=== PATIENT | female | born 1940 | race Caucasian/White ===

== ENCOUNTER 2022-03-10 15:13 | Observation (INO) | payer MEDICARE, OTHER, SELFPAY ==
[2022-03-10] VITALS (11 sets, daily range): BP systolic 149–201; BP diastolic 59–106; PULSE 78–91; RESP 15–18; TEMP 36.1–36.8; O2SAT 95–99; BMI 27.9; BMI 27.1
--- NOTE | 2022-03-10 15:17 | ED.RN ---
THIS RN CALLED FROM [facility] TO HAVE PT EVALUATED BY PHYSICIAN IN [facility] DUE TO NEURO SX. PT ROOMED, AT REQUEST OF PHYSICIAN. NO STROKE ALERT INITIATED IN [facility] DUE TO PHYSICIAN REQUEST TO SEE PT IN ROOM.
--- NOTE | 2022-03-10 15:23 | EKG12_ITS ---
Test Reason : R/O STROKE Blood Pressure : / mmHG Vent. Rate : 084 BPM Atrial Rate : 084 BPM P-R Int : 238 ms QRS Dur : 092 ms QT Int : 386 ms P-R-T Axes : 040 014 026 degrees QTc Int : 456 ms Sinus rhythm with 1st degree A-V block Nonspecific ST and T wave abnormality Abnormal ECG Confirmed by HERMELINDO BURDICK, JENNIFER ([id number]), society editor RAFIQ COMBS ([id number]) on 03/15/2022 10:18:23 AM Referred By: LÓPEZ Confirmed By:JENNIFER CASAREZ MD
--- NOTE | 2022-03-10 15:27 | CT_ITS ---
STUDY: CT HEAD STROKE PROTOCOL W/O CONTRAST INJECTION REASON FOR EXAM: Female, 81 years old. Neuro deficit, acute, stroke suspected RADIATION DOSAGE (If Supplied By Facility): CTDIvol = ( 47.06 ) mGy, DLP = ( 907.97 ) mGycm TECHNIQUE: Transaxial CT imaging of the brain was performed without administration of intravenous contrast material. Individualized dose optimization techniques were used for this CT. COMPARISON: No relevant priors. FINDINGS: There is a 1.5 cm soft tissue density overlying the left frontal bone. This may represent epidermoid. Normal calvarium. There is mild cerebral atrophy with widening of the extra-axial spaces and ventricular dilatation. There are areas of decreased attenuation within the white matter tracts of the supratentorial brain, consistent with microvascular disease changes. Normal basal ganglia and thalami. Normal brainstem. Normal cerebellum. There is no intracranial hemorrhage. There are no findings of an acute ischemic infarction. Atherosclerotic calcification of the cavernous portions of the internal carotid arteries bilaterally. Normal visualized paranasal sinuses. ASPECT score: 10 CT/STROKE Brain/Head without Cont IMPRESSION: Chronic involutional changes of the brain. N.B. : The above Results were Read Back by Klyer Rosenbaum MD to [facility] and understanding confirmed on 03/10/2022 15:38:46 (ET). Electronically Signed: Kyler Rosenbaum MD at 15:40 EDT ,
--- NOTE | 2022-03-10 15:27 | CT_ITS ---
STUDY: CTA HEAD AND NECK WITH CONTRAST REASON FOR EXAM: Female, 81 years old. Neuro deficit, acute, stroke suspected RADIATION DOSAGE (If Supplied By Facility): CTDIvol = ( 17.74 ) mGy, DLP = ( 887.62 ) mGycm TECHNIQUE: CT angiography was performed with a multi-detector CT scanner. Data acquisition was obtained from the skull base through the vertex following intravenous administration of IV 100mL Isovue-370. MIP images were reconstructed from the axial data set. Post-processing of the angiographic images was performed, with multiplanar reformation and 3D reconstruction. Individualized dose optimization techniques were used for this CT. COMPARISON: No relevant priors. FINDINGS: Normal bilateral petrous carotid arteries. There is calcified plaque formation of the right cavernous carotid artery, without a cross-sectional luminal stenosis. There is calcified plaque formation of the left cavernous carotid artery, without a cross-sectional luminal stenosis. Normal right A1 segments of the anterior cerebral artery. Normal left A1 segments of the anterior cerebral artery. Normal intact anterior communicating artery (ACOM). Normal bilateral A2 segments of the anterior cerebral arteries. Normal right M1 and M2 segments of the middle cerebral arteries, with a normal M1 bifurcation. Normal left M1 and M2 segments of the middle cerebral arteries, with a normal M1 bifurcation. Normal right posterior communicating artery (PCOM). Normal left posterior communicating artery (PCOM). Normal bilateral vertebral arteries. Normal basilar artery with a normal basilar bifurcation. The visualized bilateral superior cerebellar (SCA) arteries are normal. Normal bilateral P1, P2 and visualized P3 segments of the posterior cerebral arteries. There is no demonstrated aneurysm of the [place]. There is no demonstrated abnormality of the visualized brain. AORTIC ARCH: There is atherosclerotic calcific plaque formation of the aortic arch and great vessels arising from the aortic arch, without a hemodynamically significant stenosis. There is a normal origin of the brachiocephalic, left common carotid, and left subclavian arteries. RIGHT CAROTID ARTERIES: Normal right common carotid artery (CCA). Normal right common carotid bulb. There is mild atherosclerotic plaque formation of the origin of the right internal carotid artery with less than 50% cross sectional diameter stenosis. Normal visualized cervical portion of the right internal carotid artery. Normal origin of the right external carotid artery (ECA). LEFT CAROTID ARTERIES: Normal left common carotid artery (CCA). Normal left common carotid bulb. There is extensive atherosclerotic plaque formation of the origin of the left internal carotid artery with an estimated stenosis of greater than 70%. Normal visualized cervical portion of the left internal carotid artery. Normal origin of the left external carotid artery (ECA). VERTEBRAL ARTERIES: Normal bilateral vertebral arteries. CT/STROKE CTA Head AND Neck W/Con IMPRESSION: Calcific plaque at the origin of the left internal carotid artery causing approximately 70% narrowing. Calcific plaques at the origin of the right internal carotid artery causing less than 50% narrowing. N.B. : The above Results were Read Back by Kyler Rosenbaum MD to [facility] and understanding confirmed on 03/10/2022 15:47:53 (ET). Electronically Signed: Kyler Rosenbaum MD at 15:49 EDT ,
[2022-03-10 15:41] LABS: Absolute Lymphocyte Count 2.05 X10^3/uL (0.83-4.51); Basophil# 0.04 X10^3/uL; Basophil% 0.5 % (0-1); Eosinophil# 0.16 X10^3/uL; Eosinophils% 2.1 % (0-5); Hematocrit 40.5 % (37-47); Hemoglobin 13.4 g/dL (12.0-15.0); Lymphocyte # 2.05 X10^3/ul (0.83-4.51); Lymphocyte % 26.3 % (19-41); Mean Corp Hgb Conc 33.1 g/dL (32-36); Mean Corpuscular Hgb 30.2 pg (27.0-32.0); Mean Corpuscular Volume 91.4 fL (81-99); Mean Platelet Vol. 9.9 fl (6.2-12.0); Monocyte# 0.49 X10^3/uL; Monocyte% 6.3 % (0-10); NRBC Flagged by Analyzer 0 % (0-5); Neutrophil # 5.03 X10^3/uL (2.7-7.7); Neutrophil % 64.5 % (47-70); Platelet Count 212 K/mm3 (150-450); RBC Distribution Width CV 13.3 % (11.6-14.6); RBC Distribution Width SD 44.5 fl (35.1-43.9); Red Blood Count 4.43 M/mm3 (4.2-5.4); White Blood Count 7.8 K/mm3 (4.4-11.0)
[2022-03-10 15:43] LABS: Prothrombin Time (Protime)PT. 12.9 SECONDS (11.7-14.9)
--- NOTE | 2022-03-10 15:49 | EDS_ITS ---
HPI History of Present Illness Chief Complaint: Dizziness Detail of Chief Complaint: Vertigo with onset at 1330 Informant: patient Onset/Context/Timing Onset: Hours Context: Sudden Onset Timing: Continuous Onset: Vertigo Current Severity: Mild Maximum Severity: Moderate Worsened by: Nothing Relieved by: Nothing Associated Symptoms Associated Symptoms: Negative for Headache, Nausea, Vomiting or Chest Pain Narrative Narrative: Patient is a 81-year-old woman with history of type 2 diabetes, hypercholesterolemia who presents with vertigo that started at 1330.'s been continuous. Is not positional. She denies double vision or blurred vision. Denies ringing in ears decreased hearing. Denies trouble with speech or swallowing. She denies paresthesia or anesthesia. She denies weakness in her upper or lower extremities. She denies cardiac, respiratory or GI symptoms. She denies urologic symptoms. Her only complaint is spinning. Her spinning does not resolve when she closes her eyes. Prior similar symptoms: No Recent Illness/Hospitalization: No [facility] Medical History Diabetes Diabetes Hyperlipemia Home Medications fexofenadine 60 mg tablet 60 mg PO BID 03/10/22 [History Last Taken Unknown] fluticasone propionate 110 mcg/actuation HFA aerosol inhaler (Flovent HFA) 2 puff inhalation BID 03/10/22 [History Last Taken Unknown] glimepiride 1 mg tablet 1 tab PO BID 03/10/22 [History Last Taken Unknown] levothyroxine 125 mcg tablet 1 tab PO DAILY 03/10/22 [History Last Taken Unknown] metformin 1,000 mg tablet 1 tab PO BID 03/10/22 [History Last Taken Unknown] pantoprazole 20 mg tablet,delayed release 1 tab PO DAILY 03/10/22 [History Last Taken Unknown] simvastatin 10 mg tablet 1 tab PO DAILY 03/10/22 [History Last Taken Unknown] sitagliptin 100 mg tablet (Januvia) 1 tab PO DAILY 03/10/22 [History Last Taken Unknown] trazodone 50 mg tablet 1 tab PO QHS 03/10/22 [History Last Taken Unknown] Allergy/AdvReac Type Severity Reaction Status Date / Time Sulfa (Sulfonamide Allergy Hives Verified 03/10/22 15:14 Antibiotics) Surgical History History of hysterectomy Social History (Updated 03/10/22 @ 15:[address] Boris Dean MD) household members: none Smoking Status: Never smoker substance use type: does not use ROS ROS ED Constitutional Constitutional ED: Denies chills, fever(s), subjective, sweats or weakness Eyes Eyes: Denies blurry vision, change in vision or diplopia ENT ENT ED: Denies ear pain, rhinorrhea or sore throat Cardiovascular Cardiovascular: Denies chest pain, palpitations or racing heartbeat Respiratory/Chest Respiratory/Chest: Denies cough, dyspnea or dyspnea on exertion Gastrointestinal Gastrointestinal: Denies abdominal pain, diarrhea, melena, nausea or vomiting Genitourinary Genitourinary ED: Denies dysuria, hematuria or urinary frequency Musculoskeletal Musculoskeletal: Denies arthralgias, back pain, myalgias or neck pain Integumentary Denies abscess, Abrasions or rash Neurologic Neurologic: Reports other Details: Vertigo ; Denies headache(s), paresthesias or weakness Psychiatric Psychiatric: Reports anxiety; Denies depression Hematologic/Lymphatic Hematologic/Lymphatic: Denies easy bleeding, easy bruising or lymphadenopathy EXAM Physical Exam Const Vital Signs: 03/10/22 15:15 03/10/22 15:22 03/10/22 15:39 Temperature 97.0 F L 97.0 F L Temperature Source Temporal Temporal Pulse Rate 78 83 87 Respiratory Rate 16 16 15 Blood Pressure 186/106 H 186/106 H 201/61 H Blood Pressure Mean 132 132 107 Pulse Ox 97 95 96 Oxygen Delivery Method Room Air Room Air Room Air 03/10/22 15:41 03/10/22 15:53 03/10/22 16:26 Temperature 97.9 F Temperature Source Oral Pulse Rate 87 78 83 Respiratory Rate 18 18 18 Blood Pressure 199/81 H 197/72 H 167/68 H Blood Pressure Mean 120 113 101 Pulse Ox 98 99 97 Oxygen Delivery Method Room Air Room Air Room Air 03/10/22 16:23 Temperature Temperature Source Pulse Rate 84 Respiratory Rate 16 Blood Pressure 173/74 H Blood Pressure Mean 107 Pulse Ox 97 Oxygen Delivery Method Room Air Positive well nourished and well developed General Appearance ED: well developed and other Patient is flustered and anxious. ; Negative for NAD HEENT Reports TM's clear atraumatic Tympanic Membrane ED: Yes TM's clear Mouth ED: Yes oral and palatal mucosa normal, Yes lips normal and Yes tongue normal Mouth: oral and palatal mucosa normal, lips normal and tongue normal Eyes PERRL and EOMs intact bilaterally General Eye ED: Negative for pale conjunctiva or scleral icterus Neck no lymphadenopathy, supple and no JVD Resp normal respiratory effort and clear to auscultation bilaterally Cardio no murmurs Rate: regular rate Rhythm: regular rhythm GI normal to inspection, nondistended, normoactive bowel sounds, soft to palpation, non-tender and non-distended Back/Spine no CVA tenderness Cervical Spine: Negative for cervical spine tenderness Thoracic Spine / Upper Back: Negative for thoracic spinal tenderness Lumbar Spine / Lower Back: Negative for lumbar spinal tenderness Extremity normal to inspection General Extremety ED: Negative for edema or tenderness General Extremity: Negative for edema Neuro oriented x3, CN's II-XII intact bilaterally and no sensory deficits noted Leandra Coma Scale: document GCS findings Spontaneous Obeys Commands Oriented 15 Sensorium / Orientation: alert, oriented to person, oriented to place and oriented to time Speech: speech normal Motor Exam: strength 5/5 throughout Psych mental status grossly normal Mood & Affect: anxious; Negative for depressed Skin no wounds General Skin Exam: Negative for jaundice Lesions: no lesions Rashes: no rashes STROKE Vital Signs/Narrative: Vital Signs Temp Pulse Resp BP Pulse Ox O2 Del Method 03/10/22 16:23 84 16 173/74 H 97 Room Air 03/10/22 16:26 97.9 F 83 18 167/68 H 97 Room Air 03/10/22 15:53 78 18 197/72 H 99 Room Air 03/10/22 15:41 87 18 199/81 H 98 Room Air 03/10/22 15:39 87 15 201/61 H 96 Room Air 03/10/22 15:22 97.0 F L 83 16 186/106 H 95 Room Air 03/10/22 15:15 97.0 F L 78 16 186/106 H 97 Room Air Inital Vital Signs reviewed: Yes NIHSS Initial: 1a Level of Consciousness: 0 1b LOC Questions (Score 2 if aphasic/stupor): 0 1c LOC Commands (Only score 1st attempt): 0 2 Best Gaze (If aphasic, use reflexive mvmts.): 0 3 Visual: 0 4 Facial Palsy: 0 5 Motor Arm Right (UN = amputation/fusion): 0 5 Motor Arm Left: 0 6 Motor Leg Right: 0 6 Motor Leg Left: 0 7 Limb ataxia (Only + if out of proportion): 0 8 Sensory (Aphasia/stupor=0 or 1, coma=2): 0 9 Best Language: 0 10 Dysarthria (mute, coma=2, intubated=UN): 0 11 Extinction and Inattention (only scored if +): 0 Total Score: 0 MDM MDM MDM Narrative Medical decision making narrative: Patient presents with vertigo. This may represent atypical presentation of paroxysmal benign positional vertigo versus cerebellar stroke. Doubt hemorrhage. Blood pressure is elevated. This may be due to stroke or anxiousness. Patient's NIH is 0. Stroke order set was initiated. I received a call from Dr. Thony De Leon patient that the CT minus scan revealed atrophy only. Dr. Monge was the neurologist from [facility]. His assessment was same as mine. We discussed no tPA. Patient will need an MRI. Lab Data Attestation: I reviewed the patient's lab results. Labs: Laboratory Results - last 24 hr 03/10/22 03/10/22 03/10/22 15:22 15:22 15:22 WBC 7.8 RBC 4.43 Hgb 13.4 Hct 40.5 MCV 91.4 MCH 30.2 MCHC 33.1 RDW Std Deviation 44.5 H RDW Coeff of Armond 13.3 Plt Count 212 MPV 9.9 Immature Gran % (Auto) 0.300 Neut % (Auto) 64.5 Lymph % (Auto) 26.3 [place] % (Auto) 6.3 Eos % (Auto) 2.1 Baso % (Auto) 0.5 Absolute Neuts (auto) 5.0 Absolute Lymphs (auto) 2.05 Nucleated RBC % 0 PT 12.9 INR 1.0 APTT 27.0 Sodium 136 Potassium 3.6 Chloride 102 Carbon Dioxide 30.0 Anion Gap 4 L BUN 15 Creatinine 0.79 Estim Creat Clear Calc 41.05 Est GFR (MDRD) Af Amer 90 Est GFR (MDRD) Non-Af 75 BUN/Creatinine Ratio 19.0 Glucose 117 H Calcium 9.0 Troponin I High Sens 8 POC Glucose 03/10/22 15:22 WBC RBC Hgb Hct MCV MCH MCHC RDW Std Deviation RDW Coeff of Armond Plt Count MPV Immature Gran % (Auto) Neut % (Auto) Lymph % (Auto) [place] % (Auto) Eos % (Auto) Baso % (Auto) Absolute Neuts (auto) Absolute Lymphs (auto) Nucleated RBC % PT INR APTT Sodium Potassium Chloride Carbon Dioxide Anion Gap BUN Creatinine Estim Creat Clear Calc Est GFR (MDRD) Af Amer Est GFR (MDRD) Non-Af BUN/Creatinine Ratio Glucose Calcium Troponin I High Sens POC Glucose 114 H Radiography Diagnostic Testing: Clinical Impression(s) from Imaging Studies Brain CT 03/10/22 15:27 IMPRESSION: Chronic involutional changes of the brain. N.B. : The above Results were Read Back by [facility] and understanding confirmed on 03/10/2022 15:38:46 (ET). Electronically Signed: Kyler Rosenbaum MD at 15:40 EDT , ADDENDUM: 03/10/22 1546 IMPRESSION: Chronic involutional changes of the brain. N.B. : The above Results were Read Back by K[facility] and understanding confirmed on 03/10/2022 15:38:46 (ET). Electronically Signed: Kyler Rosenbaum MD at 15:40 EDT , Head/Neck CTA 03/10/22 15:27 IMPRESSION: Calcific plaque at the origin of the left internal carotid artery causing approximately 70% narrowing. Calcific plaques at the origin of the right internal carotid artery causing less than 50% narrowing. N.B. : The above Results were Read Back by Kyler Rosenbaum MD to Boriswolf[facility] and understanding confirmed on 03/10/2022 15:47:53 (ET). Electronically Signed: Kyler Rosenbaum MD at 15:49 EDT , ADDENDUM: 03/10/22 1555 IMPRESSION: Calcific plaque at the origin of the left internal carotid artery causing approximately 70% narrowing. Calcific plaques at the origin of the right internal carotid artery causing less than 50% narrowing. N.B. : The above Results were Read Back by K[facility] and understanding confirmed on 03/10/2022 15:47:53 (ET). Electronically Signed: Kyler Rosenbaum MD at 15:49 EDT , Rhythm Strip Rhythm Strip: Sinus Rhythm Rate: 88 Ectopy: None EKG Initial EKG: Attestation: I personally reviewed and interpreted this EKG as follows: Interpretation: Sinus Rhythm (Rate is 84 with a first-degree AV block. [place] interval is 238 ms. QS duration 92 ms. QT duration 386 ms. There is minimal no ossific T wave abnormality. [place] is normal.) Discharge Plan Dx/Rx/DC Orders Clinical Impression: Vertigo Disposition Disposition: Acute Care Hospital [facility]
[2022-03-10 15:51] LABS: Anion Gap 4 (5-15); BUN 15 mg/dL (7-18); Chloride 102 mmol/L (98-107); Creatinine, Serum 0.79 mg/dL (0.55-1.02); EST Glomerular Filtration Rate 75 mL/min (>60); Est Glom Filt Rate - Afr Amer 90 mL/min (>60); Estimated Creatinine Clearance 41.05 ml/min; Glucose 117 mg/dL (74-106); Potassium 3.6 mmol/L (3.5-5.1); Sodium Level 136 mmol/L (136-145); Troponin-I HS 8 pg/mL (3.0-54.0)
[2022-03-10] MEDS: Ondansetron 4 MG/2 ML Vial IV (16:00)
[2022-03-10 16:10] LABS: Bedside Glucose 114 mg/dL (74-106)
--- NOTE | 2022-03-10 16:14 | ECHOD_ITS ---
Reason For Study: TIA/STROKE Procedure This was a 2D Doppler, Color Flow transthoracic echocardiogram. The study was technically difficult. Exam performed portable in patient room. Left Ventricle Normal LV size. Sigmoid septum. Left ventricular systolic function is normal. The estimated ejection fraction is 70 %. Diastolic function is indeterminate. No regional wall motion abnormalities noted. Right Ventricle Normal RV size. Normal systolic function. Atria Normal left atrium. Normal right atrium. No doppler evidence for ASD. Bubble contrast study negative for right to left interatrial shunt. Mitral Valve There is mild mitral annular calcification. Normal mitral valve. Mild (1+) mitral valve insufficiency. Tricuspid Valve Normal tricuspid valve. Trivial tricuspid valve insufficiency. Right ventricular systolic pressure estimated to be 26 mmHg. Aortic Valve Trisinus/trileaflet aortic valve. Mild focal aortic valve calcification. Pulmonic Valve The pulmonic valve is not well visualized. Great Vessels Normal sized aortic root. Pericardium/Pleural No pericardial effusion. Medication Performed a rapid injection of agitated mix of 9 cc saline and 1cc air to assess for atrial septal defect. MMode/2D Measurements & Calculations LVIDd: 3.9 cm IVSd: 1.4 cm Ao root diam: 3.1 cm LVIDs: 2.7 cm LVPWd: 1.1 cm RVDd: 3.2 cm FS: 32.1 % LAV(MOD-bp): 45.0 ml LVAd ap4: 20.6 cm2 SV(MOD-sp4): 29.7 ml LAV(MOD-bp) Indexed: 24.8 ml/m2 LVLd ap4: 7.0 cm LAV(MOD-sp2): 41.2 ml EDV(MOD-sp4): 49.5 ml LAV(MOD-sp4): 43.8 ml EDV(sp4-el): 51.6 ml LVAs ap4: 11.7 cm2 LVLs ap4: 5.8 cm ESV(MOD-sp4): 19.8 ml ESV(sp4-el): 19.8 ml EF(MOD-sp4): 60.0 % EF(sp4-el): 61.6 % SV(sp4-el): 31.8 ml LA A4 area: 15.9 cm2 LA dimension(2D): 3.1 cm RA A4 area: 13.8 cm2 Time Measurements MV dec time: 0.19 sec Doppler Measurements & Calculations MV E max iván: 95.0 cm/sec Lat Peak E' Iván: 6.8 cm/sec Med Peak E' Iván: 6.6 cm/sec MV A max iván: 133.3 cm/sec E/E' lat: 14.0 E/E' med: 14.5 MV E/A: 0.71 Ao V2 max: 185.3 cm/sec LV V1 max: 92.9 cm/sec PA V2 max: 107.0 cm/sec Ao max P.7 mmHg LV V1 max P.5 mmHg TR max iván: 239.9 cm/sec TR max P.0 mmHg ECHO/Echo Complete Interpretation Summary The study was technically difficult. Left ventricular systolic function is normal. The estimated ejection fraction is 70 %. Sigmoid septum. There is mild mitral annular calcification. Mild (1+) mitral valve insufficiency. Trivial tricuspid valve insufficiency. Mild focal aortic valve calcification. Right ventricular systolic pressure estimated to be 26 mmHg. Diastolic function is indeterminate. Bubble contrast study negative for right to left interatrial shunt. Ordering Physician: Hamida Anderson Referring Physician: DARIN ALONZO Performed By: Imelda Gong RDCS
--- NOTE | 2022-03-10 16:14 | MRI_ITS ---
STUDY: MRI BRAIN WITHOUT CONTRAST REASON FOR EXAM: Female, 81 years old. dizziness TECHNIQUE: Standardized multiplanar fat and water weighted pulse sequences were obtained. COMPARISON: CT of CTA Brain 03/10/2022 FINDINGS: There is moderate cerebral atrophy with widening of the extra-axial spaces and ventricular dilatation. There are multiple white matter hyperintensities, distributed throughout the deep white matter tracts of the cerebral hemispheres, consistent with moderate chronic white matter ischemic changes. There is no evidence for recent intracranial ischemia or other cause of cytotoxic edema on diffusion weighted imaging (DWI). Normal bilateral basal ganglia. Normal thalami. There is no extra-axial fluid accumulation. Normal flow voids within the major intracranial circulation suggesting patency by spin echo criteria. Normal sella turcica, pituitary gland, infundibular stalk, optic chiasm and hypothalamus. Normal tectal plate and pineal gland. Normal midbrain, alyssa and medulla. Normal cerebellum. Normal basal cisterns. Normal bilateral temporal bones. Normal bilateral internal auditory canals. No demonstrated orbital abnormality, within the constraints of a routine brain study. Normal visualized paranasal sinuses. Normal calvarium and skull base. 2 subcutaneous nodules left scalp measuring up to 15 mm. Normal visualized upper cervical spine. MRI/Brain without Contrast IMPRESSION: Involutional changes of the brain, as described above. Electronically Signed: Nakul Crooks MD at 21:07 EDT ,
--- NOTE | 2022-03-10 16:38 | NURSING ---
PER PT IT IS OK FOR FRIEND LISBETH AGUIRRE TO RECEIVE MEDICAL INFO IF SHE CALLS IN. [phone]
--- NOTE | 2022-03-10 16:39 | HP.PCM.HOS_ITS ---
HPI - General General Date of Admission: 03/10/22 Date of Service: 03/10/22 Chief Complaint: Dizziness HPI Narrative ERA PARKER, is a 81 F who presented to the emergency department at [facility] on 03/10/2022 with a chief complaint of dizziness. The patient reports that her dizziness occurred abruptly while she was driving her car and she was able to safely snout puller. It started about 1 PM and she came to the emergency department and stroke team was called. She is never had anything like this previously and has no associated symptoms other than nausea caused by the dizziness. She was well prior to this event. She states she has a known history of elevated blood pressure however is on no medications for this. She states that the dizziness feels like the world is spinning around her and has been fairly unsubsiding however is starting to experiencing some abatement of this dizziness. She had no vomiting. Vital signs upon presentation the emergency department showed a temperature of 97, heart rate of 78, blood pressure of 186/106, respiratory rate of 16, oxygen saturation of 97% on room air. Her CBC is unremarkable. Her coags are normal. Her chemistry panel is normal other than a mildly elevated glucose at 117 and she is a known diabetic. Her troponin was 8. Her TSH is 0.51. Her EKG was normal sinus rhythm without any ST-T wave changes consistent with ischemia. A CT of her brain showed chronic involutional changes with no acute pathology. The CTA of her head and neck showed calcific plaques at the origin of the left internal artery carotid with 70% narrowing and 50% narrowing of the right internal carotid artery with normal bilateral vertebral arteries. She was evaluated by [facility] stroke neurologist while in the emergency department and they recommended a follow-up MRI and further work-up for acute stroke with concern for posterior circulation stroke. [facility] Medical History (Updated 03/10/22 @ 16:[address] Hamida Anderson DO) Diabetes Diabetes Hyperlipemia Home Medications fexofenadine 60 mg tablet 60 mg PO BID 03/10/22 [History Last Taken Unknown] fluticasone propionate 110 mcg/actuation HFA aerosol inhaler (Flovent HFA) 2 puff inhalation BID 03/10/22 [History Last Taken Unknown] glimepiride 1 mg tablet 1 tab PO BID 03/10/22 [History Last Taken Unknown] levothyroxine 125 mcg tablet 1 tab PO DAILY 03/10/22 [History Last Taken Unknown] metformin 1,000 mg tablet 1 tab PO BID 03/10/22 [History Last Taken Unknown] pantoprazole 20 mg tablet,delayed release 1 tab PO DAILY 03/10/22 [History Last Taken Unknown] simvastatin 10 mg tablet 1 tab PO DAILY 03/10/22 [History Last Taken Unknown] sitagliptin 100 mg tablet (Januvia) 1 tab PO DAILY 03/10/22 [History Last Taken Unknown] trazodone 50 mg tablet 1 tab PO QHS 03/10/22 [History Last Taken Unknown] Allergy/AdvReac Type Severity Reaction Status Date / Time Sulfa (Sulfonamide Allergy Hives Verified 03/10/22 15:14 Antibiotics) Family History (Updated 03/10/22 @ 16:[address] Hamida Anderson DO) Other Diabetes Hypertension Surgical History (Updated 03/10/22 @ 16:[address] Hamida Anderson DO) History of hysterectomy History of thyroidectomy Social History (Updated 03/10/22 @ 16:[address] Hamida Anderson DO) household members: none Smoking Status: Never smoker alcohol intake: current alcohol intake frequency: holidays/special occasions only substance use type: does not use ROS Constitutional Constitutional: Denies anorexia, change in weight, chills, fatigue, fever(s), malaise, night sweats, weakness or other Eyes Eyes: Denies blurry vision, change in eye color, change in vision, discharge from eye(s), double vision, erythema, eye pain, loss of vision or other ENT HEENT: Denies abnormal hearing, dysphagia, ear pain, epistaxis, headache(s), hearing loss, nasal congestion, nasal discharge, post nasal drip, sinus pr essure, sore throat or other Cardiovascular Cardiovascular: Denies chest pain, claudication, dyspnea on exertion, edema, lightheadedness, orthopnea, palpitations, paroxysmal nocturnal dyspnea, rapid heart rate, syncope or other Respiratory/Chest Respiratory/Chest: Reports cough, dyspnea, excessive phlegm production and hemoptysis; Denies productive cough, shortness of breath at rest, shortness of breath with exertion, wheezing or other Gastrointestinal Gastrointestinal: Reports nausea; Denies abdominal pain, coffee ground emesis, constipation, diarrhea, dyspepsia, hematemesis, hematochezia, loose stools, melena, vomiting or other Genitourinary Genitourinary: Denies burning urination, difficulty urinating, dysuria, hematuria, nocturia, urinary frequency, urinary hesitancy, urinary incontinence, urinary urgency or other Musculoskeletal Musculoskeletal: Denies arthralgias, back pain, joint pain, joint stiffness, joint swelling, myalgias, neck pain or other Neurologic Neurologic: Reports disequilibrium and dizziness; Denies abnormal gait, abnormal speech, confusion, focal weakness, headache(s), numbness, paresthesias, seizure- like activity, seizures, syncope, tingling, tremor(s) or other Psychiatric Psychiatric: Reports anxiety; Denies depression, homicidal ideation, suicidal ideation or other Endocrine Endocrinology: Denies change in body appearance, cold intolerance, excessive sweating, heat intolerance, polydipsia, polyuria or other Hematologic/Lymphatic Hematologic/Lymphatic: Denies anemia, easy bleeding, easy bruising, lymphadenopathy or other Allergic/Immunologic Allergic/Immunologic: Denies rhinitis, hives, eczemia, asthma or other Vital Signs Vital Signs Vital Signs: 03/10/22 15:15 03/10/22 15:22 03/10/22 15:39 Temperature 97.0 F L 97.0 F L Temperature Source Temporal Temporal Pulse Rate 78 83 87 Respiratory Rate 16 16 15 Blood Pressure 186/106 H 186/106 H 201/61 H Blood Pressure Mean 132 132 107 Pulse Ox 97 95 96 Oxygen Delivery Method Room Air Room Air Room Air 03/10/22 15:41 03/10/22 15:53 03/10/22 16:26 Temperature 97.9 F Temperature Source Oral Pulse Rate 87 78 83 Respiratory Rate 18 18 18 Blood Pressure 199/81 H 197/72 H 167/68 H Blood Pressure Mean 120 113 101 Pulse Ox 98 99 97 Oxygen Delivery Method Room Air Room Air Room Air 03/10/22 16:23 Temperature Temperature Source Pulse Rate 84 Respiratory Rate 16 Blood Pressure 173/74 H Blood Pressure Mean 107 Pulse Ox 97 Oxygen Delivery Method Room Air Weight Weight: 76.1 kg Body Mass Index (BMI) 27.9 Physical Exam Const alert, oriented x3 and no apparent distress Constitutional Narrative: Anxious, obese, older white female sitting up in bed, friend at bedside, patient appears comfortable and nontoxic however she does appear somewhat anxious General Appearance: cooperative HEENT normocephalic, head/scalp atraumatic, hearing grossly normal bilaterally and moist oral mucous membranes HEENT Narrative: Dentition is good for age, Mallampati is 1, no thrush Eyes PERRL, EOMs intact bilaterally and conjunctivae normal Eyes Narrative: No scleral icterus, no nystagmus Neck no lymphadenopathy, supple, no JVD and no carotid bruits Neck Narrative: Trachea midline, no thyroid enlargement Resp normal respiratory effort, no retractions, no use of accessory muscles and clear to auscultation bilaterally Auscultation: Negative for crackles, rales, rhonchi or wheezes Cardio regular rate, regular rhythm, S1 normal heart sound, S2 normal heart sound, no murmurs, no rub, no gallops, no clicks and no JVD GI normal to inspection, nondistended, normoactive bowel sounds, soft to palpation, non-tender and non-distended Extremity no clubbing, cyanosis or edema Extremity Narrative: 2+ pedal pulses Skin no rashes or lesions noted, no wounds, skin turgor normal, no jaundice, no petechiae and no mottling Skin Narrative: Subcutaneous cyst on left frontal area of skull subcutaneously Neuro oriented x3, CN's II-XII intact bilaterally, moves all extremities and no focal motor deficits Neuro Narrative: Normal sensation Psych affect normal Mood & Affect: anxious Results Lab / Micro Data Attestation: I reviewed the patient's lab results. Result Diagrams: 03/10/22 15:22 03/10/22 15:22 Labs: Laboratory Results - last 24 hr 03/10/22 15:22: WBC 7.8, RBC 4.43, Hgb 13.4, Hct 40.5, MCV 91.4, MCH 30.2, MCHC 33.1, RDW Std Deviation 44.5 H, RDW Coeff of Armond 13.3, Plt Count 212, MPV 9.9, Immature Gran % (Auto) 0.300, Neut % (Auto) 64.5, Lymph % (Auto) 26.3, [place] % (Auto) 6.3, Eos % (Auto) 2.1, Baso % (Auto) 0.5, Absolute Neuts (auto) 5.0, Absolute Lymphs (auto) 2.05, Nucleated RBC % 0 03/10/22 15:22: PT 12.9, INR 1.0, APTT 27.0 03/10/22 15:22: Sodium 136, Potassium 3.6, Chloride 102, Carbon Dioxide 30.0, Anion Gap 4 L, BUN 15, Creatinine 0.79, Estim Creat Clear Calc 41.05, Est GFR (MDRD) Af Amer 90, Est GFR (MDRD) Non-Af 75, BUN/Creatinine Ratio 19.0, Glucose 117 H, Calcium 9.0, Troponin I High Sens 8 03/10/22 15:22: POC Glucose 114 H Rhythm Strip Rhythm Strip: Sinus Rhythm Rate: 88 Ectopy: None Radiology Impression Brain CT 03/10/22 15:27 IMPRESSION: Chronic involutional changes of the brain. N.B. : The above Results were Read Back by Kyler Rosenbaum MD to [facility] and understanding confirmed on 03/10/2022 15:38:46 (ET). Electronically Signed: Kyler Rosenbaum MD at 15:40 EDT , ADDENDUM: 03/10/22 1546 IMPRESSION: Chronic involutional changes of the brain. N.B. : The above Results were Read Back by Kyler Rosenbaum MD to [facility] and understanding confirmed on 03/10/2022 15:38:46 (ET). Electronically Signed: Kyler Rosenbaum MD at 15:40 EDT , Head/Neck CTA 03/10/22 15:27 IMPRESSION: Calcific plaque at the origin of the left internal carotid artery causing approximately 70% narrowing. Calcific plaques at the origin of the right internal carotid artery causing less than 50% narrowing. N.B. : The above Results were Read Back by Kyler Rosenbaum MD to [facility] and understanding confirmed on 03/10/2022 15:47:53 (ET). Electronically Signed: Kyler Rosenbaum MD at 15:49 EDT , ADDENDUM: 03/10/22 1555 IMPRESSION: Calcific plaque at the origin of the left internal carotid artery causing approximately 70% narrowing. Calcific plaques at the origin of the right internal carotid artery causing less than 50% narrowing. N.B. : The above Results were Read Back by Kyler Rosenbaum MD to [facility] and understanding confirmed on 03/10/2022 15:47:53 (ET). Electronically Signed: Kyler Rosenbaum MD at 15:49 EDT , Assessment & Plan Assessment/Plan (1) Vertigo: (2) Nausea: (3) Carotid artery stenosis: PLAN: Plan Vertigo -Slowly improving however still having persistent symptoms -Mild associated nausea -[facility] stroke neurologist recommends stroke work-up to rule out posterior circu lation issues -No nystagmus noted on exam and symptoms are constant and nonreproducible -MRI -Echocardiogram -High-dose statin -Check lipids -Check hemoglobin A1c -As needed meclizine -PT/OT consultation -IV fluids at a low rate 50 cc/h with persistent nausea Nausea secondary to above -As needed Zofran -IV fluids Carotid artery stenosis -CTA done on admission showed left ICA 70% stenosis and right ICA less than 50% stenosis -We will check carotid Dopplers as CTA sometimes over calls stenosis -We will refer to vascular surgery for follow-up after discharge -I do not believe this is the etiology for her acute vertigo Elevated blood pressure -She states he has a known history of elevation however she is not on any home medications -We will currently use as needed's and allow for permissive hypertension with stroke concerns -May need to initiate medication prior to discharge--> would start with lisinopril given diabetes history DM-2 -Hold home glimepiride/metformin/Januvia -Sliding scale insulin -Accu-Cheks before meals and at bedtime -Check hemoglobin A1c Hyperlipidemia -Continue statin although substitute simvastatin for high-dose Lipitor GERD -Continue Protonix Allergies -Continue fexofenadine -Continue Flovent DVT prophylaxis -Lovenox subcu daily -SCDs Next CODE STATUS -Full code as discussed with patient emergency department at admission Charges/Coding Visit Charges Inpatient E&M: 54842 Init Hosp L3
[2022-03-10 16:52] LABS: Thyroid Stim Hormone (TSH) 0.51 uIU/mL (0.358-3.74)
[2022-03-10 16:53] LABS: Hemoglobin A1c 6.7 % (3.8-5.6)
--- NOTE | 2022-03-10 16:59 | CDU_ITS ---
Reason For Study: Stenosis Rt. Velocities/BP Lt. Velocities/BP Prox CCA 49/9 cm/sec. Prox CCA 66/9 cm/sec. Mid CCA 51/9 cm/sec. Mid CCA 68/12 cm/sec. Dist CCA 53/11 cm/sec. Dist CCA 86/13 cm/sec. Prox ICA 55/8 cm/sec. Prox ICA 120/14 cm/sec. Mid ICA 60/13 cm/sec. Mid ICA 94/14 cm/sec. Dist ICA 81/20 cm/sec. Dist ICA 79/18 cm/sec. Rt. ICA/CCA = 1.6. Lt. ICA/CCA = 1.8. Prox ECA 93/0 cm/sec. Prox ECA 124/2 cm/sec. Rt. Vert. 55/11 cm/sec. Lt. Vert. 39/8 cm/sec. Right Extracranial There is heterogeneous, irregular atherosclerotic plaque noted in the right common carotid artery. There is heterogeneous, irregular atherosclerotic plaque noted in the right internal carotid artery. There is intimal thickening but no significant atherosclerotic plaque noted in the right external carotid artery. Antegrade flow is noted in the right vertebral artery. Left Extracranial There is heterogeneous, irregular atherosclerotic plaque noted in the left common carotid artery. There is heterogeneous, irregular atherosclerotic plaque noted in the left internal carotid artery. There is intimal thickening but no significant atherosclerotic plaque noted in the left external carotid artery. Antegrade flow is noted in the left vertebral artery. Procedure Carotid Duplex [id number]. This is a Carotid Duplex examination using B-mode, color flow and specral Doppler. Exam performed portable in patient room. VL/Carotid Duplex Ultrasound Interpretation Summary Calcific plaque with shadowing at the proximal right internal carotid artery wi th less than 50% stenosis Less than 50% stenosis right external carotid artery Irregular calcific plaque at the proximal left internal carotid artery with les s than 50% stenosis although close to this range. Less than 50% stenosis left external carotid artery Patent and antegrade vertebral arteries bilaterally Ordering Physician: Hamida Anderson Referring Physician: Rupinder Lei Performed By: Nohemy Haro RDCS, RVT
[2022-03-10] MEDS: Lactated Ringers 1,000 ML 50 ML IV (18:18)
[2022-03-10] MEDS: 0.9% Saline Lock 10 ML Syringe IV (18:19)
[2022-03-10] MEDS: Atorvastatin Calcium 80 MG Tablet PO (21:46)
[2022-03-10 22:15] LABS: Bedside Glucose 267 mg/dL (74-106)
[2022-03-11] VITALS (7 sets, daily range): BP systolic 138–182; BP diastolic 61–72; PULSE 80–88; RESP 16–18; TEMP 36.4–37; O2SAT 95–97; BMI 27.1
[2022-03-11 04:23] LABS: Absolute Lymphocyte Count 2.35 X10^3/uL (0.83-4.51); Absolute Neutrophil Count 4.7 X10^3/uL (2.0-7.7); Basophil# 0.04 X10^3/uL; Basophil% 0.5 % (0-1); Eosinophils% 1.3 % (0-5); Hematocrit 37.9 % (37-47); Hemoglobin 12.7 g/dL (12.0-15.0); Lymphocyte # 2.35 X10^3/ul (0.83-4.51); Lymphocyte % 30.4 % (19-41); Mean Corp Hgb Conc 33.5 g/dL (32-36); Mean Corpuscular Hgb 30.3 pg (27.0-32.0); Mean Corpuscular Volume 90.5 fL (81-99); Mean Platelet Vol. 9.9 fl (6.2-12.0); Monocyte# 0.51 X10^3/uL; Monocyte% 6.6 % (0-10); NRBC Flagged by Analyzer 0 % (0-5); Neutrophil % 60.9 % (47-70); Platelet Count 219 K/mm3 (150-450); RBC Distribution Width CV 13.2 % (11.6-14.6); RBC Distribution Width SD 43.7 fl (35.1-43.9); Red Blood Count 4.19 M/mm3 (4.2-5.4); White Blood Count 7.7 K/mm3 (4.4-11.0)
[2022-03-11 04:46] LABS: Anion Gap 7 (5-15); BUN 13 mg/dL (7-18); Calcium,Total 8.8 mg/dL (8.5-10.1); Chloride 103 mmol/L (98-107); Cholesterol 143 mg/dL (200); Creatinine, Serum 0.62 mg/dL (0.55-1.02); EST Glomerular Filtration Rate 99 mL/min (>60); Est Glom Filt Rate - Afr Amer 119 mL/min (>60); Estimated Creatinine Clearance 41.05 ml/min; Glucose 173 mg/dL (74-106); High Density Lipoprotein 57 mg/dL; Magnesium 1.7 mg/dL (1.6-2.6); Potassium 3.9 mmol/L (3.5-5.1); Sodium Level 137 mmol/L (136-145); Triglycerides 97 mg/dL; Very Low Density Lipoprotein 19 mg/dL (5-40)
[2022-03-11 04:47] LABS: Phosphorus 2.2 mg/dL (2.5-4.9)
[2022-03-11] MEDS: Levothyroxine 125 MCG Tablet PO (06:21)
[2022-03-11 06:50] LABS: Bedside Glucose 135 mg/dL (74-106)
[2022-03-11] MEDS: Budesonide Respules 0.5 MG/2 ML AMPUL.NEB. INHALATION (07:06)
[2022-03-11] MEDS: Aspirin 81 MG TAB.CHEW PO (08:43)
[2022-03-11] MEDS: Loratadine 10 MG Tablet PO (08:43)
[2022-03-11] MEDS: Pantoprazole Sodium 20 MG Tablet PO (08:43)
[2022-03-11] MEDS: Enoxaparin 40 MG/0.4 ML Syringe SC (08:43)
[2022-03-11] MEDS: Lisinopril 20 MG Tablet PO (10:09)
[2022-03-11] MEDS: Insulin Lispro 100 UNIT/ML INSULN.PEN SC (10:58)
[2022-03-11 11:10] LABS: Bedside Glucose 280 mg/dL (74-106)
--- NOTE | 2022-03-11 11:37 | PCM.DC.SUM ---
Providers Date of Admission: 03/10/22 Primary Care Physician: Dr. Rupinder Lei MD Reason For Visit: DIZZINESS Diagnosis Discharge Diagnosis (1) Vertigo: Status: Acute Code(s): R42 - Dizziness and giddiness (2) Nausea: Status: Acute Code(s): R11.0 - Nausea (3) Carotid artery stenosis: Status: Acute Code(s): I65.29 - Occlusion and stenosis of unspecified carotid artery Plan Vertigo -Slowly improving however still having persistent symptoms -Mild associated nausea -[facility] stroke neurologist recommends stroke work-up to rule out posterior circulation issues -No nystagmus noted on exam and symptoms are constant and nonreproducible -MRI -Echocardiogram -High-dose statin -Check lipids -Check hemoglobin A1c -As needed meclizine -PT/OT consultation -IV fluids at a low rate 50 cc/h with persistent nausea Nausea secondary to above -As needed Zofran -IV fluids Carotid artery stenosis -CTA done on admission showed left ICA 70% stenosis and right ICA less than 50% stenosis -We will check carotid Dopplers as CTA sometimes over calls stenosis -We will refer to vascular surgery for follow-up after discharge -I do not believe this is the etiology for her acute vertigo Elevated blood pressure -She states he has a known history of elevation however she is not on any home medications -We will currently use as needed's and allow for permissive hypertension with stroke concerns -May need to initiate medication prior to discharge--> would start with lisinopril given diabetes history DM-2 -Hold home glimepiride/metformin/Januvia -Sliding scale insulin -Accu-Cheks before meals and at bedtime -Check hemoglobin A1c Hyperlipidemia -Continue statin although substitute simvastatin for high-dose Lipitor GERD -Continue Protonix Allergies -Continue fexofenadine -Continue Flovent DVT prophylaxis -Lovenox subcu daily -SCDs Next CODE STATUS -Full code as discussed with patient emergency department at admission Medications at Discharge Home Medications aspirin 81 mg chewable tablet 1 tab heart health 03/10/22 fexofenadine 60 mg tablet 60 mg PO BID allergies 03/10/22 fluticasone propionate 110 mcg/actuation HFA aerosol inhaler (Flovent HFA) 2 puff inhalation BID allergies 03/10/22 glimepiride 1 mg tablet 1 tab PO BID diabetes 03/10/22 levothyroxine 125 mcg tablet 1 tab PO DAILY thyroid 03/10/22 metformin 1,000 mg tablet 1 tab PO BID diabetes 03/10/22 pantoprazole 20 mg tablet,delayed release 1 tab PO DAILY reflux 03/10/22 simvastatin 10 mg tablet 1 tab PO DAILY cholesterol 03/10/22 sitagliptin 100 mg tablet (Januvia) 1 tab PO DAILY diabetes 03/10/22 trazodone 50 mg tablet 1 tab PO QHS sleep 03/10/22 lisinopril 20 mg tablet 20 mg PO DAILY #30 tabs 03/11/22 Hospital Course Operations None Procedures 2-D Echocardiogram and - (CTA of the head and neck/carotid ultrasound/MRI of the brain) Summary of Care Provided Minutes Spent on Discharge: 36 Hospital Course: Mrs. Leija is a 81-year-old white female who presented to the emergency department [facility] on 03/10/2022 with a chief complaint of dizziness. The patient reported that her dizziness occurred abruptly while she was driving her car at about 1 PM. She came to the emergency department and a stroke team was called. She indicated she had never had anything like this previously and had no associated symptoms other than the nausea caused by the dizziness. She was well prior to this event. She reported she had a history of elevated blood pressure however was on no medication. She reported that the dizziness felt like the world was spinning around her and was fairly on subsiding until presenting to the emergency department however upon my exam on admission it was abating at that time. She had no vomiting. Her vital signs upon presentation the emergency department showed a temperature of 97, heart rate of 78, blood pressure of 186/106, respiratory rate of 16, oxygen saturation of 97% on room air.? Her CBC is unremarkable.? Her coags are normal.? Her chemistry panel is normal other than a mildly elevated glucose at 117 and she is a known diabetic.? Her troponin was 8.? Her TSH is 0.51.? Her EKG was normal sinus rhythm without any ST-T wave changes consistent with ischemia.? A CT of her brain showed chronic involutional changes with no acute pathology.? The CTA of her head and neck showed calcific plaques at the origin of the left internal artery carotid with 70% narrowing and 50% narrowing of the right internal carotid artery with normal bilateral vertebral arteries.? She was evaluated by [facility] stroke neurologist while in the emergency department and they recommended a follow-up MRI and further work-up for acute stroke with concern for posterior circulation stroke. She was admitted to the PCU and an MRI of her brain was performed which showed only involutional changes of the brain that were chronic. Given the abnormalities in her carotid arteries on the CTA bilateral carotid duplex was performed and showed less than 50% stenosis in the right internal carotid artery and irregular calcific plaque in the proximal left internal carotid artery of approximately 50%. Both vertebral arteries were antegrade and patent. Her hemoglobin A1c was 6.8 indicating good control. Her lipids showed a total cholesterol of 143/LDL 67/HDL 57 indicating good control. Her echocardiogram showed an EF of 70% with a sigmoid septum, no significant valvular abnormalities and a right ventricular systolic pressure of 22 mmHg with a negative bubble study. By the morning after admission her vertigo had completely subsided. We never did find any organic cause for her vertigo however BPPV and labyrinthitis would certainly be in the differential. Her blood pressure remained elevated throughout her hospitalization and she was therefore started on lisinopril 20 mg daily. We discussed the side effects of cough and angioedema and discussed what she needed to do if these develop. She is able to be discharged home in stable condition on 03/11/2022. We have instructed her to follow-up with her primary care physician in the next 1 to 2 weeks. We have also made a referral to vascular surgery to follow her carotid artery stenosis however there is no need for surgical intervention at this time based on the carotid duplex results. Discharge diagnoses: Vertigo-resolved (etiology identified) Nausea-resolved Carotid artery stenosis Hypertension DM-2 Hyperlipidemia GERD Allergies Physical Exam Narrative Dizziness has resolved. No more nausea or vomiting. Patient states she feels back to her baseline. Const alert, oriented x3 and no apparent distress Constitutional Narrative: Overweight, older white female sitting up in a chair at the bedside, she states she feels back to her baseline and woke up without any dizziness. General Appearance: cooperative, comfortable, well kempt and well developed Orientation / Consciousness: awake Exam Limitations: no limitations Nutritional Appearance: overweight HEENT normocephalic, head/scalp atraumatic, hearing grossly normal bilaterally and moist oral mucous membranes HEENT Narrative: Mallampati 2, dentition is good for age, no thrush Eyes PERRL, EOMs intact bilaterally and conjunctivae normal Eyes Narrative: No scleral icterus, no nystagmus Neck no lymphadenopathy, supple, no JVD and no carotid bruits Neck Narrative: Trachea midline, no thyroid enlargement Resp normal respiratory effort, no retractions, no use of accessory muscles and clear to auscultation bilaterally Auscultation: Negative for crackles, rales, rhonchi or wheezes Cardio regular rate, regular rhythm, S1 normal heart sound, S2 normal heart sound, no murmurs, no rub, no gallops, no clicks and no JVD GI normal to inspection, nondistended, normoactive bowel sounds, soft to palpation, non-tender and non-distended Extremity no clubbing, cyanosis or edema Extremity Narrative: 2+ pedal pulses Skin no rashes or lesions noted, no wounds, skin turgor normal, no jaundice, no petechiae and no mottling Skin Narrative: Subcutaneous cyst on left frontal area of skull subcutaneously Neuro oriented x3, CN's II-XII intact bilaterally, moves all extremities and no focal motor deficits Neuro Narrative: Normal sensation Sensorium / Orientation: awake, alert and oriented to person Speech: speech normal Motor Exam: strength 5/5 throughout Psych affect normal Mood & Affect: anxious Weight / BMI Weight Weight: 74.1 kg Body Mass Index (BMI) 27.1 ABG / Lab / Microbiology Data Result Diagrams: 03/11/22 03:52 03/11/22 03:52 Laboratory: Laboratory Results - last 24 hr 03/10/22 15:22: WBC 7.8, RBC 4.43, Hgb 13.4, Hct 40.5, MCV 91.4, MCH 30.2, MCHC 33.1, RDW Std Deviation 44.5 H, RDW Coeff of Armond 13.3, Plt Count 212, MPV 9.9, Immature Gran % (Auto) 0.300, Neut % (Auto) 64.5, Lymph % (Auto) 26.3, Daggett % (Auto) 6.3, Eos % (Auto) 2.1, Baso % (Auto) 0.5, Absolute Neuts (auto) 5.0, Absolute Lymphs (auto) 2.05, Nucleated RBC % 0 03/10/22 15:22: PT 12.9, INR 1.0, APTT 27.0 03/10/22 15:22: Sodium 136, Potassium 3.6, Chloride 102, Carbon Dioxide 30.0, Anion Gap 4 L, BUN 15, Creatinine 0.79, Estim Creat Clear Calc 41.05, Est GFR (MDRD) Af Amer 90, Est GFR (MDRD) Non-Af 75, BUN/Creatinine Ratio 19.0, Glucose 117 H, Calcium 9.0, Troponin I High Sens 8 03/10/22 15:22: POC Glucose 114 H 03/10/22 15:22: TSH 0.51 03/10/22 15:22: Hemoglobin A1c 6.7 H 03/10/22 20:39: POC Glucose 267 H 03/11/22 03:52: WBC 7.7, RBC 4.19 L, Hgb 12.7, Hct 37.9, MCV 90.5, MCH 30.3, MCHC 33.5, RDW Std Deviation 43.7, RDW Coeff of Armond 13.2, Plt Count 219, MPV 9.9, Immature Gran % (Auto) 0.300, Neut % (Auto) 60.9, Lymph % (Auto) 30.4, Daggett % (Auto) 6.6, Eos % (Auto) 1.3, Baso % (Auto) 0.5, Absolute Neuts (auto) 4.7, Absolute Lymphs (auto) 2.35, Nucleated RBC % 0 03/11/22 03:52: Sodium 137, Potassium 3.9, Chloride 103, Carbon Dioxide 27.0, Anion Gap 7, BUN 13, Creatinine 0.62, Estim Creat Clear Calc 41.05, Est GFR (MDRD) Af Amer 119, Est GFR (MDRD) Non-Af 99, BUN/Creatinine Ratio 21.0 H, Glucose 173 H, Calcium 8.8, Magnesium 1.7, Triglycerides 97, Cholesterol 143, LDL Cholesterol 67, VLDL Cholesterol 19, HDL Cholesterol 57 03/11/22 03:52: Phosphorus 2.2 L 03/11/22 06:22: POC Glucose 135 H 03/11/22 10:55: POC Glucose 280 H Radiography Diagnostic Testing: Radiology Impression Brain CT 03/10/22 15:27 IMPRESSION: Chronic involutional changes of the brain. N.B. : The above Results were Read Back by Kyler Rosenbaum MD to Boris Dean and understanding confirmed on 03/10/2022 15:38:46 (ET). Electronically Signed: Kyler Rosenbaum MD at 15:40 EDT , ADDENDUM: 03/10/22 1546 IMPRESSION: Chronic involutional changes of the brain. N.B. : The above Results were Read Back by Kyler Rosenbaum MD to Boris Dean and understanding confirmed on 03/10/2022 15:38:46 (ET). Electronically Signed: Kyler Rosenbaum MD at 15:40 EDT , Head/Neck CTA 03/10/22 15:27 IMPRESSION: Calcific plaque at the origin of the left internal carotid artery causing approximately 70% narrowing. Calcific plaques at the origin of the right internal carotid artery causing less than 50% narrowing. N.B. : The above Results were Read [facility] by [facility] and understanding confirmed on 03/10/2022 15:47:53 (ET). Electronically Signed: Kyler Rosenbaum MD at 15:49 EDT , ADDENDUM: 03/10/22 1555 IMPRESSION: Calcific plaque at the origin of the left internal carotid artery causing approximately 70% narrowing. Calcific plaques at the origin of the right internal carotid artery causing less than 50% narrowing. N.B. : The above Results were Read Back by Kyler Rosenbaum MD to Boris Dean and understanding confirmed on 03/10/2022 15:47:53 (ET). Electronically Signed: Kyler Rosenbaum MD at 15:49 EDT , Brain MRI 03/10/22 16:14 IMPRESSION: Involutional changes of the brain, as described above. Electronically Signed: Nakul Crooks MD at 21:07 EDT , Carotid Duplex 03/10/22 16:59 Interpretation Summary Calcific plaque with shadowing at the proximal right internal carotid artery with less than 50% stenosis Less than 50% stenosis right external carotid artery Irregular calcific plaque at the proximal left internal carotid artery with less than 50% stenosis although close to this range. Less than 50% stenosis left external carotid artery Patent and antegrade vertebral arteries bilaterally Ordering Physician: Hamida Anderson Referring Physician: Rupinder Lei Performed By: Nohemy Haro, KAYLA, RVT D/C Instructions Discharge Diet: Low fat / Low cholesterol and 1800 Calorie Control Diet Discharge Activity: Return to Normal Activity and May Drive Meaningful Use Info Meaningful Use Diagnoses (Choose all that apply): None applicable Discharge Plan Admission Admit Date/Time: 03/10/22 16:10 Primary Reason for Your Visit: Vertigo Attending Provider: Hamida Anderson Primary Care Provider: Rupinder Lei Discharge Orders/Prescriptions Prescriptions: New lisinopril 20 mg Tablet 20 mg PO DAILY Qty: 30 1RF Continued trazodone 50 mg tablet 1 tab PO QHS fexofenadine 60 mg Tablet 60 mg PO BID simvastatin 10 mg tablet 1 tab PO DAILY glimepiride 1 mg tablet 1 tab PO BID pantoprazole 20 mg tablet,delayed release (DR/EC) 1 tab PO DAILY metformin 1,000 mg tablet 1 tab PO BID levothyroxine 125 mcg tablet 1 tab PO DAILY fluticasone propionate [Flovent HFA] 110 mcg/actuation HFA aerosol inhaler 2 puff INHALATION BID Januvia 100 mg tablet 1 tab PO DAILY Label Comments: 1 tablet by mouth once a day aspirin 81 mg Tablet,Chewable 1 tab Referrals / Follow Up: Rupinder Lei MD [Primary Care Provider] - Within 2 Weeks Richi Degroot MD [STAFF PHYSICIAN] - 03/17/22 10:00 am (Carotid artery stenosis) Disposition Disposition (needs filled in before D/C Order can be placed): Home, Self Care Charges/Coding Visit Charges Inpatient E&M: 55710 Disch Hosp
--- NOTE | 2022-03-11 13:26 | CASEMGMT ---
Pt states no concerns with going home at time of discharge. Pt states ambulated with staff this morning and states no dizziness. Pt voices no further questions/concerns/needs. Javi SWANSON CM
== END 2022-03-11 11:39 | disposition home or self-care (01) ==
LOC: ED 16:19 → PCU 16:40
PROVIDERS: Admitting Provider Internal Medicine; Emergency Provider Emergency Medicine; PCP Internal Medicine; Visit Provider Internal Medicine
DX: R42 Dizziness and giddiness (principal); E11.65 Type 2 diabetes mellitus with hyperglycemia; I65.23 Occlusion and stenosis of bilateral carotid arteries; E78.5 Hyperlipidemia, unspecified; I10 Essential (primary) hypertension; Z79.84 Long term (current) use of oral hypoglycemic drugs; K21.9 Gastro-esophageal reflux disease without esophagitis; Z79.890 Hormone replacement therapy; Z79.899 Other long term (current) drug therapy; Z79.82 Long term (current) use of aspirin; R29.700 NIHSS score 0; R11.0 Nausea
CPT/HCPCS: 36415; 70450; 70496; 70498; 70551; 80048; 80061; 82962; 83036; 83735; 84100; 84443; 84484; 85025; 85610; 85730; 93005; 93306; 93880; 94640; 94762; 96361; 96372; 96374; 99218; 99284; J7040; J7050; J7120; Q9967; A4216; G0378; J2405

== ENCOUNTER → 2023-03-07 | Outpatient (CLI) | payer MEDICARE, OTHER, SELFPAY ==
--- NOTE | 2023-03-07 13:47 | CDU_ITS ---
Reason For Study: Carotid stenosis Rt. Velocities/BP Lt. Velocities/BP Prox CCA 46.6/9.7 cm/sec. Prox CCA 56/9.7 cm/sec. Mid CCA 44.7/8.8 cm/sec. Mid CCA 41.9/9.7 cm/sec. Dist CCA 41.9/7.8 cm/sec. Dist CCA 46.6/11.6 cm/sec. Prox ICA 47.5/8.8 cm/sec. Prox ICA 91.6/13.5 cm/sec. Mid ICA 59.4/13.8 cm/sec. Mid ICA 76.2/15.7 cm/sec. Dist ICA 85.3/19.2 cm/sec. Dist ICA 70.7/16.8 cm/sec. Rt. ICA/CCA = 1.91. Lt. ICA/CCA = 1.97. Prox ECA 74.9/5 cm/sec. Prox ECA 89.1/4.1 cm/sec. Rt. Vert. 51.3/11.6 cm/sec. Lt. Vert. 43.2/9.1 cm/sec. Right Extracranial There is heterogeneous, irregular atherosclerotic plaque noted in the right common carotid artery. There is heterogeneous, irregular atherosclerotic plaque noted in the right internal carotid artery. There is heterogeneous, irregular atherosclerotic plaque noted in the right external carotid artery. Antegrade flow is noted in the right vertebral artery. Left Extracranial There is heterogeneous, irregular atherosclerotic plaque noted in the left common carotid artery. There is heterogeneous, irregular atherosclerotic plaque noted in the left internal carotid artery. There is intimal thickening but no significant atherosclerotic plaque noted in the left external carotid artery. Antegrade flow is noted in the left vertebral artery. Procedure Carotid Duplex 19814. This is a Carotid Duplex examination using B-mode, color flow and specral Doppler. Exam performed in department. VL/Carotid Duplex Ultrasound Interpretation Summary Calcific plaque with some shadowing proximal right internal carotid artery with less than 50% stenosis Less than 50% stenosis right external carotid artery Irregular calcific plaque with shadowing at the proximal left internal carotid artery with less than 50% stenosis Less than 50% stenosis left external carotid artery Patent and antegrade vertebral arteries bilaterally No change from her previous examination of March 11, 2022 Ordering Physician: Richi Degroot Referring Physician: Rupinder Lei Performed By: Eve Betts RVT
== END | disposition home or self-care (01) ==
LOC: CVS 13:46
PROVIDERS: PCP Internal Medicine; Referring Provider Surgery Trauma Surgery; Visit Provider Surgery Trauma Surgery
DX: R42 Dizziness and giddiness (principal); I65.29 Occlusion and stenosis of unspecified carotid artery
CPT/HCPCS: 93880

== ENCOUNTER 2023-04-11 10:21 | Outpatient (RCR) | payer MEDICARE, OTHER, SELFPAY | END 2023-05-11 23:59 | LOC: NS 10:21 | PROVIDERS: PCP Internal Medicine; Referring Provider Nurse Practitioner; Visit Provider Nurse Practitioner | DX: Z71.3 Dietary counseling and surveillance (principal); E11.9 Type 2 diabetes mellitus without complications | CPT/HCPCS: 97802 ==

== ENCOUNTER 2023-05-17 10:17 | Outpatient (RCR) | payer MEDICARE, OTHER, SELFPAY | END 2023-06-10 23:59 | LOC: DC 10:17 | PROVIDERS: PCP Internal Medicine; Referring Provider Nurse Practitioner; Visit Provider Nurse Practitioner | DX: E11.9 Type 2 diabetes mellitus without complications (principal) | CPT/HCPCS: 97803 ==

== ENCOUNTER 2023-07-04 10:23 | Outpatient (RCR) | payer MEDICARE, OTHER, SELFPAY | END 2023-07-11 23:59 | LOC: DC 10:23 | PROVIDERS: PCP Internal Medicine; Referring Provider Nurse Practitioner; Visit Provider Nurse Practitioner | DX: E11.9 Type 2 diabetes mellitus without complications (principal) | CPT/HCPCS: 97803 ==

== ENCOUNTER 2023-09-26 10:58 | Outpatient (RCR) | payer MEDICARE, OTHER, SELFPAY | END 2023-10-11 23:59 | LOC: DC 10:58 | PROVIDERS: PCP Internal Medicine; Referring Provider Nurse Practitioner; Visit Provider Nurse Practitioner | DX: E11.9 Type 2 diabetes mellitus without complications (principal) | CPT/HCPCS: 97803 ==

== ENCOUNTER 2024-10-22 10:30 | Outpatient (RCR) | payer MEDICARE, OTHER, SELFPAY ==
--- NOTE | 2024-09-25 12:02 | HP.PTEVAL ---
Patient's Visit Information Visit Information Visit Information: ERA PARKER is a 84 year old F referred to Physical Therapy by Dr. Arsh Chaney DPM with a diagnosis of R ankle instability. Date of Evaluation: 09/25/24 Physical Therapist: Tin Perdomo, PT, ATC Visit Plan Frequency: 2x /Week Duration: 4-6 Weeks Plan: R ankle strengthening, stretching, balance and proprio, stair negotiation, and HEP Subjective Subjective: Pt reports her R ankle has been giving out on her once a week for the last year. Pt notes she decided to tell her foot doctor about that since she lives along now and wants to be more careful. Pt reports her ankle is not really in pain now, but jest feels really weak. Pt notes she is limited with leaving her house at this time secondary to not feeling safe while walking in bad conditions. Pt reports she has had 3 x-rays which revealed an old fracture in her R ankle. Pt notes she has been given no limitations as she is able to continue exercising as before at this time. Pt notes no prior Hx of falls secondary to her R ankle becoming weak. No tingling or numbness in R LE. Pt has stairs in her house that she has to negotiate in order to do her laundry that she has to negotiate one stair at a time. Objective Objective: Neuro: B LE's are WNL to light touch throughout Palpation: Pt is very sore on the anterior talofibular lig. ROM: L ankle DF= 0, PF= 55; R ankle DF= -2, PF= 50 MMT: L ankle DF= 34, PF= 47; R ankle DF= 25, PF= 45 #F Balance/Special Test Scores Lower Extremity Functional Score: 75 Goals Goal 1:: Increase R ankle DF strength x 10#F to aid with stair negotiation Goal Time Frame: 4-6 Weeks Goal 2:: Increase R ankle DF ROM x 10 degrees to aid with restoring a more normalized gait pattern Goal Time Frame: 4-6 Weeks Goal 3:: I with HEP Goal Time Frame: 4-6 Weeks Rehabilitation Potential Physical Therapy Diagnosis: Pt has R ankle weakness and a Hx of instability Rehabilitation Potential: Good Anticipated Interventions Patient/Client Instruction: Educate patient on: Condition and Plan of Care For the Purpose of:: To improve self management Therapeutic Exercise to Include: Strength training, Balance training, Flexibilty training, Gait and locomotor training, Active ROM and Dynamic Lumbar Stabilization For the Purpose of:: To decrease pain, To increase ROM and To improve muscle performance and motor function Cryotherapy (ice pack, ice massage): Yes For the Purpose of:: To decrease pain Text: Thank you for the opportunity to evaluate your patient. For Medicare and Medicare HMO plans, please review the plan of care and approve it. It will need to be FAXED BACK to us at [phone] for Medicare purposes. For Medicare only, by signing this I certify the plan of care. Please let me know if there are questions or concerns regarding this plan of care. Physician Signature: Date:
--- NOTE | 2024-10-22 11:11 | HP.PTDCSUM ---
Discharge Summary D/C summary: It has been my pleasure to treat ERA PARKER referred by Dr. Arsh Chaney, ADITYA, with the diagnosis of R ankle instability for a total of 9 visit(s). Discharge Date: Please see the following information for a summary of their discharge status. Subjective Subjective: I am ready to be done Overall Improvement % Improvement: 100 Objective Objective/Function: R ankle pain 0/10 Pt is I with HEP R ankle DF ROM= 3 degrees R ankle DF MMT= 33 #F Rx goals achieved Goals Goal 1:: Increase R ankle DF strength x 10#F to aid with stair negotiation Goal Progress: Goal Met Goal 2:: Increase R ankle DF ROM x 10 degrees to aid with restoring a more normalized gait pattern Goal Progress: Goal Met Goal 3:: I with HEP Goal Progress: Goal Met Plan Plan: Discharge to HEP D/C Information d/c sentence: If there are questions or concerns regarding this patient's physical therapy, please feel free to call me at [phone]. Thank you for the referral of this patient. Sincerely, Tin Perdomo, PT, ATC Balance/Gait/Functional tests Balance/Special Test Scores Lower Extremity Functional Score: 75 Improvement % Improvement: 100
== END 2024-10-22 19:00 | disposition home or self-care (01) ==
LOC: PT 10:30
PROVIDERS: PCP Internal Medicine; Visit Provider Podiatrist
DX: M25.371 Other instability, right ankle (principal)
CPT/HCPCS: 97110; 97161; 97530

== ENCOUNTER 2025-04-12 21:23 | Inpatient (IN) | payer MEDICARE, OTHER, SELFPAY ==
[2025-04-12 21:24] VITALS: BP 177/81; PULSE 86; RESP 14; TEMP 37.3; O2SAT 98; BMI 26.4
--- NOTE | 2025-04-12 22:02 | CT_ITS ---
PROCEDURE: CTA HEAD AND NECK W/ CONTRAST 04/12/2025 REASON FOR EXAM: DIZZINESS TECHNIQUE: CTA HEAD AND NECK W/ CONTRAST Multiplanar Sagittal and Coronal images were obtained. CONTRAST: Isovue 370 VOLUME: 131 mL One or more dose reduction techniques were used (e.g., Automated exposure control, adjustment of the mA and/or kV according to patient size, use of iterative reconstruction technique). RADIATION DOSE SUMMARY: CTDlvol: 80 mGy DLP: 1459 mGycm COMPARISON: 03/10/2022 FINDINGS: Severe white matter change. Dilated ventricles, likely central atrophy. Arterial calcifications. No definite acute abnormal brain densities. No intracranial hemorrhage. No midline shift. No acute scalp or skull pathology. Multiple skin nodules in the scalp. Bilateral lens extraction. Clear sinuses. Lung apices are clear. Unremarkable superior mediastinum. Cervical spine degeneration. No acute neck soft tissue pathology. No abnormal brain enhancement. The thoracic arch is unremarkable. The common carotid arteries, extracranial internal carotid arteries, and vertebral arteries are patent. No high-grade stenosis, dissection, or aneurysm. There is approximately 50% narrowing in the proximal right ICA, and approximately 70% narrowing in the proximal left ICA.. There is bilateral intracranial ICA calcified plaque, mainly in cavernous portions. No thrombosis, high-grade stenosis, dissection or aneurysm. Dural venous sinuses are patent. CT/CTA Head AND Neck W/ Contrast IMPRESSION: Cdfx-[id number]-atyy-right stenosis, proximal extracranial ICA, as seen previously . No thrombosis, high-grade stenosis, dissection or aneurysm in the cervical or i ntracranial arteries. Patent dural venous sinuses. Reading Location: [place] [id number]
--- NOTE | 2025-04-12 22:02 | EKG12_ITS ---
Test Reason : DIZZY Blood Pressure : */* mmHG Vent. Rate : 81 BPM Atrial Rate : 81 BPM P-R Int : 288 ms QRS Dur : 98 ms QT Int : 394 ms P-R-T Axes : 99 37 30 degrees QTcB Int : 457 ms Sinus rhythm with 1st degree A-V block Nonspecific ST and T wave abnormality Abnormal ECG Confirmed by CASSANDRA BURDICK, MARGO ([id number]), certified registered dental assistant RAFIQ COMBS ([id number]) on 04/15/2025 7:45:35 AM Referred By: Confirmed By: MARGO TRUJILLO MD
--- NOTE | 2025-04-12 22:03 | EX.ED.DYSGE1 ---
HPI History of Present Illness Chief Complaint: Dizziness Informant: patient and friend Narrative Narrative: Presents by EMS from home worsening vertigo symptoms. Woke up 6 or 7 AM this morning she states she felt dizzy with room spinning she went back to bed woke up feeling better she tried eating breakfast symptoms returned vomiting. Symptomatic throughout the day walking unstable gait. She had a fall. She bumped her elbow. No head injuries. Reports generalized headache. Baby aspirin no other anticoagulants. No cough no recent sinus congestion no ear ringing. History of similar a few years ago and had been hospitalized overnight states she had an MRI she felt better the following day did not go home on any medications. Hypertension diabetes, hypothyroidism, hyperlipidemia Prior similar symptoms: Yes [facility] Medical History (Updated 04/13/25 @ 01:[address] Raj Schroeder, DO) Essential hypertension Carotid artery stenosis Nausea Diabetes Hyperlipemia Home Medications ?Medication ?Instructions ?Recorded ?Last Taken ?Type aspirin 81 mg chewable tablet 1 tab PO DAILY heart health 03/10/22 Unknown History fexofenadine 60 mg tablet 60 mg PO BID allergies 03/10/22 Unknown History glimepiride 1 mg tablet 1 tab PO BID diabetes 03/10/22 Unknown History levothyroxine 125 mcg tablet 1 tab PO SUTUWETHFRSA thyroid 03/10/22 Unknown History metformin 1,000 mg tablet 1 tab PO BID diabetes 03/10/22 Unknown History pantoprazole 20 mg tablet,delayed 1 tab PO DAILY reflux 03/10/22 Unknown History release simvastatin 10 mg tablet 1 tab PO DAILY cholesterol 03/10/22 Unknown History sitagliptin phosphate 100 mg 1 tab PO DAILY diabetes 03/10/22 Unknown History tablet (Januvia) trazodone 50 mg tablet 1 tab PO QHS sleep 03/10/22 Unknown History amlodipine 2.5 mg tablet 2.5 mg PO DAILY 03/21/23 Unknown History telmisartan 20 mg tablet 20 mg PO DAILY 03/21/23 Unknown History fluticasone 250 mcg-salmeterol 50 1 ea inhalation BID 04/13/25 Unknown History mcg/dose blistr powdr for inhalation ipratropium bromide 42 mcg (0.06 2 spray intranasal 4X/DAY 04/13/25 Unknown History %) nasal spray levothyroxine 125 mcg tablet 62.5 mcg PO MO 04/13/25 Unknown History (Euthyrox) magnesium chloride 64 mg 128 mg PO DAILY 04/13/25 Unknown History (magnesium chloride) tablet,delayed release (Mag 64) [id number]-wubuvhri-kfssit 1 tab PO DAILY 04/13/25 Unknown History tablet (A Thru Z High Potency tablet) Allergy/AdvReac Type Severity Reaction Status Date / Time Sulfa (Sulfonamide Allergy Hives Verified 04/12/25 21:23 Antibiotics) Family History Other Diabetes Hypertension Surgical History History of thyroidectomy History of hysterectomy Social History household members: none Smoking Status: Never smoker alcohol intake: current alcohol intake frequency: holidays/special occasions only substance use type: does not use ROS ROS ED Constitutional Constitutional ED: Denies chills, fever(s) or sweats ENT ENT ED: Denies sore throat Cardiovascular Cardiovascular: Denies chest pain, leg edema, palpitations or racing heartbeat Respiratory/Chest Respiratory/Chest: Denies cough, dyspnea or dyspnea on exertion Gastrointestinal Gastrointestinal: Reports nausea and vomiting; Denies abdominal pain or diarrhea Genitourinary Genitourinary ED: Denies dysuria, hematuria or urinary frequency Musculoskeletal Musculoskeletal: Denies back pain, extremity pain or neck pain Integumentary Denies rash or wounds Neurologic Neurologic: Reports headache(s) and other Details: Dizziness ; Denies paresthesias or weakness EXAM Physical Exam Const Vital Signs: 04/12/25 21:24 04/12/25 22:35 04/12/25 23:00 Temperature 99.1 F Temperature Source Oral Pulse Rate 86 79 81 Respiratory Rate 14 15 13 Blood Pressure 177/81 H 135/60 H 132/66 H Blood Pressure Mean 113 85 88 Pulse Ox 98 98 99 Oxygen Delivery Method Room Air Room Air Room Air 04/13/25 00:06 04/13/25 00:43 Temperature 99.0 F Temperature Source Pulse Rate 81 82 Respiratory Rate 15 14 Blood Pressure 148/66 H 137/67 H Blood Pressure Mean 93 90 Pulse Ox 97 98 Oxygen Delivery Method Room Air Positive well nourished and well developed General Appearance ED: well developed and NAD HEENT Reports moist mucous membranes normocephalic and atraumatic Eyes Eyes Narrative: No nystagmus I became aware mother General Eye ED: Yes normal appearance of both eyes Neck full ROM Chest Wall Chest: Negative for tenderness Resp normal respiratory effort and normal air movement Effort and Inspection: symmetric chest movement; Negative for respiratory distress Cardio regular rate, regular rhythm and no murmurs Peripheral Pulses: pulses 2+ throughout GI normal to inspection, nondistended, normoactive bowel sounds and non-tender Palpation: Negative for guarding or rebound tenderness present Extremity normal to inspection Extremity Narrative: Left lower extremity: Small contusion olecranon elbow no bony tenderness no deformities. Full range of motion. Pulses intact distally. General Extremety ED: Yes tenderness; Negative for edema General Extremity: Negative for edema Neuro oriented x3, CN's II-XII intact bilaterally and no sensory deficits noted Neuro Narrative: NIH of 0 Sensorium / Orientation: awake and alert Skin no rashes or lesions noted and no wounds MDM MDM MDM Narrative Medical decision making narrative: interventions / MDM: Differential diagnosis: Vertigo, nausea and vomiting, left elbow contusion Diagnosis considered but do not suspect: No clinical fracture, intracranial hemorrhage however CT negative My EKG interpretation: Sinus rate of 81, no ST changes. First-degree AV block. Imaging independently reviewed and interpreted by myself: N/A External documents reviewed: N/A Test considered but not ordered:N/A ED course: Presenting with worsening vertigo symptoms similar a few years ago. She is a diabetic. Reports headache. Symptoms started 16 hours ago. IV established we will give Reglan. CT angiogram head and neck. EKG labs ordered. 2311: Patient reports nausea improved still slight vertigo. I will add a scopolamine patch. Awaiting CT results. On my review did not appreciate any bleeds. Reviewing records known carotid stenosis initial and CTA 2021 had 70% blockage in the left 50% right however follow-up ultrasounds maintaining around 50% last time in 2022. She is followed by vascular surgery team here. 0025: CT head results similar from her initial CT angiogram 2021 reporting 70% blockage on the left 50% on the right. She states that she still had symptoms however better than her symptoms from today. Attempted ambulation she is able to get up slowly weak walked to the sink she still felt symptomatic however not as bad as previously. She lives alone. She did have a fall. At this time I will discuss with hospitalist for admission. Re-evaluation: stable Disposition discussed with patient/family/significant other: Patient and friends Case discussed with consulting clinician: Hospitalist This note was generated with [employer] dictation software. It may contain incorrect words, spelling, and punctuation that were not noted in checking the note before signing. Lab Data Attestation: I reviewed the patient's lab results. Labs: Laboratory Results - last 24 hr 04/12/25 04/12/25 04/12/25 22:00 23:00 23:35 WBC 9.9 RBC 4.14 L Hgb 11.7 L Hct 35.3 L MCV 85.3 MCH 28.3 MCHC 33.1 RDW Std Deviation 47.4 H RDW Coeff of Armond 15.3 H Plt Count 235 MPV 10.3 Immature Gran % (Auto) 0.300 Neut % (Auto) 82.2 H Lymph % (Auto) 12.1 L [place] % (Auto) 4.8 Eos % (Auto) 0.2 Baso % (Auto) 0.4 Absolute Neuts (auto) 8.1 H Absolute Lymphs (auto) 1.19 Nucleated RBC % 0 PT Cancelled 14.3 INR Cancelled 1.1 APTT Cancelled 24.8 Sodium 131 L Potassium 4.2 Chloride 96 L Carbon Dioxide 21.5 Anion Gap 14 BUN 16 Creatinine 0.65 L Estim Creat Clear Calc 53.90 Est GFR (MDRD) Non-Af 88 BUN/Creatinine Ratio 24.1 H Glucose 198 H Calcium 8.8 Magnesium 1.6 TSH 1.500 Radiography Diagnostic Testing: Clinical Impression(s) from Imaging Studies Head/Neck CTA 04/12/25 22:02 IMPRESSION: Thfj-dldhegy-oynx-right stenosis, proximal extracranial ICA, as seen previously. No thrombosis, high-grade stenosis, dissection or aneurysm in the cervical or intracranial arteries. Patent dural venous sinuses. Reading Location: [place] [id number] Discharge Plan Dx/Rx/DC Orders Clinical Impression: Vertigo, Bilateral carotid artery disease, Fall, Contusion of elbow, left Disposition Disposition: Acute Care [facility] Discharge Date/Time: 04/13/25 02:07
--- OUTSIDE RECORDS SUMMARY | 2025-04-12 22:19 | XMS RPT_ITS | CCD ---
Author Organization [facility] Care Team Providers Care Batch Freezer Name Role Phone YASHIRA GIORDANO Unavailable Unavailable YASHIRA GIORDANO Unavailable Unavailable Darin Alonzo MD Primary Care Provider Dr. Darin Alonzo Primary Care Provider Dr. Boris Dean Emergency Provider Dr. Hamida Anderson Admit Provider Dr. Hamida Anderson Attending Provider Dr. Hamida Anderson Other Provider Dr. Rogerio Brower Attending Provider Dr. Channing Iqbal Attending Provider Darin Alonzo MD Primary Care Provider Darin Alonzo MD Primary Care Provider Dr. Darin Alonzo Primary Care Provider Dr. Rogerio Brower Attending Provider Dr. 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 PARAFFINER.OLESYA, Griselda Unavailable Lorene Mendez PA-C Unavailable Arsh Chaney Attending Unavailable Darin Alonzo Primary Care Unavailable PHIL, GRISELDA Referring Unavailable GANTA, DARIN Primary Care Unavailable GANTA, DARIN Primary Care Unavailable OLDER, GRISELDA Attending Unavailable GANTA, DARIN Primary Care Unavailable OLDER, GRISELDA Attending Unavailable GANTA, DARIN Primary Care Unavailable GANTA, DARIN Referring Unavailable GANTA, DARIN Primary Care Unavailable OLDER, GRISELDA Referring Unavailable GANTA, DARIN Primary Care Unavailable GANTA, DARIN Primary Care Unavailable DORIE GILL Attending Unavailable OLDER, GRISELDA Attending Unavailable GANTA, DARIN Primary Care Unavailable GANTA, DARIN Primary Care Unavailable OLDER, GRISELDA Referring Unavailable GANTA, DARIN Primary Care Unavailable OLDER, GRISELDA Referring Unavailable OLDER, GRISELDA Referring Unavailable GANTA, DARIN Primary Care Unavailable OLDER, GRISELDA Attending Unavailable GANTA, DARIN Primary Care Unavailable OLDER, GRISELDA Referring Unavailable GANTA, DARIN Primary Care Unavailable OLDER, GRISELDA Attending Unavailable GANTA, DARIN Primary Care Unavailable OLDER, GRISELDA Attending Unavailable GANTA, DARIN Primary Care Unavailable DORIE GILL Attending Unavailable GANTA, DARIN Primary Care Unavailable OLDER, GRISELDA Referring Unavailable GANTA, DARIN Primary Care Unavailable Allergies Allergy Classification Reported Allergen(s) Allergy Type Date of Onset Reaction(s) Facility (20 sources) Sulfonamides (Antibiotic); Translations: [SULFA (SULFONAMIDE ANTIBIOTICS)] Propensity to adverse reactions to drug (disorder) 5 Rash [facility] Other [facility] (20 sources) Lisinopril; Translations: [LISINOPRIL] Drug Allergy 2 Cough [facility] Medications Current Medications Medication Drug Class(es) Dates Sig (Normalized) Sig (Original) amLODIPine 2.5 mg oral tablet (20 sources) Dihydropyridine Calcium Channel Yamileth Start: 03-18-2022 End: 01-10-2025 take 1 tablet by mouth once daily amLODIPine (NORVASC) 2.5 mg tablet Take 1 tablet by mouth once daily. 90 tablet 3 01/10/2025 Active Comment on above: Take 1 tablet by alhaji th once daily. TAKE 1 TABLET BY ALHAJI TH EVERY DAY aspirin 81 mg chewable tablet (20 sources) Platelet Aggregation Inhibitor, Nonsteroidal Anti-inflammatory Drug Start: 03-10-2022 Aspirin Active 1 TABLET March 10, 2022 12:00am Aspirin 81 mg Ta b Take 81 mg by mouth. Active Comment on above: Take 81 mg by mouth. azithromycin 250 mg oral tablet (2 sources) Macrolide Antimicrobial Start: 03-21-20 End: 03-26-20 azithromycin (ZITHROMAX Z-CHEYANNE) 250 mg tablet Take 2 tablets day one, then, 1 tablet daily until gone. 6 tablet 0 03/21/2022 03/26/2022 Active Comment on above: Take 2 tablets day o ne, then, 1 tablet daily until gone. codeine phosphate 2 mg/ml / guaiFENesin 20 mg/ml oral solution (5 sources) Opioid Agonist Start: 04-21-20 End: 04-28-20 take 10 mL by mouth three times daily as needed for cough codeine-guaiFENesin (GUAIFENESIN AC) 10-100 mg/5 mL syrup Indications: Chronic cough Take 10 mL by mouth three times daily as needed for cough for up to 7 days. 118 mL 1 04/21/2022 04/28/2022 Active Start: 04-19-2022 End: 04-26-2022 take 10 mL by mouth every six hours as needed Codeine-guaiFENesin 6.3-100 mg/5 mL liqd Indications: Chronic cough Take 10 mL by mouth every 6 hours as needed for up to 7 days. 473 mL 2 04/19/2022 04/21/2022 Discontinued Comment on above: Take 10 mL by mouth every 6 hours as needed for up to 7 days. Take 15 mL by mouth every 6 hours as needed for up to 7 days. Take 10 mL by mouth three times daily as needed for cough for up to 7 days. doxycycline monohydrate 100 mg oral tablet (3 sources) Tetracycline-cla ss Drug Start: 02-22-2024 End: 02-29-2024 take 1 tablet by mouth twice daily doxycycline monohydrate 100 mg tablet Take 1 tablet by mouth two times a day for 7 days. 14 tablet 0 02/22/2024 02/29/2024 Active Start: 06-02-2022 End: 06-07-2022 take 1 tablet by mouth twice daily doxycycline (VIBRA-TABS) 100 mg tablet Take 1 tablet by mouth twice daily for 5 days. 10 tablet 0 06/02/2022 06/07/2022 Active Comment on above: Take 1 tablet by alhaji twice daily for 5 days. famotidine 40 mg oral tablet (7 sources) Histamine-2 Receptor Antagonist Start: End: 025 take 1 tablet by mouth once daily at bedtime famotidine (PEPCID) 40 mg tablet Take 1 tablet by mouth daily at bedtime. 30 tablet 1 02/07/2025 03/07/2025 Discontinued fexofenadine hydrochloride 60 mg oral tablet (20 sources) Histamine-1 Receptor Antagonist Start: take 1 tablet by mouth twice daily fexofenadine (CECY ALLERGY) 60 mg tablet Indications: Cough , Post-nasal drip , Seasonal allergic rhinitis, unspecified trigger Take 1 tablet by mouth twice daily. 60 tablet 3 01/22/2018 Active Comment on above: Take 1 tablet by alhaji th twice daily. 14 actuat fluticasone furoate 0.1 mg/actuat dry powder inhaler (20 sources) Corticosteroid Start: 024 End: take 1 puff(s) by inhalation once daily fluticasone furoate (ARNUITY ELLIPTA) 100 mcg/actuation inhaler Inhale 1 Puff as instructed once daily. 3 Each 3 09/21/2023 10/18/2024 Discontinued (Course of therapy completed) Start: 09-21-2023 take 1 puff(s) by in halation once daily fluticasone furoate (ARNUITY ELLIPTA) 100 mcg/actuation inhaler Inhale 1 Puff as instructed once daily. 3 Each 3 09/21/2023 Active Start: 06-07-2022 End: 01-10-2025 take 2 spray(s) by mouth once daily for congestion fluticasone (FLONASE) 50 mcg/actuation nasal spray Indications: Acute cough , Nasal congestion Use 2 Sprays in each nostril once daily. Rinse mouth after use. for nasal drainage and congestion 1 Each 06/07/2022 01/10/2025 Discontinued Start: 03-26-2021 End: 11-28-2023 fluticasone (FLOVENT HFA) 11 0 mcg/actuation inhaler Inhale 1 Puff as instructed twice daily. VIA SPACER THEN RINSE AND GARGLE MOUTH WITH WATER. 3 Inhaler 3 03/26/2021 07/19/2022 Discontinued Comment on above: Inhale 1 Puff as ins tructed twice daily. VIA SPACER THEN RINSE AND GARGLE MOUTH WITH WATER. Use 2 Sprays in each nostril once daily. Rinse mouth after use. for nasal drainage and congestion Inhale 1 Puff as ins tructed twice daily. VIA SPACER THEN RINSE AND GARGLE MOUTH WITH WATER. Using once in the morning and increases to BID as needed INHALE 1 PUFF INS TRUCTED TWO TIMES A DAY. VIA SPACER THEN RINSE AND GARGLE MOUTH WITH WATER. USING ONCE IN THE MORNING AND INCREASES TO BID NEEDED Inhale 1 Puff as ins tructed once daily. fluticasone / salmeterol (20 sources) Corticosteroid, beta2-Adrenergic Agonist Start: take 1 puff(s) by inhalation twice daily fluticasone-salmet sona (WIXELA INHUB) 250-50 mcg/dose inhaler Inhale 1 puff as instructed two times a day. 180 each 3 04/01/2025 Active Start: 03-28-2025 take 1 puff(s) by in halation twice daily fluticasone-salmeterol (WIXELA INHUB) 100-50 mcg/dose inhaler Inhale 1 puff as instructed two times a day. 60 each 5 03/28/2025 Active Start: 10-18-2024 End: 03-28-2025 take 1 puff(s) by inhalation twice daily fluticasone-salmeterol (WIXELA INHUB) 250-50 mcg/dose inhaler Inhale 1 Puff as instructed two times a day. 60 Each 10/18/2024 03/28/2025 Discontinued (Course of therapy completed) Start: 10-18-2024 take 1 puff(s) by in halation twice daily fluticasone-salmeterol (WIXELA INHUB) 250-50 mcg/dose inhaler Inhale 1 Puff as instructed two times a day. 60 Each 11 10/18/2024 Active Fluticasone Propionate (Flovent Hfa) 110 mcg/actuation HFA aerosol inhaler (6 sources) Start: 03-10-2022 take 1 puff(s) by inhalation twice daily Fluticasone Propionate (Flovent Hfa) 110 mcg/actuation HFA aerosol inhaler Active 2 PUFF INHALATION TWICE A DAY March 09, 2022 11:00pm Start: 03-10-2022 take 1 puff(s) by in halation twice daily Fluticasone Propionate (Flovent Hfa) 110 mcg/actuation HFA aerosol inhaler Active 2 PUFF INHALATION TWICE A DAY March 10, 2022 12:00am glimepiride 2 mg oral tablet (20 sources) Sulfonylurea Start: 12-29-2023 End: 01-10-2025 take 1 tablet by mouth twice daily at mealtime glimepiride (AMARYL) 2 mg tablet Take 1 tablet by mouth two times a day with meals. 180 tablet 3 01/10/2025 Active Start: 09-18-2023 End: 12-29-2023 take 2 tablets by mouth twice daily at mealtime, then take 2 tablets by mouth in the morning, then take 1 tablet by mouth in the evening glimepiride (AMARYL) 1 mg tablet Take 2 tablets by mouth two times a day with meals. Take 2 tablets in AM and 1 in PM 0 09/18/2023 12/29/2023 Discontinued Start: 08-17-2023 glimepiride (A MARYL) 1 mg tablet Take 2 tablets in AM and 1 in PM 0 08/17/2023 Active Start: 02-11-2022 End: 08-17-2023 take 1 tablet by mouth twice daily at mealtime glimepiride (AMARYL) 1 mg tablet TAKE 1 TABLET BY MOUTH TWICE DAILY WITH MEALS 180 tablet 3 02/11/2022 02/21/2023 Discontinued Start: 04-08-2021 take 1 tablet by alhaji th twice daily at mealtime glimepiride (AMARYL) 1 mg tablet Take 1 tablet by mouth twice daily with meals. 180 tablet 3 04/08/2021 Active Comment on above: Take 1 tablet by alhaji th twice daily with meals. TAKE 1 TABLET BY ALHAJI TH TWICE DAILY WITH MEALS Take 2 tablets in AM and 1 in PM Take 2 tablets by mo ut two times a day with meals. Take 2 tablets in AM and 1 in PM Take 1 tablet by alhaji th two times a day with meals. ipratropium bromide 0.042 mg/actuat metered dose nasal spray (19 sources) Anticholinergic Start: take 2 spray(s) nasal route four times daily ipratropium bromide (ATROVENT) 42 mcg (0.06 %) nasal spray USE 2 SPRAYS NASALLY 4 TIMES DAILY 135 mL 3 03/04/2025 Active Start: 12-13-2024 End: 03-04-2025 ipratropium bromide (ATROVEN T) 42 mcg (0.06 %) nasal spray Use 2 sprays in the nose four times daily. 45 mL 3 12/24/2024 03/04/2025 Discontinued levothyroxine sodium 0.125 mg oral tablet (20 sources) l-Thyroxine Start: 10-22-2021 End: 08-05-2024 levothyroxine (SYNTHROID) 125 mcg tablet Indications: Acquired hypothyroidism Take 1 tablet by mouth once daily. Except take 1/2 tablet on Sundays 90 tablet 3 08/05/2024 Active Comment on above: Take 1 tablet by alhaji once daily. Take 1 tablet by alhaji once daily. Except for one day of the week, take 2 pills TAKE 1 TABLET BY ALHAJI ONCE DAILY Take 1 tablet by alhaji once daily. Except take 2 tablets once day a week Take 1 tablet by alhaji once daily. Except take 2 tablets one day a week TAKE 1 TABLET BY ALHAJI ONCE DAILY EXCEPT TAKE 2 TABLETS 1 DAY PER WEEK Take 1 tablet daily except take 1.5 tablets one day a week lisinopril 20 mg oral tablet (5 sources) Angiotensin Converting Enzyme Inhibitor Start: 03-11-2022 take 20 mg by mouth once daily Lisinopril Active 20 MG PO DAILY March 11, 2022 12:00am magnesium chloride 535 mg delayed release oral tablet (17 sources) Start: 02-07-2025 End: 03-07-2025 take 2 tablets by mouth once daily magnesium chloride [address] tablet Take 2 tablets by mouth once daily. 28 tablet 03/07/2025 Active Start: 01-13-2025 End: 02-07-2025 take 1 tablet by mouth once daily magnesium chloride [address] tablet Take 1 tablet by mouth once daily. 30 tablet 1 01/13/2025 02/07/2025 Discontinued metFORMIN hydrochloride 1000 mg oral tablet (20 sources) Biguanide Start: 01-05-2021 End: 01-10-2025 take 1 tablet by mouth twice daily metFORMIN (GLUCOPHAGE) 1,000 mg tablet Take 1 tablet by mouth two times a day. 180 tablet 3 01/10/2025 Active Comment on above: Take 1 tablet by alhaji twice daily. TAKE 1 TABLET BY ALHAJI TWICE DAILY Multivitamins-[place] ls-Lutein (CENTRUM SILVER) tab (20 sources) Start: 10-25-2011 take 1 tablet by mouth once daily Multivitamins-Mine rals-Lutein (CENTRUM SILVER) tab Take 1 tablet by mouth once daily. 0 10/25/2011 Active Comment on above: Take 1 tablet by alhaji once daily. mupirocin 0.02 mg/mg topical ointment (3 sources) RNA Synthetase Inhibitor Antibacterial Start: 02-22-2024 End: 03-03-2024 mupirocin (BACTROBAN) 2 % ointment Apply to affected area three times a day for 10 days. Apply 1 application to affected area three times a day for 10 days. Location: left elbow wound. 30 g 0 02/22/2024 03/03/2024 Active Start: 02-22-2024 End: 02-22-2024 mupirocin (BACTROBAN) 2 % cr eam Apply 1 application to affected area three times a day for 10 days. Location: left elbow wound 30 g 0 02/22/2024 02/22/2024 Discontinued (Other) pantoprazole 20 mg delayed release oral tablet (20 sources) Proton Pump Inhibitor Start: 09-17-2021 End: 02-18-2025 take 1 tablet by mouth once daily pantoprazole DR (PROTONIX) 20 mg tablet Take 1 tablet by mouth once daily. 90 tablet 3 11/20/2024 Active Comment on above: Take 1 tablet by alhaji daily before breakfast. Take on empty stomach, 1/2 hr before meal. TAKE 1 TABLET BY ALHAJI DAILY BEFORE BREAKFAST ON AN EMPTY STOMACH 1/2 HOUR BEFORE A MEAL predniSONE 10 mg oral tablet (5 sources) Start: 07-06-2023 End: 07-20-2023 take 1 tablet by mouth once daily predniSONE (DELTASONE) 10 mg tablet Take 1 tablet by mouth once daily for 14 days. 14 tablet 0 07/06/2023 07/20/2023 Active Start: 06-17-2022 End: 06-22-2022 take 1 tablet by mouth twice daily predniSONE (DELTASONE) 20 mg tablet Indications: Acute cough Take 1 tablet by mouth twice daily for 5 days. 10 tablet 0 06/17/2022 06/22/2022 Active Comment on above: Take 1 tablet by alhaji th twice daily for 5 days. Take 1 tablet by alhaji th once daily for 14 days. simvastatin 10 mg oral tablet (20 sources) HMG-CoA Reductase Inhibitor Start: 2 End: 5 take 1 tablet by mouth once daily simvastatin (ZOCOR) 10 mg tablet Indications: Hyperlipidemia, unspecified hyperlipidemia type Take 1 tablet by mouth once daily. 90 tablet 3 01/10/2025 Active Start: 02-12-2021 take 1 tablet by alhaji th once daily simvastatin (ZOCOR) 10 mg tablet Indications: Hyperlipidemia, unspecified hyperlipidemia type Take 1 tablet by mouth once daily. 90 tablet 3 02/12/2021 Active Comment on above: Take 1 tablet by alhaji th once daily. TAKE 1 TABLET BY ALHAJI TH ONCE DAILY SITagliptin 100 mg oral tablet (20 sources) Dipeptidyl Peptidase 4 Inhibitor Start: 1 End: 4 take 1 tablet by mouth once daily SITagliptin phosphate (JANUVIA) 100 mg tablet Take 1 tablet by mouth once daily. 90 tablet 3 2024 Active Comment on above: Take 1 tablet by alhaji th once daily. telmisartan 20 mg oral tablet (20 sources) Angiotensin 2 Receptor Yamileth Start: 3 End: 5 take 1 tablet by mouth once daily Telmisartan 20 mg tablet Take 1 tablet by mouth once daily. 90 tablet 3 02/07/2025 Active Comment on above: Take 1 tablet by alhaji th once daily. traZODone hydrochloride 50 mg oral tablet (20 sources) Serotonin Reuptake Inhibitor Start: 2 End: 5 take 1 tablet by mouth once daily at bedtime traZODone (DESYREL) 50 mg tablet Take 1 tablet by mouth daily at bedtime. 90 tablet 1 02/07/2025 Active Start: 02-12-2021 take 1 tablet by alhaji th once daily at bedtime traZODone (DESYREL) 50 mg tablet Take 1 tablet by mouth daily at bedtime. 90 tablet 3 02/12/2021 Active Comment on above: Take 1 tablet by alhaji th daily at bedtime. TAKE 1 TABLET BY ALHAJI DAILY AT BEDTIME Completed/Discontinued Medications Medication Drug Class(es) Dates Sig (Normalized) Sig (Original) [id number] 200 actuat albuterol 0.09 mg/actuat metered dose inhaler (20 sources) beta2-Adrenergic Agonist Start: 06-07-2022 End: 02-21-2023 take 2 puff(s) by inhalation every four hours as needed for cough albuterol HFA (VENTOLIN HFA) 90 mcg/actuation inhaler Indications: Acute cough Inhale 2 Puffs as instructed every 4 hours as needed for wheezing/shortness of breath. or cough 1 Each 1 06/07/2022 02/21/2023 Discontinued (Discontinued by Patient) Comment on above: Inhale 2 Puffs as in structed every 4 hours as needed for wheezing/shortness of breath. or cough benzonatate 100 mg oral capsule (20 sources) Non-narcotic Antitussive Start: 06-07-2022 End: 11-28-2023 take 1 capsule by mouth three times daily as needed for cough benzonatate (TESSALON PERLES) 100 mg capsule Indications: Acute cough Take 1 capsule by mouth three times daily as needed for cough. 30 capsule 06/15/2022 02/21/2023 Discontinued (Course of therapy completed) Comment on above: Take 1 capsule by mo [facility] three times daily as needed for cough. 12 hr guaiFENesin 600 mg extended release oral tablet (20 sources) Start: 06-17-2022 End: 11-28-2023 take 1 tablet by mouth twice daily guaiFENesin (MUCINEX) 600 mg 12 hr tablet Indications: Acute cough Take 1 tablet by mouth twice daily. 60 tablet 5 06/17/2022 11/28/2023 Discontinued Comment on above: Take 1 tablet by alhaji twice daily. montelukast 10 mg oral tablet (8 sources) Leukotriene Receptor Antagonist Start: 04-19-2022 End: 06-17-2022 take 1 tablet by mouth once daily at bedtime montelukast (SINGULAIR) 10 mg tablet Indications: Chronic cough Take 1 tablet by mouth daily at bedtime. 30 tablet 5 04/19/2022 06/17/2022 Discontinued (Discontinued by Patient) Comment on above: Take 1 tablet by alhaji th daily at bedtime. Multivitamins-Mine rals-Lutein (CENTRUM SILVER) ORAL Tab (11 sources) Start: 10-25-2011 take 1 tablet by mouth once daily Multivitamins-Mine rals-Lutein (CENTRUM SILVER) ORAL Tab Take 1 tablet by mouth once daily. 0 10/25/2011 Active Comment on above: Take 1 tablet by alhaji th once daily. naproxen 500 mg oral tablet (15 sources) Nonsteroidal Anti-inflammatory Drug Start: 04-10-2023 End: 11-28-2023 take 1 tablet by mouth every twelve hours as needed naproxen (NAPROSYN) 500 mg tablet Take 1 tablet by mouth twice daily as needed (for pain/inflammation) . Take with food. 15 tablet 04/10/2023 11/28/2023 Discontinued Comment on above: Take 1 tablet by alhaji th twice daily as needed (for pain/inflammation). Take with food. Problems Active Problems Problem Classification Problem Date Documented Date Episodic/Chronic Adjustment disorders (4 sources) Grief finding; Translations: [Adjustment disorder with depressed mood] Onset: 01-10-2025 03-21-2024 Chronic Anxiety disorders (2 sources) Mixed anxiety and depressive disorder; Translations: [Anxiety disorder, unspecified] Onset: 01-10-2025 01-10-2025 Chronic Chronic obstructive pulmonary disease and bronchiectasis (20 sources) Follicular bronchiolitis; Translations: [Unspecified chronic bronchitis] Onset: 10-28-2010 04-22-2020 Chronic Conditions associated with dizziness or vertigo (11 sources) Vertigo; Translations: [Dizziness and giddiness] Episodic Diabetes mellitus without complication (20 sources) Type 2 diabetes mellitus without complication; Translations: [Type 2 diabetes mellitus without complications] Onset: 07-04-2005 Resolved: 01-04-2016 08-10-2015 Chronic Diseases of mouth; excluding dental (2 sources) Finding of color of lips; Translations: [Diseases of lips] Onset: 01-10-2025 01-10-2025 Episodic Disorders of lipid metabolism (20 sources) Hyperlipidemia; Translations: [Hyperlipidemia, unspecified] Onset: 07-04-2005 Resolved: 01-04-2016 01-04-2016 Chronic Diverticulosis and diverticulitis (20 sources) Diverticulosis of colon; Translations: [Diverticulosis of large intestine without perforation or abscess without bleeding] Onset: 07-04-2005 01-03-2006 Chronic Esophageal disorders (20 sources) Gastroesophageal reflux disease without esophagitis; Translations: [Gastro-esophageal reflux disease without esophagitis] Onset: 10-22-2020 10-22-2020 Chronic Essential hypertension (20 sources) Essential hypertension; Translations: [Essential (primary) hypertension] Onset: 01-03-2006 09-06-2021 Chronic Headache; including migraine (1 source) Headache; Translations: [Headache, unspecified headache type] Episodic Heart valve disorders (1 source) Heart murmur; Translations: [Cardiac murmur, unspecified] 06-14-2024 Episodic Immunizations and screening for infectious disease (1 source) Suspected disease caused by 2019-nCoV; Translations: [Suspected COVID-19 virus infection] Episodic Joint disorders and dislocations; trauma-related (20 sources) Joint derangement; Translations: [Other internal derangements of unspecified knee] Onset: 04-28-2009 04-28-2009 Chronic Mood disorders (1 source) Mood disorders; Translations: [Anxiety and depression] Onset: 01-10-2025 Nausea and vomiting (7 sources) Nausea; Translations: [Nausea] Episodic Occlusion or stenosis of precerebral arteries (2 sources) Carotid artery stenosis; Translations: [Occlusion and stenosis of unspecified carotid artery] Chronic Open wounds of extremities (1 source) Open wound of left elbow region; Translations: [Unspecified open wound of left elbow, initial encounter] 02-22-2024 Episodic Other aftercare (1 source) Post-discharge follow-up; Translations: [Encounter for follow-up examination after completed treatment for conditions other than malignant neoplasm] Episodic Other circulatory disease (2 sources) Air trapping; Translations: [Other specified symptoms and signs involving the circulatory and respiratory systems] 06-14-2024 Episodic Other connective tissue disease (2 sources) Pain of right thigh; Translations: [Pain in right thigh] 04-10-2023 Episodic Other connective tissue disease (3 sources) Cramp; Translations: [Cramp and spasm] 01-10-2025 Episodic Other connective tissue disease (1 source) Cramp and spasm; Translations: [Muscle cramps] Onset: 01-10-2025 Episodic Other lower respiratory disease (4 sources) Angiotensin-converting -enzyme inhibitor adverse reaction; Translations: [Cough due to angiotensin-converting enzyme inhibitor] 03-17-2022 Episodic Other lower respiratory disease (3 sources) Cough; Translations: [Acute cough] 06-15-2022 Episodic Other non-traumatic joint disorders (2 sources) Tenderness of hip joint; Translations: [Pain in right hip] 04-13-2023 Episodic Other non-traumatic joint disorders (2 sources) Instability of joint of right ankle; Translations: [Other instability, right ankle] 04-10-2023 Episodic Other nutritional; endocrine; and metabolic disorders (3 sources) Hypomagnesemia; Translations: [Hypomagnesemia] 01-13-2025 Chronic Other nutritional; endocrine; and metabolic disorders (1 source) Hypomagnesemia; Translations: [Hypomagnesemia] Onset: 03-07-2025 Chronic Other upper respiratory infections (1 source) Chronic sinusitis; Translations: [Chronic sinusitis, unspecified] Chronic Residual codes; unclassified (3 sources) Insomnia; Translations: [Insomnia, unspecified] 01-10-2025 Episodic Residual codes; unclassified (1 source) Insomnia, unspecified; Translations: [Insomnia, unspecified type] Onset: 03-07-2025 Episodic Thyroid disorders (20 sources) Hypothyroidism; Translations: [Hypothyroidism, unspecified] Onset: 01-03-2006 08-10-2015 Chronic Unclassified (1 source) Acute cough; Translations: [Acute cough] Onset: 01-22-2018 Past or Other Problems Problem Classification Problem Date Documented Date Episodic/Chronic Allergic reactions (20 sources) Solar degeneration; 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] Onset: 04-17-2013 Resolved: 02-16-2015 02-16-2015 Episodic Hemorrhoids (20 sources) Internal hemorrhoids; Translations: [Other hemorrhoids] Onset: 07-04-2005 01-03-2006 Episodic Other aftercare (1 source) Other fdc (current) drug therapy; Translations: [Medication management] Onset: 08-03-2024 Episodic Other and unspecified benign neoplasm (20 sources) Senile angioma; Translations: [Hemangioma of skin and subcutaneous tissue] Onset: 04-17-2013 Resolved: 02-16-2015 02-16-2015 Episodic Other circulatory disease (20 sources) Spider nevus; Translations: [Nevus, non-neoplastic] Onset: 04-17-2013 Resolved: 02-16-2015 02-16-2015 Episodic Other circulatory disease (20 sources) Telangiectasia disorder; Translations: [Nevus, non-neoplastic] Onset: 04-17-2013 Resolved: 02-16-2015 02-16-2015 Episodic Other lower respiratory disease (1 source) Cough; Translations: [Cough] Onset: 10-27-2017 Episodic Other lower respiratory disease (20 sources) Cough; Translations: [Cough] Onset: 07-04-2005 Resolved: 02-16-2015 01-22-2018 Episodic Other lower respiratory disease (7 sources) Chronic cough; Translations: [Chronic cough] Onset: 01-22-2018 Episodic Other nutritional; endocrine; and metabolic disorders (20 sources) Obesity; Translations: [Obesity, unspecified] Onset: 07-04-2005 Resolved: 02-16-2015 02-16-2015 Chronic Other screening for suspected conditions (not mental disorders or infectious disease) (9 sources) Patient encounter status; Translations: [Encounter for screening mammogram for malignant neoplasm of breast] Onset: 09-19-2024 Episodic Other skin disorders (20 sources) Solar lentigo; Translations: [Other melanin hyperpigmentation] Onset: 04-17-2013 Resolved: 02-16-2015 02-16-2015 Episodic Other skin disorders (20 sources) Skin tag; Translations: [Other hypertrophic disorders of the skin] Onset: 04-17-2013 Resolved: 02-16-2015 02-16-2015 Episodic Other upper respiratory infections (20 sources) Posterior rhinorrhea; Translations: [Postnasal drip] Onset: 10-31-2017 10-31-2017 Episodic Skin and subcutaneous tissue infections (20 sources) Abscess of shoulder; Translations: [Cutaneous abscess of limb, unspecified] Onset: 02-01-2016 02-01-2016 Episodic Results Test Name Value Interpretation Reference Range Facility [facility] 03-07-2025 CNOV Office Visit (INTMWS ) SHANNON LEIJA ([id number]) 1940 F NFR Date Time Provider Department 03/07/25 7:00 AM OLDERGRISELDA During your visit today, we recorded the following information about you: Pulse Respiration Blood pressure Weight 84/minute 16/minute 122/60 71.2 kg OlderGriselda APRN.PANEL INSTRUMENT REPAIRER 03/07/2025 8:35 AM Signed CC: Patient presents with: Recheck: 4 week follow up HPI Shannon Leija is a 84 year old female who presents today for follow up on leg cramps and insomnia. Recording using [employer] software for draft documentation of the visit was discussed with the patient/authorized customer care representative; all questions welcomed and answered. Patient/authorized customer care representative agreed to proceed Muscle Cramps: - was found to be low on magnesium so PPI was stopped, switched to famotidine before bed and started on magnesium supplment. - Taking magnesium supplements twice daily with supper with level improving. Cramps improving Cough: - cough returned shortly after stopping the pantoprazole but improved after restarting pantoprazole last week. - Previously taking famotidine at bedtime. Sleep Disturbance: - Sleep quality improved with reduction in muscle cramps. - Taking trazodone, which is helping with sleep. Lifestyle: - Shannon exercises at [employer] six days a week. - Enjoys attending shows at [employer]. REVIEW OF SYSTEMS General: no fevers, no chills, no night sweats, no recurrent infections, no change in appetite, no change in energy, and no significant changes in weight Respiratory: no cough, no wheezing, no shortness of breath, no hemoptysis Cardiovascular: no chest pain, no chest pressure, no palpitations, and no swelling PAST MEDICAL HISTORY Diagnosis Date BENIGN HYPERTENSION 07/04/2005 Calcaneal spur of foot, left Cough 07/04/2005 chronic DIABETES MELLITUS TYPE II-UNCOMPL 07/04/2005 DIVERTICULOSIS OF COLON W/O BLEED 07/04/2005 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 PAST SURGICAL HISTORY Procedure Laterality Date APPENDECTOMY 05/1980 BONE DENSITY MULTIPLE SITES 11/2000 BRONCHOSCOPY COLONOSCOPY FLX DX W/COLLJ SPEC WHEN PFRMD 11/28/2003 Colonoscopy COLONOSCOPY FLX DX W/COLLJ SPEC WHEN PFRMD 03/13/14 Colonoscopy PAST SURGICAL HISTORY OF 02/1975 right thyroid lobectomy PAST SURGICAL HISTORY OF Left thigh cellulitis, had surgery to repair, states happened aprox 36 years ago. TOTAL ABDOMINAL HYSTERECT W/WO RMVL TUBE OVARY 05/1980 Hysterectomy, BETTY, partial salpingectomy ALLERGIES Lisinopril and Sulfa (Sulfonamide Antibiotics) MEDICATIONS magnesium chloride [address] tablet Take 2 tablets by mouth once daily. magnesium chloride [address] tablet Take 2 tablets by mouth once daily. ipratropium bromide (ATROVENT) 42 mcg (0.06 %) nasal spray USE 2 SPRAYS NASALLY 4 TIMES DAILY Telmisartan 20 mg tablet Take 1 tablet by mouth once daily. traZODone (DESYREL) 50 mg tablet Take 1 tablet by mouth daily at bedtime. amLODIPine (NORVASC) 2.5 mg tablet Take 1 tablet by mouth once daily. glimepiride (AMARYL) 2 mg tablet Take 1 tablet by mouth two times a day with meals. metFORMIN (GLUCOPHAGE) 1,000 mg tablet Take 1 tablet by mouth two times a day. simvastatin (ZOCOR) 10 mg tablet Take 1 tablet by mouth once daily. pantoprazole DR (PROTONIX) 20 mg tablet Take 1 tablet by mouth once daily. fluticasone-salmeterol (WIXELA INHUB) 250-50 mcg/dose inhaler Inhale 1 Puff as instructed two times a day. levothyroxine (SYNTHROID) 125 mcg tablet Take 1 tablet by mouth once daily. Except take 1/2 tablet on Sundays SITagliptin phosphate (JANUVIA) 100 mg tablet Take 1 tablet by mouth once daily. blood sugar diagnostic (ONETOUCH ULTRA TEST) test strip TEST 1 TIME DAILY blood sugar diagnostic (BLOOD GLUCOSE TEST) test strip Test blood sugar(s) 1 times daily. Dx: Type 2 DM - Controlled E11.9 Insulin: No fexofenadine (CECY ALLERGY) 60 mg tablet Take 1 tablet by mouth twice daily. COMPOUNDED PRESCRIPTION One touch ultra 2, test strips Test 3 times daily. Dx: E11.9 Insulin: No COMPOUNDED PRESCRIPTION Easy Touch Health Pro test strips. To be tested 2 times a day Aspirin 81 mg Tab Take 81 mg by mouth. Ykdfnwcqejcfq-Tjbzyncd-Cytf in (CENTRUM SILVER) tab Take 1 tablet by mouth once daily. FAMILY HISTORY Adopted: Yes Social History Tobacco Use Smoking status: Never Smokeless tobacco: Never Tobacco comments: Parents did not smoke in childhood home. Spouse smoked in home for about 10 years. Vaping Use Vaping status: Never Used Sub (more content not included)... Normal [facility] Magnesium SerPl-mCncon 02-21 Magnesium [Mass/Vol] 1.7 mg/dL Normal 1.7-2.3 [facility] Comment on above: Order Comment: Speci men Type: BLOOD SPECIMEN Ordering Facility: [facility] Address: [address] [place] [address] Performed By: #### 1 9123-9 #### [facility] CLIA [id number] [address] [place] [address] [facility] CNOVon 02-07-2025 CNOV Office Visit (INTMWS ) SHANNON LEIJA ([id number]) 1940 F NFR Date Time Provider Department 02/07/25 7:00 AM GRISELDA LEMA INTMWS During your visit today, we recorded the following information about you: Pulse Respiration Blood pressure Weight 74/minute 16/minute 136/64 72.1 kg Griselda Lema APRN.PANEL INSTRUMENT REPAIRER 02/07/2025 7:44 AM Signed CC: Patient presents with: Recheck: 4 week follow up HPI Shannonneel Leija is a 84 year old female who presents today for follow up on insomnia which she was started on trazadone for and muscle cramps. Was found to have low magnesium so started on a magnesium supplement. Recording using FiveR[employer] software for draft documentation of the visit was discussed with the patient/authorized customer care representative; all questions welcomed and answered. Patient/authorized customer care representative agreed to proceed Hypomagnesemia: - Magnesium levels have decreased from 1.5 to 1.4 even with the supplement. - Taking magnesium supplement daily after lunch. - Denies diarrhea or recent illnesses. Muscle Cramps: - Persistent muscle cramps disrupting sleep. - Currently taking Trazodone for sleep. GERD: - Currently managed with pantoprazole, taken 30 minutes before breakfast. - Denies heartburn, abdominal pain, nausea, or chest pain. - Cough partially caused by GERD well-controlled at this time with PPI and with inhaler from pulmonary department. - No history of taking famotidine. REVIEW OF SYSTEMS General: no fevers, no chills, no night sweats, no recurrent infections, no change in appetite, no change in energy, and no significant changes in weight Respiratory: no cough, no wheezing, no shortness of breath, no hemoptysis Cardiovascular: no chest pain, no chest pressure, no palpitations, and no swelling PAST MEDICAL HISTORY Diagnosis Date BENIGN HYPERTENSION 07/04/2005 Calcaneal spur of foot, left Cough 07/04/2005 chronic DIABETES MELLITUS TYPE II-UNCOMPL 07/04/2005 DIVERTICULOSIS OF COLON W/O BLEED 07/04/2005 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 PAST SURGICAL HISTORY Procedure Laterality Date APPENDECTOMY 05/1980 BONE DENSITY MULTIPLE SITES 11/2000 BRONCHOSCOPY COLONOSCOPY FLX DX W/COLLJ SPEC WHEN PFRMD 11/28/2003 Colonoscopy COLONOSCOPY FLX DX W/COLLJ SPEC WHEN PFRMD 03/13/14 Colonoscopy PAST SURGICAL HISTORY OF 02/1975 right thyroid lobectomy PAST SURGICAL HISTORY OF Left thigh cellulitis, had surgery to repair, states happened aprox 36 years ago. TOTAL ABDOMINAL HYSTERECT W/WO RMVL TUBE OVARY 05/1980 Hysterectomy, BETTY, partial salpingectomy ALLERGIES Lisinopril and Sulfa (Sulfonamide Antibiotics) MEDICATIONS Telmisartan 20 mg tablet Take 1 tablet by mouth once daily. traZODone (DESYREL) 50 mg tablet Take 1 tablet by mouth daily at bedtime. traZODone (DESYREL) 50 mg tablet Take 1 tablet by mouth daily at bedtime. famotidine (PEPCID) 40 mg tablet Take 1 tablet by mouth daily at bedtime. magnesium chloride [address] tablet Take 2 tablets by mouth once daily. amLODIPine (NORVASC) 2.5 mg tablet Take 1 tablet by mouth once daily. glimepiride (AMARYL) 2 mg tablet Take 1 tablet by mouth two times a day with meals. metFORMIN (GLUCOPHAGE) 1,000 mg tablet Take 1 tablet by mouth two times a day. simvastatin (ZOCOR) 10 mg tablet Take 1 tablet by mouth once daily. ipratropium bromide (ATROVENT) 42 mcg (0.06 %) nasal spray Use 2 sprays in the nose four times daily. pantoprazole DR (PROTONIX) 20 mg tablet Take 1 tablet by mouth once daily. fluticasone-salmeterol (WIXELA INHUB) 250-50 mcg/dose inhaler Inhale 1 Puff as instructed two times a day. levothyroxine (SYNTHROID) 125 mcg tablet Take 1 tablet by mouth once daily. Except take 1/2 tablet on Sundays SITagliptin phosphate (JANUVIA) 100 mg tablet Take 1 tablet by mouth once daily. blood sugar diagnostic (ONETOUCH ULTRA TEST) test strip TEST 1 TIME DAILY blood sugar diagnostic (BLOOD GLUCOSE TEST) test strip Test blood sugar(s) 1 times daily. Dx: Type 2 DM - Controlled E11.9 Insulin: No fexofenadine (CECY ALLERGY) 60 mg tablet Take 1 tablet by mouth twice daily. COMPOUNDED PRESCRIPTION One touch ultra 2, test strips Test 3 times daily. Dx: E11.9 Insulin: No COMPOUNDED PRESCRIPTION Easy Touch Health Pro test strips. To be tested 2 times a day Aspirin 81 mg Tab Take 81 mg by mouth. Gfvounvkyhbpd-Fxzcsxnd-Ovrq in (CENTRUM SILVER) tab Take 1 tablet by mouth once daily. FAMILY HISTORY Adopted: Yes Social History Tobacco Use Smoking status: Never Smokeless tobacco: Never Tobacco comments: (more content not included)... [facility] (INTMWS) SHANNON LEIJA ([id number]) 1940 F NFR Date Time Provider Department 02/04/25 DARIN ALONZO INTMWS During your visit today, we recorded the following information about you: Luisana Cleveland 02/04/2025 12:35 PM Signed Patient called said she continues to have leg cramps even with taking the magnesium chloride 64mg Patient asking if a higher dose should be called in? She has 7 pills left Can be reached at [phone] Please advise Griselda Lema APRN.PANEL INSTRUMENT REPAIRER 02/07/2025 7:04 AM Signed Will discuss further at upcoming appointment Griselda Lema APRN.PANEL INSTRUMENT REPAIRER Allergies As of Date: 02/04/2025 Noted Allergy Reaction LISINOPRIL 05/09/2022 3 - Cough SULFA (SULFONAMIDE ANTIBIOTICS) 07/04/2005 2 - Rash Comments: Childhood reaction. Date Reviewed: 01/10/2025 Reviewed by: Griselda Lema APRN.PANEL INSTRUMENT REPAIRER - Fully Assessed Reason for Visit: Patient Question [2135] Cmt: Leg cramps / asking if a higher dose should me called in? Prescriptions as of 02/07/2025 - magnesium chloride [address] tablet Take 1 tablet by mouth once daily. - amLODIPine (NORVASC) 2.5 mg tablet Take 1 tablet by mouth once daily. - glimepiride (AMARYL) 2 mg tablet Take 1 tablet by mouth two times a day with meals. - metFORMIN (GLUCOPHAGE) 1,000 mg tablet Take 1 tablet by mouth two times a day. - simvastatin (ZOCOR) 10 mg tablet Take 1 tablet by mouth once daily. - traZODone (DESYREL) 50 mg tablet Take 1 tablet by mouth daily at bedtime. - ipratropium bromide (ATROVENT) 42 mcg (0.06 %) nasal spray Use 2 sprays in the nose four times daily. - pantoprazole DR (PROTONIX) 20 mg tablet Take 1 tablet by mouth once daily. - fluticasone-salmeterol (WIXELA INHUB) 250-50 mcg/dose inhaler Inhale 1 Puff as instructed two times a day. - levothyroxine (SYNTHROID) 125 mcg tablet Take 1 tablet by mouth once daily. Except take 1/2 tablet on Sundays - SITagliptin phosphate (JANUVIA) 100 mg tablet Take 1 tablet by mouth once daily. - blood sugar diagnostic (ONETOUCH ULTRA TEST) test strip TEST 1 TIME DAILY - Telmisartan 20 mg tablet TAKE 1 TABLET BY MOUTH ONCE DAILY - blood sugar diagnostic (BLOOD GLUCOSE TEST) test strip Test blood sugar(s) 1 times daily. Dx: Type 2 DM - Controlled E11.9 Insulin: No - fexofenadine (CECY ALLERGY) 60 mg tablet Take 1 tablet by mouth twice daily. - COMPOUNDED PRESCRIPTION One touch ultra 2, test strips Test 3 times daily. Dx: E11.9 Insulin: No - COMPOUNDED PRESCRIPTION Easy Touch Health Pro test strips. To be tested 2 times a day - Aspirin 81 mg Tab Take 81 mg by mouth. - Rjjhrunrplzif-Mggpvquo-Jvmd in (CENTRUM SILVER) tab Take 1 tablet by mouth once daily. Problem List As Of Date 02/04/2025 Noted Resolved OVERWEIGHT [E66.9] 07/04/2005 02/16/2015 DIABETES MELLITUS TYPE II-UNCOMPL [E11.9] 07/04/2005 02/16/2015 Other and unspecified hyperlipidemia [E78.5] 07/04/2005 01/04/2016 Cough [R05.9] 07/04/2005 02/16/2015 DIVERTICULOSIS OF COLON W/O BLEED [K57.30] 07/04/2005 INT HEMORRHOID W/O COMPL [K64.8] 07/04/2005 Essential hypertension [I10] 01/03/2006 Hypothyroidism [E03.9] 01/03/2006 Other Joint Derangement, not Elsewhere Classifi*04/28/2009 Follicular bronchiolitis [J44.89] 10/28/2010 Steele angioma [D18.01] 04/17/2013 02/16/2015 Capillary angioma [I78.1] 04/17/2013 02/16/2015 Solar lentigo [L81.4] 04/17/2013 02/16/2015 Actinic skin damage [L57.8] 04/17/2013 02/16/2015 Telangiectasia [I78.1] 04/17/2013 02/16/2015 Cutaneous skin tags [L91.8] 04/17/2013 02/16/2015 DM (diabetes mellitus) (HCC) [E11.9] 08/11/2014 01/04/2016 Diabetes mellitus type 2, controlled, without c*08/10/2015 Hyperlipidemia [E78.5] 01/04/2016 Shoulder abscess [L02.419] 02/01/2016 Abscess [L02.91] 02/10/2016 Post-nasal drip [R09.82] 10/31/2017 Cough [R05.9] 07/04/2005 Gastroesophageal reflux disease without esophag*10/22/2020 Encounter Status:Closed by GRISELDA LEMA on 02/07/25 Normal [facility] Magnesium SerPl-mCncon 01-29 Magnesium [Mass/Vol] 1.4 mg/dL Low 1.7-2.3 [facility] Comment on above: Order Comment: Speci men Type: BLOOD SPECIMEN Ordering Facility: [facility] Address: [address] [place] [address] Performed By: #### 5 8410-2 #### [facility] CLIA [id number] [address] [place] [address] OF [facility] CNOVon 01-10-2025 CNOV Office Visit (INTMWS ) SHANNON LEIJA ([id number]) 1940 F NFR Date Time Provider Department 01/10/25 7:20 AM GRISELDA LEMA INTMWS During your visit today, we recorded the following information about you: Pulse Respiration Blood pressure Weight 78/minute 16/minute 130/68 71.7 kg Older, NAREN Villalobos.OLESYA 01/10/2025 7:59 AM Signed CC: Patient presents with: Recheck: 3 month follow up HPI Shannon Leija is a 84 year old female who presents today for routine follow up. Recording using ambient GoHome software for draft documentation of the visit was discussed with the patient/authorized customer care representative; all questions welcomed and answered. Patient/authorized customer care representative agreed to proceed Diabetes Mellitus: - Fasting blood glucose readings: 150-160 mg/dL. - No increased thirst, hunger, or urination. - No episodes of hypoglycemia. - Current medications: Januvia, metformin, glimepiride BID with food. Insomnia: - Difficulty staying asleep, waking every couple of hours. - Takes levothyroxine and pantoprazole during nighttime awakenings. - Previously took trazodone for sleep, discontinued a few years ago. - Denies suicidal ideation. - No alcohol or drug use. - Bedtime routine: turns off TV at 20:00, reads until 20:30-21:00 before sleeping. - family has commented on her anxiety and depression related to grief of losing her a year ago and she agrees it may be time to start something for this Leg and Hand Cramps: - Occasional cramps in legs and hands, sometimes waking Shannon at night. - No regular stretching post-workout. - works out every day and started a new additional exercise program for balance - reports drinking plenty of water. GERD: - Currently taking pantoprazole; previously discontinued but resumed due to worsening cough. - No heartburn, dysphagia, or upper abdominal pain. - Recently started on Atrovent nasal spray by Pulmonology, which improved symptoms of her chronic cough but instructed to continue her pantoprazole as well. Hypertension and HLD: - Home BP readings: 110-120 mmHg systolic. - No dizziness, fatigue, palpitations, chest pain, dyspnea, edema, or headaches. - Exercises at [employer] 6 days a week: strength training and cardio on //, cardio on //Mon. - Participating in a 7-week balance class, Stepping [employer], to prevent falls. - Enjoys dining out and cooking; maintains a healthy diet. Hypothyroidism: - Current medication: levothyroxine, 1 tablet daily except half on Mondays. - No weight changes or energy level fluctuations. 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 PAST SURGICAL HISTORY Procedure Laterality Date APPENDECTOMY 05/1980 BONE DENSITY MULTIPLE SITES 11/2000 BRONCHOSCOPY COLONOSCOPY FLX DX W/COLLJ SPEC WHEN PFRMD 11/28/2003 Colonoscopy COLONOSCOPY FLX DX W/COLLJ SPEC WHEN PFRMD 03/13/14 Colonoscopy PAST SURGICAL HISTORY OF 02/1975 right thyroid lobectomy PAST SURGICAL HISTORY OF Left thigh cellulitis, had surgery to repair, states happened aprox 36 years ago. TOTAL ABDOMINAL HYSTERECT W/WO RMVL TUBE OVARY 05/1980 Hysterectomy, BETTY, partial salpingectomy ALLERGIES Lisinopril and Sulfa (Sulfonamide Antibiotics) MEDICATIONS amLODIPine (NORVASC) 2.5 mg tablet Take 1 tablet by mouth once daily. glimepiride (AMARYL) 2 mg tablet Take 1 tablet by mouth two times a day with meals. metFORMIN (GLUCOPHAGE) 1,000 mg tablet Take 1 tablet by mouth two times a day. simvastatin (ZOCOR) 10 mg tablet Take 1 tablet by mouth once daily. traZODone (DESYREL) 50 mg tablet Take 1 tablet by mouth daily at bedtime. ipratropium bromide (ATROVENT) 42 mcg (0.06 %) nasal spray Use 2 sprays in the nose four times daily. pantoprazole DR (PROTONIX) 20 mg tablet Take 1 tablet by mouth once daily. fluticasone-salmeterol (WIXELA INHUB) 250-50 mcg/dose inhaler Inhale 1 Puff as instructed two times a day. levothyroxine (SYNTHROID) 125 mcg tablet Take 1 tablet by mouth once daily. Except take 1/2 tablet on Sundays SITagliptin phosphate (JANUVIA) 100 mg tablet Take 1 tablet by mouth once daily. blood sugar diagnostic (ONETOUCH ULTRA TEST) test strip TEST 1 TIME DAILY Telmisartan 20 mg tablet TAKE 1 TABLET BY MOUTH ONCE DAILY blood sugar diagnostic (BLOOD GLUCOSE TEST) test strip Test blood (more content not included)... Normal [facility] Magnesium SerPl-mCncon 01-10 Magnesium [Mass/Vol] 1.5 mg/dL Low 1.7-2.3 [facility] Comment on above: Order Comment: Speci men Type: BLOOD SPECIMENOrdering Facility: [facility] Address: [address] [place] [address] Performed By: #### 1 9123-9 ####[facility] [id number] [place] [address] [place] Basic metabolic 2000 panelon 01-03-2025 Anion gap [Moles/Vol] 11 mmol/L Normal 8-15 [facility] Comment on above: Order Comment: Speci men Type: BLOOD SPECIMENOrdering Facility: [facility] Address: [address] [place] [address] Performed By: #### 3 016-3, 97790-1 ####[facility] [id number] [place] [address] [place] Calcium [Mass/Vol] 9.2 mg/dL Normal 8.5-10.2 [facility] Comment on above: Order Comment: Speci men Type: BLOOD SPECIMENOrdering Facility: [facility] Address: [address] [place] [address] Performed By: #### 3 016-3, 08340-6 ####[facility] [id number] [place] [id number] [place] Chloride [Moles/Vol] 98 mmol/L Normal 98-107 [facility] Comment on above: Order Comment: Speci men Type: BLOOD SPECIMENOrdering Facility: [facility] Address: [address] [place] [address] Performed By: #### 3 016-3, ####[facility] [id number] [place] [address] [place] CO2 [Moles/Vol] 26 mmol/L Normal 22-30 [facility] Comment on above: Order Comment: Speci men Type: BLOOD SPECIMENOrdering Facility: [facility] Address: [address] [place] [address] Performed By: #### 3 0163, ####[facility] [id number] [address] [place] Creatinine [Mass/Vol] 0.77 mg/dL Normal 0.58-0.96 [facility] Comment on above: Order Comment: Speci men Type: BLOOD SPECIMENOrdering Facility: [facility] Address: [address] [place] [address] Performed By: #### 3 016-3, ####[facility] [id number] [address] OF [facility] Creatinine and Glomerular filtration rate.predicted panel (S/P/Bld) 77 mL/min/1.73m??? Normal >=60 [facility] Comment on above: Order Comment: Speci men Type: BLOOD SPECIMENOrdering Facility: [facility] Address: [address] [place] [address] Result Comment: Shari mated Glomerular Filtration Rate (eGFR) is calculated using the 2020 CKD-EPI creatinine equation. This equation utilizes serum creatinine, sex, and age as parameters. The creatinine assay has traceable calibration to isotope dilution-mass spectrometry. Refer to KDIGO guidelines for clinical interpretation. In patients with unstable renal function, e.g. those with acute kidney injury, the eGFR may not accurately reflect actual GFR. Performed By: #### 3 016-3, 91873-7 ####[facility] [id number] [place] [address] [place] Glucose [Mass/Vol] 129 mg/dL High 74-99 [facility] Comment on above: Order Comment: Speci men Type: BLOOD SPECIMENOrdering Facility: [facility] Address: [address] [place] [address] Result Comment: The [place] Diabetes [employer] (ADA) provides guidance for cutoff values for fasting glucose and random glucose. The ADA defines fasting as no caloric intake for at least 8 hours. Fasting plasma glucose results between 100 to 125 mg/dL indicate increased risk for diabetes (prediabetes). Fasting plasma glucose results greater than or equal to 126 mg/dL meet the criteria for diagnosis of diabetes. In the absence of unequivocal hyperglycemia, results should be confirmed by repeat testing. In a patient with classic symptoms of hyperglycemia or hyperglycemic crisis, random plasma glucose results greater than or equal to 200 mg/dL meet the criteria for diagnosis of diabetes. Reference: Standards of Medical Care in Diabetes 2016, [place] Diabetes Association. Diabetes Care. 2016.39(Suppl 1). Performed By: #### 3 016-3, 98207-6 ####[facility] [id number] [place] [address] [place] Potassium [Moles/Vol] 4.3 mmol/L Normal 3.7-5.1 [facility] Comment on above: Order Comment: Speci men Type: BLOOD SPECIMENOrdering Facility: [facility] Address: [address] [place] [address] Performed By: #### 3 016-3, 26128-0 ####[facility] [id number] [facility] [place] [address] [place] Sodium [Moles/Vol] 135 mmol/L Low 136-144 [facility] Comment on above: Order Comment: Speci men Type: BLOOD SPECIMENOrdering Facility: [facility] Address: [address] [place] [address] Performed By: #### 3 016-3, 83163-3 ####[facility] [id number] [place] [address] [place] Urea nitrogen [Mass/Vol] 18 mg/dL Normal 7-21 [facility] Comment on above: Order Comment: Speci men Type: BLOOD SPECIMENOrdering Facility: [facility] Address: [address] [place] [address] Performed By: #### 3 016-3, 45670-0 ####[facility] [id number] [place] [address] [place] CBC panel Auto (Bld)on 01-03 Erythrocyte distribution width (RBC) [Ratio] 15.0 % Normal 11.5-15.0 [facility] Comment on above: Order Comment: Speci men Type: BLOOD SPECIMEN [facility] Address: [address] [place] [address] Performed By: #### 5 8410-2 #### [facility] CLIA [id number] [address] [place] [address] [place] Hematocrit (Bld) [Volume fraction] 36.8 % Normal 36.0-46.0 [facility] Comment on above: Order Comment: Speci men Type: BLOOD SPECIMEN [facility] Address: [address] [place] [address] Performed By: #### 5 8410-2 #### [facility] CLIA [id number] [address] [place] [address] [place] Hemoglobin (Bld) [Mass/Vol] 11.8 g/dL Normal 11.5-15.5 [facility] Comment on above: Order Comment: Speci men Type: BLOOD SPECIMEN [facility] Address: [address] [place] [address] Performed By: #### 5 8410-2 #### [facility] CLIA [id number] [address] [place] [address] [place] MCH (RBC) [Entitic mass] 28.0 pg Normal 26.0-34.0 [facility] Comment on above: Order Comment: Speci men Type: BLOOD SPECIMEN [facility] Address: [address] [place] [address] Performed By: #### 5 8410-2 #### [facility] CLIA [id number] [address] [place] [address] [place] MCHC (RBC) [Mass/Vol] 32.1 g/dL Normal 30.5-36.0 [facility] Comment on above: Order Comment: Speci men Type: BLOOD SPECIMEN [facility] Address: [address] [place] [address] Performed By: #### 5 8410-2 #### [facility] CLIA [id number] [address] [place] [address] [place] MCV (RBC) [Entitic vol] 87.2 fL Normal 80.0-100.0 [facility] Comment on above: Order Comment: Speci men Type: BLOOD SPECIMEN [facility] Address: [address] [place] [address] Performed By: #### 5 8410-2 #### [facility] CLIA [id number] [address] [place] [address] [place] Nucleated RBC (Bld) [#/Vol] 10*3/uL Normal <0.01 [facility] Comment on above: Order Comment: Speci men Type: BLOOD SPECIMEN [facility] Address: [address] [place] [address] Performed By: #### 5 8410-2 #### [facility] CLIA [id number] [address] [place] [address] [place] Platelet mean volume (Bld) [Entitic vol] 10.7 fL Normal 9.0-12.7 [facility] Comment on above: Order Comment: Speci men Type: BLOOD SPECIMEN [facility] Address: [address] [place] [address] Performed By: #### 5 8410-2 #### [facility] CLIA [id number] [address] [place] [address] [place] Platelets (Bld) [#/Vol] 250 10*3/uL Normal 150-400 [facility] Comment on above: Order Comment: Speci men Type: BLOOD SPECIMEN [facility] Address: [address] [place] [address] Performed By: #### 5 8410-2 #### [facility] CLIA [id number] [address] [place] [address] [place] RBC (Bld) [#/Vol] 4.22 10*6/uL Normal 3.90-5.20 [facility] Comment on above: Order Comment: Speci men Type: BLOOD SPECIMEN [facility] Address: [address] [place] [address] Performed By: #### 5 8410-2 #### [facility] CLIA [id number] [address] [place] [address] [place] WBC (Bld) [#/Vol] 6.52 10*3/uL Normal 3.70-11.00 [facility] Comment on above: Order Comment: Speci men Type: BLOOD SPECIMEN [facility] Address: [address] [place] [address] Performed By: #### 5 8410-2 #### [facility] CLIA [id number] [address] [place] [address] [place] HbA1c (Bld)on 01-03-2025 Average glucose Estimated from glycated hemoglobin (Bld) [Mass/Vol] 177 mg/dL Normal [facility] Comment on above: Order Comment: Speci men Type: BLOOD SPECIMENOrdering Facility: [facility] Address: [address] [place] [address] Result Comment: eAG: (Estimated average glucose) is a calculated value from HgbA1c and is customer care representative of the average blood glucose level in the last 2-3 month period. Performed By: #### 5 5454-3 ####[facility] [id number] [place] [address] [place] HbA1c (Bld) [Mass fraction] 7.8 % High 4.3-5.6 [facility] Comment on above: Order Comment: Saba dickerson Type: BLOOD SPECIMENOrdering Facility: [facility] Address: [address] [place] [address] Result Comment: [place] Diabetes Association guidelines indicate that patients with HgbA1c in the range 5.7-6.4% are at increased risk for development of diabetes, and intervention by lifestyle modification may be beneficial. HgbA1c greater or equal to 6.5% is considered diagnostic of diabetes. Performed By: #### 5 5454-3 ####[facility] [id number] [address] [place] TSH SerPl-aCncon 01-03-2025 TSH Qn 0.544 m[IU]/L Normal 0.270-4.200 [facility] Comment on above: Order Comment: Saba dickerson Type: BLOOD SPECIMENOrdering Facility: [facility] Address: [address] [place] [address] Performed By: #### 3 016-3, 15414-1 ####[facility] [id number] [address] [place] CNOVon 12-13-2024 CNOV Office Visit (PULMWS ) SHANNON LEIJA ([id number]) 1940 F NFR Date Time Provider Department 4/4/25 8:00 AM DORIE GILL PULJeanWS During your visit today, we recorded the following information about you: Pulse Respiration Blood pressure Weight 82/minute 17/minute 130/64 70.3 kg Dorie Gill APRN.PANEL INSTRUMENT REPAIRER 12/13/2024 12:40 PM Signed Pulmonary Medicine Patients name: Shannon Leija PCP: Darin Alonzo MD CC: follow-up HPI: Shannon Leija is a 84 year old female never smoker with PMH significant for HTN, DM2, rhinitis with postnasal drip, hypothyroidsim, GERD, HLD, follicular bronchiolitis/BALT. Current inhaled therapy with Wixela. She presents today for follow-up. PILAR 06/2024 with continued chronic cough secondary to GERD, PND and follicular bronchiolitis despite treatment. Previous CT had also showed airtrapping and LABA was offered but declined. Since that visit, her inhaler was increased to Wixela d/t persistent symptoms. She reports some improvement in her symptoms but continues to have random coughing fits. Has PND which she feels like contributes. She uses Flonase but doesn't find it very helpful. Had recently tried to wean Pantoprazole and noted worsening symptoms. Now back on daily dose. Today, patient reports continued cough with occasional phlegm. Denies any other significant respiratory symptoms such as wheezing, chest tightness, or dyspnea. No steroids/antibiotics since her last visit. 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 Allergies: Lisinopril Cough Sulfa (Sulfonamide * Rash Comment:Childhood reaction. Medication List Accurate as of December 10, 2024 5:16 PM. If you have any questions, ask your nurse or doctor. CHANGE how you take these medications traZODone 50 mg tablet Commonly known as: DESYREL TAKE 1 TABLET BY MOUTH DAILY AT BEDTIME What changed: additional instructions CONTINUE taking these medications amLODIPine 2.5 mg tablet Commonly known as: NORVASC TAKE 1 TABLET BY MOUTH ONCE DAILY Aspirin 81 mg Tab * BLOOD GLUCOSE TEST test strip Generic drug: blood sugar diagnostic Test blood sugar(s) 1 times daily. Dx: Type 2 DM - Controlled E11.9 Insulin: No * blood sugar diagnostic test strip Commonly known as: ONETOUCH ULTRA TEST TEST 1 TIME DAILY COMPOUNDED PRESCRIPTION Easy Touch Health Pro test strips. To be tested 2 times a day COMPOUNDED PRESCRIPTION One touch ultra 2, test strips Test 3 times daily. Dx: E11.9 Insulin: No fexofenadine 60 mg tablet Commonly known as: CECY ALLERGY Take 1 tablet by mouth twice daily. fluticasone 50 mcg/actuation nasal spray Commonly known as: FLONASE Use 2 Sprays in each nostril once daily. Rinse mouth after use. for nasal drainage and congestion fluticasone-salmeterol 250-50 mcg/dose inhaler Commonly known as: WIXELA INHUB Inhale 1 Puff as instructed two times a day. glimepiride 2 mg tablet Commonly known as: AMARYL Take 1 tablet by mouth two times a day with meals. levothyroxine 125 mcg tablet Commonly known as: SYNTHROID Take 1 tablet by mouth once daily. Except take 1/2 tablet on Sundays metFORMIN 1,000 mg tablet Commonly known as: GLUCOPHAGE TAKE 1 TABLET BY MOUTH TWICE DAILY Hglcvgjrfuebw-Ilcijrjv-Jwen in Tab Commonly known as: CENTRUM SILVER pantoprazole DR 20 mg tablet Commonly known as: PROTONIX Take 1 tablet by mouth once daily. simvastatin 10 mg tablet Commonly known as: ZOCOR Take 1 tablet by mouth once daily. SITagliptin phosphate 100 mg tablet Commonly known as: JANUVIA Take 1 tablet by mouth once daily. Telmisartan 20 mg tablet TAKE 1 TABLET BY MOUTH ONCE DAILY * This list has 2 medication(s) that are the same as other medications prescribed for you. Read the directions carefully, and ask your doctor or other care provider to review them with you. DATA: I personally reviewed and analyzed all labs, radiographs and available pulmonary function testing PFT: 11/[address] Chest: 11/2023 DATE OF EXAM: Dec 05 2023 8:38AM [facility] 0541 - CT CHEST WO IVCON / PROCEDURE REASON: multiple diagnoses * * * * Physician Interpretation * * * * EXAMINATION: CHEST CT WITHOUT CONTRAST CLINICAL HISTORY: Chronic cough Technique: Spiral CT acquisition of the chest from the thoracic inlet t (more content not included)... Normal [facility] CNPNon 11-18-2024 CNPN Telephone (PULWS) SHANNON LEIJA ([id number]) 1940 F NFR Date Time Provider Department 11/18/24 PAMELA ARANDA PULGISELLA During your visit today, we recorded the following information about you: Charisse Lagos LPN 11/18/2024 8:23 AM Signed Patient calling with one week history of cough and PND. Cough is forceful and occasionally productive of clear mucus, worst overnight. No fever, chills, or myalgias. Some chest discomfort from continued cough and has had episodes of post tussive emesis. She denies wheezing. Asking if she should be treated for exacerbation? LLUVIA Holt Kathleen, LPN 11/18/2024 11:56 AM Signed Patient calling again to let us know that she had been instructed by PCP recently to begin discontinuing her pantoprazole. She is currently using this every 3 days. Advised patient she should return to daily use- could certainly be contributing to her increased coughing. Will make EB aware. Charisse Lagos LPN Allergies As of Date: 11/18/2024 Noted Allergy Reaction LISINOPRIL 05/09/2022 3 - Cough SULFA (SULFONAMIDE ANTIBIOTICS) 07/04/2005 2 - Rash Comments: Childhood reaction. Date Reviewed: 10/11/2024 Reviewed by: Griselda Lema APRN.PANEL INSTRUMENT REPAIRER - Fully Assessed Reason for Visit: Cough [28] Prescriptions as of 11/19/2024 - fluticasone-salmeterol (WIXELA INHUB) 250-50 mcg/dose inhaler Inhale 1 Puff as instructed two times a day. - levothyroxine (SYNTHROID) 125 mcg tablet Take 1 tablet by mouth once daily. Except take 1/2 tablet on Sundays - SITagliptin phosphate (JANUVIA) 100 mg tablet Take 1 tablet by mouth once daily. - blood sugar diagnostic (ONETOUCH ULTRA TEST) test strip TEST 1 TIME DAILY - Telmisartan 20 mg tablet TAKE 1 TABLET BY MOUTH ONCE DAILY - amLODIPine (NORVASC) 2.5 mg tablet TAKE 1 TABLET BY MOUTH ONCE DAILY - glimepiride (AMARYL) 2 mg tablet Take 1 tablet by mouth two times a day with meals. - simvastatin (ZOCOR) 10 mg tablet Take 1 tablet by mouth once daily. - metFORMIN (GLUCOPHAGE) 1,000 mg tablet TAKE 1 TABLET BY MOUTH TWICE DAILY - pantoprazole DR (PROTONIX) 20 mg tablet TAKE 1 TABLET BY MOUTH DAILY BEFORE BREAKFAST ON AN EMPTY STOMACH 1/2 HOUR BEFORE A MEAL - traZODone (DESYREL) 50 mg tablet TAKE 1 TABLET BY MOUTH DAILY AT BEDTIME - fluticasone (FLONASE) 50 mcg/actuation nasal spray Use 2 Sprays in each nostril once daily. Rinse mouth after use. for nasal drainage and congestion - blood sugar diagnostic (BLOOD GLUCOSE TEST) test strip Test blood sugar(s) 1 times daily. Dx: Type 2 DM - Controlled E11.9 Insulin: No - fexofenadine (CECY ALLERGY) 60 mg tablet Take 1 tablet by mouth twice daily. - COMPOUNDED PRESCRIPTION One touch ultra 2, test strips Test 3 times daily. Dx: E11.9 Insulin: No - COMPOUNDED PRESCRIPTION Easy Touch Health Pro test strips. To be tested 2 times a day - Aspirin 81 mg Tab Take 81 mg by mouth. - Wfpvarkflkizb-Mhtbqxlv-Udui in (CENTRUM SILVER) tab Take 1 tablet by mouth once daily. Problem List As Of Date 11/18/2024 Noted Resolved OVERWEIGHT [E66.9] 07/04/2005 02/16/2015 DIABETES MELLITUS TYPE II-UNCOMPL [E11.9] 07/04/2005 02/16/2015 Other and unspecified hyperlipidemia [E78.5] 07/04/2005 01/04/2016 Cough [R05.9] 07/04/2005 02/16/2015 DIVERTICULOSIS OF COLON W/O BLEED [K57.30] 07/04/2005 INT HEMORRHOID W/O COMPL [K64.8] 07/04/2005 Essential hypertension [I10] 01/03/2006 Hypothyroidism [E03.9] 01/03/2006 Other Joint Derangement, not Elsewhere Classifi*04/28/2009 Follicular bronchiolitis [J44.89] 10/28/2010 Steele angioma [D18.01] 04/17/2013 02/16/2015 Capillary angioma [I78.1] 04/17/2013 02/16/2015 Solar lentigo [L81.4] 04/17/2013 02/16/2015 Actinic skin damage [L57.8] 04/17/2013 02/16/2015 Telangiectasia [I78.1] 04/17/2013 02/16/2015 Cutaneous skin tags [L91.8] 04/17/2013 02/16/2015 DM (diabetes mellitus) (HCC) [E11.9] 08/11/2014 01/04/2016 Diabetes mellitus type 2, controlled, without c*08/10/2015 Hyperlipidemia [E78.5] 01/04/2016 Shoulder abscess [L02.419] 02/01/2016 Abscess [L02.91] 02/10/2016 Post-nasal drip [R09.82] 10/31/2017 Cough [R05.9] 07/04/2005 Gastroesophageal reflux disease without esophag*10/22/2020 Encounter Status:Closed by CHARISSE LAGOS on 11/19/24 [facility] PT D/C Summary (1)on [facility] PT D/C Summary (1) [facility] Physical Therapy Health[address] [place] [address] / REHABILITATION SERVICES DISCHARGE SUMMARY MR#: [id number] Acct: [id number] Name: SHANNON LEIJA Rep #: [id number] : 1940 84 From: Tin Perdomo PT, ATC Referring Dr.: DPM Dr. Arsh Wunning Status: REG RCR Insurance: MEDICARE PART A B [facility] Discharge Summary D/C summary: It has been my pleasure to treat SHANNON LEIJA referred by Dr. Arsh Chaney, ADITYA, with the diagnosis of R ankle instability for a total of 9 visit(s). Discharge Date: Please see the following information for a summary of their discharge status. Subjective Subjective: I am ready to be done Overall Improvement % Improvement: 100 Objective Objective/Function: R ankle pain 0/10 Pt is I with HEP R ankle DF ROM= 3 degrees R ankle DF MMT= 33 #F Rx goals achieved Goals Goal 1:: Increase R ankle DF strength x 10#F to aid with stair negotiation Goal Progress: Goal Met Goal 2:: Increase R ankle DF ROM x 10 degrees to aid with restoring a more normalized gait pattern Goal Progress: Goal Met Goal 3:: I with HEP Goal Progress: Goal Met Plan Plan: Discharge to [facility] D/C Information d/c sentence: If there are questions or concerns regarding this patient's physical therapy, please feel free to call me at [phone]. Thank you for the referral of this patient. Sincerely, Tin Perdomo, PT, ATC Balance/Gait/Functional tests Balance/Special Test Scores Lower Extremity Functional Score: 75 Improvement % Improvement: 100 10/22/24 1111 CC: ADITYA Chaney; Dr. Darin Alonzo MD [facility] Signed [facility] 10-17-2024 [facility] Telephone (JOSEWS) SHANNON LEIJA ([id number]) 1940 F NFR Date Time Provider Department 10/17/24 DORIE GILL During your visit today, we recorded the following information about you: Christy Pratt MA 10/17/2024 9:36 AM Signed Patient phones to report she has been using arnuity ellipta inhaler but is still coughing. She is wondering if you wan to change her medication. [facility]. She reports having an appointment on 12/13/24 but is available to come in sooner if indicated by the provider. LORRAINE Burks Kathleen, LPN 10/17/2024 9:46 AM Signed Per [employer] message from 12/13/23- patient may benefit from ICC/LABA therapy, but she wanted to continue ICC alone as she had just switched to Arnuity. PILAR 06/14/24- LABA was offered and patient declined as she had just filled a 90 day supply of Arnuity. Please advise. Charisse Lagos LPN Allergies As of Date: 10/17/2024 Noted Allergy Reaction LISINOPRIL 05/09/2022 3 - Cough SULFA (SULFONAMIDE ANTIBIOTICS) 07/04/2005 2 - Rash Comments: Childhood reaction. Date Reviewed: 10/11/2024 Reviewed by: Griselda Lema APRN.PANEL INSTRUMENT REPAIRER - Fully Assessed Reason for Visit: Patient Update [1234] Cmt: Medication change Order(s):fluticasone-salmet sona (WIXELA INHUB) 250-50 mcg/dose inhalerInhale 1 Puff as instructed two times a day.Disp: 60 EachRfl: 11 Prescriptions as of 10/18/2024 - fluticasone-salmeterol (WIXELA INHUB) 250-50 mcg/dose inhaler Inhale 1 Puff as instructed two times a day. - levothyroxine (SYNTHROID) 125 mcg tablet Take 1 tablet by mouth once daily. Except take 1/2 tablet on Sundays - SITagliptin phosphate (JANUVIA) 100 mg tablet Take 1 tablet by mouth once daily. - blood sugar diagnostic (Software Spectrum CorporationTOUCH ULTRA TEST) test strip TEST 1 TIME DAILY - Telmisartan 20 mg tablet TAKE 1 TABLET BY MOUTH ONCE DAILY - amLODIPine (NORVASC) 2.5 mg tablet TAKE 1 TABLET BY MOUTH ONCE DAILY - glimepiride (AMARYL) 2 mg tablet Take 1 tablet by mouth two times a day with meals. - simvastatin (ZOCOR) 10 mg tablet Take 1 tablet by mouth once daily. - metFORMIN (GLUCOPHAGE) 1,000 mg tablet TAKE 1 TABLET BY MOUTH TWICE DAILY - pantoprazole DR (PROTONIX) 20 mg tablet TAKE 1 TABLET BY MOUTH DAILY BEFORE BREAKFAST ON AN EMPTY STOMACH 1/2 HOUR BEFORE A MEAL - traZODone (DESYREL) 50 mg tablet TAKE 1 TABLET BY MOUTH DAILY AT BEDTIME - fluticasone (FLONASE) 50 mcg/actuation nasal spray Use 2 Sprays in each nostril once daily. Rinse mouth after use. for nasal drainage and congestion - blood sugar diagnostic (BLOOD GLUCOSE TEST) test strip Test blood sugar(s) 1 times daily. Dx: Type 2 DM - Controlled E11.9 Insulin: No - fexofenadine (CECY ALLERGY) 60 mg tablet Take 1 tablet by mouth twice daily. - COMPOUNDED PRESCRIPTION One touch ultra 2, test strips Test 3 times daily. Dx: E11.9 Insulin: No - COMPOUNDED PRESCRIPTION Easy Touch Health Pro test strips. To be tested 2 times a day - Aspirin 81 mg Tab Take 81 mg by mouth. - Bjjetzjfmxuwm-Pxrlyhvr-Gjdm in (CENTRUM SILVER) tab Take 1 tablet by mouth once daily. Problem List As Of Date 10/17/2024 Noted Resolved OVERWEIGHT [E66.9] 07/04/2005 02/16/2015 DIABETES MELLITUS TYPE II-UNCOMPL [E11.9] 07/04/2005 02/16/2015 Other and unspecified hyperlipidemia [E78.5] 07/04/2005 01/04/2016 Cough [R05.9] 07/04/2005 02/16/2015 DIVERTICULOSIS OF COLON W/O BLEED [K57.30] 07/04/2005 INT HEMORRHOID W/O COMPL [K64.8] 07/04/2005 Essential hypertension [I10] 01/03/2006 Hypothyroidism [E03.9] 01/03/2006 Other Joint Derangement, not Elsewhere Classifi*04/28/2009 Follicular bronchiolitis [J44.89] 10/28/2010 Steele angioma [D18.01] 04/17/2013 02/16/2015 Capillary angioma [I78.1] 04/17/2013 02/16/2015 Solar lentigo [L81.4] 04/17/2013 02/16/2015 Actinic skin damage [L57.8] 04/17/2013 02/16/2015 Telangiectasia [I78.1] 04/17/2013 02/16/2015 Cutaneous skin tags [L91.8] 04/17/2013 02/16/2015 DM (diabetes mellitus) (HCC) [E11.9] 08/11/2014 01/04/2016 Diabetes mellitus type 2, controlled, without c*08/10/2015 Hyperlipidemia [E78.5] 01/04/2016 Shoulder abscess [L02.419] 02/01/2016 Abscess [L02.91] 02/10/2016 Post-nasal drip [R09.82] 10/31/2017 Cough [R05.9] 07/04/2005 Gastroesophageal reflux disease without esophag*10/22/2020 Prescriptions ordered this encounter Disp Refills Start End FLUTICASONE 250 MCG-SALMETEROL 50 MC* 60 E* 11 10/18/2024 Route: INHALATION Sig: Inhale 1 Puff as instructed two times a day. Medications Discontinued During This Encounter Prescriptions - fluticasone furoate (ARNUITY ELLIPTA) 100 mcg/actuation inhaler (Discontinued) Inhale 1 Puff as instructed once daily. Encounter Status:Closed by CLICK, DORIE Pena on 10/18/24 [facility] CNOVon 10-11-2024 CNOV Office Visit (INTMWS ) SHANNON LEIJA ([id number]) 1940 F NFR Date Time Provider Department 10/11/24 8:00 AM GRISELDA LEMA INTMWS During your visit today, we recorded the following information about you: Pulse Respiration Blood pressure Weight 84/minute 16/minute 132/68 71.2 kg Griselda Lema APRN.PANEL INSTRUMENT REPAIRER 10/11/2024 9:06 AM Signed CC: Patient presents with: Recheck: 3 month follow up HPI Shannon Leija is a 84 year old female who presents today for diabetic follow up. DIABETES MELLITUS: Ms. Leija denies excessive thirst or increased frequency of urination, chest pain or dyspnea , numbness, tingling or pain in extremities, new or unusual visual symptoms, low sugar/hypoglycemic reactions, weight loss/gain, lightheadedness/dizziness, and bowel changes/loose stools. Follows a diabetic diet most of the time. She is compliant with medication(s) and is tolerating med(s) without any side effects. She reports checking her glucose on a once a day schedule with sugars in the fasting 120s-130s range. Patient's last HgA1C was Hemoglobin A1C (%) Date Value 06/13/2024 7.8 10/18/2021 6.8 07/09/2021 8.0 Hemoglobin A1C (POCT) (%) Date Value 10/11/2024 7.8 03/21/2024 7.7 ) Last Ophthalmology exam was within the past 12 months HTN: Ms. Leija denies headache, chest pain, palpitations, dyspnea, and peripheral edema. Patient denies any side effects of her medication(s) and is compliant with their regimen. She does not check BP's generally. Shannon works out regularly 6-7 times per week with cardio and strength training at the gym. She watches her diet for sodium, low fat and low cholesterol most of the time. Last 3 Encounter BP Readings: Date: BP: 10/11/2024 132/68 2024 118/68 03/21/2024 134/68 Lost her last year and admits to struggling over the holiday season as it was difficult without him. Is starting grief sharing class at [facility] soon and hoping this will help. Has no family near but has neighbors that check on her and a friend group she meets at the gym. 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 PAST SURGICAL HISTORY Procedure Laterality Date APPENDECTOMY 05/1980 BONE DENSITY MULTIPLE SITES 11/2000 BRONCHOSCOPY COLONOSCOPY FLX DX W/COLLJ SPEC WHEN PFRMD 11/28/2003 Colonoscopy COLONOSCOPY FLX DX W/COLLJ SPEC WHEN PFRMD 03/13/14 Colonoscopy PAST SURGICAL HISTORY OF 02/1975 right thyroid lobectomy PAST SURGICAL HISTORY OF Left thigh cellulitis, had surgery to repair, states happened aprox 36 years ago. TOTAL ABDOMINAL HYSTERECT W/WO RMVL TUBE OVARY 05/1980 Hysterectomy, BETTY, partial salpingectomy ALLERGIES Lisinopril and Sulfa (Sulfonamide Antibiotics) MEDICATIONS SITagliptin phosphate (JANUVIA) 100 mg tablet Take 1 tablet by mouth once daily. glimepiride (AMARYL) 2 mg tablet Take 1 tablet by mouth two times a day with meals. metFORMIN (GLUCOPHAGE) 1,000 mg tablet TAKE 1 TABLET BY MOUTH TWICE DAILY levothyroxine (SYNTHROID) 125 mcg tablet Take 1 tablet by mouth once daily. Except take 1/2 tablet on Sundays blood sugar diagnostic (ONETOUCH ULTRA TEST) test strip TEST 1 TIME DAILY Telmisartan 20 mg tablet TAKE 1 TABLET BY MOUTH ONCE DAILY amLODIPine (NORVASC) 2.5 mg tablet TAKE 1 TABLET BY MOUTH ONCE DAILY simvastatin (ZOCOR) 10 mg tablet Take 1 tablet by mouth once daily. fluticasone furoate (ARNUITY ELLIPTA) 100 mcg/actuation inhaler Inhale 1 Puff as instructed once daily. pantoprazole DR (PROTONIX) 20 mg tablet TAKE 1 TABLET BY MOUTH DAILY BEFORE BREAKFAST ON AN EMPTY STOMACH 1/2 HOUR BEFORE A MEAL traZODone (DESYREL) 50 mg tablet TAKE 1 TABLET BY MOUTH DAILY AT BEDTIME (Patient taking differently: Take 50 mg by mouth daily at bedtime. As needed) fluticasone (FLONASE) 50 mcg/actuation nasal spray Use 2 Sprays in each nostril once daily. Rinse mouth after use. for nasal drainage and congestion blood sugar diagnostic (BLOOD GLUCOSE TEST) test strip Test blood sugar(s) 1 times daily. Dx: Type 2 DM - Controlled E11.9 Insulin: No fexofenadine (CECY ALLERGY) 60 mg tablet Take 1 tablet by mouth twice daily. COMPOUNDED PRESCRIPTION One touch ultra 2, test strips Test 3 times daily. Dx: E11.9 Insulin: No COMPOUNDED PRESCRIPTION Easy Touch Health Pro test strips. To be tested 2 times a day (more content not included)... Normal [facility] HEMOGLOBIN A1C (POC)on 10-11 HbA1c (Bld) [Mass fraction] 7.8 % Abnormal 4.3 - 5.6 % [facility] Comment on above: Location:[address], [place], [address] Point of care (POC) Hemoglobin A1c (HGBA1C) testing is intended to assess glucose control and provide a management tool for patients known to have diabetes and their healthcare providers. Target HGBA1C levels may depend on specific clinical circumstances. POC HGBA1C is not intended for use as a diagnostic or screening test; laboratory-based testing should be used for diagnostic purposes. The following information is supplemental and may not be applicable to specific diabetes management situations: The POC device can cleaner provides a normal range of 4.2% to 6.5% for the HGBA1C POC test. However, the [place] [employer] guidelines indicate that patients with HGBA1C in the range of 5.7% to 6.4% are at increased risk for development of diabetes and that intervention by lifestyle modification may be beneficial. A HGBA1C level greater than or equal to 6.5% is considered diagnostic of diabetes, pending confirmatory testing. Use of HGBA1C testing to evaluate glucose control may not be appropriate for patients with hemoglobin variants or other conditions (e.g. anemia) that alter red blood cell lifespan. Interpretation and review of laboratory results Abnormal [facility] Inital Evaluation (1) - PTon 09-25-2024 Inital Evaluation (1) - PT [facility] Physical Therapy [facility] [address] [place] [address] / REHABILITATION SERVICES INITIAL EVALUATION MR#: [id number] Acct: [id number] Name: SHANNON LEIJA Rep #: [id number] : 1940 84 From: Tin Perdomo PT, ATC Referring Dr.: Dr. Arsh Chaney, DPM Status: REG RCR Insurance: MEDICARE PART A B AARP Patient's Visit Information Visit Information Visit Information: SHANNON LEIJA is a 84 year old F referred to Physical Therapy by Dr. Arsh Chaney DPM with a diagnosis of R ankle instability. Date of Evaluation: 09/25/24 Physical Therapist: Tin Perdomo, PT, ATC Visit Plan Frequency: 2x /Week Duration: 4-6 Weeks Plan: R ankle strengthening, stretching, balance and proprio, stair negotiation, and HEP Subjective Subjective: Pt reports her R ankle has been giving out on her once a week for the last year. Pt notes she decided to tell her foot doctor about that since she lives along now and wants to be more careful. Pt reports her ankle is not really in pain now, but jest feels really weak. Pt notes she is limited with leaving her house at this time secondary to not feeling safe while walking in bad conditions. Pt reports she has had 3 x-rays which revealed an old fracture in her R ankle. Pt notes she has been given no limitations as she is able to continue exercising as before at this time. Pt notes no prior Hx of falls secondary to her R ankle becoming weak. No tingling or numbness in R LE. Pt has stairs in her house that she has to negotiate in order to do her laundry that she has to negotiate one stair at a time. Objective Objective: Neuro: B LE's are WNL to light touch throughout Palpation: Pt is very sore on the anterior talofibular lig. ROM: L ankle DF= 0, PF= 55; R ankle DF= -2, PF= 50 MMT: L ankle DF= 34, PF= 47; R ankle DF= 25, PF= 45 #F Balance/Special Test Scores Lower Extremity Functional Score: 75 Goals Goal 1:: Increase R ankle DF strength x 10#F to aid with stair negotiation Goal Time Frame: 4-6 Weeks Goal 2:: Increase R ankle DF ROM x 10 degrees to aid with restoring a more normalized gait pattern Goal Time Frame: 4-6 Weeks Goal 3:: I with HEP Goal Time Frame: 4-6 Weeks Rehabilitation Potential Physical Therapy Diagnosis: Pt has R ankle weakness and a Hx of instability Rehabilitation Potential: Good Anticipated Interventions Patient/Client Instruction: Educate patient on: Condition and Plan of Care For the Purpose of:: To improve self management Therapeutic Exercise to Include: Strength training, Balance training, Flexibilty training, Gait and locomotor training, Active ROM and Dynamic Lumbar Stabilization For the Purpose of:: To decrease pain, To increase ROM and To improve muscle performance and motor function Cryotherapy (ice pack, ice massage): Yes For the Purpose of:: To decrease pain Text: Thank you for the opportunity to evaluate your patient. For Medicare and Medicare HMO plans, please review the plan of care and approve it. It will need to be FAXED BACK to us at [phone] for Medicare purposes. For Medicare only, by signing this I certify the plan of care. Please let me know if there are questions or concerns regarding this plan of care. Physician Signature: Date: 09/25/24 1202 CC: ADITYA Chaney; Dr. Darin Alonzo MD [facility] Signed Normal [facility] CNPNon 09-19-2024 CNPN Telephone (INTMWS) SHANNON LEIJA ([id number]) 1940 F NFR Date Time Provider Department 09/19/24 DARIN ALONZO INTMWS During your visit today, we recorded the following information about you: Sarina Bobby RN 09/19/2024 9:30 AM Signed Patient calling and asking about thyroid lab testing results and instructions. Patient Notified: Thyroid levels in normal range. Continue current dosing of levothyroxine. Take care Griselda Lema, NAREN.[facility] Patient voices understanding. Sarina Bobby RN Allergies As of Date: 09/19/2024 Noted Allergy Reaction LISINOPRIL 05/09/2022 3 - Cough SULFA (SULFONAMIDE ANTIBIOTICS) 07/04/2005 2 - Rash Comments: Childhood reaction. Date Reviewed: 2024 Reviewed by: Danika Avilez MA - Fully Assessed Reason for Visit: Results [95] Prescriptions as of 09/19/2024 - levothyroxine (SYNTHROID) 125 mcg tablet Take 1 tablet by mouth once daily. Except take 1/2 tablet on Sundays - SITagliptin phosphate (JANUVIA) 100 mg tablet Take 1 tablet by mouth once daily. - blood sugar diagnostic (ONETOUCH ULTRA TEST) test strip TEST 1 TIME DAILY - Telmisartan 20 mg tablet TAKE 1 TABLET BY MOUTH ONCE DAILY - amLODIPine (NORVASC) 2.5 mg tablet TAKE 1 TABLET BY MOUTH ONCE DAILY - glimepiride (AMARYL) 2 mg tablet Take 1 tablet by mouth two times a day with meals. - simvastatin (ZOCOR) 10 mg tablet Take 1 tablet by mouth once daily. - metFORMIN (GLUCOPHAGE) 1,000 mg tablet TAKE 1 TABLET BY MOUTH TWICE DAILY - fluticasone furoate (ARNUITY ELLIPTA) 100 mcg/actuation inhaler Inhale 1 Puff as instructed once daily. - pantoprazole DR (PROTONIX) 20 mg tablet TAKE 1 TABLET BY MOUTH DAILY BEFORE BREAKFAST ON AN EMPTY STOMACH 1/2 HOUR BEFORE A MEAL - traZODone (DESYREL) 50 mg tablet TAKE 1 TABLET BY MOUTH DAILY AT BEDTIME - fluticasone (FLONASE) 50 mcg/actuation nasal spray Use 2 Sprays in each nostril once daily. Rinse mouth after use. for nasal drainage and congestion - blood sugar diagnostic (BLOOD GLUCOSE TEST) test strip Test blood sugar(s) 1 times daily. Dx: Type 2 DM - Controlled E11.9 Insulin: No - fexofenadine (CECY ALLERGY) 60 mg tablet Take 1 tablet by mouth twice daily. - COMPOUNDED PRESCRIPTION One touch ultra 2, test strips Test 3 times daily. Dx: E11.9 Insulin: No - COMPOUNDED PRESCRIPTION Easy Touch Health Pro test strips. To be tested 2 times a day - Aspirin 81 mg Tab Take 81 mg by mouth. - Bsijpsdngrqvz-Qmdkyegn-Ujbd in (CENTRUM SILVER) tab Take 1 tablet by mouth once daily. Problem List As Of Date 09/19/2024 Noted Resolved OVERWEIGHT [E66.9] 07/04/2005 02/16/2015 DIABETES MELLITUS TYPE II-UNCOMPL [E11.9] 07/04/2005 02/16/2015 Other and unspecified hyperlipidemia [E78.5] 07/04/2005 01/04/2016 Cough [R05.9] 07/04/2005 02/16/2015 DIVERTICULOSIS OF COLON W/O BLEED [K57.30] 07/04/2005 INT HEMORRHOID W/O COMPL [K64.8] 07/04/2005 Essential hypertension [I10] 01/03/2006 Hypothyroidism [E03.9] 01/03/2006 Other Joint Derangement, not Elsewhere Classifi*04/28/2009 Follicular bronchiolitis [J44.89] 10/28/2010 Steele angioma [D18.01] 04/17/2013 02/16/2015 Capillary angioma [I78.1] 04/17/2013 02/16/2015 Solar lentigo [L81.4] 04/17/2013 02/16/2015 Actinic skin damage [L57.8] 04/17/2013 02/16/2015 Telangiectasia [I78.1] 04/17/2013 02/16/2015 Cutaneous skin tags [L91.8] 04/17/2013 02/16/2015 DM (diabetes mellitus) (HCC) [E11.9] 08/11/2014 01/04/2016 Diabetes mellitus type 2, controlled, without c*08/10/2015 Hyperlipidemia [E78.5] 01/04/2016 Shoulder abscess [L02.419] 02/01/2016 Abscess [L02.91] 02/10/2016 Post-nasal drip [R09.82] 10/31/2017 Cough [R05.9] 07/04/2005 Gastroesophageal reflux disease without esophag*10/22/2020 Encounter Status:Closed by SARINA BOBBY on 09/19/24 Normal [facility] SCREENINGon 09-19-2024 [facility] SCREENING * * *Final Report* * * DATE OF EXAM: Sep 19 2024 10:22AM [facility] 0581 - [facility] SCREENING / PROCEDURE REASON: Encounter for screening mammogram for breast cancer * * * * Physician Interpretation * * * * RESULT: [address] [place] [address] #[id number] - [place] SCREENING HISTORY: Patient is 84 years old and is seen for screening and is asymptomatic in both breasts. Patient states no personal history of breast cancer. Patient states no personal history of other cancers. COMPARISON STUDIES: The present examination has been compared to prior imaging studies dated 08/18/2020 (mammogram), 08/19/2021 (mammogram), 08/22/2022 (mammogram) and 08/24/2023 (mammogram). MAMMOGRAM TECHNIQUE: The study was acquired using full field digital technology and interpreted from soft copy. Computer-aided detection was utilized by the radiologist in the interpretation of this examination. MAMMOGRAM FINDINGS: There are scattered areas of fibroglandular density. No suspicious masses, calcifications or other abnormalities are seen in either breast. There are no significant interval changes. IMPRESSION: There is no mammographic evidence of malignancy in either breast. Routine screening mammogram is recommended. Annual mammogram will be due in 1 year. BI-RADS Category 1: Negative RISK: Based on the Tyrer-Cuzick (TC) risk assessment model, this patient has a 0.5% lifetime risk of developing breast cancer, meaning they are at average risk for developing breast cancer. However, this is only an estimate based on available history provided on the patient's questionnaire. We encourage all patients to talk with their providers about these results, further recommendations for managing breast health, and appropriate supplemental screening options if the patient has dense breast tissue. Interpreting Radiologist: Charisse Webster M.D. Electronically signed on: 09/19/2024 Physics Teacher: EMEKA Transcribe Date/Time: Sep 19 2024 10:09A Dictated by: CHARISSE WEBSTER MD This examination was interpreted and the report reviewed and electronically signed by: CHARISSE WEBSTER MD on Sep 19 2024 4:28PM EST [id number] Normal [facility] Breast Screeningon 2024 IMPRESSION: There is no mammographic evidence of malignancy in either breast. Routine screening mammogram is recommended. Annual mammogram will be due in 1 year. BI-RADS Category 1: Negative RISK: Based on the Tyrer-Cuzick (TC) risk assessment model, this patient has a 0.5% lifetime risk of developing breast cancer, meaning they are at average risk for developing breast cancer. However, this is only an estimate based on available history provided on the patient's questionnaire. We encourage all patients to talk with their providers about these results, further recommendations for managing breast health, and appropriate supplemental screening options if the patient has dense breast tissue. Interpreting Radiologist: Charisse Webster M.D. Electronically signed on: 09/19/2024 Physics Teacher: EMEKA Malloryripatti Date/Time: Sep 19 2024 10:09A Dictated by: CHARISSE WEBSTER MD This examination was interpreted and the report reviewed and electronically signed by: CHARISSE WEBSTER MD on Sep 19 2024 4:28PM [facility] DIVISION OF RADIOLOGY * * *Final Report* * * DATE OF EXAM: Sep 19 2024 10:22AM [facility] 0581 - [facility] SCREENING / PROCEDURE REASON: Encounter for screening mammogram for breast cancer * * * * Physician Interpretation * * * * RESULT: [place] [address] #[id number] - [place] SCREENING HISTORY: Patient is 84 years old and is seen for screening and is asymptomatic in both breasts. Patient states no personal history of breast cancer. Patient states no personal history of other cancers. COMPARISON STUDIES: The present examination has been compared to prior imaging studies dated 08/18/2020 (mammogram), 08/19/2021 (mammogram), 08/22/2022 (mammogram) and 08/24/2023 (mammogram). MAMMOGRAM TECHNIQUE: The study was acquired using full field digital technology and interpreted from soft copy. Computer-aided detection was utilized by the radiologist in the interpretation of this examination. MAMMOGRAM FINDINGS: There are scattered areas of fibroglandular density. No suspicious masses, calcifications or other abnormalities are seen in either breast. There are no significant interval changes. DIVISION OF RADIOLOGY Provider, [facility] - 09/19/2024 * * *Final Report* * * DATE OF EXAM: Sep 19 2024 10:22AM [facility] 0581 - [facility] SCREENING / PROCEDURE REASON: Encounter for screening mammogram for breast cancer * * * * Physician Interpretation * * * * RESULT: [facility] [address] [place] [address] #[id number] - [place] SCREENING HISTORY: Patient is 84 years old and is seen for screening and is asymptomatic in both breasts. Patient states no personal history of breast cancer. Patient states no personal history of other cancers. COMPARISON STUDIES: The present examination has been compared to prior imaging studies dated 08/18/2020 (mammogram), 08/19/2021 (mammogram), 08/22/2022 (mammogram) and 08/24/2023 (mammogram). MAMMOGRAM TECHNIQUE: The study was acquired using full field digital technology and interpreted from soft copy. Computer-aided detection was utilized by the radiologist in the interpretation of this examination. MAMMOGRAM FINDINGS: There are scattered areas of fibroglandular density. No suspicious masses, calcifications or other abnormalities are seen in either breast. There are no significant interval changes. IMPRESSION IMPRESSION: There is no mammographic evidence of malignancy in either breast. Routine screening mammogram is recommended. Annual mammogram will be due in 1 year. BI-RADS Category 1: Negative RISK: Based on the Tyrer-Cuzick (TC) risk assessment model, this patient has a 0.5% lifetime risk of developing breast cancer, meaning they are at average risk for developing breast cancer. However, this is only an estimate based on available history provided on the patient's questionnaire. We encourage all patients to talk with their providers about these results, further recommendations for managing breast health, and appropriate supplemental screening options if the patient has dense breast tissue. Interpreting Radiologist: Charisse Webster M.D. Electronically signed on: 09/19/2024 Physics Teacher: EMEKA Transcribe Date/Time: Sep 19 2024 10:09A Dictated by: CHARISSE WEBSTER MD This examination was interpreted and the report reviewed and electronically signed by: CHARISSE WEBSTER MD on Sep 19 2024 4:28PM EST [facility] Radiology Study observation (narrative) [facility] MG Breast ScreeningOrdered B y: [facility] Provider on 09-19-2024 [facility] T4 Free SerPl-mCncon 025 Free T4 [Mass/Vol] 1.7 ng/dL Normal 0.9-1.7 [facility] Comment on above: Order Comment: Speci men Type: BLOOD SPECIMEN Ordering Facility: [facility] Address: [address] [place] [address] Performed By: #### 5 8410-2 #### [facility] CLIA [id number] [address] [place] [address] [place] TSH SerPl-aCncon 09-16-2024 TSH Qn 0.368 m[IU]/L Normal 0.270-4.200 [facility] Comment on above: Order Comment: Speci men Type: BLOOD SPECIMEN Ordering Facility: [facility] Address: [address] [place] [address] Performed By: #### 5 8410-2 #### [facility] CLIA [id number] [address] [place] [address] [place] CNPShruthi 08-06-2024 CNPN Telephone (INTMWS) SHANNON LEIJA ([id number]) 1940 F NFR Date Time Provider Department 08/06/24 DARIN ALONZO INTWS During your visit today, we recorded the following information about you: Sarina Bobby RN 08/06/2024 3:36 PM Signed Patient calls and states that it is time for her annual mammogram. Patient asking if orders can be placed so that she can get this scheduled? SKY Espinosa Chitra, MD 08/06/2024 5:06 PM Signed Please help her schedule Regards, Arturo Montemayor MD, MA 08/07/2024 8:57 AM Signed Mammogram order placed. Please contact patient to schedule. Arturo Main MA Allergies As of Date: 08/06/2024 Noted Allergy Reaction LISINOPRIL 05/09/2022 3 - Cough SULFA (SULFONAMIDE ANTIBIOTICS) 07/04/2005 2 - Rash Comments: Childhood reaction. Date Reviewed: 2024 Reviewed by: Danika Avilez MA - Fully Assessed Reason for Visit: Orders [681] Cmt: Mammogram Primary Visit Diagnosis:Encounter for screening mammogram for breast cancer [Z12.31] Order(s):[facility] SCREENING [[id number]] Order #: [id number] FUTURE Prescriptions as of 08/07/2024 - levothyroxine (SYNTHROID) 125 mcg tablet Take 1 tablet by mouth once daily. Except take 1/2 tablet on Sundays - SITagliptin phosphate (JANUVIA) 100 mg tablet Take 1 tablet by mouth once daily. - blood sugar diagnostic (ONETOUCH ULTRA TEST) test strip TEST 1 TIME DAILY - Telmisartan 20 mg tablet TAKE 1 TABLET BY MOUTH ONCE DAILY - amLODIPine (NORVASC) 2.5 mg tablet TAKE 1 TABLET BY MOUTH ONCE DAILY - glimepiride (AMARYL) 2 mg tablet Take 1 tablet by mouth two times a day with meals. - simvastatin (ZOCOR) 10 mg tablet Take 1 tablet by mouth once daily. - metFORMIN (GLUCOPHAGE) 1,000 mg tablet TAKE 1 TABLET BY MOUTH TWICE DAILY - fluticasone furoate (ARNUITY ELLIPTA) 100 mcg/actuation inhaler Inhale 1 Puff as instructed once daily. - pantoprazole DR (PROTONIX) 20 mg tablet TAKE 1 TABLET BY MOUTH DAILY BEFORE BREAKFAST ON AN EMPTY STOMACH 1/2 HOUR BEFORE A MEAL - traZODone (DESYREL) 50 mg tablet TAKE 1 TABLET BY MOUTH DAILY AT BEDTIME - fluticasone (FLONASE) 50 mcg/actuation nasal spray Use 2 Sprays in each nostril once daily. Rinse mouth after use. for nasal drainage and congestion - blood sugar diagnostic (BLOOD GLUCOSE TEST) test strip Test blood sugar(s) 1 times daily. Dx: Type 2 DM - Controlled E11.9 Insulin: No - fexofenadine (CECY ALLERGY) 60 mg tablet Take 1 tablet by mouth twice daily. - COMPOUNDED PRESCRIPTION One touch ultra 2, test strips Test 3 times daily. Dx: E11.9 Insulin: No - COMPOUNDED PRESCRIPTION Easy Touch Health Pro test strips. To be tested 2 times a day - Aspirin 81 mg Tab Take 81 mg by mouth. - Wnzxqazozgxok-Teulmwqe-Hyhn in (CENTRUM SILVER) tab Take 1 tablet by mouth once daily. Problem List As Of Date 08/06/2024 Noted Resolved OVERWEIGHT [E66.9] 07/04/2005 02/16/2015 DIABETES MELLITUS TYPE II-UNCOMPL [E11.9] 07/04/2005 02/16/2015 Other and unspecified hyperlipidemia [E78.5] 07/04/2005 01/04/2016 Cough [R05.9] 07/04/2005 02/16/2015 DIVERTICULOSIS OF COLON W/O BLEED [K57.30] 07/04/2005 INT HEMORRHOID W/O COMPL [K64.8] 07/04/2005 Essential hypertension [I10] 01/03/2006 Hypothyroidism [E03.9] 01/03/2006 Other Joint Derangement, not Elsewhere Classifi*04/28/2009 Follicular bronchiolitis [J44.89] 10/28/2010 Steele angioma [D18.01] 04/17/2013 02/16/2015 Capillary angioma [I78.1] 04/17/2013 02/16/2015 Solar lentigo [L81.4] 04/17/2013 02/16/2015 Actinic skin damage [L57.8] 04/17/2013 02/16/2015 Telangiectasia [I78.1] 04/17/2013 02/16/2015 Cutaneous skin tags [L91.8] 04/17/2013 02/16/2015 DM (diabetes mellitus) (HCC) [E11.9] 08/11/2014 01/04/2016 Diabetes mellitus type 2, controlled, without c*08/10/2015 Hyperlipidemia [E78.5] 01/04/2016 Shoulder abscess [L02.419] 02/01/2016 Abscess [L02.91] 02/10/2016 Post-nasal drip [R09.82] 10/31/2017 Cough [R05.9] 07/04/2005 Gastroesophageal reflux disease without esophag*10/22/2020 Encounter Status:Closed by ARTURO MAIN on 08/07/24 Normal [facility] CNPShruthi 08-05-2024 CNPN Telephone (INTMWS) SHANNON LEIJA ([id number]) 1940 F NFR Date Time Provider Department 08/05/24 GRISELDA LEMA During your visit today, we recorded the following information about you: Griselda Lema APRN.CNP 08/05/2024 7:23 AM Signed TSH still abnormal. Verify she is taking 1 tablet daily. If so, cut one tablet in half once daily and we will recheck in 4-6 weeks. Thank you Griselda Lema APRN.Danika Rodriguez MA 08/05/2024 9:53 AM Signed Patient notified. Allergies As of Date: 08/05/2024 Noted Allergy Reaction LISINOPRIL 05/09/2022 3 - Cough SULFA (SULFONAMIDE ANTIBIOTICS) 07/04/2005 2 - Rash Comments: Childhood reaction. Date Reviewed: 2024 Reviewed by: Danika Avilez MA - Fully Assessed Reason for Visit: Results [95] Primary Visit Diagnosis:Acquired hypothyroidism [E03.9] Other Visit Diagnosis:Medication management [Z79.899] Order(s):THYROID STIMULATING HORMONE [SQTSH] Order #: [id number] FUTURE T4 FREE/FREE THYROXINE [SQFT4] Order #: [id number] FUTURE levothyroxine (SYNTHROID) 125 mcg tabletTake 1 tablet by mouth once daily. Except take 1/2 tablet on SundaysDisp: 90 tabletRfl: 3 Prescriptions as of 08/05/2024 - levothyroxine (SYNTHROID) 125 mcg tablet Take 1 tablet by mouth once daily. Except take 1/2 tablet on Sundays - SITagliptin phosphate (JANUVIA) 100 mg tablet Take 1 tablet by mouth once daily. - blood sugar diagnostic (ONETOUCH ULTRA TEST) test strip TEST 1 TIME DAILY - Telmisartan 20 mg tablet TAKE 1 TABLET BY MOUTH ONCE DAILY - amLODIPine (NORVASC) 2.5 mg tablet TAKE 1 TABLET BY MOUTH ONCE DAILY - glimepiride (AMARYL) 2 mg tablet Take 1 tablet by mouth two times a day with meals. - simvastatin (ZOCOR) 10 mg tablet Take 1 tablet by mouth once daily. - metFORMIN (GLUCOPHAGE) 1,000 mg tablet TAKE 1 TABLET BY MOUTH TWICE DAILY - fluticasone furoate (ARNUITY ELLIPTA) 100 mcg/actuation inhaler Inhale 1 Puff as instructed once daily. - pantoprazole DR (PROTONIX) 20 mg tablet TAKE 1 TABLET BY MOUTH DAILY BEFORE BREAKFAST ON AN EMPTY STOMACH 1/2 HOUR BEFORE A MEAL - traZODone (DESYREL) 50 mg tablet TAKE 1 TABLET BY MOUTH DAILY AT BEDTIME - fluticasone (FLONASE) 50 mcg/actuation nasal spray Use 2 Sprays in each nostril once daily. Rinse mouth after use. for nasal drainage and congestion - blood sugar diagnostic (BLOOD GLUCOSE TEST) test strip Test blood sugar(s) 1 times daily. Dx: Type 2 DM - Controlled E11.9 Insulin: No - fexofenadine (CECY ALLERGY) 60 mg tablet Take 1 tablet by mouth twice daily. - COMPOUNDED PRESCRIPTION One touch ultra 2, test strips Test 3 times daily. Dx: E11.9 Insulin: No - COMPOUNDED PRESCRIPTION Easy Touch Health Pro test strips. To be tested 2 times a day - Aspirin 81 mg Tab Take 81 mg by mouth. - Tbuhebhsnobec-Lpcgvrkh-Tlno in (CENTRUM SILVER) tab Take 1 tablet by mouth once daily. Problem List As Of Date 08/05/2024 Noted Resolved OVERWEIGHT [E66.9] 07/04/2005 02/16/2015 DIABETES MELLITUS TYPE II-UNCOMPL [E11.9] 07/04/2005 02/16/2015 Other and unspecified hyperlipidemia [E78.5] 07/04/2005 01/04/2016 Cough [R05.9] 07/04/2005 02/16/2015 DIVERTICULOSIS OF COLON W/O BLEED [K57.30] 07/04/2005 INT HEMORRHOID W/O COMPL [K64.8] 07/04/2005 Essential hypertension [I10] 01/03/2006 Hypothyroidism [E03.9] 01/03/2006 Other Joint Derangement, not Elsewhere Classifi*04/28/2009 Follicular bronchiolitis [J44.89] 10/28/2010 Steele angioma [D18.01] 04/17/2013 02/16/2015 Capillary angioma [I78.1] 04/17/2013 02/16/2015 Solar lentigo [L81.4] 04/17/2013 02/16/2015 Actinic skin damage [L57.8] 04/17/2013 02/16/2015 Telangiectasia [I78.1] 04/17/2013 02/16/2015 Cutaneous skin tags [L91.8] 04/17/2013 02/16/2015 DM (diabetes mellitus) (HCC) [E11.9] 08/11/2014 01/04/2016 Diabetes mellitus type 2, controlled, without c*08/10/2015 Hyperlipidemia [E78.5] 01/04/2016 Shoulder abscess [L02.419] 02/01/2016 Abscess [L02.91] 02/10/2016 Post-nasal drip [R09.82] 10/31/2017 Cough [R05.9] 07/04/2005 Gastroesophageal reflux disease without esophag*10/22/2020 Prescriptions ordered this encounter Disp Refills Start End LEVOTHYROXINE 125 MCG TABLET 90 t* 3 08/05/2024 Class: Med Update Route: ORAL Sig: Take 1 tablet by mouth once daily. Except take 1/2 tablet on Sundays Medications Discontinued During This Encounter Prescriptions - levothyroxine (SYNTHROID) 125 mcg tablet (Discontinued) Take 1 tablet by mouth once daily. Encounter Status:Closed by DANIKA AVILEZ on 08/05/24 Normal [facility] TSH SerPl-aCncon 08-03-2024 TSH Qn 0.150 m[IU]/L Low 0.270-4.200 [facility] Comment on above: Order Comment: Speci men Type: BLOOD SPECIMENOrdering Facility: [facility] Address: [address] [place] [address] [place] [address] Performed By: #### 3 016-3 ####[facility] [id number] [facility] [id number] [address] [place] Russell 06-24-2024 CNPN Telephone (INTMWS) SHANNON LEIJA ([id number]) 1940 F NFR Date Time Provider Department 06/24/24 DARIN ALONZO During your visit today, we recorded the following information about you: Sarina Bobby RN 06/24/2024 11:16 AM Signed Patient calls and wanted office to know that she received her RSV Vaccine today at [facility] (06/24/2024) Patient also was checking with Griselda to see if she needed to get Dtap. Patient states that this was discussed in office that she had gotten a shot about a year ago when she went to [facility]. Patient making sure that she is not supposed to get another one. Please review and advise, SKY Espinosa Joy, APRN.PANEL INSTRUMENT REPAIRER 06/24/2024 11:20 AM Signed No need to get one at this time. Thank you Griselda Lema APRN.PANEL INSTRUMENT REPAIRER Danika Avilez MA 06/24/2024 1:41 PM Signed Patient notified and Health Maintenance updated. Allergies As of Date: 06/24/2024 Noted Allergy Reaction LISINOPRIL 05/09/2022 3 - Cough SULFA (SULFONAMIDE ANTIBIOTICS) 07/04/2005 2 - Rash Comments: Childhood reaction. Date Reviewed: 2024 Reviewed by: Danika Avilez MA - Fully Assessed Reason for Visit: Patient Update [1234] Prescriptions as of 06/24/2024 - levothyroxine (SYNTHROID) 125 mcg tablet Take 1 tablet by mouth once daily. - SITagliptin phosphate (JANUVIA) 100 mg tablet Take 1 tablet by mouth once daily. - blood sugar diagnostic (Software Spectrum CorporationTOUCH ULTRA TEST) test strip TEST 1 TIME DAILY - Telmisartan 20 mg tablet TAKE 1 TABLET BY MOUTH ONCE DAILY - amLODIPine (NORVASC) 2.5 mg tablet TAKE 1 TABLET BY MOUTH ONCE DAILY - glimepiride (AMARYL) 2 mg tablet Take 1 tablet by mouth two times a day with meals. - simvastatin (ZOCOR) 10 mg tablet Take 1 tablet by mouth once daily. - metFORMIN (GLUCOPHAGE) 1,000 mg tablet TAKE 1 TABLET BY MOUTH TWICE DAILY - fluticasone furoate (ARNUITY ELLIPTA) 100 mcg/actuation inhaler Inhale 1 Puff as instructed once daily. - pantoprazole DR (PROTONIX) 20 mg tablet TAKE 1 TABLET BY MOUTH DAILY BEFORE BREAKFAST ON AN EMPTY STOMACH 1/2 HOUR BEFORE A MEAL - traZODone (DESYREL) 50 mg tablet TAKE 1 TABLET BY MOUTH DAILY AT BEDTIME - fluticasone (FLONASE) 50 mcg/actuation nasal spray Use 2 Sprays in each nostril once daily. Rinse mouth after use. for nasal drainage and congestion - blood sugar diagnostic (BLOOD GLUCOSE TEST) test strip Test blood sugar(s) 1 times daily. Dx: Type 2 DM - Controlled E11.9 Insulin: No - fexofenadine (CECY ALLERGY) 60 mg tablet Take 1 tablet by mouth twice daily. - COMPOUNDED PRESCRIPTION One touch ultra 2, test strips Test 3 times daily. Dx: E11.9 Insulin: No - COMPOUNDED PRESCRIPTION Easy Touch Health Pro test strips. To be tested 2 times a day - Aspirin 81 mg Tab Take 81 mg by mouth. - Iegeowjrtjles-Czlpepva-Orgv in (CENTRUM SILVER) tab Take 1 tablet by mouth once daily. Problem List As Of Date 06/24/2024 Noted Resolved OVERWEIGHT [E66.9] 07/04/2005 02/16/2015 DIABETES MELLITUS TYPE II-UNCOMPL [E11.9] 07/04/2005 02/16/2015 Other and unspecified hyperlipidemia [E78.5] 07/04/2005 01/04/2016 Cough [R05.9] 07/04/2005 02/16/2015 DIVERTICULOSIS OF COLON W/O BLEED [K57.30] 07/04/2005 INT HEMORRHOID W/O COMPL [K64.8] 07/04/2005 Essential hypertension [I10] 01/03/2006 Hypothyroidism [E03.9] 01/03/2006 Other Joint Derangement, not Elsewhere Classifi*04/28/2009 Follicular bronchiolitis [J44.89] 10/28/2010 Steele angioma [D18.01] 04/17/2013 02/16/2015 Capillary angioma [I78.1] 04/17/2013 02/16/2015 Solar lentigo [L81.4] 04/17/2013 02/16/2015 Actinic skin damage [L57.8] 04/17/2013 02/16/2015 Telangiectasia [I78.1] 04/17/2013 02/16/2015 Cutaneous skin tags [L91.8] 04/17/2013 02/16/2015 DM (diabetes mellitus) (HCC) [E11.9] 08/11/2014 01/04/2016 Diabetes mellitus type 2, controlled, without c*08/10/2015 Hyperlipidemia [E78.5] 01/04/2016 Shoulder abscess [L02.419] 02/01/2016 Abscess [L02.91] 02/10/2016 Post-nasal drip [R09.82] 10/31/2017 Cough [R05.9] 07/04/2005 Gastroesophageal reflux disease without esophag*10/22/2020 Encounter Status:Closed by DANIKA AVILEZ on 06/24/24 [facility] CNOVon 2024 CNOV Office Visit (INTMWS ) SHANNON LEIJA ([id number]) 1940 F NFR Date Time Provider Department 06/21/24 7:20 AM GRISELDA LEMA INTMWS During your visit today, we recorded the following information about you: Pulse Respiration Blood pressure Weight 80/minute 16/minute 118/68 71.2 kg Griselda Lema APRN.CNP 2024 8:00 AM Signed CC: Patient presents with: Recheck: 3 month follow up HPI Shannon Leija is a 84 year old female who presents today for routine follow up. HTN and HLD: Ms. Lejia indicates that she is feeling well and denies any symptoms referable to elevated blood pressure. Specifically denies headache, chest pain, palpitations, dyspnea, and peripheral edema. Patient denies any side effects of her medication(s) and is compliant with their regimen. She does not check BP's generally. Shannon works out regularly 6-7 times per week with going to the gym. She watches her diet for sodium, low fat and low cholesterol most of the time. Last 3 Encounter BP Readings: Date: BP: 2024 118/68 03/21/2024 134/68 02/22/2024 169/79 DIABETES MELLITUS: Ms. Leija denies excessive thirst or increased frequency of urination, chest pain or dyspnea , numbness, tingling or pain in extremities, new or unusual visual symptoms, low sugar/hypoglycemic reactions, weight loss/gain, lightheadedness/dizziness, and bowel changes/loose stools. Follows a diabetic diet most of the time. She is compliant with medication(s) and is tolerating med(s) without any side effects. She reports checking her glucose on a once a day schedule with sugars in the fasting 150s range. Patient's last HgA1C was Hemoglobin A1C (%) Date Value 06/13/2024 7.8 12/11/2023 8.3 10/18/2021 6.8 07/09/2021 8.0 Hemoglobin A1C (POCT) (%) Date Value 03/21/2024 7.7 ) Last Ophthalmology exam was within the past 12 months. Needs to schedule annual exam. Hypothyroidism: taking medication as ordered. TSH low. Denies any abnormal changes in weight, energy, palpitations, anxiety, or other signs of abnormal thyroid. 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 PAST SURGICAL HISTORY Procedure Laterality Date APPENDECTOMY 05/1980 BONE DENSITY MULTIPLE SITES 11/2000 BRONCHOSCOPY COLONOSCOPY FLX DX W/COLLJ SPEC WHEN PFRMD 11/28/2003 Colonoscopy COLONOSCOPY FLX DX W/COLLJ SPEC WHEN PFRMD 03/13/14 Colonoscopy PAST SURGICAL HISTORY OF 02/1975 right thyroid lobectomy PAST SURGICAL HISTORY OF Left thigh cellulitis, had surgery to repair, states happened aprox 36 years ago. TOTAL ABDOMINAL HYSTERECT W/WO RMVL TUBE OVARY 05/1980 Hysterectomy, BETTY, partial salpingectomy ALLERGIES Lisinopril and Sulfa (Sulfonamide Antibiotics) MEDICATIONS blood sugar diagnostic (ONETOUCH ULTRA TEST) test strip TEST 1 TIME DAILY Telmisartan 20 mg tablet TAKE 1 TABLET BY MOUTH ONCE DAILY amLODIPine (NORVASC) 2.5 mg tablet TAKE 1 TABLET BY MOUTH ONCE DAILY glimepiride (AMARYL) 2 mg tablet Take 1 tablet by mouth two times a day with meals. levothyroxine (SYNTHROID) 125 mcg tablet Take 1 tablet daily except take 1.5 tablets one day a week simvastatin (ZOCOR) 10 mg tablet Take 1 tablet by mouth once daily. metFORMIN (GLUCOPHAGE) 1,000 mg tablet TAKE 1 TABLET BY MOUTH TWICE DAILY fluticasone furoate (ARNUITY ELLIPTA) 100 mcg/actuation inhaler Inhale 1 Puff as instructed once daily. pantoprazole DR (PROTONIX) 20 mg tablet TAKE 1 TABLET BY MOUTH DAILY BEFORE BREAKFAST ON AN EMPTY STOMACH 1/2 HOUR BEFORE A MEAL SITagliptin phosphate (JANUVIA) 100 mg tablet Take 1 tablet by mouth once daily. traZODone (DESYREL) 50 mg tablet TAKE 1 TABLET BY MOUTH DAILY AT BEDTIME (Patient taking differently: Take 50 mg by mouth daily at bedtime. As needed) fluticasone (FLONASE) 50 mcg/actuation nasal spray Use 2 Sprays in each nostril once daily. Rinse mouth after use. for nasal drainage and congestion blood sugar diagnostic (BLOOD GLUCOSE TEST) test strip Test blood sugar(s) 1 times daily. Dx: Type 2 DM - Controlled E11.9 Insulin: No fexofenadine (CECY ALLERGY) 60 mg tablet Take 1 tablet by mouth twice daily. COMPOUNDED PRESCRIPTION One touch ultra 2, test strips Test 3 times daily. Dx: E11.9 Insulin: No COMPOUNDED PRESCRIPTION Easy Touch Health Pro test strips. To be tested 2 times a day A (more content not included)... Normal [facility] CNOVon 06-14-2024 CNOV Office Visit (PULMWS ) SHANNON LEIJA ([id number]) 1940 F NFR Date Time Provider Department 06/14/24 9:00 AM DORIE GILL PULMWS During your visit today, we recorded the following information about you: Weight 71.7 kg Dorie Gill, OUTSOLE PARAFFINER.PANEL INSTRUMENT REPAIRER 06/14/2024 10:34 AM Signed Pulmonary Medicine Patients name: Shannon Leija PCP: Darin Alonzo MD CC: follow-up, chronic cough HPI: Shannon Leija is a 83 year old female never smoker with PMH significant for HTN, DM2, rhinitis with postnasal drip, hypothyroidsim, GERD, HLD, 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 Following her PILAR in November, she had chest CT which showed air trapping. LABA was recommended but she continues on Arnuity at this time. Today, patient reports overall doing well. She continues to have a cough but not overly bothersome. Notes that PND and GERD worsens symptoms. Uses Protonix and Flonase. Cough is nonproductive. No wheezing. Denies dyspnea at rest or with exertion. She exercises 6-7 days a week without limitation. No recent illnesses. No need for steroids or antibiotics. No recent hospitalizations or ED visits or upper respiratory infections. Received her COVID vaccine in April. Scheduled to get the Flu vaccine. 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 Allergies: Lisinopril Cough Sulfa (Sulfonamide * Rash Comment:Childhood reaction. Medication List Accurate as of June 11, 2024 9:21 AM. If you have any questions, ask your nurse or doctor. CHANGE how you take these medications traZODone 50 mg tablet Commonly known as: DESYREL TAKE 1 TABLET BY MOUTH DAILY AT BEDTIME What changed: additional instructions CONTINUE taking these medications amLODIPine 2.5 mg tablet Commonly known as: NORVASC TAKE 1 TABLET BY MOUTH ONCE DAILY ARNUITY ELLIPTA 100 mcg/actuation inhaler Generic drug: fluticasone furoate Inhale 1 Puff as instructed once daily. Aspirin 81 mg Tab * BLOOD GLUCOSE TEST test strip Generic drug: blood sugar diagnostic Test blood sugar(s) 1 times daily. Dx: Type 2 DM - Controlled E11.9 Insulin: No * blood sugar diagnostic test strip Commonly known as: ONETOUCH ULTRA TEST TEST 1 TIME DAILY COMPOUNDED PRESCRIPTION Easy Touch Health Pro test strips. To be tested 2 times a day COMPOUNDED PRESCRIPTION One touch ultra 2, test strips Test 3 times daily. Dx: E11.9 Insulin: No fexofenadine 60 mg tablet Commonly known as: CECY ALLERGY Take 1 tablet by mouth twice daily. fluticasone 50 mcg/actuation nasal spray Commonly known as: FLONASE Use 2 Sprays in each nostril once daily. Rinse mouth after use. for nasal drainage and congestion glimepiride 2 mg tablet Commonly known as: AMARYL Take 1 tablet by mouth two times a day with meals. levothyroxine 125 mcg tablet Commonly known as: SYNTHROID Take 1 tablet daily except take 1.5 tablets one day a week metFORMIN 1,000 mg tablet Commonly known as: GLUCOPHAGE TAKE 1 TABLET BY MOUTH TWICE DAILY Pfaclmurgymab-Dvujjxpx-Ucfa in Tab Commonly known as: CENTRUM SILVER pantoprazole DR 20 mg tablet Commonly known as: PROTONIX TAKE 1 TABLET BY MOUTH DAILY BEFORE BREAKFAST ON AN EMPTY STOMACH 1/2 HOUR BEFORE A MEAL simvastatin 10 mg tablet Commonly known as: ZOCOR Take 1 tablet by mouth once daily. SITagliptin phosphate 100 mg tablet Commonly known as: JANUVIA Take 1 tablet by mouth once daily. Telmisartan 20 mg tablet TAKE 1 TABLET BY MOUTH ONCE DAILY * This list has 2 medication(s) that are the same as other medications prescribed for you. Read the directions carefully, and ask your doctor or other care provider to review them with you. DATA: I personally reviewed and analyzed all labs, radiographs and available pulmonary function testing PFT: 11/2022 Spirometry is normal CXR: Last XR Chest - Impression Only XR CHEST 2V FRONTAL/LAT Exam End: 11/07/2022 10:11 AM (Final result) Impression: IMPRESSION: No acute radiographic abnormality. ... CT Chest: 11/2023 IMPRESSION: 1. Mosaic attenuation of the lung parenchyma in the lower lobes which can be seen with small vessels or small airways disease. There is scattered air trapping on images with free breathing. 2. Stable subcentimeter pulmonary nodules 3. No thoracic lymphadenopathy Trans (more content not included)... Normal [facility] ALBUMIN/CREATININE RATIO, UR INEon 06-13-2024 Albumin DL <= 20 mg/L (U) [Mass/Vol] mg/dL Normal [facility] Comment on above: Order Comment: Speci men Type: URINE SPECIMENOrdering Facility: [facility] Address: [address] [place] [address] Performed By: #### U ACR ####[facility] [id number] [place] [address] [place] Albumin/Creatinine (U) [Mass ratio] <19 Normal <30 [facility] Comment on above: Order Comment: Speci men Type: URINE SPECIMENOrdering Facility: [facility] Address: [address] [place] [address] Result Comment: Adul t Male and Female Nephrotic Criteria: <30 mg/g is considered normal to mildly increased 30-300 mg/g is considered moderately increased >300 mg/g is considered severely increased KDIGO. (2013). KDIGO 2012 Clinical Practice Guideline for the Evaluation and Management of Chronic Kidney Disease. Official Journal of the International Society of Nephrology, 3(1), 1-150. Performed By: #### U ACR ####[facility] [id number] [place] [address] [place] Creatinine (U) [Mass/Vol] 64.7 mg/dL Normal 20.0-300.0 [facility] Comment on above: Order Comment: Speci men Type: URINE SPECIMENOrdering Facility: [facility] Address: [address] [place] [address] Performed By: #### U ACR ####[facility] [id number] [place] [address] [place] CBC panel Auto (Bld)on 06-13 Erythrocyte distribution width (RBC) [Ratio] 14.2 % Normal 11.5-15.0 [facility] Comment on above: Order Comment: Speci men Type: BLOOD SPECIMEN [facility] Address: [address] [place] [address] Performed By: #### 5 8410-2 #### [facility] CLIA [id number] [address] [place] [address] [place] Hematocrit (Bld) [Volume fraction] 39.8 % Normal 36.0-46.0 [facility] Comment on above: Order Comment: Speci men Type: BLOOD SPECIMEN [facility] Address: [address] [place] [address] Performed By: #### 5 8410-2 #### [facility] CLIA [id number] [address] [place] [address] [place] Hemoglobin (Bld) [Mass/Vol] 12.5 g/dL Normal 11.5-15.5 [facility] Comment on above: Order Comment: Speci men Type: BLOOD SPECIMEN [facility] Address: [address] [place] [address] Performed By: #### 5 8410-2 #### [facility] CLIA [id number] [address] [place] [address] [place] MCH (RBC) [Entitic mass] 28.7 pg Normal 26.0-34.0 [facility] Comment on above: Order Comment: Speci men Type: BLOOD SPECIMEN [facility] Address: [address] [place] [address] Performed By: #### 5 8410-2 #### [facility] CLIA [id number] [address] [place] [address] [place] MCHC (RBC) [Mass/Vol] 31.4 g/dL Normal 30.5-36.0 [facility] Comment on above: Order Comment: Speci men Type: BLOOD SPECIMEN [facility] Address: [address] [place] [address] Performed By: #### 5 8410-2 #### [facility] CLIA [id number] [address] [place] [address] [place] MCV (RBC) [Entitic vol] 91.5 fL Normal 80.0-100.0 [facility] Comment on above: Order Comment: Speci men Type: BLOOD SPECIMEN [facility] Address: [address] [place] [address] Performed By: #### 5 8410-2 #### [facility] CLIA [id number] [address] [place] [address] [place] Nucleated RBC (Bld) [#/Vol] 10*3/uL Normal <0.01 [facility] Comment on above: Order Comment: Speci men Type: BLOOD SPECIMEN [facility] Address: [address] [place] [address] Performed By: #### 5 8410-2 #### [facility] CLIA [id number] [address] [place] [address] [place] Platelet mean volume (Bld) [Entitic vol] 10.6 fL Normal 9.0-12.7 [facility] Comment on above: Order Comment: Speci men Type: BLOOD SPECIMEN [facility] Address: [address] [place] [address] Performed By: #### 5 8410-2 #### [facility] CLIA [id number] [address] [place] [address] [place] Platelets (Bld) [#/Vol] 252 10*3/uL Normal 150-400 [facility] Comment on above: Order Comment: Speci men Type: BLOOD SPECIMEN [facility] Address: [address] [place] [address] Performed By: #### 5 8410-2 #### [facility] CLIA [id number] [address] [place] [address] [place] RBC (Bld) [#/Vol] 4.35 10*6/uL Normal 3.90-5.20 [facility] Comment on above: Order Comment: Speci men Type: BLOOD SPECIMEN [facility] Address: [address] [place] [address] Performed By: #### 5 8410-2 #### [facility] CLIA [id number] [address] [place] [address] [place] WBC (Bld) [#/Vol] 6.67 10*3/uL Normal 3.70-11.00 [facility] Comment on above: Order Comment: Speci men Type: BLOOD SPECIMEN [facility] Address: [address] [place] [address] Performed By: #### 5 8410-2 #### [facility] CLIA [id number] [address] [place], [place] [id number] [place] Comprehensive metabolic 2000 panelon 06-13-2024 Albumin [Mass/Vol] 3.9 g/dL Normal 3.9-4.9 [facility] Comment on above: Order Comment: Speci men Type: BLOOD SPECIMEN [facility] Address: [address] [place] [address] Performed By: #### 5 8410-2 #### [facility] CLIA [id number] [address] [place], [place] [id number] [place] ALP [Catalytic activity/Vol] 57 U/L Normal 34-123 [facility] Comment on above: Order Comment: Speci men Type: BLOOD SPECIMEN [facility] Address: [address] [place] [address] Performed By: #### 5 8410-2 #### [facility] CLIA [id number] [address] [place] [address] [place] ALT [Catalytic activity/Vol] 20 U/L Normal 7-38 [facility] Comment on above: Order Comment: Speci men Type: BLOOD SPECIMEN Ordering Facility: [facility] Address: [address] [place] [address] Performed By: #### 5 8410-2 #### [facility] CLIA [id number] [address] [place] [address] [place] Anion gap [Moles/Vol] 11 mmol/L Normal 8-15 [facility] Comment on above: Order Comment: Speci men Type: BLOOD SPECIMEN Ordering Facility: [facility] Address: [address] [place] [address] Performed By: #### 5 8410-2 #### [facility] CLIA [id number] [address] [place] [address] [place] AST [Catalytic activity/Vol] 24 U/L Normal 13-35 [facility] Comment on above: Order Comment: Speci men Type: BLOOD SPECIMEN Ordering Facility: [facility] Address: [address] [place] [address] Performed By: #### 5 8410-2 #### [facility] CLIA [id number] [address] [place] [address] [place] Bilirubin [Mass/Vol] 0.3 mg/dL Normal 0.2-1.3 [facility] Comment on above: Order Comment: Speci men Type: BLOOD SPECIMEN Ordering Facility: [facility] Address: [address] [id number] Performed By: #### 5 8410-2 #### [facility] CLIA [id number] [address] [place] [address] [place] Calcium [Mass/Vol] 9.6 mg/dL Normal 8.5-10.2 [facility] Comment on above: Order Comment: Speci men Type: BLOOD SPECIMEN Ordering Facility: [facility] Address: [address] [place] [address] Performed By: #### 5 8410-2 #### [facility] CLIA [id number] [address] [place] [address] [place] Chloride [Moles/Vol] 100 mmol/L Normal 98-107 [facility] Comment on above: Order Comment: Speci men Type: BLOOD SPECIMEN Ordering Facility: [facility] Address: [address] [place] [address] Performed By: #### 5 8410-2 #### [facility] CLIA [id number] [address] [place] [address] [place] CO2 [Moles/Vol] 26 mmol/L Normal 22-30 [facility] Comment on above: Order Comment: Speci men Type: BLOOD SPECIMEN Ordering Facility: [facility] Address: [address] [place] [address] Performed By: #### 5 8410-2 #### [facility] CLIA [id number] [address] [place], [place] [id number] [place] Creatinine [Mass/Vol] 0.63 mg/dL Normal 0.58-0.96 [facility] Comment on above: Order Comment: Speci men Type: BLOOD SPECIMEN Ordering Facility: [facility] Address: [address] [place], [place] [id number] Performed By: #### 5 8410-2 #### [facility] CLIA [id number] [address] [place], [place] [id number] [place] Creatinine and Glomerular filtration rate.predicted panel (S/P/Bld) 89 mL/min/1.73m??? Normal >=60 [facility] Comment on above: Order Comment: Saba dickerson Type: BLOOD SPECIMEN Ordering Facility: [facility] Address: [address] [place] [address] Result Comment: Shari mated Glomerular Filtration Rate (eGFR) is calculated using the 2020 CKD-EPI creatinine equation. This equation utilizes serum creatinine, sex, and age as parameters. The creatinine assay has traceable calibration to isotope dilution-mass spectrometry. Refer to KDIGO guidelines for clinical interpretation. In patients with unstable renal function, e.g. those with acute kidney injury, the eGFR may not accurately reflect actual GFR. Performed By: #### 5 8410-2 #### [facility] CLIA [id number] [address] [place] [address] [place] Glucose [Mass/Vol] 126 mg/dL High 74-99 [facility] Comment on above: Order Comment: Saba dickerson Type: BLOOD SPECIMEN Ordering Facility: [facility] Address: [address] [place] [address] Result Comment: The [place] Diabetes Association (ADA) provides guidance for cutoff values for fasting glucose and random glucose. The ADA defines fasting as no caloric intake for at least 8 hours. Fasting plasma glucose results between 100 to 125 mg/dL indicate increased risk for diabetes (prediabetes). Fasting plasma glucose results greater than or equal to 126 mg/dL meet the criteria for diagnosis of diabetes. In the absence of unequivocal hyperglycemia, results should be confirmed by repeat testing. In a patient with classic symptoms of hyperglycemia or hyperglycemic crisis, random plasma glucose results greater than or equal to 200 mg/dL meet the criteria for diagnosis of diabetes. Reference: Standards of Medical Care in Diabetes 2016, [place] Diabetes Association. Diabetes Care. 2016.39(Suppl 1). Performed By: #### 5 8410-2 #### [facility] CLIA [id number] [address] [place] [address] [place] Potassium [Moles/Vol] 4.6 mmol/L Normal 3.7-5.1 [facility] Comment on above: Order Comment: Speci men Type: BLOOD SPECIMEN Ordering Facility: [facility] Address: [address] [place] [address] Performed By: #### 5 8410-2 #### [facility] CLIA [id number] [address] [place] [address] [place] Protein [Mass/Vol] 7.2 g/dL Normal 6.3-8.0 [facility] Comment on above: Order Comment: Speci men Type: BLOOD SPECIMEN Ordering Facility: [facility] Address: [address] [place] [address] Performed By: #### 5 8410-2 #### [facility] CLIA [id number] [address] [place] [address] [place] Sodium [Moles/Vol] 137 mmol/L Normal 136-144 [facility] Comment on above: Order Comment: Speci men Type: BLOOD SPECIMEN Ordering Facility: [facility] Address: [address] [place] [address] Performed By: #### 5 8410-2 #### [facility] CLIA [id number] [address] [place] [address] [place] Urea nitrogen [Mass/Vol] 19 mg/dL Normal 7-21 [facility] Comment on above: Order Comment: Speci men Type: BLOOD SPECIMEN Ordering Facility: [facility] Address: [address] [place] [address] Performed By: #### 5 8410-2 #### [facility] CLIA [id number] [address] [place], [place] [id number] [place] HbA1c (Bld)on 06-13-2024 Average glucose Estimated from glycated hemoglobin (Bld) [Mass/Vol] 177 mg/dL Normal [facility] Comment on above: Order Comment: Speci men Type: BLOOD SPECIMEN Ordering Facility: [facility] Address: [address] [place] [address] Result Comment: eAG: (Estimated average glucose) is a calculated value from HgbA1c and is customer care representative of the average blood glucose level in the last 2-3 month period. Performed By: #### 5 8410-2 #### [facility] CLIA [id number] [address] [place] [address] [place] HbA1c (Bld) [Mass fraction] 7.8 % High 4.3-5.6 [facility] Comment on above: Order Comment: Saba dickerson Type: BLOOD SPECIMEN Ordering Facility: [facility] Address: [address] [place] [address] Result Comment: [place] Diabetes Association guidelines indicate that patients with HgbA1c in the range 5.7-6.4% are at increased risk for development of diabetes, and intervention by lifestyle modification may be beneficial. HgbA1c greater or equal to 6.5% is considered diagnostic of diabetes. Performed By: #### 5 8410-2 #### [facility] CLIA [id number] [address] [place] [address] [place] Lipid 1996 panelon 4 Cholesterol [Mass/Vol] 136 mg/dL Normal <200 [facility] Comment on above: Order Comment: Saba dickerson Type: BLOOD SPECIMEN Ordering Facility: [facility] Address: [address] [place] [address] Result Comment: <200 mg/dL, Desirable 200-239 mg/dL, Borderline high >239 mg/dL, High Performed By: #### 5 8410-2 #### [facility] CLIA [id number] [address] [place] [address] [place] Cholesterol in HDL [Mass/Vol] 54 mg/dL Normal >39 [facility] Comment on above: Order Comment: Saba dickerson Type: BLOOD SPECIMEN Ordering Facility: [facility] Address: [address] [place] [address] Result Comment: 40-5 9 mg/dL, Acceptable >59 mg/dL, High: Negative risk factor for coronary heart disease <40 mg/dL, Low: Positive risk factor for coronary heart disease Performed By: #### 5 8410-2 #### [facility] CLIA [id number] [address] [place] [address] [place] Cholesterol in LDL [Mass/Vol] 71 mg/dL Normal <100 [facility] Comment on above: Order Comment: Speci men Type: BLOOD SPECIMEN Ordering Facility: [facility] Address: [address] [place] [address] Result Comment: <100 mg/dL, Optimal 100-129 mg/dL, Near optimal/above optimal 130-159 mg/dL, Borderline high 160-189 mg/dL, High >189 mg/dL, Very high Secondary prevention optimal LDL Cholesterol levels are recommended to be < 70 mg/dL Performed By: #### 5 8410-2 #### [facility] CLIA [id number] [address] [place] [address] [place] Cholesterol in LDL/Cholesterol in HDL [Mass ratio] 1.31 {ratio} Normal <2.54 [facility] Comment on above: Order Comment: Otonieli men Type: BLOOD SPECIMEN Ordering Facility: [facility] Address: [address] [place] [address] Result Comment: Agnieszka marte: 1. National Cholesterol Education Program ATP III Guideline At-A-Glance Quick Desk Reference: National Heart, Lung, and Blood Independence. National Institutes of Health. 2001: NIH Publication No. 01-3305. 2. An International Atherosclerosis Society position paper: global recommendations for the management of dyslipidemia: executive summary, Atherosclerosis. 2014: 232(2):410-413. Performed By: #### 5 8410-2 #### [facility] CLIA [id number] [address] [place] [address] [place] Cholesterol in VLDL [Mass/Vol] 11 mg/dL Normal <30 [facility] Comment on above: Order Comment: Otonieli men Type: BLOOD SPECIMEN Ordering Facility: [facility] Address: [address] [place] [address] Performed By: #### 5 8410-2 #### [facility] CLIA [id number] [address] [place] [address] [place] Cholesterol non HDL [Mass/Vol] 82 mg/dL Normal <130 [facility] Comment on above: Order Comment: Speci men Type: BLOOD SPECIMEN Ordering Facility: [facility] Address: [address] [place] [address] Result Comment: <130 mg/dL, Optimal 130-159 mg/dL, Near optimal/above optimal 160-189 mg/dL, Borderline high 190-219 mg/dL, High >219 mg/dL, Very high Secondary prevention optimal non HDL Cholesterol levels are recommended to be <100 mg/dL Performed By: #### 5 8410-2 #### [facility] CLIA [id number] [address] [place] [address] [place] Cholesterol.total/Ch olesterol in HDL [Mass ratio] 2.52 {ratio} Normal <5.10 [facility] Comment on above: Order Comment: Speci men Type: BLOOD SPECIMEN Ordering Facility: [facility] Address: [address] [place] [address] Performed By: #### 5 8410-2 #### [facility] CLIA [id number] [address] [place] [address] [place] FASTING TIME 12 hrs Normal [facility] Comment on above: Order Comment: Speci men Type: BLOOD SPECIMEN Ordering Facility: [facility] Address: [address] [place] [address] Performed By: #### 5 8410-2 #### [facility] CLIA [id number] [address] [place] [address] [place] Triglyceride [Mass/Vol] 54 mg/dL Normal <150 [facility] Comment on above: Order Comment: Speci men Type: BLOOD SPECIMEN Ordering Facility: [facility] Address: [address] [place] [address] Result Comment: <150 mg/dL, Normal 150-199 mg/dL, Borderline high 200-499 mg/dL, High >499 mg/dL, Very high Performed By: #### 5 8410-2 #### [facility] CLIA [id number] [address] [place], [place] [address] [place] [address] [place] TSH SerPl-aCncon 06-13-2024 TSH Qn 0.173 m[IU]/L Low 0.270-4.200 [facility] Comment on above: Order Comment: Speci men Type: BLOOD SPECIMEN Ordering Facility: [facility] Address: [address] [place] [address] Performed By: #### 5 8410-2 #### [facility] CLIA [id number] [address] [place] [address] [place] CNPShruthi 04-25-2024 CNPN Telephone (SHAYWS) SHANNON LEIJA ([id number]) 1940 F NFR Date Time Provider Department 04/25/24 DARIN ALONZO During your visit today, we recorded the following information about you: Jac Dumont LPN 04/25/2024 1:22 PM Signed Patient calls just to notify office that she saw Dr Chaney this morning at [facility] and ordered diabetic shoes. She just wanted office to know that we would be seeing an order come to us. Danika Avilez MA 04/25/2024 2:10 PM Signed Will watch for forms. Allergies As of Date: 04/25/2024 Noted Allergy Reaction LISINOPRIL 05/09/2022 3 - Cough SULFA (SULFONAMIDE ANTIBIOTICS) 07/04/2005 2 - Rash Comments: Childhood reaction. Date Reviewed: 03/21/2024 Reviewed by: Danika Avilez MA - Fully Assessed Reason for Visit: Patient Update [1234] Cmt: Diabetic shoes Prescriptions as of 06/03/2024 - blood sugar diagnostic (ONETOUCH ULTRA TEST) test strip TEST 1 TIME DAILY - Telmisartan 20 mg tablet TAKE 1 TABLET BY MOUTH ONCE DAILY - amLODIPine (NORVASC) 2.5 mg tablet TAKE 1 TABLET BY MOUTH ONCE DAILY - glimepiride (AMARYL) 2 mg tablet Take 1 tablet by mouth two times a day with meals. - levothyroxine (SYNTHROID) 125 mcg tablet Take 1 tablet daily except take 1.5 tablets one day a week - simvastatin (ZOCOR) 10 mg tablet Take 1 tablet by mouth once daily. - metFORMIN (GLUCOPHAGE) 1,000 mg tablet TAKE 1 TABLET BY MOUTH TWICE DAILY - fluticasone furoate (ARNUITY ELLIPTA) 100 mcg/actuation inhaler Inhale 1 Puff as instructed once daily. - pantoprazole DR (PROTONIX) 20 mg tablet TAKE 1 TABLET BY MOUTH DAILY BEFORE BREAKFAST ON AN EMPTY STOMACH 1/2 HOUR BEFORE A MEAL - SITagliptin phosphate (JANUVIA) 100 mg tablet Take 1 tablet by mouth once daily. - traZODone (DESYREL) 50 mg tablet TAKE 1 TABLET BY MOUTH DAILY AT BEDTIME - fluticasone (FLONASE) 50 mcg/actuation nasal spray Use 2 Sprays in each nostril once daily. Rinse mouth after use. for nasal drainage and congestion - blood sugar diagnostic (BLOOD GLUCOSE TEST) test strip Test blood sugar(s) 1 times daily. Dx: Type 2 DM - Controlled E11.9 Insulin: No - fexofenadine (CECY ALLERGY) 60 mg tablet Take 1 tablet by mouth twice daily. - COMPOUNDED PRESCRIPTION One touch ultra 2, test strips Test 3 times daily. Dx: E11.9 Insulin: No - COMPOUNDED PRESCRIPTION Easy Touch Health Pro test strips. To be tested 2 times a day - Aspirin 81 mg Tab Take 81 mg by mouth. - Uunojewgfeuee-Dbklkuro-Zxmk in (CENTRUM SILVER) tab Take 1 tablet by mouth once daily. Problem List As Of Date 04/25/2024 Noted Resolved OVERWEIGHT [E66.9] 07/04/2005 02/16/2015 DIABETES MELLITUS TYPE II-UNCOMPL [E11.9] 07/04/2005 02/16/2015 Other and unspecified hyperlipidemia [E78.5] 07/04/2005 01/04/2016 Cough [R05.9] 07/04/2005 02/16/2015 DIVERTICULOSIS OF COLON W/O BLEED [K57.30] 07/04/2005 INT HEMORRHOID W/O COMPL [K64.8] 07/04/2005 Essential hypertension [I10] 01/03/2006 Hypothyroidism [E03.9] 01/03/2006 Other Joint Derangement, not Elsewhere Classifi*04/28/2009 Follicular bronchiolitis [J44.89] 10/28/2010 Steele angioma [D18.01] 04/17/2013 02/16/2015 Capillary angioma [I78.1] 04/17/2013 02/16/2015 Solar lentigo [L81.4] 04/17/2013 02/16/2015 Actinic skin damage [L57.8] 04/17/2013 02/16/2015 Telangiectasia [I78.1] 04/17/2013 02/16/2015 Cutaneous skin tags [L91.8] 04/17/2013 02/16/2015 DM (diabetes mellitus) (HCC) [E11.9] 08/11/2014 01/04/2016 Diabetes mellitus type 2, controlled, without c*08/10/2015 Hyperlipidemia [E78.5] 01/04/2016 Shoulder abscess [L02.419] 02/01/2016 Abscess [L02.91] 02/10/2016 Post-nasal drip [R09.82] 10/31/2017 Cough [R05.9] 07/04/2005 Gastroesophageal reflux disease without esophag*10/22/2020 Encounter Status:Closed by JAC DUMONT on 06/03/24 [facility] CNShane 03-21-2024 CNOV Office Visit (INTMWS ) SHANNON LEIJA ([id number]) 1940 F NFR Date Time Provider Department 03/21/24 7:20 AM OLDER, GRISELDA INTMWS During your visit today, we recorded the following information about you: Pulse Respiration Blood pressure Weight 99/minute 16/minute 134/68 68.9 kg Older, RADHA VillalobosN.OLESYA 03/21/2024 8:12 AM Signed CC: Patient presents with: Recheck: 3 month DM follow up HPI Shannon Leija is a 83 year old female who presents today for diabetic follow up. Recently lost her so dealing with grief. 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 DIABETES MELLITUS: Ms. Leija denies excessive thirst or increased frequency of urination, chest pain or dyspnea , numbness, tingling or pain in extremities, new or unusual visual symptoms, low sugar/hypoglycemic reactions, weight loss/gain, lightheadedness/dizziness, and bowel changes/loose stools. Follows a diabetic diet most of the time. She is compliant with medication(s) and is tolerating med(s) without any side effects. She reports checking her glucose on a once a day schedule with sugars in the fasting 140s-160s range. Patient's last HgA1C was Hemoglobin A1C (%) Date Value 12/11/2023 8.3 08/05/2023 7.7 10/18/2021 6.8 07/09/2021 8.0 ) HTN and HLD: Ms. Leija indicates that she is feeling well and denies any symptoms referable to elevated blood pressure. Specifically denies headache, chest pain, palpitations, dyspnea, and peripheral edema. Patient denies any side effects of her medication(s) and is compliant with their regimen. She does not check BP's generally. Shannon Goes to [employer] almost daily and has friends there she can work out with. She watches her diet for sodium, low fat and low cholesterol most of the time. Last 3 Encounter BP Readings: Date: BP: 03/21/2024 134/68 02/22/2024 169/79 12/15/2023 128/70 GERD: Has been on PPI since 2019 and been controlled well. Would like to consider stopping this. Denies any heartburn, difficulty swallowing, or abdominal pain. Follicular bronchiolitis: Controlled well at this time but has been using her 's handicap placard in the car. Needs one of her own as long distances can increase cough. 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 PAST SURGICAL HISTORY Procedure Laterality Date APPENDECTOMY 05/1980 BONE DENSITY MULTIPLE SITES 11/2000 BRONCHOSCOPY COLONOSCOPY FLX DX W/COLLJ SPEC WHEN PFRMD 11/28/2003 Colonoscopy COLONOSCOPY FLX DX W/COLLJ SPEC WHEN PFRMD 03/13/14 Colonoscopy PAST SURGICAL HISTORY OF 02/1975 right thyroid lobectomy PAST SURGICAL HISTORY OF Left thigh cellulitis, had surgery to repair, states happened aprox 36 years ago. TOTAL ABDOMINAL HYSTERECT W/WO RMVL TUBE OVARY 05/1980 Hysterectomy, BETTY, partial salpingectomy ALLERGIES Lisinopril and Sulfa (Sulfonamide Antibiotics) MEDICATIONS Telmisartan 20 mg tablet TAKE 1 TABLET BY MOUTH ONCE DAILY amLODIPine (NORVASC) 2.5 mg tablet TAKE 1 TABLET BY MOUTH ONCE DAILY glimepiride (AMARYL) 2 mg tablet Take 1 tablet by mouth two times a day with meals. levothyroxine (SYNTHROID) 125 mcg tablet Take 1 tablet daily except take 1.5 tablets one day a week simvastatin (ZOCOR) 10 mg tablet Take 1 tablet by mouth once daily. metFORMIN (GLUCOPHAGE) 1,000 mg tablet TAKE 1 TABLET BY MOUTH TWICE DAILY fluticasone furoate (ARNUITY ELLIPTA) 100 mcg/actuation inhaler Inhale 1 Puff as instructed once daily. pantoprazole DR (PROTONIX) 20 mg tablet TAKE 1 TABLET BY MOUTH DAILY BEFORE BREAKFAST ON AN EMPTY STOMACH 1/2 HOUR BEFORE A MEAL SITagliptin phosphate (JANUVIA) 100 mg tablet Take 1 tablet by mouth once daily. blood sugar diagnostic ([employer] ULTRA TEST) test strip Test 1 time daily. traZODone (DESYREL) 50 mg tablet TAKE 1 TABLET BY MOUTH DAILY AT BEDTIME (Patient taking differently: Take 50 mg by mouth daily at bedtime. As needed) fluticasone (FLONASE) 50 mcg/actuation nasal spray Use 2 Sprays in each nostril once daily. Rinse mouth after use. for nasal drainage and congestion blood sugar diagnostic (BLOOD GLUCOSE TEST) test strip Test blood sugar(s) 1 times daily. Dx: Type 2 DM - Controlled E11.9 Insulin: No fexofenadine (CECY ALLERGY) 60 mg (more content not included)... Normal [facility] HEMOGLOBIN A1C (POC)on 03-21 HbA1c (Bld) [Mass fraction] 7.7 % Abnormal 4.3 - 5.6 % [facility] Comment on above: Location:[address], [place], [address] Point of care (POC) Hemoglobin A1c (HGBA1C) testing is intended to assess glucose control and provide a management tool for patients known to have diabetes and their healthcare providers. Target HGBA1C levels may depend on specific clinical circumstances. POC HGBA1C is not intended for use as a diagnostic or screening test; laboratory-based testing should be used for diagnostic purposes. The following information is supplemental and may not be applicable to specific diabetes management situations: The POC device can cleaner provides a normal range of 4.2% to 6.5% for the HGBA1C POC test. However, the [place] Diabetes Association guidelines indicate that patients with HGBA1C in the range of 5.7% to 6.4% are at increased risk for development of diabetes and that intervention by lifestyle modification may be beneficial. A HGBA1C level greater than or equal to 6.5% is considered diagnostic of diabetes, pending confirmatory testing. Use of HGBA1C testing to evaluate glucose control may not be appropriate for patients with hemoglobin variants or other conditions (e.g. anemia) that alter red blood cell lifespan. Interpretation and review of laboratory results Abnormal [facility] No Panel Informationon 04-10 IMPRESSION: No acute osseous findings right hip. Right hip joint is maintained. No acute osseous findings right ankle. Joint spaces are maintained Physics Teacher: SAVITA Transcribe Date/Time: Apr 10 2023 3:17P Dictated by : TACOS JUSTIN MD This examination was interpreted and the report reviewed and electronically signed by: TACOS JUSTIN MD on Apr 10 2023 3:20PM [facility] DIVISION OF RADIOLOGY Radiology Study observation (narrative) [facility] No Panel InformationOrdered By: [facility]cf Provider on 04-10-2023 [facility] XR Ankle - right AP and Late ral and obliqueon 04-10-2023 * * *Final Report* * * DATE OF EXAM: Apr 10 2023 11:05AM WOX [id number] - XR ANKLE 3V AP/LAT/OBL RT / PROCEDURE REASON: Right ankle instability * * * * Physician Interpretation * * * * EXAMINATION: XR HIP 3V PELV+ AP/LAT RT, XR ANKLE 3V AP/LAT/OBL RT CLINICAL HISTORY: Right posterior hip pain that radiates down the thigh x 4-5 months. No injury. (accession [id number]), Right ankle weakness without pain x 4-5 months. No injury (accession [id number]) Tenderness of right hip (accession [id number]), Right ankle instability (accession [id number]) Right thigh pain Technique: XR HIP 3V PELV+ AP/LAT RT, XR ANKLE 3V AP/LAT/OBL RT -- RIGHT with 3 views on 3 images Comparison: None RESULT: Hip: No fracture or dislocation. Right hip joint is maintained. No significant osteophytosis. No erosions or chondrocalcinosis. SI joints and pubic symphysis are intact. Degenerative changes in the lower lumbar spine. Ankle: No fracture or dislocation. Normal ankle mortise. Normal talar dome. Joint spaces are maintained. Small plantar and posterior calcaneal enthesophytes. No focal soft tissue swelling seen on radiograph. DIVISION OF RADIOLOGY Provider, [facility] - 04/10/2023 * * *Final Report* * * DATE OF EXAM: Apr 10 2023 11:05AM WOX 5297 - XR ANKLE 3V AP/LAT/OBL RT / PROCEDURE REASON: Right ankle instability * * * * Physician Interpretation * * * * EXAMINATION: XR HIP 3V PELV+ AP/LAT RT, XR ANKLE 3V AP/LAT/OBL RT CLINICAL HISTORY: Right posterior hip pain that radiates down the thigh x 4-5 months. No injury. (accession [id number]), Right ankle weakness without pain x 4-5 months. No injury (accession [id number]) Tenderness of right hip (accession [id number]), Right ankle instability (accession [id number]) Right thigh pain Technique: XR HIP 3V PELV+ AP/LAT RT, XR ANKLE 3V AP/LAT/OBL RT -- RIGHT with 3 views on 3 images Comparison: None RESULT: Hip: No fracture or dislocation. Right hip joint is maintained. No significant osteophytosis. No erosions or chondrocalcinosis. SI joints and pubic symphysis are intact. Degenerative changes in the lower lumbar spine. Ankle: No fracture or dislocation. Normal ankle mortise. Normal talar dome. Joint spaces are maintained. Small plantar and posterior calcaneal enthesophytes. No focal soft tissue swelling seen on radiograph. IMPRESSION IMPRESSION: No acute osseous findings right hip. Right hip joint is maintained. No acute osseous findings right ankle. Joint spaces are maintained Physics Teacher: SAVITA Transcribe Date/Time: Apr 10 2023 3:17P Dictated by : TACOS JUSTIN MD This examination was interpreted and the report reviewed and electronically signed by: TACOS JUSTIN MD on Apr 10 2023 3:20PM [facility] XR Pelvis and Hip - right AP and Lateral frogon 04-10-2023 * * *Final Report* * * DATE OF EXAM: Apr 10 2023 11:05AM WOX 5352 - XR HIP 3V PELV+ AP/LAT RT / PROCEDURE REASON: multiple diagnoses * * * * Physician Interpretation * * * * EXAMINATION: XR HIP 3V PELV+ AP/LAT RT, XR ANKLE 3V AP/LAT/OBL RT CLINICAL HISTORY: Right posterior hip pain that radiates down the thigh x 4-5 months. No injury. (accession [id number]), Right ankle weakness without pain x 4-5 months. No injury (accession [id number]) Tenderness of right hip (accession [id number]), Right ankle instability (accession [id number]) Right thigh pain Technique: XR HIP 3V PELV+ AP/LAT RT, XR ANKLE 3V AP/LAT/OBL RT -- RIGHT with 3 views on 3 images Comparison: None RESULT: Hip: No fracture or dislocation. Right hip joint is maintained. No significant osteophytosis. No erosions or chondrocalcinosis. SI joints and pubic symphysis are intact. Degenerative changes in the lower lumbar spine. Ankle: No fracture or dislocation. Normal ankle mortise. Normal talar dome. Joint spaces are maintained. Small plantar and posterior calcaneal enthesophytes. No focal soft tissue swelling seen on radiograph. DIVISION OF RADIOLOGY Provider, [facility] - 04/10/2023 * * *Final Report* * * DATE OF EXAM: Apr 10 2023 11:05AM WOX 5352 - XR HIP 3V PELV+ AP/LAT RT / PROCEDURE REASON: multiple diagnoses * * * * Physician Interpretation * * * * EXAMINATION: XR HIP 3V PELV+ AP/LAT RT, XR ANKLE 3V AP/LAT/OBL RT CLINICAL HISTORY: Right posterior hip pain that radiates down the thigh x 4-5 months. No injury. (accession [id number]), Right ankle weakness without pain x 4-5 months. No injury (accession [id number]) Tenderness of right hip (accession [id number]), Right ankle instability (accession [id number]) Right thigh pain Technique: XR HIP 3V PELV+ AP/LAT RT, XR ANKLE 3V AP/LAT/OBL RT -- RIGHT with 3 views on 3 images Comparison: None RESULT: Hip: No fracture or dislocation. Right hip joint is maintained. No significant osteophytosis. No erosions or chondrocalcinosis. SI joints and pubic symphysis are intact. Degenerative changes in the lower lumbar spine. Ankle: No fracture or dislocation. Normal ankle mortise. Normal talar dome. Joint spaces are maintained. Small plantar and posterior calcaneal enthesophytes. No focal soft tissue swelling seen on radiograph. IMPRESSION IMPRESSION: No acute osseous findings right hip. Right hip joint is maintained. No acute osseous findings right ankle. Joint spaces are maintained Physics Teacher: SAVITA Transcribe Date/Time: Apr 10 2023 3:17P Dictated by : TACOS JUSTIN MD This examination was interpreted and the report reviewed and electronically signed by: TACOS JUSTIN MD on Apr 10 2023 3:20PM [facility] XR Chest PA and Lateralon IMPRESSION: No acute radiographic abnormality. Physics Teacher: PSCB Transcribe Date/Time: Nov 08 2022 4:00P Dictated by : MAEYLIN VORA MD This examination was interpreted and the report reviewed and electronically signed by: MAYELIN VORA MD on Nov 08 2022 4:02PM [facility] DIVISION OF RADIOLOGY * * *Final Report* * * DATE OF EXAM: Nov 07 2022 10:11AM WOX 5291 - XR CHEST 2V FRONTAL/LAT / PROCEDURE REASON: Follicular bronchiolitis (HCC) * * * * Physician Interpretation * * * * EXAMINATION: CHEST RADIOGRAPH (2 VIEW FRONTAL & LATERAL) CLINICAL HISTORY: Follicular bronchiolitis (HCC) MQ: XC2_6 EXAM DATE/TIME: 11/07/2022 10:11 AM COMPARISON: Chest x-ray dated June 15, 2022 RESULT: Lines, tubes, and devices: None. Lungs and pleura: No consolidation. No lung mass. No pleural effusion. No pneumothorax. Cardiomediastinal silhouette: Normal cardiomediastinal silhouette. Bones and soft tissues: Osseous demineralization and degenerative changes. DIVISION OF RADIOLOGY Provider, [facility] - 11/08/2022 * * *Final Report* * * DATE OF EXAM: Nov 07 2022 10:11AM WOX 5291 - XR CHEST 2V FRONTAL/LAT / PROCEDURE REASON: Follicular bronchiolitis (HCC) * * * * Physician Interpretation * * * * EXAMINATION: CHEST RADIOGRAPH (2 VIEW FRONTAL & LATERAL) CLINICAL HISTORY: Follicular bronchiolitis (HCC) MQ: XC2_6 EXAM DATE/TIME: 11/07/2022 10:11 AM COMPARISON: Chest x-ray dated June 15, 2022 RESULT: Lines, tubes, and devices: None. Lungs and pleura: No consolidation. No lung mass. No pleural effusion. No pneumothorax. Cardiomediastinal silhouette: Normal cardiomediastinal silhouette. Bones and soft tissues: Osseous demineralization and degenerative changes. IMPRESSION IMPRESSION: No acute radiographic abnormality. Physics Teacher: PSCKyle Transcribe Date/Time: Nov 08 2022 4:00P Dictated by : MAYELIN VORA MD This examination was interpreted and the report reviewed and electronically signed by: MAYELIN VORA MD on Nov 08 2022 4:02PM [facility] XR Chest PA and LateralOrder ed By: [facility] Provider on 11-08-2022 [facility] XR Chest PA and Lateralon Radiology Study observation (narrative) [facility] No Panel Informationon 08-22 [facility] Eosinophils Auto (Bld) [#/Vo l]on 07-15-2022 Eosinophils (Bld) [#/Vol] 0.17 10*3/uL <0.46 k/uL [facility] XR CHEST 2V FRONTAL/LATon [facility] XR Chest PA and Lateralon IMPRESSION: No acute radiographic abnormality. Physics Teacher: PSCB Transcribe Date/Time: Jun 15 2022 9:00A Dictated by : OSMANY COLE MD This examination was interpreted and the report reviewed and electronically signed by: OSMANY COLE MD on Jun 15 2022 9:01AM [facility] DIVISION OF RADIOLOGY * * *Final Report* * * DATE OF EXAM: Jun 15 2022 8:36AM WOX 5291 - XR CHEST 2V FRONTAL/LAT / PROCEDURE REASON: Acute cough * * * * Physician Interpretation * * * * EXAMINATION: CHEST RADIOGRAPH (2 VIEW FRONTAL & LATERAL) CLINICAL HISTORY: Acute cough MQ: XC2_6 EXAM DATE/TIME: 06/15/2022 8:36 AM COMPARISON: 03/21/2022 RESULT: Lines, tubes, and devices: None. Lungs and pleura: No consolidation. No lung mass. No pleural effusion. No pneumothorax. Cardiomediastinal silhouette: Normal cardiomediastinal silhouette. Bones and soft tissues: Unremarkable. Mild pectus excavatum deformity DIVISION OF RADIOLOGY Provider, [facility] * * *Final Report* * * DATE OF EXAM: Jun 15 2022 8:36AM WOX 5291 - XR CHEST 2V FRONTAL/LAT / PROCEDURE REASON: Acute cough * * * * Physician Interpretation * * * * EXAMINATION: CHEST RADIOGRAPH (2 VIEW FRONTAL & LATERAL) CLINICAL HISTORY: Acute cough MQ: XC2_6 EXAM DATE/TIME: 06/15/2022 8:36 AM COMPARISON: 03/21/2022 RESULT: Lines, tubes, and devices: None. Lungs and pleura: No consolidation. No lung mass. No pleural effusion. No pneumothorax. Cardiomediastinal silhouette: Normal cardiomediastinal silhouette. Bones and soft tissues: Unremarkable. Mild pectus excavatum deformity IMPRESSION IMPRESSION: No acute radiographic abnormality. Physics Teacher: SAVITA Transcribe Date/Time: Jun 15 2022 9:00A Dictated by : OSMANY COLE MD This examination was interpreted and the report reviewed and electronically signed by: OSMANY COLE MD on Jun 15 2022 9:01AM EST [facility] Radiology Study observation (narrative) [facility] XR Chest PA and LateralOrder ed By: [facility] Provider on 06-15-2022 [facility] XR Chest PA and Lateralon IMPRESSION: Stable chronic interstitial changes. No superimposed acute radiographic abnormality. Physics Teacher: SAVITA Transcribe Date/Time: Mar 22 2022 12:09P Dictated by : SARINA BAUGH MD This examination was interpreted and the report reviewed and electronically signed by: SARINA BAUGH MD on Mar 22 2022 12:11PM EST [facility]_DO_NOT_ USE_DIVISIO N OF RADIOLOGY * * *Final Report* * * DATE OF EXAM: Mar 21 2022 6:55PM WOX 5291 - XR CHEST 2V FRONTAL/LAT / PROCEDURE REASON: Acute cough * * * * Physician Interpretation * * * * EXAMINATION: CHEST RADIOGRAPH (2 VIEW FRONTAL & LATERAL) CLINICAL HISTORY: Acute cough MQ: XC2_6 EXAM DATE/TIME: 03/21/2022 6:55 PM COMPARISON: Comparison is made to prior 2 view chest dated 11/05/2018, 29 September 2017 and 11/28/2014 RESULT: Lines, tubes, and devices: None. Lungs and pleura: Calcified residual of prior granulomatous infection as well as chronic interstitial lung changes with lingular and bibasilar fibrotic scarring is stable. There is no focal consolidation or acute pleural process/fluid. There is no vascular redistribution to suggest pulmonary edema. Cardiomediastinal silhouette: Normal cardiomediastinal silhouette. Bones/soft tissues: The bony structures are intact with mild degenerative change. No bony destructive process noted. [id number]_NOT_ USE_DIVISIO N OF RADIOLOGY Provider, [facility] - 03/22/2022 * * *Final Report* * * DATE OF EXAM: Mar 21 2022 6:55PM WOX 5291 - XR CHEST 2V FRONTAL/LAT / PROCEDURE REASON: Acute cough * * * * Physician Interpretation * * * * EXAMINATION: CHEST RADIOGRAPH (2 VIEW FRONTAL & LATERAL) CLINICAL HISTORY: Acute cough MQ: XC2_6 EXAM DATE/TIME: 03/21/2022 6:55 PM COMPARISON: Comparison is made to prior 2 view chest dated 11/05/2018, 29 September 2017 and 11/28/2014 RESULT: Lines, tubes, and devices: None. Lungs and pleura: Calcified residual of prior granulomatous infection as well as chronic interstitial lung changes with lingular and bibasilar fibrotic scarring is stable. There is no focal consolidation or acute pleural process/fluid. There is no vascular redistribution to suggest pulmonary edema. Cardiomediastinal silhouette: Normal cardiomediastinal silhouette. Bones/soft tissues: The bony structures are intact with mild degenerative change. No bony destructive process noted. IMPRESSION IMPRESSION: Stable chronic interstitial changes. No superimposed acute radiographic abnormality. Physics Teacher: PSCB Transcribe Date/Time: Mar 22 2022 12:09P Dictated by : SARINA BAUGH MD This examination was interpreted and the report reviewed and electronically signed by: SARINA BAUGH MD on Mar 22 2022 12:11PM EST [facility] XR Chest PA and LateralOrder ed By: [facility] Provider on 03-22-2022 [facility] XR Chest PA and Lateralon Radiology Study observation (narrative) [facility] Absolute lymphocyte counton 03-11-2022 Lymphocytes Auto (Unsp spec) [#/Vol] 2.35 10*3/uL 0.83-4.51 [facility] Work Phone: Basophil percentageon 2021 Basophil percentage 2.2 mg/dL 2.5-4.9 [facility] Work Phone: Basophils/100 WBC (Bld) 0.5 % 0-1 [facility] Work Phone: Chloride [Moles/Vol] 103 mmol/L 98-107 [facility] Work Phone: Cholesterol [Mass/Vol] 143 mg/dL <200 [facility] Work Phone: Comment on above: <200 mg/dL Desirable 200-240 mg/dL Borderline >240 mg/dL High Risk Eosinophils/100 WBC (Bld) 1.3 % 0-5 [facility] Work Phone: Glucose [Mass/Vol] 173 mg/dL 74-106 [facility] Work Phone: Comment on above: Fasting Glucose resu lt greater than or equal to 126 mg/dL suggests DIABETES MELLITUS per A.D.A. criteria. Neutrophils (Bld) [#/Vol] 4.7 10*3/uL 2.0-7.7 [facility] Work Phone: Neutrophils/100 WBC (Bld) 60.9 % 47-70 [facility] Work Phone: Potassium [Moles/Vol] 3.9 mmol/L 3.5-5.1 [facility] Work Phone: Sodium [Moles/Vol] 137 mmol/L 136-145 [facility] Work Phone: Triglyceride [Mass/Vol] 97 mg/dL <199 [facility] Work Phone: Comment on above: The drugs N-Acetylcy steine and Metamizole may falsely depress this assay.Serum Triglycerides Reference Interval Normal <150 mg/dL Borderline high 150 - 199 mg/dL High 200 - 499 mg/dL Very High > or = 500 mg/dL WBC (Bld) [#/Vol] 7.7 10*3/uL 4.4-11.0 [facility] Work Phone: Blood erythrocytes count (nu mber/volume)on 03-11-2022 RBC (Bld) [#/Vol] 4.19 10*6/uL 4.2-5.4 [facility] Work Phone: Blood hemoglobin measurement (mass/volume)on 03-11-2022 Hemoglobin (Bld) [Mass/Vol] 12.7 g/dL 12.0-15.0 [facility] Work Phone: Blood lymphocytes/100 leukoc yteson 03-11-2022 Lymphocytes/100 WBC (Bld) 30.4 % 19-41 [facility] Work Phone: Blood monocytes/100 leukocyt eson 03-11-2022 Monocytes/100 WBC (Bld) 6.6 % 0-10 [facility] Work Phone: Blood platelet mean volumeon 03-11-2022 Platelet mean volume (Bld) [Entitic vol] 9.9 fL 6.2-12.0 [facility] Work Phone: Determination of erythrocyte mean corpuscular volume (MCV)on 03-11-2022 MCV (RBC) [Entitic vol] 90.5 fL 81-99 [facility] Work Phone: Glucose Glucometer (BldC) [M ass/Vol]on 03-11-2022 Glucose [Mass/Vol] 280 mg/dL 74-106 [facility] Work Phone: Comment on above: MANAGEMENT OF PATIEN T CARE PER NURSING PROTOCOL Hematocrit Auto (Bld) [Volum e fraction]on 03-11-2022 Hematocrit (Bld) [Volume fraction] 37.9 % 37-47 [facility] Work Phone: Laboratory - Chemistry and C hemistry - challengeon 03-11-2022 CO2 [Moles/Vol] 27.0 mmol/L 21.0-32.0 [facility] Work Phone: Magnesium [Mass/Vol] 1.7 mg/dL 1.6-2.6 [facility] Work Phone: Urea nitrogen/Creatinine [Mass ratio] 21.0 mg/mg 10-20 [facility] Work Phone: Laboratory - Hematology and Cell countson 03-11-2022 Erythrocyte distribution width (RBC) [Entitic vol] 43.7 fL 35.1-43.9 [facility] Work Phone: Erythrocyte distribution width (RBC) [Ratio] 13.2 % 11.6-14.6 [facility] Work Phone: Immature granulocytes/100 WBC (Bld) 0.300 % 0.0-0.9 [facility] Work Phone: Comment on above: IG% - Immature Granu locytes (promyelocytes, myelocytes and metamyelocytes) > 1% indicates that a LEFT SHIFT is Present. MCH (RBC) [Entitic mass] 30.3 pg 27.0-32.0 [facility] Work Phone: Nucleated RBC/100 WBC (Bld) [Ratio] 0 % 0-5 [facility] Work Phone: MCHC Auto (RBC) [Mass/Vol]on 03-11-2022 MCHC (RBC) [Mass/Vol] 33.5 g/dL 32-36 [facility] Work Phone: No Panel Informationon 03-11 Estimated Creatinine Clearance Calc 41.05 ml/min [facility] Work Phone: Estimated GFR (MDRD) Amer 119 mL/min >60 [facility] Work Phone: Comment on above: GFR Calc Estimated GFR (MDRD) Non-Af Amer 99 mL/min >60 [facility] Work Phone: Comment on above: Non- GFR Calc Platelets bldon 03-11-2022 Platelets (Bld) [#/Vol] 219 10*3/uL 150-450 [facility] Work Phone: Serum or plasma calcium sharmin urement (mass/volume)on 03-11-2022 Calcium [Mass/Vol] 8.8 mg/dL 8.5-10.1 [facility] Work Phone: Serum or plasma cholesterol in HDL measurement (mass/volume)on 03-11-2022 Cholesterol in HDL [Mass/Vol] 57 mg/dL >40 [facility] Work Phone: Comment on above: The drugs N-Acetylcy steine and Metamizole may falsely depress this assay. Reference Range HDL <40 mg/dL Low HDL Cholesterol HDL >or= 60 mg/dL High HDL Cholesterol Serum or plasma cholesterol in VLDL measurement (mass/volume)on 03-11-2022 Cholesterol in VLDL [Mass/Vol] 19 mg/dL 5-40 [facility] Work Phone: Serum or plasma creatinine m easurement (mass/volume)on 03-11-2022 Creatinine [Mass/Vol] 0.62 mg/dL 0.55-1.02 [facility] Work Phone: Comment on above: The validity of the calculated GFR & GFRAA in patients over 70 years has not been determined. Clinical correlation is essential. Serum or plasma low density lipoprotein (LDL) cholesterol measurement (mass/volume)on 03-11-2022 Cholesterol in LDL [Mass/Vol] 67 mg/dL 0-130 [facility] Work Phone: Serum or plasma urea nitroge n measurement (mass/volume)on 03-11-2022 Urea nitrogen [Mass/Vol] 13 mg/dL 7-18 [facility] Work Phone: Thin prep Papanicolaou smear with manual screeningon 03-11-2022 Thin prep Papanicolaou smear with manual screening 7 5-15 [facility] Work Phone: Absolute lymphocyte counton 03-10-2022 Lymphocytes Auto (Unsp spec) [#/Vol] 2.05 10*3/uL 0.83-4.51 [facility] Work Phone: Basophil percentageon 2021 Basophils/100 WBC (Bld) 0.5 % 0-1 [facility] Work Phone: Chloride [Moles/Vol] 102 mmol/L 98-107 [facility] Work Phone: Eosinophils/100 WBC (Bld) 2.1 % 0-5 [facility] Work Phone: Glucose [Mass/Vol] 117 mg/dL 74-106 [facility] Work Phone: Comment on above: Fasting Glucose resu lt from 100 to 125 mg/dL suggests IMPAIRED HOMEOSTASIS per A.D.A. criteria. Neutrophils (Bld) [#/Vol] 5.0 10*3/uL 2.0-7.7 [facility] Work Phone: [phone] Neutrophils/100 WBC (Bld) 64.5 % 47-70 [facility] Work Phone: Potassium [Moles/Vol] 3.6 mmol/L 3.5-5.1 [facility] Work Phone: Comment on above: Slight Hemolysis, Re sult may be falsely increased. Sodium [Moles/Vol] 136 mmol/L 136-145 [facility] Work Phone: WBC (Bld) [#/Vol] 7.8 10*3/uL 4.4-11.0 [facility] Work Phone: Blood erythrocytes count (nu mber/volume)on 03-10-2022 RBC (Bld) [#/Vol] 4.43 10*6/uL 4.2-5.4 [facility] Work Phone: Blood hemoglobin measurement (mass/volume)on 03-10-2022 Hemoglobin (Bld) [Mass/Vol] 13.4 g/dL 12.0-15.0 [facility] Work Phone: [phone] Blood lymphocytes/100 leukoc yteson 03-10-2022 Lymphocytes/100 WBC (Bld) 26.3 % 19-41 [facility] Work Phone: [phone] Blood monocytes/100 leukocyt eson 03-10-2022 Monocytes/100 WBC (Bld) 6.3 % 0-10 [facility] Work Phone: [phone] Blood platelet mean volumeon 03-10-2022 Platelet mean volume (Bld) [Entitic vol] 9.9 fL 6.2-12.0 [facility] Work Phone: Determination of erythrocyte mean corpuscular volume (MCV)on 03-10-2022 MCV (RBC) [Entitic vol] 91.4 fL 81-99 [facility] Work Phone: [phone] Glucose Glucometer (BldC) [M ass/Vol]on 03-10-2022 Glucose [Mass/Vol] 114 mg/dL 74-106 [facility] Work Phone: Comment on above: MANAGEMENT OF PATIEN T CARE PER NURSING PROTOCOL Hematocrit Auto (Bld) [Volum e fraction]on 03-10-2022 Hematocrit (Bld) [Volume fraction] 40.5 % 37-47 [facility] Work Phone: INR in Blood by Coagulation assayon 03-10-2022 INR Coag (Bld) [Relative time] 1.0 {INR} [facility] Work Phone: Laboratory - Chemistry and C hemistry - challengeon 03-10-2022 CO2 [Moles/Vol] 30.0 mmol/L 21.0-32.0 [facility] Work Phone: Urea nitrogen/Creatinine [Mass ratio] 19.0 mg/mg 10-20 [facility] Work Phone: Laboratory - Coagulationon 0 03-10-2022 aPTT Coag (Bld) [Time] 27.0 s 24.1-36.2 [facility] Work Phone: PT Coag (PPP) [Time] 12.9 s 11.7-14.9 [facility] Work Phone: Laboratory - Hematology and Cell countson 03-10-2022 Erythrocyte distribution width (RBC) [Entitic vol] 44.5 fL 35.1-43.9 [facility] Work Phone: Erythrocyte distribution width (RBC) [Ratio] 13.3 % 11.6-14.6 [facility] Work Phone: Immature granulocytes/100 WBC (Bld) 0.300 % 0.0-0.9 [facility] Work Phone: Comment on above: IG% - Immature Granu locytes (promyelocytes, myelocytes and metamyelocytes) > 1% indicates that a LEFT SHIFT is Present. MCH (RBC) [Entitic mass] 30.2 pg 27.0-32.0 [facility] Work Phone: Nucleated RBC/100 WBC (Bld) [Ratio] 0 % 0-5 [facility] Work Phone: MCHC Auto (RBC) [Mass/Vol]on 03-10-2022 MCHC (RBC) [Mass/Vol] 33.1 g/dL 32-36 [facility] Work Phone: No Panel Informationon 03-10 Estimated Creatinine Clearance Calc 41.05 ml/min [facility] Work Phone: Estimated GFR (MDRD) Amer 90 mL/min >60 [facility] Work Phone: Comment on above: GFR Calc Estimated GFR (MDRD) Non-Af Amer 75 mL/min >60 [facility] Work Phone: Comment on above: Non- GFR Calc Thyroid Stimulating Hormone (TSH) 0.51 uIU/mL 0.358-3.74 [facility] Work Phone: Troponin I High Sensitivity 8 pg/mL 3.0-54.0 [facility] Work Phone: Comment on above: Please Note: New Kami t Units and Gender Specific Reference Ranges. For more information see Policy Stat Procedure [place] High Sensitivity Troponin (TNIH) and attachments. Platelets bldon 03-10-2022 Platelets (Bld) [#/Vol] 212 10*3/uL 150-450 [facility] Work Phone: Serum or plasma calcium sharmin urement (mass/volume)on 03-10-2022 Calcium [Mass/Vol] 9.0 mg/dL 8.5-10.1 [facility] Work Phone: Serum or plasma creatinine m easurement (mass/volume)on 03-10-2022 Creatinine [Mass/Vol] 0.79 mg/dL 0.55-1.02 [facility] Work Phone: Comment on above: The validity of the calculated GFR & GFRAA in patients over 70 years has not been determined. Clinical correlation is essential. Serum or plasma urea nitroge n measurement (mass/volume)on 03-10-2022 Urea nitrogen [Mass/Vol] 15 mg/dL 7-18 [facility] Work Phone: Thin prep Papanicolaou smear with manual screeningon 03-10-2022 Thin prep Papanicolaou smear with manual screening 4 5-15 [facility] Work Phone: Whole blood hemoglobin A1c/t otal hemoglobin ratio (mass fraction)on 03-10-2022 HbA1c (Bld) [Mass fraction] 6.7 % 3.8-5.6 [facility] Work Phone: Comment on above: Normal < 5.7 % Predi abetic 5.7 - 6.4 % Diabetic >or= 6.5 % Please note range changes. AFB Cult and Stainon 018 AFB Cult and Stain Smear Result - No ac id fast bacilli seen by fluorochrome stain Culture Result - No Acid Fast Bacilli isolated after 46 days [facility] Comment on above: Performed By: #### A FC ####[facility] [place], [place] [phone] BRIEF OP NOTon 10-27-2017 BRIEF OP NOT HNO ID: [id number] thor: Yashira Coyne: Pulmonary DiseaseAuthor Type: PhysicianType: Brief Op NoteFiled: 10/27/2017 11:58 AMNote Text:10/27/2017Shannon Leija [id number] bronchoscopy with endobronchial biopsy of the right middle lobebronchus and bronchial washing of the entire tracheobronchial tree.Pre-procedure Dx: Chronic cough. Follicular bronchitis.Post-procedure Dx: Same.Medications: Oxygen, Xylocaine topical, Midazolam, Fentanyl.Findings: Streaky secretions on posterior wall of the nasopharynx. Milddiffuse erythema of the tracheobronchial tree.Accomplished with ease.Tolerated well.Complications: No blood loss, chest pain, hypoxemia.Specimens: RML endobronchial biopsy for histopathology. Bronchial washingfor microbiology analysis.Full note in Provation.Yashira Giordano MD, [facility] Medical Office Building [place] [address]P: [phone]: [phone] [facility] Fungal Cultureon 10-27-2017 Fungal Culture Sp. Request/Comment: - Specimen received in sterile container. Culture Result - No Fungus isolated after 32 days [facility] Comment on above: Performed By: #### F CUL ####[facility] [place], [place] [phone] Fungal Smearon 10-27-2017 Fungal Smear Sp. Request/Comment: - Specimen received in sterile container. Smear Result - No fungus seen. [facility] Comment on above: Performed By: #### F UNGSM ####[place] [address] [place], [place] [phone] HISTORY PHYSICALon 8 HISTORY PHYSICAL HNO ID: [id number] thor: Yashira GiordanoService: Pulmonary DiseaseAuthor Type: PhysicianType: HANDPFiled: 10/27/2017 10:40 AMNote Text:UPDATED HISTORY AND PHYSICAL EXAMINATIONSERVICE DATE: 10/27/2017SERVICE TIME: 10:38 AM.PHYSICAL EXAM MUST BE COMPLETED ON ADMISSIONThe History and Physical (completed in the past 30 days) has been reviewedand the patient has been examined. The contents accurately reflect thepatient's condition with the following additions or revisions since theHANDP was completed.Examination indicates no changes.This HANDP can be found in the Electronic Medical Record dated 09/29/2017.SIGNATURE: Yashira Giordano MD PATIENT NAME: Shannon LeungsDATE: October 27, 2017 : 10:39 AM PAGER: [phone] [facility] NURSING PROGon 10-27-2017 NURSING PROG HNO ID: [id number] thor: Darleen (Rn) ARUNA Daviservice: NursingAuthor Type: Registered NurseType: Nursing Progress NoteFiled: 10/27/2017 11:05 AMNote Text: Nursing Progress NotePatient Name: Shannon MartinezRN: [id number] [facility] pt ready for OR, call light in reach, pt ok for friend to stay in waitingroom a this time, Needs consent signed prior to ORThis note was completed by: Darleen Davis RN [facility] OPERATIVE NOon 10-27-2017 OPERATIVE NO HNO ID: [id number] thor: Yashira Coyne: Pulmonary DiseaseAuthor Type: PhysicianType: Operative ReportFiled: 10/27/2017 11:58 AMNote Text:10/27/2017Shannon Leija [id number] bronchoscopy with endobronchial biopsy of the right middle lobebronchus and bronchial washing of the entire tracheobronchial tree.Pre-procedure Dx: Chronic cough. Follicular bronchitis.Post-procedure Dx: Same.Medications: Oxygen, Xylocaine topical, Midazolam, Fentanyl.Findings: Streaky secretions on posterior wall of the nasopharynx. Milddiffuse erythema of the tracheobronchial tree.Accomplished with ease.Tolerated well.Complications: No blood loss, chest pain, hypoxemia.Specimens: RML endobronchial biopsy for histopathology. Bronchial washingfor microbiology analysis.Full note in Provation.Yashira Giordano MD, [facility] Medical Office Building [address] [address]K: [phone]: [phone] [facility] PROCEDUREon 10-27-2017 PROCEDURE HNO ID: [id number] thor: Yashira Coyne: Pulmonary DiseaseAuthor Type: PhysicianType: ProceduresFiled: 10/27/2017 11:58 AMNote Text:10/27/2017Shannon Leija [id number] bronchoscopy with endobronchial biopsy of the right middle lobebronchus and bronchial washing of the entire tracheobronchial tree.Pre-procedure Dx: Chronic cough. Follicular bronchitis.Post-procedure Dx: Same.Medications: Oxygen, Xylocaine topical, Midazolam, Fentanyl.Findings: Streaky secretions on posterior wall of the nasopharynx. Milddiffuse erythema of the tracheobronchial tree.Accomplished with ease.Tolerated well.Complications: No blood loss, chest pain, hypoxemia.Specimens: RML endobronchial biopsy for histopathology. Bronchial washingfor microbiology analysis.Full note in Provation.Yashira Giordano MD, [facility] Medical Office Building [address] [address]I: [phone]: [phone] [facility] PT EDon 10-27-2017 PT ED HNO ID: [id number] thor: Michael GambinoRn) ARUNA Carlisleervice: NursingAuthor Type: Registered NurseType: Patient EducationFiled: 10/27/2017 1:38 PMNote Text:POST OP LEARNING RESPONSEINSTRUCTION PROVIDED TO: PatientMETHOD OF INSTRUCTION: Written instruction - handoutsVerbal instructionPATIENT / FAMILY RESPONSE: Verbalizes understanding of: POST-PROCEDUREINSTRUCTIONS- Correct actions to take to reduce post procedurecomplicationsFOLLO W-UP PLAN: Patient instructed to call with any further issuesSUPPLEMENTAL MATERIAL: NoneREFERRAL (RECOMMENDATION): NoneElectronically Signed By: Michael Carlisle RN [facility] PT ED HNO ID: [id number] thor: Darleen Powell) ARUNA Daviservice: NursingAuthor Type: Registered NurseType: Patient EducationFiled: 10/27/2017 11:08 AMNote Text:PRE OP LEARNING ASSESSMENTPROCEDURE/SURGERY : SURGERY: BronchoscopyREADINESS TO LEARNCOGNITIVE ABILITY: Alert and orientedMOTIVATION TO LEARN: EagerFAMILY SUPPORT: friend out in waiting roomPATIENT LEARNS BEST BY: Written Instruction - Hand-outsVerbal InstructionFACTORS AFFECTING LEARNING: NonePHYSICAL LIMITATIONS AFFECTING LEARNING: NoneElectronically Signed By: Darleen Davis RN In Department[facility] Respiratory Cult/Stainon Respiratory Cult/Stain Smear Result - Rare Gram positive cocci --> ABNORMAL ALERT Few Polymorphonuclear leukocytes Few Mononuclear cells Culture Result - Few Normal respiratory stewart present Critically abnormal [facility] Comment on above: Performed By: #### R CULST ####[facility] [place], [place] [phone] SURGICAL PATHOLOGYon 018 SURGICAL PATHOLOGY Specimen originated from [facility] #: [id number] Physician: Yashira Giordano M.D. FIN AL DIAGNOSISLung, right middle lobe bronchus, biopsy - Fragments of bronchialmucosa/bronchial wall with no significant pathologic changes. (Seecomment). COMMENTThere is no evidence of significant inflammation or follicularbronchiolitis in this sample. No granulomas or malignant cells areidentified. Denny Forman M.D.(Electronic Signature) SPEC IMEN SUBMITTEDA: L BRONCHUS CLINICAL DATAFOLLICULAR BRONCHITIS ON 2010 BIOPSY. REFRACTORY COUGH., LMP: POSTMENOPAUSAL.GROSS DESCRIPTIONA. Received in formalin are multiple pieces of red-brown, soft tissueaggregating to 0.5 x 0.1 x 0.1 cm. Totally submitted in one cassette.Gross examination performed at [facility], [address] [place], [place] [id number] 10/27/2017 3:27:21 PMPatient ID #: [id number] of Report: 10/30/2017Date of Procedure: 10/27/2017Date of Receipt: 10/27/2017Submitted by: Yashira Giordano M.D.Location: MEENDDiagnostic interpretation performed at [place] [address]. Normal [facility] Comment on above: Performed By: #### P ATHS ####[facility] [address] [phone] HOSPon 10-18-2017 HOSP Patient:Madi Leija AMRN: Height:5' 4(1.626 m)Weight:162 lb (73.483 kg)Outpatient Medications as of 10/27/17:fluticasone (FLONASE) 50 mcg/actuation nasal sprayguaiFENesin (MUCINEX) 600 mg 12 hr tabletblood sugar diagnostic (ONETOUCH ULTRA TEST) test stripbenzonatate (TESSALON PERLE) 100 mg capsuletraZODone (DESYREL) 50 mg tabletmetFORMIN (GLUCOPHAGE) 1,000 mg tabletfluticasone (FLOVENT HFA) 110 mcg/actuation inhalerCOMPOUNDED PRESCRIPTIONCOMPOUNDED PRESCRIPTIONlevothyroxine (SYNTHROID) 125 mcg tabletsimvastatin (ZOCOR) 10 mg tabletAspirin 81 mg PgoUljpcayiolhfy-Talumcsg-W utein (CENTRUM SILVER) ORAL Tabblood sugar diagnostic (ONE TOUCH ULTRA TEST) Misc test stripCALCIUM 600 600 MG TABAdmission/Clinic Administered Medications as of 10/27/17:NaCl 0.9% iv infusionProblem List:Diverticulosis of colon (without mention of hemorrhage) [K57.30]Internal hemorrhoids without mention of complication [K64.8]Essential hypertension [I10]Hypothyroidism [E03.9]Other joint derangement, not elsewhere classified, lower leg [M23.8X9]Diabetes mellitus type 2, controlled, without complications (HCC) [E11.9]Hyperlipidemia [E78.5]Shoulder abscess [L02.419]Abscess [L02.91]Allergies:Sulfa (Sulfonamide Antibiotics)Date Verified: 10/27/17Lab ValuesNo results within the last 30 days for the following basenames: K,HCTProgress Notes ([facility]):Charisse Lagos LPN 10/13/2017 11:07 AM SignedPatient phones requesting refills as follows:Pending Prescriptions Disp Refills FLUTICASONE 50 MCG/ACTUATION NASAL SPRAY,SUSPENSION 3 Bottle 3 Sig: Use 1 [place] in each nostril daily at bedtime. Please review and advise.Charisse Lagos LPNProgress Notes ([facility]):Laura Saleh LPN 10/09/2017 12:28 PM SignedPatient returning call in regards to the my chart message. States she has seenDr. Rodriguez in the past for ear problems. [place] willing to go to [place] or where yourecommend.Yashira Giordano MD 10/13/2017 5:10 PM SignedPatient familiar to me.I can proceed with outpatient Flexible bronchoscopy in [place] 10/25 or 10/27.Order placed.Yashira Giordano MD, [facility] Medical Office Building [address] [address]B: [phone]: [phone] Mack [facility] 10/18/2017 10:43 AM SignedSpoke with patient, she has been scheduled for 10/27 at 12:00 as requested. Normal [facility] Vital Signs Date Time Vital Sign Value Performing Clinician Facility 03-07-2025 07:02-0400 Body mass index (BMI) [Ratio] 26.13 kg/m2 Griselda Older OUTSOLE PARAFFINER.PANEL INSTRUMENT REPAIRER Work Phone: [facility] 03-07-2025 07:02-0400 Body weight 71.22 kg Griselda Older OUTSOLE PARAFFINER.PANEL INSTRUMENT REPAIRER Work Phone: [facility] 03-07-2025 07:02-0400 Diastolic blood pressure 60 mm[Hg] Griselda Older OUTSOLE PARAFFINER.PANEL INSTRUMENT REPAIRER Work Phone: [facility] 03-07-2025 07:02-0400 Heart rate 84 /min Griselda Older OUTSOLE PARAFFINER.PANEL INSTRUMENT REPAIRER Work Phone: [facility] 03-07-2025 07:02-0400 Respiratory rate 16 /min Griselda Older OUTSOLE PARAFFINER.PANEL INSTRUMENT REPAIRER Work Phone: [facility] 03-07-2025 07:02-0400 SaO2% (BldA) [Mass fraction] 97 % Griselda Older OUTSOLE PARAFFINER.PANEL INSTRUMENT REPAIRER Work Phone: [facility] 03-07-2025 07:02-0400 Systolic blood pressure 122 mm[Hg] Griselda Older OUTSOLE PARAFFINER.PANEL INSTRUMENT REPAIRER Work Phone: [facility] 02-07-2025 07:03-0400 Body mass index (BMI) [Ratio] 26.46 kg/m2 Griselda Older OUTSOLE PARAFFINER.PANEL INSTRUMENT REPAIRER Work Phone: [facility] 02-07-2025 07:03-0400 Body weight 72.12 kg Griselda Older OUTSOLE PARAFFINER.PANEL INSTRUMENT REPAIRER Work Phone: [facility] 02-07-2025 07:03-0400 Diastolic blood pressure 64 mm[Hg] Griselda Older OUTSOLE PARAFFINER.PANEL INSTRUMENT REPAIRER Work Phone: [facility] 02-07-2025 07:03-0400 Heart rate 74 /min Griselda Older OUTSOLE PARAFFINER.PANEL INSTRUMENT REPAIRER Work Phone: [facility] 02-07-2025 07:03-0400 Respiratory rate 16 /min Griselda Older OUTSOLE PARAFFINER.PANEL INSTRUMENT REPAIRER Work Phone: [facility] 02-07-2025 07:03-0400 SaO2% (BldA) [Mass fraction] 98 % Griselda Older OUTSOLE PARAFFINER.PANEL INSTRUMENT REPAIRER Work Phone: [facility] 02-07-2025 07:03-0400 Systolic blood pressure 136 mm[Hg] Griselda Older OUTSOLE PARAFFINER.PANEL INSTRUMENT REPAIRER Work Phone: [facility] 01-10-2025 07:10-0400 Body mass index (BMI) [Ratio] 26.29 kg/m2 Griselda Older OUTSOLE PARAFFINER.PANEL INSTRUMENT REPAIRER Work Phone: [facility] 01-10-2025 07:10-0400 Body weight 71.67 kg Griselda Older OUTSOLE PARAFFINER.PANEL INSTRUMENT REPAIRER Work Phone: [facility] 01-10-2025 07:10-0400 Diastolic blood pressure 68 mm[Hg] Griselda Older OUTSOLE PARAFFINER.PANEL INSTRUMENT REPAIRER Work Phone: [facility] 01-10-2025 07:10-0400 Heart rate 78 /min Griselda Older OUTSOLE PARAFFINER.PANEL INSTRUMENT REPAIRER Work Phone: [facility] 01-10-2025 07:10-0400 Respiratory rate 16 /min Griselda Older OUTSOLE PARAFFINER.PANEL INSTRUMENT REPAIRER Work Phone: [facility] 01-10-2025 07:10-0400 SaO2% (BldA) [Mass fraction] 99 % Griselda Older OUTSOLE PARAFFINER.PANEL INSTRUMENT REPAIRER Work Phone: [facility] 01-10-2025 07:10-0400 Systolic blood pressure 130 mm[Hg] Griselda Older OUTSOLE PARAFFINER.PANEL INSTRUMENT REPAIRER Work Phone: [facility] 12-13-2024 07:56-0400 Body mass index (BMI) [Ratio] 25.79 kg/m2 Dorie Click OUTSOLE PARAFFINER.PANEL INSTRUMENT REPAIRER Work Phone: [facility] 12-13-2024 07:56-0400 Body weight 70.31 kg Dorie Click OUTSOLE PARAFFINER.PANEL INSTRUMENT REPAIRER Work Phone: [facility] 12-13-2024 07:56-0400 Diastolic blood pressure 64 mm[Hg] Dorie Click OUTSOLE PARAFFINER.PANEL INSTRUMENT REPAIRER Work Phone: [facility] 12-13-2024 07:56-0400 Heart rate 82 /min Dorie Click OUTSOLE PARAFFINER.PANEL INSTRUMENT REPAIRER Work Phone: [facility] 12-13-2024 07:56-0400 Respiratory rate 17 /min Dorie Click OUTSOLE PARAFFINER.PANEL INSTRUMENT REPAIRER Work Phone: [facility] 12-13-2024 07:56-0400 SaO2% (BldA) [Mass fraction] 99 % Dorie Click OUTSOLE PARAFFINER.PANEL INSTRUMENT REPAIRER Work Phone: [facility] 12-13-2024 07:56-0400 Systolic blood pressure 130 mm[Hg] Dorie Click OUTSOLE PARAFFINER.PANEL INSTRUMENT REPAIRER Work Phone: [facility] 10-11-2024 08:20-0500 Diastolic blood pressure 68 mm[Hg] Griselda Older OUTSOLE PARAFFINER.PANEL INSTRUMENT REPAIRER Work Phone: [facility] Comment on above: BP [facility] 10-11-2024 08:20-0500 Systolic blood pressure 132 mm[Hg] Griselda Older OUTSOLE PARAFFINER.PANEL INSTRUMENT REPAIRER Work Phone: [facility] Comment on above: BP [facility] 10-11-2024 07:55-0500 Body mass index (BMI) [Ratio] 26.13 kg/m2 Griselda Older OUTSOLE PARAFFINER.PANEL INSTRUMENT REPAIRER Work Phone: [facility] 10-11-2024 07:55-0500 Body weight 71.22 kg Griselda Older OUTSOLE PARAFFINER.PANEL INSTRUMENT REPAIRER Work Phone: [facility] 10-11-2024 07:55-0500 Heart rate 84 /min Griselda Older OUTSOLE PARAFFINER.PANEL INSTRUMENT REPAIRER Work Phone: [facility] 10-11-2024 07:55-0500 Respiratory rate 16 /min Griselda Older OUTSOLE PARAFFINER.PANEL INSTRUMENT REPAIRER Work Phone: [facility] 10-11-2024 07:55-0500 SaO2% (BldA) [Mass fraction] 98 % Griselda Older OUTSOLE PARAFFINER.PANEL INSTRUMENT REPAIRER Work Phone: [facility] 2024 07:22-0400 Body mass index (BMI) [Ratio] 26.13 kg/m2 Griselda Older OUTSOLE PARAFFINER.PANEL INSTRUMENT REPAIRER Work Phone: [facility] 2024 07:22-0400 Body weight 71.22 kg Griselda Older OUTSOLE PARAFFINER.PANEL INSTRUMENT REPAIRER Work Phone: [facility] Comment on above: shoes on 2024 07:22-0400 Diastolic blood pressure 68 mm[Hg] Griselda Older OUTSOLE PARAFFINER.PANEL INSTRUMENT REPAIRER Work Phone: [facility] 2024 07:22-0400 Heart rate 80 /min Griselda Older OUTSOLE PARAFFINER.PANEL INSTRUMENT REPAIRER Work Phone: [facility] 2024 07:22-0400 Respiratory rate 16 /min Griselda Older OUTSOLE PARAFFINER.PANEL INSTRUMENT REPAIRER Work Phone: [facility] 2024 07:22-0400 SaO2% (BldA) [Mass fraction] 97 % Griselda Older OUTSOLE PARAFFINER.PANEL INSTRUMENT REPAIRER Work Phone: [facility] 2024 07:22-0400 Systolic blood pressure 118 mm[Hg] Griselda Older OUTSOLE PARAFFINER.PANEL INSTRUMENT REPAIRER Work Phone: [facility] 06-14-2024 08:51-0400 Body mass index (BMI) [Ratio] 26.29 kg/m2 Dorie Click OUTSOLE PARAFFINER.PANEL INSTRUMENT REPAIRER Work Phone: [facility] 06-14-2024 08:51-0400 Body weight 71.67 kg Dorie Click OUTSOLE PARAFFINER.PANEL INSTRUMENT REPAIRER Work Phone: [facility] 03-21-2024 07:20-0400 Body mass index (BMI) [Ratio] 25.29 kg/m2 Griselda Older OUTSOLE PARAFFINER.PANEL INSTRUMENT REPAIRER Work Phone: [facility] 03-21-2024 07:20-0400 Body weight 68.95 kg Griselda Older OUTSOLE PARAFFINER.PANEL INSTRUMENT REPAIRER Work Phone: [facility] 03-21-2024 07:20-0400 Diastolic blood pressure 68 mm[Hg] Griselda Older OUTSOLE PARAFFINER.PANEL INSTRUMENT REPAIRER Work Phone: [facility] 03-21-2024 07:20-0400 Heart rate 99 /min Griselda Older OUTSOLE PARAFFINER.PANEL INSTRUMENT REPAIRER Work Phone: [facility] 03-21-2024 07:20-0400 Respiratory rate 16 /min Griselda Older OUTSOLE PARAFFINER.PANEL INSTRUMENT REPAIRER Work Phone: [facility] 03-21-2024 07:20-0400 SaO2% (BldA) [Mass fraction] 99 % Griselda Older OUTSOLE PARAFFINER.PANEL INSTRUMENT REPAIRER Work Phone: [facility] 03-21-2024 07:20-0400 Systolic blood pressure 134 mm[Hg] Griselda OUTSOLE PARAFFINER.PANEL INSTRUMENT REPAIRER Work Phone: [facility] 02-22-2024 15:20-0400 Body mass index (BMI) [Ratio] 26.41 kg/m2 Darleen Orr OUTSOLE PARAFFINER.PANEL INSTRUMENT REPAIRER Work Phone: [facility] 02-22-2024 15:20-0400 Body temperature 97.81 [degF] Darleen Orr OUTSOLE PARAFFINER.PANEL INSTRUMENT REPAIRER Work Phone: [facility] 02-22-2024 15:20-0400 Body weight 72 kg Darleen Orr OUTSOLE PARAFFINER.PANEL INSTRUMENT REPAIRER Work Phone: [facility] 02-22-2024 15:20-0400 Diastolic blood pressure 79 mm[Hg] Darleen Orr OUTSOLE PARAFFINER.PANEL INSTRUMENT REPAIRER Work Phone: [facility] 02-22-2024 15:20-0400 Heart rate 78 /min Darleen Orr OUTSOLE PARAFFINER.PANEL INSTRUMENT REPAIRER Work Phone: [facility] 02-22-2024 15:20-0400 Respiratory rate 20 /min Darleen Orr OUTSOLE PARAFFINER.PANEL INSTRUMENT REPAIRER Work Phone: [facility] 02-22-2024 15:20-0400 SaO2% (BldA) [Mass fraction] 98 % Darleen Orr OUTSOLE PARAFFINER.PANEL INSTRUMENT REPAIRER Work Phone: [facility] 02-22-2024 15:20-0400 Systolic blood pressure 169 mm[Hg] Darleen Orr OUTSOLE PARAFFINER.PANEL INSTRUMENT REPAIRER Work Phone: [facility] 12-15-2023 07:20-0400 Body weight 72.12 kg Griselda Older OUTSOLE PARAFFINER.PANEL INSTRUMENT REPAIRER Work Phone: [facility] 12-15-2023 07:20-0400 Diastolic blood pressure 70 mm[Hg] Griselda Older OUTSOLE PARAFFINER.PANEL INSTRUMENT REPAIRER Work Phone: [facility] 12-15-2023 07:20-0400 Heart rate 72 /min Griselda Older OUTSOLE PARAFFINER.PANEL INSTRUMENT REPAIRER Work Phone: [facility] 12-15-2023 07:20-0400 Respiratory rate 16 /min Griselda Older OUTSOLE PARAFFINER.PANEL INSTRUMENT REPAIRER Work Phone: [facility] 12-15-2023 07:20-0400 SaO2% (BldA) [Mass fraction] 98 % Griselda Older OUTSOLE PARAFFINER.PANEL INSTRUMENT REPAIRER Work Phone: [facility] 12-15-2023 07:20-0400 Systolic blood pressure 128 mm[Hg] Griselda Older OUTSOLE PARAFFINER.PANEL INSTRUMENT REPAIRER Work Phone: [facility] 11-28-2023 09:58-0400 Body weight 73.12 kg Pamela Aranda MD Work Phone: [facility] 11-28-2023 09:58-0400 Diastolic blood pressure 52 mm[Hg] Pamela Aranda MD Work Phone: [facility] 11-28-2023 09:58-0400 Heart rate 73 /min Pamela Aranda MD Work Phone: [facility] 11-28-2023 09:58-0400 Respiratory rate 14 /min Pamela Aranda MD Work Phone: [facility] 11-28-2023 09:58-0400 SaO2% (BldA) [Mass fraction] 96 % Pamela Aranda MD Work Phone: [facility] 11-28-2023 09:58-0400 Systolic blood pressure 116 mm[Hg] Pamela Aranda MD Work Phone: [facility] 05-29-2023 10:23-0400 Body height 165.1 cm Pamela Aranda MD Work Phone: [facility] 05-29-2023 10:23-0400 Body weight 73.48 kg Pamela Aranda MD Work Phone: [facility] 05-29-2023 10:23-0400 Diastolic blood pressure 60 mm[Hg] Pamela Aranda MD Work Phone: [facility] 05-29-2023 10:23-0400 Heart rate 76 /min Pamela Aranda MD Work Phone: [facility] 05-29-2023 10:23-0400 Respiratory rate 21 /min Pamela Aranda MD Work Phone: [facility] 05-29-2023 10:23-0400 SaO2% (BldA) [Mass fraction] 97 % Pamela Aranda MD Work Phone: [facility] 05-29-2023 10:23-0400 Systolic blood pressure 132 mm[Hg] Pamela Aranda MD Work Phone: [facility] 05-19-2023 08:41-0400 Body weight 71.67 kg Griselda Older OUTSOLE PARAFFINER.PANEL INSTRUMENT REPAIRER Work Phone: [facility] 05-19-2023 08:41-0400 Diastolic blood pressure 68 mm[Hg] Griselda Older OUTSOLE PARAFFINER.PANEL INSTRUMENT REPAIRER Work Phone: [facility] 05-19-2023 08:41-0400 Heart rate 78 /min Griselda Older OUTSOLE PARAFFINER.PANEL INSTRUMENT REPAIRER Work Phone: [facility] 05-19-2023 08:41-0400 Respiratory rate 16 /min Griselda Older OUTSOLE PARAFFINER.PANEL INSTRUMENT REPAIRER Work Phone: [facility] 05-19-2023 08:41-0400 SaO2% (BldA) [Mass fraction] 98 % Griselda Older OUTSOLE PARAFFINER.PANEL INSTRUMENT REPAIRER Work Phone: [facility] 05-19-2023 08:41-0400 Systolic blood pressure 128 mm[Hg] Griselda Older OUTSOLE PARAFFINER.PANEL INSTRUMENT REPAIRER Work Phone: [facility] 05-17-2023 11:29-0400 Body height 162.[address] Darin Alonzo Work Phone: [facility] 05-17-2023 11:29-0400 Body weight 72.[address] Darin Alonzo Work Phone: [facility] 04-11-2023 12:07-0400 Body height 162.[address] Darin Alonzo Work Phone: [facility] 04-11-2023 12:07-0400 Body weight 74.[address] Darin Alonzo Work Phone: [facility] 04-10-2023 07:57-0400 Body temperature 98.01 [degF] Griselda Older OUTSOLE PARAFFINER.PANEL INSTRUMENT REPAIRER Work Phone: [facility] 04-10-2023 07:57-0400 Body weight 73.48 kg Griselda Older OUTSOLE PARAFFINER.PANEL INSTRUMENT REPAIRER Work Phone: [facility] 04-10-2023 07:57-0400 Diastolic blood pressure 70 mm[Hg] Griselda Older OUTSOLE PARAFFINER.PANEL INSTRUMENT REPAIRER Work Phone: [facility] 04-10-2023 07:57-0400 Heart rate 76 /min Griselda Older OUTSOLE PARAFFINER.PANEL INSTRUMENT REPAIRER Work Phone: [facility] 04-10-2023 07:57-0400 Respiratory rate 16 /min Griselda Older OUTSOLE PARAFFINER.PANEL INSTRUMENT REPAIRER Work Phone: [facility] 04-10-2023 07:57-0400 SaO2% (BldA) [Mass fraction] 100 % Griselda Older OUTSOLE PARAFFINER.PANEL INSTRUMENT REPAIRER Work Phone: [facility] 04-10-2023 07:57-0400 Systolic blood pressure 142 mm[Hg] Griselda Older OUTSOLE PARAFFINER.PANEL INSTRUMENT REPAIRER Work Phone: [facility] 03-21-2023 11:30-0400 Body temperature 98.2 [degF] Dr. Darin Alonzo Work Phone: [facility] 03-21-2023 11:30-0400 Body weight 73.[address] Darin Alonzo Work Phone: 2(463)[phone] [place] [address] 03-21-2023 11:30-0400 Diastolic blood pressure 73 mm[Hg] Dr. Darin Alonzo Work Phone: 6(305)[phone] [place] [address] 03-21-2023 11:30-0400 Heart rate 73 /min Dr. Darin Alonzo Work Phone: 2(971)[phone] [place] [address] 03-21-2023 11:30-0400 Respiratory rate 16 /min Dr. Darin Alonzo Work Phone: 4(415)[phone] [place] [address] 03-21-2023 11:30-0400 SaO2% (BldA) [Mass fraction] 99 % Dr. Darin Alonzo Work Phone: 5(494)[phone] [place] [address] 03-21-2023 11:30-0400 Systolic blood pressure 151 mm[Hg] Dr. Darin Alonzo Work Phone: [facility] 03-01-2023 11:15-0400 Body height 162.6 cm Darin Alonzo MD Work Phone: [facility] 03-01-2023 11:15-0400 Body temperature 97 [degF] Darin Alonzo MD Work Phone: [facility] 03-01-2023 11:15-0400 Body weight 73.03 kg Darin Alonzo MD Work Phone: [facility] 03-01-2023 11:15-0400 Diastolic blood pressure 62 mm[Hg] Darin Alonzo MD Work Phone: [facility] 03-01-2023 11:15-0400 Heart rate 84 /min Darin Alonzo MD Work Phone: [facility] 03-01-2023 11:15-0400 Respiratory rate 12 /min Darin Alonzo MD Work Phone: [facility] 03-01-2023 11:15-0400 SaO2% (BldA) [Mass fraction] 97 % Darin Alonzo MD Work Phone: [facility] 03-01-2023 11:15-0400 Systolic blood pressure 136 mm[Hg] Darin Alonzo MD Work Phone: [facility] 11-25-2022 09:52-0400 Body height 162.6 cm Pamela Aranda MD Work Phone: [facility] 11-25-2022 09:52-0400 Body weight 73.48 kg Pamela Aranda MD Work Phone: [facility] 11-25-2022 09:52-0400 Diastolic blood pressure 68 mm[Hg] Pamela Aranda MD Work Phone: [facility] 11-25-2022 09:52-0400 Heart rate 82 /min Pamela Aranda MD Work Phone: [facility] 11-25-2022 09:52-0400 Respiratory rate 12 /min Pamela Aranda MD Work Phone: [facility] 11-25-2022 09:52-0400 SaO2% (BldA) [Mass fraction] 96 % Pamela Aranda MD Work Phone: [facility] 11-25-2022 09:52-0400 Systolic blood pressure 132 mm[Hg] Pamela Aranda MD Work Phone: [facility] 11-25-2022 09:41-0400 Body height 162.6 cm Pul Ws Work Phone: [facility] 11-25-2022 09:41-0400 Body weight 73.48 kg Pulm Wstr Work Phone: [facility] 11-25-2022 09:41-0400 Heart rate 82 /min Pulm Wstr Work Phone: [facility] 11-25-2022 09:41-0400 Respiratory rate 12 /min Pulm Wstr Work Phone: [facility] 11-25-2022 09:41-0400 SaO2% (BldA) [Mass fraction] 96 % Pulm Wstr Work Phone: [facility] 11-01-2022 07:57-0500 Body height 162.6 cm Darin Alonzo MD Work Phone: [facility] 11-01-2022 07:57-0500 Body temperature 97.39 [degF] Darin Alonzo MD Work Phone: [facility] 11-01-2022 07:57-0500 Body weight 73.48 kg Darin Alonzo MD Work Phone: [facility] 11-01-2022 07:57-0500 Diastolic blood pressure 64 mm[Hg] Darin Alonzo MD Work Phone: [facility] 11-01-2022 07:57-0500 Heart rate 82 /min Darin Alonzo MD Work Phone: [facility] 11-01-2022 07:57-0500 Respiratory rate 12 /min Darin Alonzo MD Work Phone: [facility] 11-01-2022 07:57-0500 SaO2% (BldA) [Mass fraction] 97 % Darin Alonzo MD Work Phone: [facility] 11-01-2022 07:57-0500 Systolic blood pressure 130 mm[Hg] Darin Alonzo MD Work Phone: [facility] 08-01-2022 08:37-0500 Body height 162.6 cm Darin Alonzo MD Work Phone: [facility] 08-01-2022 08:37-0500 Body temperature 97.7 [degF] Darin Alonzo MD Work Phone: [facility] 08-01-2022 08:37-0500 Body weight 74.39 kg Darin Alonzo MD Work Phone: [facility] 08-01-2022 08:37-0500 Diastolic blood pressure 62 mm[Hg] Darin Alonzo MD Work Phone: [facility] 08-01-2022 08:37-0500 Heart rate 83 /min Darin Alonzo MD Work Phone: [facility] 08-01-2022 08:37-0500 Respiratory rate 12 /min Darin Alonzo MD Work Phone: [facility] 08-01-2022 08:37-0500 SaO2% (BldA) [Mass fraction] 99 % Darin Alonzo MD Work Phone: [facility] 08-01-2022 08:37-0500 Systolic blood pressure 130 mm[Hg] Darin Alonzo MD Work Phone: [facility] 07-15-2022 08:57-0400 Body weight 74.84 kg Christy Clay PA-C Work Phone: [facility] 07-15-2022 08:57-0400 Diastolic blood pressure 80 mm[Hg] Christy Clay PA-C Work Phone: [facility] 07-15-2022 08:57-0400 Heart rate 81 /min Christy Clay PA-C Work Phone: [facility] 07-15-2022 08:57-0400 Respiratory rate 15 /min Christy Clay PA-C Work Phone: [facility] 07-15-2022 08:57-0400 SaO2% (BldA) [Mass fraction] 99 % Christy Clay PA-C Work Phone: [facility] 07-15-2022 08:57-0400 Systolic blood pressure 138 mm[Hg] Christy Clay PA-C Work Phone: [facility] 06-17-2022 12:59-0400 Body weight 73.94 kg Christy Clay PA-C Work Phone: [facility] 06-17-2022 12:59-0400 Diastolic blood pressure 80 mm[Hg] Christy Clay PA-C Work Phone: [facility] 06-17-2022 12:59-0400 Heart rate 99 /min Christy Clay PA-C Work Phone: [facility] 06-17-2022 12:59-0400 Respiratory rate 19 /min Christy Clay PA-C Work Phone: [facility] 06-17-2022 12:59-0400 SaO2% (BldA) [Mass fraction] 98 % Christy Clay PA-C Work Phone: [facility] 06-17-2022 12:59-0400 Systolic blood pressure 142 mm[Hg] Christy Clay PA-C Work Phone: [facility] 06-15-2022 07:59-0400 Body temperature 97.7 [degF] Griselda Older OUTSOLE PARAFFINER.PANEL INSTRUMENT REPAIRER Work Phone: [facility] 06-15-2022 07:59-0400 Body weight 75.3 kg Griselda Older OUTSOLE PARAFFINER.PANEL INSTRUMENT REPAIRER Work Phone: [facility] 06-15-2022 07:59-0400 Diastolic blood pressure 78 mm[Hg] Griselda Older OUTSOLE PARAFFINER.PANEL INSTRUMENT REPAIRER Work Phone: [facility] 06-15-2022 07:59-0400 Heart rate 82 /min Griselda Older OUTSOLE PARAFFINER.PANEL INSTRUMENT REPAIRER Work Phone: [facility] 06-15-2022 07:59-0400 Respiratory rate 16 /min Griselda Older OUTSOLE PARAFFINER.PANEL INSTRUMENT REPAIRER Work Phone: [facility] 06-15-2022 07:59-0400 SaO2% (BldA) [Mass fraction] 99 % Griselda Older OUTSOLE PARAFFINER.PANEL INSTRUMENT REPAIRER Work Phone: [facility] 06-15-2022 07:59-0400 Systolic blood pressure 140 mm[Hg] Griselda Lema OUTSOLE PARAFFINER.PANEL INSTRUMENT REPAIRER Work Phone: [facility] 06-02-2022 12:34-0400 Body temperature 97.7 [degF] [facility] OUTSOLE PARAFFINER.PANEL INSTRUMENT REPAIRER Work Phone: [facility] 06-02-2022 12:34-0400 Body weight 75.57 kg [facility] OUTSOLE PARAFFINER.PANEL INSTRUMENT REPAIRER Work Phone: [facility] 06-02-2022 12:34-0400 Diastolic blood pressure 78 mm[Hg] [facility] OUTSOLE PARAFFINER.PANEL INSTRUMENT REPAIRER Work Phone: [facility] 06-02-2022 12:34-0400 Heart rate 85 /min [facility] OUTSOLE PARAFFINER.PANEL INSTRUMENT REPAIRER Work Phone: [facility] 06-02-2022 12:34-0400 Respiratory rate 21 /min [facility] OUTSOLE PARAFFINER.PANEL INSTRUMENT REPAIRER Work Phone: [facility] 06-02-2022 12:34-0400 SaO2% (BldA) [Mass fraction] 98 % [facility] OUTSOLE PARAFFINER.PANEL INSTRUMENT REPAIRER Work Phone: [facility] 06-02-2022 12:34-0400 Systolic blood pressure 148 mm[Hg] [facility] OUTSOLE PARAFFINER.PANEL INSTRUMENT REPAIRER Work Phone: [facility] 05-09-2022 08:10-0400 Body weight 73.48 kg Pamela Aranda MD Work Phone: [facility] 04-19-2022 15:19-0400 Body height 162.6 cm Darin Alonzo MD Work Phone: [facility] 04-19-2022 15:19-0400 Body temperature 97.81 [degF] Darin Alonzo MD Work Phone: [facility] 04-19-2022 15:19-0400 Body weight 74.39 kg Darin Alonzo MD Work Phone: [facility] 04-19-2022 15:19-0400 Diastolic blood pressure 68 mm[Hg] Darin Alonzo MD Work Phone: [facility] 04-19-2022 15:19-0400 Heart rate 80 /min Darin Alonzo MD Work Phone: [facility] 04-19-2022 15:19-0400 Respiratory rate 12 /min Darin Alonzo MD Work Phone: [facility] 04-19-2022 15:19-0400 SaO2% (BldA) [Mass fraction] 99 % Darin Alonzo MD Work Phone: [facility] 04-19-2022 15:19-0400 Systolic blood pressure 140 mm[Hg] Darin Alonzo MD Work Phone: [facility] 03-21-2022 16:11-0400 Body height 162.6 cm Darin Alonzo MD Work Phone: [facility] 03-21-2022 16:11-0400 Body temperature 98.29 [degF] Darin Alonzo MD Work Phone: [facility] 03-21-2022 16:11-0400 Body weight 73.94 kg Darin Alonzo MD Work Phone: [facility] 03-21-2022 16:11-0400 Diastolic blood pressure 72 mm[Hg] Darin Alonzo MD Work Phone: [facility] 03-21-2022 16:11-0400 Heart rate 76 /min Darin Alonzo MD Work Phone: [facility] 03-21-2022 16:11-0400 Respiratory rate 12 /min Darin Alonzo MD Work Phone: [facility] 03-21-2022 16:11-0400 SaO2% (BldA) [Mass fraction] 97 % Darin Alonzo MD Work Phone: [facility] 03-21-2022 16:11-0400 Systolic blood pressure 126 mm[Hg] Darin Alonzo MD Work Phone: [facility] 03-11-2022 08:41-0400 Body temperature 98.4 [degF] Dr. Darin Alonzo Work Phone: [facility] Work Phone: 03-11-2022 08:41-0400 Diastolic blood pressure 72 mm[Hg] Dr. Darin Alonzo Work Phone: [facility] Work Phone: 03-11-2022 08:41-0400 Heart rate 86 /min Dr. Darin Alonzo Work Phone: [facility] Work Phone: 03-11-2022 08:41-0400 Respiratory rate 18 /min Dr. Darin Alonzo Work Phone: [facility] Work Phone: 03-11-2022 08:41-0400 SaO2% (BldA) [Mass fraction] 95 % Dr. Darin Alonzo Work Phone: [facility] Work Phone: 03-11-2022 08:41-0400 Systolic blood pressure 182 mm[Hg] Dr. Darin Alonzo Work Phone: [facility] Work Phone: 03-11-2022 08:21-0400 Body mass index (BMI) [Ratio] 27.1 kg/m2 Dr. Darin Alonzo Work Phone: [facility] Work Phone: 03-10-2022 16:48-0400 Body height 165.[address] Darin Alonzo Work Phone: [facility] Work Phone: 03-10-2022 16:48-0400 Body weight 74.[address] Darin Alonzo Work Phone: [facility] Work Phone: 03-10-2022 16:26-0400 Body temperature 97.9 [degF] [facility] Work Phone: 03-10-2022 16:26-0400 Diastolic blood pressure 68 mm[Hg] [facility] Work Phone: 03-10-2022 16:26-0400 Heart rate 83 /min [facility] Work Phone: 03-10-2022 16:26-0400 Respiratory rate 18 /min [facility] Work Phone: 03-10-2022 16:26-0400 SaO2% (BldA) [Mass fraction] 97 % [facility] Work Phone: 03-10-2022 16:26-0400 Systolic blood pressure 167 mm[Hg] [facility] Work Phone: 03-10-2022 15:15-0400 Body height 165.1 cm [facility] Work Phone: 03-10-2022 15:15-0400 Body mass index (BMI) [Ratio] 27.9 kg/m2 [facility] Work Phone: 03-10-2022 15:15-0400 Body weight 76.1 kg [facility] Work Phone: 03-10-2022 14:57-0400 Body temperature 97 [degF] Nakul Patino MD Work Phone: [facility] 03-10-2022 14:57-0400 Body weight 76.11 kg Nakul Patino MD Work Phone: [facility] 03-10-2022 14:57-0400 Diastolic blood pressure 106 mm[Hg] Nakul Patino MD Work Phone: [facility] 03-10-2022 14:57-0400 Heart rate 77 /min Nakul Patino MD Work Phone: [facility] 03-10-2022 14:57-0400 Respiratory rate 18 /min Nakul Patino MD Work Phone: [facility] 03-10-2022 14:57-0400 SaO2% (BldA) [Mass fraction] 98 % Nakul Patino MD Work Phone: [facility] 03-10-2022 14:57-0400 Systolic blood pressure 182 mm[Hg] Nakul Patino MD Work Phone: [facility] Encounters Encounter Date Encounter Type Care Provider Facility Start: 04-09-2025 End: 04-10-2025 Telephone encounter Darin Alonzo MD Work Phone: [facility] [place] Comment on above: Patient Question Start: 03-26-2025 End: 03-28-2025 ambulatory Dorie Gill OUTSOLE PARAFFINER.PANEL INSTRUMENT REPAIRER Work Phone: [facility] Comment on above: [facility] Start: 03-07-2025 End: 03-07-2025 Office outpatient visit 25 minutes Griselda Older OUTSOLE PARAFFINER.PANEL INSTRUMENT REPAIRER Work Phone: [facility] [place] Comment on above: Muscle cramps (Prima ry Dx); Insomnia, unspecified type; Gastroesophageal reflux disease without esophagitis; Acute cough; Hypomagnesemia; Hyperlipidemia, unspecified hyperlipidemia type; Essential hypertension; Acquired hypothyroidism; Controlled type 2 diabetes mellitus without complication, unspecified whether fdc insulin use (HCC) Start: 03-07-2025 End: 03-07-2025 ambulatory GRISELDA OLDER Facility:[facility] Start: 03-02-2025 End: 03-03-2025 Refill Griselda Older OUTSOLE PARAFFINER.PANEL INSTRUMENT REPAIRER Work Phone: [facility] [place] Comment on above: Med Change Request Start: 02-24-2025 End: 03-04-2025 Refill Dorie Gill OUTSOLE PARAFFINER.PANEL INSTRUMENT REPAIRER Work Phone: [facility] Comment on above: Refill Request Start: 02-23-2025 End: 02-28-2025 ambulatory Griselda Older OUTSOLE PARAFFINER.PANEL INSTRUMENT REPAIRER Work Phone: [facility] [place] Comment on above: [facility] Start: 02-21-2025 End: 02-21-2025 ambulatory GRISELDA OLDER Facility:[facility] Start: 02-08-2025 End: 02-12-2025 ambulatory Griselda Older OUTSOLE PARAFFINER.PANEL INSTRUMENT REPAIRER Work Phone: [facility] [place] Comment on above: [facility] Start: 02-07-2025 End: 02-07-2025 Office outpatient visit 25 minutes Griselda Lema OUTSOLE PARAFFINER.PANEL INSTRUMENT REPAIRER Work Phone: [facility] [place] Comment on above: Muscle cramps (Prima ry Dx); Hypomagnesemia; Gastroesophageal reflux disease without esophagitis; Acute cough; Insomnia, unspecified type Start: 02-07-2025 End: 02-12-2025 ambulatory Griselda Lema OUTSOLE PARAFFINER.PANEL INSTRUMENT REPAIRER Work Phone: [facility] [place] Comment on above: [facility] Start: 02-05-2025 End: 02-10-2025 Follow-up encounter Griselda Lema OUTSOLE PARAFFINER.PANEL INSTRUMENT REPAIRER Work Phone: [facility] [place] Start: 02-04-2025 End: 02-07-2025 Telephone encounter Darin Alonzo MD Work Phone: [facility] [place] Comment on above: Patient Question (Le g cramps / asking if a higher dose should me called in?) Start: 02-01-2025 End: 02-05-2025 Refill Griselda Lema OUTSOLE PARAFFINER.PANEL INSTRUMENT REPAIRER Work Phone: [facility] [place] Comment on above: Med Change Request Start: 01-29-2025 End: [facility]-29-[facility] Start: 01-13-2025 End: 01-15-2025 Follow-up encounter Griselda Lema OUTSOLE PARAFFINER.PANEL INSTRUMENT REPAIRER Work Phone: [facility] [place] Comment on above: Results Start: 01-10-2025 End: 01-10-2025 Office outpatient visit 25 minutes Griselda Lema OUTSOLE PARAFFINER.PANEL INSTRUMENT REPAIRER Work Phone: [facility] [place] Comment on above: Essential hypertensi on (Primary Dx); Controlled type 2 diabetes mellitus without complication, unspecified whether roasterman insulin use (HCC); Muscle cramps; Insomnia, unspecified type; Anxiety and depression; Grief; Acquired hypothyroidism; Gastroesophageal reflux disease without esophagitis; Hyperlipidemia, unspecified hyperlipidemia type; Abnormal color of lips Start: 01-10-2025 End: 01-10-2025 [facility] Facility:[facility] Start: 01-08-2025 End: 03-10-2025 Follow-up encounter Griselda Lema APRN.PANEL INSTRUMENT REPAIRER Work Phone: Family [facility] Start: 01-03-2025 End: 01-03-2025 ambulatory GRISELDA LEMA Facility:[facility] Start: 12-23-2024 End: 12-24-2024 ambulatory Dorie Gill OUTSOLE PARAFFINER.PANEL INSTRUMENT REPAIRER Work Phone: [facility] Comment on above: [facility] Start: 12-13-2024 End: 12-13-2024 ambulatory Dorie Gill OUTSOLE PARAFFINER.PANEL INSTRUMENT REPAIRER Work Phone: [facility] Comment on above: [facility] Start: 12-13-2024 End: 12-13-2024 Office outpatient visit 15 minutes Dorie Gill APRN.PANEL INSTRUMENT REPAIRER Work Phone: [facility] Comment on above: Chronic cough (Prima ry Dx); Follicular bronchiolitis (HCC); Pulmonary air trapping; Post-nasal drip; Gastroesophageal reflux disease without esophagitis Start: 11-20-2024 End: 11-20-2024 Refill [facility] MD [facility] Comment on above: Refill Request Start: 11-18-2024 End: 11-19-2024 Telephone encounter Pamela Aranda MD Work Phone: [facility] Comment on above: Cough Start: 10-22-2024 End: 10-22-2024 ambulatory Arsh Chaney Facility:[facility] Start: 10-18-2024 End: 10-18-2024 ambulatory Dorie Gill APRN.PANEL INSTRUMENT REPAIRER Work Phone: [facility] Comment on above: new inhaler Start: 10-18-2024 End: 10-18-2024 E-mail encounter from caregiver Dorie Gill APRN.PANEL INSTRUMENT REPAIRER Work Phone: [facility] Start: 10-17-2024 End: 10-18-2024 Refill Pamela Aranda MD Work Phone: [facility] Comment on above: Refill Request Start: 10-17-2024 End: 10-18-2024 Telephone encounter Dorie Gill APRN.PANEL INSTRUMENT REPAIRER Work Phone: [facility] Comment on above: Patient Update (Medi cation change) Start: 10-11-2024 End: 10-11-2024 ambulatory GRISELDA LEMA Facility:[facility] Start: 10-11-2024 End: 10-11-2024 Patient encounter procedure Griselda Lema APRN.PANEL INSTRUMENT REPAIRER Work Phone: [facility] [place] Comment on above: Controlled type 2 di abetes mellitus without complication, unspecified whether fdc insulin use (HCC) (Primary Dx); Essential hypertension; Grief; Acquired hypothyroidism Start: 09-19-2024 End: 09-19-2024 Telephone encounter Darin Alonzo MD Work Phone: [facility] [place] Comment on above: Results Start: 09-19-2024 End: 09-19-2024 [facility] Facility:[facility] Start: 09-19-2024 End: 09-19-2024 Subsequent hospital visit by physician Screen Mammo [facility] Comment on above: Encounter for screen ing mammogram for breast cancer [Z12.31] Start: 09-16-2024 End: 09-16-2024 [facility] Facility:[facility] Start: 08-16-2024 End: 08-22-2024 ambulatory Griselda Lema APRN.PANEL INSTRUMENT REPAIRER Work Phone: [facility] [place] Comment on above: [facility] Start: 08-06-2024 End: 08-07-2024 Telephone encounter Darin Alonzo MD Work Phone: [facility] [place] Comment on above: Orders (Mammogram) Start: 08-05-2024 End: 08-05-2024 Telephone encounter Griselda Lema APRN.PANEL INSTRUMENT REPAIRER Work Phone: [facility] [place] Comment on above: Results Start: 08-03-2024 End: 08-03-2024 ambulatory [facility] Facility:[facility] Start: 07-13-2024 End: 07-13-2024 ambulatory [facility] [place] Work Phone: [facility] [place] Start: 07-13-2024 End: 07-13-2024 Patient encounter procedure [facility] [place] Work Phone: [facility] [place] Start: 06-24-2024 End: 06-24-2024 Telephone encounter Darin Alonzo MD Work Phone: [facility] [place] Comment on above: Patient Update Start: 2024 End: 2024 [facility] Facility:[facility] Start: 2024 End: 2024 Patient encounter procedure Griselda Lema APRN.CNP Work Phone: [facility] [place] Comment on above: Controlled type 2 di abetes mellitus without complication, unspecified whether fdc insulin use (HCC) (Primary Dx); Essential hypertension; Hyperlipidemia, unspecified hyperlipidemia type; Acquired hypothyroidism; Medication management Start: 06-14-2024 End: 06-14-2024 ambulatory DARIN ALONZO Facility:[facility] Start: 06-14-2024 End: 06-14-2024 Office outpatient visit 25 minutes Dorie Gill APRN.PANEL INSTRUMENT REPAIRER Work Phone: [facility] Comment on above: Chronic cough (Prima ry Dx); Follicular bronchiolitis (HCC); Pulmonary air trapping; PND (post-nasal drip); Cardiac murmur Start: 06-13-2024 End: 06-13-2024 [facility] Facility:[facility] Start: 05-16-2024 End: 05-16-2024 Refill Darin Alonzo MD Work Phone: [facility] [place] Comment on above: Refill Request Start: 05-16-2024 End: 05-17-2024 Refill Griselda Lema APRN.PANEL INSTRUMENT REPAIRER Work Phone: [facility] [place] Comment on above: Med Change Request Start: 04-25-2024 End: 06-03-2024 Telephone encounter Darin Alonzo MD Work Phone: [facility] [place] Comment on above: Patient Update (Diab etic shovaughn) Start: 03-21-2024 End: 03-21-2024 [facility] Facility:[facility] Start: 03-21-2024 End: 03-21-2024 Patient encounter procedure Griselda Older OUTSOLE PARAFFINER.PANEL INSTRUMENT REPAIRER Work Phone: [facility] [place] Comment on above: Controlled type 2 di abetes mellitus without complication, unspecified whether fdc insulin use (HCC) (Primary Dx); Hyperlipidemia, unspecified hyperlipidemia type; Essential hypertension; Gastroesophageal reflux disease without esophagitis; Grief; Acquired hypothyroidism; Follicular bronchiolitis (HCC) Start: 02-22-2024 End: 02-22-2024 Patient encounter procedure Darleen Orr OUTSOLE PARAFFINER.PANEL INSTRUMENT REPAIRER Work Phone: [facility] Comment on above: Elbow wound, left, i nitial encounter (Primary Dx) Start: 02-22-2024 Telephone encounter Darleen iTng ggs OUTSOLE PARAFFINER.PANEL INSTRUMENT REPAIRER Work Phone: [facility] [place] Comment on above: Medication Problem Start: 02-02-2024 Refill Griselda Older OUTSOLE PARAFFINER .PANEL INSTRUMENT REPAIRER Work Phone: [facility] [place] Comment on above: Refill Request Start: 01-31-2024 Refill Griselda Older OUTSOLE PARAFFINER .PANEL INSTRUMENT REPAIRER Work Phone: [facility] [place] Comment on above: Refill Request Start: 01-08-2024 Telephone encounter Griselda Older OUTSOLE PARAFFINER.PANEL INSTRUMENT REPAIRER Work Phone: [facility] [place] Comment on above: Patient Update Start: 12-29-2023 ambulatory Griselda Older OUTSOLE PARAFFINER .PANEL INSTRUMENT REPAIRER Work Phone: [facility] [place] Comment on above: [facility] Start: 12-18-2023 ambulatory Griselda Older OUTSOLE PARAFFINER .PANEL INSTRUMENT REPAIRER Work Phone: [facility] [place] Comment on above: [facility] Start: 12-18-2023 Telephone encounter Griselda Older OUTSOLE PARAFFINER.PANEL INSTRUMENT REPAIRER Work Phone: [facility] [place] Comment on above: Results Start: 12-15-2023 End: 12-15-2023 Patient encounter procedure Griselda Older OUTSOLE PARAFFINER.PANEL INSTRUMENT REPAIRER Work Phone: Internal Medicine [place] Comment on above: Controlled type 2 di abetes mellitus without complication, unspecified whether roasterman insulin use (HCC) (Primary Dx); Essential hypertension; Acquired hypothyroidism; Dizziness Start: 12-05-2023 End: 12-05-2023 Subsequent hospital visit by physician [facility] ([facility]) Work Phone: Cat [place] Comment on above: Follicular bronchiol itis (HCC) [J42] Start: 12-04-2023 Refill Darin Montague Work Phone: Internal Medicine [place] Comment on above: Refill Request Start: 11-28-2023 End: 11-28-2023 Patient encounter procedure Pamela Aranda MD Work Phone: Pulmonary Medicine Comment on above: Follicular bronchiol itis (HCC) (Primary Dx); Chronic cough; Postnasal drip Start: 10-30-2023 Refill Griselda Older OUTSOLE PARAFFINER .PANEL INSTRUMENT REPAIRER Work Phone: Internal Medicine [place] Comment on above: Refill Request Start: 10-02-2023 ambulatory Griselda Older OUTSOLE PARAFFINER .PANEL INSTRUMENT REPAIRER Work Phone: Internal Medicine [place] Comment on above: pawoods Start: 08-23-2023 ambulatory Griselda Older OUTSOLE PARAFFINER .PANEL INSTRUMENT REPAIRER Work Phone: Internal Medicine [place] Comment on above: pawoods Start: 08-14-2023 Refill Griselda Older OUTSOLE PARAFFINER .PANEL INSTRUMENT REPAIRER Work Phone: Internal Medicine [place] Comment on above: Refill Request Start: 08-01-2023 Telephone encounter Darin gamez MD Work Phone: Family Medicine [place] Comment on above: Mammogram order Start: 07-15-2023 End: 07-15-2023 ambulatory Immunization Clinic Nurse [place] Work Phone: Family Medicine [place] Comment on above: Arrived Start: 07-07-2023 Telephone encounter Pamela Aranda MD Work Phone: Pulmonary Medicine Comment on above: Patient Update Start: 07-06-2023 Telephone encounter Pamela Aranda MD Work Phone: Pulmonary Medicine Comment on above: Patient Update Start: 05-29-2023 End: 05-29-2023 Patient encounter procedure Pamela Aranda MD Work Phone: Pulmonary Medicine Comment on above: Follicular bronchiol itis (Primary Dx); Upper airway cough syndrome Start: 05-19-2023 End: 05-19-2023 Patient encounter procedure Griselda Lema APRN.CNP Work Phone: Internal Medicine [place] Comment on above: Controlled type 2 di abetes mellitus without complication, unspecified whether fdc insulin use (HCC) (Primary Dx); Essential hypertension; Hyperlipidemia, unspecified hyperlipidemia type; Acquired hypothyroidism Start: 05-17-2023 End: 06-10-[address] Darin Alonzo Work Phone: [facility] Work Phone: Start: 05-17-2023 End: 06-10-[address] Darin Alonzo Work Phone: [facility] Work Phone: Start: 04-18-2023 Refill Darin Montague Work Phone: Internal Medicine [place] Comment on above: Refill Request Start: 04-11-2023 End: 05-11-[address] Darin Alonzo Work Phone: [facility] Work Phone: Start: 04-11-2023 End: 05-11-[address] [facility] Work [facility] Start: 04-10-2023 End: 04-10-2023 Subsequent hospital visit by physician Es[facility] Work Phone: Radiology Comment on above: Tenderness of right hip [M25.551] Start: 04-10-2023 End: 04-10-2023 Patient encounter procedure Griselda Lema APRN.CNP Work Phone: Internal Medicine [place] Comment on above: Essential hypertensi on (Primary Dx); Tenderness of right hip; Right thigh pain; Right ankle instability Start: 03-21-2023 End: 03-21-[address] Darin Alonzo Work Phone: [facility] Vascular Surgery Work Phone: Start: 03-07-2023 Non-patient / Non-visit Dr. Derrek Alonzo Work Phone: [facility]-PJ[facility]-W[facility] Start: 03-07-2023 End: 03-07-[address] Darin Alonzo Work Phone: [facility] Work Phone: Start: 03-07-2023 End: 03-07-[address] Darin Alonzo Work Phone: [facility] Work Phone: Start: 03-01-2023 End: 03-01-2023 Patient encounter procedure Darin Alonzo MD Work Phone: Internal Medicine [place] Comment on above: Essential hypertensi on (Primary Dx); Uncontrolled hypertension Start: 02-27-2023 Refill Griselda Older OUTSOLE PARAFFINER .PANEL INSTRUMENT REPAIRER Work Phone: Internal Medicine [place] Comment on above: Refill Request Start: 02-27-2023 Telephone encounter Darin gamez MD Work Phone: Internal Medicine [place] Comment on above: Blood Pressure Start: 02-25-2023 Refill Griselda Older OUTSOLE PARAFFINER .PANEL INSTRUMENT REPAIRER Work Phone: Internal Medicine [place] Comment on above: Refill Request Start: 02-23-2023 Refill Griselda Older OUTSOLE PARAFFINER .PANEL INSTRUMENT REPAIRER Work Phone: Internal Medicine [place] Comment on above: Refill Request Start: 02-16-2023 Refill Griselda Older OUTSOLE PARAFFINER .PANEL INSTRUMENT REPAIRER Work Phone: Internal Medicine [place] Comment on above: Refill Request Start: 12-13-2022 Refill Darin Montague Work Phone: Internal Medicine [place] Comment on above: Refill Request Start: 11-25-2022 End: 11-25-2022 ambulatory Pulm Lab [facility] Work Phone: PULM LAB [facility] Comment on above: Spirometry Start: 11-25-2022 End: 11-25-2022 Patient encounter procedure Pulm Lab [facility] Work Phone: [place] [facility] MIGUEL ANGELLADYWMoraima Comment on above: Follicular bronchiol itis (HCC) (Primary Dx); Post-nasal drip; Gastroesophageal reflux disease, unspecified whether esophagitis present Start: 11-09-2022 Refill Darin Montague Work Phone: Internal Medicine [place] Comment on above: Refill Request Start: 11-07-2022 Refill Griselda ManriquezPANEL INSTRUMENT REPAIRER Work Phone: Internal Medicine [place] Comment on above: Refill Request Start: 11-07-2022 End: 11-07-2022 Subsequent hospital visit by physician Xr [facility] [place] Work Phone: Radiology Comment on above: Follicular bronchiol itis (HCC) [J42] Start: 11-01-2022 End: 11-01-2022 Patient encounter procedure Darni Alonzo MD Work Phone: Internal Medicine [place] Comment on above: Essential hypertensi on (Primary Dx); Hyperlipidemia, unspecified hyperlipidemia type; Acquired hypothyroidism; Controlled type 2 diabetes mellitus without complication, unspecified whether roasterman insulin use (HCC); Follicular bronchiolitis (HCC) Start: 09-19-2022 Telephone encounter Darin gamez MD Work Phone: Internal Medicine [place] Comment on above: Results Start: 08-23-2022 Documentation procedure Mammog shavonne Coordinator [facility] Start: 08-23-2022 Letter encounter Mammography Coordinator [facility] Department Start: 08-22-2022 End: 08-22-2022 Subsequent hospital visit by physician Screen Mammo [facility] Mammogram Comment on above: Encounter for screen ing mammogram for malignant neoplasm of breast [Z12.31] Start: 08-19-2022 Refill Griselda Lema APRN .PANEL INSTRUMENT REPAIRER Work Phone: Internal Medicine [place] Comment on above: Refill Request Start: 08-01-2022 End: 08-01-2022 Patient encounter procedure Darin Alonzo MD Work Phone: Internal Medicine [place] Comment on above: Controlled type 2 di abetes mellitus without complication, unspecified whether roasterman insulin use (HCC) (Primary Dx); Acquired hypothyroidism; Essential hypertension; Hyperlipidemia, unspecified hyperlipidemia type Start: 07-28-2022 Telephone encounter Darin gamez MD Work Phone: Internal Medicine [place] Comment on above: Orders Start: 07-19-2022 Refill Darin Montague Work Phone: Internal Medicine [place] Comment on above: Refill Request Start: 07-15-2022 End: 07-15-2022 Patient encounter procedure Christy Williamson PA-C Work Phone: Pulmonary Medicine Comment on above: Follicular bronchiol itis (HCC) (Primary Dx); Cough, unspecified type; Gastroesophageal reflux disease without esophagitis; Post-nasal drip Start: 07-02-2022 End: 07-02-2022 ambulatory Immunization Clinic Nurse [place] Work Phone: Family Medicine [place] Comment on above: Arrived Start: 2022 Refill Darin Montague Work Phone: Internal Medicine [place] Comment on above: Refill Request Start: 06-17-2022 End: 06-17-2022 Patient encounter procedure Christy Williamson PA-C Work Phone: Pulmonary Medicine Comment on above: Acute cough (Primary Dx); Follicular bronchiolitis (HCC); Gastroesophageal reflux disease without esophagitis Start: 06-15-2022 End: 06-15-2022 Subsequent hospital visit by physician Esme [facility] [place] Work Phone: Radiology Comment on above: Acute cough [R05.1] Start: 06-15-2022 End: 06-15-2022 Patient encounter procedure Griselda Lema APRN.PANEL INSTRUMENT REPAIRER Work Phone: Internal Medicine [place] Comment on above: Acute cough (Primary Dx); Post-nasal drip Start: 06-02-2022 End: 06-02-2022 Patient encounter procedure Arsh Davalos APRN.PANEL INSTRUMENT REPAIRER Work Phone: [place] [facility] Comment on above: Suspected COVID-19 v irus infection (Primary Dx); Sinobronchitis Start: 05-09-2022 End: 05-09-2022 Patient encounter procedure Pamela Aranda MD Work Phone: Pulmonary Medicine Comment on above: Follicular bronchiol itis (HCC) (Primary Dx); Post-nasal drip; Gastroesophageal reflux disease without esophagitis Start: 04-22-2022 Refill Darin Montague Work Phone: Internal Medicine [place] Comment on above: Refill Request Start: 04-21-2022 Telephone encounter Griselda Lema APRN.PANEL INSTRUMENT REPAIRER Work Phone: Internal Medicine [place] Comment on above: Medication Problem Start: 04-19-2022 End: 04-19-2022 Patient encounter procedure Darin Alonzo MD Work Phone: Internal Medicine [place] Comment on above: Chronic cough (Prima ry Dx); Controlled type 2 diabetes mellitus without complication, unspecified whether fdc insulin use (HCC); Essential hypertension; Hyperlipidemia, unspecified hyperlipidemia type Start: 04-14-2022 ambulatory Darin Montague Work Phone: Internal Medicine [place] Comment on above: Cough Start: 04-09-2022 Refill Griselda ManriquezPANEL INSTRUMENT REPAIRER Work Phone: Internal Medicine [place] Comment on above: Refill Request Start: 03-23-2022 Telephone encounter Darin gamez MD Work Phone: Internal Medicine [place] Comment on above: Results Start: 03-21-2022 End: 03-21-2022 Subsequent hospital visit by physician Xr [facility] [place] Work Phone: Radiology Comment on above: Acute cough [R05.1] Start: 03-21-2022 End: 03-21-2022 Patient encounter procedure Darin Alonzo MD Work Phone: Internal Medicine [place] Comment on above: Acute cough (Primary Dx); Controlled type 2 diabetes mellitus without complication, without long-term current use of insulin (HCC); Hospital discharge follow-up; Vertigo Start: 03-17-2022 Telephone encounter Darin gamez MD Work Phone: Internal Medicine [place] Comment on above: Patient Update Start: 03-15-2022 Refill Darin Montague Work Phone: Internal Medicine [place] Comment on above: Refill Request Start: 03-11-2022 Non-patient / Non-visit Dr. Derrek Alonzo Work Phone: [facility] Inpatient Physicians Start: 03-11-2022 Non-patient / Non-visit Dr. Derrek Alonzo Work Phone: [facility] Start: 03-11-2022 Non-patient / Non-visit Dr. Derrek Alonzo Work Phone: [facility] Start: 03-10-2022 Non-patient / Non-visit Dr. Derrek Alonzo Work Phone: [facility] Inpatient Physicians Start: 03-10-2022 End: 03-11-2022 Evaluation and management of inpatient Dr. Darin Alonzo Work Phone: [facility]-Progressive Care Unit Start: 03-10-2022 End: 03-10-2022 Emergency department patient visit [facility] Start: 03-10-2022 End: 03-10-2022 Patient encounter procedure Nakul Patino MD Work Phone: [place] [facility] Comment on above: Dizziness (Primary D x); Headache, unspecified headache type; Nausea Start: 12-10-2021 Refill Darin Montague Work Phone: Internal Medicine [place] Comment on above: Refill Request Start: 10-27-2017 End: 10-27-2017 Ambulatory [facility] Procedures Date Procedure Procedure Detail Performing Clinician Start: 10-11-2024 Hemoglobin A1c/Hemoglobin.total in Blood Griselda Older OUTSOLE PARAFFINER.PANEL INSTRUMENT REPAIRER Work Phone: Start: 09-19-2024 Screening mammograph y bi 2-view breast inc cad Darin Alonzo MD Work Phone: Start: 03-21-2024 Hemoglobin A1c/Hemoglobin.total in Blood Griselda Older OUTSOLE PARAFFINER.PANEL INSTRUMENT REPAIRER Work Phone: Start: 07-15-2023 INFLUENZA VACCINE, P RSV FREE, AGE 65+ YR, HIGH DOSE, QUADRIVALENT (FLUZONE HIGH-DOSE) Hamzah Leggett MD Work Phone: Start: 04-10-2023 Radex ankle complete minimum 3 views Griselda Older OUTSOLE PARAFFINER.PANEL INSTRUMENT REPAIRER Work Phone: Start: 11-25-2022 Brncdilat rspse spmt ry pre&post-brncdilat admn Pamela Aranda MD Work Phone: Start: 11-07-2022 Radiologic exam ches t 2 views Pamela Aranda MD Work Phone: Start: 08-22-2022 Screening mammograph y bi 2-view breast inc cad Griselda Older OUTSOLE PARAFFINER.PANEL INSTRUMENT REPAIRER Work Phone: Start: 07-02-2022 INFLUENZA SEASONAL QUADRIVALENT HIGH DOSE AGE 65+ Hamzah Leggett MD Work Phone: Start: 06-15-2022 Radiologic exam ches t 2 views Griselda Older OUTSOLE PARAFFINER.PANEL INSTRUMENT REPAIRER Work Phone: Start: 03-21-2022 Radiologic exam ches t 2 views Darin Alonzo MD Work Phone: Start: 03-10-2022 MRI of brain without contrast Dr. Darin Alonzo Work Phone: Start: 03-10-2022 CT angiography of he ad and neck Start: 03-10-2022 CT of head without contrast Start: 10-22-2021 Adult depression scr eening assessment Darin Alonzo MD Work Phone: Plan of Treatment Date Care Activity Detail Author Start: 10-11-2025 Covid-19 Vaccine ( season) Covid-19 Vaccine ( season) [facility] Comment on above: Postponed from 07/04 (Declined at this time) Start: 07-16-2025 Glaucoma screening Dilated Retinal E xam [facility] Start: 07-05-2025 Hemoglobin A1c measurement HbA1C [facility] Start: 06-24-2025 End: 06-24-2025 Patient encounter procedure 06/24/2025 9:30 AM EDT Office Visit Pulmonary Medicine [address] [place] [address] Pamela Aranad MD [address] [place] [address] 6 month follow up Pulmonary Medicine Comment on above: 6 month follow up Start: 06-13-2025 Hepatitis B screening Urine Al bumin:Creatinine Ratio [facility] Start: 06-13-2025 Hepatitis B surface antibody level LDL Cholesterol [facility] Start: 06-07-2025 End: 09-06-2025 CBC panel - Blood by Automated count COMPLETE BLOOD COUNT Lab Routine Essential hypertension Controlled type 2 diabetes mellitus without complication, unspecified whether fdc insulin use (HCC) Expected: 06/07/2025 (Approximate), Expires: 09/06/2025 [facility] Comment on above: Expected: 06/07/2025 (Approximate), Expires: 09/06/2025 Start: 06-07-2025 End: 09-06-2025 Comprehensive metabolic 2000 panel - Serum or Plasma COMPREHENSIVE METABOLIC PANEL Lab Routine Hyperlipidemia, unspecified hyperlipidemia type Essential hypertension Controlled type 2 diabetes mellitus without complication, unspecified whether fdc insulin use (HCC) Expected: 06/07/2025, Expires: 09/06/2025 [facility] Comment on above: Expected: 06/07/2025 , Expires: 09/06/2025 Start: 06-07-2025 End: 09-06-2025 Hemoglobin A1c in Blood HEMOGLOBIN A1C Lab Routine Controlled type 2 diabetes mellitus without complication, unspecified whether fdc insulin use (HCC) Expected: 06/07/2025 (Approximate), Expires: 09/06/2025 [facility] Comment on above: Expected: 06/07/2025 (Approximate), Expires: 09/06/2025 Start: 06-07-2025 End: 09-06-2025 Lipid 1996 panel - Serum or Plasma LIPID PANEL, FASTING Lab Routine Hyperlipidemia, unspecified hyperlipidemia type Expected: 06/07/2025, Expires: 09/06/2025 [facility] Comment on above: Expected: 06/07/2025 , Expires: 09/06/2025 Start: 06-07-2025 End: 09-06-2025 Magnesium [Mass/volume] in Serum or Plasma MAGNESIUM Lab Routine Hypomagnesemia Expected: 06/07/2025 (Approximate), Expires: 09/06/2025 [facility] Work Phone: Comment on above: Expected: 06/07/2025 (Approximate), Expires: 09/06/2025 Start: 06-07-2025 End: 09-06-2025 Thyrotropin [Units/volume] in Serum or Plasma THYROID STIMULATING HORMONE Lab Routine Acquired hypothyroidism Expected: 06/07/2025, Expires: 09/06/2025 [facility] Comment on above: Expected: 06/07/2025 , Expires: 09/06/2025 Start: 06-06-2025 End: 06-06-2025 Patient encounter procedure 06/06/2025 8:00 AM EDT Office Visit Internal Medicine [place] [address] [place], [place] [id number] Darin Alonzo MD [address] [place], [place] [id number] Medicare Wellness Internal Medicine [place] Comment on above: Medicare Wellness Start: 05-12-2025 Influenza vaccination Influenza Vacc ine (#1) [facility] Start: 04-10-2025 Hemoglobin A1c measurement HbA1C [facility] Start: 03-21-2025 Diabetic foot examination Diabetic F oot Exam [facility] Start: 03-10-2025 Influenza vaccination Influenza Vacc ine (#1) [facility] Comment on above: Postponed from 05/12 (Declined at this time) Start: 03-07-2025 End: 03-07-2025 Patient encounter procedure 03/07/2025 7:00 AM EDT Office Visit Internal Medicine [place] [address] [place], [place] [phone] Griselda Lema APRN.PANEL INSTRUMENT REPAIRER [address] [place], [place] [id number] 4 week follow up Internal Medicine [place] Comment on above: 4 week follow up Start: 02-21-2025 End: 05-23-2025 Magnesium [Mass/volume] in Serum or Plasma MAGNESIUM Lab Routine Hypomagnesemia Expected: 02/21/2025, Expires: 05/23/2025 [facility] Work Phone: Comment on above: Expected: 02/21/2025 , Expires: 05/23/2025 Start: 02-07-2025 End: 02-07-2025 Patient encounter procedure 02/07/2025 7:00 AM EDT Office Visit [facility] [place] [address] [facility] [place] [id number] Griselda Lema APRN.PANEL INSTRUMENT REPAIRER [address] [facility] [place], [place] [id number] 4 week follow up Internal Medicine [place] Comment on above: 4 week follow up Start: 01-20-2025 End: 04-21-2025 Magnesium [Mass/volume] in Serum or Plasma MAGNESIUM Lab Routine Hypomagnesemia Expected: 01/20/2025 (Approximate), Expires: 04/21/2025 [facility] Work Phone: Comment on above: Expected: 01/20/2025 (Approximate), Expires: 04/21/2025 Start: 01-10-2025 End: 04-11-2025 Magnesium [Mass/volume] in Serum or Plasma [facility] Work Phone: Comment on above: Expected: 01/10/2025 , Expires: 04/11/2025 Start: 01-10-2025 End: 01-10-2025 Patient encounter procedure 01/10/2025 7:20 AM EDT Office Visit Internal Medicine [place] [address] [place] [address] Griselda Lema APRN.PANEL INSTRUMENT REPAIRER [address] [facility] [place], [place] [phone] 3 month follow up Internal Medicine [place] Comment on above: 3 month follow up Start: 01-08-2025 End: 04-09-2025 Basic metabolic 2000 panel - Serum or Plasma BASIC METABOLIC PANEL Lab Routine Controlled type 2 diabetes mellitus without complication, unspecified whether roasterman insulin use (HCC) Essential hypertension Expected: 01/08/2025 (Approximate), Expires: 04/09/2025 [facility] Work Phone: Comment on above: Expected: 01/08/2025 (Approximate), Expires: 04/09/2025 Start: 01-08-2025 End: 04-09-2025 CBC panel - Blood by Automated count COMPLETE BLOOD COUNT Lab Routine Controlled type 2 diabetes mellitus without complication, unspecified whether fdc insulin use (HCC) Essential hypertension Expected: 01/08/2025 (Approximate), Expires: 04/09/2025 [facility] Comment on above: Expected: 01/08/2025 (Approximate), Expires: 04/09/2025 Start: 01-08-2025 End: 04-09-2025 Hemoglobin A1c in Blood HEMOGLOBIN A1C Lab Routine Controlled type 2 diabetes mellitus without complication, unspecified whether roasterman insulin use (HCC) Expected: 01/08/2025 (Approximate), Expires: 04/09/2025 [facility] Comment on above: Expected: 01/08/2025 (Approximate), Expires: 04/09/2025 Start: 01-08-2025 End: 04-09-2025 Thyrotropin [Units/volume] in Serum or Plasma THYROID STIMULATING HORMONE Lab Routine Acquired hypothyroidism Expected: 01/08/2025 (Approximate), Expires: 04/09/2025 [facility] Comment on above: Expected: 01/08/2025 (Approximate), Expires: 04/09/2025 Start: 12-13-2024 End: 12-13-2024 Patient encounter procedure 12/13/2024 8:00 AM EDT Office Visit Pulmonary Medicine [address] [place] [address] Dorie Gill APRN.PANEL INSTRUMENT REPAIRER [address] [facility] [address] [place] [address] 6 month f/u Pulmonary Medicine Comment on above: 6 month f/u Start: 12-12-2024 Hemoglobin A1c measurement HbA1C [facility] Start: 10-11-2024 End: 10-11-2024 Patient encounter procedure 10/11/2024 8:00 AM EST Office Visit Internal Medicine [place] [address] [place] [address] Griselda Lema APRN.PANEL INSTRUMENT REPAIRER [address] [place] [address] 3 month follow up Internal Medicine [place] Comment on above: 3 month follow up Start: 09-21-2024 Hemoglobin A1c measurement HbA1C [facility] Start: 09-20-2024 End: 09-20-2024 Patient encounter procedure 09/20/2024 7:20 AM EST Office Visit [facility] [place] [address] [place] [address] Griselda Lema APRN.PANEL INSTRUMENT REPAIRER [address] [place] [address] 3 month follow up Internal Medicine [place] Comment on above: 3 month follow up Start: 09-19-2024 End: 09-19-2024 Patient encounter procedure 09/19/2024 10:50 AM EST Appointment Mammogram [address] [place] [address] Encounter for screening mammogram for breast cancer [Z12.31] Mammogram Comment on above: Encounter for screen ing mammogram for breast cancer [Z12.31] Start: 09-11-2024 Advance Directive Discussion Advance Directive Discussion [facility] Start: 09-04-2024 End: 12-04-2024 Thyrotropin [Units/volume] in Serum or Plasma THYROID STIMULATING HORMONE Lab Routine Acquired hypothyroidism Medication management Expected: 09/04/2024 (Approximate), Expires: 12/04/2024 [facility] Work Phone: Comment on above: Expected: 09/04/2024 (Approximate), Expires: 12/04/2024 Start: 09-04-2024 End: 12-04-2024 Thyroxine (T4) free [Mass/volume] in Serum or Plasma T4 FREE/FREE THYROXINE Lab Routine Acquired hypothyroidism Medication management Expected: 09/04/2024 (Approximate), Expires: 12/04/2024 [facility] Comment on above: Expected: 09/04/2024 (Approximate), Expires: 12/04/2024 Start: 08-17-2024 RSV Vaccine (1 - 1-d ose 60+ series) RSV Vaccine (1 - 1-dose 60+ series) [facility] Comment on above: Postponed from 06/21 (Declined at this time) Start: 08-17-2024 RSV Vaccine (1 - 1-d ose 75+ series) RSV Vaccine (1 - 1-dose 75+ series) [facility] Comment on above: Postponed from 06/21 (Declined at this time) Start: 08-05-2024 Hepatitis B surface antibody level LDL Cholesterol [facility] Start: 07-22-2024 End: 10-21-2024 Thyrotropin [Units/volume] in Serum or Plasma THYROID STIMULATING HORMONE Lab Routine Acquired hypothyroidism Medication management Expected: 07/22/2024 (Approximate), Expires: 10/21/2024 [facility] Work Phone: Comment on above: Expected: 07/22/2024 (Approximate), Expires: 10/21/2024 Start: 07-14-2024 Glaucoma screening Dilated Retinal E xam [facility] Start: 07-14-2024 Hepatitis C antibody , confirmatory test Dilated Retinal Exam [facility] Start: 07-13-2024 End: 07-13-2024 Patient encounter procedure 07/13/2024 8:00 AM EDT Immunization [facility] Medicine [place] [address] [place], [place] [phone] [place], Immunization Clinic Nurse [address] [facility] [place] [id number] 65+ Flu Vaccine Family Medicine [place] Comment on above: 65+ Flu Vaccine Start: 07-04-2024 Covid-19 Vaccine ( season) Covid-19 Vaccine ( season) [facility] [facility] Start: 2024 End: 2024 Patient encounter procedure 2024 7:20 AM EDT Office Visit Internal Medicine [place] [address] [place] [id number] Griselda Lema APRN.PANEL INSTRUMENT REPAIRER [address] [facility] [place] [id number] 3 month follow up Internal Medicine [place] Comment on above: 3 month follow up Start: 06-17-2024 End: 09-16-2024 CBC panel - Blood by Automated count COMPLETE BLOOD COUNT Lab Routine Controlled type 2 diabetes mellitus without complication, unspecified whether roasterman insulin use (HCC) Essential hypertension Expected: 06/17/2024 (Approximate), Expires: 09/16/2024 [facility] Comment on above: Expected: 06/17/2024 (Approximate), Expires: 09/16/2024 Start: 06-17-2024 End: 09-16-2024 Comprehensive metabolic 2000 panel - Serum or Plasma COMPREHENSIVE METABOLIC PANEL Lab Routine Controlled type 2 diabetes mellitus without complication, unspecified whether fdc insulin use (HCC) Essential hypertension Hyperlipidemia, unspecified hyperlipidemia type Expected: 06/17/2024 (Approximate), Expires: 09/16/2024 [facility] Comment on above: Expected: 06/17/2024 (Approximate), Expires: 09/16/2024 Start: 06-17-2024 End: 09-16-2024 Hemoglobin A1c in Blood HEMOGLOBIN A1C Lab Routine Controlled type 2 diabetes mellitus without complication, unspecified whether roasterman insulin use (HCC) Expected: 06/17/2024 (Approximate), Expires: 09/16/2024 [facility] Comment on above: Expected: 06/17/2024 (Approximate), Expires: 09/16/2024 Start: 06-17-2024 End: 09-16-2024 Lipid 1996 panel - Serum or Plasma LIPID PANEL BASIC Lab Routine Hyperlipidemia, unspecified hyperlipidemia type Expected: 06/17/2024 (Approximate), Expires: 09/16/2024 [facility] Comment on above: Expected: 06/17/2024 (Approximate), Expires: 09/16/2024 Start: 06-17-2024 End: 09-16-2024 Microalbumin/Creatinine [Mass Ratio] in Urine ALBUMIN/CREATININE RATIO, URINE Lab Routine Controlled type 2 diabetes mellitus without complication, unspecified whether fdc insulin use (HCC) Expected: 06/17/2024 (Approximate), Expires: 09/16/2024 [facility] Work Phone: Comment on above: Expected: 06/17/2024 (Approximate), Expires: 09/16/2024 Start: 06-17-2024 End: 09-16-2024 Thyrotropin [Units/volume] in Serum or Plasma THYROID STIMULATING HORMONE Lab Routine Acquired hypothyroidism Expected: 06/17/2024 (Approximate), Expires: 09/16/2024 [facility] Comment on above: Expected: 06/17/2024 (Approximate), Expires: 09/16/2024 Start: 06-14-2024 End: 06-14-2024 Patient encounter procedure Pulmonary Medicine Comment on above: 6 month follow up Start: 05-19-2024 ANNUAL PCP TEAM OIL AND GAS DRAFTER ROMY DISEASE VISIT ANNUAL PCP TEAM CHRONIC DISEASE VISIT [facility] Start: 05-19-2024 BP CONTROLLED (<130/80) BP CONTROLLE D (<130/80) [facility] Start: 05-19-2024 Covid-19 Vaccine () Covid-19 Vaccine ( season) [facility] Comment on above: Postponed from 05/12 (Declined at this time) Start: 05-19-2024 COVID-19 VACCINE (6 - Moderna series) COVID-19 VACCINE (6 - Moderna series) [facility] Comment on above: Postponed from 11/04 (Declined at this time) Start: 05-19-2024 Urine microalbumin profile [facility] Comment on above: Postponed from 03/23 (Declined at this time) Start: 05-12-2024 Influenza vaccination Influenza Vacc ine (#1) [facility] Start: 04-10-2024 ANNUAL PCP TEAM OIL AND GAS DRAFTER ROMY DISEASE VISIT ANNUAL PCP TEAM CHRONIC DISEASE VISIT [facility] Start: 03-21-2024 End: 03-21-2024 Patient encounter procedure 03/21/2024 7:20 AM EDT Office Visit Internal Medicine [place] [address] [place] [address] Griselda Lema APRN.PANEL INSTRUMENT REPAIRER [address] [place], [place] [phone] 3month FU DM [facility] Medicine [place] Comment on above: 3month FU DM Start: 03-15-2024 End: 03-15-2024 Patient encounter procedure 03/15/2024 7:20 AM EDT Office Visit Internal Medicine [place] [address] [place] [address] Griselda Lema APRN.PANEL INSTRUMENT REPAIRER [address] [place] [address] 3 month DM follow up Internal Medicine [place] Comment on above: 3 month DM follow up Start: 03-11-2024 Hemoglobin A1c measurement HbA1C [facility] Start: 03-10-2024 Influenza vaccination [facility] Comment on above: Postponed from 05/12 (Declined at this time) Start: 03-01-2024 ANNUAL PCP TEAM OIL AND GAS DRAFTER ROMY DISEASE VISIT ANNUAL PCP TEAM CHRONIC DISEASE VISIT [facility] Start: 02-23-2024 Urine microalbumin profile DTaP,Tdap,Td Vaccine (1 - Tdap) [facility] Start: 02-22-2024 End: 05-23-2024 Bacteria identified in Wound by Culture [facility] Work Phone: Comment on above: Expected: 02/22/2024 , Expires: 05/23/2024 Start: 02-03-2024 Hemoglobin A1c measurement HbA1C [facility] Start: 02-03-2024 Hemoglobin A1c/Hemoglobin.total in Blood HbA1C [facility] Start: 01-31-2024 ANNUAL PCP TEAM [facility] ROMY DISEASE VISIT ANNUAL PCP TEAM CHRONIC DISEASE VISIT [facility] Start: 01-24-2024 Hepatitis B surface antibody level LDL CHOLESTEROL [facility] Start: 01-17-2024 End: 04-17-2024 Thyrotropin [Units/volume] in Serum or Plasma TSH BLD Lab Routine Medication management Acquired hypothyroidism Expected: 01/17/2024 (Approximate), Expires: 04/17/2024 [facility] Work Phone: Comment on above: Expected: 01/17/2024 (Approximate), Expires: 04/17/2024 Start: 01-17-2024 End: 04-17-2024 Thyroxine (T4) free [Mass/volume] in Serum or Plasma T4 FREE/FREE THYROX Lab Routine Medication management Acquired hypothyroidism Expected: 01/17/2024 (Approximate), Expires: 04/17/2024 [facility] Work Phone: Comment on above: Expected: 01/17/2024 (Approximate), Expires: 04/17/2024 Start: 12-15-2023 End: 03-15-2024 CBC W Auto Differential panel - Blood [facility] Work Phone: Comment on above: Expected: 12/15/2023 , Expires: 03/15/2024 Start: 12-15-2023 End: 03-15-2024 Thyrotropin [Units/volume] in Serum or Plasma [facility] Work Phone: Comment on above: Expected: 12/15/2023 , Expires: 03/15/2024 Start: 11-09-2023 Hemoglobin A1c/Hemoglobin.total in Blood HBA1C [facility] Start: 11-02-2023 Hepatitis B screening URINE AL BUMIN:CREATININE RATIO [facility] Start: 11-01-2023 3 comp foot exam completed DIABETIC FOOT EXAM [facility] Start: 11-01-2023 ANNUAL PCP TEAM OIL AND GAS DRAFTER ROMY DISEASE VISIT ANNUAL PCP TEAM CHRONIC DISEASE VISIT [facility] Start: 11-01-2023 Diabetic foot examination Diabetic F oot Exam [facility] Start: 10-24-2023 Hepatitis B surface antibody level LDL CHOLESTEROL [facility] Start: 09-27-2023 Hepatitis C antibody , confirmatory test DILATED RETINAL EXAM [facility] Start: 09-11-2023 Behavioral Health Screening Behavioral Health Screening [facility] Start: 08-14-2023 End: 10-14-2023 CBC panel - Blood by Automated count CBC Lab Routine Essential hypertension Controlled type 2 diabetes mellitus without complication, unspecified whether roasterman insulin use (HCC) Expected: 08/14/2023 (Approximate), Expires: 10/14/2023 [facility] Work Phone: Comment on above: Expected: 08/14/2023 (Approximate), Expires: 10/14/2023 Start: 08-14-2023 End: 10-14-2023 Comprehensive metabolic 2000 panel - Serum or Plasma COMP METABOLIC PANEL Lab Routine Essential hypertension Hyperlipidemia, unspecified hyperlipidemia type Controlled type 2 diabetes mellitus without complication, unspecified whether fdc insulin use (HCC) Expected: 08/14/2023 (Approximate), Expires: 10/14/2023 [facility] Work Phone: Comment on above: Expected: 08/14/2023 (Approximate), Expires: 10/14/2023 Start: 08-14-2023 End: 10-14-2023 Hemoglobin A1c in Blood HGB A1C Lab Routine Controlled type 2 diabetes mellitus without complication, unspecified whether fdc insulin use (HCC) Expected: 08/14/2023 (Approximate), Expires: 10/14/2023 [facility] Work Phone: Comment on above: Expected: 08/14/2023 (Approximate), Expires: 10/14/2023 Start: 08-14-2023 End: 10-14-2023 Lipid 1996 panel - Serum or Plasma LIPID PANEL BASIC Lab Routine Hyperlipidemia, unspecified hyperlipidemia type Expected: 08/14/2023 (Approximate), Expires: 10/14/2023 [facility] Work Phone: Comment on above: Expected: 08/14/2023 (Approximate), Expires: 10/14/2023 Start: 08-14-2023 End: 10-14-2023 Thyrotropin [Units/volume] in Serum or Plasma TSH BLD Lab Routine Acquired hypothyroidism Expected: 08/14/2023 (Approximate), Expires: 10/14/2023 [facility] Work Phone: Comment on above: Expected: 08/14/2023 (Approximate), Expires: 10/14/2023 Start: 08-01-2023 ANNUAL PCP TEAM OIL AND GAS DRAFTER ROMY DISEASE VISIT ANNUAL PCP TEAM CHRONIC DISEASE VISIT [facility] Start: 07-26-2023 Hemoglobin A1c/Hemoglobin.total in Blood HBA1C [facility] Start: 07-25-2023 Hepatitis B surface antibody level LDL CHOLESTEROL [facility] Start: 06-15-2023 ANNUAL PCP TEAM OIL AND GAS DRAFTER ROMY DISEASE VISIT ANNUAL PCP TEAM CHRONIC DISEASE VISIT [facility] Start: 05-12-2023 Influenza vaccination INFLUENZA (#1) [facility] Start: 04-23-2023 Hemoglobin A1c/Hemoglobin.total in Blood HBA1C [facility] Start: 04-19-2023 ANNUAL PCP TEAM OIL AND GAS DRAFTER ROMY DISEASE VISIT ANNUAL PCP TEAM CHRONIC DISEASE VISIT [facility] Start: 04-15-2023 Hepatitis B surface antibody level LDL CHOLESTEROL [facility] Start: 03-21-2023 ANNUAL PCP TEAM OIL AND GAS DRAFTER ROMY DISEASE VISIT ANNUAL PCP TEAM CHRONIC DISEASE VISIT [facility] Start: 03-21-2023 BP CONTROLLED (<130/80) BP CONTROLLE D (<130/80) [facility] Start: 01-22-2023 Hemoglobin A1c/Hemoglobin.total in Blood HBA1C [facility] Start: 12-20-2022 Hepatitis B surface antibody level LDL CHOLESTEROL [facility] Start: 11-04-2022 COVID-19 VACCINE (6 - Moderna series) COVID-19 VACCINE (6 - Moderna series) [facility] Start: 11-01-2022 End: 01-01-2023 ALBUMIN/CREAT RATIO RND UR ALBUMIN/CREAT RATIO RND UR Lab Routine Controlled type 2 diabetes mellitus without complication, unspecified whether roasterman insulin use (HCC) Expected: 11/01/2022, Expires: 01/01/2023 [facility] Work Phone: Comment on above: Expected: 11/01/2022 , Expires: 01/01/2023 Start: 10-26-2022 ADVANCE DIRECTIVE DISCUSSION ADVANCE DIRECTIVE DISCUSSION [facility] Comment on above: Postponed from 09/11 (Currently Scheduled) Start: 10-22-2022 3 comp foot exam completed DIABETIC FOOT EXAM [facility] Start: 10-22-2022 Adult depression screening assessment DEPRESSION SCREENING [facility] Start: 10-22-2022 ANNUAL PCP TEAM OIL AND GAS DRAFTER ROMY DISEASE VISIT ANNUAL PCP TEAM CHRONIC DISEASE VISIT [facility] Start: 10-22-2022 BP CONTROLLED (<130/80) BP CONTROLLE D (<130/80) [facility] Start: 10-18-2022 Hepatitis B screening URINE AL BUMIN:CREATININE RATIO [facility] Start: 10-16-2022 Hemoglobin A1c/Hemoglobin.total in Blood HBA1C [facility] Start: 09-11-2022 ADVANCE DIRECTIVE DISCUSSION ADVANCE DIRECTIVE DISCUSSION [facility] Start: 09-11-2022 DEPRESSION ASSESSMENT DEPRESSION ASS ESSMENT [facility] Start: 08-31-2022 End: 10-31-2022 Thyrotropin [Units/volume] in Serum or Plasma TSH BLD Lab Routine Acquired hypothyroidism Expected: 08/31/2022, Expires: 10/31/2022 [facility] Work Phone: Comment on above: Expected: 08/31/2022 , Expires: 10/31/2022 Start: 07-15-2022 End: 09-14-2022 [facility] [place] [facility] Work Phone: Comment on above: Expected: 07/15/2022 , Expires: 09/14/2022 Start: 07-15-2022 End: 09-14-2022 IgE [Units/volume] in Serum or Plasma [facility] Work Phone: Comment on above: Expected: 07/15/2022 , Expires: 09/14/2022 Start: 05-12-2022 Influenza vaccination INFLUENZA (#1) [facility] Start: 04-17-2022 Hemoglobin A1c/Hemoglobin.total in Blood HBA1C [facility] Start: 04-08-2022 Urine microalbumin profile DTAP,TDAP,TD (1 - Tdap) [facility] Comment on above: Postponed from 03/23 (Declined at this time) Start: 04-01-2022 Hepatitis B surface antibody level LDL CHOLESTEROL [facility] Start: 03-11-2022 Patient discharge [facility] Work Phone: Start: 03-10-2022 Application of intermittent pneumatic compression device [facility] Work Phone: Start: 03-10-2022 Following clinical pathway protocol [facility] Work Phone: Start: 03-10-2022 Assessment of risk o f venous thromboembolism [facility] Work Phone: Start: 03-10-2022 Cardiac monitoring [facility] Work Phone: Start: 03-10-2022 Care regimes management [facility] Work Phone: Start: 03-10-2022 Catheterization of vein [facility] Work Phone: Start: 03-10-2022 Continuous pulse oximetry [facility] Work Phone: Start: 03-10-2022 Elevation of head of bed [facility] Work Phone: Start: 03-10-[address] [facility] Work Phone: Start: 03-10-[address] anned interventions [facility] Work Phone: Start: 03-10-2022 Incentive spirometry [facility] Work Phone: Start: 03-10-2022 Insertion of cathete r into peripheral vein [facility] Work Phone: Start: 03-10-2022 Measuring intake and output [facility] Work Phone: Start: 03-10-2022 Notification of physician [facility] Work Phone: Start: 03-10-2022 Oxygen therapy [facility] Work Phone: Start: 03-10-2022 Providing care accor ding to standard [facility] Work Phone: Start: 03-10-2022 Referral to occupati onal therapist [facility] Work Phone: Start: 03-10-2022 Referral to service [facility] Work Phone: Start: 03-10-2022 Tobacco use cessatio n education [facility] Work Phone: Start: 03-10-[address] [facility] Work Phone: Start: 03-10-2022 MRI of brain without contrast Brain without Contrast [facility] Work Phone: Start: 03-10-2022 Admission procedure [facility] Work Phone: Start: 03-10-2022 Oxygen therapy [facility] Work Phone: Start: 03-10-2022 Plain chest X-ray Chest 1 View [facility] Work Phone: Start: 03-10-[address] [facility] Work Phone: Start: 03-10-2022 Thyroid stimulating hormone measurement [facility] Work Phone: Start: 03-08-2022 Hepatitis C antibody , confirmatory test DILATED RETINAL EXAM [facility] Start: 02-17-2022 COVID-19 VACCINE (5 - Booster for Moderna series) COVID-19 VACCINE (5 - Booster for Moderna series) [facility] Start: 09-11-2021 DEPRESSION ASSESSMENT DEPRESSION ASS ESSMENT [facility] Start: 03-23-2012 Urine microalbumin profile DTAP,TDAP,TD (1 - Tdap) [facility] Start: 06-11-2007 Medicare Annual Well ness Visit Medicare Annual Wellness Visit [facility] Start: 2002 Hepatitis B Vaccine (1 of 3 - Risk 3-dose series) Hepatitis B Vaccine (1 of 3 - Risk 3-dose series) [facility] Start: 2002 RSV Vaccine (1 - 1-d ose 60+ series) RSV Vaccine (1 - 1-dose 60+ series) [facility] Start: 1960 Anxiety Screening Anxiety Screening [facility] Start: 1960 Depression Screening Depression Scre ening [facility] End: 03-21-2023 CBC panel - Blood by Automated count CBC Lab Routine Controlled type 2 diabetes mellitus without complication, without long-term current use of insulin (HCC) Every 6 months for 12 Occurrences starting 03/21/2022 until 03/21/2023 [facility] Work Phone: Comment on above: Every 6 months for 1 2 Occurrences starting 03/21/2022 until 03/21/2023 End: 03-21-2023 Comprehensive metabolic 2000 panel - Serum or Plasma COMP METABOLIC PANEL Lab Routine Controlled type 2 diabetes mellitus without complication, without long-term current use of insulin (HCC) Every 6 months for 12 Occurrences starting 03/21/2022 until 03/21/2023 [facility] Work Phone: Comment on above: Every 6 months for 1 2 Occurrences starting 03/21/2022 until 03/21/2023 End: 12-27-2024 CT Chest WO contrast CT CHEST WO IVCON Radiology Routine Follicular bronchiolitis (HCC) Chronic cough 1 Occurrences starting 11/28/2023 until 12/27/2024 [facility] Work Phone: Comment on above: 1 Occurrences starti ng 11/28/2023 until 12/27/2024 CT Chest WO contrast CT CHEST WO IVCON Radiology Routine Follicular bronchiolitis (HCC) Chronic cough 12/05/2023 8:38 AM EDT [facility] Work Phone: End: 03-21-2023 Hemoglobin A1c in Blood HGB A1C Lab Routine Controlled type 2 diabetes mellitus without complication, without long-term current use of insulin (HCC) Every 3 months for 24 Occurrences starting 03/21/2022 until 03/21/2023 [facility] Work Phone: Comment on above: Every 3 months for 2 4 Occurrences starting 03/21/2022 until 03/21/2023 Hemoglobin A1c/Hemoglobin.total in Blood [facility] Work Phone: Influenza virus A an d B RNA and SARS-CoV-2 (COVID-19) N gene panel - Respiratory specimen by DONAVAN with probe detection COVID WITH FLUA+B, ROUTINE Microbiology Routine Acute cough Ordered: 03/21/2022 [facility] Work Phone: Comment on above: Ordered: 03/21/2022 Influenza virus A an d B RNA and SARS-CoV-2 (COVID-19) N gene panel - Respiratory specimen by DONAVAN with probe detection COVID WITH FLUA+B, ROUTINE Microbiology Routine Suspected COVID-19 virus infection Ordered: 06/02/2022 [facility] Work Phone: Comment on above: Ordered: 06/02/2022 End: 03-21-2023 Lipid 1996 panel - Serum or Plasma LIPID PANEL BASIC Lab Routine Controlled type 2 diabetes mellitus without complication, without long-term current use of insulin ([facility]) Every 6 months for 12 Occurrences starting 03/21/2022 until 03/21/2023 [facility] Work Phone: Comment on above: Every 6 months for 1 2 Occurrences starting 03/21/2022 until 03/21/2023 End: 08-30-2024 MADISON SCREENING MADISON SCREENING Radiology Routine Encounter for screening mammogram for malignant neoplasm of breast 1 Occurrences starting 08/01/2023 until 08/30/2024 [facility] Work Phone: Comment on above: 1 Occurrences starti ng 08/01/2023 until 08/30/2024 End: 09-05-2025 MG Breast Screening MADISON SCREENING Radiology Routine Encounter for screening mammogram for breast cancer 1 Occurrences starting 08/06/2024 until 09/05/2025 [facility] Work Phone: Comment on above: 1 Occurrences starti ng 08/06/2024 until 09/05/2025 Patient referral [facility] Work Phone: Radiologic exam ches t 2 views XR CHEST 2V FRONTAL/LAT Radiology Routine Acute cough 03/21/2022 6:55 PM EDT [facility] Work Phone: End: 06-08-2023 Radiologic exam chest 2 views XR CHEST 2V FRONTAL/LAT Radiology Routine Follicular bronchiolitis (HCC) 1 Occurrences starting 05/09/2022 until 06/08/2023 [facility] Work Phone: Comment on above: 1 Occurrences starti ng 05/09/2022 until 06/08/2023 End: 06-08-2023 SPIROMETRY WITH DILATOR IF OBSTRUCTED SPIROMETRY WITH DILATOR IF OBSTRUCTED PFT Routine Follicular bronchiolitis (HCC) 1 Occurrences starting 05/09/2022 until 06/08/2023 [facility] Work Phone: Comment on above: 1 Occurrences starti ng 05/09/2022 until 06/08/2023 SPIROMETRY WITH DILA TOR IF OBSTRUCTED SPIROMETRY WITH DILATOR IF OBSTRUCTED PFT Routine Follicular bronchiolitis (HCC) 11/25/2022 9:43 AM EDT [facility] Work Phone: Thyroid stimulating hormone measurement [facility] Work Phone: End: 03-21-2023 Thyrotropin [Units/volume] in Serum or Plasma TSH BLD Lab Routine Controlled type 2 diabetes mellitus without complication, without long-term current use of insulin (HCC) Every 3 months for 24 Occurrences starting 03/21/2022 until 03/21/2023 [facility] Work Phone: Comment on above: Every 3 months for 2 4 Occurrences starting 03/21/2022 until 03/21/2023 [facility] Immunizations Immunization Date Immunization Notes Care Provider Caren hull 07-13-2024 influenza, high dose seasonal, preservative-free Immunization [place] Work Phone: [facility] 07-13-2024 influenza virus vaccine, unspecified formulation Dorie Click OUTSOLE PARAFFINER.PANEL INSTRUMENT REPAIRER Work Phone: [facility] 06-24-2024 respiratory syncytia l virus (RSV) vaccine, adjuvanted (AREXVY) Immunization [place] Work Phone: [facility] 06-23-2024 respiratory syncytia l virus (RSV) vaccine, adjuvanted (AREXVY) Darin Alonzo MD Work Phone: [facility] 05-09-2024 COVID-19 vaccine (NOVAVAX) Dorie Gill OUTSOLE PARAFFINER.PANEL INSTRUMENT REPAIRER Work Phone: [facility] 02-22-2024 TD(adult) unspecifie d formulation Darleen Orr OUTSOLE PARAFFINER.PANEL INSTRUMENT REPAIRER Work Phone: [facility] 02-22-2024 tetanus and diphther ia toxoids, adsorbed, preservative free, for adult use (5 Lf of tetanus toxoid and 2 Lf of diphtheria toxoid) Darleen Orr OUTSOLE PARAFFINER.PANEL INSTRUMENT REPAIRER Work Phone: [facility] 07-15-2023 influenza (HD-IIV4) vaccine, age 65+ yr, high dose, quadrivalent, PF (FLUZONE HIGH-DOSE) Immunization [place] Work Phone: [facility] 07-15-2023 influenza virus vaccine, unspecified formulation Screen Wstr [facility] 07-02-2022 influenza, high-dose , quadrivalent vaccine (FLUZONE HIGH DOSE QUADRIVALENT) Immunization [place] Work Phone: [facility] 07-02-2022 influenza virus vaccine, unspecified formulation Pamela Aranda MD Work Phone: [facility] 07-03-2021 influenza, high-dose , quadrivalent vaccine (FLUZONE HIGH DOSE QUADRIVALENT) Darin Alonzo MD Work Phone: [facility] Work Phone: 10-29-2020 COVID-19 vaccine, fu ll dose (MODERNA) Darin Alonzo MD Work Phone: [facility] 07-06-2020 zoster vaccine recombinant Darin Alonzo MD Work Phone: [facility] Work Phone: 06-09-2020 influenza, high-dose , quadrivalent vaccine (FLUZONE HIGH DOSE QUADRIVALENT) Darin Alonzo MD Work Phone: [facility] 05-12-2020 zoster vaccine recombinant Darin Alonzo MD Work Phone: [facility] Work Phone: 04-07-2020 zoster vaccine recombinant Darin Alonzo MD Work Phone: [facility] Work Phone: 07-06-2019 influenza, high dose seasonal, preservative-free Darin Alonzo MD Work Phone: [facility] 07-03-2018 influenza, high dose seasonal, preservative-free Darin Alonzo MD Work Phone: [facility] Work Phone: 07-15-2017 influenza, high dose seasonal, preservative-free Darin Alonzo MD Work Phone: [facility] Work Phone: 07-02-2016 influenza, high dose seasonal, preservative-free Darin Alonzo MD Work Phone: [facility] Work Phone: 08-10-2015 pneumococcal polysaccharide vaccine, 23 valent Darin Alonzo MD Work Phone: [facility] 06-11-2015 influenza, high dose seasonal, preservative-free Darin Alonzo MD Work Phone: [facility] Work Phone: 08-11-2014 pneumococcal conjuga te vaccine, 13 valent Darin Alonzo MD Work Phone: [facility] 06-25-2014 influenza, seasonal, injectable Darin Alonzo MD Work Phone: [facility] 06-22-2013 influenza virus vaccine, unspecified formulation Darin Alonzo MD Work Phone: [facility] Work Phone: 06-02-2012 influenza virus vaccine, unspecified formulation Darin Alonzo MD Work Phone: [facility] 03-22-2012 tetanus and diphther ia toxoids, adsorbed, preservative free, for adult use (2 Lf of tetanus toxoid and 2 Lf of diphtheria toxoid) Darin Alonzo MD Work Phone: [facility] 10-25-2011 zoster vaccine, live Darin Alonzo MD Work Phone: [facility] 06-30-2011 influenza virus vaccine, unspecified formulation Darin Alonzo MD Work Phone: [facility] 06-15-2010 influenza virus vaccine, unspecified formulation Darin Alonzo MD Work Phone: [facility] Work Phone: 06-18-2009 influenza virus vaccine, unspecified formulation Darin Alonzo MD Work Phone: [facility] 07-16-2007 influenza virus vaccine, unspecified formulation Darin Alonzo MD Work Phone: [facility] 07-03-2006 influenza virus vaccine, unspecified formulation Darin Alonzo MD Work Phone: [facility] Work Phone: 08-29-2003 pneumococcal polysaccharide vaccine, 23 valent Nakul Patino MD Work Phone: [facility] Payers Date Payer Category Payer Self-pay [id number] 2023 Unknown [id number] 2013 Private Health Insurance [facility] AARP SUPPLEMENT [id number] 2013-Present [phone] [address] [place] [address] Indemnity [id number] 2013 Private Health Insurance [id number] 2007 Medicare MEDICARE MEDICAR E A AND B [id number] 2007-Present [phone] [address] [address] [place] [address] Medicare [id number] 2007 Medicare [id number] 2007 Medicare [id number] Unknown [id number] Social History Date Type Detail Facility Start: 09-27-2013 End: 04-19-2022 Tobacco smoking status NHIS Never smoked tobacco [facility] Work Phone: Start: 11-08-2021 End: 03-07-2025 Alcohol intake Current drinker of alcohol (finding) [facility] Start: 08-10-2012 History SDOH Alcohol Comment Rarely. [facility] Start: 09-27-2013 End: 04-19-2022 Tobacco Comment Parents did not smoke in childhood home. Spouse smoked in home for about 10 years. [facility] Start: 1940 Sex Assigned At Not on file C [facility] Start: 03-10-2022 End: 03-21-2023 Tobacco smoking status NHIS Unknown if ever smoked [facility] Start: 1940 Sex Assigned At Female [facility] Start: 02-28-2022 End: 08-01-2022 Exposure to SARS-CoV-2 (event) Not sure [facility] Work Phone: Start: 09-27-2013 End: 04-19-2022 Tobacco use and exposure Smokeless tobacco non-user [facility] Work Phone: Start: 03-01-2023 End: 09-18-2023 History of Social function [facility] Work Phone: Start: 03-01-2023 End: 09-18-2023 Tobacco use panel [facility] Work Phone: Adult Depression Screening Assessment 0 [facility] Work Phone: Medical Equipment Procedure Code Equipment Code Equipment Original Text Equipment Identifier Dates [id number], [id number], [id number], [id number] Start: 03-26-2021 End: 05-17-2024 Comment on above: Test blood sugar(s) 1 times daily. Dx: Type 2 DM - Controlled E11.9 Insulin: No Test 1 time daily. [id number], [id number] Start: 12-19-2016 Comment on above: [facility] o test strips. To be tested 2 times a day One touch ultra 2, t est strips Test 3 times daily. Dx: E11.9 Insulin: No Goals Date Patient Goal Desired Activity /State Functional Status Date Assessment Result Facility 03-11-2022 Functional status Ambulates;Bath room Privilege [facility] Work Phone: 10-09-2017 Are you deaf, or do you have serious difficulty hearing No 10/09/2017 12:55 PM Christy Bardales PA-C No [facility] 10-09-2017 Are you blind, or do you have serious difficulty seeing, even when wearing glasses No 10/09/2017 12:55 PM Christy Bardales PA-C No [facility] 10-09-2017 Do you have serious difficulty walking or climbing stairs No 10/09/2017 12:55 PM Christy Bardales PA-C No [facility] 10-09-2017 Do you have difficul ty dressing or bathing No 10/09/2017 12:55 PM Christy Bardales PA-C No [facility] 10-09-2017 Because of a physica l, mental, or emotional condition, do you have difficulty doing errands alone such as visiting a physician's office or shopping No 10/09/2017 12:55 PM Christy Bardales PA-C No [facility] Mental Status Date Assessment Result Facility 03-11-2022 Cognitive function Voice/Name [facility] Work Phone: 03-10-2022 Cognitive function Voice/Name [facility] Work Phone: 10-09-2017 Because of a physica l, mental, or emotional condition, do you have serious difficulty concentrating, remembering, or making decisions No 10/09/2017 12:55 PM Christy Bardales PA-C No [facility] Clinical Notes 08-11-2014 to 04-10-2025 Telephone Encounter - Alana Birmingham MA - 04/10/2025 2:26 PM EDTTelephone Encounter - Alana Birmingham MA - 04/10/2025 2:26 PM EDTPatient InstructionsPatient Instructions Note Date & Type Note Facility 04-10-2025 Telephone encounter Note Printed medication list & sent to mail. Alana Birmingham MA [facility] 04-10-2025 Miscellaneous Notes Printed medication list & sent to mail. Alana Birmingham MA Please print a list of her medications And mail to her Regards, Darin Alonzo MD Pt called in and reports she will be flying down to [place] in June. She was wanting to know about taking her pills on her carry on. She said the traveling accountant told her she they want them I the original bottles. The Pt states she wants to put them in the Monday-Monday pill container. Then she wanted to know if she had a print out of what she takes from the providers office would that be good enough, or does she need a letter from her provider. Please call and advise. Aliyah Clemens RN documented in this encounter [facility] 04-10-2025 Telephone encounter Note Please print a list of her medications And mail to her Regards, Darin Alonzo MD [facility] 04-09-2025 Telephone encounter Note Pt called in and reports she will be flying down to [place] in June. She was wanting to know about taking her pills on her carry on. She said the traveling accountant told her she they want them I the original bottles. The Pt states she wants to put them in the Monday-Monday pill container. Then she wanted to know if she had a print out of what she takes from the providers office would that be good enough, or does she need a letter from her provider. Please call and advise. Aliyah Clemens RN [facility] 03-07-2025 Griselda Barajas APRN.OLESYA - 03/07/2025 7:26 AM EDT - Continue pantoprazole each morning at least 30 minutes before breakfast; stop the famotidine. - Take your magnesium supplement (two pills) with your evening meal; do not take magnesium at the same time as pantoprazole or your thyroid pill. - Continue levothyroxine daily; take it on an empty stomach . - Continue trazodone at bedtime for sleep as prescribed. - Maintain your current blood pressure regimen with amlodipine and telmisartan at their usual doses. - Continue metformin, glymepiride, and Januvia for blood sugar control. - Continue your statin therapy for cholesterol management. - Keep using Atrovent nasal spray as directed. - You may stop taking Cecy for now; if you develop sneezing, itchy/watery eyes, or increased coughing, restart it. - Keep up your exercise routine at [employer] six days a week. - A magnesium refill has been sent: a two-week supply to [facility] now and a 180-day supply via [facility] (expected in about one week). - Schedule a full blood panel in three months to check magnesium level, hemoglobin A1c, kidney and liver function, electrolytes, thyroid, and cholesterol. - If you choose to try increasing telmisartan and stopping amlodipine, take two telmisartan daily, stop amlodipine, monitor your blood pressure at home, and notify me via [employer]. - If you wish to trial stopping your statin before the cholesterol recheck, hold it for 4-6 weeks prior to your lab draw. documented in this encounter [facility] 03-07-2025 Note HNO ID: [id number] Author: GRISELDA LEMA APRN.OLESYA Service: ? Author Type: Nurse Practitioner Type: Progress Notes Filed: 03/07/2025 08:35 Note Text: CC: Patient presents with: Recheck: 4 week follow up HPI Shannon Leija is a 84 year old female who presents today for follow up on leg cramps and insomnia. Recording using [employer] software for draft documentation of the visit was discussed with the patient/authorized customer care representative; all questions welcomed and answered. Patient/authorized customer care representative agreed to proceed Muscle Cramps: - was found to be low on magnesium so PPI was stopped, switched to famotidine before bed and started on magnesium supplment. - Taking magnesium supplements twice daily with supper with level improving. Cramps improving Cough: - cough returned shortly after stopping the pantoprazole but improved after restarting pantoprazole last week. - Previously taking famotidine at bedtime. Sleep Disturbance: - Sleep quality improved with reduction in muscle cramps. - Taking trazodone, which is helping with sleep. Lifestyle: - Shannon exercises at [employer] six days a week. - Enjoys attending shows at [employer]. REVIEW OF SYSTEMS General: no fevers, no chills, no night sweats, no recurrent infections, no change in appetite, no change in energy, and no significant changes in weight Respiratory: no cough, no wheezing, no shortness of breath, no hemoptysis Cardiovascular: no chest pain, no chest pressure, no palpitations, and no swelling PAST MEDICAL HISTORY Diagnosis Date BENIGN HYPERTENSION 07/04/2005 Calcaneal spur of foot, left Cough 07/04/2005 chronic DIABETES MELLITUS TYPE II-UNCOMPL 07/04/2005 DIVERTICULOSIS OF COLON W/O BLEED 07/04/2005 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 PAST SURGICAL HISTORY Procedure Laterality Date APPENDECTOMY 05/1980 BONE DENSITY MULTIPLE SITES 11/2000 BRONCHOSCOPY COLONOSCOPY FLX DX W/COLLJ SPEC WHEN PFRMD 11/28/2003 Colonoscopy COLONOSCOPY FLX DX W/COLLJ SPEC WHEN PFRMD 03/13/14 Colonoscopy PAST SURGICAL HISTORY OF 02/1975 right thyroid lobectomy PAST SURGICAL HISTORY OF Left thigh cellulitis, had surgery to repair, states happened aprox 36 years ago. TOTAL ABDOMINAL HYSTERECT W/WO RMVL TUBE OVARY 05/1980 Hysterectomy, BETTY, partial salpingectomy ALLERGIES Lisinopril and Sulfa (Sulfonamide Antibiotics) MEDICATIONS magnesium chloride [address] tablet Take 2 tablets by mouth once daily. magnesium chloride [address] tablet Take 2 tablets by mouth once daily. ipratropium bromide (ATROVENT) 42 mcg (0.06 %) nasal spray USE 2 SPRAYS NASALLY 4 TIMES DAILY Telmisartan 20 mg tablet Take 1 tablet by mouth once daily. traZODone (DESYREL) 50 mg tablet Take 1 tablet by mouth daily at bedtime. amLODIPine (NORVASC) 2.5 mg tablet Take 1 tablet by mouth once daily. glimepiride (AMARYL) 2 mg tablet Take 1 tablet by mouth two times a day with meals. metFORMIN (GLUCOPHAGE) 1,000 mg tablet Take 1 tablet by mouth two times a day. simvastatin (ZOCOR) 10 mg tablet Take 1 tablet by mouth once daily. pantoprazole DR (PROTONIX) 20 mg tablet Take 1 tablet by mouth once daily. fluticasone-salmeterol (WIXELA INHUB) 250-50 mcg/dose inhaler Inhale 1 Puff as instructed two times a day. levothyroxine (SYNTHROID) 125 mcg tablet Take 1 tablet by mouth once daily. Except take 1/2 tablet on Sundays SITagliptin phosphate (JANUVIA) 100 mg tablet Take 1 tablet by mouth once daily. blood sugar diagnostic (ONETOUCH ULTRA TEST) test strip TEST 1 TIME DAILY blood sugar diagnostic (BLOOD GLUCOSE TEST) test strip Test blood sugar(s) 1 times daily. Dx: Type 2 DM - Controlled E11.9 Insulin: No fexofenadine (CECY ALLERGY) 60 mg tablet Take 1 tablet by mouth twice daily. COMPOUNDED PRESCRIPTION One touch ultra 2, test strips Test 3 times daily. Dx: E11.9 Insulin: No COMPOUNDED PRESCRIPTION [facility] [employer] Pro test strips. To be tested 2 times a day Aspirin 81 mg Tab Take 81 mg by mouth. Biebjaosxwlkx-Klsanuwu-Ihrlth (CENTRUM SILVER) tab Take 1 tablet by mouth once daily. FAMILY HISTORY Adopted: Yes Social History Tobacco Use Smoking status: Never Smokeless tobacco: Never Tobacco comments: Parents did not smoke in childhood home. Spouse smoked in home for about 10 years. Vaping Use Vaping status: Never Used Substance Use Topics Alcohol use: Yes Comment: Rarely. Drug use: No PHYSICAL EXAM BP 122/60 Pulse 84 Resp 16 Wt 71.2 kg (157 lb) SpO2 97% BMI 26.13 kg/m? General Appearance: well appearing, in no acute distress, alert Pysch: mood and affect (more content not included)... [facility] 03-07-2025 History of Presen t illness Narrative CC: Patient presents with: Recheck: 4 week follow up HPI Shannon Leija is a 84 year old female who presents today for follow up on leg cramps and insomnia. Recording using [employer] software for draft documentation of the visit was discussed with the patient/authorized customer care representative; all questions welcomed and answered. Patient/authorized customer care representative agreed to proceed Muscle Cramps: - was found to be low on magnesium so PPI was stopped, switched to famotidine before bed and started on magnesium supplment. - Taking magnesium supplements twice daily with supper with level improving. Cramps improving Cough: - cough returned shortly after stopping the pantoprazole but improved after restarting pantoprazole last week. - Previously taking famotidine at bedtime. Sleep Disturbance: - Sleep quality improved with reduction in muscle cramps. - Taking trazodone, which is helping with sleep. Lifestyle: - Shannon exercises at [employer] six days a week. - Enjoys attending shows at [employer]. REVIEW OF SYSTEMS General: no fevers, no chills, no night sweats, no recurrent infections, no change in appetite, no change in energy, and no significant changes in weight Respiratory: no cough, no wheezing, no shortness of breath, no hemoptysis Cardiovascular: no chest pain, no chest pressure, no palpitations, and no swelling PAST MEDICAL HISTORY Diagnosis Date BENIGN HYPERTENSION 07/04/2005 Calcaneal spur of foot, left Cough 07/04/2005 chronic DIABETES MELLITUS TYPE II-UNCOMPL 07/04/2005 DIVERTICULOSIS OF COLON W/O BLEED 07/04/2005 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 PAST SURGICAL HISTORY Procedure Laterality Date APPENDECTOMY 05/1980 BONE DENSITY MULTIPLE SITES 11/2000 BRONCHOSCOPY COLONOSCOPY FLX DX W/COLLJ SPEC WHEN PFRMD 11/28/2003 Colonoscopy COLONOSCOPY FLX DX W/COLLJ SPEC WHEN PFRMD 03/13/14 Colonoscopy PAST SURGICAL HISTORY OF 02/1975 right thyroid lobectomy PAST SURGICAL HISTORY OF Left thigh cellulitis, had surgery to repair, states happened aprox 36 years ago. TOTAL ABDOMINAL HYSTERECT W/WO RMVL TUBE OVARY 05/1980 Hysterectomy, BETTY, partial salpingectomy ALLERGIES Lisinopril and Sulfa (Sulfonamide Antibiotics) MEDICATIONS magnesium chloride [address] tablet Take 2 tablets by mouth once daily. magnesium chloride [address] tablet Take 2 tablets by mouth once daily. ipratropium bromide (ATROVENT) 42 mcg (0.06 %) nasal spray USE 2 SPRAYS NASALLY 4 TIMES DAILY Telmisartan 20 mg tablet Take 1 tablet by mouth once daily. traZODone (DESYREL) 50 mg tablet Take 1 tablet by mouth daily at bedtime. amLODIPine (NORVASC) 2.5 mg tablet Take 1 tablet by mouth once daily. glimepiride (AMARYL) 2 mg tablet Take 1 tablet by mouth two times a day with meals. metFORMIN (GLUCOPHAGE) 1,000 mg tablet Take 1 tablet by mouth two times a day. simvastatin (ZOCOR) 10 mg tablet Take 1 tablet by mouth once daily. pantoprazole DR (PROTONIX) 20 mg tablet Take 1 tablet by mouth once daily. fluticasone-salmeterol (WIXELA INHUB) 250-50 mcg/dose inhaler Inhale 1 Puff as instructed two times a day. levothyroxine (SYNTHROID) 125 mcg tablet Take 1 tablet by mouth once daily. Except take 1/2 tablet on Sundays SITagliptin phosphate (JANUVIA) 100 mg tablet Take 1 tablet by mouth once daily. blood sugar diagnostic (ONETOUCH ULTRA TEST) test strip TEST 1 TIME DAILY blood sugar diagnostic (BLOOD GLUCOSE TEST) test strip Test blood sugar(s) 1 times daily. Dx: Type 2 DM - Controlled E11.9 Insulin: No fexofenadine (CECY ALLERGY) 60 mg tablet Take 1 tablet by mouth twice daily. COMPOUNDED PRESCRIPTION One touch ultra 2, test strips Test 3 times daily. Dx: E11.9 Insulin: No COMPOUNDED PRESCRIPTION [facility] [employer] Pro test strips. To be tested 2 times a day Aspirin 81 mg Tab Take 81 mg by mouth. Zpzmdmjlkyxxa-Slxssgrw-Npyeve (CENTRUM SILVER) tab Take 1 tablet by mouth once daily. FAMILY HISTORY Adopted: Yes Social History Tobacco Use Smoking status: Never Smokeless tobacco: Never Tobacco comments: Parents did not smoke in childhood home. Spouse smoked in home for about 10 years. Vaping Use Vaping status: Never Used Substance Use Topics Alcohol use: Yes Comment: Rarely. Drug use: No PHYSICAL EXAM BP 122/60 Pulse 84 Resp 16 Wt 71.2 kg (157 lb) SpO2 97% BMI 26.13 kg/m General Appearance: well appearing, in no acute distress, alert Pysch: mood and affect broad and appropriate Lungs: Lungs clear to auscultation. No wheezing, rhonchi, rales. Heart: RRR without murmur, gallop, or rubs. No ectopy Health maintenance reviewed with patient: Depression Screening Never done Anxiety Screening Never done Medicare Annual Wellness Visit Never done DTaP,Tdap,Td Vaccine(1 - Tdap) due on 02/23/2024 Diabetic Foot Exam due on 03/21/2025 Covid-19 Vaccine(2023-) due on 10/11/2025 Urine Albumin:Creatinine Ratio due on 06/13/2025 LDL Cholesterol due on 06/13/2025 HbA1C due on 07/05/2025 Dilated Retinal Exam due on 07/16/2025 Bone Density Screening Completed Influenza Vaccine Completed Advance Directive Discussion Completed RSV Vaccine Completed Shingrix Vaccine Completed Pneumococcal Vaccine: 50+ Completed Colorectal Cancer Screening Discontinued DATA REVIEWED: No new labs Assessment/Plan 1. Muscle cramps (R25.2) 2. Hypomagnesemia (E83.42) - Muscle cramps improving; likely secondary to hypomagnesemia exacerbated by pantoprazole use. - Magnesium levels improving; continue magnesium supplementation. - Refill for magnesium sent: 2-week supply to [facility] and 3-month supply to [facility]. - Ordered serum magnesium level recheck in 3 months. - Educated patient on taking magnesium supplements with supper, ensuring separation from pantoprazole administration to optimize absorption. 3. Insomnia, unspecified type (G47.00) - Improved with reduction in muscle cramps and initiation of trazodone. - Continue trazodone as prescribed. 4. Gastroesophageal reflux disease without esophagitis (K21.9) 5. Acute cough (R05.1) - Cough improving with resumption of pantoprazole. - Discontinued famotidine; continue pantoprazole 30 minutes before breakfast. - Discussed potential long-term need for pantoprazole due to recurrent cough. - Advised patient to monitor for any recurrence of cough or reflux symptoms. 6. Hyperlipidemia, unspecified hyperlipidemia type (E78.5) - not discussed today, labs ordered to be reviewed at next visit - Will reassess lipid panel in 3 months. 7. Essential hypertension (I10) - Well controlled on amlodipine and telmisartan. - Discussed potential future adjustment to increase telmisartan and discontinue amlodipine to simplify regimen. Patient wanting to decrease amount of pills she takes. - Patient prefers to maintain current regimen; will reassess in future visits. 8. Acquired hypothyroidism (E03.9) - not discussed today, labs ordered to be reviewed at next visit - Reinforced importance of taking levothyroxine separately from other medications, particularly pantoprazole, to ensure optimal absorption. - Will reassess thyroid function tests in 3 months. 9. Controlled type 2 diabetes mellitus without complication, unspecified whether roasterman insulin use (HCC) (E11.9) - not discussed today, labs ordered to be reviewed at next visit - Will reassess hemoglobin A1c and renal function in 3 months. Prescription instructions reviewed with patient as applicable. Potential red flag symptoms discussed with the patient. Reviewed appropriate action plan to take if red flag symptoms occur. Patient agreeable to treatment plan. Griselda Lema APRN.PANEL INSTRUMENT REPAIRER documented in this encounter [facility] 03-03-2025 Telephone encounter Note Patient to contact office. Lo Miranda LPN [facility] 03-03-2025 Miscellaneous Notes Patient to contact office. Lo Miranda LPN documented in this encounter [facility] 03-03-2025 Telephone encounter Note [facility] 12/13/24 Patient phones requesting refills as follows: Requested Prescriptions Pending Prescriptions Disp Refills ipratropium bromide (ATROVENT) 42 mcg (0.06 %) nasal spray [Pharmacy Med Name: Ipratropium [place] 0.06 % Nasal Solution] 135 mL 3 Sig: USE 2 SPRAYS NASALLY 4 TIMES DAILY Please review and advise. Charisse Lagos LPN [facility] 03-03-2025 Miscellaneous Notes [facility] 12/13/24 Patient phones requesting refills as follows: Requested Prescriptions Pending Prescriptions Disp Refills ipratropium bromide (ATROVENT) 42 mcg (0.06 %) nasal spray [Pharmacy Med Name: Ipratropium [place] 0.06 % Nasal Solution] 135 mL 3 Sig: USE 2 SPRAYS NASALLY 4 TIMES DAILY Please review and advise. Charisse Lagos LPN documented in this encounter [facility] 02-10-2025 Telephone encounter Note Discussed further in visit Griselda Lema APRN.CNP [facility] 02-10-2025 Miscellaneous Notes Discussed further in visit Griselda Lema APRN.CNP Patient notified and states taking medication daily after lunch. Magnesium level actually went down further. Is she tolerating the supplement I sent in and taking as ordered? Thank you Griselda Lema APRN.CNP documented in this encounter [facility] 02-07-2025 Instructions Griselda Lema APRN.CNP - 02/07/2025 7:31 AM EDT - Stop taking pantoprazole starting tomorrow morning. - Begin famotidine (Pepcid) 40 mg at bedtime tonight; prescription sent to [facility] for a 30-day supply. Once your reflux and cough are well controlled, you can reduce famotidine to 20 mg nightly. - Increase your magnesium supplement to two tablets daily. You may take both after lunch (or with dinner if it makes you feel relaxed) or take one tablet twice a day. If your stools become loose, decrease back to one tablet daily. - Continue trazodone at bedtime as prescribed; refills sent to [facility]. - Watch for any return of muscle cramps, heartburn, cough, or loose stools and let us know if these problems persist. documented in this encounter [facility] 02-07-2025 Note HNO ID: [id number] Author: GRISELDA LEMA APRN.CNP Service: ? Author Type: Nurse Practitioner Type: Progress Notes Filed: 02/07/2025 07:44 Note Text: CC: Patient presents with: Recheck: 4 week follow up HPI Shannon Leija is a 84 year old female who presents today for follow up on insomnia which she was started on trazadone for and muscle cramps. Was found to have low magnesium so started on a magnesium supplement. Recording using [employer] software for draft documentation of the visit was discussed with the patient/authorized customer care representative; all questions welcomed and answered. Patient/authorized customer care representative agreed to proceed Hypomagnesemia: - Magnesium levels have decreased from 1.5 to 1.4 even with the supplement. - Taking magnesium supplement daily after lunch. - Denies diarrhea or recent illnesses. Muscle Cramps: - Persistent muscle cramps disrupting sleep. - Currently taking Trazodone for sleep. GERD: - Currently managed with pantoprazole, taken 30 minutes before breakfast. - Denies heartburn, abdominal pain, nausea, or chest pain. - Cough partially caused by GERD well-controlled at this time with PPI and with inhaler from pulmonary department. - No history of taking famotidine. REVIEW OF SYSTEMS General: no fevers, no chills, no night sweats, no recurrent infections, no change in appetite, no change in energy, and no significant changes in weight Respiratory: no cough, no wheezing, no shortness of breath, no hemoptysis Cardiovascular: no chest pain, no chest pressure, no palpitations, and no swelling PAST MEDICAL HISTORY Diagnosis Date BENIGN HYPERTENSION 07/04/2005 Calcaneal spur of foot, left Cough 07/04/2005 chronic DIABETES MELLITUS TYPE II-UNCOMPL 07/04/2005 DIVERTICULOSIS OF COLON W/O BLEED 07/04/2005 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 PAST SURGICAL HISTORY Procedure Laterality Date APPENDECTOMY 05/1980 BONE DENSITY MULTIPLE SITES 11/2000 BRONCHOSCOPY COLONOSCOPY FLX DX W/COLLJ SPEC WHEN PFRMD 11/28/2003 Colonoscopy COLONOSCOPY FLX DX W/COLLJ SPEC WHEN PFRMD 03/13/14 Colonoscopy PAST SURGICAL HISTORY OF 02/1975 right thyroid lobectomy PAST SURGICAL HISTORY OF Left thigh cellulitis, had surgery to repair, states happened aprox 36 years ago. TOTAL ABDOMINAL HYSTERECT W/WO RMVL TUBE OVARY 05/1980 Hysterectomy, BETTY, partial salpingectomy ALLERGIES Lisinopril and Sulfa (Sulfonamide Antibiotics) MEDICATIONS Telmisartan 20 mg tablet Take 1 tablet by mouth once daily. traZODone (DESYREL) 50 mg tablet Take 1 tablet by mouth daily at bedtime. traZODone (DESYREL) 50 mg tablet Take 1 tablet by mouth daily at bedtime. famotidine (PEPCID) 40 mg tablet Take 1 tablet by mouth daily at bedtime. magnesium chloride [address] tablet Take 2 tablets by mouth once daily. amLODIPine (NORVASC) 2.5 mg tablet Take 1 tablet by mouth once daily. glimepiride (AMARYL) 2 mg tablet Take 1 tablet by mouth two times a day with meals. metFORMIN (GLUCOPHAGE) 1,000 mg tablet Take 1 tablet by mouth two times a day. simvastatin (ZOCOR) 10 mg tablet Take 1 tablet by mouth once daily. ipratropium bromide (ATROVENT) 42 mcg (0.06 %) nasal spray Use 2 sprays in the nose four times daily. pantoprazole DR (PROTONIX) 20 mg tablet Take 1 tablet by mouth once daily. fluticasone-salmeterol (WIXELA INHUB) 250-50 mcg/dose inhaler Inhale 1 Puff as instructed two times a day. levothyroxine (SYNTHROID) 125 mcg tablet Take 1 tablet by mouth once daily. Except take 1/2 tablet on Sundays SITagliptin phosphate (JANUVIA) 100 mg tablet Take 1 tablet by mouth once daily. blood sugar diagnostic (ONETOUCH ULTRA TEST) test strip TEST 1 TIME DAILY blood sugar diagnostic (BLOOD GLUCOSE TEST) test strip Test blood sugar(s) 1 times daily. Dx: Type 2 DM - Controlled E11.9 Insulin: No fexofenadine (CECY ALLERGY) 60 mg tablet Take 1 tablet by mouth twice daily. COMPOUNDED PRESCRIPTION One touch ultra 2, test strips Test 3 times daily. Dx: E11.9 Insulin: No COMPOUNDED PRESCRIPTION Easy Touch Health Pro test strips. To be tested 2 times a day Aspirin 81 mg Tab Take 81 mg by mouth. Auxapdnomhltp-Xnkgwsks-Clrsnm (CENTRUM SILVER) tab Take 1 tablet by mouth once daily. FAMILY HISTORY Adopted: Yes Social History Tobacco Use Smoking status: Never Smokeless tobacco: Never Tobacco comments: Parents did not smoke in childhood home. Spouse smoked in home for about 10 years. Vaping Use Vaping status: Never Used Substance Use Topics Alcohol use: Yes Comment: Rarely. Drug use: No PHYSICAL EXAM BP 136/64 Pulse 74 Resp 16 Wt 72.1 k (more content not included)... [facility] 02-07-2025 History of Presen t illness Narrative CC: Patient presents with: Recheck: 4 week follow up HPI Shannon Leija is a 84 year old female who presents today for follow up on insomnia which she was started on trazadone for and muscle cramps. Was found to have low magnesium so started on a magnesium supplement. Recording using [employer] software for draft documentation of the visit was discussed with the patient/authorized customer care representative; all questions welcomed and answered. Patient/authorized customer care representative agreed to proceed Hypomagnesemia: - Magnesium levels have decreased from 1.5 to 1.4 even with the supplement. - Taking magnesium supplement daily after lunch. - Denies diarrhea or recent illnesses. Muscle Cramps: - Persistent muscle cramps disrupting sleep. - Currently taking Trazodone for sleep. GERD: - Currently managed with pantoprazole, taken 30 minutes before breakfast. - Denies heartburn, abdominal pain, nausea, or chest pain. - Cough partially caused by GERD well-controlled at this time with PPI and with inhaler from pulmonary department. - No history of taking famotidine. REVIEW OF SYSTEMS General: no fevers, no chills, no night sweats, no recurrent infections, no change in appetite, no change in energy, and no significant changes in weight Respiratory: no cough, no wheezing, no shortness of breath, no hemoptysis Cardiovascular: no chest pain, no chest pressure, no palpitations, and no swelling PAST MEDICAL HISTORY Diagnosis Date BENIGN HYPERTENSION 07/04/2005 Calcaneal spur of foot, left Cough 07/04/2005 chronic DIABETES MELLITUS TYPE II-UNCOMPL 07/04/2005 DIVERTICULOSIS OF COLON W/O BLEED 07/04/2005 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 PAST SURGICAL HISTORY Procedure Laterality Date APPENDECTOMY 05/1980 BONE DENSITY MULTIPLE SITES 11/2000 BRONCHOSCOPY COLONOSCOPY FLX DX W/COLLJ SPEC WHEN PFRMD 11/28/2003 Colonoscopy COLONOSCOPY FLX DX W/COLLJ SPEC WHEN PFRMD 03/13/14 Colonoscopy PAST SURGICAL HISTORY OF 02/1975 right thyroid lobectomy PAST SURGICAL HISTORY OF Left thigh cellulitis, had surgery to repair, states happened aprox 36 years ago. TOTAL ABDOMINAL HYSTERECT W/WO RMVL TUBE OVARY 05/1980 Hysterectomy, BETTY, partial salpingectomy ALLERGIES Lisinopril and Sulfa (Sulfonamide Antibiotics) MEDICATIONS Telmisartan 20 mg tablet Take 1 tablet by mouth once daily. traZODone (DESYREL) 50 mg tablet Take 1 tablet by mouth daily at bedtime. traZODone (DESYREL) 50 mg tablet Take 1 tablet by mouth daily at bedtime. famotidine (PEPCID) 40 mg tablet Take 1 tablet by mouth daily at bedtime. magnesium chloride [address] tablet Take 2 tablets by mouth once daily. amLODIPine (NORVASC) 2.5 mg tablet Take 1 tablet by mouth once daily. glimepiride (AMARYL) 2 mg tablet Take 1 tablet by mouth two times a day with meals. metFORMIN (GLUCOPHAGE) 1,000 mg tablet Take 1 tablet by mouth two times a day. simvastatin (ZOCOR) 10 mg tablet Take 1 tablet by mouth once daily. ipratropium bromide (ATROVENT) 42 mcg (0.06 %) nasal spray Use 2 sprays in the nose four times daily. pantoprazole DR (PROTONIX) 20 mg tablet Take 1 tablet by mouth once daily. fluticasone-salmeterol (WIXELA INHUB) 250-50 mcg/dose inhaler Inhale 1 Puff as instructed two times a day. levothyroxine (SYNTHROID) 125 mcg tablet Take 1 tablet by mouth once daily. Except take 1/2 tablet on Sundays SITagliptin phosphate (JANUVIA) 100 mg tablet Take 1 tablet by mouth once daily. blood sugar diagnostic (ONETOUCH ULTRA TEST) test strip TEST 1 TIME DAILY blood sugar diagnostic (BLOOD GLUCOSE TEST) test strip Test blood sugar(s) 1 times daily. Dx: Type 2 DM - Controlled E11.9 Insulin: No fexofenadine (CECY ALLERGY) 60 mg tablet Take 1 tablet by mouth twice daily. COMPOUNDED PRESCRIPTION One touch ultra 2, test strips Test 3 times daily. Dx: E11.9 Insulin: No COMPOUNDED PRESCRIPTION Easy Touch Health Pro test strips. To be tested 2 times a day Aspirin 81 mg Tab Take 81 mg by mouth. Cwkkdfttnvbxi-Doekvfiu-Lqzydv (CENTRUM SILVER) tab Take 1 tablet by mouth once daily. FAMILY HISTORY Adopted: Yes Social History Tobacco Use Smoking status: Never Smokeless tobacco: Never Tobacco comments: Parents did not smoke in childhood home. Spouse smoked in home for about 10 years. Vaping Use Vaping status: Never Used Substance Use Topics Alcohol use: Yes Comment: Rarely. Drug use: No PHYSICAL EXAM BP 136/64 Pulse 74 Resp 16 Wt 72.1 kg (159 lb) SpO2 98% BMI 26.46 kg/m General Appearance: well appearing, in no acute distress, alert Pysch: mood and affect broad and appropriate Eyes: conjunctiva pink and moist, no icterus, sclera white, non-injected Lungs: Lungs clear to auscultation. No wheezing, rhonchi, rales. Heart: RRR without murmur, gallop, or rubs. No ectopy Health maintenance reviewed with patient: Depression Screening Never done Anxiety Screening Never done DTaP,Tdap,Td Vaccine(1 - Tdap) due on 02/23/2024 Covid-19 Vaccine() due on 10/11/2025 Diabetic Foot Exam due on 03/21/2025 Urine Albumin:Creatinine Ratio due on 06/13/2025 LDL Cholesterol due on 06/13/2025 HbA1C due on 07/05/2025 Dilated Retinal Exam due on 07/16/2025 Bone Density Screening Completed Influenza Vaccine Completed Advance Directive Discussion Completed RSV Vaccine Completed Shingrix Vaccine Completed Pneumococcal Vaccine: 50+ Completed Colorectal Cancer Screening Discontinued DATA REVIEWED: Most recent labs Assessment/Plan 1. Muscle cramps (R25.2) 2. Hypomagnesemia (E83.42) - Magnesium levels decreased from 1.5 mg/dL to 1.4 mg/dL; likely contributing to muscle cramps. As PPI is possibly cause, will switch PPI to pepcid - Increased magnesium supplementation to two tablets daily; can be taken as two tablets at once or one tablet twice daily. - Advised to monitor for loose stools; if occurs, reduce magnesium to one tablet daily. - Magnesium supplementation to be filled at [facility]. - Will reassess symptoms at follow-up. - recheck mag level in 1-2 weeks. 3. Gastroesophageal reflux disease without esophagitis (K21.9) - Suspect pantoprazole contributing to hypomagnesemia. - Discontinued pantoprazole. - Initiated famotidine 40 mg orally at bedtime; prescription sent to [facility] for 30 days. - Will evaluate efficacy of famotidine in controlling reflux symptoms. 4. Acute cough (R05.1) - Cough well-controlled with current inhaler therapy from pulmonology. - No wheezing, shortness of breath, or other respiratory symptoms reported. 5. Insomnia, unspecified type (G47.00) - Insomnia partially managed with trazodone; however, sleep disrupted by muscle cramps. - Continue trazodone; prescription refilled at [facility]. Short Rx sent to local pharmacy - Discussed potential sedative effect of increased magnesium dose; advised patient may take magnesium with dinner if it aids relaxation and sleep. - Will monitor sleep quality as magnesium levels improve and muscle cramps resolve. Prescription instructions reviewed with patient as applicable. Potential red flag symptoms discussed with the patient. Reviewed appropriate action plan to take if red flag symptoms occur. Patient agreeable to treatment plan. Griselda Lema APRN.CNP documented in this encounter [facility] 02-07-2025 Telephone encounter Note Will discuss further at upcoming appointment Griselda Lema APRN.CNP [facility] 02-07-2025 Miscellaneous Notes Will discuss further at upcoming appointment Griselda Lema APRN.CNP Patient called said she continues to have leg cramps even with taking the magnesium chloride 64mg Patient asking if a higher dose should be called in? She has 7 pills left Can be reached at [phone] Please advise documented in this encounter [facility] 02-05-2025 Telephone encounter Note Patient notified and states taking medication daily after lunch. [facility] 02-05-2025 Telephone encounter Note Magnesium level actually went down further. Is she tolerating the supplement I sent in and taking as ordered? Thank you Griselda Lema APRN.CNP [facility] 02-05-2025 Telephone encounter Note Patient needs to contact office. Appt scheduled 02/07/3025. Lo Miranda LPN [facility] 02-05-2025 Miscellaneous Notes Patient needs to contact office. Appt scheduled 02/07/3025. Lo Miranda LPN documented in this encounter [facility] 02-04-2025 Telephone encounter Note Patient called said she continues to have leg cramps even with taking the magnesium chloride 64mg Patient asking if a higher dose should be called in? She has 7 pills left Can be reached at [phone] Please advise [facility] Work Phone: 01-15-2025 Telephone encounter Note Left message on [employer]. [facility] 01-15-2025 Miscellaneous Notes Left message on [employer]. I sent in a prescription for her to [facility] to take daily. Thank you Griselda Lema APRN.PANEL INSTRUMENT REPAIRER Phoned patient and went over results, notes from Griselda Lema AIRPLANE FLIGHT ATTENDANT with understanding. Patient is asking what dose of Magnesium does she need to be taking? Magnesium is low and possibly the cause of her cramping. Start once a day supplement and recheck in 1-2 weeks after starting this. Thank you Griselda Lema APRN.CNP documented in this encounter [facility] 01-15-2025 Telephone encounter Note I sent in a prescription for her to [facility] to take daily. Thank you Griselda Lema APRN.CNP [facility] 01-13-2025 Telephone encounter Note Phoned patient and went over results, notes from Griselda Lema AIRPLANE FLIGHT ATTENDANT with understanding. Patient is asking what dose of Magnesium does she need to be taking? [facility] 01-13-2025 Telephone encounter Note Magnesium is low and possibly the cause of her cramping. Start once a day supplement and recheck in 1-2 weeks after starting this. Thank you Griselda Lema APRN.CNP [facility] 01-10-2025 Instructions Griselda Lema APRN.CNP - 01/10/2025 7:42 AM EDT Trazodone 30-pill trial has been prescribed for sleep. Use it at bedtime: finish your TV program by 8 pm, perform gentle stretches (especially leg stretches held for 20-30 seconds each), then take the trazodone before lying down to read. Be mindful it may make you feel drowsy in the morning; rise slowly. Continue taking all your current medications as usual, including telmisartan for blood pressure, simvastatin for cholesterol, your thyroid medication (1 tablet daily, with half a tablet on Mondays), GERD medications (pantoprazole and Atrovent), and your diabetes medications (Januvia, metformin, and glimepiride with food). Start incorporating a simple stretching routine after workouts and before bedtime to help reduce leg and hand cramps. Also, increase your water intake if you feel you might be dehydrated. A lab test has been ordered to check your magnesium level to further evaluate the muscle cramps. You can have this done at the lab today; no fasting is required. A follow-up appointment is scheduled in about 4 weeks to review how you are responding to the trazodone and to discuss any further adjustments. documented in this encounter [facility] 01-10-2025 Note HNO ID: [id number] Author: GRISELDA LEMA APRN.CNP Service: ? Author Type: Nurse Practitioner Type: Progress Notes Filed: 01/10/2025 07:59 Note Text: CC: Patient presents with: Recheck: 3 month follow up IFRAH Leija is a 84 year old female who presents today for routine follow up. Recording using [employer] software for draft documentation of the visit was discussed with the patient/authorized customer care representative; all questions welcomed and answered. Patient/authorized customer care representative agreed to proceed Diabetes Mellitus: - Fasting blood glucose readings: 150-160 mg/dL. - No increased thirst, hunger, or urination. - No episodes of hypoglycemia. - Current medications: Januvia, metformin, glimepiride BID with food. Insomnia: - Difficulty staying asleep, waking every couple of hours. - Takes levothyroxine and pantoprazole during nighttime awakenings. - Previously took trazodone for sleep, discontinued a few years ago. - Denies suicidal ideation. - No alcohol or drug use. - Bedtime routine: turns off TV at 20:00, reads until 20:30-21:00 before sleeping. - family has commented on her anxiety and depression related to grief of losing her a year ago and she agrees it may be time to start something for this Leg and Hand Cramps: - Occasional cramps in legs and hands, sometimes waking Shannon at night. - No regular stretching post-workout. - works out every day and started a new additional exercise program for balance - reports drinking plenty of water. GERD: - Currently taking pantoprazole; previously discontinued but resumed due to worsening cough. - No heartburn, dysphagia, or upper abdominal pain. - Recently started on Atrovent nasal spray by Pulmonology, which improved symptoms of her chronic cough but instructed to continue her pantoprazole as well. Hypertension and HLD: - Home BP readings: 110-120 mmHg systolic. - No dizziness, fatigue, palpitations, chest pain, dyspnea, edema, or headaches. - Exercises at [employer] 6 days a week: strength training and cardio on //, cardio on /Mon. - Participating in a 7-week balance class, Stepping [employer], to prevent falls. - Enjoys dining out and cooking; maintains a healthy diet. Hypothyroidism: - Current medication: levothyroxine, 1 tablet daily except half on Mondays. - No weight changes or energy level fluctuations. 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 PAST SURGICAL HISTORY Procedure Laterality Date APPENDECTOMY 05/1980 BONE DENSITY MULTIPLE SITES 11/2000 BRONCHOSCOPY COLONOSCOPY FLX DX W/COLLJ SPEC WHEN PFRMD 11/28/2003 Colonoscopy COLONOSCOPY FLX DX W/COLLJ SPEC WHEN PFRMD 03/13/14 Colonoscopy PAST SURGICAL HISTORY OF 02/1975 right thyroid lobectomy PAST SURGICAL HISTORY OF Left thigh cellulitis, had surgery to repair, states happened aprox 36 years ago. TOTAL ABDOMINAL HYSTERECT W/WO RMVL TUBE OVARY 05/1980 Hysterectomy, BETTY, partial salpingectomy ALLERGIES Lisinopril and Sulfa (Sulfonamide Antibiotics) MEDICATIONS amLODIPine (NORVASC) 2.5 mg tablet Take 1 tablet by mouth once daily. glimepiride (AMARYL) 2 mg tablet Take 1 tablet by mouth two times a day with meals. metFORMIN (GLUCOPHAGE) 1,000 mg tablet Take 1 tablet by mouth two times a day. simvastatin (ZOCOR) 10 mg tablet Take 1 tablet by mouth once daily. traZODone (DESYREL) 50 mg tablet Take 1 tablet by mouth daily at bedtime. ipratropium bromide (ATROVENT) 42 mcg (0.06 %) nasal spray Use 2 sprays in the nose four times daily. pantoprazole DR (PROTONIX) 20 mg tablet Take 1 tablet by mouth once daily. fluticasone-salmeterol (WIXELA INHUB) 250-50 mcg/dose inhaler Inhale 1 Puff as instructed two times a day. levothyroxine (SYNTHROID) 125 mcg tablet Take 1 tablet by mouth once daily. Except take 1/2 tablet on Sundays SITagliptin phosphate (JANUVIA) 100 mg tablet Take 1 tablet by mouth once daily. blood sugar diagnostic (ONETOUCH ULTRA TEST) test strip TEST 1 TIME DAILY Telmisartan 20 mg tablet TAKE 1 TABLET BY MOUTH ONCE DAILY blood sugar diagnostic (BLOOD GLUCOSE TEST) test strip Test blood sugar(s) 1 times daily. Dx: Type 2 DM - Controlled E11.9 Insulin: No fexofenadine (CECY ALLERGY) 60 mg tablet Take 1 tablet by mouth twice daily. COMPOUNDED PRESCRIPTION One touch ultra 2, test strips Test 3 times daily. Dx: E11.9 Insulin: No COMPO (more content not included)... [facility] 01-10-2025 History of Presen t illness Narrative CC: Patient presents with: Recheck: 3 month follow up IFRAH Leija is a 84 year old female who presents today for routine follow up. Recording using [employer] software for draft documentation of the visit was discussed with the patient/authorized customer care representative; all questions welcomed and answered. Patient/authorized customer care representative agreed to proceed Diabetes Mellitus: - Fasting blood glucose readings: 150-160 mg/dL. - No increased thirst, hunger, or urination. - No episodes of hypoglycemia. - Current medications: Januvia, metformin, glimepiride BID with food. Insomnia: - Difficulty staying asleep, waking every couple of hours. - Takes levothyroxine and pantoprazole during nighttime awakenings. - Previously took trazodone for sleep, discontinued a few years ago. - Denies suicidal ideation. - No alcohol or drug use. - Bedtime routine: turns off TV at 20:00, reads until 20:30-21:00 before sleeping. - family has commented on her anxiety and depression related to grief of losing her a year ago and she agrees it may be time to start something for this Leg and Hand Cramps: - Occasional cramps in legs and hands, sometimes waking Shannon at night. - No regular stretching post-workout. - works out every day and started a new additional exercise program for balance - reports drinking plenty of water. GERD: - Currently taking pantoprazole; previously discontinued but resumed due to worsening cough. - No heartburn, dysphagia, or upper abdominal pain. - Recently started on Atrovent nasal spray by Pulmonology, which improved symptoms of her chronic cough but instructed to continue her pantoprazole as well. Hypertension and HLD: - Home BP readings: 110-120 mmHg systolic. - No dizziness, fatigue, palpitations, chest pain, dyspnea, edema, or headaches. - Exercises at [employer] 6 days a week: strength training and cardio on //, cardio on //Mon. - Participating in a 7-week balance class, [employer], to prevent falls. - Enjoys dining out and cooking; maintains a healthy diet. Hypothyroidism: - Current medication: levothyroxine, 1 tablet daily except half on Mondays. - No weight changes or energy level fluctuations. 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 PAST SURGICAL HISTORY Procedure Laterality Date APPENDECTOMY 05/1980 BONE DENSITY MULTIPLE SITES 11/2000 BRONCHOSCOPY COLONOSCOPY FLX DX W/COLLJ SPEC WHEN PFRMD 11/28/2003 Colonoscopy COLONOSCOPY FLX DX W/COLLJ SPEC WHEN PFRMD 03/13/14 Colonoscopy PAST SURGICAL HISTORY OF 02/1975 right thyroid lobectomy PAST SURGICAL HISTORY OF Left thigh cellulitis, had surgery to repair, states happened aprox 36 years ago. TOTAL ABDOMINAL HYSTERECT W/WO RMVL TUBE OVARY 05/1980 Hysterectomy, BETTY, partial salpingectomy ALLERGIES Lisinopril and Sulfa (Sulfonamide Antibiotics) MEDICATIONS amLODIPine (NORVASC) 2.5 mg tablet Take 1 tablet by mouth once daily. glimepiride (AMARYL) 2 mg tablet Take 1 tablet by mouth two times a day with meals. metFORMIN (GLUCOPHAGE) 1,000 mg tablet Take 1 tablet by mouth two times a day. simvastatin (ZOCOR) 10 mg tablet Take 1 tablet by mouth once daily. traZODone (DESYREL) 50 mg tablet Take 1 tablet by mouth daily at bedtime. ipratropium bromide (ATROVENT) 42 mcg (0.06 %) nasal spray Use 2 sprays in the nose four times daily. pantoprazole DR (PROTONIX) 20 mg tablet Take 1 tablet by mouth once daily. fluticasone-salmeterol (WIXELA INHUB) 250-50 mcg/dose inhaler Inhale 1 Puff as instructed two times a day. levothyroxine (SYNTHROID) 125 mcg tablet Take 1 tablet by mouth once daily. Except take 1/2 tablet on Sundays SITagliptin phosphate (JANUVIA) 100 mg tablet Take 1 tablet by mouth once daily. blood sugar diagnostic (ONETOUCH ULTRA TEST) test strip TEST 1 TIME DAILY Telmisartan 20 mg tablet TAKE 1 TABLET BY MOUTH ONCE DAILY blood sugar diagnostic (BLOOD GLUCOSE TEST) test strip Test blood sugar(s) 1 times daily. Dx: Type 2 DM - Controlled E11.9 Insulin: No fexofenadine (CECY ALLERGY) 60 mg tablet Take 1 tablet by mouth twice daily. COMPOUNDED PRESCRIPTION One touch ultra 2, test strips Test 3 times daily. Dx: E11.9 Insulin: No COMPOUNDED PRESCRIPTION Easy Touch Health Pro test strips. To be tested 2 times a day Aspirin 81 mg Tab Take 81 mg by mouth. Iwpzbyuewchuc-Yxvdqubk-Yuiowh (CENTRUM SILVER) tab Take 1 tablet by mouth once daily. FAMILY HISTORY Adopted: Yes Social History Tobacco Use Smoking status: Never Smokeless tobacco: Never Tobacco comments: Parents did not smoke in childhood home. Spouse smoked in home for about 10 years. Vaping Use Vaping status: Never Used Substance Use Topics Alcohol use: Yes Comment: Rarely. Drug use: No PHYSICAL EXAM BP 130/68 Pulse 78 Resp 16 Wt 71.7 kg (158 lb) SpO2 99% BMI 26.29 kg/m General Appearance: well appearing, in no acute distress, alert Skin: darkened area to mid lower lip Neck: Thyroid normal size and symmetric without palpable nodules, Neck supple, No adenopathy Lymph nodes: No cervical lymphadenopathy and No supraclavicular lymphadenopathy Lungs: Lungs clear to auscultation. No wheezing, rhonchi, rales. Heart: RRR without murmur, gallop, or rubs. No ectopy Health maintenance reviewed with patient: Depression Screening Never done Anxiety Screening Never done DTaP,Tdap,Td Vaccine(1 - Tdap) due on 02/23/2024 Covid-19 Vaccine( season) due on 10/11/2025 Diabetic Foot Exam due on 03/21/2025 Urine Albumin:Creatinine Ratio due on 06/13/2025 LDL Cholesterol due on 06/13/2025 HbA1C due on 07/05/2025 Dilated Retinal Exam due on 07/16/2025 Bone Density Screening Completed Influenza Vaccine Completed Advance Directive Discussion Completed RSV Vaccine Completed Shingrix Vaccine Completed Pneumococcal Vaccine: 50+ Completed Colorectal Cancer Screening Discontinued DATA REVIEWED: Most recent labs Assessment/Plan 1. Essential hypertension (I10) - Blood pressure well-controlled on telmisartan; readings in the 110s-120s mmHg. - No reports of dizziness, fatigue, palpitations, chest pain, dyspnea, edema, or headaches. - Continue current medication regimen. - discussed symptoms of low blood pressure as some readings at home are lower end of normal and with all the exercise some meds may need adjusted. - continue with healthy lifestyle 2. Controlled type 2 diabetes mellitus without complication, unspecified whether roasterman insulin use (HCC) (E11.9) - Hemoglobin A1c stable at 7.8%. but would like to get to below 7.5% - patient declined med changes at this time. - Fasting blood glucose levels at home around 150-160 mg/dL. - No symptoms of polyuria, polydipsia, polyphagia, or hypoglycemia. - Continue current medications: Januvia, metformin, and glimepiride. - Discussed potential increase in glimepiride dosage to achieve A1c <7.5%; patient prefers to maintain current regimen. 3. Muscle cramps (R25.2) - Occasional cramps in legs and hands, particularly at night. - Ordered serum magnesium level. - Advised to monitor water intake and incorporate stretching exercises post-workout and before bed. - also monitor when these are occurring to see if certain activities or exercises may be causing these since they are not happening nightly 4. Insomnia, unspecified type (G47.00) - Difficulty maintaining sleep, waking multiple times during the night. - Prescribed trazodone 30 tablets, to be taken at bedtime after stretching exercises. - Educated on potential side effects, including morning drowsiness and mood changes. - Follow-up in 4 weeks to evaluate effectiveness and tolerability. 5. Anxiety and depression (F41.9) 6. Grief (F43.21) - Discussed recent anniversary of 's passing; patient remains active and engaged in social activities. - Initiated trazodone, which may also aid in alleviating anxiety and depressive symptoms especially when able to get appropriate amount of sleep - Patient participating in Stepping On class to improve balance and reduce fall risk which will reduce her anxiety and improve her ability to do tasks at home 7. Acquired hypothyroidism (E03.9) - Thyroid function tests within normal range. - Continue levothyroxine as prescribed: one tablet daily, half tablet on Mondays. 8. Gastroesophageal reflux disease without esophagitis (K21.9) - No current symptoms of heartburn, dysphagia, or epigastric pain. - Continue pantoprazole as prescribed. 9. Hyperlipidemia, unspecified hyperlipidemia type (E78.5) - Continue simvastatin as prescribed. - Recent lab work shows stable lipid levels. 10. Abnormal color of lips (K13.0) - Long-standing discoloration on the lip, previously evaluated by dermatology with no concerns per patient. - No further intervention required at this time. Prescription instructions reviewed with patient as applicable. Potential red flag symptoms discussed with the patient. Reviewed appropriate action plan to take if red flag symptoms occur. Patient agreeable to treatment plan. Griselda Lema APRN.PANEL INSTRUMENT REPAIRER documented in this encounter [facility] 12-23-2024 Telephone encounter Note RX pended for mail order Charisse Lagos LPN [facility] 12-23-2024 Miscellaneous Notes RX pended for mail order Charisse Lagos LPN documented in this encounter [facility] 12-13-2024 History of Presen t illness Narrative Images from the original note were not included. Pulmonary Medicine Patients name: Shannon Leija PCP: Darin Alonzo MD CC: follow-up HPI: Shannon Leija is a 84 year old female never smoker with PMH significant for HTN, DM2, rhinitis with postnasal drip, hypothyroidsim, GERD, HLD, follicular bronchiolitis/BALT. Current inhaled therapy with Wixela. She presents today for follow-up. PILAR 06/2024 with continued chronic cough secondary to GERD, PND and follicular bronchiolitis despite treatment. Previous CT had also showed airtrapping and LABA was offered but declined. Since that visit, her inhaler was increased to Wixela d/t persistent symptoms. She reports some improvement in her symptoms but continues to have random coughing fits. Has PND which she feels like contributes. She uses Flonase but doesn't find it very helpful. Had recently tried to wean Pantoprazole and noted worsening symptoms. Now back on daily dose. Today, patient reports continued cough with occasional phlegm. Denies any other significant respiratory symptoms such as wheezing, chest tightness, or dyspnea. No steroids/antibiotics since her last visit. 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 Allergies: Lisinopril Cough Sulfa (Sulfonamide * Rash Comment:Childhood reaction. Medication List Accurate as of December 10, 2024 5:16 PM. If you have any questions, ask your nurse or doctor. CHANGE how you take these medications traZODone 50 mg tablet Commonly known as: DESYREL TAKE 1 TABLET BY MOUTH DAILY AT BEDTIME What changed: additional instructions CONTINUE taking these medications amLODIPine 2.5 mg tablet Commonly known as: NORVASC TAKE 1 TABLET BY MOUTH ONCE DAILY Aspirin 81 mg Tab * BLOOD GLUCOSE TEST test strip Generic drug: blood sugar diagnostic Test blood sugar(s) 1 times daily. Dx: Type 2 DM - Controlled E11.9 Insulin: No * blood sugar diagnostic test strip Commonly known as: ONETOUCH ULTRA TEST TEST 1 TIME DAILY COMPOUNDED PRESCRIPTION Easy Touch Health Pro test strips. To be tested 2 times a day COMPOUNDED PRESCRIPTION One touch ultra 2, test strips Test 3 times daily. Dx: E11.9 Insulin: No fexofenadine 60 mg tablet Commonly known as: CECY ALLERGY Take 1 tablet by mouth twice daily. fluticasone 50 mcg/actuation nasal spray Commonly known as: FLONASE Use 2 Sprays in each nostril once daily. Rinse mouth after use. for nasal drainage and congestion fluticasone-salmeterol 250-50 mcg/dose inhaler Commonly known as: WIXELA INHUB Inhale 1 Puff as instructed two times a day. glimepiride 2 mg tablet Commonly known as: AMARYL Take 1 tablet by mouth two times a day with meals. levothyroxine 125 mcg tablet Commonly known as: SYNTHROID Take 1 tablet by mouth once daily. Except take 1/2 tablet on Sundays metFORMIN 1,000 mg tablet Commonly known as: GLUCOPHAGE TAKE 1 TABLET BY MOUTH TWICE DAILY Dopzxcvsugrki-Jizyjznn-Tbszhh Tab Commonly known as: CENTRUM SILVER pantoprazole DR 20 mg tablet Commonly known as: PROTONIX Take 1 tablet by mouth once daily. simvastatin 10 mg tablet Commonly known as: ZOCOR Take 1 tablet by mouth once daily. SITagliptin phosphate 100 mg tablet Commonly known as: JANUVIA Take 1 tablet by mouth once daily. Telmisartan 20 mg tablet TAKE 1 TABLET BY MOUTH ONCE DAILY * This list has 2 medication(s) that are the same as other medications prescribed for you. Read the directions carefully, and ask your doctor or other care provider to review them with you. DATA: I personally reviewed and analyzed all labs, radiographs and available pulmonary function testing PFT: 11/[address] Chest: 11/2023 DATE OF EXAM: Dec 05 2023 8:38AM [facility] 0541 - CT CHEST WO IVCON / PROCEDURE REASON: multiple diagnoses * * * * Physician Interpretation * * * * EXAMINATION: CHEST CT WITHOUT CONTRAST CLINICAL HISTORY: Chronic cough Technique: Spiral CT acquisition of the chest from the thoracic inlet to the upper abdomen without contrast. MQ: [id number] CT Radiation dose: Integrated Dose-length product (DLP) for this visit = 250 mGy*cm CT Dose Reduction Employed: Automated exposure control(AEC) and iterative recon Comparison: CT chest 09/29/2010 RESULT: Limitations: None. Lines, tubes, and devices: None. Lung parenchyma and airways: No consolidation. Stable 8 mm groundglass nodule right upper lobe (14:70). Stable 5 mm solid nodule posterior left lower lobe (14:179). No new pulmonary nodules. Mosaic attenuation of the lung parenchyma in the lower lobes. Scattered air trapping on images obtained with free breathing. No dynamic airway collapse. The central airways are patent. Pleural space: No pleural effusion. No pleural thickening. Lower neck, lymph nodes, and mediastinum: The imaged thyroid gland is normal. No lymphadenopathy in the supraclavicular, axillary, mediastinal, or hilar regions. Heart, pericardium, and thoracic vessels: The thoracic aorta and main pulmonary artery are normal in caliber. The cardiac chambers are normal in size. Coronary artery atherosclerotic calcifications are noted, although the study is not optimized for coronary assessment. No pericardial effusion or thickening. Bones and soft tissues: No destructive bone lesion. Chest wall is unremarkable. Upper abdomen: No acute abnormality in the imaged upper abdomen. Cholelithiasis. Distillation Operator (topogram) images: No additional findings. Labs: WBC (k/uL) Date Value 06/13/2024 6.67 10/18/2021 6.42 RBC (m/uL) Date Value 06/13/2024 4.35 10/18/2021 4.36 Hemoglobin (g/dL) Date Value 06/13/2024 12.5 10/18/2021 13.1 Hematocrit (%) Date Value 06/13/2024 39.8 10/18/2021 41.0 Platelet Count (k/uL) Date Value 06/13/2024 252 10/18/2021 227 MPV (fL) Date Value 06/13/2024 10.6 10/18/2021 10.6 Neut% (%) Date Value 07/08/2020 60.7 Neutrophils % (%) Date Value 12/15/2023 61.8 Eosin% (%) Date Value 07/08/2020 2.7 Eosinophils % (%) Date Value 12/15/2023 2.1 Baso% (%) Date Value 07/08/2020 0.6 Basophils % (%) Date Value 12/15/2023 0.7 Abs Neut (ANC) (k/uL) Date Value 07/08/2020 4.03 Abs Neut (k/uL) Date Value 12/15/2023 4.38 Abs [place] (k/uL) Date Value 12/15/2023 0.45 07/08/2020 0.41 Abs Eosin (k/uL) Date Value 12/15/2023 0.15 07/08/2020 0.18 Abs Baso (k/uL) Date Value 12/15/2023 0.05 07/08/2020 0.04 IgE (kU/l) Date Value 07/15/2022 74.4 IMMUNIZATIONS Prevnar - xx Pneumovax 23 - xx Influenza - 07/2024 COVID-19 - xx RSV- 06/2024 Review of Systems Constitutional: Negative for activity change, appetite change, fatigue and unexpected weight change. HENT: Positive for postnasal drip and sore throat. Negative for congestion, mouth sores, sinus pressure and sneezing. Respiratory: Positive for cough. Negative for chest tightness, shortness of breath and wheezing. Cardiovascular: Negative for chest pain, palpitations and leg swelling. Neurological: Negative for dizziness, weakness and light-headedness. BP 130/64 Pulse 82 Resp 17 Wt 70.3 kg (155 lb) SpO2 99% BMI 25.79 kg/m Physical Exam Vitals reviewed. Constitutional: General: She is not in acute distress. Appearance: Normal appearance. She is not ill-appearing. HENT: Head: Normocephalic. Nose: No rhinorrhea. Mouth/Throat: Mouth: Mucous membranes are moist. Pharynx: No oropharyngeal exudate. Cardiovascular: Rate and Rhythm: Normal rate and regular rhythm. Pulmonary: Effort: Pulmonary effort is normal. No respiratory distress. Breath sounds: No wheezing or rhonchi. Musculoskeletal: Right lower leg: No edema. Left lower leg: No edema. Skin: General: Skin is warm and dry. Capillary Refill: Capillary refill takes less than 2 seconds. Neurological: General: No focal deficit present. Mental Status: She is alert. ASSESSMENT/PLAN: 1. Chronic cough - ICD9: 786.2, ICD10: R05.3 (primary diagnosis) - likely multifactorial with bronchiolitis, reflux and PND. - little improvement in cough symptoms after increasing inhaler. - see #4, 5 2. 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 Reports compliance with inhaled therapy, hesitant to adjust inhaled steroid d/t blood sugar. 3. 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 Post-nasal drip - ICD9: 784.91, ICD10: R09.82 - worsening drainage lately. Trial Atrovent nasal spray. 5. Gastroesophageal reflux disease without esophagitis - ICD9: 530.81, ICD10: K21.9 - continue Pantoprazole as prescribed at this time. Denies known GERD symptoms but cough had worsened when she tried to wean off. F/u 6 months Portions of this documentation were copied and pasted from previous office visit notes in order to provide a cohesive continuity of the history. The note has been reviewed and edited and updated as necessary. Dorie Gill APRN.OLESYA I spent a total of 26 minutes on the date of the service which included preparing to see the patient, [id number] patient care, completing clinical documentation, performing a medically appropriate examination, counseling and educating the patient/family/caregiver, and ordering medications, tests, or procedures. documented in this encounter [facility] 12-13-2024 Note HNO ID: [id number] Author: DORIE GILL APRN.OLESYA Service: ? Author Type: Nurse Practitioner Type: Progress Notes Filed: 12/13/2024 12:40 Note Text: Pulmonary Medicine Patients name: Shannon Leija PCP: Darin Alonzo MD CC: follow-up HPI: Shannon Leija is a 84 year old female never smoker with PMH significant for HTN, DM2, rhinitis with postnasal drip, hypothyroidsim, GERD, HLD, follicular bronchiolitis/BALT. Current inhaled therapy with Wixela. She presents today for follow-up. PILAR 06/2024 with continued chronic cough secondary to GERD, PND and follicular bronchiolitis despite treatment. Previous CT had also showed airtrapping and LABA was offered but declined. Since that visit, her inhaler was increased to Wixela d/t persistent symptoms. She reports some improvement in her symptoms but continues to have random coughing fits. Has PND which she feels like contributes. She uses Flonase but doesn't find it very helpful. Had recently tried to wean Pantoprazole and noted worsening symptoms. Now back on daily dose. Today, patient reports continued cough with occasional phlegm. Denies any other significant respiratory symptoms such as wheezing, chest tightness, or dyspnea. No steroids/antibiotics since her last visit. 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 Allergies: Lisinopril Cough Sulfa (Sulfonamide * Rash Comment:Childhood reaction. Medication List Accurate as of December 10, 2024 5:16 PM. If you have any questions, ask your nurse or doctor. CHANGE how you take these medications traZODone 50 mg tablet Commonly known as: DESYREL TAKE 1 TABLET BY MOUTH DAILY AT BEDTIME What changed: additional instructions CONTINUE taking these medications amLODIPine 2.5 mg tablet Commonly known as: NORVASC TAKE 1 TABLET BY MOUTH ONCE DAILY Aspirin 81 mg Tab * BLOOD GLUCOSE TEST test strip Generic drug: blood sugar diagnostic Test blood sugar(s) 1 times daily. Dx: Type 2 DM - Controlled E11.9 Insulin: No * blood sugar diagnostic test strip Commonly known as: Software Spectrum CorporationTOUCH ULTRA TEST TEST 1 TIME DAILY COMPOUNDED PRESCRIPTION Easy Touch Health Pro test strips. To be tested 2 times a day COMPOUNDED PRESCRIPTION One touch ultra 2, test strips Test 3 times daily. Dx: E11.9 Insulin: No fexofenadine 60 mg tablet Commonly known as: CECY ALLERGY Take 1 tablet by mouth twice daily. fluticasone 50 mcg/actuation nasal spray Commonly known as: FLONASE Use 2 Sprays in each nostril once daily. Rinse mouth after use. for nasal drainage and congestion fluticasone-salmeterol 250-50 mcg/dose inhaler Commonly known as: WIXELA INHUB Inhale 1 Puff as instructed two times a day. glimepiride 2 mg tablet Commonly known as: AMARYL Take 1 tablet by mouth two times a day with meals. levothyroxine 125 mcg tablet Commonly known as: SYNTHROID Take 1 tablet by mouth once daily. Except take 1/2 tablet on Sundays metFORMIN 1,000 mg tablet Commonly known as: GLUCOPHAGE TAKE 1 TABLET BY MOUTH TWICE DAILY Ypzvtastxobww-Vzwqgiwd-Ydkfdt Tab Commonly known as: CENTRUM SILVER pantoprazole DR 20 mg tablet Commonly known as: PROTONIX Take 1 tablet by mouth once daily. simvastatin 10 mg tablet Commonly known as: ZOCOR Take 1 tablet by mouth once daily. SITagliptin phosphate 100 mg tablet Commonly known as: JANUVIA Take 1 tablet by mouth once daily. Telmisartan 20 mg tablet TAKE 1 TABLET BY MOUTH ONCE DAILY * This list has 2 medication(s) that are the same as other medications prescribed for you. Read the directions carefully, and ask your doctor or other care provider to review them with you. DATA: I personally reviewed and analyzed all labs, radiographs and available pulmonary function testing PFT: 11/[address] Chest: 11/2023 DATE OF EXAM: Dec 05 2023 8:38AM [facility] 0541 - CT CHEST WO IVCON / PROCEDURE REASON: multiple diagnoses * * * * Physician Interpretation * * * * EXAMINATION: CHEST CT WITHOUT CONTRAST CLINICAL HISTORY: Chronic cough Technique: Spiral CT acquisition of the chest from the thoracic inlet to the upper abdomen without contrast. MQ: [id number]_6 CT Radiation dose: Integrated Dose-length product (DLP) for this visit = 250 mGy*cm CT Dose Reduction Employed: Automated exposure control(AEC) and iterative recon Comparison: CT chest 09/29/2010 RESULT: (more content not included)... [facility] 11-20-2024 Telephone encounter Note Prescription Refill Information The patient has been identified by name and date of : Yes Caregiver verified no other encounters exist for this prescription request: Yes Caregiver confirmed with patient/requestor that no other refills are due, in the near future, with this provider at this time: Yes The last office visit in the department: 10/11/24 Does the patient have a future office visit with this provider/department: Yes (01/10/25) Requested Prescriptions Pending Prescriptions Disp Refills pantoprazole DR (PROTONIX) 20 mg tablet 90 tablet 3 Sig: Take 1 tablet by mouth once daily. Ria Pagan RN November 20, 2024 8:37 AM [facility] 11-20-2024 Miscellaneous Notes Prescription Refill Information The patient has been identified by name and date of : Yes Caregiver verified no other encounters exist for this prescription request: Yes Caregiver confirmed with patient/requestor that no other refills are due, in the near future, with this provider at this time: Yes The last office visit in the department: 10/11/24 Does the patient have a future office visit with this provider/department: Yes (01/10/25) Requested Prescriptions Pending Prescriptions Disp Refills pantoprazole DR (PROTONIX) 20 mg tablet 90 tablet 3 Sig: Take 1 tablet by mouth once daily. Ria Pagan RN November 20, 2024 8:37 AM documented in this encounter [facility] 11-18-2024 Telephone encounter Note Patient calling again to let us know that she had been instructed by PCP recently to begin discontinuing her pantoprazole. She is currently using this every 3 days. Advised patient she should return to daily use- could certainly be contributing to her increased coughing. Will make EB aware. Charisse Lagos LPN [facility] 11-18-2024 Miscellaneous Notes Patient calling again to let us know that she had been instructed by PCP recently to begin discontinuing her pantoprazole. She is currently using this every 3 days. Advised patient she should return to daily use- could certainly be contributing to her increased coughing. Will make EB aware. Charisse Lagos LPN Patient calling with one week history of cough and PND. Cough is forceful and occasionally productive of clear mucus, worst overnight. No fever, chills, or myalgias. Some chest discomfort from continued cough and has had episodes of post tussive emesis. She denies wheezing. Asking if she should be treated for exacerbation? Charisse Lagos LPN documented in this encounter [facility] 11-18-2024 Telephone encounter Note Patient calling with one week history of cough and PND. Cough is forceful and occasionally productive of clear mucus, worst overnight. No fever, chills, or myalgias. Some chest discomfort from continued cough and has had episodes of post tussive emesis. She denies wheezing. Asking if she should be treated for exacerbation? Charisse Lagos LPN [facility] 10-17-2024 Telephone encounter Note Per MyChart message from 12/13/23- patient may benefit from ICC/LABA therapy, but she wanted to continue ICC alone as she had just switched to Arnuity. PILAR 06/14/24- LABA was offered and patient declined as she had just filled a 90 day supply of Arnuity. Please advise. Charisse Lagos LPN [facility] 10-17-2024 Miscellaneous Notes Per MyChart message from 12/13/23- patient may benefit from ICC/LABA therapy, but she wanted to continue ICC alone as she had just switched to Arnuity. PILAR 06/14/24- LABA was offered and patient declined as she had just filled a 90 day supply of Arnuity. Please advise. Charisse Lagos LPN Patient phones to report she has been using arnuity ellipta inhaler but is still coughing. She is wondering if you wan to change her medication. Her prescriptions [facility] to [facility]. She reports having an appointment on 12/13/24 but is available to come in sooner if indicated by the provider. Christy Pratt MA documented in this encounter [facility] 10-17-2024 Telephone encounter Note Patient phones to report she has been using arnuity ellipta inhaler but is still coughing. She is wondering if you wan to change her medication. Her prescriptions go to [facility]. She reports having an appointment on 12/13/24 but is available to come in sooner if indicated by the provider. Christy Pratt MA [facility] 10-11-2024 Note HNO ID: [id number] Author: GRISELDA LEMA APRN.PANEL INSTRUMENT REPAIRER Service: ? Author Type: Nurse Practitioner Type: Progress Notes Filed: 10/11/2024 09:06 Note Text: CC: Patient presents with: Recheck: 3 month follow up HPI Shannon Leija is a 84 year old female who presents today for diabetic follow up. DIABETES MELLITUS: Ms. Leija denies excessive thirst or increased frequency of urination, chest pain or dyspnea , numbness, tingling or pain in extremities, new or unusual visual symptoms, low sugar/hypoglycemic reactions, weight loss/gain, lightheadedness/dizziness, and bowel changes/loose stools. Follows a diabetic diet most of the time. She is compliant with medication(s) and is tolerating med(s) without any side effects. She reports checking her glucose on a once a day schedule with sugars in the fasting 120s-130s range. Patient's last HgA1C was Hemoglobin A1C (%) Date Value 06/13/2024 7.8 10/18/2021 6.8 07/09/2021 8.0 Hemoglobin A1C (POCT) (%) Date Value 10/11/2024 7.8 03/21/2024 7.7 ) Last Ophthalmology exam was within the past 12 months HTN: Ms. Leija denies headache, chest pain, palpitations, dyspnea, and peripheral edema. Patient denies any side effects of her medication(s) and is compliant with their regimen. She does not check BP's generally. Shannon works out regularly 6-7 times per week with cardio and strength training at the gym. She watches her diet for sodium, low fat and low cholesterol most of the time. Last 3 Encounter BP Readings: Date: BP: 10/11/2024 132/68 2024 118/68 03/21/2024 134/68 Lost her last year and admits to struggling over the holiday season as it was difficult without him. Is starting grief sharing class at [facility] soon and hoping this will help. Has no family near but has neighbors that check on her and a friend group she meets at the gym. 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 PAST SURGICAL HISTORY Procedure Laterality Date APPENDECTOMY 05/1980 BONE DENSITY MULTIPLE SITES 11/2000 BRONCHOSCOPY COLONOSCOPY FLX DX W/COLLJ SPEC WHEN PFRMD 11/28/2003 Colonoscopy COLONOSCOPY FLX DX W/COLLJ SPEC WHEN PFRMD 03/13/14 Colonoscopy PAST SURGICAL HISTORY OF 02/1975 right thyroid lobectomy PAST SURGICAL HISTORY OF Left thigh cellulitis, had surgery to repair, states happened aprox 36 years ago. TOTAL ABDOMINAL HYSTERECT W/WO RMVL TUBE OVARY 05/1980 Hysterectomy, BETTY, partial salpingectomy ALLERGIES Lisinopril and Sulfa (Sulfonamide Antibiotics) MEDICATIONS SITagliptin phosphate (JANUVIA) 100 mg tablet Take 1 tablet by mouth once daily. glimepiride (AMARYL) 2 mg tablet Take 1 tablet by mouth two times a day with meals. metFORMIN (GLUCOPHAGE) 1,000 mg tablet TAKE 1 TABLET BY MOUTH TWICE DAILY levothyroxine (SYNTHROID) 125 mcg tablet Take 1 tablet by mouth once daily. Except take 1/2 tablet on Sundays blood sugar diagnostic (ONETOUCH ULTRA TEST) test strip TEST 1 TIME DAILY Telmisartan 20 mg tablet TAKE 1 TABLET BY MOUTH ONCE DAILY amLODIPine (NORVASC) 2.5 mg tablet TAKE 1 TABLET BY MOUTH ONCE DAILY simvastatin (ZOCOR) 10 mg tablet Take 1 tablet by mouth once daily. fluticasone furoate (ARNUITY ELLIPTA) 100 mcg/actuation inhaler Inhale 1 Puff as instructed once daily. pantoprazole DR (PROTONIX) 20 mg tablet TAKE 1 TABLET BY MOUTH DAILY BEFORE BREAKFAST ON AN EMPTY STOMACH 1/2 HOUR BEFORE A MEAL traZODone (DESYREL) 50 mg tablet TAKE 1 TABLET BY MOUTH DAILY AT BEDTIME (Patient taking differently: Take 50 mg by mouth daily at bedtime. As needed) fluticasone (FLONASE) 50 mcg/actuation nasal spray Use 2 Sprays in each nostril once daily. Rinse mouth after use. for nasal drainage and congestion blood sugar diagnostic (BLOOD GLUCOSE TEST) test strip Test blood sugar(s) 1 times daily. Dx: Type 2 DM - Controlled E11.9 Insulin: No fexofenadine (CECY ALLERGY) 60 mg tablet Take 1 tablet by mouth twice daily. COMPOUNDED PRESCRIPTION One touch ultra 2, test strips Test 3 times daily. Dx: E11.9 Insulin: No COMPOUNDED PRESCRIPTION Easy Touch Health Pro test strips. To be tested 2 times a day Aspirin 81 mg Tab Take 81 mg by mouth. Qyyffwetyhszx-Uvjxyxdl-Npljfb (CENTRUM SILVER) tab Take 1 tablet by mouth once daily. FAMILY HISTORY Adopted: Yes Social History Tobacco Use Smoking status: Never Smokeless tobacco: Never Tobacco comments: (more content not included)... [facility] 10-11-2024 History of Presen t illness Narrative CC: Patient presents with: Recheck: 3 month follow up HPI Shannon Leija is a 84 year old female who presents today for diabetic follow up. DIABETES MELLITUS: Ms. Leija denies excessive thirst or increased frequency of urination, chest pain or dyspnea , numbness, tingling or pain in extremities, new or unusual visual symptoms, low sugar/hypoglycemic reactions, weight loss/gain, lightheadedness/dizziness, and bowel changes/loose stools. Follows a diabetic diet most of the time. She is compliant with medication(s) and is tolerating med(s) without any side effects. She reports checking her glucose on a once a day schedule with sugars in the fasting 120s-130s range. Patient's last HgA1C was Hemoglobin A1C (%) Date Value 06/13/2024 7.8 10/18/2021 6.8 07/09/2021 8.0 Hemoglobin A1C (POCT) (%) Date Value 10/11/2024 7.8 03/21/2024 7.7 ) Last Ophthalmology exam was within the past 12 months HTN: Ms. Leija denies headache, chest pain, palpitations, dyspnea, and peripheral edema. Patient denies any side effects of her medication(s) and is compliant with their regimen. She does not check BP's generally. Shannon works out regularly 6-7 times per week with cardio and strength training at the gym. She watches her diet for sodium, low fat and low cholesterol most of the time. Last 3 Encounter BP Readings: Date: BP: 10/11/2024 132/68 2024 118/68 03/21/2024 134/68 Lost her last year and admits to struggling over the holiday season as it was difficult without him. Is starting grief sharing class at [facility] soon and hoping this will help. Has no family near but has neighbors that check on her and a friend group she meets at the gym. 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 PAST SURGICAL HISTORY Procedure Laterality Date APPENDECTOMY 05/1980 BONE DENSITY MULTIPLE SITES 11/2000 BRONCHOSCOPY COLONOSCOPY FLX DX W/COLLJ SPEC WHEN PFRMD 11/28/2003 Colonoscopy COLONOSCOPY FLX DX W/COLLJ SPEC WHEN PFRMD 03/13/14 Colonoscopy PAST SURGICAL HISTORY OF 02/1975 right thyroid lobectomy PAST SURGICAL HISTORY OF Left thigh cellulitis, had surgery to repair, states happened aprox 36 years ago. TOTAL ABDOMINAL HYSTERECT W/WO RMVL TUBE OVARY 05/1980 Hysterectomy, BETTY, partial salpingectomy ALLERGIES Lisinopril and Sulfa (Sulfonamide Antibiotics) MEDICATIONS SITagliptin phosphate (JANUVIA) 100 mg tablet Take 1 tablet by mouth once daily. glimepiride (AMARYL) 2 mg tablet Take 1 tablet by mouth two times a day with meals. metFORMIN (GLUCOPHAGE) 1,000 mg tablet TAKE 1 TABLET BY MOUTH TWICE DAILY levothyroxine (SYNTHROID) 125 mcg tablet Take 1 tablet by mouth once daily. Except take 1/2 tablet on Sundays blood sugar diagnostic (ONETOUCH ULTRA TEST) test strip TEST 1 TIME DAILY Telmisartan 20 mg tablet TAKE 1 TABLET BY MOUTH ONCE DAILY amLODIPine (NORVASC) 2.5 mg tablet TAKE 1 TABLET BY MOUTH ONCE DAILY simvastatin (ZOCOR) 10 mg tablet Take 1 tablet by mouth once daily. fluticasone furoate (ARNUITY ELLIPTA) 100 mcg/actuation inhaler Inhale 1 Puff as instructed once daily. pantoprazole DR (PROTONIX) 20 mg tablet TAKE 1 TABLET BY MOUTH DAILY BEFORE BREAKFAST ON AN EMPTY STOMACH 1/2 HOUR BEFORE A MEAL traZODone (DESYREL) 50 mg tablet TAKE 1 TABLET BY MOUTH DAILY AT BEDTIME (Patient taking differently: Take 50 mg by mouth daily at bedtime. As needed) fluticasone (FLONASE) 50 mcg/actuation nasal spray Use 2 Sprays in each nostril once daily. Rinse mouth after use. for nasal drainage and congestion blood sugar diagnostic (BLOOD GLUCOSE TEST) test strip Test blood sugar(s) 1 times daily. Dx: Type 2 DM - Controlled E11.9 Insulin: No fexofenadine (CECY ALLERGY) 60 mg tablet Take 1 tablet by mouth twice daily. COMPOUNDED PRESCRIPTION One touch ultra 2, test strips Test 3 times daily. Dx: E11.9 Insulin: No COMPOUNDED PRESCRIPTION Easy Touch Health Pro test strips. To be tested 2 times a day Aspirin 81 mg Tab Take 81 mg by mouth. Jbmkbwcwoycru-Sjnoozbl-Zclejh (CENTRUM SILVER) tab Take 1 tablet by mouth once daily. FAMILY HISTORY Adopted: Yes Social History Tobacco Use Smoking status: Never Smokeless tobacco: Never Tobacco comments: Parents did not smoke in childhood home. Spouse smoked in home for about 10 years. Vaping Use Vaping status: Never Used Substance Use Topics Alcohol use: Yes Comment: Rarely. Drug use: No PHYSICAL EXAM BP 132/68 Pulse 84 Resp 16 Wt 71.2 kg (157 lb) SpO2 98% BMI 26.13 kg/m General Appearance: well appearing, in no acute distress, alert Eyes: conjunctiva pink and moist, no icterus, sclera white, non-injected Lungs: Lungs clear to auscultation. No wheezing, rhonchi, rales. Heart: RRR without murmur, gallop, or rubs. No ectopy Health maintenance reviewed with patient: Depression Screening Never done Anxiety Screening Never done DTaP,Tdap,Td Vaccine(1 - Tdap) due on 02/23/2024 Advance Directive Discussion due on 09/11/2024 Covid-19 Vaccine(2023- season) due on 10/11/2025 Diabetic Foot Exam due on 03/21/2025 HbA1C due on 04/10/2025 Urine Albumin:Creatinine Ratio due on 06/13/2025 LDL Cholesterol due on 06/13/2025 Dilated Retinal Exam due on 07/16/2025 Bone Density Screening Completed Influenza Vaccine Completed RSV Vaccine Completed Shingrix Vaccine Completed Pneumococcal Vaccine: 50+ Completed Colorectal Cancer Screening Discontinued DATA REVIEWED: No new labs ASSESSMENT/PLAN: 1. Controlled type 2 diabetes mellitus without complication, unspecified whether fdc insulin use (HCC) - ICD9: 250.00, ICD10: E11.9 (primary diagnosis) Stable but no improvement. Decision was made to not increase dose of medications after having discussion with patient. Feels the stress of the holidays and missing her was difficult and has seen better blood sugars recently - Continue current medications - Blood glucose monitoring on a once daily schedule - Counseled on healthy diet and regular exercise - Discussed need for and benefit of weight loss. BMI 26.13 kg/(m^2) - HEMOGLOBIN A1C (POC) 2. Essential hypertension - ICD9: 401.9, ICD10: I10 - Controlled - Continue current medications - Recommend home blood pressure monitoring, to bring results to next visit - Encouraged sodium restriction, DASH or Mediterranean diet - Recommend regular aerobic exercise 3. Grief - ICD9: 309.0, ICD10: F43.21 Agree with starting a grief group and recommend counseling as well. Patient declined need for antidepressant at this time and feels overall she is handling this well and just having a rough day. Will call if she changes her mind. Denies thoughts of self harm - Reviewed concept of neurochemical imbalance wth depression/anxiety, treatment options and benefits of counseling in combination with medication. Also reviewed benefits of sleep hygeine, diet and exercise - Instructed patient to contact office or [id number] after-hours promptly should condition worsen or any new symptoms appear. - [facility] and after hours crisis line 4. Acquired hypothyroidism - ICD9: 244.9, ICD10: E03.9 Not discussed today, blood work ordered to be discussed at next appointment - THYROID STIMULATING HORMONE Griselda Lmea APRN.CNP Prescription instructions reviewed with patient as applicable. Potential red flag symptoms discussed with the patient. Reviewed appropriate action plan to take if red flag symptoms occur. Patient agreeable to treatment plan. Griselda Lema APRN.CNP documented in this encounter [facility] 09-19-2024 History of Presen t illness Narrative Radiology Service Progress Note PATIENT NAME: Shannon Leija DATE OF SERVICE: September 19, 2024 TIME: 10:32 AM PATIENT IDENTITY VERIFICATION COMPLETED USING TWO (2) IDENTIFIERS: Name and Date of confirmed by patient verbally. FALL SCREENING: Has the patient had 2 falls in the last year or 1 fall with injury or currently using an Ambulatory Assistive Device (Walker, Cane, Wheelchair, Crutches, etc.)? No PATIENT GENDER DATA: Female. status: : No status: NO. PATIENT RELEVANT IMPLANT DATA REVIEWED: Not Applicable PATIENT PRESENTS WITH AN IMPLANTABLE OR ATTACHED COMPUTER BUILDER: No RADIOLOGY DEPARTMENT: Mammography PERIPHERAL IV DATA: Not applicable SIGNED BY: Poncho Adler September 19, 2024 10:32 AM documented in this encounter [facility] 09-19-2024 Note HNO ID: [id number] Author: REBEKAH GUERRIER Mammo Tech Service: ? Author Type: Floor Tiling Professional Type: Progress Notes Filed: 09/19/2024 10:32 Note Text: Radiology Service Progress Note PATIENT NAME: Shannon Leija DATE OF SERVICE: September 19, 2024 TIME: 10:32 AM PATIENT IDENTITY VERIFICATION COMPLETED USING TWO (2) IDENTIFIERS: Name and Date of confirmed by patient verbally. FALL SCREENING: Has the patient had 2 falls in the last year or 1 fall with injury or currently using an Ambulatory Assistive Device (Walker, Cane, Wheelchair, Crutches, etc.)? No PATIENT GENDER DATA: Female. status: : No status: NO. PATIENT RELEVANT IMPLANT DATA REVIEWED: Not Applicable PATIENT PRESENTS WITH AN IMPLANTABLE OR ATTACHED COMPUTER BUILDER: No RADIOLOGY DEPARTMENT: Mammography PERIPHERAL IV DATA: Not applicable SIGNED BY: Rebekah Guerrier [employer] September 19, 2024 10:32 AM [facility] 09-19-2024 Telephone encounter Note Patient calling and asking about thyroid lab testing results and instructions. Patient Notified: Thyroid levels in normal range. Continue current dosing of levothyroxine. Take care Griselda Lema APRN.PANEL INSTRUMENT REPAIRER Patient voices understanding. Sarina Bobby RN [facility] 09-19-2024 Miscellaneous Notes Patient calling and asking about thyroid lab testing results and instructions. Patient Notified: Thyroid levels in normal range. Continue current dosing of levothyroxine. Take care Griselda Lema APRN.PANEL INSTRUMENT REPAIRER Patient voices understanding. Sarina Bobby RN documented in this encounter [facility] 08-07-2024 Telephone encounter Note Mammogram order placed. Please contact patient to schedule. Arturo Main MA [facility] 08-07-2024 Miscellaneous Notes Mammogram order placed. Please contact patient to schedule. Arturo Main MA Please help her schedule Regards, Darin Alonzo MD Patient calls and states that it is time for her annual mammogram. Patient asking if orders can be placed so that she can get this scheduled? Sarina Bobby RN documented in this encounter [facility] 08-06-2024 Telephone encounter Note Please help her schedule Regards, Darin Alonzo MD [facility] 08-06-2024 Telephone encounter Note Patient calls and states that it is time for her annual mammogram. Patient asking if orders can be placed so that she can get this scheduled? Sarina Bobby RN [facility] 08-05-2024 Telephone encounter Note Patient notified. [facility] 08-05-2024 Miscellaneous Notes Patient notified. TSH still abnormal. Verify she is taking 1 tablet daily. If so, cut one tablet in half once daily and we will recheck in 4-6 weeks. Thank you Griselda Lema APRN.CNP documented in this encounter [facility] 08-05-2024 Telephone encounter Note TSH still abnormal. Verify she is taking 1 tablet daily. If so, cut one tablet in half once daily and we will recheck in 4-6 weeks. Thank you Griselda Lema APRN.CNP [facility] 06-24-2024 Telephone encounter Note Patient notified and Health Maintenance updated. [facility] 06-24-2024 Miscellaneous Notes Patient notified and Health Maintenance updated. No need to get one at this time. Thank you Griselda Lema APRN.CNP Patient calls and wanted office to know that she received her RSV Vaccine today at [facility] (06/24/2024) Patient also was checking with Griselda to see if she needed to get Dtap. Patient states that this was discussed in office that she had gotten a shot about a year ago when [facility]. Patient making sure that she is not supposed to get another one. Please review and advise, Sarina Bobby RN documented in this encounter [facility] 06-24-2024 Telephone encounter Note No need to get one at this time. Thank you Griselda Lema APRN.CNP [facility] 06-24-2024 Telephone encounter Note Patient calls and wanted office to know that she received her RSV Vaccine today at [facility] (06/24/2024) Patient also was checking with Griselda to see if she needed to get Dtap. Patient states that this was discussed in office that she had gotten a shot about a year ago when [facility]. Patient making sure that she is not supposed to get another one. Please review and advise, Sarina Bobby RN [facility] 2024 Note HNO ID: [id number] Author: GRISELDA LEMA APRN.CNP Service: ? Author Type: Nurse Practitioner Type: Progress Notes Filed: 2024 08:00 Note Text: CC: Patient presents with: Recheck: 3 month follow up HPI Shannon Leija is a 84 year old female who presents today for routine follow up. HTN and HLD: Ms. Leija indicates that she is feeling well and denies any symptoms referable to elevated blood pressure. Specifically denies headache, chest pain, palpitations, dyspnea, and peripheral edema. Patient denies any side effects of her medication(s) and is compliant with their regimen. She does not check BP's generally. Shannon works out regularly 6-7 times per week with going to the gym. She watches her diet for sodium, low fat and low cholesterol most of the time. Last 3 Encounter BP Readings: Date: BP: 2024 118/68 03/21/2024 134/68 02/22/2024 169/79 DIABETES MELLITUS: Ms. Leija denies excessive thirst or increased frequency of urination, chest pain or dyspnea , numbness, tingling or pain in extremities, new or unusual visual symptoms, low sugar/hypoglycemic reactions, weight loss/gain, lightheadedness/dizziness, and bowel changes/loose stools. Follows a diabetic diet most of the time. She is compliant with medication(s) and is tolerating med(s) without any side effects. She reports checking her glucose on a once a day schedule with sugars in the fasting 150s range. Patient's last HgA1C was Hemoglobin A1C (%) Date Value 06/13/2024 7.8 12/11/2023 8.3 10/18/2021 6.8 07/09/2021 8.0 Hemoglobin A1C (POCT) (%) Date Value 03/21/2024 7.7 ) Last Ophthalmology exam was within the past 12 months. Needs to schedule annual exam. Hypothyroidism: taking medication as ordered. TSH low. Denies any abnormal changes in weight, energy, palpitations, anxiety, or other signs of abnormal thyroid. 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 PAST SURGICAL HISTORY Procedure Laterality Date APPENDECTOMY 05/1980 BONE DENSITY MULTIPLE SITES 11/2000 BRONCHOSCOPY COLONOSCOPY FLX DX W/COLLJ SPEC WHEN PFRMD 11/28/2003 Colonoscopy COLONOSCOPY FLX DX W/COLLJ SPEC WHEN PFRMD 03/13/14 Colonoscopy PAST SURGICAL HISTORY OF 02/1975 right thyroid lobectomy PAST SURGICAL HISTORY OF Left thigh cellulitis, had surgery to repair, states happened aprox 36 years ago. TOTAL ABDOMINAL HYSTERECT W/WO RMVL TUBE OVARY 05/1980 Hysterectomy, BETTY, partial salpingectomy ALLERGIES Lisinopril and Sulfa (Sulfonamide Antibiotics) MEDICATIONS blood sugar diagnostic ([employer] ULTRA TEST) test strip TEST 1 TIME DAILY Telmisartan 20 mg tablet TAKE 1 TABLET BY MOUTH ONCE DAILY amLODIPine (NORVASC) 2.5 mg tablet TAKE 1 TABLET BY MOUTH ONCE DAILY glimepiride (AMARYL) 2 mg tablet Take 1 tablet by mouth two times a day with meals. levothyroxine (SYNTHROID) 125 mcg tablet Take 1 tablet daily except take 1.5 tablets one day a week simvastatin (ZOCOR) 10 mg tablet Take 1 tablet by mouth once daily. metFORMIN (GLUCOPHAGE) 1,000 mg tablet TAKE 1 TABLET BY MOUTH TWICE DAILY fluticasone furoate (ARNUITY ELLIPTA) 100 mcg/actuation inhaler Inhale 1 Puff as instructed once daily. pantoprazole DR (PROTONIX) 20 mg tablet TAKE 1 TABLET BY MOUTH DAILY BEFORE BREAKFAST ON AN EMPTY STOMACH 1/2 HOUR BEFORE A MEAL SITagliptin phosphate (JANUVIA) 100 mg tablet Take 1 tablet by mouth once daily. traZODone (DESYREL) 50 mg tablet TAKE 1 TABLET BY MOUTH DAILY AT BEDTIME (Patient taking differently: Take 50 mg by mouth daily at bedtime. As needed) fluticasone (FLONASE) 50 mcg/actuation nasal spray Use 2 Sprays in each nostril once daily. Rinse mouth after use. for nasal drainage and congestion blood sugar diagnostic (BLOOD GLUCOSE TEST) test strip Test blood sugar(s) 1 times daily. Dx: Type 2 DM - Controlled E11.9 Insulin: No fexofenadine (CECY ALLERGY) 60 mg tablet Take 1 tablet by mouth twice daily. COMPOUNDED PRESCRIPTION One touch ultra 2, test strips Test 3 times daily. Dx: E11.9 Insulin: No COMPOUNDED PRESCRIPTION Easy Touch Health Pro test strips. To be tested 2 times a day Aspirin 81 mg Tab Take 81 mg by mouth. Rdrbnxuefmsbk-Tqmmmgan-Hymqku (CENTRUM SILVER) tab Take 1 tablet by mouth once daily. FAMILY HISTORY Adopted: Yes Social History Tobacco Use Smoking status: Never Smokeless tobacco: Never Tobacco comments: Daniel (more content not included)... [facility] 2024 History of Presen t illness Narrative CC: Patient presents with: Recheck: 3 month follow up HPI Shannon Leija is a 84 year old female who presents today for routine follow up. HTN and HLD: Ms. Leija indicates that she is feeling well and denies any symptoms referable to elevated blood pressure. Specifically denies headache, chest pain, palpitations, dyspnea, and peripheral edema. Patient denies any side effects of her medication(s) and is compliant with their regimen. She does not check BP's generally. Shannon works out regularly 6-7 times per week with going to the gym. She watches her diet for sodium, low fat and low cholesterol most of the time. Last 3 Encounter BP Readings: Date: BP: 2024 118/68 03/21/2024 134/68 02/22/2024 169/79 DIABETES MELLITUS: Ms. Leija denies excessive thirst or increased frequency of urination, chest pain or dyspnea , numbness, tingling or pain in extremities, new or unusual visual symptoms, low sugar/hypoglycemic reactions, weight loss/gain, lightheadedness/dizziness, and bowel changes/loose stools. Follows a diabetic diet most of the time. She is compliant with medication(s) and is tolerating med(s) without any side effects. She reports checking her glucose on a once a day schedule with sugars in the fasting 150s range. Patient's last HgA1C was Hemoglobin A1C (%) Date Value 06/13/2024 7.8 12/11/2023 8.3 10/18/2021 6.8 07/09/2021 8.0 Hemoglobin A1C (POCT) (%) Date Value 03/21/2024 7.7 ) Last Ophthalmology exam was within the past 12 months. Needs to schedule annual exam. Hypothyroidism: taking medication as ordered. TSH low. Denies any abnormal changes in weight, energy, palpitations, anxiety, or other signs of abnormal thyroid. 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 PAST SURGICAL HISTORY Procedure Laterality Date APPENDECTOMY 05/1980 BONE DENSITY MULTIPLE SITES 11/2000 BRONCHOSCOPY COLONOSCOPY FLX DX W/COLLJ SPEC WHEN PFRMD 11/28/2003 Colonoscopy COLONOSCOPY FLX DX W/COLLJ SPEC WHEN PFRMD 03/13/14 Colonoscopy PAST SURGICAL HISTORY OF 02/1975 right thyroid lobectomy PAST SURGICAL HISTORY OF Left thigh cellulitis, had surgery to repair, states happened aprox 36 years ago. TOTAL ABDOMINAL HYSTERECT W/WO RMVL TUBE OVARY 05/1980 Hysterectomy, BETTY, partial salpingectomy ALLERGIES Lisinopril and Sulfa (Sulfonamide Antibiotics) MEDICATIONS blood sugar diagnostic (Software Spectrum CorporationTOUCH ULTRA TEST) test strip TEST 1 TIME DAILY Telmisartan 20 mg tablet TAKE 1 TABLET BY MOUTH ONCE DAILY amLODIPine (NORVASC) 2.5 mg tablet TAKE 1 TABLET BY MOUTH ONCE DAILY glimepiride (AMARYL) 2 mg tablet Take 1 tablet by mouth two times a day with meals. levothyroxine (SYNTHROID) 125 mcg tablet Take 1 tablet daily except take 1.5 tablets one day a week simvastatin (ZOCOR) 10 mg tablet Take 1 tablet by mouth once daily. metFORMIN (GLUCOPHAGE) 1,000 mg tablet TAKE 1 TABLET BY MOUTH TWICE DAILY fluticasone furoate (ARNUITY ELLIPTA) 100 mcg/actuation inhaler Inhale 1 Puff as instructed once daily. pantoprazole DR (PROTONIX) 20 mg tablet TAKE 1 TABLET BY MOUTH DAILY BEFORE BREAKFAST ON AN EMPTY STOMACH 1/2 HOUR BEFORE A MEAL SITagliptin phosphate (JANUVIA) 100 mg tablet Take 1 tablet by mouth once daily. traZODone (DESYREL) 50 mg tablet TAKE 1 TABLET BY MOUTH DAILY AT BEDTIME (Patient taking differently: Take 50 mg by mouth daily at bedtime. As needed) fluticasone (FLONASE) 50 mcg/actuation nasal spray Use 2 Sprays in each nostril once daily. Rinse mouth after use. for nasal drainage and congestion blood sugar diagnostic (BLOOD GLUCOSE TEST) test strip Test blood sugar(s) 1 times daily. Dx: Type 2 DM - Controlled E11.9 Insulin: No fexofenadine (CECY ALLERGY) 60 mg tablet Take 1 tablet by mouth twice daily. COMPOUNDED PRESCRIPTION One touch ultra 2, test strips Test 3 times daily. Dx: E11.9 Insulin: No COMPOUNDED PRESCRIPTION Easy Touch Health Pro test strips. To be tested 2 times a day Aspirin 81 mg Tab Take 81 mg by mouth. Wwwptqvkqxkph-Npjrhruj-Mbrgag (CENTRUM SILVER) tab Take 1 tablet by mouth once daily. FAMILY HISTORY Adopted: Yes Social History Tobacco Use Smoking status: Never Smokeless tobacco: Never Tobacco comments: Parents did not smoke in childhood home. Spouse smoked in home for about 10 years. Vaping Use Vaping status: Never Used Substance Use Topics Alcohol use: Yes Comment: Rarely. Drug use: No PHYSICAL EXAM BP 118/68 Pulse 80 Resp 16 Wt 71.2 kg (157 lb) SpO2 97% BMI 26.13 kg/m General Appearance: well appearing, in no acute distress, alert Eyes: conjunctiva pink and moist, no icterus, sclera white, non-injected Lungs: Lungs clear to auscultation. No wheezing, rhonchi, rales. Heart: RRR with murmur, gallop, or rubs. No ectopy Health maintenance reviewed with patient: Depression Screening Never done Anxiety Screening Never done DTaP,Tdap,Td Vaccine(1 - Tdap) due on 02/23/2024 Influenza Vaccine(1) due on 05/12/2024 Dilated Retinal Exam due on 07/14/2024 RSV Vaccine(1 - 1-dose 75+ series) due on 08/17/2024 Covid-19 Vaccine(2023-25 season) due on 07/04/2024 HbA1C due on 12/12/2024 Diabetic Foot Exam due on 03/21/2025 Urine Albumin:Creatinine Ratio due on 06/13/2025 LDL Cholesterol due on 06/13/2025 Bone Density Screening Completed Advance Directive Discussion Completed Shingrix Vaccine Completed Pneumococcal Vaccine: 65+ Completed Colorectal Cancer Screening Discontinued DATA REVIEWED: Most recent labs ASSESSMENT/PLAN: 1. Controlled type 2 diabetes mellitus without complication, unspecified whether roasterman insulin use (HCC) - ICD9: 250.00, ICD10: E11.9 (primary diagnosis) - Improving control - Continue current medications - Blood glucose monitoring on a once daily schedule - Counseled on healthy diet and regular exercise - Discussed need for and benefit of weight loss. BMI 26.13 kg/(m^2) 2. Essential hypertension - ICD9: 401.9, ICD10: I10 - Controlled - Continue current medications - Recommend home blood pressure monitoring, to bring results to next visit - Encouraged sodium restriction, DASH or Mediterranean diet - Recommend regular aerobic exercise 3. Hyperlipidemia, unspecified hyperlipidemia type - ICD9: 272.4, ICD10: E78.5 - Controlled - Continue current medications - Counseled on healthy diet and regular exercise - Discussed need for and benefit of weight loss. BMI 26.13 kg/(m^2) 4. Acquired hypothyroidism - ICD9: 244.9, ICD10: E03.9 - decreasing dose - recheck level in 4-6 weeks. - Instructed patient on importance of taking on an empty stomach either first thing in the morning or at bedtime. - LEVOTHYROXINE 125 MCG TABLET - THYROID STIMULATING HORMONE 5. Medication management - ICD9: V58.69, ICD10: Z79.899 - THYROID STIMULATING HORMONE Prescription instructions reviewed with patient as applicable. Potential red flag symptoms discussed with the patient. Reviewed appropriate action plan to take if red flag symptoms occur. Patient agreeable to treatment plan. Griselda Lema APRN.CNP documented in this encounter [facility] 06-14-2024 History of Presen t illness Narrative Images from the original note were not included. 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 Following her PILAR in November, she had chest CT which showed air trapping. LABA was recommended but she continues on Arnuity at this time. Today, patient reports overall doing well. She continues to have a cough but not overly bothersome. Notes that PND and GERD worsens symptoms. Uses Protonix and Flonase. Cough is nonproductive. No wheezing. Denies dyspnea at rest or with exertion. She exercises 6-7 days a week without limitation. No recent illnesses. No need for steroids or antibiotics. No recent hospitalizations or ED visits or upper respiratory infections. Received her COVID vaccine in April. Scheduled to get the Flu vaccine. 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 Allergies: Lisinopril Cough Sulfa (Sulfonamide * Rash Comment:Childhood reaction. Medication List Accurate as of June 11, 2024 9:21 AM. If you have any questions, ask your nurse or doctor. CHANGE how you take these medications traZODone 50 mg tablet Commonly known as: DESYREL TAKE 1 TABLET BY MOUTH DAILY AT BEDTIME What changed: additional instructions CONTINUE taking these medications amLODIPine 2.5 mg tablet Commonly known as: NORVASC TAKE 1 TABLET BY MOUTH ONCE DAILY ARNUITY ELLIPTA 100 mcg/actuation inhaler Generic drug: fluticasone furoate Inhale 1 Puff as instructed once daily. Aspirin 81 mg Tab * BLOOD GLUCOSE TEST test strip Generic drug: blood sugar diagnostic Test blood sugar(s) 1 times daily. Dx: Type 2 DM - Controlled E11.9 Insulin: No * blood sugar diagnostic test strip Commonly known as: ONETOUCH ULTRA TEST TEST 1 TIME DAILY COMPOUNDED PRESCRIPTION Easy Touch Health Pro test strips. To be tested 2 times a day COMPOUNDED PRESCRIPTION One touch ultra 2, test strips Test 3 times daily. Dx: E11.9 Insulin: No fexofenadine 60 mg tablet Commonly known as: CECY ALLERGY Take 1 tablet by mouth twice daily. fluticasone 50 mcg/actuation nasal spray Commonly known as: FLONASE Use 2 Sprays in each nostril once daily. Rinse mouth after use. for nasal drainage and congestion glimepiride 2 mg tablet Commonly known as: AMARYL Take 1 tablet by mouth two times a day with meals. levothyroxine 125 mcg tablet Commonly known as: SYNTHROID Take 1 tablet daily except take 1.5 tablets one day a week metFORMIN 1,000 mg tablet Commonly known as: GLUCOPHAGE TAKE 1 TABLET BY MOUTH TWICE DAILY Qcbphiiqydauv-Uheeufxc-Fhefvl Tab Commonly known as: CENTRUM SILVER pantoprazole DR 20 mg tablet Commonly known as: PROTONIX TAKE 1 TABLET BY MOUTH DAILY BEFORE BREAKFAST ON AN EMPTY STOMACH 1/2 HOUR BEFORE A MEAL simvastatin 10 mg tablet Commonly known as: ZOCOR Take 1 tablet by mouth once daily. SITagliptin phosphate 100 mg tablet Commonly known as: JANUVIA Take 1 tablet by mouth once daily. Telmisartan 20 mg tablet TAKE 1 TABLET BY MOUTH ONCE DAILY * This list has 2 medication(s) that are the same as other medications prescribed for you. Read the directions carefully, and ask your doctor or other care provider to review them with you. DATA: I personally reviewed and analyzed all labs, radiographs and available pulmonary function testing PFT: 11/2022 Spirometry is normal CXR: Last XR Chest - Impression Only XR CHEST 2V FRONTAL/LAT Exam End: 11/07/2022 10:11 AM (Final result) Impression: IMPRESSION: No acute radiographic abnormality. ... CT Chest: 11/2023 IMPRESSION: 1. Mosaic attenuation of the lung parenchyma in the lower lobes which can be seen with small vessels or small airways disease. There is scattered air trapping on images with free breathing. 2. Stable subcentimeter pulmonary nodules 3. No thoracic lymphadenopathy Physics Teacher: SAVITA Transcribe Date/Time: Dec 07 2023 4:07P Dictated by : ARACELI ZARAGOZA MD This examination was interpreted and the report reviewed and electronically signed by: ARACELI ZARAGOZA MD on Dec 07 2023 4:20PM EST Results-Findings * * *Final Report* * * DATE OF EXAM: Dec 05 2023 8:38AM [facility] [id number] - CT CHEST WO IVCON / PROCEDURE REASON: multiple diagnoses * * * * Physician Interpretation * * * * EXAMINATION: CHEST CT WITHOUT CONTRAST CLINICAL HISTORY: Chronic cough Technique: Spiral CT acquisition of the chest from the thoracic inlet to the upper abdomen without contrast. MQ: [id number] CT Radiation dose: Integrated Dose-length product (DLP) for this visit = 250 mGy*cm CT Dose Reduction Employed: Automated exposure control(AEC) and iterative recon Comparison: CT chest 09/29/2010 RESULT: Limitations: None. Lines, tubes, and devices: None. Lung parenchyma and airways: No consolidation. Stable 8 mm groundglass nodule right upper lobe (14:70). Stable 5 mm solid nodule posterior left lower lobe (14:179). No new pulmonary nodules. Mosaic attenuation of the lung parenchyma in the lower lobes. Scattered air trapping on images obtained with free breathing. No dynamic airway collapse. The central airways are patent. Pleural space: No pleural effusion. No pleural thickening. Lower neck, lymph nodes, and mediastinum: The imaged thyroid gland is normal. No lymphadenopathy in the supraclavicular, axillary, mediastinal, or hilar regions. Heart, pericardium, and thoracic vessels: The thoracic aorta and main pulmonary artery are normal in caliber. The cardiac chambers are normal in size. Coronary artery atherosclerotic calcifications are noted, although the study is not optimized for coronary assessment. No pericardial effusion or thickening. Bones and soft tissues: No destructive bone lesion. Chest wall is unremarkable. Upper abdomen: No acute abnormality in the imaged upper abdomen. Cholelithiasis. IMMUNIZATIONS Prevnar - xx Pneumovax 23 - xx Influenza - xx COVID-04/2024 RSV- xx Review of Systems Constitutional: Negative for activity change, appetite change and unexpected weight change. HENT: Positive for postnasal drip. Negative for congestion, mouth sores and sinus pressure. Respiratory: Positive for cough. Negative for chest tightness, shortness of breath and wheezing. Cardiovascular: Negative for chest pain, palpitations and leg swelling. Allergic/Immunologic: Negative for environmental allergies. Neurological: Negative for dizziness, weakness and light-headedness. BP (P) 130/68 Pulse (P) 79 Resp (P) 16 Wt 71.7 kg (158 lb) SpO2 (P) 98% BMI 26.29 kg/m Physical Exam Vitals reviewed. Constitutional: General: She is not in acute distress. Appearance: Normal appearance. She is not ill-appearing. HENT: Head: Normocephalic. Nose: No congestion or rhinorrhea. Mouth/Throat: Mouth: Mucous membranes are moist. Pharynx: No oropharyngeal exudate. Cardiovascular: Rate and Rhythm: Normal rate and regular rhythm. Heart sounds: Murmur heard. Pulmonary: Effort: Pulmonary effort is normal. No respiratory distress. Breath sounds: No wheezing. Musculoskeletal: Right lower leg: No edema. Left lower leg: No edema. Lymphadenopathy: Cervical: No cervical adenopathy. Skin: General: Skin is warm. Capillary Refill: Capillary refill takes less than 2 seconds. Coloration: Skin is not jaundiced. Neurological: General: No focal deficit present. Mental Status: She is alert. ASSESSMENT/PLAN: 1. Chronic cough - ICD9: 786.2, ICD10: R05.3 (primary diagnosis) - symptoms currently controlled - Associated with GERD/PND, continues Flonase and Protonix - continue Arnuity, instructed to rinse mouth well after use 2. 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 PND (post-nasal drip) - ICD9: 784.91, ICD10: R09.82 - continue Flonase 5. Cardiac murmur - ICD9: 785.2, ICD10: R01.1 - patient reports remote hx of tachycardia and known murmur - reportedly had echo many years ago, none currently on file - discussed updating echo, wants to discuss with her PCP next week F/u 6 months Portions of this documentation were copied and pasted from previous office visit notes in order to provide a cohesive continuity of the history. The note has been reviewed and edited and updated as necessary. Dorie Gill APRN.CNP I spent a total of 35 minutes on the date of the service which included preparing to see the patient, [id number] patient care, completing clinical documentation, performing a medically appropriate examination, ordering medications, tests, or procedures, and communicating results to the patient/family/caregiver. documented in this encounter [facility] 06-14-2024 Note HNO ID: [id number] Author: DORIE GILL APRN.CNP Service: ? 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 Following her PILAR in November, she had chest CT which showed air trapping. LABA was recommended but she continues on Arnuity at this time. Today, patient reports overall doing well. She continues to have a cough but not overly bothersome. Notes that PND and GERD worsens symptoms. Uses Protonix and Flonase. Cough is nonproductive. No wheezing. Denies dyspnea at rest or with exertion. She exercises 6-7 days a week without limitation. No recent illnesses. No need for steroids or antibiotics. No recent hospitalizations or ED visits or upper respiratory infections. Received her COVID vaccine in April. Scheduled to get the Flu vaccine. 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 Allergies: Lisinopril Cough Sulfa (Sulfonamide * Rash Comment:Childhood reaction. Medication List Accurate as of June 11, 2024 9:21 AM. If you have any questions, ask your nurse or doctor. CHANGE how you take these medications traZODone 50 mg tablet Commonly known as: DESYREL TAKE 1 TABLET BY MOUTH DAILY AT BEDTIME What changed: additional instructions CONTINUE taking these medications amLODIPine 2.5 mg tablet Commonly known as: NORVASC TAKE 1 TABLET BY MOUTH ONCE DAILY ARNUITY ELLIPTA 100 mcg/actuation inhaler Generic drug: fluticasone furoate Inhale 1 Puff as instructed once daily. Aspirin 81 mg Tab * BLOOD GLUCOSE TEST test strip Generic drug: blood sugar diagnostic Test blood sugar(s) 1 times daily. Dx: Type 2 DM - Controlled E11.9 Insulin: No * blood sugar diagnostic test strip Commonly known as: ONETOUCH ULTRA TEST TEST 1 TIME DAILY COMPOUNDED PRESCRIPTION Easy Touch Health Pro test strips. To be tested 2 times a day COMPOUNDED PRESCRIPTION One touch ultra 2, test strips Test 3 times daily. Dx: E11.9 Insulin: No fexofenadine 60 mg tablet Commonly known as: CECY ALLERGY Take 1 tablet by mouth twice daily. fluticasone 50 mcg/actuation nasal spray Commonly known as: FLONASE Use 2 Sprays in each nostril once daily. Rinse mouth after use. for nasal drainage and congestion glimepiride 2 mg tablet Commonly known as: AMARYL Take 1 tablet by mouth two times a day with meals. levothyroxine 125 mcg tablet Commonly known as: SYNTHROID Take 1 tablet daily except take 1.5 tablets one day a week metFORMIN 1,000 mg tablet Commonly known as: GLUCOPHAGE TAKE 1 TABLET BY MOUTH TWICE DAILY Hnjzagvrpxupz-Mkpzgalb-Zjcuyf Tab Commonly known as: CENTRUM SILVER pantoprazole DR 20 mg tablet Commonly known as: PROTONIX TAKE 1 TABLET BY MOUTH DAILY BEFORE BREAKFAST ON AN EMPTY STOMACH 1/2 HOUR BEFORE A MEAL simvastatin 10 mg tablet Commonly known as: ZOCOR Take 1 tablet by mouth once daily. SITagliptin phosphate 100 mg tablet Commonly known as: JANUVIA Take 1 tablet by mouth once daily. Telmisartan 20 mg tablet TAKE 1 TABLET BY MOUTH ONCE DAILY * This list has 2 medication(s) that are the same as other medications prescribed for you. Read the directions carefully, and ask your doctor or other care provider to review them with you. DATA: I personally reviewed and analyzed all labs, radiographs and available pulmonary function testing PFT: 11/2022 Spirometry is normal CXR: Last XR Chest - Impression Only XR CHEST 2V FRONTAL/LAT Exam End: 11/07/2022 10:11 AM (Final result) Impression: IMPRESSION: No acute radiographic abnormality. ... CT Chest: 11/2023 IMPRESSION: 1. Mosaic attenuation of the lung parenchyma in the lower lobes which can be seen with small vessels or small airways disease. There is scattered air trapping on images with free breathing. 2. Stable subcentimeter pulmonary nodules 3. No thoracic lymphadenopathy Physics Teacher: SAVITA Transcribe Date/Time: Dec 07 2023 4:07P Dictated by : ARACELI ZARAGOZA MD This examination was interpreted and the report reviewed and electronically signed by: ARACELI ZARAGOZA MD on Nov 10 (more content not included)... [facility] 05-17-2024 Telephone encounter Note Prescription Refill Information The patient has been identified by name and date of : Yes Caregiver verified no other encounters exist for this prescription request: Yes Caregiver confirmed with patient/requestor that no other refills are due, in the near future, with this provider at this time: Yes The last office visit in the department: 03/21/24 Does the patient have a future office visit with this provider/department: Yes Requested Prescriptions Pending Prescriptions Disp Refills blood sugar diagnostic (ONETOUCH ULTRA TEST) test strip [Pharmacy Med Name: ONE TOUCH ULTRA BLUE TEST STRP] 100 Strip 3 Sig: TEST 1 TIME DAILY Kathia Hill LPN May 17, 2024 2:40 PM [facility] 05-17-2024 Miscellaneous Notes Prescription Refill Information The patient has been identified by name and date of : Yes Caregiver verified no other encounters exist for this prescription request: Yes Caregiver confirmed with patient/requestor that no other refills are due, in the near future, with this provider at this time: Yes The last office visit in the department: 03/21/24 Does the patient have a future office visit with this provider/department: Yes Requested Prescriptions Pending Prescriptions Disp Refills blood sugar diagnostic (ONETOUCH ULTRA TEST) test strip [Pharmacy Med Name: ONE TOUCH ULTRA BLUE TEST STRP] 100 Strip 3 Sig: TEST 1 TIME DAILY Kathia Hill LPN May 17, 2024 2:40 PM documented in this encounter [facility] 05-16-2024 Telephone encounter Note The patient has been identified by name and date of : Yes Caregiver verified no other encounters exist for this prescription request: Yes Caregiver confirmed with patient/requestor that no other refills are due, in the near future, with this provider at this time: Yes The last office visit in the department: 03/21/2024 Does the patient have a future office visit with this provider/department: Yes 2024 Requested Prescriptions Pending Prescriptions Disp Refills blood sugar diagnostic (ONETOUCH ULTRA TEST) test strip 100 Each 3 Sig: Test 1 time daily. Luisana Curtis LPN May 16, 2024 9:56 AM [facility] 05-16-2024 Miscellaneous Notes The patient has been identified by name and date of : Yes Caregiver verified no other encounters exist for this prescription request: Yes Caregiver confirmed with patient/requestor that no other refills are due, in the near future, with this provider at this time: Yes The last office visit in the department: 03/21/2024 Does the patient have a future office visit with this provider/department: Yes 2024 Requested Prescriptions Pending Prescriptions Disp Refills blood sugar diagnostic (ONETOUCH ULTRA TEST) test strip 100 Each 3 Sig: Test 1 time daily. Luisana Curtis LPN May 16, 2024 9:56 AM documented in this encounter [facility] 04-25-2024 Telephone encounter Note Will watch for forms. [facility] 04-25-2024 Miscellaneous Notes Will watch for forms. Patient calls just to notify office that she saw Dr Chaney this morning at [facility] and ordered diabetic shoes. She just wanted office to know that we would be seeing an order come to us. documented in this encounter [facility] 04-25-2024 Telephone encounter Note Patient calls just to notify office that she saw Dr Chaney this morning at [facility] and ordered diabetic shoes. She just wanted office to know that we would be seeing an order come to us. [facility] 03-21-2024 Instructions Griselda Lema APRN.CNP - 03/21/2024 7:44 AM EDT Call insurance to see if cost of januvia is going to remain in the 400s. documented in this encounter [facility] 03-21-2024 Note HNO ID: [id number] Author: GRISELDA LEMA APRN.CNP Service: ? Author Type: Nurse Practitioner Type: Progress Notes Filed: 03/21/2024 08:12 Note Text: CC: Patient presents with: Recheck: 3 month DM follow up HPI Shannon Leija is a 83 year old female who presents today for diabetic follow up. Recently lost her so dealing with grief. 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 DIABETES MELLITUS: Ms. Leija denies excessive thirst or increased frequency of urination, chest pain or dyspnea , numbness, tingling or pain in extremities, new or unusual visual symptoms, low sugar/hypoglycemic reactions, weight loss/gain, lightheadedness/dizziness, and bowel changes/loose stools. Follows a diabetic diet most of the time. She is compliant with medication(s) and is tolerating med(s) without any side effects. She reports checking her glucose on a once a day schedule with sugars in the fasting 140s-160s range. Patient's last HgA1C was Hemoglobin A1C (%) Date Value 12/11/2023 8.3 08/05/2023 7.7 10/18/2021 6.8 07/09/2021 8.0 ) HTN and HLD: Ms. Leija indicates that she is feeling well and denies any symptoms referable to elevated blood pressure. Specifically denies headache, chest pain, palpitations, dyspnea, and peripheral edema. Patient denies any side effects of her medication(s) and is compliant with their regimen. She does not check BP's generally. Shannon Goes to [employer] almost daily and has friends there she can work out with. She watches her diet for sodium, low fat and low cholesterol most of the time. Last 3 Encounter BP Readings: Date: BP: 03/21/2024 134/68 02/22/2024 169/79 12/15/2023 128/70 GERD: Has been on PPI since 2019 and been controlled well. Would like to consider stopping this. Denies any heartburn, difficulty swallowing, or abdominal pain. Follicular bronchiolitis: Controlled well at this time but has been using her 's handicap placard in the car. Needs one of her own as long distances can increase cough. 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 PAST SURGICAL HISTORY Procedure Laterality Date APPENDECTOMY 05/1980 BONE DENSITY MULTIPLE SITES 11/2000 BRONCHOSCOPY COLONOSCOPY FLX DX W/COLLJ SPEC WHEN PFRMD 11/28/2003 Colonoscopy COLONOSCOPY FLX DX W/COLLJ SPEC WHEN PFRMD 03/13/14 Colonoscopy PAST SURGICAL HISTORY OF 02/1975 right thyroid lobectomy PAST SURGICAL HISTORY OF Left thigh cellulitis, had surgery to repair, states happened aprox 36 years ago. TOTAL ABDOMINAL HYSTERECT W/WO RMVL TUBE OVARY 05/1980 Hysterectomy, BETTY, partial salpingectomy ALLERGIES Lisinopril and Sulfa (Sulfonamide Antibiotics) MEDICATIONS Telmisartan 20 mg tablet TAKE 1 TABLET BY MOUTH ONCE DAILY amLODIPine (NORVASC) 2.5 mg tablet TAKE 1 TABLET BY MOUTH ONCE DAILY glimepiride (AMARYL) 2 mg tablet Take 1 tablet by mouth two times a day with meals. levothyroxine (SYNTHROID) 125 mcg tablet Take 1 tablet daily except take 1.5 tablets one day a week simvastatin (ZOCOR) 10 mg tablet Take 1 tablet by mouth once daily. metFORMIN (GLUCOPHAGE) 1,000 mg tablet TAKE 1 TABLET BY MOUTH TWICE DAILY fluticasone furoate (ARNUITY ELLIPTA) 100 mcg/actuation inhaler Inhale 1 Puff as instructed once daily. pantoprazole DR (PROTONIX) 20 mg tablet TAKE 1 TABLET BY MOUTH DAILY BEFORE BREAKFAST ON AN EMPTY STOMACH 1/2 HOUR BEFORE A MEAL SITagliptin phosphate (JANUVIA) 100 mg tablet Take 1 tablet by mouth once daily. blood sugar diagnostic (ONETOUCH ULTRA TEST) test strip Test 1 time daily. traZODone (DESYREL) 50 mg tablet TAKE 1 TABLET BY MOUTH DAILY AT BEDTIME (Patient taking differently: Take 50 mg by mouth daily at bedtime. As needed) fluticasone (FLONASE) 50 mcg/actuation nasal spray Use 2 Sprays in each nostril once daily. Rinse mouth after use. for nasal drainage and congestion blood sugar diagnostic (BLOOD GLUCOSE TEST) test strip Test blood sugar(s) 1 times daily. Dx: Type 2 DM - Controlled E11.9 Insulin: No fexofenadine (CECY ALLERGY) 60 mg tablet Take 1 tablet by mouth twice daily. COMPOUNDED PRESCRIPTION One touch ultra 2, test strips Test 3 times daily. Dx: E11.9 Insulin: No COMPOUNDED PRESCRIPTION Easy Touch Health Pro test strips. To be tested 2 times a day Aspirin 81 mg Tab Take 81 (more content not included)... [facility] 03-21-2024 History of Presen t illness Narrative CC: Patient presents with: Recheck: 3 month DM follow up HPI Shannon Leija is a 83 year old female who presents today for diabetic follow up. Recently lost her so dealing with grief. 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 DIABETES MELLITUS: Ms. Leija denies excessive thirst or increased frequency of urination, chest pain or dyspnea , numbness, tingling or pain in extremities, new or unusual visual symptoms, low sugar/hypoglycemic reactions, weight loss/gain, lightheadedness/dizziness, and bowel changes/loose stools. Follows a diabetic diet most of the time. She is compliant with medication(s) and is tolerating med(s) without any side effects. She reports checking her glucose on a once a day schedule with sugars in the fasting 140s-160s range. Patient's last HgA1C was Hemoglobin A1C (%) Date Value 12/11/2023 8.3 08/05/2023 7.7 10/18/2021 6.8 07/09/2021 8.0 ) HTN and HLD: Ms. Leija indicates that she is feeling well and denies any symptoms referable to elevated blood pressure. Specifically denies headache, chest pain, palpitations, dyspnea, and peripheral edema. Patient denies any side effects of her medication(s) and is compliant with their regimen. She does not check BP's generally. Shannon Goes to [employer] almost daily and has friends there she can work out with. She watches her diet for sodium, low fat and low cholesterol most of the time. Last 3 Encounter BP Readings: Date: BP: 03/21/2024 134/68 02/22/2024 169/79 12/15/2023 128/70 GERD: Has been on PPI since 2019 and been controlled well. Would like to consider stopping this. Denies any heartburn, difficulty swallowing, or abdominal pain. Follicular bronchiolitis: Controlled well at this time but has been using her 's handicap placard in the car. Needs one of her own as long distances can increase cough. 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 PAST SURGICAL HISTORY Procedure Laterality Date APPENDECTOMY 05/1980 BONE DENSITY MULTIPLE SITES 11/2000 BRONCHOSCOPY COLONOSCOPY FLX DX W/COLLJ SPEC WHEN PFRMD 11/28/2003 Colonoscopy COLONOSCOPY FLX DX W/COLLJ SPEC WHEN PFRMD 03/13/14 Colonoscopy PAST SURGICAL HISTORY OF 02/1975 right thyroid lobectomy PAST SURGICAL HISTORY OF Left thigh cellulitis, had surgery to repair, states happened aprox 36 years ago. TOTAL ABDOMINAL HYSTERECT W/WO RMVL TUBE OVARY 05/1980 Hysterectomy, BETTY, partial salpingectomy ALLERGIES Lisinopril and Sulfa (Sulfonamide Antibiotics) MEDICATIONS Telmisartan 20 mg tablet TAKE 1 TABLET BY MOUTH ONCE DAILY amLODIPine (NORVASC) 2.5 mg tablet TAKE 1 TABLET BY MOUTH ONCE DAILY glimepiride (AMARYL) 2 mg tablet Take 1 tablet by mouth two times a day with meals. levothyroxine (SYNTHROID) 125 mcg tablet Take 1 tablet daily except take 1.5 tablets one day a week simvastatin (ZOCOR) 10 mg tablet Take 1 tablet by mouth once daily. metFORMIN (GLUCOPHAGE) 1,000 mg tablet TAKE 1 TABLET BY MOUTH TWICE DAILY fluticasone furoate (ARNUITY ELLIPTA) 100 mcg/actuation inhaler Inhale 1 Puff as instructed once daily. pantoprazole DR (PROTONIX) 20 mg tablet TAKE 1 TABLET BY MOUTH DAILY BEFORE BREAKFAST ON AN EMPTY STOMACH 1/2 HOUR BEFORE A MEAL SITagliptin phosphate (JANUVIA) 100 mg tablet Take 1 tablet by mouth once daily. blood sugar diagnostic (ONETOUCH ULTRA TEST) test strip Test 1 time daily. traZODone (DESYREL) 50 mg tablet TAKE 1 TABLET BY MOUTH DAILY AT BEDTIME (Patient taking differently: Take 50 mg by mouth daily at bedtime. As needed) fluticasone (FLONASE) 50 mcg/actuation nasal spray Use 2 Sprays in each nostril once daily. Rinse mouth after use. for nasal drainage and congestion blood sugar diagnostic (BLOOD GLUCOSE TEST) test strip Test blood sugar(s) 1 times daily. Dx: Type 2 DM - Controlled E11.9 Insulin: No fexofenadine (CECY ALLERGY) 60 mg tablet Take 1 tablet by mouth twice daily. COMPOUNDED PRESCRIPTION One touch ultra 2, test strips Test 3 times daily. Dx: E11.9 Insulin: No COMPOUNDED PRESCRIPTION Easy Touch Health Pro test strips. To be tested 2 times a day Aspirin 81 mg Tab Take 81 mg by mouth. Rrkutxicpuojn-Ppakdnyw-Cfvmol (CENTRUM SILVER) tab Take 1 tablet by mouth once daily. FAMILY HISTORY Adopted: Yes Social History Tobacco Use Smoking status: Never Smokeless tobacco: Never Tobacco comments: Parents did not smoke in childhood home. Spouse smoked in home for about 10 years. Vaping Use Vaping Use: Never used Substance Use Topics Alcohol use: Yes Comment: Rarely. Drug use: No PHYSICAL EXAM BP 134/68 Pulse 99 Resp 16 Wt 68.9 kg (152 lb) SpO2 99% BMI 25.29 kg/m General Appearance: well appearing, in no acute distress, alert Pysch: mood and affect broad and appropriate, tearful when discussing loss of Eyes: conjunctiva pink and moist, no icterus, sclera white, non-injected Lungs: Lungs clear to auscultation. No wheezing, rhonchi, rales. Heart: RRR without murmur, gallop, or rubs. No ectopy Extremities: No deformities, edema, skin discoloration, clubbing or cyanosis. Good capillary refill. Feet:Shoes and socks removed, decreased distal pulses, sensitive to 10 gm monofilament, and vibratory perception normal Health maintenance reviewed with patient: Behavioral Health Screening Never done Diabetic Foot Exam due on 11/01/2023 Urine Albumin:Creatinine Ratio due on 11/02/2023 HbA1C due on 03/11/2024 DTaP,Tdap,Td Vaccine(1 - Tdap) due on 02/23/2024 RSV Vaccine(1 - 1-dose 60+ series) due on 08/17/2024 Influenza Vaccine(1) due on 05/12/2024 Dilated Retinal Exam due on 07/14/2024 LDL Cholesterol due on 08/05/2024 Bone Density Screening Completed Advance Directive Discussion Completed Shingrix Vaccine Completed Covid-19 Vaccine Completed Pneumococcal Vaccine: 65+ Completed Colorectal Cancer Screening Discontinued DATA REVIEWED: No new labs ASSESSMENT/PLAN: 1. Controlled type 2 diabetes mellitus without complication, unspecified whether roasterman insulin use (HCC) - ICD9: 250.00, ICD10: E11.9 (primary diagnosis) - Controlled - Continue current medications- bryce andrews increasing. Is going to call insurance to see if cost is going to continue so we can evaluate other options - Blood glucose monitoring on a once daily schedule - Counseled on healthy diet and regular exercise - Discussed need for and benefit of weight loss. BMI 25.29 kg/(m^2) - HEMOGLOBIN A1C - HEMOGLOBIN A1C (POC) - ALBUMIN/CREATININE RATIO, URINE - COMPLETE BLOOD COUNT - COMPREHENSIVE METABOLIC PANEL - HEMOGLOBIN A1C 2. Hyperlipidemia, unspecified hyperlipidemia type - ICD9: 272.4, ICD10: E78.5 - Control undetermined, due for labs - Continue current medications - Counseled on healthy diet and regular exercise - Discussed need for and benefit of weight loss. BMI 25.29 kg/(m^2) - COMPREHENSIVE METABOLIC PANEL - LIPID PANEL BASIC 3. Essential hypertension - ICD9: 401.9, ICD10: I10 - Controlled - Continue current medications - Recommend home blood pressure monitoring, to bring results to next visit - Encouraged sodium restriction, DASH or Mediterranean diet - Recommend regular aerobic exercise - COMPLETE BLOOD COUNT - COMPREHENSIVE METABOLIC PANEL 4. Gastroesophageal reflux disease without esophagitis - ICD9: 530.81, ICD10: K21.9 - controlled with current treatment but will trial weaning off. Take every other day for 4 weeks then if tolerated, decrease to twice a week then if tolerated, stop - Discussed lifestyle modifications including losing weight, limiting caffeine, no meals three hours before sleep, and head of bed elevation 5. Grief - ICD9: 309.0, ICD10: F43.21 Stable at this time. Patient still being active and caring for herself. Is going to start grief counseling at [facility] next month 6. Acquired hypothyroidism - ICD9: 244.9, ICD10: E03.9 Not discussed today, labs ordered to be reviewed at next appointment. - THYROID STIMULATING HORMONE 7. Follicular bronchiolitis (HCC) - ICD9: 491.9, ICD10: J42 Controlled at this time but needing own handicap placard. - PARKING FOR HANDICAPPED Prescription instructions reviewed with patient as applicable. Potential red flag symptoms discussed with the patient. Reviewed appropriate action plan to take if red flag symptoms occur. Patient agreeable to treatment plan. Griselda Lema APRN.CNP documented in this encounter [facility] 02-22-2024 Telephone encounter Note Changed to ointment. [facility] 02-22-2024 Miscellaneous Notes Changed to ointment. Patient calls to report [facility] is not able to dispense the mupirocin cream as they don't have it in stock. Patient asking provider if it is ok to switch to ointment that is in stock. Pended for review. Yoon Jones RN documented in this encounter [facility] 02-22-2024 Telephone encounter Note Patient calls to report [facility] is not able to dispense the mupirocin cream as they don't have it in stock. Patient asking provider if it is ok to switch to ointment that is in stock. Pended for review. Yoon Jones RN [facility] 02-22-2024 Nurse Note This nurse washed wound with soap and water and applied bacitracin cream to wound, covered with Band-Aid and educated pt on washing wound and covering same, she was able to understand. Catina Merlos LPN [facility] 02-22-2024 Nurse Note This nurse washed wound with soap and water and applied bacitracin cream to wound, covered with Band-Aid and educated pt on washing wound and covering same, she was able to understand. Catina Merlos LPN documented in this encounter [facility] 02-22-2024 History of Presen t illness Narrative This note was created using Hashtrack. Subjective Shannon Leija is a 83 year old female. 83 year old female with PMH HTN, hyperlipidemia, DM, thyroid, cough, and GERD present for wound. Acute onset one week ago States that she had cut her left elbow on the edge of car door Wasn't paying attention and it cut my elbow States she has been covering it with band aid Noticed that over the past day it has had increased redness Increased tenderness +drainage Denies reduced or limited ROM Denies fever or chills Denies FB Unsure of last Tetanus The history is provided by the patient. No needle control cheniller was used. Laceration The incident occurred 5 to 7 days ago. Pain location: left elbow. The laceration is 1 cm in size. The laceration mechanism was a metal edge. The pain is at a severity of 4/10. The pain is mild. The pain has been Constant since onset. She reports no foreign bodies present. Her tetanus status is unknown. 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 PAST SURGICAL HISTORY Procedure Laterality Date APPENDECTOMY 05/1980 BONE DENSITY MULTIPLE SITES 11/2000 BRONCHOSCOPY COLONOSCOPY FLX DX W/COLLJ SPEC WHEN PFRMD 11/28/2003 Colonoscopy COLONOSCOPY FLX DX W/COLLJ SPEC WHEN PFRMD 03/13/14 Colonoscopy PAST SURGICAL HISTORY OF 02/1975 right thyroid lobectomy PAST SURGICAL HISTORY OF Left thigh cellulitis, had surgery to repair, states happened aprox 36 years ago. TOTAL ABDOMINAL HYSTERECT W/WO RMVL TUBE OVARY 05/1980 Hysterectomy, BETTY, partial salpingectomy ALLERGIES Lisinopril and Sulfa (Sulfonamide Antibiotics) MEDICATIONS Telmisartan 20 mg tablet TAKE 1 TABLET BY MOUTH ONCE DAILY amLODIPine (NORVASC) 2.5 mg tablet TAKE 1 TABLET BY MOUTH ONCE DAILY glimepiride (AMARYL) 2 mg tablet Take 1 tablet by mouth two times a day with meals. levothyroxine (SYNTHROID) 125 mcg tablet Take 1 tablet daily except take 1.5 tablets one day a week simvastatin (ZOCOR) 10 mg tablet Take 1 tablet by mouth once daily. metFORMIN (GLUCOPHAGE) 1,000 mg tablet TAKE 1 TABLET BY MOUTH TWICE DAILY fluticasone furoate (ARNUITY ELLIPTA) 100 mcg/actuation inhaler Inhale 1 Puff as instructed once daily. pantoprazole DR (PROTONIX) 20 mg tablet TAKE 1 TABLET BY MOUTH DAILY BEFORE BREAKFAST ON AN EMPTY STOMACH 1/2 HOUR BEFORE A MEAL SITagliptin phosphate (JANUVIA) 100 mg tablet Take 1 tablet by mouth once daily. blood sugar diagnostic (Software Spectrum CorporationTOUCH ULTRA TEST) test strip Test 1 time daily. traZODone (DESYREL) 50 mg tablet TAKE 1 TABLET BY MOUTH DAILY AT BEDTIME (Patient taking differently: Take 50 mg by mouth daily at bedtime. As needed) fluticasone (FLONASE) 50 mcg/actuation nasal spray Use 2 Sprays in each nostril once daily. Rinse mouth after use. for nasal drainage and congestion blood sugar diagnostic (BLOOD GLUCOSE TEST) test strip Test blood sugar(s) 1 times daily. Dx: Type 2 DM - Controlled E11.9 Insulin: No fexofenadine (CECY ALLERGY) 60 mg tablet Take 1 tablet by mouth twice daily. COMPOUNDED PRESCRIPTION One touch ultra 2, test strips Test 3 times daily. Dx: E11.9 Insulin: No COMPOUNDED PRESCRIPTION Easy Touch Health Pro test strips. To be tested 2 times a day Aspirin 81 mg Tab Take 81 mg by mouth. Ivphubahukcqm-Jnxgevva-Fdujzi (CENTRUM SILVER) tab Take 1 tablet by mouth once daily. doxycycline monohydrate 100 mg tablet Take 1 tablet by mouth two times a day for 7 days. mupirocin (BACTROBAN) 2 % cream Apply 1 application to affected area three times a day for 10 days. Location: left elbow wound FAMILY HISTORY Adopted: Yes Social History Tobacco Use Smoking status: Never Smokeless tobacco: Never Tobacco comments: Parents did not smoke in childhood home. Spouse smoked in home for about 10 years. Vaping Use Vaping Use: Never used Substance Use Topics Alcohol use: Yes Comment: Rarely. Drug use: No Review of Systems Constitutional: Negative for activity change, appetite change, diaphoresis, fatigue and fever. Eyes: Negative for pain, discharge, redness and itching. Respiratory: Negative for apnea, cough, choking and chest tightness. Cardiovascular: Negative for chest pain, palpitations and leg swelling. Gastrointestinal: Negative for abdominal pain, diarrhea, nausea and vomiting. Musculoskeletal: Negative for arthralgias, back pain and gait problem. Skin: Positive for wound. Allergic/Immunologic: Negative for environmental allergies, food allergies and immunocompromised state. Neurological: Negative for dizziness, facial asymmetry, light-headedness and headaches. Hematological: Negative for adenopathy. Does not bruise/bleed easily. Psychiatric/Behavioral: Negative for agitation and behavioral problems. Objective BP 169/79 Pulse 78 Temp 36.6 C (97.8 F) Resp 20 Wt 72 kg (158 lb 11.7 oz) SpO2 98% BMI 26.41 kg/m Physical Exam Vitals and nursing note reviewed. Constitutional: General: She is not in acute distress. Appearance: Normal appearance. She is normal weight. She is not ill-appearing, toxic-appearing or diaphoretic. HENT: Head: Normocephalic and atraumatic. Right Ear: Ear canal and external ear normal. Left Ear: Ear canal and external ear normal. Nose: Nose normal. No congestion or rhinorrhea. Mouth/Throat: Mouth: Mucous membranes are moist. Pharynx: No oropharyngeal exudate or posterior oropharyngeal erythema. Eyes: General: Right eye: No discharge. Left eye: No discharge. Extraocular Movements: Extraocular movements intact. Conjunctiva/sclera: Conjunctivae normal. Pupils: Pupils are equal, round, and reactive to light. Cardiovascular: Rate and Rhythm: Normal rate and regular rhythm. Pulses: Normal pulses. Heart sounds: Normal heart sounds. No murmur heard. No friction rub. Pulmonary: Effort: Pulmonary effort is normal. No respiratory distress. Breath sounds: Normal breath sounds. No stridor. No wheezing, rhonchi or rales. Chest: Chest wall: No tenderness. Abdominal: General: Abdomen is flat. There is no distension. Palpations: Abdomen is soft. There is no mass. Tenderness: There is no abdominal tenderness. There is no right CVA tenderness, left CVA tenderness, guarding or rebound. Hernia: No hernia is present. Musculoskeletal: General: No swelling, tenderness, deformity or signs of injury. Normal range of motion. Cervical back: Normal range of motion and neck supple. No rigidity. Right lower leg: No edema. Left lower leg: No edema. Lymphadenopathy: Cervical: No cervical adenopathy. Skin: General: Skin is warm and dry. Capillary Refill: Capillary refill takes less than 2 seconds. Coloration: Skin is not jaundiced or pale. Findings: No bruising, erythema, lesion or rash. Comments: Left elbow with irregular like laceration that is 1 cm with healing noted. No open gaping No FB Scant drainage noted NO red streaking No abscess No crepitus Neurological: General: No focal deficit present. Mental Status: She is alert and oriented to person, place, and time. Cranial Nerves: No cranial nerve deficit. Sensory: No sensory deficit. Motor: No weakness. Coordination: Coordination normal. Gait: Gait normal. Psychiatric: Mood and Affect: Mood normal. Behavior: Behavior normal. Thought Content: Thought content normal. Judgment: Judgment normal. Assessment and Plan ASSESSMENT/PLAN: 1. Elbow wound, left, initial encounter - ICD9: 881.01, ICD10: S51.002A Occurrence one week ago when she cut her elbow on car door Scant drainage No red flags FROM Wound cx obtained Will treat with Doxy RX Mupirocin Discussed wound care F/U with PCP Darleen Orr APRN.[employer] REPA[employer] documented in this encounter [facility] 02-02-2024 Telephone encounter Note The following approved medication requests have been transmitted electronically. Requested Prescriptions Pending Prescriptions Disp Refills Telmisartan 20 mg tablet [Pharmacy Med Name: Telmisartan 20 MG Oral Tablet] 90 tablet 3 Sig: TAKE 1 TABLET BY MOUTH ONCE DAILY Yahir Parekh APRN.CNP [facility] Work Phone: 02-02-2024 Miscellaneous Notes The following approved medication requests have been transmitted electronically. Requested Prescriptions Pending Prescriptions Disp Refills Telmisartan 20 mg tablet [Pharmacy Med Name: Telmisartan 20 MG Oral Tablet] 90 tablet 3 Sig: TAKE 1 TABLET BY MOUTH ONCE DAILY Yahir Parekh APRN.CNP Patient has been identified by name and date of : No Patient phones for refill(s): Requested Prescriptions Pending Prescriptions Disp Refills Telmisartan 20 mg tablet [Pharmacy Med Name: Telmisartan 20 MG Oral Tablet] 90 tablet 3 Sig: TAKE 1 TABLET BY MOUTH ONCE DAILY Date of last office visit in primary care: 12/15/2023 Date of next office visit in primary care: 03/21/2024 Please advise. Thank you. Kathia Mayers LPN. documented in this encounter [facility] 02-02-2024 Telephone encounter Note Patient has been identified by name and date of : No Patient phones for refill(s): Requested Prescriptions Pending Prescriptions Disp Refills Telmisartan 20 mg tablet [Pharmacy Med Name: Telmisartan 20 MG Oral Tablet] 90 tablet 3 Sig: TAKE 1 TABLET BY MOUTH ONCE DAILY Date of last office visit in primary care: 12/15/2023 Date of next office visit in primary care: 03/21/2024 Please advise. Thank you. Kathia Mayers LPN. [facility] 01-31-2024 Telephone encounter Note Patient has been identified by name and date of : No Patient phones for refill(s): Requested Prescriptions Pending Prescriptions Disp Refills amLODIPine (NORVASC) 2.5 mg tablet [Pharmacy Med Name: amLODIPine Besylate 2.5 MG Oral Tablet] 90 tablet 3 Sig: TAKE 1 TABLET BY MOUTH ONCE DAILY glimepiride (AMARYL) 2 mg tablet Sig: Take 1 tablet by mouth two times a day with meals. Date of last office visit in primary care: 12/15/2023 Date of next office visit in primary care: 03/21/2024 Please advise. Thank you. Kathia Mayers LPN. [facility] 01-31-2024 Miscellaneous Notes Patient has been identified by name and date of : No Patient phones for refill(s): Requested Prescriptions Pending Prescriptions Disp Refills amLODIPine (NORVASC) 2.5 mg tablet [Pharmacy Med Name: amLODIPine Besylate 2.5 MG Oral Tablet] 90 tablet 3 Sig: TAKE 1 TABLET BY MOUTH ONCE DAILY glimepiride (AMARYL) 2 mg tablet Sig: Take 1 tablet by mouth two times a day with meals. Date of last office visit in primary care: 12/15/2023 Date of next office visit in primary care: 03/21/2024 Please advise. Thank you. Kathia Mayers LPN. Patient calling for refills. She is requesting a new script for her Glimeperide 2mg twice daily be sent to [facility] as pended. It was sent to incorrect pharmacy last month. Thank you. Requested Prescriptions Pending Prescriptions Disp Refills amLODIPine (NORVASC) 2.5 mg tablet [Pharmacy Med Name: amLODIPine Besylate 2.5 MG Oral Tablet] 90 tablet 3 Sig: TAKE 1 TABLET BY MOUTH ONCE DAILY glimepiride (AMARYL) 2 mg tablet [Pharmacy Med Name: Glimepiride 1 MG Oral Tablet] Sig: Take 1 tablet by mouth two times a day with meals. Date of last office visit in primary care: 12/15/2023 Date of next office visit in primary care: 03/21/2024 Ria Lopez RN documented in this encounter [facility] 01-31-2024 Telephone encounter Note Patient calling for refills. She is requesting a new script for her Glimeperide 2mg twice daily be sent to [facility] as pended. It was sent to incorrect pharmacy last month. Thank you. Requested Prescriptions Pending Prescriptions Disp Refills amLODIPine (NORVASC) 2.5 mg tablet [Pharmacy Med Name: amLODIPine Besylate 2.5 MG Oral Tablet] 90 tablet 3 Sig: TAKE 1 TABLET BY MOUTH ONCE DAILY glimepiride (AMARYL) 2 mg tablet [Pharmacy Med Name: Glimepiride 1 MG Oral Tablet] Sig: Take 1 tablet by mouth two times a day with meals. Date of last office visit in primary care: 12/15/2023 Date of next office visit in primary care: 03/21/2024 Ria Lopez RN [facility] 01-10-2024 Telephone encounter Note Spoke with Shannon, she is doing ok. Very thankful for the call. Instructed patient if anything is needed not to hesitate to let us know. [facility] 01-10-2024 Miscellaneous Notes Spoke with Shannon, she is doing ok. Very thankful for the call. Instructed patient if anything is needed not to hesitate to let us know. T/C patient , johny rang busy. Just received word that patient's spouse . Please send our condolences and ask if there is anything she needs from us. Thank you Griselda Lema APRN.CNP documented in this encounter [facility] 01-08-2024 Telephone encounter Note T/C patient , johny rang busy. [facility] 01-08-2024 Telephone encounter Note Just received word that patient's spouse . Please send our condolences and ask if there is anything she needs from us. Thank you Griselda Lema APRN.PANEL INSTRUMENT REPAIRER [facility] 12-18-2023 Miscellaneous Notes Patient calling to ask question about her dosing. Went over notes below from Griselda Lema AIRPLANE FLIGHT ATTENDANT with understanding, aware one tablet daily except one day a week one and one half tablets. Called and left a detailed voicemail notifying patient of providers message. Clinic phone number was left in case patient had any questions. Sent information to Pt through [employer] as well. Aliyah Clemens RN Thyroid level slightly abnormal which may be cause of her dizzy moments. Decrease to 1 tablet daily except 1 and 1/2 tablet one day a week versus her previous 2 tablets one day a week. Recheck in 4 weeks. Thank you Griselda Lema APRN.CNP documented in this encounter [facility] 12-15-2023 Instructions Griselda Lema APRN.OLESYA - 12/15/2023 7:47 AM EDT Increase glimepiride to 2 tablets with breakfast and 1 tablet with dinner. Call in 2 weeks if fasting blood sugar is consistently greater than 150 so we can increase it further. documented in this encounter [facility] 12-15-2023 History of Presen t illness Narrative CC: Patient presents with: Recheck: 3 month DM follow up HPI Shannon Leija is a 83 year old female who presents today for routine follow up. DIABETES MELLITUS: Ms. Leija denies excessive thirst or increased frequency of urination, chest pain or dyspnea , numbness, tingling or pain in extremities, new or unusual visual symptoms, low sugar/hypoglycemic reactions, weight loss/gain, and bowel changes/loose stools. Follows a diabetic diet most of the time. She is compliant with medication(s) and is tolerating med(s) without any side effects. She reports checking her glucose on a once a day schedule with sugars in the fasting 150s-190s range. Patient's last HgA1C was Hemoglobin A1C (%) Date Value 12/11/2023 8.3 08/05/2023 7.7 10/18/2021 6.8 07/09/2021 8.0 ) During the last 3 months diabetic medication changes were made for cost reasons, but glucose difficult to control so medications changed back. Couple times a week will get dizzy for a few seconds that resolves quickly with closing her eyes. Denies any weakness, headaches, fatigue, palpitations. Sees ophthalmology regularly and has upcoming appointment with ENT to have ears wax removed. HTN: Ms. Leija indicates that she is feeling well and denies any symptoms referable to elevated blood pressure. Specifically denies headache, chest pain, palpitations, dyspnea, and peripheral edema. Patient denies any side effects of her medication(s) and is compliant with their regimen. She does not check BP's generally. Shannon works out regularly 7 times per week with going to the gym. She watches her diet for sodium, low fat and low cholesterol most of the time. Last 3 Encounter BP Readings: Date: BP: 12/15/2023 128/70 11/28/2023 116/52 09/18/2023 116/68 Hypothyroidism: Takes medication as ordered. No abnormal change in weight or energy. 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 PAST SURGICAL HISTORY Procedure Laterality Date APPENDECTOMY 05/1980 BONE DENSITY MULTIPLE SITES 11/2000 BRONCHOSCOPY COLONOSCOPY FLX DX W/COLLJ SPEC WHEN PFRMD 11/28/2003 Colonoscopy COLONOSCOPY FLX DX W/COLLJ SPEC WHEN PFRMD 03/13/14 Colonoscopy PAST SURGICAL HISTORY OF 02/1975 right thyroid lobectomy PAST SURGICAL HISTORY OF Left thigh cellulitis, had surgery to repair, states happened aprox 36 years ago. TOTAL ABDOMINAL HYSTERECT W/WO RMVL TUBE OVARY 05/1980 Hysterectomy, BETTY, partial salpingectomy ALLERGIES Lisinopril and Sulfa (Sulfonamide Antibiotics) MEDICATIONS simvastatin (ZOCOR) 10 mg tablet Take 1 tablet by mouth once daily. metFORMIN (GLUCOPHAGE) 1,000 mg tablet TAKE 1 TABLET BY MOUTH TWICE DAILY fluticasone furoate (ARNUITY ELLIPTA) 100 mcg/actuation inhaler Inhale 1 Puff as instructed once daily. glimepiride (AMARYL) 1 mg tablet Take 2 tablets by mouth two times a day with meals. Take 2 tablets in AM and 1 in PM levothyroxine (SYNTHROID) 125 mcg tablet TAKE 1 TABLET BY MOUTH ONCE DAILY EXCEPT TAKE 2 TABLETS 1 DAY PER WEEK pantoprazole DR (PROTONIX) 20 mg tablet TAKE 1 TABLET BY MOUTH DAILY BEFORE BREAKFAST ON AN EMPTY STOMACH 1/2 HOUR BEFORE A MEAL SITagliptin phosphate (JANUVIA) 100 mg tablet Take 1 tablet by mouth once daily. Telmisartan 20 mg tablet Take 1 tablet by mouth once daily. blood sugar diagnostic (ONETOUCH ULTRA TEST) test strip Test 1 time daily. traZODone (DESYREL) 50 mg tablet TAKE 1 TABLET BY MOUTH DAILY AT BEDTIME (Patient taking differently: Take 50 mg by mouth daily at bedtime. As needed) amLODIPine (NORVASC) 2.5 mg tablet Take 1 tablet by mouth once daily. fluticasone (FLONASE) 50 mcg/actuation nasal spray Use 2 Sprays in each nostril once daily. Rinse mouth after use. for nasal drainage and congestion blood sugar diagnostic (BLOOD GLUCOSE TEST) test strip Test blood sugar(s) 1 times daily. Dx: Type 2 DM - Controlled E11.9 Insulin: No fexofenadine (CECY ALLERGY) 60 mg tablet Take 1 tablet by mouth twice daily. COMPOUNDED PRESCRIPTION One touch ultra 2, test strips Test 3 times daily. Dx: E11.9 Insulin: No COMPOUNDED PRESCRIPTION Easy Touch Health Pro test strips. To be tested 2 times a day Aspirin 81 mg Tab Take 81 mg by mouth. Ilcjgkhnzwpbk-Furleowr-Fyzlkw (CENTRUM SILVER) tab Take 1 tablet by mouth once daily. FAMILY HISTORY Adopted: Yes Social History Tobacco Use Smoking status: Never Smokeless tobacco: Never Tobacco comments: Parents did not smoke in childhood home. Spouse smoked in home for about 10 years. Vaping Use Vaping Use: Never used Substance Use Topics Alcohol use: Yes Comment: Rarely. Drug use: No PHYSICAL EXAM BP 128/70 Pulse 72 Resp 16 Wt 72.1 kg (159 lb) SpO2 98% BMI 26.46 kg/m General Appearance: well appearing, in no acute distress, alert Pysch: mood and affect broad and appropriate Skin: Skin color, texture, turgor normal for age; Eyes: PERRLA, EOM's intact, conjunctiva pink and moist, no icterus, sclera white, non-injected Ears: external ears normal to inspection and palpation, canals clear, Left tympanic membrane unable to assess due to cerumen. , Right tympanic membrane normal Neck: Thyroid normal size and symmetric without palpable nodules, No adenopathy Lymph nodes: No cervical lymphadenopathy and No supraclavicular lymphadenopathy Lungs: Lungs clear to auscultation. No wheezing, rhonchi, rales. Heart: RRR without murmur, gallop, or rubs. No ectopy Neurological: Gait normal. speech normal, mental status intact, muscle strength normal Health maintenance reviewed with patient: Behavioral Health Screening Never done Diabetic Foot Exam due on 11/01/2023 Urine Albumin:Creatinine Ratio due on 11/02/2023 DTaP,Tdap,Td Vaccine(1 - Tdap) due on 05/19/2024 RSV Vaccine(1 - 1-dose 60+ series) due on 08/17/2024 HbA1C due on 03/11/2024 Dilated Retinal Exam due on 07/14/2024 LDL Cholesterol due on 08/05/2024 Bone Density Screening Completed Influenza Vaccine Completed Advance Directive Discussion Completed Shingrix Vaccine Completed Covid-19 Vaccine Completed Pneumococcal Vaccine: 65+ Completed Colorectal Cancer Screening Discontinued DATA REVIEWED: Most recent labs ASSESSMENT/PLAN: 1. Controlled type 2 diabetes mellitus without complication, unspecified whether fdc insulin use (HCC) - ICD9: 250.00, ICD10: E11.9 (primary diagnosis) - Worsening control as a result of multiple medication changes. Back on original medications and will slightly increase glimepiride, if still greater than 150 consistently, will increase glimepiride to 2mg in am and pm - Continue current medications - Blood glucose monitoring on a once daily schedule - Counseled on healthy diet and regular exercise - Discussed need for and benefit of weight loss. BMI 26.46 kg/(m^2) - CBC + DIFF 2. Essential hypertension - ICD9: 401.9, ICD10: I10 - Controlled - Continue current medications - Recommend home blood pressure monitoring, to bring results to next visit - Encouraged sodium restriction, DASH or Mediterranean diet - Recommend regular aerobic exercise - CBC + DIFF 3. Acquired hypothyroidism - ICD9: 244.9, ICD10: E03.9 - Instructed patient on importance of taking on an empty stomach either first thing in the morning or at bedtime. - TSH BLD - CBC + DIFF 4. Dizziness - ICD9: 780.4, ICD10: R42 - possible mild vertigo versus result of cerumen buildup. - follow up with ENT as already scheduled - assessment without concern and only lasts a few seconds and not often. - follow up for further evaluation if this continues or worsens. Prescription instructions reviewed with patient as applicable. Potential red flag symptoms discussed with the patient. Reviewed appropriate action plan to take if red flag symptoms occur. Patient agreeable to treatment plan. Griselda Lema APRN.CNP documented in this encounter [facility] 12-05-2023 History of Presen t illness Narrative Radiology Service Progress Note PATIENT NAME: Shannon Leija DATE OF SERVICE: December 05, 2023 TIME: 9:31 AM PATIENT IDENTITY VERIFICATION COMPLETED USING TWO (2) IDENTIFIERS: Name and Date of confirmed by patient verbally. FALL SCREENING: Has the patient had 2 falls in the last year or 1 fall with injury or currently using an Ambulatory Assistive Device (Walker, Cane, Wheelchair, Crutches, etc.)? No PATIENT GENDER DATA: Female. status: : No status: NO. PATIENT RELEVANT IMPLANT DATA REVIEWED: Yes PATIENT PRESENTS WITH AN IMPLANTABLE OR ATTACHED COMPUTER BUILDER: No RADIOLOGY DEPARTMENT: CT; Exam(s) Completed: Chest PERIPHERAL IV DATA: Not applicable SIGNED BY: RT Paula(R) December 05, 2023 9:31 AM documented in this encounter [facility] 12-04-2023 Miscellaneous Notes Patient has been identified by name and date of : Yes, Provider Dr. Alonzo Date 12/04/23 Time 8:29 am Patient phones for refill(s): Requested Prescriptions Pending Prescriptions Disp Refills simvastatin (ZOCOR) 10 mg tablet 90 tablet 3 Sig: Take 1 tablet by mouth once daily. Date of last office visit in primary care: 09/18/2023 Date of next office visit in primary care: 12/15/2023 Thank you. Alanis Daniel LPN. documented in this encounter [facility] 11-28-2023 History of Presen t illness Narrative Images from the original note were not included. . 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 Recent formulary change from Flovent to Arnuity. Patient brought in her new inhaler for demonstration of proper use. She continues to have dry cough, can occur anytime throughout the day but seems to be worse when she has increased sinus drainage and postnasal drip. No wheezing, chest pain, or shortness of breath. She has cryobiopsy-proven follicular bronchiolitis since 2010 without underlying rheumatoid arthritis, Sjogren's syndrome or hypersensitivity pneumonitis. She feels that her cough has been worse lately over the last several months. No recent upper respiratory infections or hospitalizations. No new joint pain or dry eyes. DATA: Labs: Component Ref Range & Units 3 mo ago (08/05/23) WBC 3.70 - 11.00 k/uL 9.02 RBC 3.90 - 5.20 m/uL 4.49 Hemoglobin 11.5 - 15.5 g/dL 13.0 Hematocrit 36.0 - 46.0 % 40.2 MCV 80.0 - 100.0 fL 89.5 MCH 26.0 - 34.0 pg 29.0 MCHC 30.5 - 36.0 g/dL 32.3 RDW-CV 11.5 - 15.0 % 13.8 Platelet Count 150 - 400 k/uL 280 MPV 9.0 - 12.7 fL 10.4 Absolute nRBC <0.01 k/uL <0.01 Imaging / Diagnostic Studies: Last chest imaging 10/2022 showed no acute changes PAST MEDICAL HISTORY Diagnosis Date BENIGN HYPERTENSION 07/04/2005 Calcaneal spur of foot, left Cough 07/04/2005 chronic DIABETES MELLITUS TYPE II-UNCOMPL 07/04/2005 DIVERTICULOSIS OF COLON W/O BLEED 07/04/2005 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 ALLERGIES Allergen Reactions Lisinopril Cough Sulfa (Sulfonamide * Rash Childhood reaction. metFORMIN (GLUCOPHAGE) 1,000 mg tablet TAKE 1 TABLET BY MOUTH TWICE DAILY fluticasone furoate (ARNUITY ELLIPTA) 100 mcg/actuation inhaler Inhale 1 Puff as instructed once daily. glimepiride (AMARYL) 1 mg tablet Take 2 tablets by mouth two times a day with meals. Take 2 tablets in AM and 1 in PM levothyroxine (SYNTHROID) 125 mcg tablet TAKE 1 TABLET BY MOUTH ONCE DAILY EXCEPT TAKE 2 TABLETS 1 DAY PER WEEK pantoprazole DR (PROTONIX) 20 mg tablet TAKE 1 TABLET BY MOUTH DAILY BEFORE BREAKFAST ON AN EMPTY STOMACH 1/2 HOUR BEFORE A MEAL SITagliptin phosphate (JANUVIA) 100 mg tablet Take 1 tablet by mouth once daily. Telmisartan 20 mg tablet Take 1 tablet by mouth once daily. traZODone (DESYREL) 50 mg tablet TAKE 1 TABLET BY MOUTH DAILY AT BEDTIME (Patient taking differently: Take 50 mg by mouth daily at bedtime. As needed) amLODIPine (NORVASC) 2.5 mg tablet Take 1 tablet by mouth once daily. simvastatin (ZOCOR) 10 mg tablet Take 1 tablet by mouth once daily. fluticasone (FLONASE) 50 mcg/actuation nasal spray Use 2 Sprays in each nostril once daily. Rinse mouth after use. for nasal drainage and congestion fexofenadine (CECY ALLERGY) 60 mg tablet Take 1 tablet by mouth twice daily. Aspirin 81 mg Tab Take 81 mg by mouth. Dxmkbkiylfwph-Uwoovwli-Agmkyk (CENTRUM SILVER) tab Take 1 tablet by mouth once daily. blood sugar diagnostic ([employer] ULTRA TEST) test strip Test 1 time daily. blood sugar diagnostic (BLOOD GLUCOSE TEST) test strip Test blood sugar(s) 1 times daily. Dx: Type 2 DM - Controlled E11.9 Insulin: No COMPOUNDED PRESCRIPTION One touch ultra 2, test strips Test 3 times daily. Dx: E11.9 Insulin: No COMPOUNDED PRESCRIPTION Easy Touch Health Pro test strips. To be tested 2 times a day Social History Tobacco Use Smoking status: Never Smokeless tobacco: Never Tobacco comments: Parents did not smoke in childhood home. Spouse smoked in home for about 10 years. Vaping Use Vaping Use: Never used Substance Use Topics Alcohol use: Yes Comment: Rarely. Drug use: No FAMILY HISTORY Adopted: Yes PAST SURGICAL HISTORY Procedure Laterality Date APPENDECTOMY 05/1980 BONE DENSITY MULTIPLE SITES 11/2000 BRONCHOSCOPY COLONOSCOPY FLX DX W/COLLJ SPEC WHEN PFRMD 11/28/2003 Colonoscopy COLONOSCOPY FLX DX W/COLLJ SPEC WHEN PFRMD 03/13/14 Colonoscopy PAST SURGICAL HISTORY OF 02/1975 right thyroid lobectomy PAST SURGICAL HISTORY OF Left thigh cellulitis, had surgery to repair, states happened aprox 36 years ago. TOTAL ABDOMINAL HYSTERECT W/WO RMVL TUBE OVARY 05/1980 Hysterectomy, BETTY, partial salpingectomy PMH, Social history, family history and surgical history reviewed and updated in EMR REVIEW OF SYSTEMS: CONSTITUTIONAL: No fevers, chills, nightsweats, unintended weight loss HEENT: Positive nasal congestion/sinus symptoms, postnasal drip. EYES: No diplopia or blurry vision, dry eyes CARDIOVASCULAR: No chest pain, dyspnea, palpitations, edema. PULM: See HPI GI: No current reflux symptoms NEURO: No new balance problems, peripheral weakness/paresthesias or numbness of concern. MUSC-SKEL: No new joint pain, swelling, or erythema. INTEGUMENTARY: No new skin changes or nail changes PHYSICAL EXAMINATION: BP 116/52 Pulse 73 Resp 14 Wt 161 lb 3.2 oz (73.1kg) SpO2 96% General Appearance: Elderly female, NAD. Skin: Skin color, texture, turgor normal, no suspicious rashes or lesions. Head: Normocephalic, no masses, lesions, tenderness or abnormalities. Eyes: Sclera, conjunctiva normal. Oropharynx: No oral lesions, moist mucosa, no thrush. Neck: No JVD, no masses, no adenopathy. Lungs: Not labored, normal to percussion, no wheezes or crackles. Dry cough. Heart: Regular rate and rhythm, systolic murmur right upper sternal border. Extremities: No edema, no synovitis, no clubbing. Assessment/Plan: 1. 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 Patient was instructed on proper use of her Arnuity Ellipta -Update chest CT 2. Chronic cough -Multifactorial including follicular bronchiolitis, reflux and postnasal drip -Continue antireflux measures -Continue steroid nasal spray -See #1 3. Postnasal drip -Continue Flonase nasal spray Pamela Aranda MD [facility] documented in this encounter [facility] 10-30-2023 Miscellaneous Notes Patient has been identified by name and date of : No Patient phones for refill(s): Requested Prescriptions Pending Prescriptions Disp Refills metFORMIN (GLUCOPHAGE) 1,000 mg tablet [Pharmacy Med Name: metFORMIN HCl 1000 MG Oral Tablet] 180 tablet 3 Sig: TAKE 1 TABLET BY MOUTH TWICE DAILY Date of last office visit in primary care: 09/18/2023 Date of next office visit in primary care: 12/15/2023 Please advise. Thank you. Kathia Mayers LPN. documented in this encounter [facility] 08-14-2023 Miscellaneous Notes Patient has been identified by name and date of : No Patient phones for refill(s): Requested Prescriptions Pending Prescriptions Disp Refills levothyroxine (SYNTHROID) 125 mcg tablet [Pharmacy Med Name: Levothyroxine Sodium 125 MCG Oral Tablet] 104 tablet 3 Sig: TAKE 1 TABLET BY MOUTH ONCE DAILY EXCEPT TAKE 2 TABLETS 1 DAY PER WEEK pantoprazole DR (PROTONIX) 20 mg tablet [Pharmacy Med Name: Pantoprazole Sodium 20 MG Oral Tablet Delayed Release] 90 tablet 3 Sig: TAKE 1 TABLET BY MOUTH DAILY BEFORE BREAKFAST ON AN EMPTY STOMACH 1/2 HOUR BEFORE A MEAL Date of last office visit in primary care: 05/19/2023 Date of next office visit in primary care: 08/17/2023 Last 2 Encounter Wt Readings: Date: Wt: 05/29/2023 73.5 kg (162 lb) 05/19/2023 71.7 kg (158 lb) Previous labs/tests for medication: Thyroid: TSH Date Value 08/05/2023 0.360 mIU/L 10/18/2021 4.940 uU/mL Please advise. Thank you. Kathia Mayers. documented in this encounter [facility] 08-01-2023 Miscellaneous Notes Pt will be due for a mammogram in August, pt calling for order to be placed. Order pending review. Please call pt to schedule when order is placed. 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 She reports wanting to wait a few days before beginning them. She has increased her inhaler to BID as prescription states and her tessalon pearls to TID as prescribed. She would like to see if this helps as she does not like to take the steroids unless necessary. Christy Pratt MA documented in this encounter [facility] 07-06-2023 Miscellaneous Notes Pt calling back. She said that she is agreeable to take a short course of steroids as long as that is safe since she is diabetic. IAN Galvin MA Images from the original note were not included. Pamela Aranda MD She could take a course of oral steroids if she is willing Left message for patient to call back. If she is willing to start steroids, please confirm pharmacy. Alanis Galvin MA Patient requesting advice. She reports a dry cough ongoing 2 weeks. She is taking prescribed medications with no results. I reviewed medication instructions with patient and found she was able to increase her inhaler to BID and the tessalon pearls to TID. Patient will adjust these dosages while waiting for advice from this office. She is not currently taking mucinex. She reports coughing spells that interrupt her activity and sleep. She states she has no other illness symptoms at this time. Christy Pratt MA documented in this encounter [facility] 05-29-2023 History of Presen t illness Narrative Images from the original note were not included. . [facility] Note Patient name: Shannon Leija PCP: Darin Alonzo MD CC: Routine follow-up HPI: Shannon Leija 82 year old female never smoker with PMH significant for HTN, DM2, rhinitis, hypothyroidism, GERD, HLD, follicular bronchiolitis/BALT previously treated with steroids and maintained on ICS. Had worsening of her baseline cough after she was started on Lisinopril due to hypertensive urgency. Had persistent cough after discontinuation of LUISANA inhibitor and treated with course of oral steroids. Chest imaging normal. Patient very reluctant to use oral steroids due to poor control of her diabetes. At [facility], felt persistent cough more attributable to post nasal drip/UACS. Started nasal steroids. Today she state she is better. No severe or persistent cough. No SOB or wheezing. No chest pain. No issues with the nasal steroids, irritation or nose bleeds. Only using Flovent once daily. DATA: PFT 11/2022: Spirometry shows mild restriction Imaging / Diagnostic Studies: DATE OF EXAM: Nov 07 2022 10:11AM WOX [id number] - XR CHEST 2V FRONTAL/LAT / PROCEDURE REASON: Follicular bronchiolitis (HCC) EXAM DATE/TIME: 11/07/2022 10:11 AM COMPARISON: Chest x-ray dated June 15, 2022 RESULT: Lines, tubes, and devices: None. Lungs and pleura: No consolidation. No lung mass. No pleural effusion. No pneumothorax. Cardiomediastinal silhouette: Normal cardiomediastinal silhouette. Bones and soft tissues: Osseous demineralization and degenerative changes. IMPRESSION: No acute radiographic abnormality. 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 ALLERGIES Allergen Reactions Lisinopril Cough Sulfa (Sulfonamide * Rash Childhood reaction. SITagliptin phosphate (JANUVIA) 100 mg tablet Take 1 tablet by mouth once daily. Telmisartan 20 mg tablet Take 1 tablet by mouth once daily. blood sugar diagnostic (Eye-QUCH ULTRA TEST) test strip Test 1 time daily. traZODone (DESYREL) 50 mg tablet TAKE 1 TABLET BY MOUTH DAILY AT BEDTIME (Patient taking differently: Take 50 mg by mouth daily at bedtime. As needed) amLODIPine (NORVASC) 2.5 mg tablet Take 1 tablet by mouth once daily. glimepiride (AMARYL) 1 mg tablet Take 1 tablet by mouth twice daily with meals. fluticasone (FLOVENT HFA) 110 mcg/actuation inhaler Inhale 1 Puff as instructed twice daily. VIA SPACER THEN RINSE AND GARGLE MOUTH WITH WATER. Using once in the morning and increases to BID as needed metFORMIN (GLUCOPHAGE) 1,000 mg tablet Take 1 tablet by mouth twice daily. levothyroxine (SYNTHROID) 125 mcg tablet Take 1 tablet by mouth once daily. Except take 2 tablets one day a week simvastatin (ZOCOR) 10 mg tablet Take 1 tablet by mouth once daily. pantoprazole DR (PROTONIX) 20 mg tablet TAKE 1 TABLET BY MOUTH DAILY BEFORE BREAKFAST ON AN EMPTY STOMACH 1/2 HOUR BEFORE A MEAL fluticasone (FLONASE) 50 mcg/actuation nasal spray Use 2 Sprays in each nostril once daily. Rinse mouth after use. for nasal drainage and congestion blood sugar diagnostic (BLOOD GLUCOSE TEST) test strip Test blood sugar(s) 1 times daily. Dx: Type 2 DM - Controlled E11.9 Insulin: No fexofenadine (CECY ALLERGY) 60 mg tablet Take 1 tablet by mouth twice daily. COMPOUNDED PRESCRIPTION One touch ultra 2, test strips Test 3 times daily. Dx: E11.9 Insulin: No COMPOUNDED PRESCRIPTION Easy Touch Health Pro test strips. To be tested 2 times a day Aspirin 81 mg Tab Take 81 mg by mouth. Umktkouhcnntd-Kiovrazl-Cavdtg (CENTRUM SILVER) tab Take 1 tablet by mouth once daily. naproxen (NAPROSYN) 500 mg tablet Take 1 tablet by mouth twice daily as needed (for pain/inflammation). Take with food. (Patient not taking: Reported on 05/29/2023) benzonatate (TESSALON PERLES) 100 mg capsule Take 1 capsule by mouth three times daily as needed for cough. (Patient not taking: Reported on 05/29/2023) guaiFENesin (MUCINEX) 600 mg 12 hr tablet Take 1 tablet by mouth twice daily. (Patient not taking: Reported on 05/29/2023) Social History Tobacco Use Smoking status: Never Smokeless tobacco: Never Tobacco comments: Parents did not smoke in childhood home. Spouse smoked in home for about 10 years. Vaping Use Vaping Use: Never used Substance Use Topics Alcohol use: Yes Comment: Rarely. Drug use: No FAMILY HISTORY Adopted: Yes PMH, Social history, family history and surgical history reviewed and updated in EMR REVIEW OF SYSTEMS: CONSTITUTIONAL: No fevers, chills, nightsweats, unintended weight loss HEENT: Improved nasal congestion/sinus symptoms CARDIOVASCULAR: No chest pain, dyspnea, palpitations, orthopnea, PND, edema. PULM: See HPI GI: No dysphagia/odynophagia, problematic reflux. INTEGUMENTARY: No new skin changes or rashes PHYSICAL EXAMINATION: BP 132/60 Pulse 76 Resp 21 Ht 5' 5 (1.65m) Wt 162 lb (73.5kg) SpO2 97% BMI 26.96 kg/(m^2). General Appearance: Elderly female, NAD. Skin: Skin color, texture, turgor normal, no suspicious rashes or lesions. Head: Normocephalic, no masses, lesions, tenderness or abnormalities. Eyes: Sclera, conjunctiva normal. Oropharynx: Poor dentition, no oral lesions, no posterior pharyngeal cobblestoning. Neck: No JVD, no masses, no adenopathy Chest wall: Mild kyphosis. Lungs: Not labored, normal to percussion, no wheezes or crackles. Heart: Regular rate and rhythm, systolic murmur, right upper sternal border Extremities: No edema or clubbing Assessment/Plan: Follicular bronchiolitis -Has chronic cough form her follicular bronchiolitis but her most recent issues with worsening cough due to UACS. This has improved with the addition of nasal steroids -Continue ICS UACS -Continue Flonase RTC 6 months or sooner with problems Pamela Aranda MD [facility] documented in this encounter [facility] 05-19-2023 Instructions Griselda Lema APRN.CNP - 05/19/2023 9:11 AM EDT To wean off pantoprazole: Take 1 tablet every other day for a few weeks, then every 3rd for a few weeks, then stop. If you start having heartburn, abdominal pain, nausea, bloating or difficulty swallowing restart at previous step. documented in this encounter [facility] 05-19-2023 History of Presen t illness Narrative CC: Patient presents with: Recheck: 3 month DM follow up HPI Shannon Leija is a 82 year old female who presents today for diabetic follow up. DIABETES MELLITUS: Ms. Leija denies excessive thirst or increased frequency of urination, chest pain or dyspnea , numbness, tingling or pain in extremities, new or unusual visual symptoms, low sugar/hypoglycemic reactions, weight loss/gain, lightheadedness/dizziness, and bowel changes/loose stools. Follows a diabetic diet most of the time. She is compliant with medication(s) and is tolerating med(s) without any side effects. Patient's last HgA1C was Hemoglobin A1C (%) Date Value 05/10/2023 7.6 01/23/2023 7.6 10/18/2021 6.8 07/09/2021 8.0 ) Last Ophthalmology exam was within the past 12 months Went to diabetic clinic at [facility] 6 weeks ago and has had improvement in blood sugars and has lost 5 pounds through diet and exercise. Prior to this FBS was 160s but over the last few weeks 140s-150s. Just noticed her januvia is $460 every 3 months. Has been on this for years but never realized the cost. Just got a 3 month refill on januvia so does not want to change at this time. 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 PAST SURGICAL HISTORY Procedure Laterality Date APPENDECTOMY 05/1980 BONE DENSITY MULTIPLE SITES 11/2000 BRONCHOSCOPY COLONOSCOPY FLX DX W/COLLJ SPEC WHEN PFRMD 11/28/2003 Colonoscopy COLONOSCOPY FLX DX W/COLLJ SPEC WHEN PFRMD 03/13/14 Colonoscopy PAST SURGICAL HISTORY OF 02/1975 right thyroid lobectomy PAST SURGICAL HISTORY OF Left thigh cellulitis, had surgery to repair, states happened aprox 36 years ago. TOTAL ABDOMINAL HYSTERECT W/WO RMVL TUBE OVARY 05/1980 Hysterectomy, BETTY, partial salpingectomy ALLERGIES Lisinopril and Sulfa (Sulfonamide Antibiotics) MEDICATIONS SITagliptin phosphate (JANUVIA) 100 mg tablet Take 1 tablet by mouth once daily. Telmisartan 20 mg tablet Take 1 tablet by mouth once daily. naproxen (NAPROSYN) 500 mg tablet Take 1 tablet by mouth twice daily as needed (for pain/inflammation). Take with food. blood sugar diagnostic (ONETOUCH ULTRA TEST) test strip Test 1 time daily. traZODone (DESYREL) 50 mg tablet TAKE 1 TABLET BY MOUTH DAILY AT BEDTIME amLODIPine (NORVASC) 2.5 mg tablet Take 1 tablet by mouth once daily. glimepiride (AMARYL) 1 mg tablet Take 1 tablet by mouth twice daily with meals. fluticasone (FLOVENT HFA) 110 mcg/actuation inhaler Inhale 1 Puff as instructed twice daily. VIA SPACER THEN RINSE AND GARGLE MOUTH WITH WATER. Using once in the morning and increases to BID as needed benzonatate (TESSALON PERLES) 100 mg capsule Take 1 capsule by mouth three times daily as needed for cough. metFORMIN (GLUCOPHAGE) 1,000 mg tablet Take 1 tablet by mouth twice daily. levothyroxine (SYNTHROID) 125 mcg tablet Take 1 tablet by mouth once daily. Except take 2 tablets one day a week simvastatin (ZOCOR) 10 mg tablet Take 1 tablet by mouth once daily. pantoprazole DR (PROTONIX) 20 mg tablet TAKE 1 TABLET BY MOUTH DAILY BEFORE BREAKFAST ON AN EMPTY STOMACH 1/2 HOUR BEFORE A MEAL guaiFENesin (MUCINEX) 600 mg 12 hr tablet Take 1 tablet by mouth twice daily. fluticasone (FLONASE) 50 mcg/actuation nasal spray Use 2 Sprays in each nostril once daily. Rinse mouth after use. for nasal drainage and congestion blood sugar diagnostic (BLOOD GLUCOSE TEST) test strip Test blood sugar(s) 1 times daily. Dx: Type 2 DM - Controlled E11.9 Insulin: No fexofenadine (CECY ALLERGY) 60 mg tablet Take 1 tablet by mouth twice daily. COMPOUNDED PRESCRIPTION One touch ultra 2, test strips Test 3 times daily. Dx: E11.9 Insulin: No COMPOUNDED PRESCRIPTION Easy Touch Health Pro test strips. To be tested 2 times a day Aspirin 81 mg Tab Take 81 mg by mouth. Qhmbigyhfggru-Ipkucwrl-Gfttqc (CENTRUM SILVER) tab Take 1 tablet by mouth once daily. FAMILY HISTORY Adopted: Yes Problem Relation Age of Onset other (unknow) Brother Patient adopted, unsure of family hx. Social History Tobacco Use Smoking status: Never Smokeless tobacco: Never Tobacco comments: Parents did not smoke in childhood home. Spouse smoked in home for about 10 years. Vaping Use Vaping Use: Never used Substance Use Topics Alcohol use: Yes Comment: Rarely. Drug use: No PHYSICAL EXAM BP 128/68 Pulse 78 Resp 16 Wt 71.7 kg (158 lb) SpO2 98% BMI 27.12 kg/m General Appearance: well appearing, in no acute distress, alert Eyes: conjunctiva pink and moist, no icterus, sclera white, non-injected Lungs: Lungs clear to auscultation. No wheezing, rhonchi, rales. Heart: RRR without murmur, gallop, or rubs. No ectopy Health maintenance reviewed with patient: DTAP,TDAP,TD(1 - Tdap) due on 03/23/2012 ADVANCE DIRECTIVE DISCUSSION Never done BP CONTROLLED (<130/80) due on 10/22/2022 COVID-19 VACCINE(6 - Moderna series) due on 11/04/2022 INFLUENZA(1) due on 05/12/2023 DILATED RETINAL EXAM due on 09/27/2023 DIABETIC FOOT EXAM due on 11/01/2023 URINE ALBUMIN:CREATININE RATIO due on 11/02/2023 HBA1C due on 11/09/2023 LDL CHOLESTEROL due on 01/24/2024 ANNUAL PCP TEAM CHRONIC DISEASE VISIT due on 04/10/2024 BONE DENSITY Completed DEPRESSION ASSESSMENT Completed SHINGRIX VACCINE Completed PNEUMOCOCCAL: 65+ Completed COLORECTAL CANCER SCREENING Discontinued DATA REVIEWED: Most recent labs ASSESSMENT/PLAN: 1. Controlled type 2 diabetes mellitus without complication, unspecified whether fdc insulin use (HCC) - ICD9: 250.00, ICD10: E11.9 (primary diagnosis) - Improving control - Continue current medications - need to follow up in 3 months and discuss med changes since januvia is so expensive - Blood glucose monitoring on a once daily schedule - Counseled on healthy diet and regular exercise - Discussed need for and benefit of weight loss. BMI 27.12 kg/(m^2) - HGB A1C - CBC - COMP METABOLIC PANEL 2. Essential hypertension - ICD9: 401.9, ICD10: I10 - not reviewed today, labs ordered to review at next appointment. - CBC - COMP METABOLIC PANEL 3. Hyperlipidemia, unspecified hyperlipidemia type - ICD9: 272.4, ICD10: E78.5 - not reviewed today, labs ordered to review at next appointment. - LIPID PANEL BASIC - COMP METABOLIC PANEL 4. Acquired hypothyroidism - ICD9: 244.9, ICD10: E03.9 - not reviewed today, labs ordered to review at next appointment. - TSH BLD Prescription instructions reviewed with patient as applicable. Potential red flag symptoms discussed with the patient. Reviewed appropriate action plan to take if red flag symptoms occur. Patient agreeable to treatment plan. Griselda Lema APRN.CNP documented in this encounter [facility] 04-18-2023 Miscellaneous Notes Patient has been identified by name and date of : Yes, Patient phones for refill(s): Requested Prescriptions Pending Prescriptions Disp Refills SITagliptin phosphate (JANUVIA) 100 mg tablet 90 tablet 3 Sig: Take 1 tablet by mouth once daily. Date of last office visit in primary care: 04/11/2023 3 month follow-up: 05/16/2023 Last 2 Encounter Wt Readings: Date: Wt: 04/10/2023 73.5 kg (162 lb) 03/01/2023 73 kg (161 lb) Previous labs/tests for medication: Diabetes: Hemoglobin A1C (%) Date Value 01/23/2023 7.6 10/24/2022 7.4 10/18/2021 6.8 07/09/2021 8.0 Please advise. Thank you. Lo Miranda LPN documented in this encounter [facility] 04-10-2023 History of Presen t illness Narrative Radiology Service Progress Note PATIENT NAME: Shannon Leija DATE OF SERVICE: April 10, 2023 TIME: 10:47 AM PATIENT IDENTITY VERIFICATION COMPLETED USING TWO (2) IDENTIFIERS: Name and Date of confirmed by patient verbally. FALL SCREENING: Has the patient had 2 falls in the last year or 1 fall with injury or currently using an Ambulatory Assistive Device (Walker, Cane, Wheelchair, Crutches, etc.)? No PATIENT GENDER DATA: Female. status: : No status: NO. PATIENT RELEVANT IMPLANT DATA REVIEWED: Yes RADIOLOGY DEPARTMENT: General X-ray: Exam(s) Completed: Pelvis X-Ray: Pelvis with Hip Right Lower Extremity X-Ray(s): Ankle, Right PERIPHERAL IV DATA: Not applicable SIGNED BY: RT Rogerio(R) April 10, 2023 10:47 AM documented in this encounter [facility] 04-10-2023 History of Presen t illness Narrative CC Patient presents with: Recheck: BP follow up HPI Shannon Leija is a 82 year old female who presents to the office for blood pressure. Her visit today is for follow-up. Patient was last seen for this approximately 1 month ago. Medication changes: Yes PCP added telmisartan Taking all medications as prescribed: Yes Side effects: No Home BP's: Yes 110s-120s/60s-70s. Denies: headache, chest pain, palpitations, dyspnea, and peripheral edema. Last 4 Encounter BP Readings: Date: BP: 04/10/2023 142/70 03/01/2023 136/62 01/30/2023 130/58 11/25/2022 132/68 Last 3 Encounter Wt Readings: Date: Wt: 04/10/2023 73.5 kg (162 lb) 03/01/2023 73 kg (161 lb) 01/30/2023 72.1 kg (159 lb) Exercise: works out regularly 6 times per week with walking. Diet: Watch for salt, fat, cholesterol: Yes . Caffeine: 1-2 cups a day Water intake: large amount throughout day Alcohol intake: none . Smoking: No Frequent NSAID use: No Decongestants: No Thyroid disorders? No Has been having pain to her posterior right thigh for the last 4-5 months. Occurs every day and varies in severity. Does effect her walking and notices it more when she is driving and using her right leg. Also notices some times her right ankle will feel like it is going to give out, but has not fallen. Denies any known injury, recent illness, recent surgery, recent travel, history of blood clots, edema, redness, fever, weakness, or numbness. REVIEW OF SYSTEMS General: no fevers, no chills, no night sweats, no recurrent infections, no change in appetite, no change in energy, and no significant changes in weight Respiratory: no cough, no wheezing, no shortness of breath, no hemoptysis Cardiovascular: no chest pain, no chest pressure, no palpitations, and no swelling Neurologic: No headache, weakness, numbness, tingling, dizziness, memory loss, syncope. 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 PAST SURGICAL HISTORY Procedure Laterality Date APPENDECTOMY 05/1980 BONE DENSITY MULTIPLE SITES 11/2000 BRONCHOSCOPY COLONOSCOPY FLX DX W/COLLJ SPEC WHEN PFRMD 11/28/2003 Colonoscopy COLONOSCOPY FLX DX W/COLLJ SPEC WHEN PFRMD 03/13/14 Colonoscopy PAST SURGICAL HISTORY OF 02/1975 right thyroid lobectomy PAST SURGICAL HISTORY OF Left thigh cellulitis, had surgery to repair, states happened aprox 36 years ago. TOTAL ABDOMINAL HYSTERECT W/WO RMVL TUBE OVARY 05/1980 Hysterectomy, BETTY, partial salpingectomy ALLERGIES Lisinopril and Sulfa (Sulfonamide Antibiotics) MEDICATIONS blood sugar diagnostic (Software Spectrum CorporationTOUCH ULTRA TEST) test strip Test 1 time daily. Telmisartan 20 mg tablet Take 1 tablet by mouth once daily. traZODone (DESYREL) 50 mg tablet TAKE 1 TABLET BY MOUTH DAILY AT BEDTIME amLODIPine (NORVASC) 2.5 mg tablet Take 1 tablet by mouth once daily. glimepiride (AMARYL) 1 mg tablet Take 1 tablet by mouth twice daily with meals. fluticasone (FLOVENT HFA) 110 mcg/actuation inhaler Inhale 1 Puff as instructed twice daily. VIA SPACER THEN RINSE AND GARGLE MOUTH WITH WATER. Using once in the morning and increases to BID as needed benzonatate (TESSALON PERLES) 100 mg capsule Take 1 capsule by mouth three times daily as needed for cough. metFORMIN (GLUCOPHAGE) 1,000 mg tablet Take 1 tablet by mouth twice daily. levothyroxine (SYNTHROID) 125 mcg tablet Take 1 tablet by mouth once daily. Except take 2 tablets one day a week simvastatin (ZOCOR) 10 mg tablet Take 1 tablet by mouth once daily. pantoprazole DR (PROTONIX) 20 mg tablet TAKE 1 TABLET BY MOUTH DAILY BEFORE BREAKFAST ON AN EMPTY STOMACH 1/2 HOUR BEFORE A MEAL SITagliptin (JANUVIA) 100 mg tablet Take 1 tablet by mouth once daily. guaiFENesin (MUCINEX) 600 mg 12 hr tablet Take 1 tablet by mouth twice daily. fluticasone (FLONASE) 50 mcg/actuation nasal spray Use 2 Sprays in each nostril once daily. Rinse mouth after use. for nasal drainage and congestion blood sugar diagnostic (BLOOD GLUCOSE TEST) test strip Test blood sugar(s) 1 times daily. Dx: Type 2 DM - Controlled E11.9 Insulin: No fexofenadine (CECY ALLERGY) 60 mg tablet Take 1 tablet by mouth twice daily. COMPOUNDED PRESCRIPTION One touch ultra 2, test strips Test 3 times daily. Dx: E11.9 Insulin: No COMPOUNDED PRESCRIPTION Easy Touch Health Pro test strips. To be tested 2 times a day Aspirin 81 mg Tab Take 81 mg by mouth. Ugvjrqmcikydd-Qosagvng-Jspxoq (CENTRUM SILVER) tab Take 1 tablet by mouth once daily. FAMILY HISTORY Adopted: Yes Problem Relation Age of Onset other (unknow) Brother Patient adopted, unsure of family hx. Social History Tobacco Use Smoking status: Never Smokeless tobacco: Never Tobacco comments: Parents did not smoke in childhood home. Spouse smoked in home for about 10 years. Vaping Use Vaping Use: Never used Substance Use Topics Alcohol use: Yes Comment: Rarely. Drug use: No PHYSICAL EXAM BP 142/70 Pulse 76 Temp 36.7 C (98 F) (Temporal) Resp 16 Wt 73.5 kg (162 lb) SpO2 100% BMI 27.81 kg/m General Appearance: well appearing, in no acute distress, alert Skin: Skin color, texture, turgor normal for age; Eyes: conjunctiva pink and moist, no icterus, sclera white, non-injected Lungs: Lungs clear to auscultation. No wheezing, rhonchi, rales. Heart: RRR without murmur, gallop, or rubs. No ectopy Extremities: No deformities, edema, skin discoloration, clubbing or cyanosis. Good capillary refill. Bilateral ankles bilateral knees and left hip No joint swelling, deformity, or tenderness Right hip without swelling or deformity but pain noted on palpation of greater trochanter and surrounding area. Neurological: Gait normal. Reflexes normal and symmetric. Sensation grossly intact., Negative findings: muscle tone normal, muscle strength normal DATA REVIEWED: No new labs ASSESSMENT/PLAN: 1. Essential hypertension - ICD9: 401.9, ICD10: I10 (primary diagnosis) - Home blood pressure readings controlled - Continue current medications - Recommend home blood pressure monitoring, to bring results to next visit - Encouraged sodium restriction, DASH or Mediterranean diet - Recommend regular aerobic exercise 2. Tenderness of right hip - ICD9: 719.45, ICD10: M25.551 - no deformity noted and no injury. With the tenderness will go ahead and xray. - naproxen as ordered - XR HIP GENERAL 3V PELV/AP/LAT RIGHT - CONSULT TO ORTHOPAEDICS 3. Right thigh pain - ICD9: 729.5, ICD10: M79.651 - possibly muscle inflammation - XR HIP GENERAL 3V PELV/AP/LAT RIGHT - CONSULT TO ORTHOPAEDICS 4. Right ankle instability - ICD9: 718.87, ICD10: M25.371 - assessment normal. - XR ANKLE GENERAL 3V AP/LAT/OBL RIGHT - CONSULT TO ORTHOPAEDICS Prescription instructions reviewed with patient as applicable. Potential red flag symptoms discussed with the patient. Reviewed appropriate action plan to take if red flag symptoms occur. Patient agreeable to treatment plan Griselda Lema APRN.CNP documented in this encounter [facility] 03-01-2023 History of Presen t illness Narrative Reason for Visit Patient presents with: Same Day Appointment: elevated blood pressure Shannon Leija is a 82 year old female who presents here today for Above Complaints.. Health Maintenance DTAP,TDAP,TD(1 - Tdap) ADVANCE DIRECTIVE DISCUSSION BP CONTROLLED (<130/80) HPI Patient went for life line screening last Monday and there her bp was very high, 191/77 and they got concerned At that particular times she did not have any symptoms. She is on norvasc and has been having some episodes of dizziness on and off. They are random but happen mostly in the morning. Her dizziness is noticed when she is getting up from a sitting position. She was on lisinopril in the past but that gave her a terrible cough. Was advised her that telmisartan could to that but she needs to report to us imnmediately Other options would be a b yamileth and spironolactone if she develops a cough with the telmisartan. No problem-specific Assessment & Plan notes found for this encounter. 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 PAST SURGICAL HISTORY Procedure Laterality Date APPENDECTOMY 05/1980 BONE DENSITY MULTIPLE SITES 11/2000 BRONCHOSCOPY COLONOSCOPY FLX DX W/COLLJ SPEC WHEN PFRMD 11/28/2003 Colonoscopy COLONOSCOPY FLX DX W/COLLJ SPEC WHEN PFRMD 03/13/14 Colonoscopy PAST SURGICAL HISTORY OF 02/1975 right thyroid lobectomy PAST SURGICAL HISTORY OF Left thigh cellulitis, had surgery to repair, states happened aprox 36 years ago. TOTAL ABDOMINAL HYSTERECT W/WO RMVL TUBE OVARY 05/1980 Hysterectomy, BETTY, partial salpingectomy FAMILY HISTORY Adopted: Yes Problem Relation Age of Onset other (unknow) Brother Patient adopted, unsure of family hx. Social History Tobacco Use Smoking status: Never Smokeless tobacco: Never Tobacco comments: Parents did not smoke in childhood home. Spouse smoked in home for about 10 years. Vaping Use Vaping Use: Never used Substance Use Topics Alcohol use: Yes Comment: Rarely. Drug use: No Past medical history, appointments, medications, allergies reviewed. Pertinent Lab/Diagnostic Studies are reviewed and discussed today Current Outpatient Medications: traZODone (DESYREL) 50 mg tablet amLODIPine (NORVASC) 2.5 mg tablet glimepiride (AMARYL) 1 mg tablet fluticasone (FLOVENT HFA) 110 mcg/actuation inhaler benzonatate (TESSALON PERLES) 100 mg capsule metFORMIN (GLUCOPHAGE) 1,000 mg tablet levothyroxine (SYNTHROID) 125 mcg tablet simvastatin (ZOCOR) [address] (PROTONIX) 20 mg tablet SITagliptin (JANUVIA) 100 mg tablet guaiFENesin (MUCINEX) 600 mg 12 hr tablet fluticasone (FLONASE) 50 mcg/actuation nasal spray blood sugar diagnostic (BLOOD GLUCOSE TEST) test strip fexofenadine (CECY ALLERGY) 60 mg tablet COMPOUNDED PRESCRIPTION COMPOUNDED PRESCRIPTION Aspirin 81 mg Tab Kurhlbjgxahtx-Csjcqqzu-Ditkvn (CENTRUM SILVER) tab Review of Systems CONSTITUTIONAL: No fevers, chills night sweats, unintended weight loss CARDIOVASCULAR: No chest pain, dyspnea, palpitations, orthopnea, PND, ankle edema. PULM: No dyspnea, unexplained cough. GI: No dysphagia/odynophagia, problematic reflux, constipation, diarrhea, changes in stool habits, hematochezia, melena. : No new urinary complaints, including dysuria, gross hematuria or pyuria. NEURO: No new balance problems, peripheral weakness/paresthesias or numbness of concern. Physical Exam BP 136/62 (BP Site: Right Arm, BP Position: Sitting, BP Cuff Size: Large Adult) Pulse 84 Temp 36.1 C (97 F) Resp 12 Ht 162.6 cm (5' 4) Wt 73 kg (161 lb) SpO2 97% BMI 27.64 kg/m General appearance: Well appearing, alert, in no acute distress, well nourished. Skin: Skin color, texture, turgor normal, no suspicious rashes or lesions Head: Normocephalic, no masses, lesions, tenderness or abnormalities Eyes: Anicteric sclera. Pupils are equally round and reactive to light. Extraocular movements are intact. Lungs: Lungs clear to auscultation. No wheezing, rhonchi, rales Heart: RRR without murmur, gallop, or rubs. Extremities: No deformities, edema, skin discoloration, clubbing or cyanosis. Good capillary refill. ASSESSMENT/PLAN: 1. Essential hypertension - ICD9: 401.9, ICD10: I10 (primary diagnosis) Not controlled addition of telmisartan; Low thresh hold if patient has a cough or other side effects to try spironolactone or B nelly Went over the side effect profile for the drug with the patient, mentioned every one of it , discussed appropriate concerns , alternatives and benefits of the drug, 2. Uncontrolled hypertension - ICD9: 401.9, ICD10: I10 - Controlled - Recommend home blood pressure monitoring, to bring results to next visit - Encouraged sodium restriction, DASH or Mediterranean diet - Recommend regular aerobic exercise Darin Alonzo MD documented in this encounter [facility] 02-28-2023 Miscellaneous Notes Pt notified not certain why she requested again. Pt made a comment not sure how long she would be taking this. Will discuss at next apt. Alanis Daniel LPN This was just filled 4 days ago. Does patient need this sent to a different pharmacy? Thank you Griselda Lema [email or web address] Patient has been identified by name and date of : No Patient phones for refill(s): Requested Prescriptions Pending Prescriptions Disp Refills amLODIPine (NORVASC) 2.5 mg tablet [Pharmacy Med Name: amLODIPine Besylate 2.5 MG Oral Tablet] 90 tablet 3 Sig: TAKE 1 TABLET BY MOUTH ONCE DAILY Date of last office visit in primary care: 01/30/23 Last 2 Encounter Wt Readings: Date: Wt: 01/30/2023 72.1 kg (159 lb) 11/25/2022 73.5 kg (162 lb) Previous labs/tests for medication: Blood Pressure: BUN (mg/dL) Date Value 01/23/2023 22 07/09/2021 19 Sodium (mmol/L) Date Value 01/23/2023 137 07/09/2021 137 Last 1 Encounter BP Readings: Date: BP: 01/30/2023 130/58 Please advise. Thank you. Kathia Swanson LPN documented in this encounter [facility] 02-28-2023 Miscellaneous Notes appt made for tomorrow 03/01/23 with . Kathia Swanson LPN Patient needs appointment. Arturo Winter PA-C Patient calling due to elevated blood pressure readings. Note high readings last week and continue to be elevated. 191/77 149/79 128/72 151/71 135/71 Has been getting dizzy spells and headache off and on. Denies chest pain. Did encourage patient to check blood pressure only once daily. This is to help avoid anxiety due to it being elevated, making blood pressure worse . documented in this encounter [facility] 02-27-2023 Miscellaneous Notes Patient has been identified by name and date of : No Patient phones for refill(s): Requested Prescriptions Pending Prescriptions Disp Refills traZODone (DESYREL) 50 mg tablet [Pharmacy Med Name: traZODone HCl 50 MG Oral Tablet] 90 tablet 3 Sig: TAKE 1 TABLET BY MOUTH DAILY AT BEDTIME Date of last office visit in primary care: 01/30/23 Last 2 Encounter Wt Readings: Date: Wt: 01/30/2023 72.1 kg (159 lb) 11/25/2022 73.5 kg (162 lb) Previous labs/tests for medication: Not applicable Please advise. Thank you. Kathia Swanson LPN documented in this encounter [facility] 02-23-2023 Miscellaneous Notes Patient calls back to report that she contacted [facility] and they didn't receive glimepiride order. Re-pended. Yoon Jones RN Patient has been identified by name and date of : Patient phones for refill(s): Requested Prescriptions Pending Prescriptions Disp Refills amLODIPine (NORVASC) 2.5 mg tablet 90 tablet 3 Sig: Take 1 tablet by mouth once daily. Date of last office visit in primary care: 01/30/2023, has appt 05/04/2023 Last 2 Encounter Wt Readings: Date: Wt: 01/30/2023 72.1 kg (159 lb) 11/25/2022 73.5 kg (162 lb) Previous labs/tests for medication: Blood Pressure: BUN (mg/dL) Date Value 01/23/2023 22 07/09/2021 19 Sodium (mmol/L) Date Value 01/23/2023 137 07/09/2021 137 Last 1 Encounter BP Readings: Date: BP: 01/30/2023 130/58 Please advise. Thank you. Sarina Gomez LPN documented in this encounter [facility] 12-13-2022 Miscellaneous Notes Pt calls in for refill of levothyroxine 125 mcg. Previous rx went to [facility] instead of [facility]. Patient has been identified by name and date of : Yes Requested Prescriptions Pending Prescriptions Disp Refills metFORMIN (GLUCOPHAGE) 1,000 mg tablet 180 tablet 3 Sig: Take 1 tablet by mouth twice daily. levothyroxine (SYNTHROID) 125 mcg tablet 102 tablet 3 Sig: Take 1 tablet by mouth once daily. Except take 2 tablets one day a week RX INSTRUCTIONS: Patient aware RX will be sent to pharmacy. No need to notify patient. Keshia Arteaga LPN Patient has been identified by name and date of : Yes, Provider Dr. Alonzo Date 12/13/22 Time 10:05 am Patient phones for refill(s): Requested Prescriptions Pending Prescriptions Disp Refills metFORMIN (GLUCOPHAGE) 1,000 mg tablet 180 tablet 3 Sig: Take 1 tablet by mouth twice daily. Date of last office visit in primary care: 11/01/22 next apt 01/30/23 Last 2 Encounter Wt Readings: Date: Wt: 11/25/2022 73.5 kg (162 lb) 11/25/2022 73.5 kg (162 lb) Previous labs/tests for medication: Diabetes: Hemoglobin A1C (%) Date Value 10/24/2022 7.4 07/25/2022 7.9 10/18/2021 6.8 07/09/2021 8.0 Thank you. Alains Daniel LPN documented in this encounter [facility] 11-25-2022 Instructions Pamela Aranda MD - 11/25/2022 10:18 AM EDT Obtain Flonase nasal spray. One spray each nostril once daily. Rinse mouth after use. documented in this encounter [facility] 11-25-2022 History of Presen t illness Narrative Images from the original note were not included. . [facility] Note Patient name: Shannon Leija PCP: Darin Alonzo MD CC: Follow-up chronic cough HPI: Shannon Leija 82 year old female never smoker with PMH significant for follicular bronchiolitis, HTN, DM2, post nasal drip, hypothyroidism, GERD. 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 Last bronchoscopy in 2018 pertinent for bronchial inflammation. Initially treated with oral steroids then maintained on ICS. Currently taking Flovent 110 mcg 1 puff twice daily. At [facility] with me, she had been to local hospital for hypertensive urgency, started on Lisinopril which worsened her cough. Changed to amlodipine. Saw [facility] in June for acute worsening cough, treated with oral steroids and antibiotics. She continues to have some cough, mainly dry. No significant shortness of breath, no wheezing, no chest pain. No need for her albuterol inhaler. Cough does not awaken her from sleep. No postprandial cough or supine cough. Acid reflux symptoms currently controlled with proton pump inhibitor. She is complaining of sore throat and more frequent headaches. Having some sinus congestion. Believes headaches may be stress related. DATA: PFT: Review of spirometry shows no obstruction or restriction Imaging / Diagnostic Studies: DATE OF EXAM: Nov 07 2022 10:11AM WOX [id number] - XR CHEST 2V FRONTAL/LAT / PROCEDURE REASON: Follicular bronchiolitis (HCC) CLINICAL HISTORY: Follicular bronchiolitis (HCC) MQ: [id number] EXAM DATE/TIME: 11/07/2022 10:11 AM COMPARISON: Chest x-ray dated June 15, 2022 RESULT: Lines, tubes, and devices: None. Lungs and pleura: No consolidation. No lung mass. No pleural effusion. No pneumothorax. Cardiomediastinal silhouette: Normal cardiomediastinal silhouette. Bones and soft tissues: Osseous demineralization and degenerative changes. 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 ALLERGIES Allergen Reactions Lisinopril Cough Sulfa (Sulfonamide * Rash Childhood reaction. fluticasone (FLOVENT HFA) 110 mcg/actuation inhaler Inhale 1 Puff as instructed twice daily. VIA SPACER THEN RINSE AND GARGLE MOUTH WITH WATER. (Patient taking differently: Inhale 1 Puff as instructed twice daily. VIA SPACER THEN RINSE AND GARGLE MOUTH WITH WATER. Using once in the morning and increases to BID as needed) simvastatin (ZOCOR) 10 mg tablet Take 1 tablet by mouth once daily. levothyroxine (SYNTHROID) 125 mcg tablet Take 1 tablet by mouth once daily. Except take 2 tablets once day a week pantoprazole DR (PROTONIX) 20 mg tablet TAKE 1 TABLET BY MOUTH DAILY BEFORE BREAKFAST ON AN EMPTY STOMACH 1/2 HOUR BEFORE A MEAL SITagliptin (JANUVIA) 100 mg tablet Take 1 tablet by mouth once daily. guaiFENesin (MUCINEX) 600 mg 12 hr tablet Take 1 tablet by mouth twice daily. benzonatate (TESSALON PERLES) 100 mg capsule Take 1 capsule by mouth three times daily as needed for cough. (Patient not taking: Reported on 11/25/2022) albuterol HFA (VENTOLIN HFA) 90 mcg/actuation inhaler Inhale 2 Puffs as instructed every 4 hours as needed for wheezing/shortness of breath. or cough (Patient not taking: Reported on 11/25/2022) fluticasone (FLONASE) 50 mcg/actuation nasal spray Use 2 Sprays in each nostril once daily. Rinse mouth after use. for nasal drainage and congestion amLODIPine (NORVASC) 2.5 mg tablet Take 1 tablet by mouth once daily. blood sugar diagnostic (BLOOD GLUCOSE TEST) test strip Test blood sugar(s) 1 times daily. Dx: Type 2 DM - Controlled E11.9 Insulin: No glimepiride (AMARYL) 1 mg tablet TAKE 1 TABLET BY MOUTH TWICE DAILY WITH MEALS traZODone (DESYREL) 50 mg tablet TAKE 1 TABLET BY MOUTH DAILY AT BEDTIME metFORMIN (GLUCOPHAGE) 1,000 mg tablet Take 1 tablet by mouth twice daily. fexofenadine (CECY ALLERGY) 60 mg tablet Take 1 tablet by mouth twice daily. COMPOUNDED PRESCRIPTION One touch ultra 2, test strips Test 3 times daily. Dx: E11.9 Insulin: No COMPOUNDED PRESCRIPTION Easy Touch Health Pro test strips. To be tested 2 times a day Aspirin 81 mg Tab Take 81 mg by mouth. Gprcmjyjbasuq-Dkjdkynb-Avgbjp (CENTRUM SILVER) tab Take 1 tablet by mouth once daily. Social History Tobacco Use Smoking status: Never Smokeless tobacco: Never Tobacco comments: Parents did not smoke in childhood home. Spouse smoked in home for about 10 years. Vaping Use Vaping Use: Never used Substance Use Topics Alcohol use: Yes Comment: Rarely. Drug use: No FAMILY HISTORY Adopted: Yes Problem Relation Age of Onset other (unknow) Brother Patient adopted, unsure of family hx. PAST SURGICAL HISTORY Procedure Laterality Date APPENDECTOMY 05/1980 BONE DENSITY MULTIPLE SITES 11/2000 BRONCHOSCOPY COLONOSCOPY FLX DX W/COLLJ SPEC WHEN PFRMD 11/28/2003 Colonoscopy COLONOSCOPY FLX DX W/COLLJ SPEC WHEN PFRMD 03/13/14 Colonoscopy PAST SURGICAL HISTORY OF 02/1975 right thyroid lobectomy PAST SURGICAL HISTORY OF Left thigh cellulitis, had surgery to repair, states happened aprox 36 years ago. TOTAL ABDOMINAL HYSTERECT W/WO RMVL TUBE OVARY 05/1980 Hysterectomy, BETTY, partial salpingectomy PMH, Social history, family history and surgical history reviewed and updated in EMR REVIEW OF SYSTEMS: CONSTITUTIONAL: No fevers, chills, nightsweats, unintended weight loss HEENT: Positive headaches, nasal congestion/sinus symptoms EYES: No eye pain CARDIOVASCULAR: No chest pain, dyspnea, palpitations, orthopnea, PND, edema. PULM: See HPI GI: No dysphagia/odynophagia, problematic reflux PSY: Anxiety and stress INTEGUMENTARY: No new skin changes or rashes PHYSICAL EXAMINATION: BP 132/68 Pulse 82 Resp 12 Ht 5' 4 (1.63m) Wt 162 lb (73.5kg) SpO2 96% BMI 27.79 kg/(m^2). General Appearance: Age-appropriate female, NAD Skin: Skin color, texture, turgor normal, no suspicious rashes or lesions. Head: Normocephalic, no masses, lesions, tenderness or abnormalities. Eyes: Sclera, conjunctiva normal Oropharynx: No oral lesions, no posterior pharyngeal erythema or drainage, no thrush Neck: No JVD, no masses, no adenopathy Lungs: Normal to percussion, no wheezes or crackles Heart: Regular rate and rhythm, systolic murmur Extremities: No edema or clubbing Assessment/Plan: 1. Follicular bronchiolitis -Chronic cough related to her underlying follicular bronchiolitis but believe current issues related to postnasal drip -Continue Flovent at 110 mcg twice daily and as needed albuterol 2. Postnasal drip -Sinus disease with postnasal drip contributing to cough and sore throat -Instructed patient to restart Flonase nasal spray 3. GERD -Some soreness in her throat may be due to acid reflux disease -Continue proton pump inhibitor and antireflux measures Pamela Aranda MD [facility] documented in this encounter [facility] 11-25-2022 Nurse Note Intake information documented in the prior visit with ANUEL Hollins today. documented in this encounter [facility] 11-25-2022 History of Presen t illness Narrative PULM FUNCTION SMARTBLOCK: Provider: Pamela Aranda MD Assisting Tech: ANUEL Hollins Spirometry: 1 documented in this encounter [facility] 11-09-2022 Miscellaneous Notes Patient has been identified by name and date of : Yes, Provider Dr. Alonzo Date 11-09-22 Time 8:38 am Patient phones for refill(s): Requested Prescriptions Pending Prescriptions Disp Refills simvastatin (ZOCOR) 10 mg tablet 90 tablet 3 Sig: Take 1 tablet by mouth once daily. Date of last office visit with pcp: 11-01-22. Next appt: 01-30-23 Last 2 Encounter Wt Readings: Date: Wt: 11/01/2022 73.5 kg (162 lb) 08/01/2022 74.4 kg (164 lb) Previous labs/tests for medication: Cholesterol: HDL Cholesterol (mg/dL) Date Value 10/24/2022 59 04/01/2021 51 LDL Cholesterol (mg/dL) Date Value 10/24/2022 69 04/01/2021 72 ALT (U/L) Date Value 10/24/2022 21 07/09/2021 15 Non HDL Cholesterol (mg/dL) Date Value 10/24/2022 82 04/01/2021 89 Please advise. Thank you. Jean Kaba RN documented in this encounter [facility] 11-07-2022 History of Presen t illness Narrative Radiology Service Progress Note PATIENT NAME: Shannon Leija DATE OF SERVICE: November 07, 2022 TIME: 10:02 AM PATIENT IDENTITY VERIFICATION COMPLETED USING TWO (2) IDENTIFIERS: Name and Date of confirmed by patient verbally. FALL SCREENING: Has the patient had 2 falls in the last year or 1 fall with injury or currently using an Ambulatory Assistive Device (Walker, Cane, Wheelchair, Crutches, etc.)? No PATIENT GENDER DATA: Female. status: : No status: NO. PATIENT RELEVANT IMPLANT DATA REVIEWED: Yes RADIOLOGY DEPARTMENT: General X-ray: Exam(s) Completed: Chest X-Ray PERIPHERAL IV DATA: Not applicable SIGNED BY: RT Rogerio(R) November 07, 2022 10:02 AM documented in this encounter [facility] 11-01-2022 History of Presen t illness Narrative Reason for Visit Patient presents with: F/U Diabetes 3 Month Shannon Leija is a 82 year old female who presents here today for Above Complaints.. Health Maintenance DTAP,TDAP,TD(1 - Tdap) ADVANCE DIRECTIVE DISCUSSION DEPRESSION ASSESSMENT BP CONTROLLED (<130/80) URINE ALBUMIN:CREATININE RATIO DIABETIC FOOT EXAM HPI Here for Diabetes Mellitus and chronic medical issues follow up. Diabetes Mellitus: she is well controlled with her diet and her current medication regimen is working well for her. Hba1c is 7.4, which is down from the last time, at 7.9. she notes she was on steroids at that time. She joined [employer] Right now she is doing the treadmill and she would like to walk out side. With the food she knows staying away from carbs will help her some. Patient notes she has been careful with her food. HTN: Compliant with medications. Denies any chest pain, palpitations, or edema. No SOB. Doesn't check BP at home generally. Careful with diet to avoid salt, trying to eat more fruits and vegetables, exercises regularly. HPL: Reviewed test results with patient , takes medications regularly , does not report side effects. Conscious to avoid red meats, full fat dairy and its by products. Exercising 3 to 5 times a week. Hypothyroidism. She is doing well on her current dose of Synthroid. Denies fatigue, cold intolerance and swelling in feet. TSH recently checked and normal. No problem-specific Assessment & Plan notes found for this encounter. 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 PAST SURGICAL HISTORY Procedure Laterality Date APPENDECTOMY 05/1980 BONE DENSITY MULTIPLE SITES 11/2000 BRONCHOSCOPY COLONOSCOPY FLX DX W/COLLJ SPEC WHEN PFRMD 11/28/2003 Colonoscopy COLONOSCOPY FLX DX W/COLLJ SPEC WHEN PFRMD 03/13/14 Colonoscopy PAST SURGICAL HISTORY OF 02/1975 right thyroid lobectomy PAST SURGICAL HISTORY OF Left thigh cellulitis, had surgery to repair, states happened aprox 36 years ago. TOTAL ABDOMINAL HYSTERECT W/WO RMVL TUBE OVARY 05/1980 Hysterectomy, BETTY, partial salpingectomy FAMILY HISTORY Adopted: Yes Problem Relation Age of Onset other (unknow) Brother Patient adopted, unsure of family hx. Social History Tobacco Use Smoking status: Never Smokeless tobacco: Never Tobacco comments: Parents did not smoke in childhood home. Spouse smoked in home for about 10 years. Vaping Use Vaping Use: Never used Substance Use Topics Alcohol use: Yes Comment: Rarely. Drug use: No Past medical history, appointments, medications, allergies reviewed. Pertinent Lab/Diagnostic Studies are reviewed and discussed today Current Outpatient Medications: levothyroxine (SYNTHROID) [address] (PROTONIX) 20 mg tablet fluticasone (FLOVENT HFA) 110 mcg/actuation inhaler SITagliptin (JANUVIA) 100 mg tablet guaiFENesin (MUCINEX) 600 mg 12 hr tablet benzonatate (TESSALON PERLES) 100 mg capsule albuterol HFA (VENTOLIN HFA) 90 mcg/actuation inhaler fluticasone (FLONASE) 50 mcg/actuation nasal spray amLODIPine (NORVASC) 2.5 mg tablet blood sugar diagnostic (BLOOD GLUCOSE TEST) test strip glimepiride (AMARYL) 1 mg tablet traZODone (DESYREL) 50 mg tablet simvastatin (ZOCOR) 10 mg tablet metFORMIN (GLUCOPHAGE) 1,000 mg tablet fexofenadine (CECY ALLERGY) 60 mg tablet COMPOUNDED PRESCRIPTION COMPOUNDED PRESCRIPTION Aspirin 81 mg Tab Rpbjnzjjwrqdp-Ohuxupuz-Jvhzhs (CENTRUM SILVER) tab Review of Systems CONSTITUTIONAL: No fevers, chills night sweats, unintended weight loss CARDIOVASCULAR: No chest pain, dyspnea, palpitations, orthopnea, PND, ankle edema. PULM: No dyspnea, unexplained cough. GI: No dysphagia/odynophagia, problematic reflux, constipation, diarrhea, changes in stool habits, hematochezia, melena. : No new urinary complaints, including dysuria, gross hematuria or pyuria. NEURO: No new balance problems, peripheral weakness/paresthesias or numbness of concern. Physical Exam BP 130/64 (BP Site: Left Arm, BP Position: Sitting, BP Cuff Size: Large Adult) Pulse 82 Temp 36.3 C (97.4 F) Resp 12 Ht 162.6 cm (5' 4) Wt 73.5 kg (162 lb) SpO2 97% BMI 27.81 kg/m General appearance: Well appearing, alert, in no acute distress, well nourished. Skin: Skin color, texture, turgor normal, no suspicious rashes or lesions Head: Normocephalic, no masses, lesions, tenderness or abnormalities Eyes: Anicteric sclera. Pupils are equally round and reactive to light. Extraocular movements are intact. Lungs: Lungs clear to auscultation. No wheezing, rhonchi, rales Heart: RRR without murmur, gallop, or rubs. Feet: Shoes and socks removed, No deformities, ulcers, calluses, normal distal pulses, and sensitive to 10 gm monofilament ASSESSMENT/PLAN: 1. Essential hypertension - ICD9: 401.9, ICD10: I10 (primary diagnosis) - good control - Recommended regular aerobic exercise. - Recommend home blood pressure monitoring, to bring results in on next visit - Goal of BP <130/80 2. Hyperlipidemia, unspecified hyperlipidemia type - ICD9: 272.4, ICD10: E78.5 - good control - Continue current medication. 3. Acquired hypothyroidism - ICD9: 244.9, ICD10: E03.9 - Instructed patient on importance of taking on an empty stomach either first thing in the morning or at bedtime. Stable - Continue current medications 4. Controlled type 2 diabetes mellitus without complication, unspecified whether fdc insulin use (HCC) - ICD9: 250.00, ICD10: E11.9 Cont the current medication and exercise regimen Darin Alonzo MD documented in this encounter [facility] 09-21-2022 Miscellaneous Notes Med updated to reflect current dosing. Griselda Lema APRN.CNP Patient is taking 2 tablets one day a week and 1 tablet the rest of the week. Informed patient to continue that dosing and medication list will be updated. Thyroid level is WNL. Continue with current dose. Thank you Griselda Lema APRN.CNP Pt calling to ask PCP to advise on her recent TSH result. Thank you. documented in this encounter [facility] 08-23-2022 Miscellaneous Notes August 23, 2022 PID: [id number] Shannon Leija [address] [place] [address] Dear Ms. Leija, We are pleased to inform you that the results of your recent breast imaging exam on 08/22/2022 are normal. Early detection of cancer is very important. We also understand recommendations regarding breast cancer screening are controversial. Please discuss with your primary care provider which strategy is best for you and whether a mammogram is right for you. Your imaging studies and report will be kept on file at [facility] as part of your permanent medical record and are available for your continuing care. Thank you for allowing us to help in meeting your health care needs. Sincerely, Dr. Hines Interpreting Radiologist [facility] (Normal over 40) documented in this encounter [facility] 08-22-2022 History of Presen t illness Narrative Radiology Service Progress Note PATIENT NAME: Shannon Leija DATE OF SERVICE: August 22, 2022 TIME: 9:45 AM PATIENT IDENTITY VERIFICATION COMPLETED USING TWO (2) IDENTIFIERS: Name and Date of confirmed by patient verbally. FALL SCREENING: Has the patient had 2 falls in the last year or 1 fall with injury or currently using an Ambulatory Assistive Device (Walker, Cane, Wheelchair, Crutches, etc.)? No PATIENT GENDER DATA: Female. status: : No status: NO. PATIENT RELEVANT IMPLANT DATA REVIEWED: Yes RADIOLOGY DEPARTMENT: Mammography PERIPHERAL IV DATA: Not applicable SIGNED BY: RT Autumn(R) August 22, 2022 9:45 AM documented in this encounter [facility] 08-19-2022 Miscellaneous Notes Patient has been identified by name and date of : Yes Patient phones for refill(s): Requested Prescriptions Pending Prescriptions Disp Refills levothyroxine (SYNTHROID) 125 mcg tablet [Pharmacy Med Name: Levothyroxine Sodium 125 MCG Oral Tablet] 90 tablet 3 Sig: TAKE 1 TABLET BY MOUTH ONCE DAILY pantoprazole DR (PROTONIX) 20 mg tablet [Pharmacy Med Name: Pantoprazole Sodium 20 MG Oral Tablet Delayed Release] 90 tablet 3 Sig: TAKE 1 TABLET BY MOUTH DAILY BEFORE BREAKFAST ON AN EMPTY STOMACH 1/2 HOUR BEFORE A MEAL Date of last office visit in primary care: 08/01/22 Last 2 Encounter Wt Readings: Date: Wt: 08/01/2022 74.4 kg (164 lb) 07/15/2022 74.8 kg (165 lb) Previous labs/tests for medication: Thyroid: TSH Date Value 07/25/2022 4.780 mIU/L 10/18/2021 4.940 uU/mL Please advise. Thank you. Kathia Swanson LPN documented in this encounter [facility] 08-01-2022 History of Presen t illness Narrative Reason for Visit No chief complaint on file. Shannon Leija is a 82 year old female who presents here today for Above Complaints.. Health Maintenance DTAP,TDAP,TD(1 - Tdap) DEPRESSION ASSESSMENT DILATED RETINAL EXAM HPI Reviewed the labs. Tsh is a little high, hba1c is elevated but the rest of the numbers are in the normal range. Hypothyroid: tsh is 4.7, she will increase the thyroid to 2 pills one day a week. Diabetes Mellitus: she had been on steroids, she took the prednisone for 6 days for the cough, the cough got better. HPL: Reviewed test results with patient , takes medications regularly , does not report side effects. Conscious to avoid red meats, full fat dairy and its by products. Exercising 3 to 5 times a week. She is sleeping better. HPL: Reviewed test results with patient , takes medications regularly , does not report side effects. Conscious to avoid red meats, full fat dairy and its by products. Exercising 3 to 5 times a week. HTN: Compliant with medications. Denies any chest pain, palpitations, or edema. No SOB. Doesn't check BP at home generally. Careful with diet to avoid salt, trying to eat more fruits and vegetables, exercises regularly. No problem-specific Assessment & Plan notes found for this encounter. 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 PAST SURGICAL HISTORY Procedure Laterality Date APPENDECTOMY 05/1980 BONE DENSITY MULTIPLE SITES 11/2000 BRONCHOSCOPY COLONOSCOPY FLX DX W/COLLJ SPEC WHEN PFRMD 11/28/2003 Colonoscopy COLONOSCOPY FLX DX W/COLLJ SPEC WHEN PFRMD 03/13/14 Colonoscopy PAST SURGICAL HISTORY OF 02/1975 right thyroid lobectomy PAST SURGICAL HISTORY OF Left thigh cellulitis, had surgery to repair, states happened aprox 36 years ago. TOTAL ABDOMINAL HYSTERECT W/WO RMVL TUBE OVARY 05/1980 Hysterectomy, BETTY, partial salpingectomy FAMILY HISTORY Adopted: Yes Problem Relation Age of Onset other (unknow) Brother Patient adopted, unsure of family hx. Social History Tobacco Use Smoking status: Never Smokeless tobacco: Never Tobacco comments: Parents did not smoke in childhood home. Spouse smoked in home for about 10 years. Vaping Use Vaping Use: Never used Substance Use Topics Alcohol use: Yes Comment: Rarely. Drug use: No Past medical history, appointments, medications, allergies reviewed. Pertinent Lab/Diagnostic Studies are reviewed and discussed today Current Outpatient Medications: fluticasone (FLOVENT HFA) 110 mcg/actuation inhaler SITagliptin (JANUVIA) 100 mg tablet guaiFENesin (MUCINEX) 600 mg 12 hr tablet benzonatate (TESSALON PERLES) 100 mg capsule albuterol HFA (VENTOLIN HFA) 90 mcg/actuation inhaler fluticasone (FLONASE) 50 mcg/actuation nasal spray amLODIPine (NORVASC) 2.5 mg tablet blood sugar diagnostic (BLOOD GLUCOSE TEST) test strip glimepiride (AMARYL) 1 mg tablet traZODone (DESYREL) 50 mg tablet simvastatin (ZOCOR) 10 mg tablet metFORMIN (GLUCOPHAGE) 1,000 mg tablet levothyroxine (SYNTHROID) [address] (PROTONIX) 20 mg tablet fexofenadine (CECY ALLERGY) 60 mg tablet COMPOUNDED PRESCRIPTION COMPOUNDED PRESCRIPTION Aspirin 81 mg Tab Minmlzglweifg-Zgtmkghk-Daqljq (CENTRUM SILVER) tab Review of Systems CONSTITUTIONAL: No fevers, chills night sweats, unintended weight loss CARDIOVASCULAR: No chest pain, dyspnea, palpitations, orthopnea, PND, ankle edema. PULM: No dyspnea, unexplained cough. GI: No dysphagia/odynophagia, problematic reflux, constipation, diarrhea, changes in stool habits, hematochezia, melena. : No new urinary complaints, including dysuria, gross hematuria or pyuria. NEURO: No new balance problems, peripheral weakness/paresthesias or numbness of concern. Physical Exam BP 130/62 (BP Site: Left Arm, BP Position: Sitting, BP Cuff Size: Large Adult) Pulse 83 Temp 36.5 C (97.7 F) Resp 12 Ht 162.6 cm (5' 4) Wt 74.4 kg (164 lb) SpO2 99% BMI 28.15 kg/m General appearance: Well appearing, alert, in no acute distress, well nourished. Skin: Skin color, texture, turgor normal, no suspicious rashes or lesions Head: Normocephalic, no masses, lesions, tenderness or abnormalities Eyes: Anicteric sclera. Pupils are equally round and reactive to light. Extraocular movements are intact. Lungs: Lungs clear to auscultation. No wheezing, rhonchi, rales Heart: RRR without murmur, gallop, or rubs. Extremities: No deformities, edema, skin discoloration, clubbing or cyanosis. Good capillary refill. ASSESSMENT/PLAN: 1. Controlled type 2 diabetes mellitus without complication, unspecified whether fdc insulin use (HCC) - ICD9: 250.00, ICD10: E11.9 (primary diagnosis) Controlled. - Continue current medications 2. Acquired hypothyroidism - ICD9: 244.9, ICD10: E03.9 - Instructed patient on importance of taking on an empty stomach either first thing in the morning or at bedtime. We changed the thyroid medication for the patient. 3. Essential hypertension - ICD9: 401.9, ICD10: I10 - good control - Recommended regular aerobic exercise. - Recommend home blood pressure monitoring, to bring results in on next visit - Goal of BP <130/80 4. Hyperlipidemia, unspecified hyperlipidemia type - ICD9: 272.4, ICD10: E78.5 - good control - Continue current medication. Darin Alonzo MD documented in this encounter [facility] 08-01-2022 Nurse Note Sees at [facility] due to see him next year documented in this encounter [facility] 07-28-2022 Miscellaneous Notes Order placed. Last screening on 08/19/21 so needs completed after this date. Please let patient know. Thank you Griselda Lema APRN.OLESYA Patient calls to request order for yearly mammogram be placed. Last mammogram completed 08/19/2021. Please call patient at [phone] to schedule once order is placed. Yoon Jones RN documented in this encounter [facility] 07-19-2022 Miscellaneous Notes Patient has been identified by name and date of : Yes Patient phones for refill(s): Requested Prescriptions Pending Prescriptions Disp Refills fluticasone (FLOVENT HFA) 110 mcg/actuation inhaler 3 Sig: Inhale 1 Puff as instructed twice daily. VIA SPACER THEN RINSE AND GARGLE MOUTH WITH WATER. Date of last office visit in primary care: 06/15/22 Future visit: 08/01/22 Last 2 Encounter Wt Readings: Date: Wt: 07/15/2022 74.8 kg (165 lb) 06/17/2022 73.9 kg (163 lb) Previous labs/tests for medication: Blood Pressure: BUN (mg/dL) Date Value 04/15/2022 15 07/09/2021 19 Sodium (mmol/L) Date Value 04/15/2022 138 07/09/2021 137 Last 1 Encounter BP Readings: Date: BP: 07/15/2022 138/80 Liver Function: ALT (U/L) Date Value 04/15/2022 23 07/09/2021 15 AST (U/L) Date Value 04/15/2022 30 07/09/2021 22 Please advise. Thank you. 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 No underlying autoimmune disorder noted. Treated with oral steroids and maintained on inhaled steroids. Repeat bronchoscopy in 2018 showed persistent bronchial inflammation and negative cultures. The patient was seen for an acute visit on 06/17 secondary to increased cough and congestion. Covid and influenza negative. Patient had been treated with Doxycycline and Azithromycin per PCP and UC without any improvement. CXR with no acute findings. I started her on a Prednisone burst at that time. Today, patient states she is improved, but continues with cough. Thinks she is at baseline. Claims to be consistently compliant with prescribed maintenance Rx Flovent daily. Taking Flonase nightly and OTC Cecy as needed. Using Tessalon Perles at night. Patient previously discontinued Singulair because she did not notice a difference. Daily cough. Non-productive. No hemoptysis. No wheezing. No dyspnea at rest. Exertional dyspnea has not changed. Walks 1 mile most days. 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 Allergies: Lisinopril Cough Sulfa (Sulfonamide * Rash Comment:Childhood reaction. SITagliptin (JANUVIA) 100 mg tablet Take 1 tablet by mouth once daily. guaiFENesin (MUCINEX) 600 mg 12 hr tablet Take 1 tablet by mouth twice daily. benzonatate (TESSALON PERLES) 100 mg capsule Take 1 capsule by mouth three times daily as needed for cough. albuterol HFA (VENTOLIN HFA) 90 mcg/actuation inhaler Inhale 2 Puffs as instructed every 4 hours as needed for wheezing/shortness of breath. or cough fluticasone (FLONASE) 50 mcg/actuation nasal spray Use 2 Sprays in each nostril once daily. Rinse mouth after use. for nasal drainage and congestion amLODIPine (NORVASC) 2.5 mg tablet Take 1 tablet by mouth once daily. blood sugar diagnostic (BLOOD GLUCOSE TEST) test strip Test blood sugar(s) 1 times daily. Dx: Type 2 DM - Controlled E11.9 Insulin: No glimepiride (AMARYL) 1 mg tablet TAKE 1 TABLET BY MOUTH TWICE DAILY WITH MEALS traZODone (DESYREL) 50 mg tablet TAKE 1 TABLET BY MOUTH DAILY AT BEDTIME simvastatin (ZOCOR) 10 mg tablet TAKE 1 TABLET BY MOUTH ONCE DAILY metFORMIN (GLUCOPHAGE) 1,000 mg tablet Take 1 tablet by mouth twice daily. levothyroxine (SYNTHROID) 125 mcg tablet Take 1 tablet by mouth once daily. pantoprazole DR (PROTONIX) 20 mg tablet Take 1 tablet by mouth daily before breakfast. Take on empty stomach, 1/2 hr before meal. fluticasone (FLOVENT HFA) 110 mcg/actuation inhaler Inhale 1 Puff as instructed twice daily. VIA SPACER THEN RINSE AND GARGLE MOUTH WITH WATER. fexofenadine (CECY ALLERGY) 60 mg tablet Take 1 tablet by mouth twice daily. COMPOUNDED PRESCRIPTION One touch ultra 2, test strips Test 3 times daily. Dx: E11.9 Insulin: No COMPOUNDED PRESCRIPTION Easy Touch Health Pro test strips. To be tested 2 times a day Aspirin 81 mg Tab Take 81 mg by mouth. Igbyhhasniwls-Bwlkmexg-Vqbsfg (CENTRUM SILVER) tab Take 1 tablet by mouth once daily. Social History Tobacco Use Smoking status: Never Smokeless tobacco: Never Tobacco comments: Parents did not smoke in childhood home. Spouse smoked in home for about 10 years. Vaping Use Vaping Use: Never used Substance Use Topics Alcohol use: Yes Comment: Rarely. Drug use: No Family History Adopted: Yes Problem Relation Age of Onset other (unknow) Brother Patient adopted, unsure of family hx. PAST SURGICAL HISTORY Procedure Laterality Date APPENDECTOMY 05/1980 BONE DENSITY MULTIPLE SITES 11/2000 BRONCHOSCOPY COLONOSCOPY FLX DX W/COLLJ SPEC WHEN PFRMD 11/28/2003 Colonoscopy COLONOSCOPY FLX DX W/COLLJ SPEC WHEN PFRMD 03/13/14 Colonoscopy PAST SURGICAL HISTORY OF 02/1975 right thyroid lobectomy PAST SURGICAL HISTORY OF Left thigh cellulitis, had surgery to repair, states happened aprox 36 years ago. TOTAL ABDOMINAL HYSTERECT W/WO RMVL TUBE OVARY 05/1980 Hysterectomy, BETTY, partial salpingectomy I reviewed the past medical history, family history, social history and surgical history with changes noted above and updated in EMR. IMMUNIZATIONS Prevnar 13 - 08/11/2014 Pneumovax - 08/10/2015, 08/29/2003 Influenza - 07/02/2022 COVID-19 - 07/04/2022, 12/23/2021, 07/08/2021, 11/25/2020, 10/29/2020 ROS: General: Generally feels cough. Appetite good. Eyes, Ears, nose, throat: Post nasal drip improved with Flonase. No rhinorrhea, purulent nasal discharge, epistaxis. No hoarseness. Vision stable. Cardiac: No angina, edema, orthopnea. Resp: See HPI. GI: No heartburn, on Pantoprazole. No dysphagia, diarrhea. Musculoskeletal: No pain. Neuro: No headache, focal weakness, tremor. Skin: No rash. Otherwise negative. PHYSICAL EXAMINATION: BP 138/80 Pulse 81 Resp 15 Wt 74.8 kg (165 lb) SpO2 99% BMI 28.32 kg/m Gen: No acute distress. Cooperative with examination. ENT: Oral hygeine and dentition good. Pharynx clear. No sign of oral thrush. Resp: No stridor, accessory respiratory muscle use, supra-sternal or intercostal retractions. No wheezes, crackles. CV: Regular rythm. Heart tones normal. Radial pulses normal. Abd: Non distended. MSK: No kyphoscoliosis. Ext: Warm and well perfused. No clubbing, cyanosis, edema. Skin: No rash, ecchymoses. Neuro: Mental status normal. Affect normal. No tremor. DATA: PFT, 11/08/2021 IMPRESSION: The flow volume loop is normal. Spirometry is normal. Electronically Signed On 11-08-2021 11:38:46 EST by Yashira Giordano CXR, 06/15/2022 IMPRESSION: No acute radiographic abnormality. COMPARISON: 03/21/2022 RESULT: Lines, tubes, and devices: None. Lungs and pleura: No consolidation. No lung mass. No pleural effusion. No pneumothorax. Cardiomediastinal silhouette: Normal cardiomediastinal silhouette. Bones and soft tissues: Unremarkable. Mild pectus excavatum deformity ASSESSMENT/PLAN: 1. Follicular bronchiolitis (HCC) - ICD9: 491.9, ICD10: J42 (primary diagnosis) No evidence of autoimmune disorder. Recommend Flovent daily. Rinse mouth after each use to help prevent oral thrush. Spirometry at next office visit. 2. Cough, unspecified type - ICD9: 786.2, ICD10: R05.9 See #1. Continue Flonase and OTC Cecy. Obtain allergy labs. May need to restart Singulair to see if cough improves. - IGE BLD - EOSINOPHIL ABS COUNT - [facility] 3. Gastroesophageal reflux disease without esophagitis - ICD9: 530.81, ICD10: K21.9 Symptoms controlled with PPI 4. Post-nasal drip - ICD9: 784.91, ICD10: R09.82 See #2. - IGE BLD - EOSINOPHIL ABS COUNT - [facility] Christy Williamson PA-C documented in this encounter [facility] 2022 Miscellaneous Notes Patient has been identified by name and date of : Yes Patient phones for refill(s): Requested Prescriptions Pending Prescriptions Disp Refills SITagliptin (JANUVIA) 100 mg tablet 90 tablet 3 Sig: Take 1 tablet by mouth once daily. Date of last office visit in primary care: 04/19/2022 , has appt 08/01/2022 Last 2 Encounter Wt Readings: Date: Wt: 06/17/2022 73.9 kg (163 lb) 06/15/2022 75.3 kg (166 lb) Previous labs/tests for medication: Diabetes: Hemoglobin A1C (%) Date Value 04/15/2022 6.8 10/18/2021 6.8 07/09/2021 8.0 Please advise. Thank you. Sarina Gomez LPN documented in this encounter [facility] 06-17-2022 Instructions Christy Williamson PA-C - 06/17/2022 1:51 PM EDT Prednisone 20 mg - take 2 tablets daily for 5 days. Check blood sugars while on Prednisone. Mucinex 1 tablet twice daily as needed to help thin secretions. documented in this encounter [facility] 06-17-2022 History of Presen t illness Narrative [facility], 06/17/2022: Name: Shannon Leija : 1940 The patient is here today with spouse, who attends the entire visit, exam and discussion. 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 No underlying autoimmune disorder noted. Treated with oral steroids and maintained on inhaled steroids. Repeat bronchoscopy in 2018 showed persistent bronchial inflammation and negative cultures. The patient is here for an acute visit. Patient presented to on 06/02 with cough and congestion for 1 week. Covid 19 and influenza both negative. Patient diagnosed with sinobronchitis and placed on Doxycycline. Patient presented to PCP 5 days later after completing antibiotics with persistent symptoms. At that time, patient was placed on Azithromycin, Benzonatate, and Flonase with a 1 week follow up. At that follow up patient still with persistent non productive cough. CXR revealed no acute abnormality. Today, patient reports that she continues with persistent cough. Describes as non-productive although at times she feels she needs to cough something up but can't. It is keeping her up at night. Using cough drops and benzonatate without much relief. Claims to be consistently compliant with prescribed maintenance Rx Flovent 1 inhalation twice daily. Using rescue bronchodilator more since cough started. No fevers or chills. Reports chest tenderness secondary to coughing. No wheezing. No dyspnea. Taking Flonase nightly. Has not significantly improved her cough. Seems to have improved sinus congestion. PMH: Updated with patient today. FAMH: Updated with patient today. SOCH: Updated with patient today. IMMUNIZATIONS Prevnar - 08/11/2014 Pneumovax - 08/10/2015, 08/29/2003 Influenza - 07/03/2021 COVID-19 - 12/23/2021, 07/08/2021, 11/25/2020, 10/29/2020 ROS: General: Generally feels cough. Appetite good. Eyes, Ears, nose, throat: Post nasal drip, rhinorrhea. No purulent nasal discharge, epistaxis. No hoarseness. Vision stable. Cardiac: No angina, edema, orthopnea. Resp: See HPI. GI: No heartburn, dysphagia. Musculoskeletal: No pain. Neuro: No headache, focal weakness, tremor. Skin: No rash. Otherwise negative. Allergies were reviewed and updated, and medications were reconciled with the patient. PHYSICAL EXAMINATION: BP 142/80 Pulse 99 Resp 19 Wt 73.9 kg (163 lb) SpO2 98% BMI 27.98 kg/m Gen: No acute distress. Cooperative with examination. ENT: Oral hygeine and dentition good. Pharynx clear. No halitosis. No sign of oral thrush. Resp: No stridor, accessory respiratory muscle use, supra-sternal or intercostal retractions. No wheezes, crackles. CV: Regular rythm. Heart tones normal. Radial pulses normal. Abd: Non distended. MSK: No kyphoscoliosis. Ext: Warm and well perfused. No clubbing, cyanosis, edema. Skin: No rash, ecchymoses. Neuro: Mental status normal. Affect normal. No tremor. DATA REVIEW: PFT, 11/08/2021 IMPRESSION: The flow volume loop is normal. Spirometry is normal. Electronically Signed On 11-08-2021 11:38:46 EST by Yashira Giordano CXR, 06/15/2022 IMPRESSION: No acute radiographic abnormality. COMPARISON: 03/21/2022 RESULT: Lines, tubes, and devices: None. Lungs and pleura: No consolidation. No lung mass. No pleural effusion. No pneumothorax. Cardiomediastinal silhouette: Normal cardiomediastinal silhouette. Bones and soft tissues: Unremarkable. Mild pectus excavatum deformity ASSESSMENT/PLAN: 1. Acute cough - ICD9: 786.2, ICD10: R05.1 (primary diagnosis) Patient treated with a course of doxycycline and azithromycin without any improvement in symptoms. CXR with no acute findings. Continue Flonase nasal spray. Continue Benzonatate as needed for cough. Start Prednisone 20 mg 2 tablets for 5 days. Instructed patient to check blood sugars regularly. Mucinex 1-2 tablets as needed to help thin secretions. Monitor need to restart Singulair. - PREDNISONE 20 MG TABLET - GUAIFENESIN ER 600 MG TABLET, EXTENDED RELEASE 12 HR 2. 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 Rinse mouth after each use to help prevent oral thrush. 3. Gastroesophageal reflux disease without esophagitis - ICD9: 530.81, ICD10: K21.9 Continue PPI I addressed the questions of the patient and spouse, and they expressed understanding and acceptance of my answers. Christy Williamson PA-C documented in this encounter [facility] 06-15-2022 History of Presen t illness Narrative Radiology Service Progress Note PATIENT NAME: Shannon Leija DATE OF SERVICE: June 15, 2022 TIME: 8:32 AM PATIENT IDENTITY VERIFICATION COMPLETED USING TWO (2) IDENTIFIERS: Name and Date of confirmed by patient verbally. FALL SCREENING: Has the patient had 2 falls in the last year or 1 fall with injury or currently using an Ambulatory Assistive Device (Walker, Cane, Wheelchair, Crutches, etc.)? No PATIENT GENDER DATA: Female. status: : No status: NO. PATIENT RELEVANT IMPLANT DATA REVIEWED: Not Applicable RADIOLOGY DEPARTMENT: General X-ray: Exam(s) Completed: Chest X-Ray PERIPHERAL IV DATA: Not applicable SIGNED BY: RT James(R) June 15, 2022 8:32 AM documented in this encounter [facility] 06-15-2022 History of Presen t illness Narrative CC: Patient presents with: Recheck: 1 week cough follow up HPI Shannon Leija is a 81 year old female who presents today for follow up on cough. Was in urgent care 2 weeks ago and prescribed doxycyline. Saw Michelle AIRPLANE FLIGHT ATTENDANT last week and given azithromycin, benzonatate, flonase, and albuterol inhaler. Has a chronic cough that she sees pulmonology for but states this is a different and more severe cough. Patient returns today still with persistent non productive cough that will be so severe it makes her gag and then also causes a sore throat. Benzonate helps some, patient finished z-pack and continuing flonase nasal spray. Is supposed to go out of town next week for her birthday and wedding anniversary and wanted to be checked out prior to going. Patient reports sinus drainage which she feels is causing the cough. Denies fever, chills, shortness of breath, wheezing, chest pain, headaches, or other concerns. REVIEW OF SYSTEMS General: no fevers, no chills, no night sweats, no recurrent infections, no change in appetite, no change in energy, and no significant changes in weight HEENT: no frequent or significant headaches, no changes in hearing, no visual changes, no nose bleeds Respiratory: See HPI Cardiovascular: no chest pain, no chest pressure, no palpitations, and no swelling GI: No nausea, vomiting, or diarrhea Neurologic: No headache, weakness, numbness, tingling, dizziness, syncope. 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 PAST SURGICAL HISTORY Procedure Laterality Date APPENDECTOMY 05/1980 BONE DENSITY MULTIPLE SITES 11/2000 BRONCHOSCOPY COLONOSCOPY FLX DX W/COLLJ SPEC WHEN PFRMD 11/28/2003 Colonoscopy COLONOSCOPY FLX DX W/COLLJ SPEC WHEN PFRMD 03/13/14 Colonoscopy PAST SURGICAL HISTORY OF 02/1975 right thyroid lobectomy PAST SURGICAL HISTORY OF Left thigh cellulitis, had surgery to repair, states happened aprox 36 years ago. TOTAL ABDOMINAL HYSTERECT W/WO RMVL TUBE OVARY 05/1980 Hysterectomy, BETTY, partial salpingectomy ALLERGIES Lisinopril and Sulfa (Sulfonamide Antibiotics) MEDICATIONS albuterol HFA (VENTOLIN HFA) 90 mcg/actuation inhaler Inhale 2 Puffs as instructed every 4 hours as needed for wheezing/shortness of breath. or cough benzonatate (TESSALON PERLES) 100 mg capsule Take 1 capsule by mouth three times daily as needed for cough. fluticasone (FLONASE) 50 mcg/actuation nasal spray Use 2 Sprays in each nostril once daily. Rinse mouth after use. for nasal drainage and congestion amLODIPine (NORVASC) 2.5 mg tablet Take 1 tablet by mouth once daily. montelukast (SINGULAIR) 10 mg tablet Take 1 tablet by mouth daily at bedtime. blood sugar diagnostic (BLOOD GLUCOSE TEST) test strip Test blood sugar(s) 1 times daily. Dx: Type 2 DM - Controlled E11.9 Insulin: No glimepiride (AMARYL) 1 mg tablet TAKE 1 TABLET BY MOUTH TWICE DAILY WITH MEALS traZODone (DESYREL) 50 mg tablet TAKE 1 TABLET BY MOUTH DAILY AT BEDTIME simvastatin (ZOCOR) 10 mg tablet TAKE 1 TABLET BY MOUTH ONCE DAILY metFORMIN (GLUCOPHAGE) 1,000 mg tablet Take 1 tablet by mouth twice daily. levothyroxine (SYNTHROID) 125 mcg tablet Take 1 tablet by mouth once daily. pantoprazole DR (PROTONIX) 20 mg tablet Take 1 tablet by mouth daily before breakfast. Take on empty stomach, 1/2 hr before meal. SITagliptin (JANUVIA) 100 mg tablet Take 1 tablet by mouth once daily. fluticasone (FLOVENT HFA) 110 mcg/actuation inhaler Inhale 1 Puff as instructed twice daily. VIA SPACER THEN RINSE AND GARGLE MOUTH WITH WATER. fexofenadine (CECY ALLERGY) 60 mg tablet Take 1 tablet by mouth twice daily. COMPOUNDED PRESCRIPTION One touch ultra 2, test strips Test 3 times daily. Dx: E11.9 Insulin: No COMPOUNDED PRESCRIPTION Easy Touch Health Pro test strips. To be tested 2 times a day Aspirin 81 mg Tab Take 81 mg by mouth. Cswrdyzmslkti-Zposdpte-Uhzhqq (CENTRUM SILVER) tab Take 1 tablet by mouth once daily. FAMILY HISTORY Adopted: Yes Problem Relation Age of Onset other (unknow) Brother Patient adopted, unsure of family hx. Social History Tobacco Use Smoking status: Never Smokeless tobacco: Never Tobacco comments: Parents did not smoke in childhood home. Spouse smoked in home for about 10 years. Vaping Use Vaping Use: Never used Substance Use Topics Alcohol use: Yes Comment: Rarely. Drug use: No PHYSICAL EXAM BP 140/78 Pulse 82 Temp 36.5 C (97.7 F) (Temporal) Resp 16 Wt 75.3 kg (166 lb) SpO2 99% BMI 28.49 kg/m General Appearance: well appearing, in no acute distress, alert Skin: Skin color, texture, turgor normal for age; Eyes: conjunctiva pink and moist, no icterus, sclera white, non-injected Ears: external ears normal to inspection and palpation, canals clear, Left tympanic membrane normal. , Right tympanic membrane normal Nose/sinus: Nares normal. Septum midline. Mucosa normal. No drainage. Neck: Thyroid normal size and symmetric without palpable nodules, No adenopathy Oropharynx: tongue midline and normal, soft palate, uvula, and tonsils normal, palpation of salivary glands negative Lymph nodes: No cervical lymphadenopathy and No supraclavicular lymphadenopathy Lungs: Lungs clear to auscultation. No wheezing, rhonchi, rales. Heart: RRR without murmur, gallop, or rubs. No ectopy Health maintenance reviewed with patient: DTAP,TDAP,TD(1 - Tdap) due on 03/23/2012 DEPRESSION ASSESSMENT Never done COVID-19 VACCINE(5 - Booster for Moderna series) due on 02/17/2022 DILATED RETINAL EXAM due on 03/08/2022 INFLUENZA(1) due on 05/12/2022 ADVANCE DIRECTIVE DISCUSSION due on 10/26/2022 HBA1C due on 10/16/2022 URINE ALBUMIN:CREATININE RATIO due on 10/18/2022 DIABETIC FOOT EXAM due on 10/22/2022 BP CONTROLLED (<130/80) due on 10/22/2022 LDL CHOLESTEROL due on 04/15/2023 ANNUAL PCP TEAM CHRONIC DISEASE VISIT due on 04/19/2023 BONE DENSITY Completed SHINGRIX VACCINE Completed PNEUMOCOCCAL: 65+ Completed DATA REVIEWED: No new labs ASSESSMENT/PLAN: 1. Acute cough - ICD9: 786.2, ICD10: R05.1 (primary diagnosis) - probable from post nasal drip, but will do chest xray to evaluate further. - continue flonase as prescribed - BENZONATATE 100 MG CAPSULE refilled - XR CHEST 2V FRONTAL/LAT - follow up depending on result. 2. Post-nasal drip - ICD9: 784.91, ICD10: R09.82 As above Prescription instructions reviewed with patient as applicable. Potential red flag symptoms discussed with the patient. Reviewed appropriate action plan to take if red flag symptoms occur. Patient agreeable to treatment plan. Griselda Lema APRN.CNP documented in this encounter [facility] 06-02-2022 Instructions Arsh Davalos APRN.CNP - 06/02/2022 1:04 PM EDT How to Manage Common Symptoms Associated with COVID for Adults Fever- Fever is a temperature over 100.4 F and can occur when the body is fighting an infection. To help treat a fever: Drink plenty of fluids and stay well hydrated. Eat small amounts of easy to digest food. Rest. Your body needs rest to recover, but getting up and moving around the house frequently is a good idea. You should try to continue doing your normal daily activities (bathing, toileting, grooming, cooking), though you will probably feel tired, and need to rest often. Avoid any heavy activity or exercise, as this will increase your body temperature. Dress in light clothing and stay covered in a light sheet. Keep the room temperature cool. Take a slightly warm (not cold or cool) bath, or apply damp washcloths to the forehead and wrists. Cough- Cough is a common symptom associated with COVID and can be bothersome. To help treat a cough: Stay well hydrated. Try warm water or tea with lemon and/or honey to help soothe the cough. Use a humidifier to add moisture to the air. Try a product with menthol, like a cough drop or a rub for your chest such as Vicks, which can help reduce cough. Try cough drops. Avoid smoking and other strong odors or perfumes. Try breathing exercises to keep your lungs open and clear. Take a big deep breath through your nose and hold for 5 seconds before slowly releasing. Repeat frequently, while you are awake. Congestion- Runny nose or nasal congestion can occur with COVID. Treatment can help relieve symptoms: Try OTC nasal saline spray, or nasal saline rinse to relieve mucus congestion. Nasal strips can help keep nasal passages open, to increase airflow. Elevating your head with an extra pillow in bed can help reduce congestion. Using a humidifier can increase moisture in the air, and make breathing easier. Sore Throat- Another common symptom with COVID, can be managed at home by: Stay well hydrated. Gargle with salt water - mix teaspoon salt with 1 cup of warm water and gargle. This helps to loosen mucus in the back of the throat and may reduce discomfort. Try ice chips, popsicles or lozenges to soothe the throat. Nausea/Vomiting/Diarrhea- These are common symptoms, and staying hydrated is most important. If you are nauseous or vomiting, start with small sips of water every 10-15 minutes and increase as tolerated. You can try sucking an ice cube too. If tolerating, you can try pedialyte or Gatorade, or flat sprite or ever-stefano. Start slowly and increase as you are able to. Instead of meals, try smaller, more frequent snacks. Try eating bland foods like crackers, toast, rice, and applesauce. Avoid spicy, greasy or fried foods and dairy containing foods. Even if you aren't feeling hungry due to lack of smell or taste, it is important to try to take in some food when you are able. After drinking and eating, rest in an upright position for up to two hours as needed to help decrease nauseous feelings. Try closing your eyes, avoid moving and watching TV. Avoid strong odors that can make you feel more nauseated. When to seek emergency medical attention Look for emergency warning signs for COVID-19. If having any of these symptoms, seek emergency medical care immediately: Trouble breathing Persistent pain or pressure in the chest New confusion Inability to wake or stay awake Bluish lips or face *This list is not all possible symptoms. Please call your medical provider for any other symptoms that are severe or concerning to you. documented in this encounter [facility] 06-02-2022 History of Presen t illness Narrative Subjective HPI Nontoxic female presents urgent care chief complaint cough congestion. Duration of symptoms 1 week. Associated symptoms cough sinus pressure. Patient states her in [place] she did have a sore throat and chills this is some subsided. No known sick contacts. Denies history of COVID-19 recently. She is vaccinated. Has not used any OTC medications. Denies any significant discomfort. Denies any fever body aches chills productive cough chest pain shortness of breath pleuritic pain hemoptysis nausea vomiting abdominal pain change in bowel or bladder habits past medical history prescription medication use allergies reviewed. 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 PAST SURGICAL HISTORY Procedure Laterality Date APPENDECTOMY 05/1980 BONE DENSITY MULTIPLE SITES 11/2000 BRONCHOSCOPY COLONOSCOPY FLX DX W/COLLJ SPEC WHEN PFRMD 11/28/2003 Colonoscopy COLONOSCOPY FLX DX W/COLLJ SPEC WHEN PFRMD 03/13/14 Colonoscopy PAST SURGICAL HISTORY OF 02/1975 right thyroid lobectomy PAST SURGICAL HISTORY OF Left thigh cellulitis, had surgery to repair, states happened aprox 36 years ago. TOTAL ABDOMINAL HYSTERECT W/WO RMVL TUBE OVARY 05/1980 Hysterectomy, BETTY, partial salpingectomy ALLERGIES Lisinopril and Sulfa (Sulfonamide Antibiotics) MEDICATIONS amLODIPine (NORVASC) 2.5 mg tablet Take 1 tablet by mouth once daily. montelukast (SINGULAIR) 10 mg tablet Take 1 tablet by mouth daily at bedtime. blood sugar diagnostic (BLOOD GLUCOSE TEST) test strip Test blood sugar(s) 1 times daily. Dx: Type 2 DM - Controlled E11.9 Insulin: No glimepiride (AMARYL) 1 mg tablet TAKE 1 TABLET BY MOUTH TWICE DAILY WITH MEALS traZODone (DESYREL) 50 mg tablet TAKE 1 TABLET BY MOUTH DAILY AT BEDTIME simvastatin (ZOCOR) 10 mg tablet TAKE 1 TABLET BY MOUTH ONCE DAILY metFORMIN (GLUCOPHAGE) 1,000 mg tablet Take 1 tablet by mouth twice daily. levothyroxine (SYNTHROID) 125 mcg tablet Take 1 tablet by mouth once daily. pantoprazole DR (PROTONIX) 20 mg tablet Take 1 tablet by mouth daily before breakfast. Take on empty stomach, 1/2 hr before meal. SITagliptin (JANUVIA) 100 mg tablet Take 1 tablet by mouth once daily. fluticasone (FLOVENT HFA) 110 mcg/actuation inhaler Inhale 1 Puff as instructed twice daily. VIA SPACER THEN RINSE AND GARGLE MOUTH WITH WATER. fexofenadine (CECY ALLERGY) 60 mg tablet Take 1 tablet by mouth twice daily. COMPOUNDED PRESCRIPTION One touch ultra 2, test strips Test 3 times daily. Dx: E11.9 Insulin: No COMPOUNDED PRESCRIPTION Easy Touch Health Pro test strips. To be tested 2 times a day Aspirin 81 mg Tab Take 81 mg by mouth. Qsttaqbdenvnl-Symitwsu-Gpcplp (CENTRUM SILVER) tab Take 1 tablet by mouth once daily. FAMILY HISTORY Adopted: Yes Problem Relation Age of Onset other (unknow) Brother Patient adopted, unsure of family hx. Social History Tobacco Use Smoking status: Never Smokeless tobacco: Never Tobacco comments: Parents did not smoke in childhood home. Spouse smoked in home for about 10 years. Vaping Use Vaping Use: Never used Substance Use Topics Alcohol use: Yes Comment: Rarely. Drug use: No BP 148/78 Pulse 85 Temp 36.5 C (97.7 F) Resp 21 Wt 75.6 kg (166 lb 9.6 oz) SpO2 98% BMI 28.60 kg/m Resp 16 Review of Systems Constitutional: Negative for chills, fever and malaise/fatigue. HENT: Positive for congestion and sinus pain. Negative for ear discharge, ear pain and sore throat. Eyes: Negative for blurred vision, pain, discharge and redness. Respiratory: Positive for cough. Negative for hemoptysis, sputum production, shortness of breath, wheezing and stridor. Cardiovascular: Negative for chest pain. Gastrointestinal: Negative for abdominal pain, diarrhea, nausea and vomiting. Musculoskeletal: Negative for myalgias. Skin: Negative for itching and rash. Neurological: Negative for dizziness and headaches. Objective Physical Exam Constitutional: General: She is not in acute distress. Appearance: She is not diaphoretic. HENT: Head: Normocephalic. Nose: Congestion present. Mouth/Throat: Mouth: Mucous membranes are moist. Pharynx: Oropharynx is clear. No oropharyngeal exudate or posterior oropharyngeal erythema. Eyes: Conjunctiva/sclera: Conjunctivae normal. Pupils: Pupils are equal, round, and reactive to light. Cardiovascular: Rate and Rhythm: Normal rate and regular rhythm. Heart sounds: Normal heart sounds. Pulmonary: Effort: Pulmonary effort is normal. No tachypnea, accessory muscle usage or respiratory distress. Breath sounds: Normal breath sounds. No stridor. No wheezing, rhonchi or rales. Abdominal: Palpations: Abdomen is soft. Tenderness: There is no abdominal tenderness. Musculoskeletal: Cervical back: Normal range of motion and neck supple. No rigidity or tenderness. Lymphadenopathy: Cervical: No cervical adenopathy. Skin: General: Skin is warm and dry. Neurological: Mental Status: She is alert and oriented to person, place, and time. ASSESSMENT/PLAN: 1. Suspected COVID-19 virus infection - ICD9: V01.79, ICD10: Z20.822 (primary diagnosis) - COVID WITH FLUA+B, ROUTINE 2. Sinobronchitis - ICD9: 473.9, 490, ICD10: J32.9, J40 Patient diagnosed with sinobronchitis. Will test for COVID-19 as well. We placed on doxycycline. Patient was educated on supportive therapies. Patient will follow up with primary care provider as needed. Patient was instructed to immediately proceed to emergency room for any new, worsening, or symptoms lasting longer than anticipated. The patient's clinical presentation is otherwise unremarkable at this time. Based on exam and clinical finding, the patient is stable for discharge. Plan of care was discussed with patient. Patient verbalizes understanding and agrees to plan of care. This note was generated using [employer] software. It may contain errors in wording, punctuation, or spelling. Arsh Davalos APRN.OLESYA documented in this encounter [facility] 05-09-2022 History of Presen t illness Narrative . Respiratory Independence Note Patient name: Shannon Leija PCP: Darin Alonzo MD CC: Cough HPI: Shannon Leija 81 year old female never smoker with PMH significant for BALT, HTN, DM2, post nasal drip, hypothyroidism, GERD, HLD former patient of Dr. Giordano. 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 Repeat bronchoscopy in 2018 showed persistent bronchial inflammation and negative cultures. Pulmonary symptoms mainly consist of dry cough. No significant dyspnea on exertion, wheezing or chest tightness. She does not use her Flovent on a daily basis. She was doing well until February when she was admitted to [facility] hospital with hypertensive urgency. No stroke. Started on Lisinopril which worsened her cough. Cough was severe, persistent, interfered with sleep. Therapy changed to amlodipine. Improvement in her cough but not complete resolution. Recently started on Singulair for postnasal drip and allergies. Cough improved. DATA: PFT 10/2021: Review of spirometry shows no obstruction Labs: RF, CCP, anti CORNELIUS, immunoglobulins normal Imaging / Diagnostic Studies: DATE OF EXAM: Mar 21 2022 6:55PM WOX [id number] - XR CHEST 2V FRONTAL/LAT / PROCEDURE REASON: Acute cough EXAMINATION: CHEST RADIOGRAPH (2 VIEW FRONTAL & LATERAL) CLINICAL HISTORY: Acute cough MQ: [id number] EXAM DATE/TIME: 03/21/2022 6:55 PM COMPARISON: Comparison is made to prior 2 view chest dated 11/05/2018, 29 September 2017 and 11/28/2014 RESULT: Lines, tubes, and devices: None. Lungs and pleura: Calcified residual of prior granulomatous infection as well as chronic interstitial lung changes with lingular and bibasilar fibrotic scarring is stable. There is no focal consolidation or acute pleural process/fluid. There is no vascular redistribution to suggest pulmonary edema. Cardiomediastinal silhouette: Normal cardiomediastinal silhouette. Bones/soft tissues: The bony structures are intact with mild degenerative change. No bony destructive process noted. IMPRESSION: Stable chronic interstitial changes. No superimposed acute radiographic abnormality. I personally reviewed the images which show lower lobe increased interstitial markings DATE OF EXAM: Sep 29 2010 10:04AM [facility] [id number] - CT CHEST WO CONTRAST / RESULT: EXAMINATION: Noncontrast CT scans of the chest. HISTORY: History of cough and interstitial lung disease. Although initially ordered as a contrast enhanced study, this would limit evaluation of high-resolution pulmonary images which appears to be the primary reason for the study, thus high-resolution noncontrast scans were obtained. RESULTS: High-resolution algorithm noncontrast scans were obtained through the thorax at 1 mm intervals on and slice thickness showing prominent intralobular septal thickening and small interstitial nodularity bilaterally, particularly in the lower lobes, where there is some ground glass infiltrate posteriorly at each base, left greater than right. There is no significant septal nodularity. There is an ill-defined 9 mm nodule in the right upper lobe at sp 97.5, and a sharply defined 5 mm nodule in the left lower lobe at sp 209.5 which would require follow up. There is no bronchiectatic change. There is no axillary, mediastinal or hilar adenopathy. Calcified granulomas are seen in the left hilum. The cardiac size normal with no pericardial effusion. There is some calcification in the left coronary artery. There are calcified granulomas seen anteriorly and medially in the left lower lobe. There is limited visualization of the upper abdomen in this noncontrast CT study of the chest. The adrenals are normal. Small gallstones are seen within a nondistended gallbladder. IMPRESSION: There is evidence of nonspecific interstitial lung disease with some septal thickening and nodularity noted. There are ground glass infiltrates at both bases, left greater than right, probably due to the interstitial lung disease. There are a couple of other larger parenchymal nodules, one in the right upper lobe and one at the left lower lobe, for which follow-up study in 8 to 12 months is recommended. There is evidence of old granulomatous disease. Gallstones are noted. 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 ALLERGIES Allergen Reactions Lisinopril Cough Sulfa (Sulfonamide * Rash Childhood reaction. amLODIPine (NORVASC) 2.5 mg tablet Take 1 tablet by mouth once daily. montelukast (SINGULAIR) 10 mg tablet Take 1 tablet by mouth daily at bedtime. glimepiride (AMARYL) 1 mg tablet TAKE 1 TABLET BY MOUTH TWICE DAILY WITH MEALS traZODone (DESYREL) 50 mg tablet TAKE 1 TABLET BY MOUTH DAILY AT BEDTIME simvastatin (ZOCOR) 10 mg tablet TAKE 1 TABLET BY MOUTH ONCE DAILY metFORMIN (GLUCOPHAGE) 1,000 mg tablet Take 1 tablet by mouth twice daily. levothyroxine (SYNTHROID) 125 mcg tablet Take 1 tablet by mouth once daily. pantoprazole DR (PROTONIX) 20 mg tablet Take 1 tablet by mouth daily before breakfast. Take on empty stomach, 1/2 hr before meal. SITagliptin (JANUVIA) 100 mg tablet Take 1 tablet by mouth once daily. fluticasone (FLOVENT HFA) 110 mcg/actuation inhaler Inhale 1 Puff as instructed twice daily. VIA SPACER THEN RINSE AND GARGLE MOUTH WITH WATER. fexofenadine (CECY ALLERGY) 60 mg tablet Take 1 tablet by mouth twice daily. Aspirin 81 mg Tab Take 81 mg by mouth. blood sugar diagnostic (BLOOD GLUCOSE TEST) test strip Test blood sugar(s) 1 times daily. Dx: Type 2 DM - Controlled E11.9 Insulin: No COMPOUNDED PRESCRIPTION One touch ultra 2, test strips Test 3 times daily. Dx: E11.9 Insulin: No COMPOUNDED PRESCRIPTION Easy Touch Health Pro test strips. To be tested 2 times a day Zlwbhjhwvlyio-Pichncdh-Aicoav (CENTRUM SILVER) ORAL Tab Take 1 tablet by mouth once daily. Social History Tobacco Use Smoking status: Never Smokeless tobacco: Never Tobacco comments: Parents did not smoke in childhood home. Spouse smoked in home for about 10 years. Vaping Use Vaping Use: Never used Substance Use Topics Alcohol use: Yes Comment: Rarely. Drug use: No Pets: none FAMILY HISTORY Adopted: Yes Problem Relation Age of Onset other (unknow) Brother Patient adopted, unsure of family hx. PAST SURGICAL HISTORY Procedure Laterality Date APPENDECTOMY 05/1980 BONE DENSITY MULTIPLE SITES 11/2000 BRONCHOSCOPY COLONOSCOPY FLX DX W/COLLJ SPEC WHEN PFRMD 11/28/2003 Colonoscopy COLONOSCOPY FLX DX W/COLLJ SPEC WHEN PFRMD 03/13/14 Colonoscopy PAST SURGICAL HISTORY OF 02/1975 right thyroid lobectomy PAST SURGICAL HISTORY OF Left thigh cellulitis, had surgery to repair, states happened aprox 36 years ago. TOTAL ABDOMINAL HYSTERECT W/WO RMVL TUBE OVARY 05/1980 Hysterectomy, BETTY, partial salpingectomy PMH, Social history, family history and surgical history reviewed and updated in EMR REVIEW OF SYSTEMS: CONSTITUTIONAL: No fevers, chills, nightsweats, unintended weight loss HEENT: Positive nasal congestion/sinus symptoms, post nasal drip with cough and throat clearing CARDIOVASCULAR: No chest pain, dyspnea, palpitations, edema. PULM: See HPI GI: No dysphagia/odynophagia, problematic reflux. MUSC-SKEL: No new joint pain, swelling, or erythema. INTEGUMENTARY: No new skin changes or rashes PHYSICAL EXAMINATION: Wt 162 lb (73.5kg) BP 138/72, P 57, RR 17, 98% on RA General Appearance: Elderly female, NAD Skin: Skin color, texture, turgor normal, no suspicious rashes or lesions. Head: Normocephalic, no masses, lesions, tenderness or abnormalities. Eyes: Sclera, conjunctiva normal Oropharynx: No oral lesions or thrush or telangiectasias Neck: No JVD, no masses, no adenopathy Lungs: Not labored, normal to percussion, no wheezes or crackles Heart: Regular rate and rhythm, soft systolic murmur right upper sternal border, no gallops Extremities: No edema, clubbing, sclerodactyly Assessment/Plan: 1. Follicular bronchiolitis/BALT -Clinically stable. No evidence of autoimmune disorder -Recommend regular use of Flovent inhaler -Spirometry and CXR at next visit 2. Postnasal drip -Will continue Cecy -Hold Singulair for nowl If cough recurs may need to restart 3. GERD -Symptoms controlled with PPI -Conservative anti-reflux measures Pamela Aranda MD [facility] documented in this encounter [facility] 04-22-2022 Miscellaneous Notes Patient calls and is asking if amlodipine can be sent to mail pharmacy for a 90 day supply with 3 refills? Order pended if agreeable. Sarina Bobby RN documented in this encounter [facility] 04-21-2022 Miscellaneous Notes Pt called and is notified of providers message. Pt voices understanding. Aliyah Clemens RN Prescription has been sent for new dosage. Thank you Griselda Lema APRN.OLESYA Natalie from [facility] pharmacy calling the Codeine-guaifenesin rx Dr Alonzo sent in for her is on manufacture back order. Asking for another rx to replace. They have Robitussin AC 10:100 per 5 ml in stock. Please send another rx patient has already been in to [facility], knows about the issue, PCP is out this afternoon. Pending Robitussin rx if wanted needs completed. Please advise documented in this encounter [facility] 04-19-2022 Miscellaneous Notes Addended by: DARIN ALONZO on: 04/19/2022 05:00 PM Modules accepted: Orders documented in this encounter [facility] 04-19-2022 History of Presen t illness Narrative Reason for Visit Patient presents with: F/U 6 months: and cough issue since March Shannon Leija is a 81 year old female who presents here today for Above Complaints.. Health Maintenance DTAP,TDAP,TD(1 - Tdap) DILATED RETINAL EXAM HPI Cough: she gets drainage down her throat and it sets her coughing, she is on cecy, and ppi. We had taken her off the lisinopril and put on her amlodopine. The cough still remains. It dry hacking cough, not related to food or drink, it is the same every single day. Is taking sugar free cough drops. She wakes up and stops coughing several time, this cough is wearing her out. No swelling in the legs. Cough is relentless. She never goes anywhere without her cough drops. Will try her on singulair and give her codeine as needed for night time Diabetes Mellitus: patients hba1c is 6.8. she says It is possible patient did not eat anything much that day. No problem-specific Assessment & Plan notes found for this encounter. 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 PAST SURGICAL HISTORY Procedure Laterality Date APPENDECTOMY 05/1980 BONE DENSITY MULTIPLE SITES 11/2000 BRONCHOSCOPY COLONOSCOPY FLX DX W/COLLJ SPEC WHEN PFRMD 11/28/2003 Colonoscopy COLONOSCOPY FLX DX W/COLLJ SPEC WHEN PFRMD 03/13/14 Colonoscopy PAST SURGICAL HISTORY OF 02/1975 right thyroid lobectomy PAST SURGICAL HISTORY OF Left thigh cellulitis, had surgery to repair, states happened aprox 36 years ago. TOTAL ABDOMINAL HYSTERECT W/WO RMVL TUBE OVARY 05/1980 Hysterectomy, BETTY, partial salpingectomy FAMILY HISTORY Adopted: Yes Problem Relation Age of Onset other (unknow) Brother Patient adopted, unsure of family hx. Social History Tobacco Use Smoking status: Never Smokeless tobacco: Never Tobacco comments: Parents did not smoke in childhood home. Spouse smoked in home for about 10 years. Vaping Use Vaping Use: Never used Substance Use Topics Alcohol use: Yes Comment: Rarely. Drug use: No Past medical history, appointments, medications, allergies reviewed. Pertinent Lab/Diagnostic Studies are reviewed and discussed today Current Outpatient Medications: simvastatin (ZOCOR) 10 mg tablet amLODIPine (NORVASC) 2.5 mg tablet blood sugar diagnostic (BLOOD GLUCOSE TEST) test strip glimepiride (AMARYL) 1 mg tablet traZODone (DESYREL) 50 mg tablet metFORMIN (GLUCOPHAGE) 1,000 mg tablet levothyroxine (SYNTHROID) [address] (PROTONIX) 20 mg tablet SITagliptin (JANUVIA) 100 mg tablet fluticasone (FLOVENT HFA) 110 mcg/actuation inhaler fexofenadine (CEYC ALLERGY) 60 mg tablet COMPOUNDED PRESCRIPTION COMPOUNDED PRESCRIPTION Aspirin 81 mg Tab Ltmzpjsnnlcpt-Rbtasvhr-Lgvbjc (CENTRUM SILVER) ORAL Tab Review of Systems CONSTITUTIONAL: No fevers, chills night sweats, unintended weight loss CARDIOVASCULAR: No chest pain, dyspnea, palpitations, orthopnea, PND, ankle edema. PULM: No dyspnea, unexplained cough. GI: No dysphagia/odynophagia, problematic reflux, constipation, diarrhea, changes in stool habits, hematochezia, melena. : No new urinary complaints, including dysuria, gross hematuria or pyuria. NEURO: No new balance problems, peripheral weakness/paresthesias or numbness of concern. Physical Exam BP 140/68 (BP Site: Left Arm, BP Position: Sitting, BP Cuff Size: Large Adult) Pulse 80 Temp 36.6 C (97.8 F) Resp 12 Ht 162.6 cm (5' 4) Wt 74.4 kg (164 lb) SpO2 99% BMI 28.15 kg/m General appearance: Well appearing, alert, in no acute distress, well nourished. Skin: Skin color, texture, turgor normal, no suspicious rashes or lesions Head: Normocephalic, no masses, lesions, tenderness or abnormalities Eyes: Anicteric sclera. Pupils are equally round and reactive to light. Extraocular movements are intact. Lungs: Lungs clear to auscultation. No wheezing, rhonchi, rales Heart: RRR without murmur, gallop, or rubs. Extremities: No deformities, edema, skin discoloration, clubbing or cyanosis. Good capillary refill. ASSESSMENT/PLAN: 1. Chronic cough - ICD9: 786.2, ICD10: R05.3 (primary diagnosis) Hoping she will get some rest at least at night time. - MONTELUKAST 10 MG TABLET - CODEINE 6.3 MG-GUAIFENESIN 100 MG/5 ML ORAL LIQUID 2. Controlled type 2 diabetes mellitus without complication, unspecified whether fdc insulin use (HCC) - ICD9: 250.00, ICD10: E11.9 The patient has controlled diabetes mellitus, recently got it under control she is very proud of her self 3. Essential hypertension - ICD9: 401.9, ICD10: I10 Bp is well controlled. 4. Hyperlipidemia, unspecified hyperlipidemia type - ICD9: 272.4, ICD10: E78.5 Cont the statin medication. Darin Alonzo MD documented in this encounter [facility] 04-14-2022 Miscellaneous Notes Noted. Griselda Lema APRN.CNP Protocol recommends see provider in 2 weeks. Scheduled appt. Reason for Disposition Cough lasts > 3 weeks Answer Assessment - Initial Assessment Questions 1. ONSET Beginning of March. Thought it was lisinopril and it was changed to amlodipine, but still coughing. 2. SEVERITY: Comes and goes. Interferes with sleep. 3. SPUTUM: Dry cough. Sinus drainage. 4. HEMOPTYSIS: No. 5. DIFFICULTY BREATHING: No SOB 6. FEVER: No 7. CARDIAC HISTORY: No heart hx. 8. LUNG HISTORY: No asthma or emphysema. Never had a blood clot. 9. PE RISK FACTORS: No 10. OTHER SYMPTOMS: Sinus drainage. Takes cecy daily. Gets sore throat from coughing. 11. : N/A. 12. TRAVEL: No travel. No exposures. Protocols used: COUGH - [id number] documented in this encounter [facility] 04-11-2022 Miscellaneous Notes Patient has been identified by name and date of : Yes Patient phones for refill(s): Pending Prescriptions Disp Refills AMLODIPINE 2.5 MG TABLET 30 tablet 1 Sig: TAKE 1 TABLET BY MOUTH EVERY DAY LOPEZ: Yes Date of last office visit in primary care: 03/21/22 Last 2 Encounter Wt Readings: Date: Wt: 03/21/2022 73.9 kg (163 lb) 03/10/2022 76.1 kg (167 lb 12.8 oz) Previous labs/tests for medication: Blood Pressure: BUN (mg/dL) Date Value 12/20/2021 16 07/09/2021 19 Sodium (mmol/L) Date Value 12/20/2021 139 07/09/2021 137 Last 1 Encounter BP Readings: Date: BP: 03/21/2022 126/72 Please advise. Thank you. Kathia Swanson LPN documented in this encounter [facility] 03-23-2022 Miscellaneous Notes Patient returned call and given provider's message below and patient verbalized understanding. Branden Lopez RN Left message for return call. ----- Message from Darin Alonzo MD sent at 03/22/2022 7:13 PM EDT ----- Xray does not show any pneumonia or other issues, it was essentially normal , Some chronic changes was seen we will discuss that in the next visit, documented in this encounter [facility] 03-21-2022 History of Presen t illness Narrative Reason for Visit Patient presents with: Established Patient: [facility] hospital follow up-dizziness/nausea Shannon Leija is a 81 year old female who presents here today for Above Complaints Health Maintenance DILATED RETINAL EXAM HPI 11 days ago patient was admitted at [facility]. She was taken to the ER first and evaluated for vertigo. She notes while she was driving after having lunch with her in the car she suddenly had vertigo when she turns on either sides of her head. She had to stop the car on the side and feels better before she started driving. She is not sure how she started driving back and how she got home because she was very dizzy. The only thing that helped her with the dizziness was closing her eyes which is very hard to do when she was driving. She went to the urgent care and from there was immediately sent to the ER. In the hospital they did CT scan and call the stroke team. She was immediately rushed to have the CT scan. Following that she was then sent for carotid vessels check. There is noted calcific plaque at the proximal right internal carotid artery with less than 50% stenosis in less than 50% stenosis of the right external carotid artery. She also had less than 50% stenosis in the left external carotid and patent antegrade and retrograde flow in vertebral arteries bilaterally. Since being discharged from the hospital she has been having a cough. She was started on lisinopril in the hospital because blood pressure slightly high so that was changed amlodipine and she is having some dizziness and despite stopping the lisinopril after 6 days of use and stopping it for 4 days she still having cough. No problem-specific Assessment & Plan notes found for this encounter. 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 PAST SURGICAL HISTORY Procedure Laterality Date APPENDECTOMY 05/1980 BONE DENSITY MULTIPLE SITES 11/2000 BRONCHOSCOPY COLONOSCOPY FLX DX W/COLLJ SPEC WHEN PFRMD 11/28/2003 Colonoscopy COLONOSCOPY FLX DX W/COLLJ SPEC WHEN PFRMD 03/13/14 Colonoscopy PAST SURGICAL HISTORY OF 02/1975 right thyroid lobectomy PAST SURGICAL HISTORY OF Left thigh cellulitis, had surgery to repair, states happened aprox 36 years ago. TOTAL ABDOMINAL HYSTERECT W/WO RMVL TUBE OVARY 05/1980 Hysterectomy, BETTY, partial salpingectomy FAMILY HISTORY Adopted: Yes Problem Relation Age of Onset other (unknow) Brother Patient adopted, unsure of family hx. Social History Tobacco Use Smoking status: Never Smoker Smokeless tobacco: Never Used Tobacco comment: Parents did not smoke in childhood home. Spouse smoked in home for about 10 years. Vaping Use Vaping Use: Never used Substance Use Topics Alcohol use: Yes Comment: Rarely. Drug use: No Past medical history, appointments, medications, allergies reviewed. Pertinent Lab/Diagnostic Studies are reviewed and discussed today Current Outpatient Medications: simvastatin (ZOCOR) 10 mg tablet azithromycin (ZITHROMAX Z-CHEYANNE) 250 mg tablet amLODIPine (NORVASC) 2.5 mg tablet blood sugar diagnostic (BLOOD GLUCOSE TEST) test strip glimepiride (AMARYL) 1 mg tablet traZODone (DESYREL) 50 mg tablet metFORMIN (GLUCOPHAGE) 1,000 mg tablet levothyroxine (SYNTHROID) [address] (PROTONIX) 20 mg tablet SITagliptin (JANUVIA) 100 mg tablet fluticasone (FLOVENT HFA) 110 mcg/actuation inhaler fexofenadine (CECY ALLERGY) 60 mg tablet COMPOUNDED PRESCRIPTION COMPOUNDED PRESCRIPTION Aspirin 81 mg Tab Zcgslhyhoxahr-Jfihpulh-Opvxpg (CENTRUM SILVER) ORAL Tab Review of Systems CONSTITUTIONAL: No fevers, chills night sweats, unintended weight loss CARDIOVASCULAR: No chest pain, dyspnea, palpitations, orthopnea, PND, ankle edema. PULM: No dyspnea, unexplained cough. GI: No dysphagia/odynophagia, problematic reflux, constipation, diarrhea, changes in stool habits, hematochezia, melena. : No new urinary complaints, including dysuria, gross hematuria or pyuria. NEURO: No new balance problems, peripheral weakness/paresthesias or numbness of concern. Physical Exam BP 126/72 (BP Site: Left Arm, BP Position: Sitting, BP Cuff Size: Large Adult) Pulse 76 Temp 36.8 C (98.3 F) Resp 12 Ht 162.6 cm (5' 4) Wt 73.9 kg (163 lb) SpO2 97% BMI 27.98 kg/m General appearance: Well appearing, alert, in no acute distress, well nourished. Skin: Skin color, texture, turgor normal, no suspicious rashes or lesions Head: Normocephalic, no masses, lesions, tenderness or abnormalities Eyes: Anicteric sclera. Pupils are equally round and reactive to light. Extraocular movements are intact. Lungs: Lungs clear to auscultation. Rales present on b/l basilar lung areas Heart: RRR without murmur, gallop, or rubs. Extremities: No deformities, edema, skin discoloration, clubbing or cyanosis. Good capillary refill. ASSESSMENT/PLAN: 1. Acute cough - ICD9: 786.2, ICD10: R05.1 (primary diagnosis) This looks like a viral cough, if her sputum changes color then she can take the azithromycin. - XR CHEST 2V FRONTAL/LAT - COVID WITH FLUA+B, ROUTINE 2. Controlled type 2 diabetes mellitus without complication, without long-term current use of insulin (HCC) - ICD9: 250.00, ICD10: E11.9 - HGB A1C - COMP METABOLIC PANEL - CBC - TSH BLD - LIPID PANEL BASIC 3. Hospital discharge follow-up - ICD9: V67.59, ICD10: Z09 currently no follow up for her vertigo which I think is likely to be from her bppv and may not be related to a stroke. 4. Vertigo - ICD9: 780.4, ICD10: R42 ? bbpv. Darin Alonzo MD documented in this encounter [facility] 03-18-2022 Miscellaneous Notes Patient notified. I sent in an order for amlodipine to take instead of lisinopril. Number one side effect is edema so please let us know if this occurs. This will be re-evaluated at her appointment with Dr. Alonzo. Thank you Griselda Lema APRN.OLESYA Asking if ok to stop medication for a couple of days to see if the cough will stop. Patient calling back to check on status of question. Patient is holding medication until she hears back. Patient calls and states that she was in hospital last week with severe dizziness and vertigo. Patient was started on lisinopril. Patient's blood pressure this morning 124/71. A vascular appointment this morning it was 173/97 sitting then standing it was 158/80. Patient states that she still is a little bit dizzy. Patient also states that since starting lisinopril she has had a cough. Patient has hospital follow up with provider on Monday03/21/2022. Please review and advise, Sarina Bobby RN documented in this encounter [facility] 03-15-2022 Miscellaneous Notes Patient has been identified by name and date of : Yes Patient phones for refill(s): Pending Prescriptions Disp Refills BLOOD GLUCOSE TEST STRIPS 100 Strip 3 Sig: Test blood sugar(s) 1 times daily. Dx: Type 2 DM - Controlled E11.9 Insulin: No LOPEZ: No Date of last office visit with pcp: 10-22-21. Next appt: 03-21-22 Last 2 Encounter Wt Readings: Date: Wt: 03/10/2022 76.1 kg (167 lb 12.8 oz) 11/08/2021 75.3 kg (166 lb) Previous labs/tests for medication: Diabetes: Hemoglobin A1C (%) Date Value 10/18/2021 6.8 07/09/2021 8.0 Please advise. Thank you. Jean Kaba RN documented in this encounter [facility] 03-10-2022 History of Presen t illness Narrative Patient presents with: Headache: SARAH, nausea dn dizzy x 1 hour HPI: Patient was driving about an hour ago and had acute onset of dizziness. She has an allover headache and feels nauseated. Closing her eyes helps reduce symptoms. She denies other symptoms. Denies chest pain, shortness of breath, weakness, numbness, vision change, fever. MEDICATIONS: simvastatin (ZOCOR) 10 mg tablet TAKE 1 TABLET BY MOUTH ONCE DAILY glimepiride (AMARYL) 1 mg tablet TAKE 1 TABLET BY MOUTH TWICE DAILY WITH MEALS traZODone (DESYREL) 50 mg tablet TAKE 1 TABLET BY MOUTH DAILY AT BEDTIME metFORMIN (GLUCOPHAGE) 1,000 mg tablet Take 1 tablet by mouth twice daily. levothyroxine (SYNTHROID) 125 mcg tablet Take 1 tablet by mouth once daily. pantoprazole DR (PROTONIX) 20 mg tablet Take 1 tablet by mouth daily before breakfast. Take on empty stomach, 1/2 hr before meal. SITagliptin (JANUVIA) 100 mg tablet Take 1 tablet by mouth once daily. blood sugar diagnostic (BLOOD GLUCOSE TEST) test strip Test blood sugar(s) 1 times daily. Dx: Type 2 DM - Controlled E11.9 Insulin: No fluticasone (FLOVENT HFA) 110 mcg/actuation inhaler Inhale 1 Puff as instructed twice daily. VIA SPACER THEN RINSE AND GARGLE MOUTH WITH WATER. fexofenadine (CECY ALLERGY) 60 mg tablet Take 1 tablet by mouth twice daily. COMPOUNDED PRESCRIPTION One touch ultra 2, test strips Test 3 times daily. Dx: E11.9 Insulin: No COMPOUNDED PRESCRIPTION Easy Touch Health Pro test strips.To be tested 2 times a day Aspirin 81 mg Tab Take 81 mg by mouth. Vqsfwfehmzzgw-Zyddunfx-Qnxbpb (CENTRUM SILVER) ORAL Tab Take 1 tablet by mouth once daily. ALLERGIES: ALLERGIES Allergen Reactions Sulfa (Sulfonamide * Rash Childhood reaction. VITALS: BP 182/106 Pulse 77 Temp 36.1 C (97 F) (Tympanic) Resp 18 Wt 76.1 kg (167 lb 12.8 oz) SpO2 98% BMI 28.80 kg/m PHYSICAL EXAM: GEN: alert, anxious HEENT: Pupils 2mm equal and round, EOMI, MMM NECK: supple, HEART: regular rate, regular rhythm, LUNGS: clear to auscultation, no wheezes or crackles, no increased WOB NEURO: Alert and oriented to person, place, and time. CN II-XII intact. Able to transition from seat to wheelchair. No tremor. ASSESSMENT/PLAN: 1. Dizziness - ICD9: 780.4, ICD10: R42 (primary diagnosis) 2. Headache, unspecified headache type - ICD9: 784.0, ICD10: R51.9 3. Nausea - ICD9: 787.02, ICD10: R11.0 Dizziness, headache, and elevated blood pressure. No past history of vertigo. Concern for stroke. Patient's neighbor will drive her to the ER. Report called to [facility]. Nakul Patino MD documented in this encounter [facility] 12-10-2021 Miscellaneous Notes Patient has been identified by name and date of : Yes Patient phones for refill(s): Pending Prescriptions Disp Refills METFORMIN 1,000 MG TABLET 180 tablet 3 Sig: Take 1 tablet by mouth twice daily. LOPEZ: No Date of last office visit in primary care: 10/22/2021, has appt 04/22/2022 Last 2 Encounter Wt Readings: Date: Wt: 11/08/2021 75.3 kg (166 lb) 11/08/2021 75.3 kg (166 lb) Previous labs/tests for medication: Diabetes: Hemoglobin A1C (%) Date Value 10/18/2021 6.8 07/09/2021 8.0 Please advise. Thank you. Sarina Gomez LPN documented in this encounter [facility] 08-11-2014 History of Past i llness Narrative Problem Noted Date Resolved Date DM (diabetes mellitus) 08/11/2014 6 Steele angioma 04/17/2013 02/16/2015 Capillary angioma 04/17/2013 02/16/2015 Solar lentigo 04/17/2013 02/16/2015 Actinic skin damage 04/17/2013 02/16/2015 Telangiectasia 04/17/2013 02/16/2015 Cutaneous skin tags 04/17/2013 02/16/2015 OVERWEIGHT 07/04/2005 02/16/2015 DIABETES MELLITUS TYPE II-UNCOMPL 07/04/2005 02/16/2015 Other and unspecified hyperlipidemia 07/04/2005 01/04/2016 Cough 07/04/2005 02/16/2015 Overview: chronic documented as of this encounter (statuses as of 12/10/2021) [facility] History of Past illness Narrative* Problem Noted Date Resolved Date DM (diabetes mellitus) 08/11/2014 6 Steele angioma 04/17/2013 02/16/2015 Capillary angioma 04/17/2013 02/16/2015 Solar lentigo 04/17/2013 02/16/2015 Actinic skin damage 04/17/2013 02/16/2015 Telangiectasia 04/17/2013 02/16/2015 Cutaneous skin tags 04/17/2013 02/16/2015 OVERWEIGHT 07/04/2005 02/16/2015 DIABETES MELLITUS TYPE II-UNCOMPL 07/04/2005 02/16/2015 Other and unspecified hyperlipidemia 07/04/2005 01/04/2016 Cough 07/04/2005 02/16/2015 Overview: chronic documented as of this encounter (statuses as of 03/10/2022) [facility] History of Past illness Narrative* Problem Noted Date Resolved Date DM (diabetes mellitus) 08/11/2014 6 Steele angioma 04/17/2013 02/16/2015 Capillary angioma 04/17/2013 02/16/2015 Solar lentigo 04/17/2013 02/16/2015 Actinic skin damage 04/17/2013 02/16/2015 Telangiectasia 04/17/2013 02/16/2015 Cutaneous skin tags 04/17/2013 02/16/2015 OVERWEIGHT 07/04/2005 02/16/2015 DIABETES MELLITUS TYPE II-UNCOMPL 07/04/2005 02/16/2015 Other and unspecified hyperlipidemia 07/04/2005 01/04/2016 Cough 07/04/2005 02/16/2015 Overview: chronic documented as of this encounter (statuses as of 03/18/2022) [facility] History of Past illness Narrative* Problem Noted Date Resolved Date DM (diabetes mellitus) 08/11/2014 6 Steele angioma 04/17/2013 02/16/2015 Capillary angioma 04/17/2013 02/16/2015 Solar lentigo 04/17/2013 02/16/2015 Actinic skin damage 04/17/2013 02/16/2015 Telangiectasia 04/17/2013 02/16/2015 Cutaneous skin tags 04/17/2013 02/16/2015 OVERWEIGHT 07/04/2005 02/16/2015 DIABETES MELLITUS TYPE II-UNCOMPL 07/04/2005 02/16/2015 Other and unspecified hyperlipidemia 07/04/2005 01/04/2016 Cough 07/04/2005 02/16/2015 Overview: chronic documented as of this encounter (statuses as of 03/21/2022) [facility]12-01[facility]2014 History of Past illness Narrative* Problem Noted Date Resolved Date DM (diabetes mellitus) 08/11/2014 6 Steele angioma 04/17/2013 02/16/2015 Capillary angioma 04/17/2013 02/16/2015 Solar lentigo 04/17/2013 02/16/2015 Actinic skin damage 04/17/2013 02/16/2015 Telangiectasia 04/17/2013 02/16/2015 Cutaneous skin tags 04/17/2013 02/16/2015 OVERWEIGHT 07/04/2005 02/16/2015 DIABETES MELLITUS TYPE II-UNCOMPL 07/04/2005 02/16/2015 Other and unspecified hyperlipidemia 07/04/2005 01/04/2016 Cough 07/04/2005 02/16/2015 Overview: chronic documented as of this encounter (statuses as of 03/23/2022) [facility]12-01-2014 History of Past illness Narrative* Problem Noted Date Resolved Date DM (diabetes mellitus) 08/11/2014 6 Steele angioma 04/17/2013 02/16/2015 Capillary angioma 04/17/2013 02/16/2015 Solar lentigo 04/17/2013 02/16/2015 Actinic skin damage 04/17/2013 02/16/2015 Telangiectasia 04/17/2013 02/16/2015 Cutaneous skin tags 04/17/2013 02/16/2015 OVERWEIGHT 07/04/2005 02/16/2015 DIABETES MELLITUS TYPE II-UNCOMPL 07/04/2005 02/16/2015 Other and unspecified hyperlipidemia 07/04/2005 01/04/2016 Cough 07/04/2005 02/16/2015 Overview: chronic documented as of this encounter (statuses as of 04/11/2022) [facility]12[facility]2014 History of Past illness Narrative* Problem Noted Date Resolved Date DM (diabetes mellitus) 08/11/2014 6 Steele angioma 04/17/2013 02/16/2015 Capillary angioma 04/17/2013 02/16/2015 Solar lentigo 04/17/2013 02/16/2015 Actinic skin damage 04/17/2013 02/16/2015 Telangiectasia 04/17/2013 02/16/2015 Cutaneous skin tags 04/17/2013 02/16/2015 OVERWEIGHT 07/04/2005 02/16/2015 DIABETES MELLITUS TYPE II-UNCOMPL 07/04/2005 02/16/2015 Other and unspecified hyperlipidemia 07/04/2005 01/04/2016 Cough 07/04/2005 02/16/2015 Overview: chronic documented as of this encounter (statuses as of 04/13/2022) [facility]12[facility] History of Past illness Narrative* Problem Noted Date Resolved Date DM (diabetes mellitus) 08/11/2014 6 Steele angioma 04/17/2013 02/16/2015 Capillary angioma 04/17/2013 02/16/2015 Solar lentigo 04/17/2013 02/16/2015 Actinic skin damage 04/17/2013 02/16/2015 Telangiectasia 04/17/2013 02/16/2015 Cutaneous skin tags 04/17/2013 02/16/2015 OVERWEIGHT 07/04/2005 02/16/2015 DIABETES MELLITUS TYPE II-UNCOMPL 07/04/2005 02/16/2015 Other and unspecified hyperlipidemia 07/04/2005 01/04/2016 Cough 07/04/2005 02/16/2015 Overview: chronic documented as of this encounter (statuses as of 04/19/2022) [facility]12[facility] History of Past illness Narrative* Problem Noted Date Resolved Date DM (diabetes mellitus) 08/11/2014 6 Steele angioma 04/17/2013 02/16/2015 Capillary angioma 04/17/2013 02/16/2015 Solar lentigo 04/17/2013 02/16/2015 Actinic skin damage 04/17/2013 02/16/2015 Telangiectasia 04/17/2013 02/16/2015 Cutaneous skin tags 04/17/2013 02/16/2015 OVERWEIGHT 07/04/2005 02/16/2015 DIABETES MELLITUS TYPE II-UNCOMPL 07/04/2005 02/16/2015 Other and unspecified hyperlipidemia 07/04/2005 01/04/2016 Cough 07/04/2005 02/16/2015 Overview: chronic documented as of this encounter (statuses as of 04/21/2022) [facility] History of Past illness Narrative* Problem Noted Date Resolved Date DM (diabetes mellitus) 08/11/2014 6 Steele angioma 04/17/2013 02/16/2015 Capillary angioma 04/17/2013 02/16/2015 Solar lentigo 04/17/2013 02/16/2015 Actinic skin damage 04/17/2013 02/16/2015 Telangiectasia 04/17/2013 02/16/2015 Cutaneous skin tags 04/17/2013 02/16/2015 OVERWEIGHT 07/04/2005 02/16/2015 DIABETES MELLITUS TYPE II-UNCOMPL 07/04/2005 02/16/2015 Other and unspecified hyperlipidemia 07/04/2005 01/04/2016 Cough 07/04/2005 02/16/2015 Overview: chronic documented as of this encounter (statuses as of 04/22/2022) [facility]12[facility]2014 History of Past illness Narrative* Problem Noted Date Resolved Date DM (diabetes mellitus) 08/11/2014 6 Steele angioma 04/17/2013 02/16/2015 Capillary angioma 04/17/2013 02/16/2015 Solar lentigo 04/17/2013 02/16/2015 Actinic skin damage 04/17/2013 02/16/2015 Telangiectasia 04/17/2013 02/16/2015 Cutaneous skin tags 04/17/2013 02/16/2015 OVERWEIGHT 07/04/2005 02/16/2015 DIABETES MELLITUS TYPE II-UNCOMPL 07/04/2005 02/16/2015 Other and unspecified hyperlipidemia 07/04/2005 01/04/2016 Cough 07/04/2005 02/16/2015 Overview: chronic documented as of this encounter (statuses as of 05/09/2022) [facility]12-01[facility]2014 History of Past illness Narrative* Problem Noted Date Resolved Date DM (diabetes mellitus) 08/11/2014 6 Steele angioma 04/17/2013 02/16/2015 Capillary angioma 04/17/2013 02/16/2015 Solar lentigo 04/17/2013 02/16/2015 Actinic skin damage 04/17/2013 02/16/2015 Telangiectasia 04/17/2013 02/16/2015 Cutaneous skin tags 04/17/2013 02/16/2015 OVERWEIGHT 07/04/2005 02/16/2015 DIABETES MELLITUS TYPE II-UNCOMPL 07/04/2005 02/16/2015 Other and unspecified hyperlipidemia 07/04/2005 01/04/2016 Cough 07/04/2005 02/16/2015 Overview: chronic documented as of this encounter (statuses as of 06/02/2022) [facility]12[facility]01[facility]2014 History of Past illness Narrative* Problem Noted Date Resolved Date DM (diabetes mellitus) 08/11/2014 6 Steele angioma 04/17/2013 02/16/2015 Capillary angioma 04/17/2013 02/16/2015 Solar lentigo 04/17/2013 02/16/2015 Actinic skin damage 04/17/2013 02/16/2015 Telangiectasia 04/17/2013 02/16/2015 Cutaneous skin tags 04/17/2013 02/16/2015 OVERWEIGHT 07/04/2005 02/16/2015 DIABETES MELLITUS TYPE II-UNCOMPL 07/04/2005 02/16/2015 Other and unspecified hyperlipidemia 07/04/2005 01/04/2016 Cough 07/04/2005 02/16/2015 Overview: chronic documented as of this encounter (statuses as of 06/15/2022) [facility]12[facility]2014 History of Past illness Narrative* Problem Noted Date Resolved Date DM (diabetes mellitus) 08/11/2014 6 Steele angioma 04/17/2013 02/16/2015 Capillary angioma 04/17/2013 02/16/2015 Solar lentigo 04/17/2013 02/16/2015 Actinic skin damage 04/17/2013 02/16/2015 Telangiectasia 04/17/2013 02/16/2015 Cutaneous skin tags 04/17/2013 02/16/2015 OVERWEIGHT 07/04/2005 02/16/2015 DIABETES MELLITUS TYPE II-UNCOMPL 07/04/2005 02/16/2015 Other and unspecified hyperlipidemia 07/04/2005 01/04/2016 Cough 07/04/2005 02/16/2015 Overview: chronic documented as of this encounter (statuses as of 06/17/2022) [facility]12[facility]2014 History of Past illness Narrative* Problem Noted Date Resolved Date DM (diabetes mellitus) 08/11/2014 6 Steele angioma 04/17/2013 02/16/2015 Capillary angioma 04/17/2013 02/16/2015 Solar lentigo 04/17/2013 02/16/2015 Actinic skin damage 04/17/2013 02/16/2015 Telangiectasia 04/17/2013 02/16/2015 Cutaneous skin tags 04/17/2013 02/16/2015 OVERWEIGHT 07/04/2005 02/16/2015 DIABETES MELLITUS TYPE II-UNCOMPL 07/04/2005 02/16/2015 Other and unspecified hyperlipidemia 07/04/2005 01/04/2016 Cough 07/04/2005 02/16/2015 Overview: chronic documented as of this encounter (statuses as of 2022) [facility]12[facility]01[facility]2014 History of Past illness Narrative* Problem Noted Date Resolved Date DM (diabetes mellitus) 08/11/2014 6 Steele angioma 04/17/2013 02/16/2015 Capillary angioma 04/17/2013 02/16/2015 Solar lentigo 04/17/2013 02/16/2015 Actinic skin damage 04/17/2013 02/16/2015 Telangiectasia 04/17/2013 02/16/2015 Cutaneous skin tags 04/17/2013 02/16/2015 OVERWEIGHT 07/04/2005 02/16/2015 DIABETES MELLITUS TYPE II-UNCOMPL 07/04/2005 02/16/2015 Other and unspecified hyperlipidemia 07/04/2005 01/04/2016 Cough 07/04/2005 02/16/2015 Overview: chronic documented as of this encounter (statuses as of 07/02/2022) [facility]12[facility] History of Past illness Narrative* Problem Noted Date Resolved Date DM (diabetes mellitus) 08/11/2014 6 Steele angioma 04/17/2013 02/16/2015 Capillary angioma 04/17/2013 02/16/2015 Solar lentigo 04/17/2013 02/16/2015 Actinic skin damage 04/17/2013 02/16/2015 Telangiectasia 04/17/2013 02/16/2015 Cutaneous skin tags 04/17/2013 02/16/2015 OVERWEIGHT 07/04/2005 02/16/2015 DIABETES MELLITUS TYPE II-UNCOMPL 07/04/2005 02/16/2015 Other and unspecified hyperlipidemia 07/04/2005 01/04/2016 Cough 07/04/2005 02/16/2015 Overview: chronic documented as of this encounter (statuses as of 07/15/2022) [facility]12[facility]2014 History of Past illness Narrative* Problem Noted Date Resolved Date DM (diabetes mellitus) 08/11/2014 6 Steele angioma 04/17/2013 02/16/2015 Capillary angioma 04/17/2013 02/16/2015 Solar lentigo 04/17/2013 02/16/2015 Actinic skin damage 04/17/2013 02/16/2015 Telangiectasia 04/17/2013 02/16/2015 Cutaneous skin tags 04/17/2013 02/16/2015 OVERWEIGHT 07/04/2005 02/16/2015 DIABETES MELLITUS TYPE II-UNCOMPL 07/04/2005 02/16/2015 Other and unspecified hyperlipidemia 07/04/2005 01/04/2016 Cough 07/04/2005 02/16/2015 Overview: chronic documented as of this encounter (statuses as of 07/20/2022) [facility]12[facility]2014 History of Past illness Narrative* Problem Noted Date Resolved Date DM (diabetes mellitus) 08/11/2014 6 Steele angioma 04/17/2013 02/16/2015 Capillary angioma 04/17/2013 02/16/2015 Solar lentigo 04/17/2013 02/16/2015 Actinic skin damage 04/17/2013 02/16/2015 Telangiectasia 04/17/2013 02/16/2015 Cutaneous skin tags 04/17/2013 02/16/2015 OVERWEIGHT 07/04/2005 02/16/2015 DIABETES MELLITUS TYPE II-UNCOMPL 07/04/2005 02/16/2015 Other and unspecified hyperlipidemia 07/04/2005 01/04/2016 Cough 07/04/2005 02/16/2015 Overview: chronic documented as of this encounter (statuses as of 07/21/2022) [facility]12[facility]2014 History of Past illness Narrative* Problem Noted Date Resolved Date DM (diabetes mellitus) 08/11/2014 6 Steele angioma 04/17/2013 02/16/2015 Capillary angioma 04/17/2013 02/16/2015 Solar lentigo 04/17/2013 02/16/2015 Actinic skin damage 04/17/2013 02/16/2015 Telangiectasia 04/17/2013 02/16/2015 Cutaneous skin tags 04/17/2013 02/16/2015 OVERWEIGHT 07/04/2005 02/16/2015 DIABETES MELLITUS TYPE II-UNCOMPL 07/04/2005 02/16/2015 Other and unspecified hyperlipidemia 07/04/2005 01/04/2016 Cough 07/04/2005 02/16/2015 Overview: chronic documented as of this encounter (statuses as of 08/01/2022) [facility]12[facility]01[facility]2014 History of Past illness Narrative* Problem Noted Date Resolved Date DM (diabetes mellitus) 08/11/2014 6 Steele angioma 04/17/2013 02/16/2015 Capillary angioma 04/17/2013 02/16/2015 Solar lentigo 04/17/2013 02/16/2015 Actinic skin damage 04/17/2013 02/16/2015 Telangiectasia 04/17/2013 02/16/2015 Cutaneous skin tags 04/17/2013 02/16/2015 OVERWEIGHT 07/04/2005 02/16/2015 DIABETES MELLITUS TYPE II-UNCOMPL 07/04/2005 02/16/2015 Other and unspecified hyperlipidemia 07/04/2005 01/04/2016 Cough 07/04/2005 02/16/2015 Overview: chronic documented as of this encounter (statuses as of 08/19/2022) [facility]12[facility]01[facility]2014 History of Past illness Narrative* Problem Noted Date Resolved Date DM (diabetes mellitus) 08/11/2014 6 Steele angioma 04/17/2013 02/16/2015 Capillary angioma 04/17/2013 02/16/2015 Solar lentigo 04/17/2013 02/16/2015 Actinic skin damage 04/17/2013 02/16/2015 Telangiectasia 04/17/2013 02/16/2015 Cutaneous skin tags 04/17/2013 02/16/2015 OVERWEIGHT 07/04/2005 02/16/2015 DIABETES MELLITUS TYPE II-UNCOMPL 07/04/2005 02/16/2015 Other and unspecified hyperlipidemia 07/04/2005 01/04/2016 Cough 07/04/2005 02/16/2015 Overview: chronic documented as of this encounter (statuses as of 08/25/2022) [facility]12[facility]2014 History of Past illness Narrative* Problem Noted Date Resolved Date DM (diabetes mellitus) 08/11/2014 6 Steele angioma 04/17/2013 02/16/2015 Capillary angioma 04/17/2013 02/16/2015 Solar lentigo 04/17/2013 02/16/2015 Actinic skin damage 04/17/2013 02/16/2015 Telangiectasia 04/17/2013 02/16/2015 Cutaneous skin tags 04/17/2013 02/16/2015 OVERWEIGHT 07/04/2005 02/16/2015 DIABETES MELLITUS TYPE II-UNCOMPL 07/04/2005 02/16/2015 Other and unspecified hyperlipidemia 07/04/2005 01/04/2016 Cough 07/04/2005 02/16/2015 Overview: chronic documented as of this encounter (statuses as of 08/25/2022) [facility]12[facility]01[facility]2014 History of Past illness Narrative* Problem Noted Date Resolved Date DM (diabetes mellitus) 08/11/2014 6 Steele angioma 04/17/2013 02/16/2015 Capillary angioma 04/17/2013 02/16/2015 Solar lentigo 04/17/2013 02/16/2015 Actinic skin damage 04/17/2013 02/16/2015 Telangiectasia 04/17/2013 02/16/2015 Cutaneous skin tags 04/17/2013 02/16/2015 OVERWEIGHT 07/04/2005 02/16/2015 DIABETES MELLITUS TYPE II-UNCOMPL 07/04/2005 02/16/2015 Other and unspecified hyperlipidemia 07/04/2005 01/04/2016 Cough 07/04/2005 02/16/2015 Overview: chronic documented as of this encounter (statuses as of 09/21/2022) [facility]12[facility]2014 History of Past illness Narrative* Problem Noted Date Resolved Date DM (diabetes mellitus) 08/11/2014 6 Steele angioma 04/17/2013 02/16/2015 Capillary angioma 04/17/2013 02/16/2015 Solar lentigo 04/17/2013 02/16/2015 Actinic skin damage 04/17/2013 02/16/2015 Telangiectasia 04/17/2013 02/16/2015 Cutaneous skin tags 04/17/2013 02/16/2015 OVERWEIGHT 07/04/2005 02/16/2015 DIABETES MELLITUS TYPE II-UNCOMPL 07/04/2005 02/16/2015 Other and unspecified hyperlipidemia 07/04/2005 01/04/2016 Cough 07/04/2005 02/16/2015 Overview: chronic documented as of this encounter (statuses as of 11/01/2022) [facility]12[facility]2014 History of Past illness Narrative* Problem Noted Date Resolved Date DM (diabetes mellitus) 08/11/2014 6 Steele angioma 04/17/2013 02/16/2015 Capillary angioma 04/17/2013 02/16/2015 Solar lentigo 04/17/2013 02/16/2015 Actinic skin damage 04/17/2013 02/16/2015 Telangiectasia 04/17/2013 02/16/2015 Cutaneous skin tags 04/17/2013 02/16/2015 OVERWEIGHT 07/04/2005 02/16/2015 DIABETES MELLITUS TYPE II-UNCOMPL 07/04/2005 02/16/2015 Other and unspecified hyperlipidemia 07/04/2005 01/04/2016 Cough 07/04/2005 02/16/2015 Overview: chronic documented as of this encounter (statuses as of 11/07/2022) [facility]12[facility]2014 History of Past illness Narrative* Problem Noted Date Resolved Date DM (diabetes mellitus) 08/11/2014 6 Steele angioma 04/17/2013 02/16/2015 Capillary angioma 04/17/2013 02/16/2015 Solar lentigo 04/17/2013 02/16/2015 Actinic skin damage 04/17/2013 02/16/2015 Telangiectasia 04/17/2013 02/16/2015 Cutaneous skin tags 04/17/2013 02/16/2015 OVERWEIGHT 07/04/2005 02/16/2015 DIABETES MELLITUS TYPE II-UNCOMPL 07/04/2005 02/16/2015 Other and unspecified hyperlipidemia 07/04/2005 01/04/2016 Cough 07/04/2005 02/16/2015 Overview: chronic documented as of this encounter (statuses as of 11/10/2022) [facility]12[facility] History of Past illness Narrative* Problem Noted Date Resolved Date DM (diabetes mellitus) 08/11/2014 6 Steele angioma 04/17/2013 02/16/2015 Capillary angioma 04/17/2013 02/16/2015 Solar lentigo 04/17/2013 02/16/2015 Actinic skin damage 04/17/2013 02/16/2015 Telangiectasia 04/17/2013 02/16/2015 Cutaneous skin tags 04/17/2013 02/16/2015 OVERWEIGHT 07/04/2005 02/16/2015 DIABETES MELLITUS TYPE II-UNCOMPL 07/04/2005 02/16/2015 Other and unspecified hyperlipidemia 07/04/2005 01/04/2016 Cough 07/04/2005 02/16/2015 Overview: chronic documented as of this encounter (statuses as of 11/25/2022) [facility] History of Past illness Narrative* Problem Noted Date Resolved Date DM (diabetes mellitus) 08/11/2014 6 Steele angioma 04/17/2013 02/16/2015 Capillary angioma 04/17/2013 02/16/2015 Solar lentigo 04/17/2013 02/16/2015 Actinic skin damage 04/17/2013 02/16/2015 Telangiectasia 04/17/2013 02/16/2015 Cutaneous skin tags 04/17/2013 02/16/2015 OVERWEIGHT 07/04/2005 02/16/2015 DIABETES MELLITUS TYPE II-UNCOMPL 07/04/2005 02/16/2015 Other and unspecified hyperlipidemia 07/04/2005 01/04/2016 Cough 07/04/2005 02/16/2015 Overview: chronic documented as of this encounter (statuses as of 11/25/2022) [facility] History of Past illness Narrative* Problem Noted Date Resolved Date DM (diabetes mellitus) 08/11/2014 6 Steele angioma 04/17/2013 02/16/2015 Capillary angioma 04/17/2013 02/16/2015 Solar lentigo 04/17/2013 02/16/2015 Actinic skin damage 04/17/2013 02/16/2015 Telangiectasia 04/17/2013 02/16/2015 Cutaneous skin tags 04/17/2013 02/16/2015 OVERWEIGHT 07/04/2005 02/16/2015 DIABETES MELLITUS TYPE II-UNCOMPL 07/04/2005 02/16/2015 Other and unspecified hyperlipidemia 07/04/2005 01/04/2016 Cough 07/04/2005 02/16/2015 Overview: chronic documented as of this encounter (statuses as of 12/14/2022) [facility] History of Past illness Narrative* Problem Noted Date Resolved Date DM (diabetes mellitus) 08/11/2014 6 Steele angioma 04/17/2013 02/16/2015 Capillary angioma 04/17/2013 02/16/2015 Solar lentigo 04/17/2013 02/16/2015 Actinic skin damage 04/17/2013 02/16/2015 Telangiectasia 04/17/2013 02/16/2015 Cutaneous skin tags 04/17/2013 02/16/2015 OVERWEIGHT 07/04/2005 02/16/2015 DIABETES MELLITUS TYPE II-UNCOMPL 07/04/2005 02/16/2015 Other and unspecified hyperlipidemia 07/04/2005 01/04/2016 Cough 07/04/2005 02/16/2015 Overview: chronic documented as of this encounter (statuses as of 02/16/2023) [facility] History of Past illness Narrative* Problem Noted Date Resolved Date DM (diabetes mellitus) 08/11/2014 6 Steele angioma 04/17/2013 02/16/2015 Capillary angioma 04/17/2013 02/16/2015 Solar lentigo 04/17/2013 02/16/2015 Actinic skin damage 04/17/2013 02/16/2015 Telangiectasia 04/17/2013 02/16/2015 Cutaneous skin tags 04/17/2013 02/16/2015 OVERWEIGHT 07/04/2005 02/16/2015 DIABETES MELLITUS TYPE II-UNCOMPL 07/04/2005 02/16/2015 Other and unspecified hyperlipidemia 07/04/2005 01/04/2016 Cough 07/04/2005 02/16/2015 Overview: chronic documented as of this encounter (statuses as of 02/23/2023) [facility] History of Past illness Narrative* Problem Noted Date Resolved Date DM (diabetes mellitus) 08/11/2014 6 Stelee angioma 04/17/2013 02/16/2015 Capillary angioma 04/17/2013 02/16/2015 Solar lentigo 04/17/2013 02/16/2015 Actinic skin damage 04/17/2013 02/16/2015 Telangiectasia 04/17/2013 02/16/2015 Cutaneous skin tags 04/17/2013 02/16/2015 OVERWEIGHT 07/04/2005 02/16/2015 DIABETES MELLITUS TYPE II-UNCOMPL 07/04/2005 02/16/2015 Other and unspecified hyperlipidemia 07/04/2005 01/04/2016 Cough 07/04/2005 02/16/2015 Overview: chronic documented as of this encounter (statuses as of 02/27/2023) [facility] History of Past illness Narrative* Problem Noted Date Resolved Date DM (diabetes mellitus) 08/11/2014 6 Steele angioma 04/17/2013 02/16/2015 Capillary angioma 04/17/2013 02/16/2015 Solar lentigo 04/17/2013 02/16/2015 Actinic skin damage 04/17/2013 02/16/2015 Telangiectasia 04/17/2013 02/16/2015 Cutaneous skin tags 04/17/2013 02/16/2015 OVERWEIGHT 07/04/2005 02/16/2015 DIABETES MELLITUS TYPE II-UNCOMPL 07/04/2005 02/16/2015 Other and unspecified hyperlipidemia 07/04/2005 01/04/2016 Cough 07/04/2005 02/16/2015 Overview: chronic documented as of this encounter (statuses as of 02/28/2023) [facility] History of Past illness Narrative* Problem Noted Date Resolved Date DM (diabetes mellitus) 08/11/2014 6 Steele angioma 04/17/2013 02/16/2015 Capillary angioma 04/17/2013 02/16/2015 Solar lentigo 04/17/2013 02/16/2015 Actinic skin damage 04/17/2013 02/16/2015 Telangiectasia 04/17/2013 02/16/2015 Cutaneous skin tags 04/17/2013 02/16/2015 OVERWEIGHT 07/04/2005 02/16/2015 DIABETES MELLITUS TYPE II-UNCOMPL 07/04/2005 02/16/2015 Other and unspecified hyperlipidemia 07/04/2005 01/04/2016 Cough 07/04/2005 02/16/2015 Overview: chronic documented as of this encounter (statuses as of 03/01/2023) [facility] History of Past illness Narrative* Problem Noted Date Resolved Date DM (diabetes mellitus) 08/11/2014 6 Steele angioma 04/17/2013 02/16/2015 Capillary angioma 04/17/2013 02/16/2015 Solar lentigo 04/17/2013 02/16/2015 Actinic skin damage 04/17/2013 02/16/2015 Telangiectasia 04/17/2013 02/16/2015 Cutaneous skin tags 04/17/2013 02/16/2015 OVERWEIGHT 07/04/2005 02/16/2015 DIABETES MELLITUS TYPE II-UNCOMPL 07/04/2005 02/16/2015 Other and unspecified hyperlipidemia 07/04/2005 01/04/2016 Cough 07/04/2005 02/16/2015 Overview: chronic documented as of this encounter (statuses as of 03/01/2023) [facility] History of Past illness Narrative* Problem Noted Date Diagnosed Date Resolved Date DM (diabetes mellitus) 08/11/201401/03 Steele angioma 04/17/2013 02/16/2015 Capillary angioma 04/17/2013 02/16/2015 Solar lentigo 04/17/2013 02/16/2015 Actinic skin damage 04/17/2013 02/17/20 15 Telangiectasia 04/17/2013 02/16/2015 Cutaneous skin tags 04/17/2013 02/17/20 15 OVERWEIGHT 07/04/2005 02/16/2015 DIABETES MELLITUS TYPE II-UNCOMPL 07/04/2005 02/16/2015 Other and unspecified hyperlipidemia 07/04/2005 01/04/2016 Cough 07/04/2005 02/16/2015 Overview: chronic documented as of this encounter (statuses as of 04/13/2023) [facility] History of Past illness Narrative* Problem Noted Date Diagnosed Date Resolved Date DM (diabetes mellitus) 08/11/201401/03 Steele angioma 04/17/2013 02/16/2015 Capillary angioma 04/17/2013 02/16/2015 Solar lentigo 04/17/2013 02/16/2015 Actinic skin damage 04/17/2013 02/17/20 15 Telangiectasia 04/17/2013 02/16/2015 Cutaneous skin tags 04/17/2013 02/17/20 15 OVERWEIGHT 07/04/2005 02/16/2015 DIABETES MELLITUS TYPE II-UNCOMPL 07/04/2005 02/16/2015 Other and unspecified hyperlipidemia 07/04/2005 01/04/2016 Cough 07/04/2005 02/16/2015 Overview: chronic documented as of this encounter (statuses as of 04/18/2023) [facility] History of Past illness Narrative* Problem Noted Date Diagnosed Date Resolved Date DM (diabetes mellitus) 08/11/201401/03 Steele angioma 04/17/2013 02/16/2015 Capillary angioma 04/17/2013 02/16/2015 Solar lentigo 04/17/2013 02/16/2015 Actinic skin damage 04/17/2013 02/17/20 15 Telangiectasia 04/17/2013 02/16/2015 Cutaneous skin tags 04/17/2013 02/17/20 15 OVERWEIGHT 07/04/2005 02/16/2015 DIABETES MELLITUS TYPE II-UNCOMPL 07/04/2005 02/16/2015 Other and unspecified hyperlipidemia 07/04/2005 01/04/2016 Cough 07/04/2005 02/16/2015 Overview: chronic documented as of this encounter (statuses as of 05/19/2023) [facility] History of Past illness Narrative* Problem Noted Date Diagnosed Date Resolved Date DM (diabetes mellitus) 08/11/201401/03 Steele angioma 04/17/2013 02/16/2015 Capillary angioma 04/17/2013 02/16/2015 Solar lentigo 04/17/2013 02/16/2015 Actinic skin damage 04/17/2013 02/17/20 15 Telangiectasia 04/17/2013 02/16/2015 Cutaneous skin tags 04/17/2013 02/17/20 15 OVERWEIGHT 07/04/2005 02/16/2015 DIABETES MELLITUS TYPE II-UNCOMPL 07/04/2005 02/16/2015 Other and unspecified hyperlipidemia 07/04/2005 01/04/2016 Cough 07/04/2005 02/16/2015 Overview: chronic documented as of this encounter (statuses as of 05/19/2023) [facility] History of Past illness Narrative* Problem Noted Date Diagnosed Date Resolved Date DM (diabetes mellitus) 08/11/201401/03 Steele angioma 04/17/2013 02/16/2015 Capillary angioma 04/17/2013 02/16/2015 Solar lentigo 04/17/2013 02/16/2015 Actinic skin damage 04/17/2013 02/17/20 15 Telangiectasia 04/17/2013 02/16/2015 Cutaneous skin tags 04/17/2013 02/17/20 15 OVERWEIGHT 07/04/2005 02/16/2015 DIABETES MELLITUS TYPE II-UNCOMPL 07/04/2005 02/16/2015 Other and unspecified hyperlipidemia 07/04/2005 01/04/2016 Cough 07/04/2005 02/16/2015 Overview: chronic documented as of this encounter (statuses as of 05/30/2023) [facility] History of Past illness Narrative* Problem Noted Date Diagnosed Date Resolved Date DM (diabetes mellitus) 08/11/201401/03 Steele angioma 04/17/2013 02/16/2015 Capillary angioma 04/17/2013 02/16/2015 Solar lentigo 04/17/2013 02/16/2015 Actinic skin damage 04/17/2013 02/17/20 15 Telangiectasia 04/17/2013 02/16/2015 Cutaneous skin tags 04/17/2013 02/17/20 15 OVERWEIGHT 07/04/2005 02/16/2015 DIABETES MELLITUS TYPE II-UNCOMPL 07/04/2005 02/16/2015 Other and unspecified hyperlipidemia 07/04/2005 01/04/2016 Cough 07/04/2005 02/16/2015 Overview: chronic documented as of this encounter (statuses as of 07/07/2023) [facility]12-[facility]2014 History of Past illness Narrative* Problem Noted Date Diagnosed Date Resolved Date DM (diabetes mellitus) 08/11/201401/03 Steele angioma 04/17/2013 02/16/2015 Capillary angioma 04/17/2013 02/16/2015 Solar lentigo 04/17/2013 02/16/2015 Actinic skin damage 04/17/2013 02/17/20 15 Telangiectasia 04/17/2013 02/16/2015 Cutaneous skin tags 04/17/2013 02/17/20 15 OVERWEIGHT 07/04/2005 02/16/2015 DIABETES MELLITUS TYPE II-UNCOMPL 07/04/2005 02/16/2015 Other and unspecified hyperlipidemia 07/04/2005 01/04/2016 Cough 07/04/2005 02/16/2015 Overview: chronic documented as of this encounter (statuses as of 07/15/2023) [facility]12[facility] History of Past illness Narrative* Problem Noted Date Diagnosed Date Resolved Date DM (diabetes mellitus) 08/11/201401/03 Steele angioma 04/17/2013 02/16/2015 Capillary angioma 04/17/2013 02/16/2015 Solar lentigo 04/17/2013 02/16/2015 Actinic skin damage 04/17/2013 02/17/20 15 Telangiectasia 04/17/2013 02/16/2015 Cutaneous skin tags 04/17/2013 02/17/20 15 OVERWEIGHT 07/04/2005 02/16/2015 DIABETES MELLITUS TYPE II-UNCOMPL 07/04/2005 02/16/2015 Other and unspecified hyperlipidemia 07/04/2005 01/04/2016 Cough 07/04/2005 02/16/2015 Overview: chronic documented as of this encounter (statuses as of 07/16/2023) [facility] History of Past illness Narrative* Problem Noted Date Diagnosed Date Resolved Date DM (diabetes mellitus) 08/11/201401/03 Steele angioma 04/17/2013 02/16/2015 Capillary angioma 04/17/2013 02/16/2015 Solar lentigo 04/17/2013 02/16/2015 Actinic skin damage 04/17/2013 02/17/20 15 Telangiectasia 04/17/2013 02/16/2015 Cutaneous skin tags 04/17/2013 02/17/20 15 OVERWEIGHT 07/04/2005 02/16/2015 DIABETES MELLITUS TYPE II-UNCOMPL 07/04/2005 02/16/2015 Other and unspecified hyperlipidemia 07/04/2005 01/04/2016 Cough 07/04/2005 02/16/2015 Overview: chronic documented as of this encounter (statuses as of 08/01/2023) [facility] History of Past illness Narrative* Problem Noted Date Diagnosed Date Resolved Date DM (diabetes mellitus) 08/11/201401/03 Steele angioma 04/17/2013 02/16/2015 Capillary angioma 04/17/2013 02/16/2015 Solar lentigo 04/17/2013 02/16/2015 Actinic skin damage 04/17/2013 02/17/20 15 Telangiectasia 04/17/2013 02/16/2015 Cutaneous skin tags 04/17/2013 02/17/20 15 OVERWEIGHT 07/04/2005 02/16/2015 DIABETES MELLITUS TYPE II-UNCOMPL 07/04/2005 02/16/2015 Other and unspecified hyperlipidemia 07/04/2005 01/04/2016 Cough 07/04/2005 02/16/2015 Overview: chronic documented as of this encounter (statuses as of 08/15/2023) [facility] History of Past illness Narrative* Problem Noted Date Diagnosed Date Resolved Date DM (diabetes mellitus) 08/11/201401/03 Steele angioma 04/17/2013 02/16/2015 Capillary angioma 04/17/2013 02/16/2015 Solar lentigo 04/17/2013 02/16/2015 Actinic skin damage 04/17/2013 02/17/20 15 Telangiectasia 04/17/2013 02/16/2015 Cutaneous skin tags 04/17/2013 02/17/20 15 OVERWEIGHT 07/04/2005 02/16/2015 DIABETES MELLITUS TYPE II-UNCOMPL 07/04/2005 02/16/2015 Other and unspecified hyperlipidemia 07/04/2005 01/04/2016 Cough 07/04/2005 02/16/2015 Overview: chronic documented as of this encounter (statuses as of 09/01/2023) [facility]12[facility] History of Past illness Narrative* Problem Noted Date Diagnosed Date Resolved Date DM (diabetes mellitus) 08/11/201401/03 Steele angioma 04/17/2013 02/16/2015 Capillary angioma 04/17/2013 02/16/2015 Solar lentigo 04/17/2013 02/16/2015 Actinic skin damage 04/17/2013 02/17/20 15 Telangiectasia 04/17/2013 02/16/2015 Cutaneous skin tags 04/17/2013 02/17/20 15 OVERWEIGHT 07/04/2005 02/16/2015 DIABETES MELLITUS TYPE II-UNCOMPL 07/04/2005 02/16/2015 Other and unspecified hyperlipidemia 07/04/2005 01/04/2016 Cough 07/04/2005 02/16/2015 Overview: chronic documented as of this encounter (statuses as of 10/18/2023) [facility]12-01[facility] History of Past illness Narrative* Problem Noted Date Diagnosed Date Resolved Date DM (diabetes mellitus) 08/11/201401/03 Steele angioma 04/17/2013 02/16/2015 Capillary angioma 04/17/2013 02/16/2015 Solar lentigo 04/17/2013 02/16/2015 Actinic skin damage 04/17/2013 02/17/20 15 Telangiectasia 04/17/2013 02/16/2015 Cutaneous skin tags 04/17/2013 02/17/20 15 OVERWEIGHT 07/04/2005 02/16/2015 DIABETES MELLITUS TYPE II-UNCOMPL 07/04/2005 02/16/2015 Other and unspecified hyperlipidemia 07/04/2005 01/04/2016 Cough 07/04/2005 02/16/2015 Overview: chronic documented as of this encounter (statuses as of 10/30/2023) [facility]12[facility]01[facility] History of Past illness Narrative* Problem Noted Date Diagnosed Date Resolved Date DM (diabetes mellitus) 08/11/201401/03 Steele angioma 04/17/2013 02/16/2015 Capillary angioma 04/17/2013 02/16/2015 Solar lentigo 04/17/2013 02/16/2015 Actinic skin damage 04/17/2013 02/17/20 15 Telangiectasia 04/17/2013 02/16/2015 Cutaneous skin tags 04/17/2013 02/17/20 15 OVERWEIGHT 07/04/2005 02/16/2015 DIABETES MELLITUS TYPE II-UNCOMPL 07/04/2005 02/16/2015 Other and unspecified hyperlipidemia 07/04/2005 01/04/2016 Cough 07/04/2005 02/16/2015 Overview: chronic documented as of this encounter (statuses as of 11/29/2023) [facility]12[facility] History of Past illness Narrative* Problem Noted Date Diagnosed Date Resolved Date DM (diabetes mellitus) 08/11/201401/03 Steele angioma 04/17/2013 02/16/2015 Capillary angioma 04/17/2013 02/16/2015 Solar lentigo 04/17/2013 02/16/2015 Actinic skin damage 04/17/2013 02/17/20 15 Telangiectasia 04/17/2013 02/16/2015 Cutaneous skin tags 04/17/2013 02/17/20 15 OVERWEIGHT 07/04/2005 02/16/2015 DIABETES MELLITUS TYPE II-UNCOMPL 07/04/2005 02/16/2015 Other and unspecified hyperlipidemia 07/04/2005 01/04/2016 Cough 07/04/2005 02/16/2015 Overview: chronic documented as of this encounter (statuses as of 12/04/2023) [facility]12[facility] History of Past illness Narrative* Problem Noted Date Diagnosed Date Resolved Date DM (diabetes mellitus) 08/11/201401/03 Steele angioma 04/17/2013 02/16/2015 Capillary angioma 04/17/2013 02/16/2015 Solar lentigo 04/17/2013 02/16/2015 Actinic skin damage 04/17/2013 02/17/20 15 Telangiectasia 04/17/2013 02/16/2015 Cutaneous skin tags 04/17/2013 02/17/20 15 OVERWEIGHT 07/04/2005 02/16/2015 DIABETES MELLITUS TYPE II-UNCOMPL 07/04/2005 02/16/2015 Other and unspecified hyperlipidemia 07/04/2005 01/04/2016 Cough 07/04/2005 02/16/2015 Overview: chronic documented as of this encounter (statuses as of 12/06/2023) [facility]12[facility] History of Past illness Narrative* Problem Noted Date Diagnosed Date Resolved Date DM (diabetes mellitus) 08/11/201401/03 Steele angioma 04/17/2013 02/16/2015 Capillary angioma 04/17/2013 02/16/2015 Solar lentigo 04/17/2013 02/16/2015 Actinic skin damage 04/17/2013 02/17/20 15 Telangiectasia 04/17/2013 02/16/2015 Cutaneous skin tags 04/17/2013 02/17/20 15 OVERWEIGHT 07/04/2005 02/16/2015 DIABETES MELLITUS TYPE II-UNCOMPL 07/04/2005 02/16/2015 Other and unspecified hyperlipidemia 07/04/2005 01/04/2016 Cough 07/04/2005 02/16/2015 Overview: chronic documented as of this encounter (statuses as of 12/15/2023) [facility]12[facility] History of Past illness Narrative* Problem Noted Date Diagnosed Date Resolved Date DM (diabetes mellitus) 08/11/201401/03 Steele angioma 04/17/2013 02/16/2015 Capillary angioma 04/17/2013 02/16/2015 Solar lentigo 04/17/2013 02/16/2015 Actinic skin damage 04/17/2013 02/17/20 15 Telangiectasia 04/17/2013 02/16/2015 Cutaneous skin tags 04/17/2013 02/17/20 15 OVERWEIGHT 07/04/2005 02/16/2015 DIABETES MELLITUS TYPE II-UNCOMPL 07/04/2005 02/16/2015 Other and unspecified hyperlipidemia 07/04/2005 01/04/2016 Cough 07/04/2005 02/16/2015 Overview: chronic documented as of this encounter (statuses as of 12/18/2023) [facility] History of Past illness Narrative* Problem Noted Date Diagnosed Date Resolved Date DM (diabetes mellitus) 08/11/201401/03 Steele angioma 04/17/2013 02/16/2015 Capillary angioma 04/17/2013 02/16/2015 Solar lentigo 04/17/2013 02/16/2015 Actinic skin damage 04/17/2013 02/17/20 15 Telangiectasia 04/17/2013 02/16/2015 Cutaneous skin tags 04/17/2013 02/17/20 15 OVERWEIGHT 07/04/2005 02/16/2015 DIABETES MELLITUS TYPE II-UNCOMPL 07/04/2005 02/16/2015 Other and unspecified hyperlipidemia 07/04/2005 01/04/2016 Cough 07/04/2005 02/16/2015 Overview: chronic documented as of this encounter (statuses as of 12/18/2023) [facility]12[facility] History of Past illness Narrative* Problem Noted Date Diagnosed Date Resolved Date DM (diabetes mellitus) 08/11/201401/03 Steele angioma 04/17/2013 02/16/2015 Capillary angioma 04/17/2013 02/16/2015 Solar lentigo 04/17/2013 02/16/2015 Actinic skin damage 04/17/2013 02/17/20 15 Telangiectasia 04/17/2013 02/16/2015 Cutaneous skin tags 04/17/2013 02/17/20 15 OVERWEIGHT 07/04/2005 02/16/2015 DIABETES MELLITUS TYPE II-UNCOMPL 07/04/2005 02/16/2015 Other and unspecified hyperlipidemia 07/04/2005 01/04/2016 Cough 07/04/2005 02/16/2015 Overview: chronic documented as of this encounter (statuses as of 12/29/2023) [facility]: [facility]* Diagnosis Dizziness- Primary Dizziness and giddiness Headache, unspecified headache type Nausea Nausea alone [facility]* Diagnosis Onset Date Resolution Status Carotid artery stenosis acut e Nausea acute Vertigo acute [facility] Work Phone: evaluation note* Diagnosis Acute cough- Primary Controlled type 2 diabetes mellitus without complication, without long-term current use of insulin (HCC) Hospital discharge follow-up Other follow-up examination Vertigo Dizziness and giddiness documented in this encounter [facility] note* Diagnosis Chronic cough- Primary Cough Controlled type 2 diabetes mellitus without complication, unspecified whether fdc insulin use (HCC) Essential hypertension Unspecified essential hypertension Hyperlipidemia, unspecified hyperlipidemia type documented in this [facility]* Diagnosis Chronic cough- Primary Cough [facility]* Diagnosis Follicular bronchiolitis (HCC)- Primary Other chronic bronchitis Post-nasal drip Postnasal drip Gastroesophageal reflux disease without esophagitis Esophageal reflux documented in this encounter [facility] note* Diagnosis Suspected COVID-19 virus infection- Primary Sinobronchitis Unspecified sinusitis (chronic) documented in this encounter [facility] note* Diagnosis Acute cough- Primary Post-nasal drip Postnasal drip [facility]* Diagnosis Acute cough- Primary Follicular bronchiolitis (HCC) Other chronic bronchitis Gastroesophageal reflux disease without esophagitis Esophageal reflux documented in this encounter [facility] note* Diagnosis Follicular bronchiolitis (HCC)- Primary Other chronic bronchitis Cough, unspecified type Gastroesophageal reflux disease without esophagitis Esophageal reflux Post-nasal drip Postnasal drip documented in this encounter [facility]* Diagnosis Controlled type 2 diabetes mellitus without complication, unspecified whether fdc insulin use (HCC)- Primary Acquired hypothyroidism Unspecified hypothyroidism Essential hypertension Unspecified essential hypertension Hyperlipidemia, unspecified hyperlipidemia type documented in this encounter [facility]* Diagnosis Encounter for screening mammogram for malignant neoplasm of breast- Primary Other screening mammogram documented in this encounter [facility] note* Diagnosis Essential hypertension- Primary Unspecified essential hypertension Hyperlipidemia, unspecified hyperlipidemia type Acquired hypothyroidism Unspecified hypothyroidism Controlled type 2 diabetes mellitus without complication, unspecified whether roasterman insulin use (HCC) Follicular bronchiolitis (HCC) Other chronic bronchitis [facility] Diagnosis Hyperlipidemia, unspecified hyperlipidemia type documented in this encounter [facility] note* Diagnosis Follicular bronchiolitis (HCC) Other chronic bronchitis documented in this encounter [facility] note* Diagnosis Follicular bronchiolitis (HCC)- Primary Other chronic bronchitis Post-nasal drip Postnasal drip Gastroesophageal reflux disease, unspecified whether esophagitis present documented in this [facility]* Diagnosis Essential hypertension- Primary Unspecified essential hypertension Uncontrolled hypertension Unspecified essential hypertension documented in this encounter [facility] note* Diagnosis Essential hypertension- Primary Unspecified essential hypertension Tenderness of right hip Pain in joint, pelvic region and thigh Right thigh pain Pain in limb Right ankle instability Other joint derangement, not elsewhere classified, ankle and foot documented in this encounter [facility]* Diagnosis Controlled type 2 diabetes mellitus without complication, unspecified whether fdc insulin use (HCC)- Primary Essential hypertension Unspecified essential hypertension Hyperlipidemia, unspecified hyperlipidemia type Acquired hypothyroidism Unspecified hypothyroidism documented in this encounter [facility] note* Diagnosis Follicular bronchiolitis- Primary Other chronic bronchitis Upper airway cough syndrome Cough documented in this [facility]* Diagnosis Encounter for screening mammogram for malignant neoplasm of breast Other screening mammogram [facility] Diagnosis Encounter for screening mammogram for malignant neoplasm of breast- Primary Other screening mammogram [facility] Diagnosis Follicular bronchiolitis (HCC)- Primary Other chronic bronchitis Chronic cough Cough Postnasal drip [facility] Diagnosis Hyperlipidemia, unspecified hyperlipidemia type documented in this encounter [facility] note* Diagnosis Follicular bronchiolitis (HCC) Other chronic bronchitis Chronic cough Cough [facility] Diagnosis Controlled type 2 diabetes mellitus without complication, unspecified whether fdc insulin use (HCC)- Primary Essential hypertension Unspecified essential hypertension Acquired hypothyroidism Unspecified hypothyroidism Dizziness Dizziness and giddiness documented [facility]* Diagnosis Medication management- Primary Encounter for long-term (current) use of other medications Dizziness Dizziness and giddiness Acquired hypothyroidism Unspecified hypothyroidism [facility] Diagnosis Elbow wound, left, initial encounter- Primary [facility] Diagnosis Controlled type 2 diabetes mellitus without complication, unspecified whether fdc insulin use (HCC)- Primary Hyperlipidemia, unspecified hyperlipidemia type Essential hypertension Unspecified essential hypertension Gastroesophageal reflux disease without esophagitis Esophageal reflux Grief Adjustment disorder with depressed mood Acquired hypothyroidism Unspecified hypothyroidism Follicular bronchiolitis (HCC) Other chronic bronchitis documented in this encounter [facility] note* Diagnosis Knee injury, right, initial encounter- Primary Controlled type 2 diabetes mellitus without complication, unspecified fdc insulin use status Essential hypertension Unspecified essential hypertension Acquired hypothyroidism Unspecified hypothyroidism Controlled type 2 diabetes mellitus without complication, unspecified roasterman insulin use status- Primary Essential hypertension Unspecified essential hypertension Acquired hypothyroidism Unspecified hypothyroidism Cough Bronchitis Bronchitis, not specified as acute or chronic Controlled type 2 diabetes mellitus without complication, unspecified whether roasterman insulin use (HCC)- Primary documented in this encounter [facility] note* Diagnosis Knee injury, right, initial encounter- Primary Controlled type 2 diabetes mellitus without complication, unspecified roasterman insulin use status Essential hypertension Unspecified essential hypertension Acquired hypothyroidism Unspecified hypothyroidism Controlled type 2 diabetes mellitus without complication, unspecified fdc insulin use status- Primary Essential hypertension Unspecified essential hypertension Acquired hypothyroidism Unspecified hypothyroidism Cough Bronchitis Bronchitis, not specified as acute or chronic Tenderness of right hip Pain in joint, pelvic region and thigh Right thigh pain Pain in limb Right ankle instability Other joint derangement, not elsewhere classified, ankle and foot documented in this encounter [facility] note* Diagnosis Knee injury, right, initial encounter- Primary Controlled type 2 diabetes mellitus without complication, unspecified roasterman insulin use status Essential hypertension Unspecified essential hypertension Acquired hypothyroidism Unspecified hypothyroidism Controlled type 2 diabetes mellitus without complication, unspecified fdc insulin use status- Primary Essential hypertension Unspecified essential hypertension Acquired hypothyroidism Unspecified hypothyroidism Cough Bronchitis Bronchitis, not specified as acute or chronic Follicular bronchiolitis (HCC) Other chronic bronchitis documented in this encounter [facility] note* Diagnosis Knee injury, right, initial encounter- Primary Controlled type 2 diabetes mellitus without complication, unspecified fdc insulin use status Essential hypertension Unspecified essential hypertension Acquired hypothyroidism Unspecified hypothyroidism Controlled type 2 diabetes mellitus without complication, unspecified roasterman insulin use status- Primary Essential hypertension Unspecified essential hypertension Acquired hypothyroidism Unspecified hypothyroidism Cough Bronchitis Bronchitis, not specified as acute or chronic Acute cough documented in this encounter [facility] note* Diagnosis Knee injury, right, initial encounter- Primary Controlled type 2 diabetes mellitus without complication, unspecified roasterman insulin use status Essential hypertension Unspecified essential hypertension Acquired hypothyroidism Unspecified hypothyroidism Controlled type 2 diabetes mellitus without complication, unspecified roasterman insulin use status- Primary Essential hypertension Unspecified essential hypertension Acquired hypothyroidism Unspecified hypothyroidism Cough Bronchitis Bronchitis, not specified as acute or chronic Chronic cough- Primary Cough Follicular bronchiolitis (HCC) Other chronic bronchitis Pulmonary air trapping PND (post-nasal drip) Postnasal drip Cardiac murmur Undiagnosed cardiac murmurs documented in this encounter [facility] note* Diagnosis Knee injury, right, initial encounter- Primary Controlled type 2 diabetes mellitus without complication, unspecified roasterman insulin use status Essential hypertension Unspecified essential hypertension Acquired hypothyroidism Unspecified hypothyroidism Controlled type 2 diabetes mellitus without complication, unspecified roasterman insulin use status- Primary Essential hypertension Unspecified essential hypertension Acquired hypothyroidism Unspecified hypothyroidism Cough Bronchitis Bronchitis, not specified as acute or chronic Controlled type 2 diabetes mellitus without complication, unspecified whether fdc insulin use (HCC)- Primary Essential hypertension Unspecified essential hypertension Hyperlipidemia, unspecified hyperlipidemia type Acquired hypothyroidism Unspecified hypothyroidism Medication management Encounter for long-term (current) use of other medications documented in this encounter [facility] note* Diagnosis Knee injury, right, initial encounter- Primary Controlled type 2 diabetes mellitus without complication, unspecified roasterman insulin use status Essential hypertension Unspecified essential hypertension Acquired hypothyroidism Unspecified hypothyroidism Controlled type 2 diabetes mellitus without complication, unspecified fdc insulin use status- Primary Essential hypertension Unspecified essential hypertension Acquired hypothyroidism Unspecified hypothyroidism Cough Bronchitis Bronchitis, not specified as acute or chronic Acquired hypothyroidism- Primary Unspecified hypothyroidism Medication management Encounter for long-term (current) use of other medications documented in this encounter [facility] note* Diagnosis Knee injury, right, initial encounter- Primary Controlled type 2 diabetes mellitus without complication, unspecified fdc insulin use status Essential hypertension Unspecified essential hypertension Acquired hypothyroidism Unspecified hypothyroidism Controlled type 2 diabetes mellitus without complication, unspecified fdc insulin use status- Primary Essential hypertension Unspecified essential hypertension Acquired hypothyroidism Unspecified hypothyroidism Cough Bronchitis Bronchitis, not specified as acute or chronic Encounter for screening mammogram for breast cancer- Primary documented in this encounter [facility] note* Diagnosis Knee injury, right, initial encounter- Primary Controlled type 2 diabetes mellitus without complication, unspecified fdc insulin use status Essential hypertension Unspecified essential hypertension Acquired hypothyroidism Unspecified hypothyroidism Controlled type 2 diabetes mellitus without complication, unspecified roasterman insulin use status- Primary Essential hypertension Unspecified essential hypertension Acquired hypothyroidism Unspecified hypothyroidism Cough Bronchitis Bronchitis, not specified as acute or chronic Encounter for screening mammogram for breast cancer documented in this [facility]* Diagnosis Knee injury, right, initial encounter- Primary Controlled type 2 diabetes mellitus without complication, unspecified fdc insulin use status Essential hypertension Unspecified essential hypertension Acquired hypothyroidism Unspecified hypothyroidism Controlled type 2 diabetes mellitus without complication, unspecified fdc insulin use status- Primary Essential hypertension Unspecified essential hypertension Acquired hypothyroidism Unspecified hypothyroidism Cough Bronchitis Bronchitis, not specified as acute or chronic Controlled type 2 diabetes mellitus without complication, unspecified whether fdc insulin use (HCC)- Primary Essential hypertension Unspecified essential hypertension Grief Adjustment disorder with depressed mood Acquired hypothyroidism Unspecified hypothyroidism documented in this encounter [facility] note* Diagnosis Knee injury, right, initial encounter- Primary Controlled type 2 diabetes mellitus without complication, unspecified roasterman insulin use status Essential hypertension Unspecified essential hypertension Acquired hypothyroidism Unspecified hypothyroidism Controlled type 2 diabetes mellitus without complication, unspecified roasterman insulin use status- Primary Essential hypertension Unspecified essential hypertension Acquired hypothyroidism Unspecified hypothyroidism Cough Bronchitis Bronchitis, not specified as acute or chronic Chronic cough- Primary Cough Follicular bronchiolitis (HCC) Other chronic bronchitis Pulmonary air trapping Post-nasal drip Postnasal drip Gastroesophageal reflux disease without esophagitis Esophageal reflux [facility]* Diagnosis Knee injury, right, initial encounter- Primary Controlled type 2 diabetes mellitus without complication, unspecified fdc insulin use status Essential hypertension Unspecified essential hypertension Acquired hypothyroidism Unspecified hypothyroidism Controlled type 2 diabetes mellitus without complication, unspecified fdc insulin use status- Primary Essential hypertension Unspecified essential hypertension Acquired hypothyroidism Unspecified hypothyroidism Cough Bronchitis Bronchitis, not specified as acute or chronic Essential hypertension- Primary Unspecified essential hypertension Controlled type 2 diabetes mellitus without complication, unspecified whether roasterman insulin use (HCC) Muscle cramps Cramp of limb Insomnia, unspecified type Anxiety and depression Dysthymic disorder Grief Adjustment disorder with depressed mood Acquired hypothyroidism Unspecified hypothyroidism Gastroesophageal reflux disease without esophagitis Esophageal reflux Hyperlipidemia, unspecified hyperlipidemia type Abnormal color of lips Diseases of lips documented in this encounter [facility] note* Diagnosis Knee injury, right, initial encounter- Primary Controlled type 2 diabetes mellitus without complication, unspecified roasterman insulin use status Essential hypertension Unspecified essential hypertension Acquired hypothyroidism Unspecified hypothyroidism Controlled type 2 diabetes mellitus without complication, unspecified fdc insulin use status- Primary Essential hypertension Unspecified essential hypertension Acquired hypothyroidism Unspecified hypothyroidism Cough Bronchitis Bronchitis, not specified as acute or chronic Hypomagnesemia- Primary Disorders of magnesium metabolism documented in this encounter [facility] note* Diagnosis Knee injury, right, initial encounter- Primary Controlled type 2 diabetes mellitus without complication, unspecified fdc insulin use status Essential hypertension Unspecified essential hypertension Acquired hypothyroidism Unspecified hypothyroidism Controlled type 2 diabetes mellitus without complication, unspecified fdc insulin use status- Primary Essential hypertension Unspecified essential hypertension Acquired hypothyroidism Unspecified hypothyroidism Cough Bronchitis Bronchitis, not specified as acute or chronic Muscle cramps- Primary Cramp of limb Hypomagnesemia Disorders of magnesium metabolism Gastroesophageal reflux disease without esophagitis Esophageal reflux Acute cough Insomnia, unspecified type documented in this encounter [facility] note* Diagnosis Knee injury, right, initial encounter- Primary Controlled type 2 diabetes mellitus without complication, unspecified fdc insulin use status Essential hypertension Unspecified essential hypertension Acquired hypothyroidism Unspecified hypothyroidism Controlled type 2 diabetes mellitus without complication, unspecified fdc insulin use status- Primary Essential hypertension Unspecified essential hypertension Acquired hypothyroidism Unspecified hypothyroidism Cough Bronchitis Bronchitis, not specified as acute or chronic Muscle cramps- Primary Cramp of limb Insomnia, unspecified type Gastroesophageal reflux disease without esophagitis Esophageal reflux Acute cough Hypomagnesemia Disorders of magnesium metabolism Hyperlipidemia, unspecified hyperlipidemia type Essential hypertension Unspecified essential hypertension Acquired hypothyroidism Unspecified hypothyroidism Controlled type 2 diabetes mellitus without complication, unspecified whether fdc insulin use (HCC) documented in this encounter [facility] for referral (narrative)* Outpatient Procedure (Routine) - Authorized Specialty Diagnoses / Procedures Referred By Contac t Referred To Contact [facility] Diagnoses Follicular bronchiolitis (HCC) Procedures SPIROMETRY WITH DILATOR IF OBSTRUCTED BRNCDILAT RSPSE SPMTRY PRE&POST-BRNCDILAT Pamela Meade MD [address] [place] [address] [facility] [address] [place] [address] Referral ID Status Reason Start Date Expiration Date Visits Requested Visits Authorized [id number] Authorized Auto-Generat ed Referral 05/09/2022 06/08/2023 1 1 [facility] for referral (narrative)* Diagnostic Procedure Only (Routine) - Closed Specialty Diagnoses / Procedures Referred By Contac t Referred To Contact [facility] Diagnoses Encounter for screening mammogram for malignant neoplasm of breast Procedures MADISON SCREENING SCREENING MAMMOGRAPHY BI 2-VIEW BREAST INC CAD Griselda Lema APRN.PANEL INSTRUMENT REPAIRER [address] [place] [address] [facility] [address] [place] [address] Referral ID Status Reason Start Date Expiration Date V isits Requested Visits Authorized [id number] Closed Auto-Generate d Referral 07/28/2022 08/27/2023 1 1 [facility] for referral (narrative)* Diagnostic Procedure Only (Routine) - Closed Specialty Diagnoses / Procedures Referred By Contac t Referred To Contact [facility] Diagnoses Encounter for screening mammogram for malignant neoplasm of breast Procedures MADISON SCREENING SCREENING MAMMOGRAPHY BI 2-VIEW BREAST INC [facility] Griselda Lema APRN.PANEL INSTRUMENT REPAIRER [address] [place] [address] [facility] [address] [place] [address] Referral ID Status Reason Start Date Expiration Date V isits Requested Visits Authorized [id number] Closed Auto-Generate d Referral 07/28/2022 08/27/2023 1 1 [facility] for referral (narrative)* Diagnostic Procedure Only (Routine) - Pending Review Specialty Diagnoses / Procedures Referred By Contac t Referred To Contact [facility] Diagnoses Encounter for screening mammogram for malignant neoplasm of breast Procedures MADISON SCREENING SCREENING MAMMOGRAPHY BI 2-VIEW BREAST INC CAD [facility] APRN.PANEL INSTRUMENT REPAIRER [address] [place] [address] [facility] [address] [place] [address] Referral ID Status Reason Start Date Expiration Date Visits Requested Visits Authorized [id number] Pending Review Auto-Generat ed Referral 3 08/30/2024 1 1 [facility] for referral (narrative)* Diagnostic Procedure Only (Routine) - Closed Specialty Diagnoses / Procedures Referred By Contac t Referred To Contact XR IMAGING Diagnoses Right ankle instability Procedures XR ANKLE GENERAL 3V AP/LAT/OBL RIGHT RADEX ANKLE COMPLETE MINIMUM 3 VIEWS Griselda Lema APRN.PANEL INSTRUMENT REPAIRER [address] [place] [address] [place] [address] Referral ID Status Reason Start Date Expiration Date V isits Requested Visits Authorized [id number] Closed Auto-Generate d Referral 04/10/2023 05/09/2024 1 1 * Diagnostic Procedure Only (Routine) - Closed Specialty Diagnoses / Procedures Referred By Contac t Referred To Contact XR IMAGING Diagnoses Tenderness of right hip Right thigh pain Procedures XR HIP GENERAL 3V PELV/AP/LAT RIGHT RADEX HIP UNILATERAL WITH PELVIS 2-3 VIEWS Griselda Lema APRN.PANEL INSTRUMENT REPAIRER [address] [place] [address] [place] [address] Referral ID Status Reason Start Date Expiration Date V isits Requested Visits Authorized [id number] Closed Auto-Generate d Referral 04/10/2023 05/09/2024 1 1 [facility] for referral (narrative)* Diagnostic Procedure Only (Routine) - Authorized Specialty Diagnoses / Procedures Referred By Contac t Referred To Contact [facility] Diagnoses Encounter for screening mammogram for breast cancer Procedures MADISON SCREENING SCREENING MAMMOGRAPHY BI 2-VIEW BREAST INC Darin Bazzi MD [address] [place] [address] [facility] [address] [place] [address] Referral ID Status Reason Start Date Expiration Date Visits Requested Visits Authorized [id number] Authorized Auto-Generat ed Referral 09/05/2025 1 1 [facility] for referral (narrative)* Diagnostic Procedure Only (Routine) - Closed Specialty Diagnoses / Procedures Referred By Contac t Referred To Contact [facility] Diagnoses Encounter for screening mammogram for breast cancer Procedures MADISON SCREENING SCREENING MAMMOGRAPHY BI 2-VIEW BREAST INC CAD Darin Alonzo MD [address] [place] [address] [facility] [address] [place] [address] Referral ID Status Reason Start Date Expiration Date V isits Requested Visits Authorized [id number] Closed Auto-Generate d Referral 08/06/2024 09/05/2025 1 1 [facility] for visit Narrative* Diagnostic Procedure Only (Routine) - Closed Specialty Diagnoses / Procedures Referred By Contac t Referred To Contact [facility] Diagnoses Encounter for screening mammogram for malignant neoplasm of breast Procedures MADISON SCREENING SCREENING MAMMOGRAPHY BI 2-VIEW BREAST INC CAD Griselda Lema, OUTSOLE PARAFFINER.PANEL INSTRUMENT REPAIRER [address] [place] [address] [facility] [address] [place] [address] Referral ID Status Reason Start Date Expiration Date V isits Requested Visits Authorized [id number] Closed Auto-Generate d Referral 07/28/2022 08/27/2023 1 1 [facility] for visit Narrative* Diagnostic Procedure Only (Routine) - Closed Specialty Diagnoses / Procedures Referred By Contac t Referred To Contact XR IMAGING Diagnoses Right ankle instability Procedures XR ANKLE GENERAL 3V AP/LAT/OBL RIGHT RADEX ANKLE COMPLETE MINIMUM 3 VIEWS Griselda Lema, OUTSOLE PARAFFINER.PANEL INSTRUMENT REPAIRER [address] [place] [address] [place] [address] Referral ID Status Reason Start Date Expiration Date V isits Requested Visits Authorized [id number] Closed Auto-Generate d Referral 04/10/2023 05/09/2024 1 1 [facility] for visit Narrative* Diagnostic Procedure Only (Routine) - Closed Specialty Diagnoses / Procedures Referred By Contac t Referred To Contact [facility] Diagnoses Encounter for screening mammogram for breast cancer Procedures MADISON SCREENING SCREENING MAMMOGRAPHY BI 2-VIEW BREAST INC Darin Bazzi MD [address] [place] [address] [facility] [address] [place] [address] Referral ID Status Reason Start Date Expiration Date V isits Requested Visits Authorized [id number] Closed Auto-Generate d Referral 08/06/2024 09/05/2025 1 1 [facility] Summary Purpose Family History Relationship Condition Age at Onset Recorded Date/T farhad Not Specified Diabetes mellitus Unknown Hypertension Unknown Advance Directives Documents on File Type Date Recorded Patient Program Management Analyst Expl anation Advance Directive(s) 10/27/2017 10:28 AM Advance Directive(s) 10/19/2017 8:19 AM Advance Directive(s) 06/06/2007 12:00 AM Advance Directive Response Recorded Date/ Time Living Will Yes March 10, 2022 3:42pm Power of Housing Court Judge Yes March 10 3:42pm Name of Medical Power of Housing Court Judge Ambrocio-sean March 10, 2022 3:42pm Advance Directive Response Recorded Date/ Time Name of Medical Power of Housing Court Judge Ambrocio Leija March 10, 2022 5:11pm Living Will Yes March 10, 2022 5:11pm Power of Housing Court Judge Yes March 10 5:11pm Documents on File Type Date Recorded Patient Program Management Analyst Expl anation Advance Directive(s) 06/06/2007 Documents on File Type Date Recorded Patient Program Management Analyst Expl anation Advance Directive(s) 06/06/2007 Advance Directive Response Recorded Date/ Time Living Will Yes March 09, 2023 9:57am Power of Housing Court Judge Yes March 09 9:57am Chief Complaint and Reason for Visit Chief Complaint DIZZINESS Chief Complaint DIZZINESS Dizziness (cardiology) Dizziness (cardiology) Reason for Visit Carotid artery steno sis Nausea Vertigo Chief Complaint CAROTID STENOSIS Chief Complaint CAROTID STENOSIS 1 Y FU TYPE 2 DM Chief Complaint CAROTID STENOSIS 1 Y FU TYPE 2 DM TYPE 2 DM Reason for Referral Specialty Diagnoses / Procedures Referred By Gilbert t Referred To Contact Orthopedics Diagnoses Tenderness of right hip Right thigh pain Right ankle instability Procedures CONSULT TO ORTHOPAEDICS OFFICE/OUTPATIENT NEW HIGH MDM 60-74 MINUTES Older, NAREN Villalobos.PANEL INSTRUMENT REPAIRER [address] [place] [address] Referral ID Status Reason Start Date Expiration Date Visits Requested Visits Authorized [id number] Authorized PCP Requested Referral 04/10/2023 04/09/2024 1 1 Specialty Diagnoses / Procedures Referred By Contac t Referred To Contact XR IMAGING Diagnoses Right ankle instability Procedures XR ANKLE GENERAL 3V AP/LAT/OBL RIGHT RADEX ANKLE COMPLETE MINIMUM 3 VIEWS Griselda Lema APRN.PANEL INSTRUMENT REPAIRER [address] [place] [address] X[facility] Imaging Referral ID Status Reason Start Date Expiration Date V isits Requested Visits Authorized [id number] Closed Auto-Generate d Referral 04/10/2023 05/09/2024 1 1 Specialty Diagnoses / Procedures Referred By Contac t Referred To Contact XR IMAGING Diagnoses Tenderness of right hip Right thigh pain Procedures XR HIP GENERAL 3V PELV/AP/LAT RIGHT RADEX HIP UNILATERAL WITH PELVIS 2-3 VIEWS Griselda Lema APRN.PANEL INSTRUMENT REPAIRER [address] [place] [address] X[facility] Imaging Referral ID Status Reason Start Date Expiration Date V isits Requested Visits Authorized [id number] Closed Auto-Generate d Referral 04/10/2023 05/09/2024 1 1 Specialty Diagnoses / Procedures Referred By Contac t Referred To Contact CT IMAGING Diagnoses 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) Chronic cough Procedures CT CHEST WO IVCON DIAGNOSTIC COMPUTED TOMOGRAPHY THORAX W/O CNTPamela Hein MD [address] [place] [address] [place] [address] Referral ID Status Reason Start Date Expiration Date Visits Requested Visits Authorized [id number] Authorized Auto-Generat ed Referral 11/28/2023 12/27/2024 1 1 Additional Source Comments INFORMATION SOURCE (unrecogn ized section and content) DATE CREATED AUTHOR 03/15/[address] [facility] DATE CREATED AUTHOR AUTHOR'S ORGANIZ ATION 11/07/2024 [facility] DATE CREATED AUTHOR AUTHOR'S ORGANIZ ATION 03/08/2025 [facility] Source Comments (unrecognize d section and content) In the event this informatio n is protected by the Federal Confidentiality of Alcohol and Drug Abuse Patient Records regulations: The Federal rules restrict any use of the information to criminally investigate or prosecute any alcohol or drug abuse patient.[facility] the event this information is protected by the Federal Confidentiality of Alcohol and Drug Abuse Patient Records regulations: The Federal rules restrict any use of the information to criminally investigate or prosecute any alcohol or drug abuse patient.[facility] the event this information is protected by the Federal Confidentiality of Alcohol and Drug Abuse Patient Records regulations: The Federal rules restrict any use of the information to criminally investigate or prosecute any alcohol or drug abuse patient.[facility] the event this information is protected by the Federal Confidentiality of Alcohol and Drug Abuse Patient Records regulations: The Federal rules restrict any use of the information to criminally investigate or prosecute any alcohol or drug abuse patient.[facility] the event this information is protected by the Federal Confidentiality of Alcohol and Drug Abuse Patient Records regulations: The Federal rules restrict any use of the information to criminally investigate or prosecute any alcohol or drug abuse patient.[facility] the event this information is protected by the Federal Confidentiality of Alcohol and Drug Abuse Patient Records regulations: The Federal rules restrict any use of the information to criminally investigate or prosecute any alcohol or drug abuse patient.[facility] the event this information is protected by the Federal Confidentiality of Alcohol and Drug Abuse Patient Records regulations: The Federal rules restrict any use of the information to criminally investigate or prosecute any alcohol or drug abuse patient.[facility] the event this information is protected by the Federal Confidentiality of Alcohol and Drug Abuse Patient Records regulations: The Federal rules restrict any use of the information to criminally investigate or prosecute any alcohol or drug abuse patient.[facility] the event this information is protected by the Federal Confidentiality of Alcohol and Drug Abuse Patient Records regulations: The Federal rules restrict any use of the information to criminally investigate or prosecute any alcohol or drug abuse patient.[facility] the event this information is protected by the Federal Confidentiality of Alcohol and Drug Abuse Patient Records regulations: The Federal rules restrict any use of the information to criminally investigate or prosecute any alcohol or drug abuse patient.[facility] the event this information is protected by the Federal Confidentiality of Alcohol and Drug Abuse Patient Records regulations: The Federal rules restrict any use of the information to criminally investigate or prosecute any alcohol or drug abuse patient.[facility] the event this information is protected by the Federal Confidentiality of Alcohol and Drug Abuse Patient Records regulations: The Federal rules restrict any use of the information to criminally investigate or prosecute any alcohol or drug abuse patient.[facility] the event this information is protected by the Federal Confidentiality of Alcohol and Drug Abuse Patient Records regulations: The Federal rules restrict any use of the information to criminally investigate or prosecute any alcohol or drug abuse patient.[facility] the event this information is protected by the Federal Confidentiality of Alcohol and Drug Abuse Patient Records regulations: The Federal rules restrict any use of the information to criminally investigate or prosecute any alcohol or drug abuse patient.[facility] the event this information is protected by the Federal Confidentiality of Alcohol and Drug Abuse Patient Records regulations: The Federal rules restrict any use of the information to criminally investigate or prosecute any alcohol or drug abuse patient.[facility] the event this information is protected by the Federal Confidentiality of Alcohol and Drug Abuse Patient Records regulations: The Federal rules restrict any use of the information to criminally investigate or prosecute any alcohol or drug abuse patient.[facility] the event this information is protected by the Federal Confidentiality of Alcohol and Drug Abuse Patient Records regulations: The Federal rules restrict any use of the information to criminally investigate or prosecute any alcohol or drug abuse patient.[facility] the event this information is protected by the Federal Confidentiality of Alcohol and Drug Abuse Patient Records regulations: The Federal rules restrict any use of the information to criminally investigate or prosecute any alcohol or drug abuse patient.[facility] the event this information is protected by the Federal Confidentiality of Alcohol and Drug Abuse Patient Records regulations: The Federal rules restrict any use of the information to criminally investigate or prosecute any alcohol or drug abuse patient.[facility] the event this information is protected by the Federal Confidentiality of Alcohol and Drug Abuse Patient Records regulations: The Federal rules restrict any use of the information to criminally investigate or prosecute any alcohol or drug abuse patient.[facility] the event this information is protected by the Federal Confidentiality of Alcohol and Drug Abuse Patient Records regulations: The Federal rules restrict any use of the information to criminally investigate or prosecute any alcohol or drug abuse patient.[facility] the event this information is protected by the Federal Confidentiality of Alcohol and Drug Abuse Patient Records regulations: The Federal rules restrict any use of the information to criminally investigate or prosecute any alcohol or drug abuse patient.[facility] the event this information is protected by the Federal Confidentiality of Alcohol and Drug Abuse Patient Records regulations: The Federal rules restrict any use of the information to criminally investigate or prosecute any alcohol or drug abuse patient.[facility] the event this information is protected by the Federal Confidentiality of Alcohol and Drug Abuse Patient Records regulations: The Federal rules restrict any use of the information to criminally investigate or prosecute any alcohol or drug abuse patient.[facility] the event this information is protected by the Federal Confidentiality of Alcohol and Drug Abuse Patient Records regulations: The Federal rules restrict any use of the information to criminally investigate or prosecute any alcohol or drug abuse patient.[facility] the event this information is protected by the Federal Confidentiality of Alcohol and Drug Abuse Patient Records regulations: The Federal rules restrict any use of the information to criminally investigate or prosecute any alcohol or drug abuse patient.[facility] the event this information is protected by the Federal Confidentiality of Alcohol and Drug Abuse Patient Records regulations: The Federal rules restrict any use of the information to criminally investigate or prosecute any alcohol or drug abuse patient.[facility] the event this information is protected by the Federal Confidentiality of Alcohol and Drug Abuse Patient Records regulations: The Federal rules restrict any use of the information to criminally investigate or prosecute any alcohol or drug abuse patient.[facility] the event this information is protected by the Federal Confidentiality of Alcohol and Drug Abuse Patient Records regulations: The Federal rules restrict any use of the information to criminally investigate or prosecute any alcohol or drug abuse patient.[facility] the event this information is protected by the Federal Confidentiality of Alcohol and Drug Abuse Patient Records regulations: The Federal rules restrict any use of the information to criminally investigate or prosecute any alcohol or drug abuse patient.[facility] the event this information is protected by the Federal Confidentiality of Alcohol and Drug Abuse Patient Records regulations: The Federal rules restrict any use of the information to criminally investigate or prosecute any alcohol or drug abuse patient.[facility] the event this information is protected by the Federal Confidentiality of Alcohol and Drug Abuse Patient Records regulations: The Federal rules restrict any use of the information to criminally investigate or prosecute any alcohol or drug abuse patient.[facility] the event this information is protected by the Federal Confidentiality of Alcohol and Drug Abuse Patient Records regulations: The Federal rules restrict any use of the information to criminally investigate or prosecute any alcohol or drug abuse patient.[facility] the event this information is protected by the Federal Confidentiality of Alcohol and Drug Abuse Patient Records regulations: The Federal rules restrict any use of the information to criminally investigate or prosecute any alcohol or drug abuse patient.[facility] the event this information is protected by the Federal Confidentiality of Alcohol and Drug Abuse Patient Records regulations: The Federal rules restrict any use of the information to criminally investigate or prosecute any alcohol or drug abuse patient.[facility]In the event this information is protected by the Federal Confidentiality of Alcohol and Drug Abuse Patient Records regulations: The Federal rules restrict any use of the information to criminally investigate or prosecute any alcohol or drug abuse patient.[facility] the event this information is protected by the Federal Confidentiality of Alcohol and Drug Abuse Patient Records regulations: The Federal rules restrict any use of the information to criminally investigate or prosecute any alcohol or drug abuse patient.[facility]In the event this information is protected by the Federal Confidentiality of Alcohol and Drug Abuse Patient Records regulations: The Federal rules restrict any use of the information to criminally investigate or prosecute any alcohol or drug abuse patient.[facility] HospitalIn the event this information is protected by the Federal Confidentiality of Alcohol and Drug Abuse Patient Records regulations: The Federal rules restrict any use of the information to criminally investigate or prosecute any alcohol or drug abuse patient.[facility] HospitalIn the event this information is protected by the Federal Confidentiality of Alcohol and Drug Abuse Patient Records regulations: The Federal rules restrict any use of the information to criminally investigate or prosecute any alcohol or drug abuse patient.[facility] HospitalIn the event this information is protected by the Federal Confidentiality of Alcohol and Drug Abuse Patient Records regulations: The Federal rules restrict any use of the information to criminally investigate or prosecute any alcohol or drug abuse patient.[facility] HospitalIn the event this information is protected by the Federal Confidentiality of Alcohol and Drug Abuse Patient Records regulations: The Federal rules restrict any use of the information to criminally investigate or prosecute any alcohol or drug abuse patient.[facility] HospitalIn the event this information is protected by the Federal Confidentiality of Alcohol and Drug Abuse Patient Records regulations: The Federal rules restrict any use of the information to criminally investigate or prosecute any alcohol or drug abuse patient.[facility] HospitalIn the event this information is protected by the Federal Confidentiality of Alcohol and Drug Abuse Patient Records regulations: The Federal rules restrict any use of the information to criminally investigate or prosecute any alcohol or drug abuse patient.[facility] HospitalIn the event this information is protected by the Federal Confidentiality of Alcohol and Drug Abuse Patient Records regulations: The Federal rules restrict any use of the information to criminally investigate or prosecute any alcohol or drug abuse patient.[facility] HospitalIn the event this information is protected by the Federal Confidentiality of Alcohol and Drug Abuse Patient Records regulations: The Federal rules restrict any use of the information to criminally investigate or prosecute any alcohol or drug abuse patient.[facility] HospitalIn the event this information is protected by the Federal Confidentiality of Alcohol and Drug Abuse Patient Records regulations: The Federal rules restrict any use of the information to criminally investigate or prosecute any alcohol or drug abuse patient.[facility] HospitalIn the event this information is protected by the Federal Confidentiality of Alcohol and Drug Abuse Patient Records regulations: The Federal rules restrict any use of the information to criminally investigate or prosecute any alcohol or drug abuse patient.[facility] HospitalIn the event this information is protected by the Federal Confidentiality of Alcohol and Drug Abuse Patient Records regulations: The Federal rules restrict any use of the information to criminally investigate or prosecute any alcohol or drug abuse patient.[facility] HospitalIn the event this information is protected by the Federal Confidentiality of Alcohol and Drug Abuse Patient Records regulations: The Federal rules restrict any use of the information to criminally investigate or prosecute any alcohol or drug abuse patient.[facility] HospitalIn the event this information is protected by the Federal Confidentiality of Alcohol and Drug Abuse Patient Records regulations: The Federal rules restrict any use of the information to criminally investigate or prosecute any alcohol or drug abuse patient.[facility] HospitalIn the event this information is protected by the Federal Confidentiality of Alcohol and Drug Abuse Patient Records regulations: The Federal rules restrict any use of the information to criminally investigate or prosecute any alcohol or drug abuse patient.[facility] HospitalIn the event this information is protected by the Federal Confidentiality of Alcohol and Drug Abuse Patient Records regulations: The Federal rules restrict any use of the information to criminally investigate or prosecute any alcohol or drug abuse patient.[facility] HospitalIn the event this information is protected by the Federal Confidentiality of Alcohol and Drug Abuse Patient Records regulations: The Federal rules restrict any use of the information to criminally investigate or prosecute any alcohol or drug abuse patient.[facility] HospitalIn the event this information is protected by the Federal Confidentiality of Alcohol and Drug Abuse Patient Records regulations: The Federal rules restrict any use of the information to criminally investigate or prosecute any alcohol or drug abuse patient.[facility] HospitalIn the event this information is protected by the Federal Confidentiality of Alcohol and Drug Abuse Patient Records regulations: The Federal rules restrict any use of the information to criminally investigate or prosecute any alcohol or drug abuse patient.[facility] HospitalIn the event this information is protected by the Federal Confidentiality of Alcohol and Drug Abuse Patient Records regulations: The Federal rules restrict any use of the information to criminally investigate or prosecute any alcohol or drug abuse patient.[facility] HospitalIn the event this information is protected by the Federal Confidentiality of Alcohol and Drug Abuse Patient Records regulations: The Federal rules restrict any use of the information to criminally investigate or prosecute any alcohol or drug abuse patient.[facility] HospitalIn the event this information is protected by the Federal Confidentiality of Alcohol and Drug Abuse Patient Records regulations: The Federal rules restrict any use of the information to criminally investigate or prosecute any alcohol or drug abuse patient.[facility] HospitalIn the event this information is protected by the Federal Confidentiality of Alcohol and Drug Abuse Patient Records regulations: The Federal rules restrict any use of the information to criminally investigate or prosecute any alcohol or drug abuse patient.[facility] HospitalIn the event this information is protected by the Federal Confidentiality of Alcohol and Drug Abuse Patient Records regulations: The Federal rules restrict any use of the information to criminally investigate or prosecute any alcohol or drug abuse patient.[facility] HospitalIn the event this information is protected by the Federal Confidentiality of Alcohol and Drug Abuse Patient Records regulations: The Federal rules restrict any use of the information to criminally investigate or prosecute any alcohol or drug abuse patient.[facility] HospitalIn the event this information is protected by the Federal Confidentiality of Alcohol and Drug Abuse Patient Records regulations: The Federal rules restrict any use of the information to criminally investigate or prosecute any alcohol or drug abuse patient.[facility] HospitalIn the event this information is protected by the Federal Confidentiality of Alcohol and Drug Abuse Patient Records regulations: The Federal rules restrict any use of the information to criminally investigate or prosecute any alcohol or drug abuse patient.[facility] HospitalIn the event this information is protected by the Federal Confidentiality of Alcohol and Drug Abuse Patient Records regulations: The Federal rules restrict any use of the information to criminally investigate or prosecute any alcohol or drug abuse patient.[facility] HospitalIn the event this information is protected by the Federal Confidentiality of Alcohol and Drug Abuse Patient Records regulations: The Federal rules restrict any use of the information to criminally investigate or prosecute any alcohol or drug abuse patient.[facility] HospitalIn the event this information is protected by the Federal Confidentiality of Alcohol and Drug Abuse Patient Records regulations: The Federal rules restrict any use of the information to criminally investigate or prosecute any alcohol or drug abuse patient.[facility] HospitalIn the event this information is protected by the Federal Confidentiality of Alcohol and Drug Abuse Patient Records regulations: The Federal rules restrict any use of the information to criminally investigate or prosecute any alcohol or drug abuse patient.[facility] HospitalIn the event this information is protected by the Federal Confidentiality of Alcohol and Drug Abuse Patient Records regulations: The Federal rules restrict any use of the information to criminally investigate or prosecute any alcohol or drug abuse patient.[facility] HospitalIn the event this information is protected by the Federal Confidentiality of Alcohol and Drug Abuse Patient Records regulations: The Federal rules restrict any use of the information to criminally investigate or prosecute any alcohol or drug abuse patient.[facility] HospitalIn the event this information is protected by the Federal Confidentiality of Alcohol and Drug Abuse Patient Records regulations: The Federal rules restrict any use of the information to criminally investigate or prosecute any alcohol or drug abuse patient.[facility] HospitalIn the event this information is protected by the Federal Confidentiality of Alcohol and Drug Abuse Patient Records regulations: The Federal rules restrict any use of the information to criminally investigate or prosecute any alcohol or drug abuse patient.[facility] HospitalIn the event this information is protected by the Federal Confidentiality of Alcohol and Drug Abuse Patient Records regulations: The Federal rules restrict any use of the information to criminally investigate or prosecute any alcohol or drug abuse patient.[facility] HospitalIn the event this information is protected by the Federal Confidentiality of Alcohol and Drug Abuse Patient Records regulations: The Federal rules restrict any use of the information to criminally investigate or prosecute any alcohol or drug abuse patient.[facility] HospitalIn the event this information is protected by the Federal Confidentiality of Alcohol and Drug Abuse Patient Records regulations: The Federal rules restrict any use of the information to criminally investigate or prosecute any alcohol or drug abuse patient.[facility] HospitalIn the event this information is protected by the Federal Confidentiality of Alcohol and Drug Abuse Patient Records regulations: The Federal rules restrict any use of the information to criminally investigate or prosecute any alcohol or drug abuse patient.[facility] HospitalIn the event this information is protected by the Federal Confidentiality of Alcohol and Drug Abuse Patient Records regulations: The Federal rules restrict any use of the information to criminally investigate or prosecute any alcohol or drug abuse patient.[facility] HospitalIn the event this information is protected by the Federal Confidentiality of Alcohol and Drug Abuse Patient Records regulations: The Federal rules restrict any use of the information to criminally investigate or prosecute any alcohol or drug abuse patient.[facility] HospitalIn the event this information is protected by the Federal Confidentiality of Alcohol and Drug Abuse Patient Records regulations: The Federal rules restrict any use of the information to criminally investigate or prosecute any alcohol or drug abuse patient.[facility] HospitalIn the event this information is protected by the Federal Confidentiality of Alcohol and Drug Abuse Patient Records regulations: The Federal rules restrict any use of the information to criminally investigate or prosecute any alcohol or drug abuse patient.[facility] HospitalIn the event this information is protected by the Federal Confidentiality of Alcohol and Drug Abuse Patient Records regulations: The Federal rules restrict any use of the information to criminally investigate or prosecute any alcohol or drug abuse patient.[facility] HospitalIn the event this information is protected by the Federal Confidentiality of Alcohol and Drug Abuse Patient Records regulations: The Federal rules restrict any use of the information to criminally investigate or prosecute any alcohol or drug abuse patient.[facility] HospitalIn the event this information is protected by the Federal Confidentiality of Alcohol and Drug Abuse Patient Records regulations: The Federal rules restrict any use of the information to criminally investigate or prosecute any alcohol or drug abuse patient.[facility] HospitalIn the event this information is protected by the Federal Confidentiality of Alcohol and Drug Abuse Patient Records regulations: The Federal rules restrict any use of the information to criminally investigate or prosecute any alcohol or drug abuse patient.[facility] HospitalIn the event this information is protected by the Federal Confidentiality of Alcohol and Drug Abuse Patient Records regulations: The Federal rules restrict any use of the information to criminally investigate or prosecute any alcohol or drug abuse patient.[facility] HospitalIn the event this information is protected by the Federal Confidentiality of Alcohol and Drug Abuse Patient Records regulations: The Federal rules restrict any use of the information to criminally investigate or prosecute any alcohol or drug abuse patient.[facility] HospitalIn the event this information is protected by the Federal Confidentiality of Alcohol and Drug Abuse Patient Records regulations: The Federal rules restrict any use of the information to criminally investigate or prosecute any alcohol or drug abuse patient.[facility] HospitalIn the event this information is protected by the Federal Confidentiality of Alcohol and Drug Abuse Patient Records regulations: The Federal rules restrict any use of the information to criminally investigate or prosecute any alcohol or drug abuse patient.[facility] HospitalIn the event this information is protected by the Federal Confidentiality of Alcohol and Drug Abuse Patient Records regulations: The Federal rules restrict any use of the information to criminally investigate or prosecute any alcohol or drug abuse patient.[facility] HospitalIn the event this information is protected by the Federal Confidentiality of Alcohol and Drug Abuse Patient Records regulations: The Federal rules restrict any use of the information to criminally investigate or prosecute any alcohol or drug abuse patient.[facility] HospitalIn the event this information is protected by the Federal Confidentiality of Alcohol and Drug Abuse Patient Records regulations: The Federal rules restrict any use of the information to criminally investigate or prosecute any alcohol or drug abuse patient.[facility] HospitalIn the event this information is protected by the Federal Confidentiality of Alcohol and Drug Abuse Patient Records regulations: The Federal rules restrict any use of the information to criminally investigate or prosecute any alcohol or drug abuse patient.[facility]In the event this information is protected by the Federal Confidentiality of Alcohol and Drug Abuse Patient Records regulations: The Federal rules restrict any use of the information to criminally investigate or prosecute any alcohol or drug abuse patient.[facility] HospitalIn the event this information is protected by the Federal Confidentiality of Alcohol and Drug Abuse Patient Records regulations: The Federal rules restrict any use of the information to criminally investigate or prosecute any alcohol or drug abuse patient.[facility] HospitalIn the event this information is protected by the Federal Confidentiality of Alcohol and Drug Abuse Patient Records regulations: The Federal rules restrict any use of the information to criminally investigate or prosecute any alcohol or drug abuse patient.[facility]In the event this information is protected by the Federal Confidentiality of Alcohol and Drug Abuse Patient Records regulations: The Federal rules restrict any use of the information to criminally investigate or prosecute any alcohol or drug abuse patient.[facility]In the event this information is protected by the Federal Confidentiality of Alcohol and Drug Abuse Patient Records regulations: The Federal rules restrict any use of the information to criminally investigate or prosecute any alcohol or drug abuse patient.[facility] HospitalIn the event this information is protected by the Federal Confidentiality of Alcohol and Drug Abuse Patient Records regulations: The Federal rules restrict any use of the information to criminally investigate or prosecute any alcohol or drug abuse patient.[facility]In the event this information is protected by the Federal Confidentiality of Alcohol and Drug Abuse Patient Records regulations: The Federal rules restrict any use of the information to criminally investigate or prosecute any alcohol or drug abuse patient.[facility] HospitalIn the event this information is protected by the Federal Confidentiality of Alcohol and Drug Abuse Patient Records regulations: The Federal rules restrict any use of the information to criminally investigate or prosecute any alcohol or drug abuse patient.[facility]In the event this information is protected by the Federal Confidentiality of Alcohol and Drug Abuse Patient Records regulations: The Federal rules restrict any use of the information to criminally investigate or prosecute any alcohol or drug abuse patient.[facility]In the event this information is protected by the Federal Confidentiality of Alcohol and Drug Abuse Patient Records regulations: The Federal rules restrict any use of the information to criminally investigate or prosecute any alcohol or drug abuse patient.[facility]In the event this information is protected by the Federal Confidentiality of Alcohol and Drug Abuse Patient Records regulations: The Federal rules restrict any use of the information to criminally investigate or prosecute any alcohol or drug abuse patient.[facility] Reason for Visit (unrecogniz ed section and content) Reason Onset Date Comments Refill Request 12/10/2021 Reason Comments Headache SARAH, nausea dn dizzy x 1 hour Reason Comments Patient Update Reason Comments Established Patient [facility] hospital follow up-dizziness/nausea Reason Comments Results Reason Comments Refill Request Reason Onset Date Comments Refill Request 03/15/2022 Reason Comments F/U 6 months and cough issue sinc e March Reason Comments Medication Problem Reason Onset Date Comments Refill Request 04/22/2022 Reason Comments New Patient Cough Reason Comments Cough Chest congestion x 1 week Reason Comments Recheck 1 week cough follow up Reason Comments Established Patient follicular bronchiti s Reason Onset Date Comments Refill Request 2022 Reason Comments Established Patient 4 week follow up cou gh Reason Onset Date Comments Refill Request 07/19/2022 Reason Comments Cough Reason Comments Orders Reason Comments F/U Diabetes 3 Month Reason Onset Date Comments Refill Request 11/09/2022 Reason Comments Spirometry Specialty Diagnoses / Procedures Referred By Contac t Referred To [facility] Diagnoses Follicular bronchiolitis (HCC) Procedures SPIROMETRY WITH DILATOR IF OBSTRUCTED BRNCDILAT RSPSE SPMTRY PRE&POST-BRNCDILAT ADMPamela Gavin MD [address] [place] [address] [facility] [address] [place] [id number] Referral ID Status Reason Start Date Expiration Date V isits Requested Visits Authorized [id number] Closed Auto-Generate d Referral 05/09/2022 06/08/2023 1 1 Reason Comments Established Patient 6 month follow up Reason Onset Date Comments Refill Request 12/13/2022 Reason Onset Date Comments Refill Request 02/23/2023 Reason Comments Blood Pressure Reason Comments Same Day Appointment elevated blood pres sure Reason Comments Recheck BP follow up Reason Onset Date Comments Refill Request 04/18/2023 Reason Comments Recheck 3 month DM follow up Reason Comments Recheck Reason Comments Mammogram order Reason Comments Established Patient Reason Onset Date Comments Refill Request 12/04/[address] Specialty Diagnoses / [facility] Diagnoses 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) Chronic cough Procedures CT CHEST WO IVCON DIAGNOSTIC COMPUTED TOMOGRAPHY THORAX W/O CNTRST Pamela Aranda MD [address] [place] [address] [place] [address] Referral ID Status Reason Start Date Expiration Date V isits Requested Visits Authorized [id number] Closed Auto-Generate d Referral 11/28/2023 12/27/2024 1 1 Reason Comments Laceration Hit arm on car door when getting out x 1 week, area on Left elbow, wound is scabbed over but is now seeping x couple days, painful Reason Onset Date Comments Refill Request 05/16/2024 Reason Comments Med Change Request Reason Comments Patient Update Diabetic shoes Reason Comments Recheck 3 month follow up Reason Comments Orders Mammogram Reason Comments Patient Update Medication change Reason Onset Date Comments Refill Request 11/20/2024 Reason Onset Date Comments Results 01/13/2025 Reason Comments Patient Question Leg cramps / asking if a higher dose should me called in? Reason Comments Recheck 4 week follow up Reason Comments Patient Question Care Teams (unrecognized sec tion and content) Batch Freezer Relationship Specialty Start Date End Date Darin Alonzo MD [address] [facility] [place] [address] PCP - General Internal Medicine 05/18/16 Batch Freezer Relationship Specialty Start Date End Date Darin Alonzo MD [address] [facility] [place] [address] PCP - General Internal Medicine 05/18/16 Batch Freezer Relationship Specialty Start Date End Date Darin Alonzo MD [address] [facility] [place] [address] PCP - General Internal Medicine 05/18/16 Batch Freezer Relationship Specialty Start Date End Date Darin Alonzo MD [address] [facility] [place] [address] PCP - General Internal Medicine 05/18/16 Batch Freezer Relationship Specialty Start Date End Date Darin Alonzo MD [address] [facility] [place] [address] PCP - General Internal Medicine 05/18/16 Batch Freezer Relationship Specialty Start Date End Date Darin Alonzo MD [address] [facility] [place] [address] PCP - General Internal Medicine 05/18/16 Batch Freezer Relationship Specialty Start Date End Date Darin Alonzo MD [address] [facility] [place] [address] PCP - General Internal Medicine 05/18/16 Batch Freezer Relationship Specialty Start Date End Date Darin Alonzo MD [address] [place] [address] PCP - General Internal Medicine 05/18/16 Batch Freezer Relationship Specialty Start Date End Date Darin Alonzo MD [address] [place] [address] PCP - General Internal Medicine 05/18/16 Batch Freezer Relationship Specialty Start Date End Date Darin Alonzo MD [address] [place] [address] PCP - General Internal Medicine 05/18/16 Batch Freezer Relationship Specialty Start Date End Date Darin Alonoz MD [address] [place] [address] PCP - General Internal Medicine 05/18/16 Batch Freezer Relationship Specialty Start Date End Date Darin Alonzo MD [address] [place] [address] PCP - General Internal Medicine 05/18/16 Batch Freezer Relationship Specialty Start Date End Date Darin Alonzo MD [address] [place] [address] PCP - General Internal Medicine 05/18/16 Batch Freezer Relationship Specialty Start Date End Date Darin Alonzo MD [address] [place] [address] PCP - General Internal Medicine 05/18/16 Batch Freezer Relationship Specialty Start Date End Date Darin Alonzo MD [address] [place] [address] PCP - General Internal Medicine 05/18/16 Batch Freezer Relationship Specialty Start Date End Date Darin Alonzo MD [address] [place] [address] PCP - General Internal Medicine 05/18/16 Batch Freezer Relationship Specialty Start Date End Date Darin Alonzo MD [address] [facility] [place] [address] PCP - General Internal Medicine 05/18/16 Batch Freezer Relationship Specialty Start Date End Date Darin Alonzo MD [address] [facility] [place] [address] PCP - General Internal Medicine 05/18/16 Batch Freezer Relationship Specialty Start Date End Date Darin Alonzo MD [address] [facility] [place] [address] PCP - General Internal Medicine 05/18/16 Batch Freezer Relationship Specialty Start Date End Date Darin Alonzo MD [address] [facility] [place] [address] PCP - General Internal Medicine 05/18/16 Team Status: Active Member Role Status Dates Dr. Darin Alonzo MD Family Provider Active Dr. Darin Alonzo MD Primary Care Provider Active Team Status: Active Member Role Status Dates Dr. Darin Alonzo MD Primary Care Provider Active Dr. Rogerio Brower MD Attending Provider Active Team Status: Inactive Member Role Status Dates Dr. Darin Alonzo MD Primary Care Provider Active Dr. Richi Degroot MD Attending Provider, Referring Pro vider Active Batch Freezer Relationship Specialty Start Date End Date Darin Alonzo MD [address] [facility] [place] [address] PCP - General Internal Medicine 05/18/16 Batch Freezer Relationship Specialty Start Date End Date Darin Alonzo MD [address] [facility] [place] [address] PCP - General Internal Medicine 05/18/16 Team Status: Inactive Member Role Status Dates Dr. Darin Alonzo MD Primary Care Provider, Referring Provider Active DANIEL Valladares Attending Provider Active Team Status: Inactive Member Role Status Dates Dr. Darni Alonzo MD Primary Care Provider Active GRISELDA LEMA , AIRPLANE FLIGHT ATTENDANT-C Attending Provider, Referring Provide r Active Batch Freezer Relationship Specialty Start Date End Date Darin Alonzo MD [address] [facility] [place] [address] PCP - General Internal Medicine 05/18/16 Batch Freezer Relationship Specialty Start Date End Date Darin Alonzo MD [address] [facility] [place] [address] PCP - General Internal Medicine 05/18/16 Batch Freezer Relationship Specialty Start Date End Date Darin Alonzo MD [address] [facility] [place] [address] PCP - General Internal Medicine 05/18/16 Team Status: Inactive Member Role Status Dates Dr. Darin Alonzo MD Primary Care Provider, Referring Provider Active DANIEL Neff Attending Provider Active Batch Freezer Relationship Specialty Start Date End Date Darin Alonzo MD [address] [facility] [place] [address] PCP - General Internal Medicine 05/18/16 Batch Freezer Relationship Specialty Start Date End Date Darin Alonzo MD [address] [facility] [place] [address] PCP - General Internal Medicine 05/18/16 Batch Freezer Relationship Specialty Start Date End Date Darin Alonzo MD [address] [facility] [place] [address] PCP - General Internal Medicine 05/18/16 Batch Freezer Relationship Specialty Start Date End Date Darin Alonzo MD [address] [facility] [place] [address] PCP - General Internal Medicine 05/18/16 Batch Freezer Relationship Specialty Start Date End Date Darin Alonzo MD [address] [place] [address] PCP - General Internal Medicine 05/18/16 Batch Freezer Relationship Specialty Start Date End Date Darin Alonzo MD [address] [place] [address] PCP - General Internal Medicine 05/18/16 Batch Freezer Relationship Specialty Start Date End Date Darin Alonzo MD [address] [place] [address] PCP - General Internal Medicine 05/18/16 Batch Freezer Relationship Specialty Start Date End Date Darin Alonzo MD [address] [place] [address] PCP - General Internal Medicine 05/18/16 Batch Freezer Relationship Specialty Start Date End Date Darin Alonzo MD [address] [place] [address] PCP - General Internal Medicine 05/18/16 Batch Freezer Relationship Specialty Start Date End Date Darin Alonzo MD [address] [place] [address] PCP - General Internal Medicine 05/18/16 Batch Freezer Relationship Specialty Start Date End Date Darin Alonzo MD [address] [place] [address] PCP - General Internal Medicine 05/18/16 Batch Freezer Relationship Specialty Start Date End Date Darin Alonzo MD [address] [place] [address] PCP - General Internal Medicine 05/18/16 Batch Freezer Relationship Specialty Start Date End Date Darin Alonzo MD [address] [place] [address] PCP - General Internal Medicine 05/18/16 Batch Freezer Relationship Specialty Start Date End Date Darin Alonzo MD [address] [place] [address] PCP - General Internal Medicine 05/18/16 Batch Freezer Relationship Specialty Start Date End Date Darin Alonzo MD [address] [place] [address] PCP - General Internal Medicine 05/18/16 Batch Freezer Relationship Specialty Start Date End Date Darin Alonzo MD [address] [place] [address] PCP - General Internal Medicine 05/18/16 Batch Freezer Relationship Specialty Start Date End Date Darin Alonzo MD [address] [place] [address] PCP - General Internal Medicine 05/18/16 Batch Freezer Relationship Specialty Start Date End Date Darin Alonzo MD [address] [place] [address] PCP - General Internal Medicine 05/18/16 Batch Freezer Relationship Specialty Start Date End Date Darin Alonzo MD [address] [place] [address] PCP - General Internal Medicine 05/18/16 Batch Freezer Relationship Specialty Start Date End Date Darin Alonzo MD [address] [place] [address] PCP - General Internal Medicine 05/18/16 Arturo Winter PA-C [address] [place] [address] Student Services Dean Family Medicine 08/18/24 Griselda Lema APRN.PANEL INSTRUMENT REPAIRER [address] [place] [address] Student Services Dean Internal Medicine 08/18/24 Lorene Mendez PA-C [address] [place] [address] Student Services Dean Family Medicine 08/18/24 Batch Freezer Relationship Specialty Start Date End Date Darin Alonzo MD [address] [place] [address] PCP - General Internal Medicine 05/18/16 Arturo Winter PA-C [address] [place] [address] Student Services Dean Family Medicine 08/18/24 Griselda Lema, NAREN.PANEL INSTRUMENT REPAIRER [address] [place] [address] Student Services Dean Internal Medicine 08/18/24 Lorene Mendez PA-C [address] [place] [address] Student Services Dean Family Medicine 08/18/24 Batch Freezer Relationship Specialty Start Date End Date Darin Alonzo MD [address] [place] [address] PCP - General Internal Medicine 05/18/16 Arturo Winter PA-C [address] [place] [address] Student Services Dean Family [facility] 08/18/24 Griselda Lema APRN.PANEL INSTRUMENT REPAIRER [address] [place] [address] Student Services Dean Internal Medicine 08/18/24 Lorene Mendez PA-C [address] [place] [address] [facility] Batch Freezer Relationship Specialty Start Date End Date Darin Alonzo MD [address] [place] [address] PCP - General Internal Medicine 05/18/16 Arturo Winter PA-C [address] [place] [address] Student Services Dean Family [facility] 08/18/24 Griselda Lema APRN.PANEL INSTRUMENT REPAIRER [address] [place] [address] Student Services Dean Internal Medicine 08/18/24 Lorene Mendez PA-C [address] [place] [address] Student Services Dean Family [facility] 08/18/24 Batch Freezer Relationship Specialty Start Date End Date Darin Alonzo MD [address] [place] [address] PCP - General Internal Medicine 05/18/16 Arturo Winter PA-C [address] [place] [address] Student Services Dean Family Medicine 08/18/24 Griselda Lema APRN.PANEL INSTRUMENT REPAIRER [address] [place] [address] Student Services Dean Internal Medicine 08/18/24 Lorene Mendez PA-C [address] [place] [address] Student Services Dean Family Medicine 08/18/24 Batch Freezer Relationship Specialty Start Date End Date Darin Alonzo MD [address] [place] [address] PCP - General Internal Medicine 05/18/16 Arturo Winter PA-C [address] [place] [address] Student Services Dean Family Medicine 08/18/24 Griselda Lema APRN.PANEL INSTRUMENT REPAIRER [address] [place] [address] Student Services Dean Internal Medicine 08/18/24 Lorene Mendez PA-C [address] [place] [address] Student Services Dean Family [facility] 08/18/24 Batch Freezer Relationship Specialty Start Date End Date Darin Alonzo MD [address] [place] [address] PCP - General Internal Medicine 05/18/16 Arturo Winter PA-C [address] [place] [address] Student Services Dean Family Medicine 08/18/24 Griselda Lema APRN.PANEL INSTRUMENT REPAIRER [address] [place] [address] Student Services Dean Internal Medicine 08/18/24 Lorene Mendez PA-C [address] [facility] [place] [address] Student Services Dean Family Medicine 08/18/24 Batch Freezer Relationship Specialty Start Date End Date Darin Alonzo MD [address] [facility] [place] [address] PCP - General Internal Medicine 05/18/16 Griselda Lema APRN.PANEL INSTRUMENT REPAIRER [address] [place] [address] Student Services Dean Internal Medicine 08/18/24 Batch Freezer Relationship Specialty Start Date End Date Darin Alonzo MD [address] [facility] [place] [address] PCP - General Internal Medicine 05/18/16 Griselda Lema APRN.PANEL INSTRUMENT REPAIRER [address] [place] [address] Student Services Dean Internal Medicine 08/18/24 Batch Freezer Relationship Specialty Start Date End Date Darin Alonzo MD [address] [facility] [place] [address] PCP - General Internal Medicine 05/18/16 Grsielda Lema APRN.PANEL INSTRUMENT REPAIRER [address] [place] [address] Student Services Dean Internal Medicine 08/18/24 Batch Freezer Relationship Specialty Start Date End Date Darin Alonzo MD [address] [facility] [place] [address] PCP - General Internal Medicine 05/18/16 Griselda Lema APRN.PANEL INSTRUMENT REPAIRER [address] [place] [address] Student Services Dean Internal Medicine 08/18/24 Batch Freezer Relationship Specialty Start Date End Date Darin Alonzo MD [address] [facility] [place] [address] PCP - General Internal Medicine 05/18/16 Griselda Lema APRN.PANEL INSTRUMENT REPAIRER [address] [place] [address] Student Services Dean Internal Medicine 08/18/24 Batch Freezer Relationship Specialty Start Date End Date Darin Alonzo MD [address] [facility] [place] [address] PCP - General Internal Medicine 05/18/16 Griselda Lema APRN.PANEL INSTRUMENT REPAIRER [address] [place] [address] Student Services Dean Internal Medicine 08/18/24 Batch Freezer Relationship Specialty Start Date End Date Darin Alonzo MD [address] [facility] [place] [address] PCP - General Internal Medicine 05/18/16 Griselda Lema APRN.PANEL INSTRUMENT REPAIRER [address] [place] [address] Student Services Dean Internal Medicine 08/18/24 Batch Freezer Relationship Specialty Start Date End Date Darin Alonzo MD [address] [facility] [place] [address] PCP - General Internal Medicine 05/18/16 Griselda Lema APRN.PANEL INSTRUMENT REPAIRER [address] [place] [address] Student Services Dean Internal Medicine 08/18/24 Batch Freezer Relationship Specialty Start Date End Date Darin Alonzo MD [address] [facility] [place] [address] PCP - General Internal Medicine 05/18/16 Griselda Lema APRN.PANEL INSTRUMENT REPAIRER [address] [place] [address] Student Services Dean Internal Medicine 08/18/24 Batch Freezer Relationship Specialty Start Date End Date Darin Alonzo MD [address] [place] [address] PCP - General Internal Medicine 05/18/16 Griselda Lema APRN.PANEL INSTRUMENT REPAIRER [address] [place] [address] Student Services Dean Internal Medicine 08/18/24 Batch Freezer Relationship Specialty Start Date End Date Darin Alonzo MD [address] [place] [address] PCP - General Internal Medicine 05/18/16 Griselda Lema APRN.PANEL INSTRUMENT REPAIRER [address] [place] [address] [facility] Internal Medicine 08/18/24 Goals (unrecognized section and content) Goals may be documented in a n alternate sectionGoals may be documented in an alternate sectionGoals may be documented in an alternate sectionGoals may be documented in an alternate sectionGoals may be documented in an alternate section FOR RECORDS PERTAINING TO PATIENTS WHO ARE OR HAVE BEEN ENROLLED IN A CHEMICAL DEPENDENCY/SUBSTANCEABUSE PROGRAM, SOME INFORMATION MAY BE OMITTED. This clinical summary was aggregated from multiple sources. Caution should be exercised in using it in the provision of clinical care. This summary normalizes information from multiple sources, and as a consequence, information in this document may materially change the coding, format and clinical context of patient data. In addition, data may be omitted in some cases. CLINICAL DECISIONS SHOULD BE BASED ON THE PRIMARY CLINICAL RECORDS. [facility] [employer] [facility]. provides no warranty or guarantee of the accuracy or completeness of information in this document.
[2025-04-12] MEDS: 0.9% Normal Saline (500mL Bag) 500 ML 999 ML IV (22:24)
[2025-04-12 22:35] VITALS: BP 135/60; PULSE 79; RESP 15; O2SAT 98
[2025-04-12 23:00] VITALS: BP 132/66; PULSE 81; RESP 13; O2SAT 99
[2025-04-12 23:13] LABS: Hematocrit 35.3 % (37-47); Hemoglobin 11.7 g/dL (12.0-15.0); Immature Granulocytes Count 0.030 X10^3/uL (0.0-0.0); Mean Corp Hgb Conc 33.1 g/dL (32-36); Mean Corpuscular Volume 85.3 fL (81-99); Mean Platelet Vol. 10.3 fl (6.2-12.0); NRBC Flagged by Analyzer 0 % (0-5); Platelet Count 235 K/mm3 (150-450); RBC Distribution Width CV 15.3 % (11.6-14.6); RBC Distribution Width SD 47.4 fl (35.1-43.9); Red Blood Count 4.14 M/mm3 (4.2-5.4); White Blood Count 9.9 K/mm3 (4.4-11.0)
[2025-04-12 23:34] LABS: Anion Gap 14 (5-15); BUN 16 mg/dL (4-19); BUN/Creat Ratio 24.1 RATIO (10-20); Calcium,Total 8.8 mg/dL (7.6-11.0); Carbon Dioxide 21.5 mmol/L (21.0-32.0); Chloride 96 mmol/L (98-108); Estimated Creatinine Clearance 53.90 ml/min (50-250); Glucose 198 mg/dL (70-99); Potassium 4.2 mmol/L (3.3-5.1)
[2025-04-12] MEDS: Scopolamine 1mg/72hr Patch 1 PATCH TD (23:42)
[2025-04-13] VITALS (10 sets, daily range): BP systolic 130–148; BP diastolic 58–88; PULSE 70–84; RESP 14–22; TEMP 36.6–37.2; O2SAT 95–100; BMI 25.0; BMI 25.4
[2025-04-13 00:05] LABS: Partial Thromboplast Time 24.8 Seconds (24.1-36.2); Prothrombin Time (Protime)PT. 14.3 SECONDS (11.7-14.9)
--- NOTE | 2025-04-13 00:58 | PCM.HP.STD ---
[facility] - General General Date of Admission: 04/13/25 Date of Service: 04/13/25 Chief Complaint: Vertigo with Fall. [facility] Narrative ERA PARKER, is a 84 F with a past medical history of essential hypertension; on amlodipine and telmisartan, hyperlipidemia; on simvastatin, hypothyroidism; s/p thyroidectomy on levothyroxine, overweight; with BMI of 26.4 this admission, DM-2; of unknown control on metformin BID, glimepiride BID and empagliflozin, CAD; on BASA daily, history of mild carotid artery stenosis ~50% bilaterally; followed by Dr. Degroot of vascular surgery, history of asthma; on fluticasone propion-salmeterol BID, seasonal allergies; on fexofenadine BID plus nasal ipratropium bromide QID, history of vertigo, depression; on trazodone, GERD; on pantoprazole and OA who presents to [facility] ER complaining of vertigo. Ms. Parker reports her symptoms began shortly after awakening on the morning of April 12, 2025 at ~7 AM she woke up feeling dizzy like the room was spinning so she decided to go back to bed and woke up feeling better. She then ate breakfast followed by a return of her symptoms which included nausea and vomiting with bilious emesis. Unfortunately, she became more symptomatic throughout the day and developed an unstable gait with a mild fall that caused her to bump her Left elbow with an associated tension-type headache but she denies significant head trauma or loss of consciousness. She admits to a similar previous episode with admission here from March 10, 2022 to March 11, 2022 for treatment of vertigo with associated nausea and vomiting and CTA done on that admission showing Left ICA ~70% stenosis and right ICA less than 50% stenosis with referral to vascular surgery at that time. She denies associated sinus congestion, tinnitus, fever, chills, chest pain, palpitations, heart racing, lower extremity edema, abdominal pain, dysuria, hematuria or rash. In the ER she was noted to have CT scan of the head and neck with IV contrast that revealed approximately ~50% narrowing in the proximal Right ICA and approximately ~70% narrowing in the proximal Left ICA with bilateral intracranial ICA calcified plaque mainly in cavernous portions with no thrombosis, high-grade stenosis, dissection or aneurysm with patent dural sinuses in addition to laboratory evidence of mild Hyponatremia of 131 mmol/L present on admission with otherwise unremarkable laboratory studies and vital signs. She was medicated in ER with a scopolamine patch and 1 dose of metoclopramide in addition to volume resuscitation with IV fluid with modest improvement but with patient living by herself she did not feel safe going home. She was then admitted to the PCU under observation status for treatment of her acute vertigo flare for a stay that is expected to be less than 2 midnights. [facility] Medical History (Updated 04/13/25 @ 01:[address] Raj Schroeder, DO) Essential hypertension Carotid artery stenosis Nausea Diabetes Hyperlipemia Home Medications ?Medication ?Instructions ?Recorded ?Last Taken ?Type aspirin 81 mg chewable tablet 1 tab PO DAILY heart health 03/10/22 04/12/25 History fexofenadine 60 mg tablet 60 mg PO DAILY allergies 03/10/22 04/12/25 History glimepiride 1 mg tablet 1 tab PO BID diabetes 03/10/22 04/12/25 History levothyroxine 125 mcg tablet 1 tab PO SUTUWETHFRSA thyroid 03/10/22 04/12/25 History metformin 1,000 mg tablet 1 tab PO BID diabetes 03/10/22 04/12/25 History pantoprazole 20 mg tablet,delayed 1 tab PO DAILY reflux 03/10/22 04/12/25 History release simvastatin 10 mg tablet 1 tab PO DAILY cholesterol 03/10/22 04/12/25 History sitagliptin phosphate 100 mg 1 tab PO DAILY diabetes 03/10/22 04/12/25 History tablet (Januvia) trazodone 50 mg tablet 1 tab PO QHS sleep 03/10/22 04/11/25 History amlodipine 2.5 mg tablet 2.5 mg PO DAILY 03/21/23 04/12/25 History telmisartan 20 mg tablet 20 mg PO DAILY 03/21/23 04/12/25 History fluticasone 250 mcg-salmeterol 50 1 ea inhalation BID 04/13/25 04/12/25 History mcg/dose blistr powdr for inhalation ipratropium bromide 42 mcg (0.06 2 spray intranasal 4X/DAY 04/13/25 04/12/25 History %) nasal spray levothyroxine 125 mcg tablet 62.5 mcg PO MO 04/13/25 04/07/25 History (Euthyrox) magnesium chloride 64 mg 128 mg PO DAILY 04/13/25 04/12/25 History (magnesium chloride) tablet,delayed release (Mag 64) [id number]-[id number] 1 tab PO DAILY 04/13/25 04/12/25 History tablet (A Thru Z High Potency tablet) Allergy/AdvReac Type Severity Reaction Status Date / Time Sulfa (Sulfonamide Allergy Hives Verified 04/13/25 02:47 Antibiotics) lisinopril AdvReac Cough Verified 04/13/25 02:47 Family History Other Diabetes Hypertension Surgical History History of thyroidectomy History of hysterectomy Social History household members: none Smoking Status: Never smoker alcohol intake: current alcohol intake frequency: holidays/special occasions only substance use type: does not use ROS ROS Narrative Review of Systems: Constitutional: Patient denies fever or chills. Eyes: Patient denies change in vision or discharge from eyes. ENT: Patient denies runny nose, sore throat or ear pain. Resp: Patient denies shortness of breath or cough. CV: Patient denies chest pain, palpitations, heart racing or lower extremity edema. GI: Patient admits to nausea and vomiting with bilious emesis but she denies abdominal pain, diarrhea or constipation. : Patient denies dysuria or hematuria. MSK: Patient denies arthralgias or myalgias. Skin: Patient denies rash, abscess, wounds or jaundice. Psych: Patient denies symptoms of uncontrolled depression or anxiety. Neuro: Patient admits to ongoing vertigo with difficult gait with associated tension type headache as per HPI. She denies paresthesias or focal neurologic deficits. Allergy: Patient denies lip swelling, tongue swelling or urticaria. Hematology: Patient denies easy bleeding or easy bruisability. Endocrinology: Patient denies polyuria, polydipsia, polyphagia or heat/cold intolerance. 14 point ROS otherwise negative except for positives noted above in HPI. Vital Signs Vital Signs Vital Signs: 04/12/25 21:24 04/12/25 22:35 04/12/25 23:00 Temperature 99.1 F Temperature Source Oral Pulse Rate 86 79 81 Respiratory Rate 14 15 13 Blood Pressure 177/81 H 135/60 H 132/66 H Blood Pressure Mean 113 85 88 Pulse Ox 98 98 99 Oxygen Delivery Method Room Air Room Air Room Air 04/13/25 00:06 04/13/25 00:43 Temperature 99.0 F Temperature Source Pulse Rate 81 82 Respiratory Rate 15 14 Blood Pressure 148/66 H 137/67 H Blood Pressure Mean 93 90 Pulse Ox 97 98 Oxygen Delivery Method Room Air Weight Weight: 158 lb 9.6 oz Body Mass Index (BMI) 26.4 Physical Exam Const alert, oriented x3, no apparent distress, average body habitus and healthy appearing General Appearance: cooperative HEENT normocephalic, head/scalp atraumatic, hearing grossly normal bilaterally and moist oral mucous membranes Eyes PERRL, EOMs intact bilaterally and conjunctivae normal Neck no lymphadenopathy, supple and no JVD Resp normal respiratory effort, no retractions, no use of accessory muscles and clear to auscultation bilaterally Cardio regular rate and regular rhythm GI normal to inspection, nondistended, normoactive bowel sounds, soft to palpation, non-tender and non-distended Extremity Extremity Narrative: Patient has mild contusion of the Left elbow. Skin Skin Narrative: Patient has no evidence of rash, abscess, wounds or jaundice. Neuro oriented x3, CN's II-XII intact bilaterally, moves all extremities and no focal motor deficits Neuro Narrative: Patient states her vertigo has improved after placement of scopolamine patch. Sensorium / Orientation: awake, alert, oriented to person, oriented to place and oriented to time Speech: speech normal Psych affect normal Results Medical Records Data Attestation: I reviewed the patient's medical records Lab / Micro Data Attestation: I reviewed the patient's lab results. 04/12/25 22:00 04/12/25 22:00 Labs: Laboratory Results - last 24 hr 04/12/25 22:00: WBC 9.9, RBC 4.14 L, Hgb 11.7 L, Hct 35.3 L, MCV 85.3, MCH 28.3, MCHC 33.1, RDW Std Deviation 47.4 H, RDW Coeff of Armond 15.3 H, Plt Count 235, MPV 10.3, Immature Gran % (Auto) 0.300, Neut % (Auto) 82.2 H, Lymph % (Auto) 12.1 L, [place] % (Auto) 4.8, Eos % (Auto) 0.2, Baso % (Auto) 0.4, Absolute Neuts (auto) 8.1 H, Absolute Lymphs (auto) 1.19, Nucleated RBC % 0, Sodium 131 L, Potassium 4.2, Chloride 96 L, Carbon Dioxide 21.5, Anion Gap 14, BUN 16, Creatinine 0.65 L, Estim Creat Clear Calc 53.90, Est GFR (MDRD) Non-Af 88, BUN/Creatinine Ratio 24.1 H, Glucose 198 H, Calcium 8.8 04/12/25 23:00: PT Cancelled, INR Cancelled, APTT Cancelled 04/12/25 23:35: PT 14.3, INR 1.1, APTT 24.8 Imaging Radiology Impression Head/Neck CTA 04/12/25 22:02 IMPRESSION: Ohdj-iykolxx-dsuk-right stenosis, proximal extracranial ICA, as seen previously. No thrombosis, high-grade stenosis, dissection or aneurysm in the cervical or intracranial arteries. Patent dural venous sinuses. Reading Location: [place] [id number] Assessment & Plan Assessment/Plan (1) Vertigo: (2) Gait difficulty: (3) Nausea and vomiting: QUALIFIERS: Vomiting type: bilious vomiting Qualified Code(s): R11.14 - Bilious vomiting (4) Bilateral carotid artery disease: QUALIFIERS: Carotid artery disease type: stenosis Qualified Code(s): I65.23 - Occlusion and stenosis of bilateral carotid arteries (5) Hyponatremia: (6) Overweight (BMI 25.0-29.9): PLAN: Plan 1. [id number] Vertigo flare with Difficult Gait and Nausea/Vomiting with bilious emesis - Admit to PCU under observation status. Continue scopolamine patch 1.5 mg topical every 72 hours. Give meclizine as needed for breakthrough vertigo symptoms. Give ondansetron IV as needed for nausea and vomiting. Give acetaminophen as needed for bwur-mo-npaudwpo (level 1-5/10) pain or fever. Give oxycodone as needed for severe (level 6-10/10) pain. Finally, we will consult PT/OT and Case Management to see this patient on rounds in the a.m. for further recommendations without appreciated advance. 2. CT scan of the head and neck with IV contrast that revealed approximately ~50% narrowing in the proximal Right ICA and approximately ~70% narrowing in the proximal Left ICA with bilateral intracranial ICA calcified plaque mainly in cavernous portions with no thrombosis, high-grade stenosis, dissection or aneurysm with patent dural sinuses with patient subsequently followed by Dr. Degroot of vascular surgery complicating #1 - Check carotid Doppler to confirm CT findings with patient having apparent not being evaluated by vascular surgeon for ~2 years in spite of recommendation to follow-up annually. Finally, we we will consult vascular surgery to see patient in a.m. for further recommendations without appreciated in advance. 3. Similar previous episode with admission here from March 10, 2022 to March 11, 2022 for treatment of vertigo with associated nausea and vomiting and CTA done on that admission showing Left ICA ~70% stenosis and right ICA less than 50% stenosis with referral to vascular surgery at that time compounding #1 & #2 - Noted. 4. Hyponatremia of 131 mmol/L present on admission - Give NS IVF and then recheck level in AM to confirm improvement. 5. Overweight; with BMI of 26.4 this admission - Weight loss will be recommended. Check TSH. 6. Essential hypertension; on amlodipine and telmisartan - Maintain home regimen. 7. Hyperlipidemia; on simvastatin - Resume statin and check Lipid Profile. 8. Hypothyroidism; s/p thyroidectomy on levothyroxine - Continue levothyroxine and check TSH. 9. DM-2; of unknown control on metformin BID, glimepiride BID and empagliflozin - Hold oral hypoglycemics while inpatient. Start clear liquid diet in AM and then advance as tolerated. Check FSBS q. 6 hours plus lowest intensity SSI. Check HgbA1c to objectively assess quality of diabetic control. 10. CAD; on BASA daily - Current therapy to be maintained as previous. 11. History of asthma; on fluticasone propion-salmeterol BID - Maintain present treatment. 12. Seasonal allergies; on fexofenadine BID plus nasal ipratropium bromide QID - Continue current plan of treatment. 13. Depression; on trazodone - Continue trazodone. 14. GERD; on pantoprazole - Maintain PPI. 15. OA - Stable. We will follow pain regimen and scale as outlined in #1. 16. DVT prophylaxis - Enoxaparin 40 mg sq daily plus SCD's. Total time: Approximately (but not less than) 70 minutes. Charges/Coding Visit Charges OBSV E&M: 56403 Observ/hosp same date L2
--- OUTSIDE RECORDS SUMMARY | 2025-04-13 01:20 | XMS RPT_ITS | CCD ---
Author Organization [facility] Care Team Providers Care Energy Assistant Name Role Phone YASHIRA GIORDANO Unavailable Unavailable [...] Primary Care Provider Arturo Winter PA-C Unavailable [phone] Older CALCIMINER.OVERCOILER, Griselda Unavailable Lorene Mendez PA-C Unavailable Arsh Chaney Attending Unavailable Darin Alonzo Primary Care Unavailable DARIN ALONZO Primary Care Unavailable GANTA, DARIN Referring Unavailable OLDER, GRISELDA Attending Unavailable GANTA, DARIN Primary Care Unavailable GANTA, DARIN Primary Care Unavailable GANTA, DARIN Primary Care Unavailable OLDER, GRISELDA Attending Unavailable OLDER, GRISELDA Referring Unavailable GANTA, DARIN Primary Care Unavailable OLDER, GRISELDA Referring Unavailable GANTA, DARIN Primary Care Unavailable OLDER, GRISELDA Attending Unavailable GANTA, DARIN Primary Care Unavailable OLDER, GRISELDA Referring Unavailable GANTA, DARIN Primary Care Unavailable OLDER, GRISELDA Referring Unavailable GANTA, DARIN Primary Care Unavailable CLICK, DORIE Attending Unavailable GANTA, DARIN Primary Care Unavailable OLDER, GRISELDA Attending Unavailable GANTA, DARIN Primary Care Unavailable GANTA, DARIN Primary Care Unavailable OLDER, GRISELDA Referring Unavailable GANTA, DARIN Primary Care Unavailable OLDER, GRISELDA Referring Unavailable GANTA, DARIN Primary Care Unavailable CLICK, DORIE Attending Unavailable OLDER, GRISELDA Attending Unavailable GANTA, DARIN Primary Care Unavailable OLDER, GRISELDA Referring Unavailable GANTA, DARIN Primary Care Unavailable Allergies Allergy Classification Reported Allergen(s) Allergy Type Date of Onset Reaction(s) Facility (20 sources) Sulfonamides (Antibiotic); Translations: [SULFA (SULFONAMIDE ANTIBIOTICS)] Propensity to adverse reactions to drug (disorder) 5 Rash [facility] Other [place] Repository (20 sources) Lisinopril; Translations: [LISINOPRIL] Drug Allergy 2 Cough [facility] Medications Current Medications Medication Drug Class(es) [...] tablet (7 sources) Histamine-2 Receptor Antagonist Start: 025 End: 06-27-2 025 take 1 tablet by mouth once daily at bedtime famotidine (PEPCID) 40 mg tablet Take 1 tablet by mouth daily at bedtime. 30 tablet 1 02/07/2025 03/07/2025 Discontinued fexofenadine hydrochloride 60 mg oral tablet (20 sources) Histamine-1 Receptor Antagonist Start: 018 take 1 tablet by mouth twice daily fexofenadine (CECY ALLERGY) 60 mg tablet Indications: Cough , Post-nasal drip , Seasonal allergic rhinitis, unspecified trigger Take 1 tablet by mouth twice daily. 60 tablet 3 01/22/2018 Active Comment on above: Take 1 tablet by alhaji th twice daily. 14 actuat fluticasone furoate 0.1 mg/actuat dry powder inhaler (20 sources) Corticosteroid Start: End: take 1 puff(s) by inhalation once [...] instructed two times a day. 180 each 04/01/2025 Active Start: 03-28-2025 take 1 puff(s) by in halation twice daily fluticasone-salmeterol (WIXELA INHUB) 100-50 mcg/dose inhaler Inhale 1 puff as instructed two times a day. 60 each 03/28/2025 Active Start: 10-18-2024 End: 03-28-2025 take [...] two times a day. 60 Each 10/18/2024 Active Fluticasone Propionate (Flovent Hfa) 110 [...] in PM Take 2 tablets by mo [facility] two times a day with meals. Take [...] day a week TAKE 1 TABLET BY ALHAIJ ONCE DAILY EXCEPT TAKE 2 TABLETS 1 [...] at bedtime. TAKE 1 TABLET BY ALHAJI TH DAILY AT BEDTIME Completed/Discontinued Medications Medication Drug Class(es) Dates Sig (Normalized) Sig (Original) [id number] 200 actuat albuterol 0.09 mg/actuat metered dose [...] on above: Take 1 capsule by mo [facility] three times daily as needed for cough. [...] above: Take 1 tablet by alhaji daily at bedtime. Multivitamins-Mine rals-Lutein (CENTRUM SILVER) [...] complications] Onset: 07-04-2005 Resolved: 01-04-2016 08-10-2015 Chronic Disorders of lipid metabolism (20 sources) Hyperlipidemia; [...] Translations: [Cramp and spasm] 01-10-2025 Episodic Other lower respiratory disease (4 [...] disorders (1 source) Hypomagnesemia; Translations: [Hypomagnesemia] Onset: 01-29-2025 Chronic Other upper respiratory infections (1 source) Chronic sinusitis; Translations: [Chronic sinusitis, unspecified] Chronic Residual codes; unclassified (3 sources) Insomnia; Translations: [Insomnia, unspecified] 01-10-2025 Episodic Residual codes; unclassified (1 source) Insomnia, unspecified; Translations: [Insomnia, unspecified type] Onset: 02-07-2025 Episodic Thyroid disorders (20 sources) Hypothyroidism; Translations: [Hypothyroidism, unspecified] Onset: 01-03-2006 08-10-2015 Chronic Unclassified (1 source) Acute cough; Translations: [Acute cough] Onset: 01-22-2018 Past or Other Problems Problem Classification Problem Date Documented Date Episodic/Chronic Allergic reactions (20 sources) Solar degeneration; 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] Onset: 04-17-2013 Resolved: 02-16-2015 02-16-2015 Episodic Diseases of mouth; excluding dental (2 sources) Finding of color of lips; Translations: [Diseases of lips] Onset: 01-10-2025 01-10-2025 Episodic Hemorrhoids (20 sources) Internal hemorrhoids; Translations: [Other hemorrhoids] Onset: 07-04-2005 01-03-2006 Episodic Other aftercare (1 source) Other [employer] (current) drug therapy; Translations: [Medication management] Onset: [...] Onset: 04-17-2013 Resolved: 02-16-2015 02-16-2015 Episodic Other connective tissue disease (1 source) Cramp and spasm; Translations: [Muscle cramps] Onset: 01-10-2025 Episodic Other lower respiratory disease (1 source) [...] Test Name Value Interpretation Reference Range Facility [facility] 04-09-2025 [facility] Telephone (INTMWS) SHANNON LEIJA ([id number]) 1940 F NFR Date Time Provider Department 04/09/25 DARIN ALONZOWS During your visit today, we recorded the following information about you: Aliyah Clemens RN 04/09/2025 4:20 PM Signed Pt called in and reports she will be flying down to [place] in June. She was wanting to know about taking her pills on her carry on. She said the corporate travel expert told her she they want them I the original bottles. The Pt states she wants to put them in the Monday-Monday pill container. Then she wanted to know if she had a print out of what she takes from the providers office would that be good enough, or does she need a letter from her provider. Please call and advise. SKY Alves Chitra, MD 04/10/2025 1:39 PM Signed Please print a list of her medications And mail to her Regards, Christi Matta MD, MA 04/10/2025 2:27 PM Signed Printed medication list AND sent to mail. Christi Quiñonez MA Allergies As of Date: 04/09/2025 Noted Allergy Reaction LISINOPRIL 05/09/2022 3 - Cough SULFA (SULFONAMIDE ANTIBIOTICS) 07/04/2005 2 - Rash Comments: Childhood reaction. Date Reviewed: 03/07/2025 Reviewed by: Griselda Lema APRN.OVERCOILER - Fully Assessed Reason for Visit: Patient Question [8517] Prescriptions as of 04/10/2025 - fluticasone-salmeterol (WIXELA INHUB) 250-50 mcg/dose inhaler Inhale 1 puff as instructed two times a day. - magnesium chloride [address] tablet Take 2 tablets by mouth once daily. - magnesium chloride [address] tablet Take 2 tablets by mouth once daily. - ipratropium bromide (ATROVENT) 42 mcg (0.06 %) nasal spray USE 2 SPRAYS NASALLY 4 TIMES DAILY - Telmisartan 20 mg tablet Take 1 tablet by mouth once daily. - traZODone (DESYREL) 50 mg tablet Take 1 tablet by mouth daily at bedtime. - amLODIPine (NORVASC) 2.5 mg tablet Take 1 tablet by mouth once daily. - glimepiride (AMARYL) 2 mg tablet Take 1 tablet by mouth two times a day with meals. - metFORMIN (GLUCOPHAGE) 1,000 mg tablet Take 1 tablet by mouth two times a day. - simvastatin (ZOCOR) 10 mg tablet Take 1 tablet by mouth once daily. - pantoprazole DR (PROTONIX) 20 mg tablet Take 1 tablet by mouth once daily. - levothyroxine (SYNTHROID) 125 mcg tablet Take 1 tablet by mouth once daily. Except take 1/2 tablet on Sundays - SITagliptin phosphate (JANUVIA) 100 mg tablet Take 1 tablet by mouth once daily. - blood sugar diagnostic (ONETOUCH ULTRA TEST) test strip TEST 1 TIME DAILY - blood sugar diagnostic (BLOOD GLUCOSE [...] Tab Take 81 mg by mouth. - Antmkmhlezhiz-Fdgflmli-Psfg in (CENTRUM SILVER) tab Take 1 tablet by mouth once daily. Problem List As Of Date 04/09/2025 Noted Resolved OVERWEIGHT [E66.9] 07/04/2005 02/16/2015 DIABETES [...] reflux disease without esophag*10/22/2020 Encounter Status:Closed by CHRISTI QUIÑONEZ on 04/10/25 [facility] CNOVon 03-07-2025 CNOV Office Visit (INTMWS ) HANG LEIJALIJustice Asif ([id number]) 1940 F NFR Date Time Provider Department 03/07/25 7:00 AM GRISELDA LEMA INTMWS During your visit today, we recorded the following information about you: Pulse Respiration Blood pressure Weight 84/minute 16/minute 122/60 71.2 kg Griselda Lema APRN.CNP 03/07/2025 8:35 AM Signed CC: Patient presents with: Recheck: 4 week follow up HPI Shannon Leija is a 84 year old female who presents today for follow up on leg cramps and insomnia. Recording using [employer] software for draft documentation of the visit was discussed with the patient/authorized ocean import representative; all questions welcomed and answered. Patient/authorized ocean import representative agreed to proceed Muscle Cramps: - [...] with sleep. Lifestyle: - Shannon exercises at [employer] six days a week. - Enjoys attending shows at [employer]. REVIEW OF SYSTEMS General: no fevers, no [...] mg Tab Take 81 mg by mouth. Ajnhsradfrxsg-Rbqtgsns-Jtny in (CENTRUM SILVER) tab Take 1 tablet by mouth once daily. FAMILY HISTORY Adopted: Yes Social History Tobacco Use Smoking status: Never Smokeless tobacco: Never Tobacco comments: Parents did not smoke in childhood home. Spouse smoked in home for about 10 years. Vaping Use Vaping status: Never Used Sub (more content not included)... Normal [facility] Magnesium SerPl-ncon 02-21 Magnesium [Mass/Vol] 1.7 mg/dL Normal 1.7-2.3 [facility] Comment on above: Order Comment: Speci men Type: BLOOD SPECIMEN Ordering Facility: [facility] Address: [address] [place] [address] Performed By: #### 1 9123-9 #### [facility] CLIA [id number] [address] [place] [address] [place] [facility] CNOVon 02-07-2025 CNOV Office Visit (INTMWS ) HANG LEIJALIJustice Asif ([id number]) 1940 F NFR Date Time Provider Department 02/07/25 7:00 AM GRISELDA LEMA During your visit today, we recorded the following information about you: Pulse Respiration Blood pressure Weight 74/minute 16/minute 136/64 72.1 kg Griselda Lema APRN.OVERCOILER 02/07/2025 7:44 AM Signed CC: Patient presents with: Recheck: 4 week follow up HPI Shannon Leija is a 84 year old female who presents today for follow up on insomnia which she was started on trazadone for and muscle cramps. Was found to have low magnesium so started on a magnesium supplement. Recording using [employer] software for draft documentation of the visit was discussed with the patient/authorized ocean import representative; all questions welcomed and answered. Patient/authorized ocean import representative agreed to proceed Hypomagnesemia: - Magnesium [...] mg Tab Take 81 mg by mouth. Ebrwtqmifxzts-Nwlizjtw-Vgyi in (CENTRUM SILVER) tab Take 1 tablet by mouth once daily. FAMILY HISTORY Adopted: Yes Social History Tobacco Use Smoking status: Never Smokeless tobacco: Never Tobacco comments: (more content not included)... Normal [facility] 02-04-2025 [facility] Telephone (INTMWS) SHANNON LEIJA ([id number]) 1940 F NFR Date Time Provider Department 02/04/25 DARIN ALONZO INTMWS During your visit today, we recorded the following information about you: Luisana Cleveland 02/04/2025 12:35 PM Signed Patient called said she continues to have leg cramps even with taking the magnesium chloride 64mg Patient asking if a higher dose should be called in? She has 7 pills left Can be reached at [phone] Please advise Griselda Lema APRN.CNP 02/07/2025 7:04 AM Signed Will discuss further at upcoming appointment Griselda Lema APRN.CNP Allergies As of Date: 02/04/2025 Noted Allergy Reaction LISINOPRIL 05/09/2022 3 - Cough SULFA (SULFONAMIDE ANTIBIOTICS) 07/04/2005 2 - Rash Comments: Childhood reaction. Date Reviewed: 01/10/2025 Reviewed by: Griselda Lema APRN.OLESYA - Fully Assessed Reason for Visit: Patient Question [9248] Cmt: Leg cramps / asking if a [...] Tab Take 81 mg by mouth. - Cqjjiqtzdcuiu-Jyrcjazg-Xbnv in (CENTRUM SILVER) tab Take 1 tablet [...] Status:Closed by GRISELDA LEMA on 02/07/25 Normal [facility] Magnesium SerPl-mCncon 01-29 Magnesium [Mass/Vol] 1.4 mg/dL Low 1.7-2.3 [facility] Comment on above: Order Comment: Speci men Type: BLOOD SPECIMEN Ordering Facility: [facility] Address: [address] [place] [address] Performed By: #### 5 8410-2 #### [facility] CLIA [id number] [address] [place] [address] [facility] CNOVon 01-10-2025 CNOV Office Visit (INTMWS ) KEITHSHANNON A ([id number]) 1940 F NFR Date Time Provider Department 01/10/25 7:20 AM GRISELDA LEMA During your visit today, we recorded the following information about you: Pulse Respiration Blood pressure Weight 78/minute 16/minute 130/68 71.7 kg Griselda Lema APRN.[facility] 01/10/2025 7:59 AM Signed CC: Patient presents with: Recheck: 3 month follow up HPI Shannon Leija is a 84 year old female who presents today for routine follow up. Recording using ambient DocuSign software for draft documentation of the visit was discussed with the patient/authorized ocean import representative; all questions welcomed and answered. Patient/authorized ocean import representative agreed to proceed Diabetes Mellitus: - [...] dyspnea, edema, or headaches. - Exercises at [employer] 6 days a week: strength training and [...] Test blood (more content not included)... Normal [facility] Magnesium SerPl-mCncon 01-10 Magnesium [Mass/Vol] 1.5 mg/dL Low 1.7-2.3 [facility] Comment on above: Order Comment: Speci men Type: BLOOD SPECIMENOrdering Facility: [facility] Address: [address] [place] [address] [place] [address] Performed By: #### 1 9123-9 ####[facility] [id number] [facility] [address] [place] [address] [place] Basic metabolic 2000 panelon 01-03-2025 Anion gap [Moles/Vol] 11 mmol/L Normal 8-15 [facility] Comment on above: Order Comment: Speci men Type: BLOOD SPECIMENOrdering Facility: [facility] Address: [address] [place] [address] Performed By: #### 3 016-3, 91514-6 ####[facility] [id number] [address] [place] [address] [place] Calcium [Mass/Vol] 9.2 mg/dL Normal 8.5-10.2 [facility] Comment on above: Order Comment: Speci men Type: BLOOD SPECIMENOrdering Facility: [facility] Address: [address] [place] [address] Performed By: #### 3 016-3, 77964-0 ####[facility] [id number] [facility] [address] [place] [address] [place] Chloride [Moles/Vol] 98 mmol/L Normal 98-107 [facility] Comment on above: Order Comment: Speci men Type: BLOOD SPECIMENOrdering Facility: [facility] Address: [address] [place] [address] Performed By: #### 3 016-3, 86945-9 ####[facility] [id number] [facility] [address] [place] [address] [place] CO2 [Moles/Vol] 26 mmol/L Normal 22-30 [facility] Comment on above: Order Comment: Speci men Type: BLOOD SPECIMENOrdering Facility: [facility] Address: [address] [place], [place] [address] Performed By: #### 3 016-3, 20569-2 ####[facility] [id number] [facility] [place] [id number] [address] [place] Creatinine [Mass/Vol] 0.77 mg/dL Normal 0.58-0.96 [facility] Comment on above: Order Comment: Saba dickerson Type: BLOOD SPECIMENOrdering Facility: [facility] Address: [address] [place] [address] Performed By: #### 3 016-3, 66360-8 ####[facility] [id number] [address] Creatinine and Glomerular filtration rate.predicted panel (S/P/Bld) 77 mL/min/1.73m??? Normal >=60 [facility] Comment on above: Order Comment: Saba dickerson Type: BLOOD SPECIMENOrdering Facility: [facility] Address: [address] [place] [address] Result Comment: Shari mated Glomerular Filtration Rate [...] actual GFR. Performed By: #### 3 016-3, 82284-1 ####[facility] [id number] [address] [place] Glucose [Mass/Vol] 129 mg/dL High 74-99 [facility] Comment on above: Order Comment: Saba dickerson Type: BLOOD SPECIMENOrdering Facility: [facility] Address: [address] [place] [address] Result Comment: The [place] Diabetes Association (ADA) provides guidance for cutoff [...] Standards of Medical Care in Diabetes 2016, [place] Diabetes Association. Diabetes Care. 2016.39(Suppl 1). Performed By: #### 3 016-3, 74916-7 ####[facility] [id number] [address] [address] [place] Potassium [Moles/Vol] 4.3 mmol/L Normal 3.7-5.1 [facility] Comment on above: Order Comment: Speci men Type: BLOOD SPECIMENOrdering Facility: [facility] Address: [address] [place] [address] Performed By: #### 3 016-3, 83735-9 ####[facility] [id number] [address] [address] [place] Sodium [Moles/Vol] 135 mmol/L Low 136-144 [facility] Comment on above: Order Comment: Speci men Type: BLOOD SPECIMENOrdering Facility: [facility] Address: [address] [place] [address] Performed By: #### 3 016-3, 84646-8 ####[facility] [id number] [address] [address] [place] Urea nitrogen [Mass/Vol] 18 mg/dL Normal 7-21 [facility] Comment on above: Order Comment: Speci men Type: BLOOD SPECIMENOrdering Facility: [facility] Address: [address] [place] [address] Performed By: #### 3 016-3, 63200-9 ####[facility] [id number] [address] [address] [place] CBC panel Auto (Bld)on 01-03 Erythrocyte distribution width (RBC) [Ratio] 15.0 % Normal 11.5-15.0 [facility] Comment on above: Order Comment: Speci men Type: BLOOD SPECIMEN Ordering Facility: [facility] Address: [address] [place] [address] Performed By: #### 5 8410-2 #### [facility] CLIA [id number] [address] [place] [address] [place] Hematocrit (Bld) [Volume fraction] 36.8 % Normal 36.0-46.0 [facility] Comment on above: Order Comment: Speci men Type: BLOOD SPECIMEN Ordering Facility: [facility] Address: [address] [place] [address] Performed By: #### 5 8410-2 #### [facility] CLIA [id number] [address] [place] [address] [place] Hemoglobin (Bld) [Mass/Vol] 11.8 g/dL Normal 11.5-15.5 [facility] Comment on above: Order Comment: Speci men Type: BLOOD SPECIMEN Ordering Facility: [facility] Address: [address] [place] [address] Performed By: #### 5 8410-2 #### [facility] CLIA [id number] [address] [place] [address] [place] MCH (RBC) [Entitic mass] 28.0 pg Normal 26.0-34.0 [facility] Comment on above: Order Comment: Speci men Type: BLOOD SPECIMEN Ordering Facility: [facility] Address: [address] [place] [address] Performed By: #### 5 8410-2 #### [facility] CLIA [id number] [address] [place] [address] [place] MCHC (RBC) [Mass/Vol] 32.1 g/dL Normal 30.5-36.0 [facility] Comment on above: Order Comment: Speci men Type: BLOOD SPECIMEN Ordering Facility: [facility] Address: [address] [place] [address] Performed By: #### 5 8410-2 #### [facility] CLIA [id number] [address] [place] [address] [place] MCV (RBC) [Entitic vol] 87.2 fL Normal 80.0-100.0 [facility] Comment on above: Order Comment: Speci men Type: BLOOD SPECIMEN Ordering Facility: [facility] Address: [address] [place] [address] Performed By: #### 5 8410-2 #### [facility] CLIA [id number] [address] [place] [address] [place] Nucleated RBC (Bld) [#/Vol] 10*3/uL Normal <0.01 [facility] Comment on above: Order Comment: Speci men Type: BLOOD SPECIMEN Ordering Facility: [facility] Address: [address] [place] [address] Performed By: #### 5 8410-2 #### [facility] CLIA [id number] [address] [place] [address] [place] Platelet mean volume (Bld) [Entitic vol] 10.7 fL Normal 9.0-12.7 [facility] Comment on above: Order Comment: Speci men Type: BLOOD SPECIMEN Ordering Facility: [facility] Address: [address] [place] [address] Performed By: #### 5 8410-2 #### [facility] CLIA [id number] [address] [place] [address] [place] Platelets (Bld) [#/Vol] 250 10*3/uL Normal 150-400 [facility] Comment on above: Order Comment: Speci men Type: BLOOD SPECIMEN Ordering Facility: [facility] Address: [address] [place] [address] Performed By: #### 5 8410-2 #### [facility] CLIA [id number] [address] [place] [address] [place] RBC (Bld) [#/Vol] 4.22 10*6/uL Normal 3.90-5.20 [facility] Comment on above: Order Comment: Speci men Type: BLOOD SPECIMEN Ordering Facility: [facility] Address: [address] [place] [address] Performed By: #### 5 8410-2 #### [facility] CLIA [id number] [address] [place] [address] [place] WBC (Bld) [#/Vol] 6.52 10*3/uL Normal 3.70-11.00 [facility] Comment on above: Order Comment: Otonieli men Type: BLOOD SPECIMEN Ordering Facility: [facility] Address: [address] [place] [address] Performed By: #### 5 8410-2 #### [facility] CLIA [id number] [address] [place] [address] [place] HbA1c (Bld)on 01-03-2025 Average glucose Estimated from glycated hemoglobin (Bld) [Mass/Vol] 177 mg/dL Normal [facility] Comment on above: Order Comment: aSba men Type: BLOOD SPECIMENOrdering Facility: [facility] Address: [address] [place] [address] Result Comment: eAG: (Estimated average glucose) is a calculated value from HgbA1c and is ocean import representative of the average blood glucose level in the last 2-3 month period. Performed By: #### 5 5454-3 ####[facility] [id number] [place] [address] [place] HbA1c (Bld) [Mass fraction] 7.8 % High 4.3-5.6 [facility] Comment on above: Order Comment: Saba dickerson Type: BLOOD SPECIMENOrdering Facility: [facility] Address: [address] [place] [address] Result Comment: [place] Diabetes Association guidelines indicate that patients with HgbA1c in the range 5.7-6.4% are at increased risk for development of diabetes, and intervention by lifestyle modification may be beneficial. HgbA1c greater or equal to 6.5% is considered diagnostic of diabetes. Performed By: #### 5 5454-3 ####[facility] [id number] [address] [place] TSH SerPl-aCncon 01-03-2025 TSH Qn 0.544 m[IU]/L Normal 0.270-4.200 [facility] Comment on above: Order Comment: Speci men Type: BLOOD SPECIMENOrdering Facility: [facility] Address: [address] [place] [place] [address] Performed By: #### 3 016-3, 61538-9 ####[facility] [id number] [address] OF [place] CNOVon 12-13-2024 CNOV Office Visit (PULMWS ) SHANNON LEIJA ([id number]) 1940 F NFR Date Time Provider Department 12/13/24 8:00 AM DORIE GILL PULMWS During your visit today, we recorded the following information about you: Pulse Respiration Blood pressure Weight 82/minute 17/minute 130/64 70.3 kg Doire Gill, CALCIMINER.OVERCOILER 12/13/2024 12:40 PM Signed Pulmonary Medicine Patients [...] TAKE 1 TABLET BY MOUTH TWICE DAILY Qmncanvihjgco-Qdjbegou-Vkvl in Tab Commonly known as: CENTRUM SILVER [...] DATE OF EXAM: Dec 05 2023 8:38AM [facility] 0541 - CT CHEST WO IVCON / PROCEDURE REASON: multiple diagnoses * * * * Physician Interpretation * * * * EXAMINATION: CHEST CT WITHOUT CONTRAST CLINICAL HISTORY: Chronic cough Technique: Spiral CT acquisition of the chest from the thoracic inlet t (more content not included)... Normal [facility] Russell 11-18-2024 CNPN Telephone (PULJeanWS) SHANNON LEIJA ([id number]) 1940 F NFR Date Time Provider Department 11/18/24 PAMELA ARANDA During your visit today, we recorded the [...] should be treated for exacerbation? LLUVIA Holt LLUVIA Mcqueen 11/18/2024 11:56 AM Signed Patient calling again [...] Date Reviewed: 10/11/2024 Reviewed by: Griselda Lema APRN.OVERCOILER - Fully Assessed Reason for Visit: Cough [...] mouth once daily. - blood sugar diagnostic (CarnivalTOUCH ULTRA TEST) test strip TEST 1 TIME [...] Tab Take 81 mg by mouth. - Anqxsumqrbjls-Ubjpwfem-Ykvx in (CENTRUM SILVER) tab Take 1 tablet [...] Encounter Status:Closed by CHARISSE LAGOS on 11/19/24 [facility] PT D/C Summary (1)on 025 PT D/C Summary (1) [facility] Physical Therapy [facility] [address] [place] [address] / REHABILITATION SERVICES DISCHARGE SUMMARY MR#: [id number] Acct: [id number] Name: SHANNON LEIJA Rep #: [id number] : 1940 84 From: Tin Perdomo PT, ATC Referring DrDeclan: ADITYA Chaney Status: REG RCR Insurance: MEDICARE PART A B [facility] Discharge Summary D/C summary: It has been [...] Progress: Goal Met Plan Plan: Discharge to HEP D/C Information d/c sentence: If there are questions or concerns regarding this patient's physical therapy, please feel free to call me at [phone]. Thank you for the referral of this patient. Sincerely, Tin Perdomo, PT, ATC Balance/Gait/Functional tests Balance/Special Test Scores Lower Extremity Functional Score: 75 Improvement % Improvement: 100 10/22/24 1111 CC: ADITYA Chaney; Dr. Darin Alonzo MD [facility] Signed Normal [facility] CNPNon 10-17-2024 CNPN Telephone (JOSEWS) SHANNON LEIJA ([id number]) 1940 F NFR Date Time Provider Department 10/17/24 BRIDGET, DORIE MORTENSEN During your visit today, we recorded the [...] Kathleen, LPN 10/17/2024 9:46 AM Signed Per [employer] message from 12/13/23- patient may benefit from [...] Date Reviewed: 10/11/2024 Reviewed by: Griselda Lema APRN.OVERCOILER - Fully Assessed Reason for Visit: Patient [...] Tab Take 81 mg by mouth. - Mklsebmkwlaoh-Uxpldhah-Mvcx in (CENTRUM SILVER) tab Take 1 tablet [...] Status:Closed by CLICK, DORIE Pena on 10/18/24 [facility] CNOVon 10-11-2024 CNOV Office Visit (INTMWS ) SHANNON LEIJA ([id number]) 1940 F NFR Date Time Provider Department 10/11/24 8:00 AM GRISELDA LEMA During your visit today, we recorded the following information about you: Pulse Respiration Blood pressure Weight 84/minute 16/minute 132/68 71.2 kg Griselda Lema APRN.CNP 10/11/2024 9:06 AM Signed CC: Patient presents [...] him. Is starting grief sharing class at [employer] soon and hoping this will help. Has [...] a day (more content not included)... Normal [facility] HEMOGLOBIN A1C (POC)on 10-11 HbA1c (Bld) [Mass fraction] 7.8 % Abnormal 4.3 - 5.6 % [facility] Comment on above: Location:[address], [place], [address] Point of care (POC) Hemoglobin A1c (HGBA1C) [...] specific diabetes management situations: The POC device chip crusher operator provides a normal range of 4.2% to 6.5% for the HGBA1C POC test. However, the [place] [employer] guidelines indicate that patients with [...] and review of laboratory results Abnormal [facility] Inital Evaluation (1) - PTon 09-25-2024 Inital Evaluation (1) - PT [facility] Physical Therapy [facility] [address] [place] [address] / REHABILITATION SERVICES INITIAL EVALUATION MR#: [id number] Acct: [id number] Name: SHANNON LEIJA Rep #: [id number] : 1940 84 From: Tin Perdomo PT, ATC Referring Dr.: Dr. Arsh Chaney DPM Status: REG RCR Insurance: MEDICARE PART A B [facility] Patient's Visit Information Visit Information Visit Information: [...] to be FAXED BACK to us at [phone] for Medicare purposes. For Medicare only, by signing this I certify the plan of care. Please let me know if there are questions or concerns regarding this plan of care. Physician Signature: Date: 09/25/24 1202 CC: ADITYA Chaney; Dr. Darin Alonzo MD [facility] Signed Normal [facility] Telephone (INTMWS) SHANNON LEIJA ([id number]) 1940 F NFR Date Time Provider Department 09/19/24 DARIN ALONZO INTMWS During your visit today, we recorded the following information about you: Sarina Bobby RN 09/19/2024 9:30 AM Signed Patient calling and asking about thyroid lab testing results and instructions. Patient Notified: Thyroid levels in normal range. Continue current dosing of levothyroxine. Take care Griselda Lema, NAREN.[facility] Patient voices understanding. Sarina Bobby RN Allergies [...] Tab Take 81 mg by mouth. - Ktdnordeomgsn-Nkmamxuw-Cmfs in (CENTRUM SILVER) tab Take 1 tablet [...] Status:Closed by SARINA BOBBY on 09/19/24 Normal [facility] SCREENINGon 09-19-2024 [facility] SCREENING * * *Final Report* * * DATE OF EXAM: Sep 19 2024 10:22AM [address] SCREENING / PROCEDURE REASON: Encounter for screening mammogram for breast cancer * * * * Physician Interpretation * * * * RESULT: [place] [address] #[id number] - [facility] SCREENING HISTORY: Patient is 84 years old [...] Charisse Webster M.D. Electronically signed on: 09/19/2024 Stove Polisher: EMEKA Transcripatti Date/Time: Sep 19 2024 10:09A Dictated by: CHARISSE WEBSTER MD This examination was interpreted and the report reviewed and electronically signed by: CHARISSE WEBSTER MD on Sep 19 2024 4:28PM EST [id number] Normal [facility] Breast Screeningon 2024 IMPRESSION: There is no [...] Charisse Webster M.D. Electronically signed on: 09/19/2024 Stove Polisher: EMEKA Transcripatti Date/Time: Sep 19 2024 10:09A Dictated by: CHARISSE WEBSTER MD This examination was interpreted and the report reviewed and electronically signed by: CHARISSE WEBSTER MD on Sep 19 2024 4:28PM EST DIVISION OF RADIOLOGY * * *Final Report* * * DATE OF EXAM: Sep 19 2024 10:22AM [facility] 0581 - [facility] SCREENING / PROCEDURE REASON: Encounter for screening mammogram for breast cancer * * * * Physician Interpretation * * * * RESULT: [facility] [address] [place] [address] #[id number] - [place] SCREENING HISTORY: Patient is 84 [...] significant interval changes. DIVISION OF RADIOLOGY Provider, [facility] - 09/19/2024 * * *Final Report* * * DATE OF EXAM: Sep 19 2024 10:22AM [facility] 0581 - [facility] SCREENING / PROCEDURE REASON: Encounter for screening mammogram for breast cancer * * * * Physician Interpretation * * * * RESULT: [facility] [address] [place] [address] #[id number] - [place] SCREENING HISTORY: Patient is 84 [...] Charisse Webster M.D. Electronically signed on: 09/19/2024 Stove Polisher: EMEKA Transcribe Date/Time: Sep 19 2024 10:09A Dictated by: CHARISSE WEBSTER MD This examination was interpreted and the report reviewed and electronically signed by: CHARISSE WEBSTER MD on Sep 19 2024 4:28PM EST [facility] Radiology Study observation (narrative) [facility] MG Breast ScreeningOrdered B y: Ccf Provider on 09-19-2024 [facility] T4 Free SerPl-mCncon 025 Free T4 [Mass/Vol] 1.7 ng/dL Normal 0.9-1.7 [facility] Comment on above: Order Comment: Saba dickerson Type: BLOOD SPECIMEN [facility] Address: [address] [place] [address] Performed By: #### 5 8410-2 #### [facility] CLIA [id number] [address] [place] [address] [place] TSH SerPl-aCncon 09-16-2024 TSH Qn 0.368 m[IU]/L Normal 0.270-4.200 [facility] Comment on above: Order Comment: Otonieli tuan Type: BLOOD SPECIMEN [facility] Address: [address] [place] [address] Performed By: #### 5 8410-2 #### [facility] CLIA [id number] [address] [place] [address] [place] 08-06-2024 CNPN Telephone (INTMWS) SHANNON LEIJA ([id number]) 1940 F NFR Date Time Provider Department 08/06/24 DARIN ALONZO INTMWS During your visit today, [...] for screening mammogram for breast cancer [Z12.31] Order(s):[facility] SCREENING [4099459] Order #: [id number] FUTURE Prescriptions as of 08/07/2024 - levothyroxine [...] Tab Take 81 mg by mouth. - Hrirstccnewwv-Vpmkaajt-Vkcj in (CENTRUM SILVER) tab Take 1 tablet [...] Encounter Status:Closed by [facility]O [facility]IN [facility] Tele[facility] (BÁRBARAWS) SHANNON LEIJA ([id number]) 1940 F NFR Date Time Provider Department 08/05/24 GRISELDA LEMA During your visit today, we recorded the following information about you: Griselda Lema APRN.CNP 08/05/2024 7:23 AM Signed TSH still abnormal. Verify she is taking 1 tablet daily. If so, cut one tablet in half once daily and we will recheck in 4-6 weeks. Thank you Griselda ALMA Lema Jane, MA 08/05/2024 9:53 AM Signed Patient notified. Allergies As of Date: 08/05/2024 Noted Allergy Reaction LISINOPRIL 05/09/2022 3 - Cough SULFA (SULFONAMIDE ANTIBIOTICS) 07/04/2005 2 - Rash Comments: Childhood reaction. Date Reviewed: 2024 Reviewed by: Danika Avilez MA - Fully Assessed Reason for Visit: Results [95] Primary Visit Diagnosis:Acquired hypothyroidism [E03.9] Other Visit Diagnosis:Medication management [Z79.899] Order(s):THYROID STIMULATING HORMONE [SQTSH] Order #: [id number] FUTURE T4 FREE/FREE THYROXINE [SQFT4] Order #: [id number] FUTURE levothyroxine (SYNTHROID) 125 mcg tabletTake 1 tablet by mouth once daily. Except take 1/2 tablet on SundaysDisp: 90 tabletRfl: 3 Prescriptions as of 08/05/2024 - levothyroxine (SYNTHROID) 125 mcg tablet Take 1 tablet by mouth once daily. Except take 1/2 tablet on Sundays - SITagliptin phosphate (JANUVIA) 100 mg tablet Take 1 tablet by mouth once daily. - blood sugar diagnostic (Apogee PhotonicsUCH ULTRA TEST) test strip TEST 1 TIME [...] Tab Take 81 mg by mouth. - Fwflycyywbzlg-Bitjdign-Ygzj in (CENTRUM SILVER) tab Take 1 tablet [...] Status:Closed by DANIKA AVILEZ on 08/05/24 Normal [facility] TSH SerPl-aCncon 08-03-2024 TSH Qn 0.150 m[IU]/L Low 0.270-4.200 [facility] Comment on above: Order Comment: Speci men Type: BLOOD SPECIMENOrdering Facility: [facility] Address: [address] [place] [address] Performed By: #### 3 016-3 ####[facility] LABCLIA [id number] [facility] [id number] [place] [address] [facility] 06-24-2024 CNPN Telephone (INTMWS) SHANNON LEIJA ([id number]) 1940 F NFR Date Time Provider Department 06/24/24 DARIN ALONZO INTJeanWS During your visit today, we recorded the following information about you: Sarina Bobby RN 06/24/2024 11:16 AM Signed Patient calls and wanted office to know that she received her RSV Vaccine today at [facility] (06/24/2024) Patient also was checking with Griselda to see if she needed to get Dtap. Patient states that this was discussed in office that she had gotten a shot about a year ago when she went to [facility]. Patient making sure that she is not supposed to get another one. Please review and advise, SKY Espinosa Joy, APRN.OVERCOILER 06/24/2024 11:20 AM Signed No need to get one at this time. Thank you Griselda Lema APRN.Danika Rodriguez MA 06/24/2024 1:41 PM Signed Patient notified [...] mouth once daily. - blood sugar diagnostic (CarnivalTOUCH ULTRA TEST) test strip TEST 1 TIME [...] Tab Take 81 mg by mouth. - Msiypgenpfjzl-Wlteuxha-Onvv in (CENTRUM SILVER) tab Take 1 tablet [...] Encounter Status:Closed by DANIKA AVILEZ on 06/24/24 [facility] CNOVon 2024 CNOV Office Visit (INTMWS ) SHANNON LEIJA ([id number]) 1940 F NFR Date Time Provider Department 06/21/24 7:20 AM GRISELDA LEMA During your visit today, we recorded the following information about you: Pulse Respiration Blood pressure Weight 80/minute 16/minute 118/68 71.2 kg Griselda Lema APRN.OVERCOILER 2024 8:00 AM Signed CC: Patient presents [...] Sulfa (Sulfonamide Antibiotics) MEDICATIONS blood sugar diagnostic (CarnivalTOUCH ULTRA TEST) test strip TEST 1 TIME [...] day A (more content not included)... Normal [facility] CNOVon 06-14-2024 CN Office Visit (PULMWS ) SHANNON LEIJA ([id number]) 1940 F NFR Date Time Provider Department 06/14/24 9:00 AM DORIE GILL PULMWS During your visit today, we recorded the following information about you: Weight 71.7 kg Dorie Gill, CALCIMINER.OVERCOILER 06/14/2024 10:34 AM Signed Pulmonary Medicine Patients [...] TAKE 1 TABLET BY MOUTH TWICE DAILY Kdjkccxcnkltf-Xvxmknjb-Zemq in Tab Commonly known as: CENTRUM SILVER [...] lymphadenopathy Trans (more content not included)... Normal [facility] ALBUMIN/CREATININE RATIO, UR INEon 06-13-2024 Albumin DL <= 20 mg/L (U) [Mass/Vol] mg/dL Normal [facility] Comment on above: Order Comment: Speci men Type: URINE SPECIMENOrdering Facility: [facility] Address: [address] [place] [address] Performed By: #### U ACR ####[facility] [id number] [place] [address] [place] Albumin/Creatinine (U) [Mass ratio] <19 Normal <30 [facility] Comment on above: Order Comment: Speci men Type: URINE SPECIMENOrdering Facility: [facility] Address: [address] [place] [address] Result Comment: Adul t Male and Female Nephrotic Criteria: <30 mg/g is considered normal to mildly increased 30-300 mg/g is considered moderately increased >300 mg/g is considered severely increased KDIGO. (2013). KDIGO 2012 Clinical Practice Guideline for the Evaluation and Management of Chronic Kidney Disease. Official Journal of the International Society of Nephrology, 3(1), 1-150. Performed By: #### U ACR ####[facility] [id number] [place] [address] [place] Creatinine (U) [Mass/Vol] 64.7 mg/dL Normal 20.0-300.0 [facility] Comment on above: Order Comment: Speci men Type: URINE SPECIMENOrdering Facility: [facility] Address: [address] [place] [address] Performed By: #### U ACR ####[facility] [id number] [place] [address] [place] CBC panel Auto (Bld)on 06-13 Erythrocyte distribution width (RBC) [Ratio] 14.2 % Normal 11.5-15.0 [facility] Comment on above: Order Comment: Speci men Type: BLOOD SPECIMEN [facility] Address: [address] [place], [place] [address] Performed By: #### 5 8410-2 #### [facility] CLIA [id number] [address] [place] [address] [place] Hematocrit (Bld) [Volume fraction] 39.8 % Normal 36.0-46.0 [facility] Comment on above: Order Comment: Speci men Type: BLOOD SPECIMEN [facility] Address: [address] [place] [address] Performed By: #### 5 8410-2 #### [facility] CLIA [id number] [address] [place] [address] [place] Hemoglobin (Bld) [Mass/Vol] 12.5 g/dL Normal 11.5-15.5 [facility] Comment on above: Order Comment: Speci men Type: BLOOD SPECIMEN [facility] Address: [address] [place] [address] Performed By: #### 5 8410-2 #### [facility] CLIA [id number] [address] [place] [address] [place] MCH (RBC) [Entitic mass] 28.7 pg Normal 26.0-34.0 [facility] Comment on above: Order Comment: Speci men Type: BLOOD SPECIMEN [facility] Address: [address] [place] [address] Performed By: #### 5 8410-2 #### [facility] CLIA [id number] [address] [place] [address] [place] MCHC (RBC) [Mass/Vol] 31.4 g/dL Normal 30.5-36.0 [facility] Comment on above: Order Comment: Speci men Type: BLOOD SPECIMEN [facility] Address: [address] [place] [address] Performed By: #### 5 8410-2 #### [facility] CLIA [id number] [address] [place] [address] [place] MCV (RBC) [Entitic vol] 91.5 fL Normal 80.0-100.0 [facility] Comment on above: Order Comment: Speci men Type: BLOOD SPECIMEN [facility] Address: [address] [place] [address] Performed By: #### 5 8410-2 #### [facility] CLIA [id number] [address] [place] [address] [place] Nucleated RBC (Bld) [#/Vol] 10*3/uL Normal <0.01 [facility] Comment on above: Order Comment: Speci men Type: BLOOD SPECIMEN [facility] Address: [address] [place] [address] Performed By: #### 5 8410-2 #### [facility] CLIA [id number] [address] [place] [address] [place] Platelet mean volume (Bld) [Entitic vol] 10.6 fL Normal 9.0-12.7 [facility] Comment on above: Order Comment: Speci men Type: BLOOD SPECIMEN [facility] Address: [address] [place] [address] Performed By: #### 5 8410-2 #### [facility] CLIA [id number] [address] [place] [address] [place] Platelets (Bld) [#/Vol] 252 10*3/uL Normal 150-400 [facility] Comment on above: Order Comment: Speci men Type: BLOOD SPECIMEN [facility] Address: [address] [place] [address] Performed By: #### 5 8410-2 #### [facility] CLIA [id number] [address] [place] [address] [place] RBC (Bld) [#/Vol] 4.35 10*6/uL Normal 3.90-5.20 [facility] Comment on above: Order Comment: Speci men Type: BLOOD SPECIMEN [facility] Address: [address] [place] [address] Performed By: #### 5 8410-2 #### [facility] CLIA [id number] [address] [place] [address] [place] WBC (Bld) [#/Vol] 6.67 10*3/uL Normal 3.70-11.00 [facility] Comment on above: Order Comment: Speci men Type: BLOOD SPECIMEN [facility] Address: [address] [place] [address] Performed By: #### 5 8410-2 #### [facility] CLIA [id number] [address] [place] [address] [place] Comprehensive metabolic 2000 panelon 06-13-2024 Albumin [Mass/Vol] 3.9 g/dL Normal 3.9-4.9 [facility] Comment on above: Order Comment: Speci men Type: BLOOD SPECIMEN [facility] Address: [address] [place] [address] Performed By: #### 5 8410-2 #### [facility] CLIA [id number] [address] [place], [place] [address] [place] ALP [Catalytic activity/Vol] 57 U/L Normal 34-123 [facility] Comment on above: Order Comment: Speci men Type: BLOOD SPECIMEN [facility] Address: [address] [place], [place] [address] Performed By: #### 5 8410-2 #### [facility] CLIA [id number] [address] [place], [place] [address] [place] ALT [Catalytic activity/Vol] 20 U/L Normal 7-38 [facility] Comment on above: Order Comment: Speci men Type: BLOOD SPECIMEN [facility] Address: [address] [place], [place] [address] Performed By: #### 5 8410-2 #### [facility] CLIA [id number] [address] [place] [address] [place] Anion gap [Moles/Vol] 11 mmol/L Normal 8-15 [facility] Comment on above: Order Comment: Speci men Type: BLOOD SPECIMEN [facility] Address: [address] [place] [address] Performed By: #### 5 8410-2 #### [facility] CLIA [id number] [address] [place] [address] [place] AST [Catalytic activity/Vol] 24 U/L Normal 13-35 [facility] Comment on above: Order Comment: Speci men Type: BLOOD SPECIMEN [facility] Address: [address] [place] [address] Performed By: #### 5 8410-2 #### [facility] CLIA [id number] [address] [place] [address] [place] Bilirubin [Mass/Vol] 0.3 mg/dL Normal 0.2-1.3 [facility] Comment on above: Order Comment: Speci men Type: BLOOD SPECIMEN [facility] Address: [address] [place] [address] Performed By: #### 5 8410-2 #### [facility] CLIA [id number] [address] [place] [address] [place] Calcium [Mass/Vol] 9.6 mg/dL Normal 8.5-10.2 [facility] Comment on above: Order Comment: Speci men Type: BLOOD SPECIMEN [facility] Address: [address] [place] [address] Performed By: #### 5 8410-2 #### [facility] CLIA [id number] [address] [place], [place] [address] [place] Chloride [Moles/Vol] 100 mmol/L Normal 98-107 [facility] Comment on above: Order Comment: Speci men Type: BLOOD SPECIMEN [facility] Address: [address] [place] [address] Performed By: #### 5 8410-2 #### [facility] CLIA [id number] [address] [place] [address] [place] CO2 [Moles/Vol] 26 mmol/L Normal 22-30 [facility] Comment on above: Order Comment: Speci men Type: BLOOD SPECIMEN [facility]: [facility] Address: [address] [place] [address] Performed By: #### 5 8410-2 #### [facility] CLIA [id number] [address] [place] [address] [facility] Creatinine [Mass/Vol] 0.63 mg/dL Normal 0.58-0.96 [facility] Comment on above: Order Comment: Speci men Type: BLOOD SPECIMEN [facility]: [facility] Address: [address] [place] [address] Performed By: #### 5 8410-2 #### [facility] CLIA [id number] [address] [place] [address] Creatinine and Glomerular filtration rate.predicted panel (S/P/Bld) 89 mL/min/1.73m??? Normal >=60 [facility] Comment on above: Order Comment: Speci men Type: BLOOD SPECIMEN [facility] Address: [address] [place] [address] Result Comment: Shari mated Glomerular Filtration Rate [...] GFR. Performed By: #### 5 8410-2 #### [facility] CLIA [id number] [address] [place], [place] [address] [place] Glucose [Mass/Vol] 126 mg/dL High 74-99 [facility] Comment on above: Order Comment: Speci men Type: BLOOD SPECIMEN Ordering Facility: [facility] Address: [address] [place] [address] Result Comment: The [place] Diabetes Association (ADA) provides guidance for cutoff [...] Standards of Medical Care in Diabetes 2016, [place] Diabetes Association. Diabetes Care. 2016.39(Suppl 1). Performed By: #### 5 8410-2 #### [facility] CLIA [id number] [address] [place] [address] [place] Potassium [Moles/Vol] 4.6 mmol/L Normal 3.7-5.1 [facility] Comment on above: Order Comment: Otonieli tuan Type: BLOOD SPECIMEN Ordering Facility: [facility] Address: [address] [place] [address] Performed By: #### 5 8410-2 #### [facility] CLIA [id number] [address] [place], [place] [id number] [place] Protein [Mass/Vol] 7.2 g/dL Normal 6.3-8.0 [facility] Comment on above: Order Comment: Otonieli men Type: BLOOD SPECIMEN Ordering Facility: [facility] Address: [address] [place] [address] Performed By: #### 5 8410-2 #### [facility] CLIA [id number] [address] [place], [place] [id number] [place] Sodium [Moles/Vol] 137 mmol/L Normal 136-144 [facility] Comment on above: Order Comment: Saba dickerson Type: BLOOD SPECIMEN Ordering Facility: [facility] Address: [address] [place] [address] Performed By: #### 5 8410-2 #### [facility] CLIA [id number] [address] [place] [address] [place] Urea nitrogen [Mass/Vol] 19 mg/dL Normal 7-21 [facility] Comment on above: Order Comment: Saba dickerson Type: BLOOD SPECIMEN Ordering Facility: [facility] Address: [address] [place] [address] Performed By: #### 5 8410-2 #### [facility] CLIA [id number] [address] [place] [address] [place] HbA1c (Bld)on 06-13-2024 Average glucose Estimated from glycated hemoglobin (Bld) [Mass/Vol] 177 mg/dL Normal [facility] Comment on above: Order Comment: Saab dickerson Type: BLOOD SPECIMEN Ordering Facility: [facility] Address: [address] [place] [address] Result Comment: eAG: (Estimated average glucose) is a calculated value from HgbA1c and is ocean import representative of the average blood glucose level in the last 2-3 month period. Performed By: #### 5 8410-2 #### [facility] CLIA [id number] [address] [place] [address] [place] HbA1c (Bld) [Mass fraction] 7.8 % High 4.3-5.6 [facility] Comment on above: Order Comment: Saba dickerson Type: BLOOD SPECIMEN Ordering Facility: [facility] Address: [address] [place] [address] Result Comment: [place] Diabetes Association guidelines indicate that patients with HgbA1c in the range 5.7-6.4% are at increased risk for development of diabetes, and intervention by lifestyle modification may be beneficial. HgbA1c greater or equal to 6.5% is considered diagnostic of diabetes. Performed By: #### 5 8410-2 #### [facility] CLIA [id number] [address] [place] [address] [place] Lipid 1996 panelon 4 Cholesterol [Mass/Vol] 136 mg/dL Normal <200 [facility] Comment on above: Order Comment: Speci men Type: BLOOD SPECIMEN Ordering Facility: [facility] Address: [address] [place] [address] Result Comment: <200 mg/dL, Desirable 200-239 mg/dL, Borderline high >239 mg/dL, High Performed By: #### 5 8410-2 #### [facility] CLIA [id number] [address] [place] [address] [place] Cholesterol in HDL [Mass/Vol] 54 mg/dL Normal >39 [facility] Comment on above: Order Comment: Otonieli men Type: BLOOD SPECIMEN Ordering Facility: [facility] Address: [address] [place] [address] Result Comment: 40-5 9 mg/dL, Acceptable >59 mg/dL, High: Negative risk factor for coronary heart disease <40 mg/dL, Low: Positive risk factor for coronary heart disease Performed By: #### 5 8410-2 #### [facility] CLIA [id number] [address] [place] [address] [facility] Cholesterol in LDL [Mass/Vol] 71 mg/dL Normal <100 [facility] Comment on above: Order Comment: Otonieli men Type: BLOOD SPECIMEN Ordering Facility: [facility] Address: [address] [place] [address] Result Comment: <100 mg/dL, Optimal 100-129 mg/dL, Near optimal/above optimal 130-159 mg/dL, Borderline high 160-189 mg/dL, High >189 mg/dL, Very high Secondary prevention optimal LDL Cholesterol levels are recommended to be < 70 mg/dL Performed By: #### 5 8410-2 #### [facility] CLIA [id number] [address] [place] [address] [place] Cholesterol in LDL/Cholesterol in HDL [Mass ratio] 1.31 {ratio} Normal <2.54 [facility] Comment on above: Order Comment: Saba dickerson Type: BLOOD SPECIMEN Ordering Facility: [facility] Address: [address] [place] [address] Result Comment: Refe rence: 1. National Cholesterol Education Program ATP III Guideline At-A-Glance Quick Desk Reference: National Heart, Lung, and Blood [place]. National Institutes of Health. 2001: NIH Publication No. 01-3305. 2. An International Atherosclerosis Society position paper: global recommendations for the management of dyslipidemia: executive summary, Atherosclerosis. 2014: 232(2):410-413. Performed By: #### 5 8410-2 #### [facility] CLIA [id number] [address] [place] [address] [place] Cholesterol in VLDL [Mass/Vol] 11 mg/dL Normal <30 [facility] Comment on above: Order Comment: Saba dickerson Type: BLOOD SPECIMEN Ordering Facility: [facility] Address: [address] [place] [address] Performed By: #### 5 8410-2 #### [facility] CLIA [id number] [address] [place] [address] [place] Cholesterol non HDL [Mass/Vol] 82 mg/dL Normal <130 [facility] Comment on above: Order Comment: Saba dickerson Type: BLOOD SPECIMEN Ordering Facility: [facility] Address: [address] [place] [address] Result Comment: <130 mg/dL, Optimal 130-159 mg/dL, Near optimal/above optimal 160-189 mg/dL, Borderline high 190-219 mg/dL, High >219 mg/dL, Very high Secondary prevention optimal non HDL Cholesterol levels are recommended to be <100 mg/dL Performed By: #### 5 8410-2 #### [facility] CLIA [id number] [address] [place] [address] [place] Cholesterol.total/Ch olesterol in HDL [Mass ratio] 2.52 {ratio} Normal <5.10 [facility] Comment on above: Order Comment: Speci men Type: BLOOD SPECIMEN Ordering Facility: [facility] Address: [address] [place] [address] Performed By: #### 5 8410-2 #### [facility] CLIA [id number] [address] [place] [address] [facility] FASTING TIME 12 hrs Normal [facility] Comment on above: Order Comment: Speci men Type: BLOOD SPECIMEN Ordering Facility: [facility] Address: [address] [place] [address] Performed By: #### 5 8410-2 #### [facility] CLIA [id number] [address] [place] [address] Triglyceride [Mass/Vol] 54 mg/dL Normal <150 [facility] Comment on above: Order Comment: Speci men Type: BLOOD SPECIMEN Ordering Facility: [facility] Address: [address] [place] [address] Result Comment: <150 mg/dL, Normal 150-199 mg/dL, Borderline high 200-499 mg/dL, High >499 mg/dL, Very high Performed By: #### 5 8410-2 #### [facility] CLIA [id number] [address] [place] [address] [place] TSH SerPl-aCncon 06-13-2024 TSH Qn 0.173 m[IU]/L Low 0.270-4.200 [facility] Comment on above: Order Comment: Speci men Type: BLOOD SPECIMEN Ordering Facility: [facility] Address: [address] [place] [address] Performed By: #### 5 8410-2 #### [facility] CLIA [id number] [address] [place] [address] [place] CNPShruthi 04-25-2024 CNPN Telephone ([facility]) SHANNON LEIJA ([id number]) 1940 F NFR Date Time Provider Department [...] Tab Take 81 mg by mouth. - Clxcsapbqmzzi-Yaerlkfa-Lydb in ([employer]ILVER) tab Take 1 tablet [...] Encounter Status:Closed by JAC DUMONT on 06/03/24 Normal [facility] HEMOGLOBIN A1C (POC)on 03-21 HbA1c (Bld) [Mass fraction] 7.7 % Abnormal 4.3 - 5.6 % [facility] Comment on above: Location:[address], [facility] Point of care (POC) Hemoglobin A1c (HGBA1C) [...] specific diabetes management situations: The POC device chip crusher operator provides a normal range of 4.2% to 6.5% for the HGBA1C POC test. However, the [place] Diabetes Association guidelines indicate that patients with [...] and review of laboratory results Abnormal [facility] No Panel Informationon 04-10 IMPRESSION: No acute osseous findings right hip. Right hip joint is maintained. No acute osseous findings right ankle. Joint spaces are maintained Stove Polisher: [employer]ITA Transcribe Date/Time: Apr 10 2023 3:17P Dictated by : TACOS JUSTIN MD This examination was interpreted and the report reviewed and electronically signed by: TACOS JUSTIN MD on Apr 10 2023 3:20PM [facility] DIVISION OF RADIOLOGY Radiology Study observation (narrative) [facility] No Panel InformationOrdered By: Ccf Provider on 04-10-2023 [facility] XR Ankle - right AP and [...] thigh x 4-5 months. No injury. (accession [id number]), Right ankle weakness without pain x 4-5 months. No injury (accession [id number]) Tenderness of right hip (accession [id number]), Right ankle instability (accession [id number]) Right thigh pain Technique: XR HIP 3V [...] seen on radiograph. DIVISION OF RADIOLOGY Provider, [facility] - 04/10/2023 * * *Final Report* * [...] thigh x 4-5 months. No injury. (accession [id number]), Right ankle weakness without pain x 4-5 months. No injury (accession [id number]) Tenderness of right hip (accession [id number]), Right ankle instability (accession [id number]) Right thigh pain Technique: XR HIP 3V [...] findings right ankle. Joint spaces are maintained Stove Polisher: [facility] Transcribe Date/Time: Apr 10 2023 3:17P Dictated by : TACOS JUSTIN MD This examination was interpreted and the report reviewed and electronically signed by: TACOS JUSTIN MD on Apr 10 2023 3:20PM [facility] XR Pelvis and Hip - right AP [...] thigh x 4-5 months. No injury. (accession [id number]), Right ankle weakness without pain x 4-5 months. No injury (accession [id number]) Tenderness of right hip (accession [id number]), Right ankle instability (accession [id number]) Right thigh pain Technique: XR HIP 3V [...] seen on radiograph. DIVISION OF RADIOLOGY Provider, [facility] - 04/10/2023 * * *Final Report* * [...] thigh x 4-5 months. No injury. (accession [id number]), Right ankle weakness without pain x 4-5 months. No injury (accession [id number]) Tenderness of right hip (accession [id number]), Right ankle instability (accession [id number]) Right thigh pain Technique: XR HIP 3V [...] findings right ankle. Joint spaces are maintained Stove Polisher: [facility] Transcribe Date/Time: Apr 10 2023 3:17P Dictated by : TACOS JUSTIN MD This examination was interpreted and the report reviewed and electronically signed by: TACOS JUSTIN MD on Apr 10 2023 3:20PM EST [facility] XR Chest PA and Lateralon IMPRESSION: No acute radiographic abnormality. Stove Polisher: [employer] Transcribe Date/Time: Nov 08 2022 4:00P Dictated by : MAYELIN VORA MD This examination was interpreted and the report reviewed and electronically signed by: MAYELIN VORA MD on Nov 08 2022 4:02PM [facility] DIVISION OF RADIOLOGY * * *Final Report* [...] and degenerative changes. DIVISION OF RADIOLOGY Provider, [facility] 11/08/[facility]22 * * *Final Report* [...] changes. IMPRESSION IMPRESSION: No acute radiographic abnormality. Stove Polisher: SAVITA Transcribe Date/Time: Nov 08 2022 4:00P Dictated by : MAYELIN VORA MD This examination was interpreted and the report reviewed and electronically signed by: MAYELIN VORA MD on Nov 08 2022 4:02PM EST [facility] XR Chest PA and LateralOrder ed By: Ccf Provider on 11-08-2022 [facility] XR Chest PA and Lateralon Radiology Study observation (narrative) [facility] No Panel Informationon 08-22 [facility] Eosinophils Auto (Bld) [#/Vo l]on 07-15-2022 Eosinophils (Bld) [#/Vol] 0.17 10*3/uL <0.46 k/uL [facility] XR CHEST 2V FRONTAL/LATon [facility] XR Chest PA and Lateralon IMPRESSION: No acute radiographic abnormality. Stove Polisher: [employer]ITA Transcribe Date/Time: Jun 15 2022 9:00A Dictated by : OSMANY COLE MD This examination was interpreted and the report reviewed and electronically signed by: OSMANY COLE MD on Jun 15 2022 9:01AM [facility] DIVISION OF RADIOLOGY * * *Final Report* [...] pectus excavatum deformity DIVISION OF RADIOLOGY Provider, [facility] Osman Jauregui - 06/15/2022 * * *Final Report* * [...] deformity IMPRESSION IMPRESSION: No acute radiographic abnormality. Stove Polisher: [employer] Transcribe Date/Time: Jun 15 2022 9:00A Dictated by : OSMANY COLE MD This examination was interpreted and the report reviewed and electronically signed by: OSMANY COLE MD on Jun 15 2022 9:01AM EST [facility] Radiology Study observation (narrative) [facility] XR Chest PA and LateralOrder ed By: Ccf Provider on 06-15-2022 [facility] XR Chest PA and Lateralon IMPRESSION: Stable chronic interstitial changes. No superimposed acute radiographic abnormality. Stove Polisher: [employer] Transcribe Date/Time: Mar 22 2022 12:09P Dictated [...] noted. [id number]_[id number]_ USE_DIVISIO N OF RADIOLOGY Provider, Slim Jauregui - 03/22/2022 * * *Final Report* * [...] interstitial changes. No superimposed acute radiographic abnormality. Stove Polisher: SAVITA Transcribe Date/Time: Mar 22 2022 12:09P Dictated by : SARINA BAUGH MD This examination was interpreted and the report reviewed and electronically signed by: SARINA BAUGH MD on Mar 22 2022 12:11PM EST [facility] XR Chest PA and LateralOrder ed By: Ccf Provider on 03-22-2022 [facility] XR Chest PA and Lateralon Radiology Study observation (narrative) [facility] Absolute lymphocyte counton 03-11-2022 Lymphocytes Auto (Unsp spec) [#/Vol] 2.35 10*3/uL 0.83-4.51 [facility] Work Phone: Basophil percentageon 2021 Basophil percentage 2.2 mg/dL 2.5-4.9 [facility]: Basophils/100 WBC (Bld) 0.5 % 0-1 [facility] Work Phone: Chloride [Moles/Vol] 103 mmol/L 98-107 [facility] Work Phone: Cholesterol [Mass/Vol] 143 mg/dL <200 [facility] Work Phone: Comment on above: <200 mg/dL Desirable 200-240 mg/dL Borderline >240 mg/dL High Risk Eosinophils/100 WBC (Bld) 1.3 % 0-5 [facility] Work Phone: Glucose [Mass/Vol] 173 mg/dL 74-106 [facility] Work Phone: Comment on above: Fasting Glucose resu lt greater than or equal to 126 mg/dL suggests DIABETES MELLITUS per A.D.A. criteria. Neutrophils (Bld) [#/Vol] 4.7 10*3/uL 2.0-7.7 [facility] Work Phone: Neutrophils/100 WBC (Bld) 60.9 % 47-70 [facility] Work Phone: Potassium [Moles/Vol] 3.9 mmol/L 3.5-5.1 [facility] Work Phone: Sodium [Moles/Vol] 137 mmol/L 136-145 [facility] Work Phone: Triglyceride [Mass/Vol] 97 mg/dL <199 [facility] Work Phone: Comment on above: The drugs N-Acetylcy steine and Metamizole may falsely depress this assay.Serum Triglycerides Reference Interval Normal <150 mg/dL Borderline high 150 - 199 mg/dL High 200 - 499 mg/dL Very High > or = 500 mg/dL WBC (Bld) [#/Vol] 7.7 10*3/uL 4.4-11.0 [facility] Work Phone: Blood erythrocytes count (nu mber/volume)on 03-11-2022 RBC (Bld) [#/Vol] 4.19 10*6/uL 4.2-5.4 [facility] Work Phone: Blood hemoglobin measurement (mass/volume)on 03-11-2022 Hemoglobin (Bld) [Mass/Vol] 12.7 g/dL 12.0-15.0 [facility] Work Phone: Blood lymphocytes/100 leukoc yteson 03-11-2022 Lymphocytes/100 WBC (Bld) 30.4 % 19-41 [facility] Work Phone: Blood monocytes/100 leukocyt eson 03-11-2022 Monocytes/100 WBC (Bld) 6.6 % 0-10 [facility] Work Phone: Blood platelet mean volumeon 03-11-2022 Platelet mean volume (Bld) [Entitic vol] 9.9 fL 6.2-12.0 [facility] Work Phone: Determination of erythrocyte mean corpuscular volume (MCV)on 03-11-2022 MCV (RBC) [Entitic vol] 90.5 fL 81-99 [facility] Work Phone: Glucose Glucometer (BldC) [M ass/Vol]on 03-11-2022 Glucose [Mass/Vol] 280 mg/dL 74-106 [facility] Work Phone: Comment on above: MANAGEMENT OF PATIEN T CARE PER NURSING PROTOCOL Hematocrit Auto (Bld) [Volum e fraction]on 03-11-2022 Hematocrit (Bld) [Volume fraction] 37.9 % 37-47 [facility] Work Phone: Laboratory - Chemistry and C hemistry - challengeon 03-11-2022 CO2 [Moles/Vol] 27.0 mmol/L 21.0-32.0 [facility] Work Phone: Magnesium [Mass/Vol] 1.7 mg/dL 1.6-2.6 [facility] Work Phone: Urea nitrogen/Creatinine [Mass ratio] 21.0 mg/mg 10-20 [facility] Work Phone: Laboratory - Hematology and Cell countson 03-11-2022 Erythrocyte distribution width (RBC) [Entitic vol] 43.7 fL 35.1-43.9 [facility] Work Phone: Erythrocyte distribution width (RBC) [Ratio] 13.2 % 11.6-14.6 [facility] Work Phone: Immature granulocytes/100 WBC (Bld) 0.300 % 0.0-0.9 [facility] Work Phone: Comment on above: IG% - Immature Granu locytes (promyelocytes, myelocytes and metamyelocytes) > 1% indicates that a LEFT SHIFT is Present. MCH (RBC) [Entitic mass] 30.3 pg 27.0-32.0 [facility] Work Phone: Nucleated RBC/100 WBC (Bld) [Ratio] 0 % 0-5 [facility] Work Phone: MCHC Auto (RBC) [Mass/Vol]on 03-11-2022 MCHC (RBC) [Mass/Vol] 33.5 g/dL 32-36 [facility] Work Phone: No Panel Informationon 03-11 Estimated Creatinine Clearance Calc 41.05 ml/min [facility] Work Phone: Estimated GFR (MDRD) Amer 119 mL/min >60 [facility] Work Phone: Comment on above: GFR Calc Estimated GFR (MDRD) Non-Af Amer 99 mL/min >60 [facility] Work Phone: Comment on above: Non- GFR Calc Platelets bldon 03-11-2022 Platelets (Bld) [#/Vol] 219 10*3/uL 150-450 [facility] Work Phone: Serum or plasma calcium sharmin urement (mass/volume)on 03-11-2022 Calcium [Mass/Vol] 8.8 mg/dL 8.5-10.1 [facility] Work Phone: Serum or plasma cholesterol in HDL measurement (mass/volume)on 07-01-2022 Cholesterol in HDL [Mass/Vol] 57 mg/dL >40 [facility] Work Phone: Comment on above: The drugs N-Acetylcy steine and Metamizole may falsely depress this assay. Reference Range HDL <40 mg/dL Low HDL Cholesterol HDL >or= 60 mg/dL High HDL Cholesterol Serum or plasma cholesterol in VLDL measurement (mass/volume)on 03-11-2022 Cholesterol in VLDL [Mass/Vol] 19 mg/dL 5-40 [facility] Work Phone: Serum or plasma creatinine m easurement (mass/volume)on 03-11-2022 Creatinine [Mass/Vol] 0.62 mg/dL 0.55-1.02 [facility] Work Phone: Comment on above: The validity of the calculated GFR & GFRAA in patients over 70 years has not been determined. Clinical correlation is essential. Serum or plasma low density lipoprotein (LDL) cholesterol measurement (mass/volume)on 03-11-2022 Cholesterol in LDL [Mass/Vol] 67 mg/dL 0-130 [facility] Work Phone: Serum or plasma urea nitroge n measurement (mass/volume)on 03-11-2022 Urea nitrogen [Mass/Vol] 13 mg/dL 7-18 [facility] Work Phone: Thin prep Papanicolaou smear with manual screeningon 03-11-2022 Thin prep Papanicolaou smear with manual screening 7 5-15 [facility] Work Phone: Absolute lymphocyte counton 03-10-2022 Lymphocytes Auto (Unsp spec) [#/Vol] 2.05 10*3/uL 0.83-4.51 [facility] Work Phone: Basophil percentageon 2021 Basophils/100 WBC (Bld) 0.5 % 0-1 [facility] Work Phone: Chloride [Moles/Vol] 102 mmol/L 98-107 [facility] Work Phone: Eosinophils/100 WBC (Bld) 2.1 % 0-5 [facility] Work Phone: Glucose [Mass/Vol] 117 mg/dL 74-106 [facility] Work Phone: Comment on above: Fasting Glucose resu lt from 100 to 125 mg/dL suggests IMPAIRED HOMEOSTASIS per A.D.A. criteria. Neutrophils (Bld) [#/Vol] 5.0 10*3/uL 2.0-7.7 [facility] Work Phone: [phone] Neutrophils/100 WBC (Bld) 64.5 % 47-70 [facility] Work Phone: [phone] Potassium [Moles/Vol] 3.6 mmol/L 3.5-5.1 [facility] Work Phone: Comment on above: Slight Hemolysis, Re sult may be falsely increased. Sodium [Moles/Vol] 136 mmol/L 136-145 [facility] Work Phone: WBC (Bld) [#/Vol] 7.8 10*3/uL 4.4-11.0 [facility] Work Phone: Blood erythrocytes count (nu mber/volume)on 03-10-2022 RBC (Bld) [#/Vol] 4.43 10*6/uL 4.2-5.4 [facility] Work Phone: [phone] Blood hemoglobin measurement (mass/volume)on 03-10-2022 Hemoglobin (Bld) [Mass/Vol] 13.4 g/dL 12.0-15.0 [facility] Work Phone: [phone] Blood lymphocytes/100 leukoc yteson 03-10-2022 Lymphocytes/100 WBC (Bld) 26.3 % 19-41 [facility] Work Phone: [phone] Blood monocytes/100 leukocyt eson 03-10-2022 Monocytes/100 WBC (Bld) 6.3 % 0-10 [facility] Work Phone: [phone] Blood platelet mean volumeon 03-10-2022 Platelet mean volume (Bld) [Entitic vol] 9.9 fL 6.2-12.0 [facility] Work Phone: Determination of erythrocyte mean corpuscular volume (MCV)on 03-10-2022 MCV (RBC) [Entitic vol] 91.4 fL 81-99 [facility] Work Phone: Glucose Glucometer (BldC) [M ass/Vol]on 03-10-2022 Glucose [Mass/Vol] 114 mg/dL 74-106 [facility] Work Phone: Comment on above: MANAGEMENT OF PATIEN T CARE PER NURSING PROTOCOL Hematocrit Auto (Bld) [Volum e fraction]on 03-10-2022 Hematocrit (Bld) [Volume fraction] 40.5 % 37-47 [facility] Work Phone: INR in Blood by Coagulation assayon 03-10-2022 INR Coag (Bld) [Relative time] 1.0 {INR} [facility] Work Phone: Laboratory - Chemistry and C hemistry - challengeon 03-10-2022 CO2 [Moles/Vol] 30.0 mmol/L 21.0-32.0 [facility] Work Phone: Urea nitrogen/Creatinine [Mass ratio] 19.0 mg/mg 10-20 [facility] Work Phone: Laboratory - Coagulationon 0 03-10-2022 aPTT Coag (Bld) [Time] 27.0 s 24.1-36.2 [facility] Work Phone: PT Coag (PPP) [Time] 12.9 s 11.7-14.9 [facility] Work Phone: Laboratory - Hematology and Cell countson 03-10-2022 Erythrocyte distribution width (RBC) [Entitic vol] 44.5 fL 35.1-43.9 [facility] Work Phone: Erythrocyte distribution width (RBC) [Ratio] 13.3 % 11.6-14.6 [facility] Work Phone: Immature granulocytes/100 WBC (Bld) 0.300 % 0.0-0.9 [facility] Work Phone: Comment on above: IG% - Immature Granu locytes (promyelocytes, myelocytes and metamyelocytes) > 1% indicates that a LEFT SHIFT is Present. MCH (RBC) [Entitic mass] 30.2 pg 27.0-32.0 [facility] Work Phone: Nucleated RBC/100 WBC (Bld) [Ratio] 0 % 0-5 [facility] Work Phone: MCHC Auto (RBC) [Mass/Vol]on 03-10-2022 MCHC (RBC) [Mass/Vol] 33.1 g/dL 32-36 [facility] Work Phone: No Panel Informationon 03-10 Estimated Creatinine Clearance Calc 41.05 ml/min [facility] Work Phone: Estimated GFR (MDRD) Amer 90 mL/min >60 [facility] Work Phone: Comment on above: GFR Calc Estimated GFR (MDRD) Non-Af Amer 75 mL/min >60 [facility] Work Phone: Comment on above: Non- GFR Calc Thyroid Stimulating Hormone (TSH) 0.51 uIU/mL 0.358-3.74 [facility] Work Phone: Troponin I High Sensitivity 8 pg/mL 3.0-54.0 [facility] Work Phone: Comment on above: Please Note: New Kami t Units and Gender Specific Reference Ranges. For more information see Policy Stat Procedure [place] High Sensitivity Troponin (TNIH) and attachments. Platelets bldon 03-10-2022 Platelets (Bld) [#/Vol] 212 10*3/uL 150-450 [facility] Work Phone: Serum or plasma calcium sharmin urement (mass/volume)on 03-10-2022 Calcium [Mass/Vol] 9.0 mg/dL 8.5-10.1 [facility] Work Phone: Serum or plasma creatinine m easurement (mass/volume)on 03-10-2022 Creatinine [Mass/Vol] 0.79 mg/dL 0.55-1.02 [facility] Work Phone: Comment on above: The validity of the calculated GFR & GFRAA in patients over 70 years has not been determined. Clinical correlation is essential. Serum or plasma urea nitroge n measurement (mass/volume)on 03-10-2022 Urea nitrogen [Mass/Vol] 15 mg/dL 7-18 [facility] Work Phone: Thin prep Papanicolaou smear with manual screeningon 03-10-2022 Thin prep Papanicolaou smear with manual screening 4 5-15 [facility] Work Phone: Whole blood hemoglobin A1c/t otal hemoglobin ratio (mass fraction)on 03-10-2022 HbA1c (Bld) [Mass fraction] 6.7 % 3.8-5.6 [facility] Work Phone: Comment on above: Normal < 5.7 % Predi abetic 5.7 - 6.4 % Diabetic >or= 6.5 % Please note range changes. AFB Cult and Stainon 018 AFB Cult and Stain Smear Result - No ac id fast bacilli seen by fluorochrome stain Culture Result - No Acid Fast Bacilli isolated after 46 days Normal [facility] Comment on above: Performed By: #### A ####[facility], [place] [phone] BRIEF OP NOTon 10-27-2017 BRIEF OP NOT HNO ID: [id number] thor: Yashira Coyne: Pulmonary DiseaseAuthor Type: PhysicianType: Brief Op NoteFiled: 10/27/2017 11:58 AMNote Text:10/27/2017Shannon Leija [id number] bronchoscopy with endobronchial biopsy of the right middle lobebronchus and bronchial washing of the entire tracheobronchial tree.Pre-procedure Dx: Chronic cough. Follicular bronchitis.Post-procedure Dx: Same.Medications: Oxygen, Xylocaine topical, Midazolam, Fentanyl.Findings: Streaky secretions on posterior wall of the nasopharynx. Milddiffuse erythema of the tracheobronchial tree.Accomplished with ease.Tolerated well.Complications: No blood loss, chest pain, hypoxemia.Specimens: L endobronchial biopsy for histopathology. Bronchial washingfor microbiology analysis.Full note in Provation.Yashira Giordano MD, [facility] Medical Office Building [address] [address]M: [phone]: [phone] [facility] Fungal Cultureon 10-27-2017 Fungal Culture Sp. Request/Comment: - Specimen received in sterile container. Culture Result - No Fungus isolated after [address] [facility] Comment on above: Performed By: #### F CUL ####[facility] [address], [place] [phone] Fungal Smearon 10-27-2017 Fungal Smear Sp. Request/Comment: - Specimen received in sterile container. Smear Result - No fungus seen. [facility] Comment on above: Performed By: #### F UNGSM ####[facility], [place] [phone] HISTORY PHYSICALon 8 HISTORY PHYSICAL HNO ID: [id number] thor: Yashira GiordanoService: Pulmonary DiseaseAuthor Type: PhysicianType: [...] October 27, 2017 : 10:39 AM PAGER: [id number] [facility] NURSING PROGon 10-27-2017 NURSING PROG HNO ID: [id number] thor: Darleen (Rn) Susan, RNService: NursingAuthor Type: Registered NurseType: Nursing Progress NoteFiled: 10/27/2017 11:05 AMNote Text: Nursing Progress NotePatient Name: Shannon LeungsMRN: [id number] Location: [place] [facility] pt ready for OR, call light in reach, pt ok for friend to stay in waitingroom a this time, Needs consent signed prior to ORThis note was completed by: Darleen Davis RN [facility] OPERATIVE NOon 10-27-2017 OPERATIVE NO HNO ID: [id number] thor: Yashira Coyne: Pulmonary DiseaseAuthor Type: PhysicianType: Operative ReportFiled: 10/27/2017 11:58 AMNote Text:10/27/2017Shannon Leija [id number] bronchoscopy with endobronchial biopsy of the right [...] microbiology analysis.Full note in Provation.Yashira Giordano MD, [facility] Medical [facility] Building [address] [address]C: [phone]: [phone] [facility] PROCEDUREon 10-27-2017 PROCEDURE HNO ID: [id number] thor: Yashira Coyne: Pulmonary DiseaseAuthor Type: PhysicianType: ProceduresFiled: 10/27/2017 11:58 AMNote Text:10/27/2017Shannon Leija [id number] bronchoscopy with endobronchial biopsy of the right [...] microbiology analysis.Full note in Provation.Yashira Giordano MD, [facility] Building [address] [address]A: [phone]: [phone] [facility] PT EDon 10-27-2017 PT ED HNO ID: [id number] thor: Michael GambinoRn) ARUNA Carlisleervice: NursingAuthor Type: [...] Signed By: Michael Carlisle RN [facility] PT ED HNO ID: [id number] thor: Darleen GambinoRn) Susan, ARUNAervice: NursingAuthor Type: Registered NurseType: Patient EducationFiled: 10/27/2017 11:08 AMNote Text:PRE OP LEARNING ASSESSMENTPROCEDURE/SURGERY : SURGERY: BronchoscopyREADINESS TO LEARNCOGNITIVE ABILITY: Alert and orientedMOTIVATION TO LEARN: EagerFAMILY SUPPORT: friend out in waiting roomPATIENT LEARNS BEST BY: Written Instruction - Hand-outsVerbal InstructionFACTORS AFFECTING LEARNING: NonePHYSICAL LIMITATIONS AFFECTING LEARNING: NoneElectronically Signed By: Darleen Davis RN [facility] Respiratory Cult/Stainon Respiratory Cult/Stain Smear Result - Rare Gram positive cocci --> ABNORMAL ALERT Few Polymorphonuclear leukocytes Few Mononuclear cells Culture Result - Few Normal respiratory stewart present Critically abnormal [facility] Comment on above: Performed By: #### R CULST ####[facility], [place] [phone] SURGICAL PATHOLOGYon 018 SURGICAL PATHOLOGY [facility]: [id number] Physician: Yashira Giordano M.D. FIN AL DIAGNOSISLung, right middle lobe bronchus, biopsy - Fragments of bronchialmucosa/bronchial wall with no significant pathologic changes. (Seecomment). COMMENTThere is no evidence of significant inflammation or follicularbronchiolitis in this sample. No granulomas or malignant cells areidentified. Denny Forman M.D.(Electronic Signature) SPEC IMEN SUBMITTEDA: RML BRONCHUS CLINICAL DATAFOLLICULAR BRONCHITIS ON 2010 BIOPSY. REFRACTORY COUGH., LMP: POSTMENOPAUSAL.GROSS DESCRIPTIONA. Received in formalin are multiple pieces of red-brown, soft tissueaggregating to 0.5 x 0.1 x 0.1 cm. Totally submitted in one cassette.Gross examination performed at [facility], [address] [place] [id number] 10/27/2017 3:27:21 PMPatient ID #: [id number] of Report: 10/30/2017Date of Procedure: 10/27/2017Date of Receipt: 10/27/2017Submitted by: Yashira Giordano M.D.Location: MEENDDiagnostic interpretation performed at [address] [address] [facility] Comment on above: Performed By: #### P ATHS ####[facility] [address] [place] [phone] HOSPon 10-18-2017 HOSP Patient:Madi Leija AMRN: Height:5' [...] tabletsimvastatin (ZOCOR) 10 mg tabletAspirin 81 mg EtfNoypeunhrnqmf-Jskdhjca-V utein (CENTRUM SILVER) ORAL Tabblood sugar diagnostic [...] days for the following basenames: K,HCTProgress Notes ([facility]):Charisse Lagos LPN 10/13/2017 11:07 AM SignedPatient phones requesting refills as follows:Pending Prescriptions Disp Refills FLUTICASONE 50 MCG/ACTUATION NASAL SPRAY,SUSPENSION 3 Bottle 3 Sig: Use 1 [place] in each nostril daily at bedtime. Please review and advise.Charisse Lagos LPNProgress Notes ([facility]):Laura Saleh LLUVIA 10/09/2017 12:28 PM SignedPatient returning call in regards to the my chart message. States she has seenDr. Rodriguez in the past for ear problems. Is willing to go to [place] or where yourecommend.Yashira Giordano MD 10/13/2017 5:10 PM SignedPatient familiar to me.I can proceed with outpatient Flexible bronchoscopy in [place] 10/25 or 10/27.Order placed.Yashira Giordano MD, [facility] Medical [facility] Building [address] [address]T: [phone]: [phone] Mack [facility] 10/18/2017 10:43 AM SignedSpoke with patient, she has been scheduled for 10/27 at 12:00 as requested. Normal [facility] Vital Signs Date Time Vital Sign Value Performing Clinician Facility 03-07-2025 07:02-0400 Body mass index (BMI) [Ratio] 26.13 kg/m2 Griselda Older CALCIMINER.OVERCOILER Work Phone: [facility] 03-07-2025 07:02-0400 Body weight 71.22 kg CALCIMINER.OVERCOILER Work Phone: [facility] 03-07-2025 07:02-0400 Diastolic blood pressure 60 mm[Hg] CALCIMINER.OVERCOILER Work Phone: [facility] 03-07-2025 07:02-0400 Heart rate 84 /min Griselda Older CALCIMINER.OVERCOILER Work Phone: [facility] 03-07-2025 07:02-0400 Respiratory rate 16 /min Griselda CALCIMINER.OVERCOILER Work Phone: [facility] 03-07-2025 07:02-0400 SaO2% (BldA) [Mass fraction] 97 % CALCIMINER.OVERCOILER Work Phone: [facility] 03-07-2025 07:02-0400 Systolic blood pressure 122 mm[Hg] CALCIMINER.OVERCOILER Work Phone: [facility] 02-07-2025 07:03-0400 Body mass index (BMI) [Ratio] 26.46 kg/m2 Griselda Older CALCIMINER.OVERCOILER Work Phone: [facility] 02-07-2025 07:03-0400 Body weight 72.12 kg Griselda Older CALCIMINER.OVERCOILER Work Phone: [facility] 02-07-2025 07:03-0400 Diastolic blood pressure 64 mm[Hg] Griselda Older CALCIMINER.OVERCOILER Work Phone: [facility] 02-07-2025 07:03-0400 Heart rate 74 /min Griselda Older CALCIMINER.OVERCOILER Work Phone: [facility] 02-07-2025 07:03-0400 Respiratory rate 16 /min Griselda Older CALCIMINER.OVERCOILER Work Phone: [facility] 02-07-2025 07:03-0400 SaO2% (BldA) [Mass fraction] 98 % Griselda Older CALCIMINER.OVERCOILER Work Phone: [facility] 02-07-2025 07:03-0400 Systolic blood pressure 136 mm[Hg] Griselda Older CALCIMINER.OVERCOILER Work Phone: [facility] 01-10-2025 07:10-0400 Body mass index (BMI) [Ratio] 26.29 kg/m2 Griselda Older CALCIMINER.OVERCOILER Work Phone: [facility] 01-10-2025 07:10-0400 Body weight 71.67 kg Griselda Older CALCIMINER.OVERCOILER Work Phone: [facility] 01-10-2025 07:10-0400 Diastolic blood pressure 68 mm[Hg] Griselda Older CALCIMINER.OVERCOILER Work Phone: [facility] 01-10-2025 07:10-0400 Heart rate 78 /min Griselda Older CALCIMINER.OVERCOILER Work Phone: [facility] 01-10-2025 07:10-0400 Respiratory rate 16 /min Griselda Older CALCIMINER.OVERCOILER Work Phone: [facility] 01-10-2025 07:10-0400 SaO2% (BldA) [Mass fraction] 99 % Griselda Older CALCIMINER.OVERCOILER Work Phone: [facility] 01-10-2025 07:10-0400 Systolic blood pressure 130 mm[Hg] Griselda Older CALCIMINER.OVERCOILER Work Phone: [facility] 12-13-2024 07:56-0400 Body mass index (BMI) [Ratio] 25.79 kg/m2 Dorie Click CALCIMINER.OVERCOILER Work Phone: [facility] 12-13-2024 07:56-0400 Body weight 70.31 kg Dorie Click CALCIMINER.OVERCOILER Work Phone: [facility] 12-13-2024 07:56-0400 Diastolic blood pressure 64 mm[Hg] Dorie Click CALCIMINER.OVERCOILER Work Phone: [facility] 12-13-2024 07:56-0400 Heart rate 82 /min Dorie Click CALCIMINER.OVERCOILER Work Phone: [facility] 12-13-2024 07:56-0400 Respiratory rate 17 /min Dorie Click CALCIMINER.OVERCOILER Work Phone: [facility] 12-13-2024 07:56-0400 SaO2% (BldA) [Mass fraction] 99 % Dorie Click CALCIMINER.OVERCOILER Work Phone: [facility] 12-13-2024 07:56-0400 Systolic blood pressure 130 mm[Hg] Dorie Click CALCIMINER.OVERCOILER Work Phone: [facility] 10-11-2024 08:20-0500 Diastolic blood pressure 68 mm[Hg] Griselda Older CALCIMINER.OVERCOILER Work Phone: [facility] Comment on above: BP Elan 10-11-2024 08:20-0500 Systolic blood pressure 132 mm[Hg] Griselda Older CALCIMINER.OVERCOILER Work Phone: [facility] Comment on above: BP Elan 10-11-2024 07:55-0500 Body mass index (BMI) [Ratio] 26.13 kg/m2 Griselda Older CALCIMINER.OVERCOILER Work Phone: [facility] 10-11-2024 07:55-0500 Body weight 71.22 kg Griselda Older CALCIMINER.OVERCOILER Work Phone: [facility] 10-11-2024 07:55-0500 Heart rate 84 /min Griselda Older CALCIMINER.OVERCOILER Work Phone: [facility] 10-11-2024 07:55-0500 Respiratory rate 16 /min Griselda Older CALCIMINER.OVERCOILER Work Phone: [facility] 10-11-2024 07:55-0500 SaO2% (BldA) [Mass fraction] 98 % Griselda Older CALCIMINER.OVERCOILER Work Phone: [facility] 2024 07:22-0400 Body mass index (BMI) [Ratio] 26.13 kg/m2 Griselda Older CALCIMINER.OVERCOILER Work Phone: [facility] 2024 07:22-0400 Body weight 71.22 kg Griselda Older CALCIMINER.OVERCOILER Work Phone: [facility] Comment on above: shoes on 2024 07:22-0400 Diastolic blood pressure 68 mm[Hg] Griselda Older CALCIMINER.OVERCOILER Work Phone: [facility] 2024 07:22-0400 Heart rate 80 /min Griselda Older CALCIMINER.OVERCOILER Work Phone: [facility] 2024 07:22-0400 Respiratory rate 16 /min Griselda Older CALCIMINER.OVERCOILER Work Phone: [facility] 2024 07:22-0400 SaO2% (BldA) [Mass fraction] 97 % Griselda Older CALCIMINER.OVERCOILER Work Phone: [facility] 2024 07:22-0400 Systolic blood pressure 118 mm[Hg] Griselda Older CALCIMINER.OVERCOILER Work Phone: [facility] 06-14-2024 08:51-0400 Body mass index (BMI) [Ratio] 26.29 kg/m2 Dorie Click CALCIMINER.OVERCOILER Work Phone: [facility] 06-14-2024 08:51-0400 Body weight 71.67 kg Dorie Click CALCIMINER.OVERCOILER Work Phone: [facility] 03-21-2024 07:20-0400 Body mass index (BMI) [Ratio] 25.29 kg/m2 Griselda Older CALCIMINER.OVERCOILER Work Phone: [facility] 03-21-2024 07:20-0400 Body weight 68.95 kg Griselda Older CALCIMINER.OVERCOILER Work Phone: [facility] 03-21-2024 07:20-0400 Diastolic blood pressure 68 mm[Hg] Griselda Older CALCIMINER.OVERCOILER Work Phone: [facility] 03-21-2024 07:20-0400 Heart rate 99 /min Griselda Older CALCIMINER.OVERCOILER Work Phone: [facility] 03-21-2024 07:20-0400 Respiratory rate 16 /min Griselda Older CALCIMINER.OVERCOILER Work Phone: [facility] 03-21-2024 07:20-0400 SaO2% (BldA) [Mass fraction] 99 % Griselda Older CALCIMINER.OVERCOILER Work Phone: [facility] 03-21-2024 07:20-0400 Systolic blood pressure 134 mm[Hg] Griselda Older CALCIMINER.OVERCOILER Work Phone: [facility] 02-22-2024 15:20-0400 Body mass index (BMI) [Ratio] 26.41 kg/m2 Darleen Orr CALCIMINER.OVERCOILER Work Phone: [facility] 02-22-2024 15:20-0400 Body temperature 97.81 [degF] Darleen Orr CALCIMINER.OVERCOILER Work Phone: [facility] 02-22-2024 15:20-0400 Body weight 72 kg Darleen Orr CALCIMINER.OVERCOILER Work Phone: [facility] 02-22-2024 15:20-0400 Diastolic blood pressure 79 mm[Hg] Darleen Orr CALCIMINER.OVERCOILER Work Phone: [facility] 02-22-2024 15:20-0400 Heart rate 78 /min Darleen Orr CALCIMINER.OVERCOILER Work Phone: [facility] 02-22-2024 15:20-0400 Respiratory rate 20 /min Darleen Orr CALCIMINER.OVERCOILER Work Phone: [facility] 02-22-2024 15:20-0400 SaO2% (BldA) [Mass fraction] 98 % Darleen Orr CALCIMINER.OVERCOILER Work Phone: [facility] 02-22-2024 15:20-0400 Systolic blood pressure 169 mm[Hg] Darleen Orr CALCIMINER.OVERCOILER Work Phone: [facility] 12-15-2023 07:20-0400 Body weight 72.12 kg Griselda Older CALCIMINER.OVERCOILER Work Phone: [facility] 12-15-2023 07:20-0400 Diastolic blood pressure 70 mm[Hg] Griselda Older CALCIMINER.OVERCOILER Work Phone: [facility] 12-15-2023 07:20-0400 Heart rate 72 /min Griselda Older CALCIMINER.OVERCOILER Work Phone: [facility] 12-15-2023 07:20-0400 Respiratory rate 16 /min Griselda Older CALCIMINER.OVERCOILER Work Phone: [facility] 12-15-2023 07:20-0400 SaO2% (BldA) [Mass fraction] 98 % Griselda Older CALCIMINER.OVERCOILER Work Phone: [facility] 12-15-2023 07:20-0400 Systolic blood pressure 128 mm[Hg] Griselda Older CALCIMINER.OVERCOILER Work Phone: [facility] 11-28-2023 09:58-0400 Body weight 73.12 kg Pamela Aranda MD Work Phone: [facility] 11-28-2023 09:58-0400 Diastolic blood pressure 52 mm[Hg] Pamela Aranda MD Work Phone: [facility] 11-28-2023 09:58-0400 Heart rate 73 /min Pamela Aranda MD Work Phone: [facility] 11-28-2023 09:58-0400 Respiratory rate 14 /min Pamela Aranda MD Work Phone: [facility] 11-28-2023 09:58-0400 SaO2% (BldA) [Mass fraction] 96 % Pamela Aranda MD Work Phone: [facility] 11-28-2023 09:58-0400 Systolic blood pressure 116 mm[Hg] Pamela Aranda MD Work Phone: [facility] 05-29-2023 10:23-0400 Body height 165.1 cm Pamela Aranda MD Work Phone: [facility] 05-29-2023 10:23-0400 Body weight 73.48 kg Pamela Aranda MD Work Phone: [facility] 05-29-2023 10:23-0400 Diastolic blood pressure 60 mm[Hg] Pamela Aranda MD Work Phone: [facility] 05-29-2023 10:23-0400 Heart rate 76 /min Pamela Aranda MD Work Phone: [facility] 05-29-2023 10:23-0400 Respiratory rate 21 /min Pamela Aranda MD Work Phone: [facility] 05-29-2023 10:23-0400 SaO2% (BldA) [Mass fraction] 97 % Pamela Aranda MD Work Phone: [facility] 05-29-2023 10:23-0400 Systolic blood pressure 132 mm[Hg] Pamela Aranda MD Work Phone: [facility] 05-19-2023 08:41-0400 Body weight 71.67 kg Griselda Lema APRN.CNP Work Phone: [facility] 05-19-2023 08:41-0400 Diastolic blood pressure 68 mm[Hg] Griselda Older CALCIMINER.OVERCOILER Work Phone: [facility] 05-19-2023 08:41-0400 Heart rate 78 /min Griselda Older CALCIMINER.OVERCOILER Work Phone: [facility] 05-19-2023 08:41-0400 Respiratory rate 16 /min Griselda Older CALCIMINER.OVERCOILER Work Phone: [facility] 05-19-2023 08:41-0400 SaO2% (BldA) [Mass fraction] 98 % Griselda Older CALCIMINER.OVERCOILER Work Phone: [facility] 05-19-2023 08:41-0400 Systolic blood pressure 128 mm[Hg] Griselda Older CALCIMINER.OVERCOILER Work Phone: [facility] 05-17-2023 11:29-0400 Body height 162.[address] Darin Alonzo Work Phone: [facility] 05-17-2023 11:29-0400 Body weight 72.[address] Darin Alonzo Work Phone: [facility] 04-11-2023 12:07-0400 Body height 162.[address] Darin Alonzo Work Phone: [facility] 04-11-2023 12:07-0400 Body weight 74.[address] Darin Alonzo Work Phone: [facility] 04-10-2023 07:57-0400 Body temperature 98.01 [degF] Griselda Older CALCIMINER.OVERCOILER Work Phone: [facility] 04-10-2023 07:57-0400 Body weight 73.48 kg Griselda Older CALCIMINER.OVERCOILER Work Phone: [facility] 04-10-2023 07:57-0400 Diastolic blood pressure 70 mm[Hg] Griselda Older CALCIMINER.OVERCOILER Work Phone: [facility] 04-10-2023 07:57-0400 Heart rate 76 /min Griselda Older CALCIMINER.OVERCOILER Work Phone: [facility] 04-10-2023 07:57-0400 Respiratory rate 16 /min Griselda Older CALCIMINER.OVERCOILER Work Phone: [facility] 04-10-2023 07:57-0400 SaO2% (BldA) [Mass fraction] 100 % Griselda Older CALCIMINER.OVERCOILER Work Phone: [facility] 04-10-2023 07:57-0400 Systolic blood pressure 142 mm[Hg] Griselda Older CALCIMINER.OVERCOILER Work Phone: [facility] 03-21-2023 11:30-0400 Body temperature 98.2 [degF] Dr. Darin Alonzo Work Phone: [facility] 03-21-2023 11:30-0400 Body weight 73.[address] Darin Alonzo Work Phone: [facility] 03-21-2023 11:30-0400 Diastolic blood pressure 73 mm[Hg] Dr. Darin Alonzo Work Phone: [facility] 03-21-2023 11:30-0400 Heart rate 73 /min Dr. Darin Alonzo Work Phone: [facility] 03-21-2023 11:30-0400 Respiratory rate 16 /min Dr. Darin Alonzo Work Phone: [facility] 03-21-2023 11:30-0400 SaO2% (BldA) [Mass fraction] 99 % Dr. Darin Alonzo Work Phone: [facility] 03-21-2023 11:30-0400 Systolic blood pressure 151 mm[Hg] Dr. Darin Alonzo Work Phone: [facility] 03-01-2023 11:15-0400 Body height 162.6 cm Darin Alonzo MD Work Phone: [facility] 03-01-2023 11:15-0400 Body temperature 97 [degF] Darin Alonzo MD Work Phone: [facility] 03-01-2023 11:15-0400 Body weight 73.03 kg Darin Alonzo MD Work Phone: [facility] 03-01-2023 11:15-0400 Diastolic blood pressure 62 mm[Hg] Darin Alonzo MD Work Phone: [facility] 03-01-2023 11:15-0400 Heart rate 84 /min Darin Alonzo MD Work Phone: [facility] 03-01-2023 11:15-0400 Respiratory rate 12 /min Darin Alonzo MD Work Phone: [facility] 03-01-2023 11:15-0400 SaO2% (BldA) [Mass fraction] 97 % Darin Alonzo MD Work Phone: [facility] 03-01-2023 11:15-0400 Systolic blood pressure 136 mm[Hg] Darin Alonzo MD Work Phone: [facility] 11-25-2022 09:52-0400 Body height 162.6 cm Pamela Aranda MD Work Phone: [facility] 11-25-2022 09:52-0400 Body weight 73.48 kg Pamela Aranda MD Work Phone: [facility] 11-25-2022 09:52-0400 Diastolic blood pressure 68 mm[Hg] Pamela Aranda MD Work Phone: [facility] 11-25-2022 09:52-0400 Heart rate 82 /min Pamela Aranda MD Work Phone: [facility] 11-25-2022 09:52-0400 Respiratory rate 12 /min Pamela Aranda MD Work Phone: [facility] 11-25-2022 09:52-0400 SaO2% (BldA) [Mass fraction] 96 % Pamela Aranda MD Work Phone: [facility] 11-25-2022 09:52-0400 Systolic blood pressure 132 mm[Hg] Pamela Aranda MD Work Phone: [facility] 11-25-2022 09:41-0400 Body height 162.6 cm Pulm Wstr Work Phone: [facility] 11-25-2022 09:41-0400 Body weight 73.48 kg Pulm Wstr Work Phone: [facility] 11-25-2022 09:41-0400 Heart rate 82 /min Pulm Wstr Work Phone: [facility] 11-25-2022 09:41-0400 Respiratory rate 12 /min Pulm Wstr Work Phone: [facility] 11-25-2022 09:41-0400 SaO2% (BldA) [Mass fraction] 96 % Pulm Wstr Work Phone: [facility] 11-01-2022 07:57-0500 Body height 162.6 cm Darin Alonzo MD Work Phone: [facility] 11-01-2022 07:57-0500 Body temperature 97.39 [degF] Darin Alonzo MD Work Phone: [facility] 11-01-2022 07:57-0500 Body weight 73.48 kg Darin Alonzo MD Work Phone: [facility] 11-01-2022 07:57-0500 Diastolic blood pressure 64 mm[Hg] Darin Alonzo MD Work Phone: [facility] 11-01-2022 07:57-0500 Heart rate 82 /min Darin Alonzo MD Work Phone: [facility] 11-01-2022 07:57-0500 Respiratory rate 12 /min Darin Alonzo MD Work Phone: [facility] 11-01-2022 07:57-0500 SaO2% (BldA) [Mass fraction] 97 % Darin Alonzo MD Work Phone: [facility] 11-01-2022 07:57-0500 Systolic blood pressure 130 mm[Hg] Darin Alonzo MD Work Phone: [facility] 08-01-2022 08:37-0500 Body height 162.6 cm Darin Alonzo MD Work Phone: [facility] 08-01-2022 08:37-0500 Body temperature 97.7 [degF] Darin Alonzo MD Work Phone: [facility] 08-01-2022 08:37-0500 Body weight 74.39 kg Darin Alonzo MD Work Phone: [facility] 08-01-2022 08:37-0500 Diastolic blood pressure 62 mm[Hg] Darin Alonzo MD Work Phone: [facility] 08-01-2022 08:37-0500 Heart rate 83 /min Darin Alonzo MD Work Phone: [facility] 08-01-2022 08:37-0500 Respiratory rate 12 /min Darin Alonzo MD Work Phone: [facility] 08-01-2022 08:37-0500 SaO2% (BldA) [Mass fraction] 99 % Darin Alonzo MD Work Phone: [facility] 08-01-2022 08:37-0500 Systolic blood pressure 130 mm[Hg] Darin Alonzo MD Work Phone: [facility] 07-15-2022 08:57-0400 Body weight 74.84 kg Christy Clay PA-C Work Phone: [facility] 07-15-2022 08:57-0400 Diastolic blood pressure 80 mm[Hg] Christy Clay PA-C Work Phone: [facility] 07-15-2022 08:57-0400 Heart rate 81 /min Christy Clay PA-C Work Phone: [facility] 07-15-2022 08:57-0400 Respiratory rate 15 /min Christy Clay PA-C Work Phone: [facility] 07-15-2022 08:57-0400 SaO2% (BldA) [Mass fraction] 99 % Christy Clay PA-C Work Phone: [facility] 07-15-2022 08:57-0400 Systolic blood pressure 138 mm[Hg] Christy Clay PA-C Work Phone: [facility] 06-17-2022 12:59-0400 Body weight 73.94 kg Christy Clay PA-C Work Phone: [facility] 06-17-2022 12:59-0400 Diastolic blood pressure 80 mm[Hg] Christy Clay PA-C Work Phone: [facility] 06-17-2022 12:59-0400 Heart rate 99 /min Christy Clay PA-C Work Phone: [facility] 06-17-2022 12:59-0400 Respiratory rate 19 /min Christy Clay PA-C Work Phone: [facility] 06-17-2022 12:59-0400 SaO2% (BldA) [Mass fraction] 98 % Christy Clay PA-C Work Phone: [facility] 06-17-2022 12:59-0400 Systolic blood pressure 142 mm[Hg] Christy Clay PA-C Work Phone: [facility] 06-15-2022 07:59-0400 Body temperature 97.7 [degF] Griselda Older CALCIMINER.OVERCOILER Work Phone: [facility] 06-15-2022 07:59-0400 Body weight 75.3 kg Griselda Older CALCIMINER.OVERCOILER Work Phone: [facility] 06-15-2022 07:59-0400 Diastolic blood pressure 78 mm[Hg] Griselda Older CALCIMINER.OVERCOILER Work Phone: [facility] 06-15-2022 07:59-0400 Heart rate 82 /min Griselda Older CALCIMINER.OVERCOILER Work Phone: [facility] 06-15-2022 07:59-0400 Respiratory rate 16 /min Griselda Older CALCIMINER.OVERCOILER Work Phone: [facility] 06-15-2022 07:59-0400 SaO2% (BldA) [Mass fraction] 99 % Griselda Lema CALCIMINER.OVERCOILER Work Phone: [facility] 06-15-2022 07:59-0400 Systolic blood pressure 140 mm[Hg] Griselda Older CALCIMINER.OVERCOILER Work Phone: [facility] 06-02-2022 12:34-0400 Body temperature 97.7 [degF] [facility] CALCIMINER.OVERCOILER Work Phone: [facility] 06-02-2022 12:34-0400 Body weight 75.57 kg [facility] CALCIMINER.OVERCOILER Work Phone: [facility] 06-02-2022 12:34-0400 Diastolic blood pressure 78 mm[Hg] [facility] CALCIMINER.OVERCOILER Work Phone: [facility] 06-02-2022 12:34-0400 Heart rate 85 /min [facility] CALCIMINER.OVERCOILER Work Phone: [facility] 06-02-2022 12:34-0400 [facility] rate 21 /[facility] Work Phone: [facility] 06-02-2022 12:34-0400 SaO2% (BldA) [Mass fraction] 98 % [facility] CALCIMINER.OVERCOILER Work Phone: [facility] 06-02-2022 12:34-0400 Systolic blood pressure 148 mm[Hg] [facility] CALCIMINER.OVERCOILER Work Phone: [facility] 05-09-2022 08:10-0400 Body weight 73.48 kg Pamela Aranda MD Work Phone: [facility] 04-19-2022 15:190400 Body height 162.6 cm Darin Alonzo MD Work Phone: [facility] 04-19-2022 15:190400 Body temperature 97.81 [degF] Darin Alonzo MD Work Phone: [facility] 04-19-2022 15:19-0400 Body weight 74.39 kg Darin Alonzo MD Work Phone: [facility] 04-19-2022 15:19-0400 Diastolic blood pressure 68 mm[Hg] Darin Alonzo MD Work Phone: [facility] 04-19-2022 15:19-0400 Heart rate 80 /min Darin Alonzo MD Work Phone: [facility] 04-19-2022 15:19-0400 Respiratory rate 12 /min Darin Alonzo MD Work Phone: [facility] 04-19-2022 15:19-0400 SaO2% (BldA) [Mass fraction] 99 % Darin Alonzo MD Work Phone: [facility] 04-19-2022 15:19-0400 Systolic blood pressure 140 mm[Hg] Darin Alonzo MD Work Phone: [facility] 03-21-2022 16:11-0400 Body height 162.6 cm Darin Alonzo MD Work Phone: [facility] 03-21-2022 16:11-0400 Body temperature 98.29 [degF] Darin Alonzo MD Work Phone: [facility] 03-21-2022 16:11-0400 Body weight 73.94 kg Darin Alonzo MD Work Phone: [facility] 03-21-2022 16:11-0400 Diastolic blood pressure 72 mm[Hg] Darin Alonzo MD Work Phone: [facility] 03-21-2022 16:11-0400 Heart rate 76 /min Darin Alonzo MD Work Phone: [facility] 03-21-2022 16:11-0400 Respiratory rate 12 /min Darin Alonzo MD Work Phone: [facility] 03-21-2022 16:11-0400 SaO2% (BldA) [Mass fraction] 97 % Darin Alonzo MD Work Phone: [facility] 03-21-2022 16:11-0400 Systolic blood pressure 126 mm[Hg] Darin Alonzo MD Work Phone: [facility] 03-11-2022 08:41-0400 Body temperature 98.4 [degF] Dr. Darin Alonzo Work Phone: [facility] Work Phone: 03-11-2022 08:41-0400 Diastolic blood pressure 72 mm[Hg] Dr. Darin Alonzo Work Phone: [facility] Work Phone: 03-11-2022 08:41-0400 Heart rate 86 /min Dr. Darin Alonzo Work Phone: [facility] Work Phone: 03-11-2022 08:41-0400 Respiratory rate 18 /min Dr. Darin Alonzo Work Phone: [facility] Work Phone: 03-11-2022 08:41-0400 SaO2% (BldA) [Mass fraction] 95 % Dr. Darin Alonzo Work Phone: [facility] Work Phone: 03-11-2022 08:41-0400 Systolic blood pressure 182 mm[Hg] Dr. Darin Alonzo Work Phone: [facility] Work Phone: 03-11-2022 08:21-0400 Body mass index (BMI) [Ratio] 27.1 kg/m2 Dr. Darin Alonzo Work Phone: [facility] Work Phone: 03-10-2022 16:48-0400 Body height 165.[address] Darin Alonzo Work Phone: [facility] Work Phone: 03-10-2022 16:48-0400 Body weight 74.[address] Darin Alonzo Work Phone: [facility] Work Phone: 03-10-2022 16:26-0400 Body temperature 97.9 [degF] [facility] Work Phone: 03-10-2022 16:26-0400 Diastolic blood pressure 68 mm[Hg] [facility] Work Phone: 03-10-2022 16:26-0400 Heart rate 83 /min [facility] Work Phone: 03-10-2022 16:26-0400 Respiratory rate 18 /min [facility] Work Phone: 03-10-2022 16:26-0400 SaO2% (BldA) [Mass fraction] 97 % [facility] Work Phone: 03-10-2022 16:26-0400 Systolic blood pressure 167 mm[Hg] [facility] Work Phone: 03-10-2022 15:15-0400 Body height 165.1 cm [facility] Work Phone: 03-10-2022 15:15-0400 Body mass index (BMI) [Ratio] 27.9 kg/m2 [facility] Work Phone: 03-10-2022 15:15-0400 Body weight 76.1 kg [facility] Work Phone: 03-10-2022 14:57-0400 Body temperature 97 [degF] Nakul Patino MD Work Phone: [facility] 03-10-2022 14:57-0400 Body weight 76.11 kg Nakul Patino MD Work Phone: [facility] 03-10-2022 14:57-0400 Diastolic blood pressure 106 mm[Hg] Nakul Patino MD Work Phone: [facility] 03-10-2022 14:57-0400 Heart rate 77 /min Nakul Patino MD Work Phone: [facility] 03-10-2022 14:57-0400 Respiratory rate 18 /min Nakul Patino MD Work Phone: [facility] 03-10-2022 14:57-0400 SaO2% (BldA) [Mass fraction] 98 % Nakul Patino MD Work Phone: [facility] 03-10-2022 14:57-0400 Systolic blood pressure 182 mm[Hg] Nakul Patino MD Work Phone: [facility] Encounters Encounter Date Encounter Type Care Provider Facility Start: 04-09-2025 End: 04-10-2025 Telephone encounter Darin Alonzo MD Work Phone: [facility] [place] Comment on above: Patient Question Start: 03-26-2025 End: 03-28-2025 ambulatory Dorie Gill CALCIMINER.OVERCOILER Work Phone: [facility] Comment on above: [facility] Start: 03-07-2025 End: 03-07-2025 Office outpatient visit 25 minutes Griselda Lema CALCIMINER.OVERCOILER Work Phone: [facility] [place] Comment on above: Muscle cramps (Prima ry Dx); Insomnia, unspecified type; Gastroesophageal reflux disease without esophagitis; Acute cough; Hypomagnesemia; Hyperlipidemia, unspecified hyperlipidemia type; Essential hypertension; Acquired hypothyroidism; Controlled type 2 diabetes mellitus without complication, unspecified whether jail insulin use (HCC) Start: 03-07-2025 End: 03-07-2025 [facility] Facility:[facility] Start: 03-02-2025 End: 03-03-2025 Refill Griselda Older CALCIMINER.OVERCOILER Work Phone: [facility] [place] Comment on above: Med Change Request Start: 02-24-2025 End: 03-04-2025 Refill Dorie Gill CALCIMINER.OVERCOILER Work Phone: [facility] Comment on above: Refill Request Start: 02-23-2025 End: 02-28-2025 ambulatory Griselda Lema CALCIMINER.OVERCOILER Work Phone: [facility] [place] Comment on above: [facility] Start: 02-21-2025 End: 02-21-2025 [facility] Facility:[facility] Start: 02-08-2025 End: 02-12-2025 ambulatory Griselda Older CALCIMINER.OVERCOILER Work Phone: [facility] [place] Comment on above: [facility] Start: 02-07-2025 End: 02-07-2025 Office outpatient visit 25 minutes Griselda Lema CALCIMINER.OVERCOILER Work Phone: [facility] [place] Comment on above: Muscle cramps (Prima ry Dx); Hypomagnesemia; Gastroesophageal reflux disease without esophagitis; Acute cough; Insomnia, unspecified type Start: 02-07-2025 End: 02-12-2025 ambulatory Griselda Older CALCIMINER.OVERCOILER Work Phone: [facility] [place] Comment on above: [facility] Start: 02-05-2025 End: 02-10-2025 Follow-up encounter Griselda Lema CALCIMINER.OVERCOILER Work Phone: [facility] [place] Start: 02-04-2025 End: 02-07-2025 Telephone encounter Darin Alonzo MD Work Phone: [facility] [place] Comment on above: Patient Question (Le g cramps / asking if a higher dose should me called in?) Start: 02-01-2025 End: 02-05-2025 Refill Griselda Lema CALCIMINER.OVERCOILER Work Phone: [facility] [place] Comment on above: Med Change Request Start: 01-29-2025 End: [facility] Start: 01-13-2025 End: 01-15-2025 Follow-up encounter Griselda Lema CALCIMINER.OVERCOILER Work Phone: [facility] [place] Comment on above: Results Start: 01-10-2025 End: 01-10-2025 Office outpatient visit 25 minutes Griselda Lema CALCIMINER.OVERCOILER Work Phone: [facility] [place] Comment on above: Essential hypertensi on (Primary Dx); Controlled type 2 diabetes mellitus without complication, 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); Muscle cramps; Insomnia, unspecified type; Anxiety and depression; Grief; Acquired hypothyroidism; Gastroesophageal reflux disease without esophagitis; Hyperlipidemia, unspecified hyperlipidemia type; Abnormal color of lips Start: 01-10-2025 End: 01-10-2025 ambulatory [facility] Facility:[facility] Start: 01-08-2025 End: 03-10-2025 Follow-up encounter Griselda Lema APRN.CNP Work Phone: [facility] Start: 01-03-2025 End: 01-03-2025 ambulatory [facility] Facility:[facility] Start: 12-23-2024 End: 12-24-2024 ambulatory Dorie Gill CALCIMINER.OVERCOILER Work Phone: [facility] Comment on above: [facility] Start: 12-13-2024 End: 12-13-2024 ambulatory Dorie Gill APRN.OVERCOILER Work Phone: [facility] Comment on above: [facility] Start: 12-13-2024 End: 12-13-2024 Office outpatient visit 15 minutes Dorie Gill APRN.OVERCOILER Work Phone: [facility] Comment on above: Chronic cough (Prima ry Dx); Follicular bronchiolitis (HCC); Pulmonary air trapping; Post-nasal drip; Gastroesophageal reflux disease without esophagitis Start: 11-20-2024 End: 11-20-2024 Refill Darin Alonzo MD Work Phone: [facility] Comment on above: Refill Request Start: 11-18-2024 End: 11-19-2024 Telephone encounter Pamela Arnada MD Work Phone: [facility] Comment on above: Cough Start: 10-22-2024 End: 10-22-2024 ambulatory [facility] Facility:[facility] Start: 10-18-2024 End: 10-18-2024 ambulatory Dorie Gill APRN.OVERCOILER Work Phone: [facility] Medicine Comment on above: new inhaler Start: 10-18-2024 End: 10-18-2024 E-mail encounter from caregiver Dorie Gill APRN.CNP Work Phone: [facility] Start: 10-17-2024 End: 10-18-2024 Refill Pamela Aranda MD Work Phone: [facility] Comment on above: Refill Request Start: 10-17-2024 End: 10-18-2024 Telephone encounter Dorie Gill APRN.OVERCOILER Work Phone: [facility] Comment on above: Patient Update (Medi cation change) Start: 10-11-2024 End: 10-11-2024 ambulatory [facility] Facility:[facility] Start: 10-11-2024 End: 10-11-2024 Patient encounter procedure Griselda Lema APRN.OVERCOILER Work Phone: [facility] [place] Comment on above: Controlled type 2 di abetes mellitus without complication, unspecified whether jail insulin use (HCC) (Primary Dx); Essential hypertension; Grief; Acquired hypothyroidism Start: 09-19-2024 End: 09-19-2024 Telephone encounter Darin Alonzo MD Work Phone: [facility] [place] Comment on above: Results Start: 09-19-2024 End: 09-19-2024 [facility] Facility:[facility] Start: 09-19-2024 End: 09-19-2024 Subsequent hospital visit by physician Screen Mammo [facility] Comment on above: Encounter for screen ing mammogram for breast cancer [Z12.31] Start: 09-16-2024 End: 09-16-2024 [facility] Start: 08-16-2024 End: 08-22-2024 ambulatory Griselda Lema APRN.OVERCOILER Work Phone: [facility] [place] Comment on above: [facility] Start: 08-06-2024 End: 08-07-2024 Telephone encounter Darin Alonzo MD Work Phone: [facility] [place] Comment on above: Orders (Mammogram) Start: 08-05-2024 End: 08-05-2024 Telephone encounter Griselda Lema APRN.OVERCOILER Work Phone: [facility] [place] Comment on above: Results Start: 08-03-2024 End: 08-03-2024 [facility] Facility:[facility] Start: 07-13-2024 End: 07-13-2024 amb[facility] [place] Work Phone: [facility] [place] Start: 07-13-2024 End: 07-13-2024 Patient encounter procedure [facility] [place] Work Phone: [facility] [place] Start: 06-24-2024 End: 06-24-2024 Telephone encounter Darin Alonzo MD Work Phone: [facility] [place] Comment on above: Patient Update Start: 2024 End: 2024 [facility] Facility:[facility] Start: 2024 End: 2024 Patient encounter procedure Griselda Lema APRN.CNP Work Phone: [facility] [place] Comment on above: Controlled type 2 di abetes mellitus without complication, 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) (Primary Dx); Essential hypertension; Hyperlipidemia, unspecified hyperlipidemia type; Acquired hypothyroidism; Medication management Start: 06-14-2024 End: 06-14-2024 ambulatory DORIE CLICK Facility:[facility] Start: 06-14-2024 End: 06-14-2024 Office outpatient visit 25 minutes Dorie Gill APRN.CNP Work Phone: [facility] Medicine Comment on above: Chronic cough (Prima ry Dx); Follicular bronchiolitis (HCC); Pulmonary air trapping; PND (post-nasal drip); Cardiac murmur Start: 06-13-2024 End: 06-13-2024 [facility] Facility:[facility] Start: 05-16-2024 End: 05-16-2024 Refill Darin Alonzo MD Work Phone: [facility] [place] Comment on above: Refill Request Start: 05-16-2024 End: 05-17-2024 Refill Griselda Lema APRN.OVERCOILER Work Phone: [facility] [place] Comment on above: Med Change Request Start: 04-25-2024 End: 06-03-2024 Telephone encounter Darin Alonzo MD Work Phone: [facility] [place] Comment on above: Patient Update (Diab etic shoes) Start: 03-21-2024 End: 03-21-2024 Patient encounter procedure Griselda Older CALCIMINER.OVERCOILER Work Phone: [facility] [place] Comment on above: Controlled type 2 di abetes mellitus without complication, 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) (Primary Dx); Hyperlipidemia, unspecified hyperlipidemia type; Essential hypertension; Gastroesophageal reflux disease without esophagitis; Grief; Acquired hypothyroidism; Follicular bronchiolitis (HCC) Start: 02-22-2024 End: 02-22-2024 Patient encounter procedure Darleen Orr CALCIMINER.OVERCOILER Work Phone: [facility] Comment on above: Elbow wound, left, i nitial encounter (Primary Dx) Start: 02-22-2024 Telephone encounter Darleen Ting ggs CALCIMINER.OVERCOILER Work Phone: [facility] [place] Comment on above: Medication Problem Start: 02-02-2024 Refill Griselda Older CALCIMINER .OVERCOILER Work Phone: [facility] [place] Comment on above: Refill Request Start: 01-31-2024 Refill Griselda Older CALCIMINER .OVERCOILER Work Phone: [facility] [place] Comment on above: Refill Request Start: 01-08-2024 Telephone encounter Griselda Older CALCIMINER.OVERCOILER Work Phone: [facility] [place] Comment on above: Patient Update Start: 12-29-2023 ambulatory Griselda Older CALCIMINER .OVERCOILER Work Phone: [facility] [place] Comment on above: [facility] Start: 12-18-2023 ambulatory Griselda Older CALCIMINER .OVERCOILER Work Phone: [facility] [place] Comment on above: [facility] Start: 12-18-2023 Telephone encounter Griselda Older CALCIMINER.OVERCOILER Work Phone: [facility] [place] Comment on above: Results Start: 12-15-2023 End: 12-15-2023 Patient encounter procedure Griselda Older CALCIMINER.OVERCOILER Work Phone: [facility] [place] Comment on above: Controlled type 2 di abetes mellitus without complication, unspecified whether jail insulin use (HCC) (Primary Dx); Essential hypertension; Acquired hypothyroidism; Dizziness Start: 12-05-2023 End: 12-05-2023 Subsequent hospital visit by physician [facility] ([facility]) Work Phone: Cat Scan Comment on above: Follicular bronchiol itis (HCC) [J42] Start: 12-04-2023 Refill Darin Montague Work Phone: Internal Medicine [place] Comment on above: Refill Request Start: 11-28-2023 End: 11-28-2023 Patient encounter procedure Pamela Aranda MD Work Phone: Pulmonary Medicine Comment on above: Follicular bronchiol itis (HCC) (Primary Dx); Chronic cough; Postnasal drip Start: 10-30-2023 Refill Griselda Older CALCIMINER .OVERCOILER Work Phone: Internal Medicine [place] Comment on above: Refill Request Start: 10-02-2023 ambulatory Griselda Older CALCIMINER .OVERCOILER Work Phone: Internal Medicine [place] Comment on above: pawoods Start: 08-23-2023 ambulatory Griselda Older CALCIMINER .OVERCOILER Work Phone: Internal Medicine [place] Comment on above: pawoods Start: 08-14-2023 Refill Griselda Older CALCIMINER .OVERCOILER Work Phone: Internal Medicine [place] Comment on above: Refill Request Start: 08-01-2023 Telephone encounter Darin gamez MD Work Phone: Family Medicine [place] Comment on above: Mammogram order Start: 07-15-2023 End: 07-15-2023 ambulatory Immunization Clinic Nurse [place] Work Phone: [...] Griselda Lema APRN.CNP Work Phone: Internal Medicine [place] Comment on above: Controlled type 2 di abetes mellitus without complication, 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) (Primary Dx); Essential hypertension; Hyperlipidemia, unspecified hyperlipidemia type; Acquired hypothyroidism Start: 05-17-2023 End: 06-10-[address] Darin Alonzo Work Phone: [facility] Work Phone: Start: 05-17-2023 End: 06-10-[address] Darin Alonzo Work Phone: [facility] Work Phone: Start: 04-18-2023 Refill Darin Montague Work Phone: Internal Medicine [place] Comment on above: Refill Request Start: 04-11-2023 End: 05-11-[address] Darin Alonzo Work Phone: [facility] Work Phone: Start: 04-11-2023 End: 05-11-[address] Darin Alonzo Work Phone: [facility] Work Phone: Start: 04-10-2023 End: 04-10-2023 Subsequent hospital visit by physician [facility] Work Phone: Radiology Comment on above: Tenderness of right hip [M25.551] Start: 04-10-2023 End: 04-10-2023 Patient encounter procedure Griselda Lema APRN.CNP Work Phone: Internal Medicine [place] Comment on above: Essential hypertensi on (Primary Dx); Tenderness of right hip; Right thigh pain; Right ankle instability Start: 03-21-2023 End: 03-21-[address] Darin Alonzo Work Phone: [facility] Work Phone: Start: 03-07-2023 Non-patient / Non-visit Dr. Derrek Alonzo Work Phone: [facility] Start: 03-07-2023 End: 03-07-[address] Darin Alonzo Work Phone: [facility] Work Phone: Start: 03-07-2023 End: 03-07-[address] Darin Alonzo Work Phone: [facility] Work Phone: Start: 03-01-2023 End: 03-01-2023 Patient encounter procedure Darin Alonzo MD Work Phone: Internal Medicine [place] Comment on above: Essential hypertensi on (Primary Dx); Uncontrolled hypertension Start: 02-27-2023 Refill Griselda Older CALCIMINER .OVERCOILER Work Phone: Internal Medicine [place] Comment on above: Refill Request Start: 02-27-2023 Telephone encounter Darin gamez MD Work Phone: Internal Medicine [place] Comment on above: Blood Pressure Start: 02-25-2023 Refill Griselda Older CALCIMINER .OVERCOILER Work Phone: Internal Medicine [place] Comment on above: Refill Request Start: 02-23-2023 Refill Griselda Older CALCIMINER .OVERCOILER Work Phone: Internal Medicine [place] Comment on above: Refill Request Start: 02-16-2023 Refill Griselda Older CALCIMINER .OVERCOILER Work Phone: Internal Medicine [place] Comment on above: Refill Request Start: 12-13-2022 Refill Darin Montague Work Phone: Internal Medicine [place] Comment on above: Refill Request Start: 11-25-2022 End: 11-25-2022 ambulatory Pulm Lab [facility] Work Phone: [facility]ULM [facility] Comment on above: Spirometry Start: 11-25-2022 End: 11-25-2022 Patient encounter procedure [facility] [place] [facility] Comment on above: Follicular bronchiol itis (HCC) (Primary Dx); Post-nasal drip; Gastroesophageal reflux disease, unspecified whether esophagitis present Start: 11-09-2022 Refill Darin Montague Work Phone: Internal Medicine [place] Comment on above: Refill Request Start: 11-07-2022 Refill Griselda Lema APRN .OVERCOILER Work Phone: Internal Medicine [place] Comment on above: Refill Request Start: 11-07-2022 End: 11-07-2022 Subsequent hospital visit by physician X[facility] [place] Work Phone: Radiology Comment on above: Follicular bronchiol itis (HCC) [J42] Start: 11-01-2022 End: 11-01-2022 Patient encounter procedure Darin Alonzo MD Work Phone: Internal Medicine [place] Comment on above: Essential hypertensi on (Primary Dx); Hyperlipidemia, unspecified hyperlipidemia type; Acquired hypothyroidism; Controlled type 2 diabetes mellitus without complication, unspecified whether jail insulin use (HCC); Follicular bronchiolitis (HCC) Start: 09-19-2022 Telephone encounter Darin gamez MD Work Phone: Internal Medicine [place] Comment on above: Results Start: 08-23-2022 Documentation procedure Mammog shavonne Coordinator [facility] Start: 08-23-2022 Letter encounter Mammography Coordinator [facility] Department Start: 08-22-2022 End: 08-22-2022 Subsequent hospital visit by physician Screen Mammo [facility] Comment on above: Encounter for screen ing mammogram for malignant neoplasm of breast [Z12.31] Start: 08-19-2022 Refill Griselda Lema APRN .OVERCOILER Work Phone: Internal Medicine [place] Comment on above: Refill Request Start: 08-01-2022 End: 08-01-2022 Patient encounter procedure Darin Alonzo MD Work Phone: Internal Medicine [place] Comment on above: Controlled type 2 di abetes mellitus without complication, 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) (Primary Dx); Acquired hypothyroidism; Essential hypertension; Hyperlipidemia, unspecified hyperlipidemia type Start: 07-28-2022 Telephone encounter Darin gamez MD Work Phone: Internal Medicine [place] Comment on above: Orders Start: 07-19-2022 Refill Darin Montague Work Phone: Internal Medicine [place] Comment on above: Refill Request Start: 07-15-2022 [...] Refill Darin Montague Work Phone: Internal Medicine [place] Comment on above: Refill Request Start: 06-17-2022 End: 06-17-2022 Patient encounter procedure Christy Williamson PA-C Work Phone: Pulmonary Medicine Comment on above: Acute cough (Primary Dx); Follicular bronchiolitis (HCC); Gastroesophageal reflux disease without esophagitis Start: 06-15-2022 End: 06-15-2022 Subsequent hospital visit by physician Xr [facility] [place] Work Phone: Radiology Comment on above: Acute cough [R05.1] Start: 06-15-2022 End: 06-15-2022 Patient encounter procedure Griselda Lema APRN.CNP Work Phone: Internal Medicine [place] Comment on above: Acute cough (Primary Dx); Post-nasal drip Start: 06-02-2022 End: 06-02-2022 Patient encounter procedure Arsh Daavlos APRN.OVERCOILER Work Phone: [place] [facility] Comment on above: Suspected COVID-19 v irus infection (Primary Dx); Sinobronchitis Start: 05-09-2022 End: 05-09-2022 Patient encounter procedure Pamela Aranda MD Work Phone: Pulmonary Medicine Comment on above: Follicular bronchiol itis (HCC) (Primary Dx); Post-nasal drip; Gastroesophageal reflux disease without esophagitis Start: 04-22-2022 Refill Darin Montague Work Phone: Internal Medicine [place] Comment on above: Refill Request Start: 04-21-2022 Telephone encounter Griselda Lema APRN.OVERCOILER Work Phone: Internal Medicine [place] Comment on above: Medication Problem Start: 04-19-2022 End: 04-19-2022 Patient encounter procedure Darin Alonzo MD Work Phone: Internal Medicine [place] Comment on above: Chronic cough (Prima ry Dx); Controlled type 2 diabetes mellitus without complication, unspecified whether jail insulin use (HCC); Essential hypertension; Hyperlipidemia, unspecified hyperlipidemia type Start: 04-14-2022 ambulatory Darin Montague Work Phone: Internal Medicine [place] Comment on above: Cough Start: 04-09-2022 Refill Griselda ManriquezOVERCOILER Work Phone: Internal Medicine [place] Comment on above: Refill Request Start: 03-23-2022 Telephone encounter Darin gamez MD Work Phone: Internal Medicine [place] Comment on above: Results Start: 03-21-2022 End: 03-21-2022 Subsequent hospital visit by physician Xr [facility] [place] Work Phone: Radiology Comment on above: Acute cough [R05.1] Start: 03-21-2022 End: 03-21-2022 Patient encounter procedure Darin Alonzo MD Work Phone: Internal Medicine [place] Comment on above: Acute cough (Primary Dx); Controlled type 2 diabetes mellitus without complication, without long-term current use of insulin (HCC); Hospital discharge follow-up; Vertigo Start: 03-17-2022 Telephone encounter Darin gamez MD Work Phone: Internal Medicine [place] Comment on above: Patient Update Start: 03-15-2022 Refill Darin Montague Work Phone: Internal Medicine [place] Comment on above: Refill Request Start: 03-11-2022 Non-patient / Non-visit Dr. Derrek Alonzo Work Phone: [facility] Start: 03-11-2022 Non-patient / Non-visit Dr. Derrek Alonzo Work Phone: [facility] Start: 03-11-2022 Non-patient / Non-visit Dr. Derrek Alonzo Work Phone: [facility] Start: 03-10-2022 Non-patient / Non-visit Dr. Derrek Alonzo Work Phone: [facility] Start: 03-10-2022 End: 03-11-2022 Evaluation and management of inpatient Dr. Darin Alonzo Work Phone: [facility] Start: 03-10-2022 End: 03-10-2022 Emergency department patient visit [facility]Emergency [facility] Start: 03-10-2022 End: 03-10-2022 Patient encounter procedure Nakul Patino MD Work Phone: [place] [facility] Comment on above: Dizziness (Primary D x); Headache, unspecified headache type; Nausea Start: 12-10-2021 Refill Darin Montague Work Phone: Internal Medicine [place] Comment on above: Refill Request Start: 10-27-2017 End: 10-27-2017 Ambulatory [facility] Procedures Date Procedure Procedure Detail Performing Clinician Start: 10-11-2024 Hemoglobin A1c/Hemoglobin.total in Blood Griselda Lema CALCIMINERHEBERT Work Phone: Start: 09-19-2024 Screening mammograph y bi 2-view breast inc cad Darin Alonzo MD Work Phone: Start: 03-21-2024 Hemoglobin A1c/Hemoglobin.total in Blood Griselda Older CALCIMINER.OVERCOILER Work Phone: Start: 07-15-2023 INFLUENZA VACCINE, P RSV FREE, AGE 65+ YR, HIGH DOSE, QUADRIVALENT (FLUZONE HIGH-DOSE) Hamzah Leggett MD Work Phone: Start: 04-10-2023 Radex ankle complete minimum 3 views Griselda Older CALCIMINER.OVERCOILER Work Phone: Start: 11-25-2022 Brncdilat rspse spmt ry pre&post-brncdilat admn Pamela Aranda MD Work Phone: Start: 11-07-2022 Radiologic exam ches t 2 views Pamela Aranda MD Work Phone: Start: 08-22-2022 Screening mammograph y bi 2-view breast inc cad Griselda Older CALCIMINER.OVERCOILER Work Phone: Start: 07-02-2022 INFLUENZA SEASONAL QUADRIVALENT HIGH DOSE AGE 65+ Hamzah Leggett MD Work Phone: Start: 06-15-2022 Radiologic exam ches t 2 views Griselda Older CALCIMINER.OVERCOILER Work Phone: Start: 03-21-2022 Radiologic exam ches [...] Vaccine ( season) Covid-19 Vaccine ( season) [facility] Comment on above: Postponed from 07/04 (Declined at this time) Start: 07-16-2025 Glaucoma screening Dilated Retinal E xam [facility] Start: 07-05-2025 Hemoglobin A1c measurement HbA1C [facility] Start: 06-24-2025 End: 06-24-2025 Patient encounter procedure 06/24/2025 9:30 AM EDT Office Visit Pulmonary Medicine [address] [place] [address] Pamela Aranda MD [address] [place] [address] 6 month follow up Pulmonary Medicine Comment on above: 6 month follow up Start: 06-13-2025 Hepatitis B screening Urine Al bumin:Creatinine Ratio [facility] Start: 06-13-2025 Hepatitis B surface antibody level LDL Cholesterol [facility] Start: 06-07-2025 End: 09-06-2025 CBC panel - Blood by Automated count COMPLETE BLOOD COUNT Lab Routine Essential hypertension Controlled type 2 diabetes mellitus without complication, 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) Expected: 06/07/2025 (Approximate), Expires: 09/06/2025 [facility] Comment on above: Expected: 06/07/2025 (Approximate), Expires: 09/06/2025 Start: 06-07-2025 End: 09-06-2025 Comprehensive metabolic 2000 panel - Serum or Plasma COMPREHENSIVE METABOLIC PANEL Lab Routine Hyperlipidemia, unspecified hyperlipidemia type Essential hypertension Controlled type 2 diabetes mellitus without complication, unspecified whether jail insulin use (HCC) Expected: 06/07/2025, Expires: 09/06/2025 [facility] Comment on above: Expected: 06/07/2025 , Expires: 09/06/2025 Start: 06-07-2025 End: 09-06-2025 Hemoglobin A1c in Blood HEMOGLOBIN A1C Lab Routine Controlled type 2 diabetes mellitus without complication, 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) Expected: 06/07/2025 (Approximate), Expires: 09/06/2025 [facility] Comment on above: Expected: 06/07/2025 (Approximate), Expires: 09/06/2025 Start: 06-07-2025 End: 09-06-2025 Lipid 1996 panel - Serum or Plasma LIPID PANEL, FASTING Lab Routine Hyperlipidemia, unspecified hyperlipidemia type Expected: 06/07/2025, Expires: 09/06/2025 [facility] Comment on above: Expected: 06/07/2025 , Expires: 09/06/2025 Start: 06-07-2025 End: 09-06-2025 Magnesium [Mass/volume] in Serum or Plasma MAGNESIUM Lab Routine Hypomagnesemia Expected: 06/07/2025 (Approximate), Expires: 09/06/2025 [facility] Work Phone: Comment on above: Expected: 06/07/2025 (Approximate), Expires: 09/06/2025 Start: 06-07-2025 End: 09-06-2025 Thyrotropin [Units/volume] in Serum or Plasma THYROID STIMULATING HORMONE Lab Routine Acquired hypothyroidism Expected: 06/07/2025, Expires: 09/06/2025 [facility] Comment on above: Expected: 06/07/2025 , Expires: 09/06/2025 Start: 06-06-2025 End: 06-06-2025 Patient encounter procedure 06/06/2025 8:00 AM EDT Office Visit Internal Medicine [place] [address] [place] [address] Darin Alonzo MD [address] [place] [address] Medicare Wellness Internal Medicine [place] Comment on above: Medicare Wellness Start: 05-12-2025 Influenza vaccination Influenza Vacc ine (#1) [facility] Start: 04-10-2025 Hemoglobin A1c measurement HbA1C [facility] Start: 03-21-2025 Diabetic foot examination Diabetic F oot Exam [facility] Start: 03-10-2025 Influenza vaccination Influenza Vacc ine (#1) [facility] Comment on above: Postponed from 05/12 (Declined at this time) Start: 03-07-2025 End: 03-07-2025 Patient encounter procedure 03/07/2025 7:00 AM EDT Office Visit Internal Medicine [place] [address] [facility] [place] [address] Griselda Lema APRN.OVERCOILER [address] [facility] [place], [place] [id number] 4 week follow up Internal Medicine [place] Comment on above: 4 week follow up Start: 02-21-2025 End: 05-23-2025 Magnesium [Mass/volume] in Serum or Plasma MAGNESIUM Lab Routine Hypomagnesemia Expected: 02/21/2025, Expires: 05/23/2025 [facility] Work Phone: Comment on above: Expected: 02/21/2025 , Expires: 05/23/2025 Start: 02-07-2025 End: 02-07-2025 Patient encounter procedure 02/07/2025 7:00 AM EDT Office Visit Internal Medicine [place] [address] [facility], [place] [id number] Griselda Lema APRN.OVERCOILER [address] [facility], [place] [address] 4 week follow up Internal Medicine [place] Comment on above: 4 week follow up Start: 01-20-2025 End: 04-21-2025 Magnesium [Mass/volume] in Serum or Plasma MAGNESIUM Lab Routine Hypomagnesemia Expected: 01/20/2025 (Approximate), Expires: 04/21/2025 [facility] Work Phone: Comment on above: Expected: 01/20/2025 (Approximate), Expires: 04/21/2025 Start: 01-10-2025 End: 04-11-2025 Magnesium [Mass/volume] in Serum or Plasma [facility] Work Phone: Comment on above: Expected: 01/10/2025 , Expires: 04/11/2025 Start: 01-10-2025 End: 01-10-2025 Patient encounter procedure 01/10/2025 7:20 AM EDT Office Visit Internal Medicine [place] [address] [place] [address] Griselda Lema APRN.OVERCOILER [address] [facility], [place] [address] 3 month follow up Internal Medicine [place] Comment on above: 3 month follow up Start: 01-08-2025 End: 04-09-2025 Basic metabolic 2000 panel - Serum or Plasma BASIC METABOLIC PANEL Lab Routine Controlled type 2 diabetes mellitus without complication, unspecified whether jail insulin use (HCC) Essential hypertension Expected: 01/08/2025 (Approximate), Expires: 04/09/2025 [facility] Work Phone: Comment on above: Expected: 01/08/2025 (Approximate), Expires: 04/09/2025 Start: 01-08-2025 End: 04-09-2025 CBC panel - Blood by Automated count COMPLETE BLOOD COUNT Lab Routine Controlled type 2 diabetes mellitus without complication, 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) Essential hypertension Expected: 01/08/2025 (Approximate), Expires: 04/09/2025 [facility] Comment on above: Expected: 01/08/2025 (Approximate), Expires: 04/09/2025 Start: 01-08-2025 End: 04-09-2025 Hemoglobin A1c in Blood HEMOGLOBIN A1C Lab Routine Controlled type 2 diabetes mellitus without complication, 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) Expected: 01/08/2025 (Approximate), Expires: 04/09/2025 [facility] Comment on above: Expected: 01/08/2025 (Approximate), Expires: 04/09/2025 Start: 01-08-2025 End: 04-09-2025 Thyrotropin [Units/volume] in Serum or Plasma THYROID STIMULATING HORMONE Lab Routine Acquired hypothyroidism Expected: 01/08/2025 (Approximate), Expires: 04/09/2025 [facility] Comment on above: Expected: 01/08/2025 (Approximate), Expires: 04/09/2025 Start: 12-13-2024 End: 12-13-2024 Patient encounter procedure 12/13/2024 8:00 AM EDT Office Visit Pulmonary Medicine [address] [place] [address] Dorie Gill APRN.OVERCOILER [address] [place] [address] 6 month f/u Pulmonary Medicine Comment on above: 6 month f/u Start: 12-12-2024 Hemoglobin A1c measurement HbA1C [facility] Start: 10-11-2024 End: 10-11-2024 Patient encounter procedure 10/11/2024 8:00 AM EST Office Visit Internal Medicine [place] [address] [facility] [place] [address] Griselda Lema APRN.OVERCOILER [address] [place] [address] 3 month follow up Internal Medicine [place] Comment on above: 3 month follow up Start: 09-21-2024 Hemoglobin A1c measurement HbA1C [facility] Start: 09-20-2024 End: 09-20-2024 Patient encounter procedure 09/20/2024 7:20 AM EST Office Visit [facility] [place] [address] [facility] [place] [address] Griselda Lema APRN.OVERCOILER [address] [facility] [place] [address] 3 month follow up Internal Medicine [place] Comment on above: 3 month follow up Start: 09-19-2024 End: 09-19-2024 Patient encounter procedure 09/19/2024 10:50 AM EST Appointment Mammogram [address] [place] [address] Encounter for screening mammogram for breast cancer [Z12.31] Mammogram Comment on above: Encounter for screen ing mammogram for breast cancer [Z12.31] Start: 09-11-2024 Advance Directive Discussion Advance Directive Discussion [facility] Start: 09-04-2024 End: 12-04-2024 Thyrotropin [Units/volume] in Serum or Plasma THYROID STIMULATING HORMONE Lab Routine Acquired hypothyroidism Medication management Expected: 09/04/2024 (Approximate), Expires: 12/04/2024 [facility] Work Phone: Comment on above: Expected: 09/04/2024 (Approximate), Expires: 12/04/2024 Start: 09-04-2024 End: 12-04-2024 Thyroxine (T4) free [Mass/volume] in Serum or Plasma T4 FREE/FREE THYROXINE Lab Routine Acquired hypothyroidism Medication management Expected: 09/04/2024 (Approximate), Expires: 12/04/2024 [facility] Comment on above: Expected: 09/04/2024 (Approximate), Expires: 12/04/2024 Start: 08-17-2024 RSV Vaccine (1 - 1-d ose 60+ series) RSV Vaccine (1 - 1-dose 60+ series) [facility] Comment on above: Postponed from 06/21 (Declined at this time) Start: 08-17-2024 RSV Vaccine (1 - 1-d ose 75+ series) RSV Vaccine (1 - 1-dose 75+ series) [facility] Comment on above: Postponed from 06/21 (Declined at this time) Start: 08-05-2024 Hepatitis B surface antibody level LDL Cholesterol [facility] Start: 07-22-2024 End: 10-21-2024 Thyrotropin [Units/volume] in Serum or Plasma THYROID STIMULATING HORMONE Lab Routine Acquired hypothyroidism Medication management Expected: 07/22/2024 (Approximate), Expires: 10/21/2024 [facility] Work Phone: Comment on above: Expected: 07/22/2024 (Approximate), Expires: 10/21/2024 Start: 07-14-2024 Glaucoma screening Dilated Retinal E xam [facility] Start: 07-14-2024 Hepatitis C antibody , confirmatory test Dilated Retinal Exam [facility] Start: 07-13-2024 End: 07-13-2024 Patient encounter procedure 07/13/2024 8:00 AM EDT Immunization Family Medicine [place] [address] [facility] [place] [id number] [place], Immunization Clinic Nurse [address] [facility] [place] [id number] 65+ Flu Vaccine Family Medicine [place] Comment on above: 65+ Flu Vaccine Start: 07-04-2024 Covid-19 Vaccine ( season) Covid-19 Vaccine ( season) [facility] Start: 2024 End: 2024 Patient encounter procedure 2024 7:20 AM EDT Office Visit Internal Medicine [place] [address] [facility] [place] [id number] Griselda Lema APRN.OVERCOILER [address] [facility] [place] [id number] 3 month follow up Internal Medicine [place] Comment on above: 3 month follow up Start: 06-17-2024 End: 09-16-2024 CBC panel - Blood by Automated count COMPLETE BLOOD COUNT Lab Routine Controlled type 2 diabetes mellitus without complication, 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) Essential hypertension Expected: 06/17/2024 (Approximate), Expires: 09/16/2024 [facility] Comment on above: Expected: 06/17/2024 (Approximate), Expires: 09/16/2024 Start: 06-17-2024 End: 09-16-2024 Comprehensive metabolic 2000 panel - Serum or Plasma COMPREHENSIVE METABOLIC PANEL Lab Routine Controlled type 2 diabetes mellitus without complication, unspecified whether jail insulin use (HCC) Essential hypertension Hyperlipidemia, unspecified hyperlipidemia type Expected: 06/17/2024 (Approximate), Expires: 09/16/2024 [facility] Comment on above: Expected: 06/17/2024 (Approximate), Expires: 09/16/2024 Start: 06-17-2024 End: 09-16-2024 Hemoglobin A1c in Blood HEMOGLOBIN A1C Lab Routine Controlled type 2 diabetes mellitus without complication, 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) Expected: 06/17/2024 (Approximate), Expires: 09/16/2024 [facility] Comment on above: Expected: 06/17/2024 (Approximate), Expires: 09/16/2024 Start: 06-17-2024 End: 09-16-2024 Lipid 1996 panel - Serum or Plasma LIPID PANEL BASIC Lab Routine Hyperlipidemia, unspecified hyperlipidemia type Expected: 06/17/2024 (Approximate), Expires: 09/16/2024 [facility] Comment on above: Expected: 06/17/2024 (Approximate), Expires: 09/16/2024 Start: 06-17-2024 End: 09-16-2024 Microalbumin/Creatinine [Mass Ratio] in Urine ALBUMIN/CREATININE RATIO, URINE Lab Routine Controlled type 2 diabetes mellitus without complication, unspecified whether jail insulin use (HCC) Expected: 06/17/2024 (Approximate), Expires: 09/16/2024 [facility] Work Phone: Comment on above: Expected: 06/17/2024 (Approximate), Expires: 09/16/2024 Start: 06-17-2024 End: 09-16-2024 Thyrotropin [Units/volume] in Serum or Plasma THYROID STIMULATING HORMONE Lab Routine Acquired hypothyroidism Expected: 06/17/2024 (Approximate), Expires: 09/16/2024 [facility] Comment on above: Expected: 06/17/2024 (Approximate), Expires: 09/16/2024 Start: 06-14-2024 End: 06-14-2024 Patient encounter procedure Pulmonary Medicine Comment on above: 6 month follow up Start: 05-19-2024 ANNUAL PCP TEAM DEVICE REPAIR TECHNICIAN ROMY DISEASE VISIT ANNUAL PCP TEAM CHRONIC DISEASE VISIT [facility] Start: 05-19-2024 BP CONTROLLED (<130/80) BP CONTROLLE D (<130/80) [facility] Start: 05-19-2024 Covid-19 Vaccine ( season) Covid-19 Vaccine () [facility] Comment on above: Postponed from 05/12 (Declined at this time) Start: 05-19-2024 COVID-19 VACCINE (6 - Moderna series) COVID-19 VACCINE (6 - Moderna series) [facility] Comment on above: Postponed from 11/04 (Declined at this time) Start: 05-19-2024 Urine microalbumin profile [facility] Comment on above: Postponed from 03/23 (Declined at this time) Start: 05-12-2024 Influenza vaccination Influenza Vacc ine (#1) [facility] Start: 04-10-2024 ANNUAL PCP TEAM DEVICE REPAIR TECHNICIAN ROMY DISEASE VISIT ANNUAL PCP TEAM CHRONIC DISEASE VISIT [facility] Start: 03-21-2024 End: 03-21-2024 Patient encounter procedure 03/21/2024 7:20 AM EDT Office Visit [facility] [place] [address] [place], [place] [id number] Griselda Lema APRN.OVERCOILER [address] [facility] [facility] [place] [id number] 3month FU DM [facility] [place] Comment on above: 3month FU DM Start: 03-15-2024 End: 03-15-2024 Patient encounter procedure 03/15/2024 7:20 AM EDT Office Visit [facility] [place] [address] [place] [address] Griselda Lema APRN.OVERCOILER [address] [place] [address] 3 month DM follow up [facility] [place] Comment on above: 3 month DM follow up Start: 03-11-2024 Hemoglobin A1c measurement HbA1C [facility] Start: 03-10-2024 Influenza vaccination C [facility] Comment on above: Postponed from 05/12 (Declined at this time) Start: 03-01-2024 ANNUAL PCP TEAM DEVICE REPAIR TECHNICIAN ROMY DISEASE VISIT ANNUAL PCP TEAM CHRONIC DISEASE VISIT [facility] Start: 02-23-2024 Urine microalbumin profile DTaP,Tdap,Td Vaccine (1 - Tdap) [facility] Start: 02-22-2024 End: 05-23-2024 Bacteria identified in Wound by Culture [facility] Work Phone: Comment on above: Expected: 02/22/2024 , Expires: 05/23/2024 Start: 02-03-2024 Hemoglobin A1c measurement HbA1C [facility] Start: 02-03-2024 Hemoglobin A1c/Hemoglobin.total in Blood HbA1C [facility] Start: 01-31-2024 ANNUAL PCP TEAM DEVICE REPAIR TECHNICIAN ROMY DISEASE VISIT ANNUAL PCP TEAM CHRONIC DISEASE VISIT [facility] Start: 01-24-2024 Hepatitis B surface antibody level LDL CHOLESTEROL [facility] Start: 01-17-2024 End: 04-17-2024 Thyrotropin [Units/volume] in Serum or Plasma TSH BLD Lab Routine Medication management Acquired hypothyroidism Expected: 01/17/2024 (Approximate), Expires: 04/17/2024 [facility] Work Phone: Comment on above: Expected: 01/17/2024 (Approximate), Expires: 04/17/2024 Start: 01-17-2024 End: 04-17-2024 Thyroxine (T4) free [Mass/volume] in Serum or Plasma T4 FREE/FREE THYROX Lab Routine Medication management Acquired hypothyroidism Expected: 01/17/2024 (Approximate), Expires: 04/17/2024 [facility] Work Phone: Comment on above: Expected: 01/17/2024 (Approximate), Expires: 04/17/2024 Start: 12-15-2023 End: 03-15-2024 CBC W Auto Differential panel - Blood [facility] Work Phone: Comment on above: Expected: 12/15/2023 , Expires: 03/15/2024 Start: 12-15-2023 End: 03-15-2024 Thyrotropin [Units/volume] in Serum or Plasma [facility] Work Phone: Comment on above: Expected: 12/15/2023 , Expires: 03/15/2024 Start: 11-09-2023 Hemoglobin A1c/Hemoglobin.total in Blood HBA1C [facility] Start: 11-02-2023 Hepatitis B screening URINE AL BUMIN:CREATININE RATIO [facility] Start: 11-01-2023 3 comp foot exam completed DIABETIC FOOT EXAM [facility] Start: 11-01-2023 ANNUAL PCP TEAM DEVICE REPAIR TECHNICIAN ROMY DISEASE VISIT ANNUAL PCP TEAM CHRONIC DISEASE VISIT [facility] Start: 11-01-2023 Diabetic foot examination Diabetic F oot Exam [facility] Start: 10-24-2023 Hepatitis B surface antibody level LDL CHOLESTEROL [facility] Start: 09-27-2023 Hepatitis C antibody , confirmatory test DILATED RETINAL EXAM [facility] Start: 09-11-2023 Behavioral Health Screening Behavioral Health Screening [facility] Start: 08-14-2023 End: 10-14-2023 CBC panel - Blood by Automated count CBC Lab Routine Essential hypertension Controlled type 2 diabetes mellitus without complication, 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) Expected: 08/14/2023 (Approximate), Expires: 10/14/2023 [facility] Work Phone: Comment on above: Expected: 08/14/2023 (Approximate), Expires: 10/14/2023 Start: 08-14-2023 End: 10-14-2023 Comprehensive metabolic 2000 panel - Serum or Plasma COMP METABOLIC PANEL Lab Routine Essential hypertension Hyperlipidemia, unspecified hyperlipidemia type Controlled type 2 diabetes mellitus without complication, 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) Expected: 08/14/2023 (Approximate), Expires: 10/14/2023 [facility] Work Phone: Comment on above: Expected: 08/14/2023 (Approximate), Expires: 10/14/2023 Start: 08-14-2023 End: 10-14-2023 Hemoglobin A1c in Blood HGB A1C Lab Routine Controlled type 2 diabetes mellitus without complication, 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) Expected: 08/14/2023 (Approximate), Expires: 10/14/2023 [facility] Work Phone: Comment on above: Expected: 08/14/2023 (Approximate), Expires: 10/14/2023 Start: 08-14-2023 End: 10-14-2023 Lipid 1996 panel - Serum or Plasma LIPID PANEL BASIC Lab Routine Hyperlipidemia, unspecified hyperlipidemia type Expected: 08/14/2023 (Approximate), Expires: 10/14/2023 [facility] Work Phone: Comment on above: Expected: 08/14/2023 (Approximate), Expires: 10/14/2023 Start: 08-14-2023 End: 10-14-2023 Thyrotropin [Units/volume] in Serum or Plasma TSH BLD Lab Routine Acquired hypothyroidism Expected: 08/14/2023 (Approximate), Expires: 10/14/2023 [facility] Work Phone: Comment on above: Expected: 08/14/2023 (Approximate), Expires: 10/14/2023 Start: 08-01-2023 ANNUAL PCP TEAM DEVICE REPAIR TECHNICIAN ROMY DISEASE VISIT ANNUAL PCP TEAM CHRONIC DISEASE VISIT [facility] Start: 07-26-2023 Hemoglobin A1c/Hemoglobin.total in Blood HBA1C [facility] Start: 07-25-2023 Hepatitis B surface antibody level LDL CHOLESTEROL [facility] Start: 06-15-2023 ANNUAL PCP TEAM DEVICE REPAIR TECHNICIAN ROMY DISEASE VISIT ANNUAL PCP TEAM CHRONIC DISEASE VISIT [facility] Start: 05-12-2023 Influenza vaccination INFLUENZA (#1) [facility] Start: 04-23-2023 Hemoglobin A1c/Hemoglobin.total in Blood HBA1C [facility] Start: 04-19-2023 ANNUAL PCP TEAM DEVICE REPAIR TECHNICIAN ROMY DISEASE VISIT ANNUAL PCP TEAM CHRONIC DISEASE VISIT [facility] Start: 04-15-2023 Hepatitis B surface antibody level LDL CHOLESTEROL [facility] Start: 03-21-2023 ANNUAL PCP TEAM DEVICE REPAIR TECHNICIAN ROMY DISEASE VISIT ANNUAL PCP TEAM CHRONIC DISEASE VISIT [facility] Start: 03-21-2023 BP CONTROLLED (<130/80) BP CONTROLLE D (<130/80) [facility] Start: 01-22-2023 Hemoglobin A1c/Hemoglobin.total in Blood HBA1C [facility] Start: 12-20-2022 Hepatitis B surface antibody level LDL CHOLESTEROL [facility] Start: 11-04-2022 COVID-19 VACCINE (6 - Moderna series) COVID-19 VACCINE (6 - Moderna series) [facility] Start: 11-01-2022 End: 01-01-2023 ALBUMIN/CREAT RATIO RND UR ALBUMIN/CREAT RATIO RND UR Lab Routine Controlled type 2 diabetes mellitus without complication, unspecified whether jail insulin use (HCC) Expected: 11/01/2022, Expires: 01/01/2023 [facility] Work Phone: Comment on above: Expected: 11/01/2022 , Expires: 01/01/2023 Start: 10-26-2022 ADVANCE DIRECTIVE DISCUSSION ADVANCE DIRECTIVE DISCUSSION [facility] Comment on above: Postponed from 09/11 (Currently Scheduled) Start: 10-22-2022 3 comp foot exam completed DIABETIC FOOT EXAM [facility] Start: 10-22-2022 Adult depression screening assessment DEPRESSION SCREENING [facility] Start: 10-22-2022 ANNUAL PCP TEAM DEVICE REPAIR TECHNICIAN ROMY DISEASE VISIT ANNUAL PCP TEAM CHRONIC DISEASE VISIT [facility] Start: 10-22-2022 BP CONTROLLED (<130/80) BP CONTROLLE D (<130/80) [facility] Start: 10-18-2022 Hepatitis B screening URINE AL BUMIN:CREATININE RATIO [facility] Start: 10-16-2022 Hemoglobin A1c/Hemoglobin.total in Blood HBA1C [facility] Start: 09-11-2022 ADVANCE DIRECTIVE DISCUSSION ADVANCE DIRECTIVE DISCUSSION [facility] Start: 09-11-2022 DEPRESSION ASSESSMENT DEPRESSION ASS ESSMENT [facility] Start: 08-31-2022 End: 10-31-2022 Thyrotropin [Units/volume] in Serum or Plasma TSH BLD Lab Routine Acquired hypothyroidism Expected: 08/31/2022, Expires: 10/31/2022 [facility] Work Phone: Comment on above: Expected: 08/31/2022 , Expires: 10/31/2022 Start: 07-15-2022 End: 09-14-2022 ALGN MONSTER ZHONG GRP [facility] Work Phone: Comment on above: Expected: 07/15/2022 , Expires: 09/14/2022 Start: 07-15-2022 End: 09-14-2022 IgE [Units/volume] in Serum or Plasma [facility] Work Phone: Comment on above: Expected: 07/15/2022 , Expires: 09/14/2022 Start: 05-12-2022 Influenza vaccination INFLUENZA (#1) [facility] Start: 04-17-2022 Hemoglobin A1c/Hemoglobin.total in Blood HBA1C [facility] Start: 04-08-2022 Urine microalbumin profile DTAP,TDAP,TD (1 - Tdap) [facility] Comment on above: Postponed from 03/23 (Declined at this time) Start: 04-01-2022 Hepatitis B surface antibody level LDL CHOLESTEROL [facility] Start: 03-11-2022 Patient discharge [facility] Work Phone: Start: 03-10-2022 Application of intermittent pneumatic compression device [facility] Work Phone: Start: 03-10-2022 Following clinical pathway protocol [facility] Work Phone: Start: 03-10-2022 Assessment of risk o f venous thromboembolism [facility] Work Phone: Start: 03-10-2022 Cardiac monitoring [facility] Work Phone: Start: 03-10-2022 Care regimes management [facility] Work Phone: Start: 03-10-2022 Catheterization of vein [facility] Work Phone: Start: 03-10-2022 Continuous pulse oximetry [facility] Work Phone: Start: 03-10-2022 Elevation of head of bed [facility] Work Phone: Start: 03-10-2022 Exercises [facility] Work Phone: Start: 03-10-[address]ed interventions [facility] Work Phone: Start: 03-10-2022 Incentive spirometry [facility] Work Phone: Start: 03-10-2022 Insertion of cathete r into peripheral vein [facility] Work Phone: Start: 03-10-2022 Measuring intake and output [facility] Work Phone: Start: 03-10-2022 Notification of physician [facility] Work Phone: Start: 03-10-2022 Oxygen therapy [facility] Work Phone: Start: 03-10-2022 Providing care accor ding to standard [facility] Work Phone: Start: 03-10-2022 Referral to occupati onal therapist [facility] Work Phone: Start: 03-10-2022 Referral to service [facility] Work Phone: Start: 03-10-2022 Tobacco use cessatio n education [facility] Work Phone: Start: 03-10-2022 [facility] Work Phone: Start: 03-10-2022 MRI of brain without contrast Brain without Contrast [facility] Work Phone: Start: 03-10-2022 Admission procedure [facility] Work Phone: Start: 03-10-2022 Oxygen therapy [facility] Work Phone: Start: 03-10-2022 Plain chest X-ray Chest 1 View [facility] Work Phone: Start: 03-10-2022 [facility] Work Phone: Start: 03-10-2022 Thyroid stimulating hormone measurement [facility] Work Phone: Start: 03-08-2022 Hepatitis C antibody , confirmatory test DILATED RETINAL EXAM [facility] Start: 02-17-2022 COVID-19 VACCINE (5 - Booster for Moderna series) COVID-19 VACCINE (5 - Booster for Moderna series) [facility] Start: 09-11-2021 DEPRESSION ASSESSMENT DEPRESSION ASS ESSMENT [facility] Start: 03-23-2012 Urine microalbumin profile DTAP,TDAP,TD (1 - Tdap) [facility] Start: 06-11-2007 Medicare Annual Well ness Visit Medicare Annual Wellness Visit [facility] Start: 2002 Hepatitis B Vaccine (1 of 3 - Risk 3-dose series) Hepatitis B Vaccine (1 of 3 - Risk 3-dose series) [facility] Start: 2002 RSV Vaccine (1 - 1-d ose 60+ series) RSV Vaccine (1 - 1-dose 60+ series) [facility] Start: 1960 Anxiety Screening Anxiety Screening [facility] Start: 1960 Depression Screening Depression Scre ening [facility] End: 03-21-2023 CBC panel - Blood by Automated count CBC Lab Routine Controlled type 2 diabetes mellitus without complication, without long-term current use of insulin (HCC) Every 6 months for 12 Occurrences starting 03/21/2022 until 03/21/2023 [facility] Work Phone: Comment on above: Every 6 months for 1 2 Occurrences starting 03/21/2022 until 03/21/2023 End: 03-21-2023 Comprehensive metabolic 2000 panel - Serum or Plasma COMP METABOLIC PANEL Lab Routine Controlled type 2 diabetes mellitus without complication, without long-term current use of insulin (HCC) Every 6 months for 12 Occurrences starting 03/21/2022 until 03/21/2023 [facility] Work Phone: Comment on above: Every 6 months for 1 2 Occurrences starting 03/21/2022 until 03/21/2023 End: 12-27-2024 CT Chest WO contrast CT CHEST WO IVCON Radiology Routine Follicular bronchiolitis (HCC) Chronic cough 1 Occurrences starting 11/28/2023 until 12/27/2024 [facility] Work Phone: Comment on above: 1 Occurrences starti ng 11/28/2023 until 12/27/2024 CT Chest WO contrast CT CHEST WO IVCON Radiology Routine Follicular bronchiolitis (HCC) Chronic cough 12/05/2023 8:38 AM EDT [facility] Work Phone: End: 03-21-2023 Hemoglobin A1c in Blood HGB A1C Lab Routine Controlled type 2 diabetes mellitus without complication, without long-term current use of insulin (HCC) Every 3 months for 24 Occurrences starting 03/21/2022 until 03/21/2023 [facility] Work Phone: Comment on above: Every 3 months for 2 4 Occurrences starting 03/21/2022 until 03/21/2023 Hemoglobin A1c/Hemoglobin.total in Blood [facility] Work Phone: Influenza virus A an d B RNA and SARS-CoV-2 (COVID-19) N gene panel - Respiratory specimen by DONAVAN with probe detection COVID WITH FLUA+B, ROUTINE Microbiology Routine Acute cough Ordered: 03/21/2022 [facility] Work Phone: Comment on above: Ordered: 03/21/2022 Influenza virus A an d B RNA and SARS-CoV-2 (COVID-19) N gene panel - Respiratory specimen by DONAVAN with probe detection COVID WITH FLUA+B, ROUTINE Microbiology Routine Suspected COVID-19 virus infection Ordered: 06/02/2022 [facility] Work Phone: Comment on above: Ordered: 06/02/2022 End: 03-21-2023 Lipid 1996 panel - Serum or Plasma LIPID PANEL BASIC Lab Routine Controlled type 2 diabetes mellitus without complication, without long-term current use of insulin (HCC) Every 6 months for 12 Occurrences starting 03/21/2022 until 03/21/2023 [facility] Work Phone: Comment on above: Every 6 months for 1 2 Occurrences starting 03/21/2022 until 03/21/2023 End: 08-30-2024 MADISON SCREENING MADISON SCREENING Radiology Routine Encounter for screening mammogram for malignant neoplasm of breast 1 Occurrences starting 08/01/2023 until 08/30/2024 [facility] Work Phone: Comment on above: 1 Occurrences starti ng 08/01/2023 until 08/30/2024 End: 09-05-2025 MG Breast Screening MADISON SCREENING Radiology Routine Encounter for screening mammogram for breast cancer 1 Occurrences starting 08/06/2024 until 09/05/2025 [facility] Work Phone: Comment on above: 1 Occurrences starti ng 08/06/2024 until 09/05/2025 Patient referral [facility] Work Phone: Radiologic exam ches t 2 views XR CHEST 2V FRONTAL/LAT Radiology Routine Acute cough 03/21/2022 6:55 PM EDT [facility] Work Phone: End: 06-08-2023 Radiologic exam chest 2 views XR CHEST 2V FRONTAL/LAT Radiology Routine Follicular bronchiolitis (HCC) 1 Occurrences starting 05/09/2022 until 06/08/2023 [facility] Work Phone: Comment on above: 1 Occurrences starti ng 05/09/2022 until 06/08/2023 End: 06-08-2023 SPIROMETRY WITH DILATOR IF OBSTRUCTED SPIROMETRY WITH DILATOR IF OBSTRUCTED PFT Routine Follicular bronchiolitis (HCC) 1 Occurrences starting 05/09/2022 until 06/08/2023 [facility] Work Phone: Comment on above: 1 Occurrences starti ng 05/09/2022 until 06/08/2023 SPIROMETRY WITH DILA TOR IF OBSTRUCTED SPIROMETRY WITH DILATOR IF OBSTRUCTED PFT Routine Follicular bronchiolitis (HCC) 11/25/2022 9:43 AM EDT [facility] Work Phone: Thyroid stimulating hormone measurement [facility] Work Phone: End: 03-21-2023 Thyrotropin [Units/volume] in Serum or Plasma TSH BLD Lab Routine Controlled type 2 diabetes mellitus without complication, without long-term current use of insulin (HCC) Every 3 months for 24 Occurrences starting 03/21/2022 until 03/21/2023 [facility] Work Phone: Comment on above: Every 3 months for 2 4 Occurrences starting 03/21/2022 until 03/21/2023 [facility] Immunizations Immunization Date Immunization Notes Care Provider Fa cili 07-13-2024 influenza, high dose seasonal, preservative-free Immunization [place] Work Phone: [facility] 07-13-2024 influenza virus vaccine, unspecified formulation Dorie Gill CALCIMINER.OVERCOILER Work Phone: [facility] 06-24-2024 respiratory syncytia l virus (RSV) vaccine, adjuvanted (AREXVY) Immunization [place] Work Phone: [facility] 06-23-2024 respiratory syncytia l virus (RSV) vaccine, adjuvanted (AREXVY) Darin Alonzo MD Work Phone: [facility] 05-09-2024 COVID-19 vaccine (NOVAVAX) Dorie Gill CALCIMINER.OVERCOILER Work Phone: [facility] 02-22-2024 TD(adult) unspecifie d formulation Darleen Orr CALCIMINER.OVERCOILER Work Phone: [facility] 02-22-2024 tetanus and diphther ia toxoids, adsorbed, preservative free, for adult use (5 Lf of tetanus toxoid and 2 Lf of diphtheria toxoid) Darleen Orr CALCIMINER.OVERCOILER Work Phone: [facility] 07-15-2023 influenza (HD-IIV4) vaccine, age 65+ yr, high dose, quadrivalent, PF (FLUZONE HIGH-DOSE) Immunization [place] Work Phone: [facility] 07-15-2023 influenza virus vaccine, unspecified formulation Screen Wstr [facility] 07-02-2022 influenza, high-dose , quadrivalent vaccine (FLUZONE HIGH DOSE QUADRIVALENT) Immunization [place] Work Phone: [facility] 07-02-2022 influenza virus vaccine, unspecified formulation Pamela Aranda MD Work Phone: [facility] 07-03-2021 influenza, high-dose , quadrivalent vaccine (FLUZONE HIGH DOSE QUADRIVALENT) Darin Alonzo MD Work Phone: [facility] Work Phone: 10-29-2020 COVID-19 vaccine, fu ll dose (MODERNA) Darin Alonzo MD Work Phone: [facility] 07-06-2020 zoster vaccine recombinant Darin Alonzo MD Work Phone: [facility] Work Phone: 06-09-2020 influenza, high-dose , quadrivalent vaccine (FLUZONE HIGH DOSE QUADRIVALENT) Darin Alonzo MD Work Phone: [facility] 05-12-2020 zoster vaccine recombinant Darin Alonzo MD Work Phone: [facility] Work Phone: 04-07-2020 zoster vaccine recombinant Darin Alonzo MD Work Phone: [facility] Work Phone: 07-06-2019 influenza, high dose seasonal, preservative-free Darin Alonzo MD Work Phone: [facility] 07-03-2018 influenza, high dose seasonal, preservative-free aDrin Alonzo MD Work Phone: [facility] Work Phone: 07-15-2017 influenza, high dose seasonal, preservative-free Darin Alonzo MD Work Phone: [facility] Work Phone: 07-02-2016 influenza, high dose seasonal, preservative-free Darin Alonzo MD Work Phone: [facility] Work Phone: 08-10-2015 pneumococcal polysaccharide vaccine, 23 valent Darin Alonzo MD Work Phone: [facility] 06-11-2015 influenza, high dose seasonal, preservative-free Darin Alonzo MD Work Phone: [facility] Work Phone: 08-11-2014 pneumococcal conjuga te vaccine, 13 valent Darin Alonzo MD Work Phone: [facility] 06-25-2014 influenza, seasonal, injectable Darin Alonzo MD Work Phone: [facility] 06-22-2013 influenza virus vaccine, unspecified formulation Darin Alonzo MD Work Phone: [facility] Work Phone: 06-02-2012 influenza virus vaccine, unspecified formulation Darin Alonzo MD Work Phone: [facility] 03-22-2012 tetanus and diphther ia toxoids, adsorbed, preservative free, for adult use (2 Lf of tetanus toxoid and 2 Lf of diphtheria toxoid) Darin Alonzo MD Work Phone: [facility] 10-25-2011 zoster vaccine, live Darin Alonzo MD Work Phone: [facility] 06-30-2011 influenza virus vaccine, unspecified formulation Darin Alonzo MD Work Phone: [facility] 06-15-2010 influenza virus vaccine, unspecified formulation Darin Alonzo MD Work Phone: [facility] Work Phone: 06-18-2009 influenza virus vaccine, unspecified formulation Darin Alonzo MD Work Phone: [facility] 07-16-2007 influenza virus vaccine, unspecified formulation Darin Alonzo MD Work Phone: [facility] 07-03-2006 influenza virus vaccine, unspecified formulation Darin Alonzo MD Work Phone: [facility] Work Phone: 08-29-2003 pneumococcal polysaccharide vaccine, 23 valent Nakul Patino MD Work Phone: [facility] Payers Date Payer Category Payer Self-pay [id number] 2023 Unknown [id number] 2013 Private Health Insurance [facility] AARP SUPPLEMENT [id number] 2013-Present [phone] [address] [place] [address] Indemnity [id number] 2013 Private Health Insurance [id number] 2007 Medicare MEDICARE MEDICAR E A AND B [id number] 2007-Present [phone] [address] [address] [place] [address] Medicare [id number] 2007 Medicare [id number] 2007 Medicare [id number] Unknown [id number] Social History Date Type Detail Facility Start: 09-27-2013 End: 04-19-2022 Tobacco smoking status NHIS Never smoked tobacco [facility] Work Phone: Start: 11-08-2021 End: 03-07-2025 Alcohol intake Current drinker of alcohol (finding) [facility] Start: 08-10-2012 History SDOH Alcohol Comment Rarely. [facility] Start: 09-27-2013 End: 04-19-2022 Tobacco Comment Parents did not smoke in childhood home. Spouse smoked in home for about 10 years. [facility] Start: 1940 Sex Assigned At Not on file C [facility] Start: 03-10-2022 End: 03-21-2023 Tobacco smoking status NHIS Unknown if ever smoked [facility] Start: 1940 Sex Assigned At Female [facility] Start: 02-28-2022 End: 08-01-2022 Exposure to SARS-CoV-2 (event) Not sure [facility] Work Phone: Start: 09-27-2013 End: 04-19-2022 Tobacco use and exposure Smokeless tobacco non-user [facility] Work Phone: Start: 03-01-2023 End: 09-18-2023 History of Social function [facility] Work Phone: Start: 03-01-2023 End: 09-18-2023 Tobacco use panel [facility] Work Phone: Adult Depression Screening Assessment 0 [facility] Work Phone: Medical Equipment Procedure Code Equipment Code Equipment Original Text Equipment Identifier Dates [id number], [id number], [id number] Start: 03-26-2021 End: 05-17-2024 Comment on above: Test blood sugar(s) 1 times daily. Dx: Type 2 DM - Controlled E11.9 Insulin: No Test 1 time daily. [id number], [id number] Start: 12-19-2016 Comment on above: [facility] test strips. To be tested 2 times a day One touch ultra 2, t est strips Test 3 times daily. Dx: E11.9 Insulin: No Goals Date Patient Goal Desired Activity /State Functional Status Date Assessment Result Facility 03-11-2022 Functional status Ambulates;Bath room Privilege [facility] Work Phone: 10-09-2017 Are you deaf, or do you have serious difficulty hearing No 10/09/2017 12:55 PM Christy Bardales PA-C No [facility] 10-09-2017 Are you blind, or do you have serious difficulty seeing, even when wearing glasses No 10/09/2017 12:55 PM Christy Bardales PA-C No [facility] 10-09-2017 Do you have serious difficulty walking or climbing stairs No 10/09/2017 12:55 PM Christy Bardales PA-C No [facility] 10-09-2017 Do you have difficul ty dressing or bathing No 10/09/2017 12:55 PM Christy Bardales PA-C No [facility] 10-09-2017 Because of a physica l, mental, or emotional condition, do you have difficulty doing errands alone such as visiting a physician's office or shopping No 10/09/2017 12:55 PM Christy Bardales PA-C No [facility] Mental Status Date Assessment Result Facility 03-11-2022 Cognitive function Voice/Name [facility] Work Phone: 03-10-2022 Cognitive function Voice/Name [facility] Work Phone: 10-09-2017 Because of a physica l, mental, or emotional condition, do you have serious difficulty concentrating, remembering, or making decisions No 10/09/2017 12:55 PM Christy Bardales PA-C No [facility] Clinical Notes 08-11-2014 to 04-10-2025 Telephone Encounter - Christi Quiñonez MA - 04/10/2025 2:26 PM EDTTelephone Encounter - Christi Quiñonez MA - 04/10/2025 2:26 PM EDTPatient InstructionsPatient Instructions Note Date & Type Note Facility 04-10-2025 Telephone encounter Note Printed medication list & sent to mail. Christi Quiñonez MA [facility] 04-10-2025 Miscellaneous Notes Printed medication list & sent to mail. Christi Quiñonez MA Please print a list of her medications And mail to her Regards, Darin Alonzo MD Pt called in and reports she will be flying down to [place] in June. She was wanting to know about taking her pills on her carry on. She said the corporate travel expert told her she they want them I [...] Aliyah Clemens RN documented in this encounter [facility] 04-10-2025 Telephone encounter Note Please print a list of her medications And mail to her Regards, Darin Alonzo MD [facility] 04-09-2025 Telephone encounter Note Pt called in and reports she will be flying down to [place] in June. She was wanting to know about taking her pills on her carry on. She said the corporate travel expert told her she they want them I the original bottles. The Pt states she wants to put them in the Monday-Monday pill container. Then she wanted to know if she had a print out of what she takes from the providers office would that be good enough, or does she need a letter from her provider. Please call and advise. Aliyah Clemens RN [facility] 03-07-2025 Griselda Barajas APRN.OVERCOILER - 03/07/2025 7:26 AM EDT - Continue [...] - Keep up your exercise routine at [employer] six days a week. - A magnesium refill has been sent: a two-week supply to [facility] now and a 180-day supply via [facility] (expected in about one week). - Schedule a full blood panel in three months to check magnesium level, hemoglobin A1c, kidney and liver function, electrolytes, thyroid, and cholesterol. - If you choose to try increasing telmisartan and stopping amlodipine, take two telmisartan daily, stop amlodipine, monitor your blood pressure at home, and notify me via [employer]. - If you wish to trial stopping your statin before the cholesterol recheck, hold it for 4-6 weeks prior to your lab draw. documented in this encounter [facility] 03-07-2025 Note HNO ID: [id number] Author: GRISELDA LEMA APRN.OLESYA Service: ? Author Type: Nurse Practitioner Type: Progress Notes Filed: 03/07/2025 08:35 Note Text: CC: Patient presents with: Recheck: 4 week follow up HPI Shannon Leija is a 84 year old female who presents today for follow up on leg cramps and insomnia. Recording using [employer] software for draft documentation of the visit was discussed with the patient/authorized ocean import representative; all questions welcomed and answered. Patient/authorized ocean import representative agreed to proceed Muscle Cramps: - [...] with sleep. Lifestyle: - Shannon exercises at [employer] six days a week. - Enjoys attending shows at [employer]. REVIEW OF SYSTEMS General: no fevers, no [...] mg Tab Take 81 mg by mouth. Ytaepchloxrxe-Uatzmnsr-Qoyuub (CENTRUM SILVER) tab Take 1 tablet by [...] mood and affect (more content not included)... [facility] 03-07-2025 History of Presen t illness Narrative CC: Patient presents with: Recheck: 4 week follow up HPI Shannon Leija is a 84 year old female who presents today for follow up on leg cramps and insomnia. Recording using [employer] software for draft documentation of the visit was discussed with the patient/authorized ocean import representative; all questions welcomed and answered. Patient/authorized ocean import representative agreed to proceed Muscle Cramps: - [...] with sleep. Lifestyle: - Shannon exercises at [employer] six days a week. - Enjoys attending shows at [employer]. REVIEW OF SYSTEMS General: no fevers, no [...] mg Tab Take 81 mg by mouth. Naefpmabkmedx-Fnnezrer-Knhkjo (CENTRUM SILVER) tab Take 1 tablet by [...] Diabetic Foot Exam due on 03/21/2025 Covid-19 Vaccine( season) due on 10/11/2025 Urine Albumin:Creatinine Ratio due [...] Refill for magnesium sent: 2-week supply to [facility] and 3-month supply to [facility]. 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 Prescription instructions reviewed with patient as applicable. Potential red flag symptoms discussed with the patient. Reviewed appropriate action plan to take if red flag symptoms occur. Patient agreeable to treatment plan. Griselda Lema APRN.OLESYA documented in this encounter [facility] 03-03-2025 Telephone encounter Note Patient to contact office. Lo Miranda LPN [facility] 03-03-2025 Miscellaneous Notes Patient to contact office. Lo Miranda LPN documented in this encounter [facility] 03-03-2025 Telephone encounter Note PILAR 12/13/24 Patient phones requesting refills as follows: Requested Prescriptions Pending Prescriptions Disp Refills ipratropium bromide (ATROVENT) 42 mcg (0.06 %) nasal spray [Pharmacy Med Name: Ipratropium Merigold 0.06 % Nasal Solution] 135 mL 3 Sig: USE 2 SPRAYS NASALLY 4 TIMES DAILY Please review and advise. Charisse Lagos LPN [facility] 03-03-2025 Miscellaneous Notes PILAR 12/13/24 Patient phones requesting refills as follows: Requested Prescriptions Pending Prescriptions Disp Refills ipratropium bromide (ATROVENT) 42 mcg (0.06 %) nasal spray [Pharmacy Med Name: Ipratropium Merigold 0.06 % Nasal Solution] 135 mL 3 Sig: USE 2 SPRAYS NASALLY 4 TIMES DAILY Please review and advise. Charisse Lagos LPN documented in this encounter [facility] 02-10-2025 Telephone encounter Note Discussed further in visit Griselda Lema APRN.CNP [facility] 02-10-2025 Miscellaneous Notes Discussed further in visit Griselda Lema APRN.CNP Patient notified and states taking medication daily after lunch. Magnesium level actually went down further. Is she tolerating the supplement I sent in and taking as ordered? Thank you Griselda Lema APRN.CNP documented in this encounter [facility] 02-07-2025 Instructions Griselda Lema APRN.CNP - 02/07/2025 7:31 AM EDT - Stop taking pantoprazole starting tomorrow morning. - Begin famotidine (Pepcid) 40 mg at bedtime tonight; prescription sent to [facility] for a 30-day supply. Once your reflux [...] at bedtime as prescribed; refills sent to [facility] and [facility]. - Watch for any return of muscle cramps, heartburn, cough, or loose stools and let us know if these problems persist. documented in this encounter [facility] 02-07-2025 Note HNO ID: [id number] Author: GRISELDA LEMA APRN.OLESYA Service: ? Author [...] started on a magnesium supplement. Recording using [employer] software for draft documentation of the visit was discussed with the patient/authorized ocean import representative; all questions welcomed and answered. Patient/authorized ocean import representative agreed to proceed Hypomagnesemia: - Magnesium [...] mg Tab Take 81 mg by mouth. Ejvbmiifprjel-Sojunlvu-Fqtwft (CENTRUM SILVER) tab Take 1 tablet by [...] Wt 72.1 k (more content not included)... [facility] 02-07-2025 History of Presen t illness Narrative CC: Patient presents with: Recheck: 4 week follow up HPI Shannon Leija is a 84 year old female who presents today for follow up on insomnia which she was started on trazadone for and muscle cramps. Was found to have low magnesium so started on a magnesium supplement. Recording using [employer] software for draft documentation of the visit was discussed with the patient/authorized ocean import representative; all questions welcomed and answered. Patient/authorized ocean import representative agreed to proceed Hypomagnesemia: - Magnesium [...] mg Tab Take 81 mg by mouth. Viuqdnyvqszpn-Cwkdnlzr-Srgirp (CENTRUM SILVER) tab Take 1 tablet by [...] Vaccine(1 - Tdap) due on 02/23/2024 Covid-19 Vaccine(2023- season) due on 10/11/2025 Diabetic [...] - Magnesium supplementation to be filled at [facility]. - Will reassess symptoms at follow-up. - recheck mag level in 1-2 weeks. 3. Gastroesophageal reflux disease without esophagitis (K21.9) - Suspect pantoprazole contributing to hypomagnesemia. - Discontinued pantoprazole. - Initiated famotidine 40 mg orally at bedtime; prescription sent to [facility] for 30 days. - Will evaluate efficacy of famotidine in controlling reflux symptoms. 4. Acute cough (R05.1) - Cough well-controlled with current inhaler therapy from pulmonology. - No wheezing, shortness of breath, or other respiratory symptoms reported. 5. Insomnia, unspecified type (G47.00) - Insomnia partially managed with trazodone; however, sleep disrupted by muscle cramps. - Continue trazodone; prescription refilled at [facility]. Short Rx sent to local pharmacy - [...] Griselda Lema APRN.CNP documented in this encounter [facility] 02-07-2025 Telephone encounter Note Will discuss further at upcoming appointment Griselda Lema APRN.CNP [facility] 02-07-2025 Miscellaneous Notes Will discuss further at upcoming appointment Griselda Lema APRN.CNP Patient called said she continues to have leg cramps even with taking the magnesium chloride 64mg Patient asking if a higher dose should be called in? She has 7 pills left Can be reached at [phone] Please advise documented in this encounter [facility] 02-05-2025 Telephone encounter Note Patient notified and states taking medication daily after lunch. [facility] 02-05-2025 Telephone encounter Note Magnesium level actually went down further. Is she tolerating the supplement I sent in and taking as ordered? Thank you Griselda Lema APRN.CNP [facility] 02-05-2025 Telephone encounter Note Patient needs to contact office. Appt scheduled 02/07/3025. Lo Miranda LPN [facility] 02-05-2025 Miscellaneous Notes Patient needs to contact office. Appt scheduled 02/07/3025. Lo Miranda LPN documented in this encounter [facility] 02-04-2025 Telephone encounter Note Patient called said she continues to have leg cramps even with taking the magnesium chloride 64mg Patient asking if a higher dose should be called in? She has 7 pills left Can be reached at [phone] Please advise [facility] Work Phone: 01-15-2025 Telephone encounter Note Left message on Project Manager. [facility] 01-15-2025 Miscellaneous Notes Left message on Project Manager. I sent in a prescription for her to [facility] to take daily. Thank you Griselda Lema APRN.CNP Phoned patient and went over results, notes from Griselda Lema AUTOMOTIVE PAINT TECHNICIAN with understanding. Patient is asking what dose of Magnesium does she need to be taking? Magnesium is low and possibly the cause of her cramping. Start once a day supplement and recheck in 1-2 weeks after starting this. Thank you Griselda Lema APRN.CNP documented in this encounter [facility] 01-15-2025 Telephone encounter Note I sent in a prescription for her to [facility] to take daily. Thank you Griselda Lema APRN.CNP [facility] 01-13-2025 Telephone encounter Note Phoned patient and went over results, notes from Griselda Lema AUTOMOTIVE PAINT TECHNICIAN with understanding. Patient is asking what dose of Magnesium does she need to be taking? [facility] 01-13-2025 Telephone encounter Note Magnesium is low and possibly the cause of her cramping. Start once a day supplement and recheck in 1-2 weeks after starting this. Thank you Griselda Lema APRN.CNP [facility] 01-10-2025 Instructions Griselda Lema APRN.CNP - [...] any further adjustments. documented in this encounter [facility] 01-10-2025 Note HNO ID: [id number] Author: GRISELDA LEMA APRN.OLESYA Service: ? Author Type: Nurse Practitioner Type: Progress Notes Filed: 01/10/2025 07:59 Note Text: CC: Patient presents with: Recheck: 3 month follow up HPI Shannon Leija is a 84 year old female who presents today for routine follow up. Recording using [employer] software for draft documentation of the visit was discussed with the patient/authorized ocean import representative; all questions welcomed and answered. Patient/authorized ocean import representative agreed to proceed Diabetes Mellitus: - [...] dyspnea, edema, or headaches. - Exercises at [employer] 6 days a week: strength training and cardio on /, cardio on /Mon. - Participating in a [...] Insulin: No COMPO (more content not included)... [facility] 01-10-2025 History of Presen t illness Narrative CC: Patient presents with: Recheck: 3 month follow up IFRAH Leija is a 84 year old female who presents today for routine follow up. Recording using [employer] software for draft documentation of the visit was discussed with the patient/authorized ocean import representative; all questions welcomed and answered. Patient/authorized ocean import representative agreed to proceed Diabetes Mellitus: - [...] dyspnea, edema, or headaches. - Exercises at [employer] 6 days a week: strength training and [...] mg Tab Take 81 mg by mouth. Fslzwofxdbgsb-Zkzdsdgx-Uawqao (CENTRUM SILVER) tab Take 1 tablet by [...] Never done Anxiety Screening Never done DTaP,Tdap,Td Vaccine( - Tdap) due on 02/23/2024 Covid-19 Vaccine(2023- season) due on 10/11/2025 Diabetic [...] 2 diabetes mellitus without complication, unspecified whether jail insulin use (HCC) (E11.9) - Hemoglobin A1c [...] Griselda Lema APRN.CNP documented in this encounter [facility] 12-23-2024 Telephone encounter Note RX pended for mail order Charisse Lagos LPN [facility] 12-23-2024 Miscellaneous Notes RX pended for mail order Charisse Lagos LPN documented in this encounter [facility] 12-13-2024 History of Presen t illness [...] TAKE 1 TABLET BY MOUTH TWICE DAILY Mnnaopzxaowzy-Bwweccpn-Wwcpnb Tab Commonly known as: CENTRUM SILVER pantoprazole [...] DATE OF EXAM: Dec 05 2023 8:38AM [facility] 0541 - CT CHEST WO IVCON / [...] abnormality in the imaged upper abdomen. Cholelithiasis. Burnishing Machine Operator (topogram) images: No additional findings. Labs: [...] Neut (k/uL) Date Value 12/15/2023 4.38 Abs Perkins (k/uL) Date Value 12/15/2023 0.45 07/08/2020 0.41 [...] which included preparing to see the patient, soit-sw-elbd patient care, completing clinical documentation, performing a medically appropriate examination, counseling and educating the patient/family/caregiver, and ordering medications, tests, or procedures. documented in this encounter [facility] 12-13-2024 Note HNO ID: [id number] Author: DORIE GILL APRN.OLESYA Service: ? Author [...] TAKE 1 TABLET BY MOUTH TWICE DAILY Diibssnnrujgf-Mjsmisgg-Ktdepc Tab Commonly known as: CENTRUM SILVER pantoprazole [...] DATE OF EXAM: Dec 05 2023 8:38AM [facility] 0541 - CT CHEST WO IVCON / [...] chest 09/29/2010 RESULT: (more content not included)... [facility] 11-20-2024 Telephone encounter Note Prescription Refill Information [...] Pagan RN November 20, 2024 8:37 AM [facility] 11-20-2024 Miscellaneous Notes Prescription Refill Information [...] 2024 8:37 AM documented in this encounter [facility] 11-18-2024 Telephone encounter Note Patient calling again to let us know that she had been instructed by PCP recently to begin discontinuing her pantoprazole. She is currently using this every 3 days. Advised patient she should return to daily use- could certainly be contributing to her increased coughing. Will make EB aware. Charisse Lagos LPN [facility] 11-18-2024 Miscellaneous Notes Patient calling again to let us know that she had been instructed by PCP recently to begin discontinuing her pantoprazole. She is currently using this every 3 days. Advised patient she should return to daily use- could certainly be contributing to her increased coughing. Will make EB aware. Charisse aLgos LPN Patient calling with one week history of cough and PND. Cough is forceful and occasionally productive of clear mucus, worst overnight. No fever, chills, or myalgias. Some chest discomfort from continued cough and has had episodes of post tussive emesis. She denies wheezing. Asking if she should be treated for exacerbation? Charisse Lagos LPN documented in this encounter [facility] 11-18-2024 Telephone encounter Note Patient calling with one week history of cough and PND. Cough is forceful and occasionally productive of clear mucus, worst overnight. No fever, chills, or myalgias. Some chest discomfort from continued cough and has had episodes of post tussive emesis. She denies wheezing. Asking if she should be treated for exacerbation? Charisse Lagos LPN [facility] 10-17-2024 Telephone encounter Note Per MyChart message from 12/13/23- patient may benefit from ICC/LABA therapy, but she wanted to continue ICC alone as she had just switched to Arnuity. PILAR 06/14/24- LABA was offered and patient declined as she had just filled a 90 day supply of Arnuity. Please advise. Charisse Lagos LPN [facility] 10-17-2024 Miscellaneous Notes Per Vibha message from 12/13/23- patient may benefit from [...] Christy Pratt MA documented in this encounter [facility] 10-17-2024 Telephone encounter Note Patient phones to report she has been using arnuity ellipta inhaler but is still coughing. She is wondering if you wan to change her medication. [facility] She reports having an appointment on 12/13/24 but is available to come in sooner if indicated by the provider. Christy Pratt MA [facility] 10-11-2024 Note HNO ID: [id number] Author: GRISELDA LEMA APRN.OVERCOILER Service: ? Author Type: Nurse Practitioner Type: [...] him. Is starting grief sharing class at [employer] soon and hoping this will help. Has [...] 1/2 tablet on Sundays blood sugar diagnostic (CarnivalTOUCH ULTRA TEST) test strip TEST 1 TIME [...] mg Tab Take 81 mg by mouth. Tubjuvkxlvwoz-Xrphvdcp-Qquvwy (CENTRUM SILVER) tab Take 1 tablet by mouth once daily. FAMILY HISTORY Adopted: Yes Social History Tobacco Use Smoking status: Never Smokeless tobacco: Never Tobacco comments: (more content not included)... [facility] 10-11-2024 History of Presen t illness Narrative [...] him. Is starting grief sharing class at [employer] soon and hoping this will help. Has [...] mg Tab Take 81 mg by mouth. Oqnupvqjcinao-Akfjxogz-Tsstwv (CENTRUM SILVER) tab Take 1 tablet by [...] Advance Directive Discussion due on 09/11/2024 Covid-19 Vaccine( season) due on 10/11/2025 Diabetic [...] 2 diabetes mellitus without complication, unspecified whether jail insulin use (HCC) - ICD9: 250.00, ICD10: [...] - Instructed patient to contact office or ogxsx-ts-ryoj after-hours promptly should condition worsen or any new symptoms appear. - [facility] and after hours crisis line 4. Acquired hypothyroidism - ICD9: 244.9, ICD10: E03.9 Not discussed today, blood work ordered to be discussed at next appointment - THYROID STIMULATING HORMONE Griselda Lema APRN.CNP Prescription instructions reviewed with patient as applicable. Potential red flag symptoms discussed with the patient. Reviewed appropriate action plan to take if red flag symptoms occur. Patient agreeable to treatment plan. Griselda Lema APRN.CNP documented in this encounter [facility] 09-19-2024 History of Presen t illness [...] PATIENT PRESENTS WITH AN IMPLANTABLE OR ATTACHED LEAN ENGINEER: No RADIOLOGY DEPARTMENT: Mammography PERIPHERAL IV DATA: Not applicable SIGNED BY: Poncho Adler September 19, 2024 10:32 AM documented in this encounter [facility] 09-19-2024 Note HNO ID: [id number] Author: REBEKAH GUERRIER Mammo Tech Service: ? Author Type: Bariatric Surgeon Type: Progress Notes Filed: 09/19/2024 10:32 Note [...] PATIENT PRESENTS WITH AN IMPLANTABLE OR ATTACHED LEAN ENGINEER: No RADIOLOGY DEPARTMENT: Mammography PERIPHERAL IV DATA: Not applicable SIGNED BY: Rebekah Guerrier [employer] September 19, 2024 10:32 AM [facility] 09-19-2024 Telephone encounter Note Patient calling and asking about thyroid lab testing results and instructions. Patient Notified: Thyroid levels in normal range. Continue current dosing of levothyroxine. Take care Griselda Lema APRN.OVERCOILER Patient voices understanding. Sarina Bobby RN [facility] 09-19-2024 Miscellaneous Notes Patient calling and asking about thyroid lab testing results and instructions. Patient Notified: Thyroid levels in normal range. Continue current dosing of levothyroxine. Take care Griselda Lema APRN.OVERCOILER Patient voices understanding. Sarina Bobby RN documented in this encounter [facility] 08-07-2024 Telephone encounter Note Mammogram order placed. Please contact patient to schedule. Arturo Main MA [facility] 08-07-2024 Miscellaneous Notes Mammogram order placed. Please contact patient to schedule. Arturo Main MA Please help her schedule Regards, Darin Alonzo MD Patient calls and states that it is time for her annual mammogram. Patient asking if orders can be placed so that she can get this scheduled? Sarina Bobby RN documented in this encounter [facility] 08-06-2024 Telephone encounter Note Please help her schedule Regards, Darin Alonzo MD [facility] 08-06-2024 Telephone encounter Note Patient calls and states that it is time for her annual mammogram. Patient asking if orders can be placed so that she can get this scheduled? Sarina Bobby RN [facility] 08-05-2024 Telephone encounter Note Patient notified. [facility] 08-05-2024 Miscellaneous Notes Patient notified. TSH still abnormal. Verify she is taking 1 tablet daily. If so, cut one tablet in half once daily and we will recheck in 4-6 weeks. Thank you Griselda Lema APRN.CNP documented in this encounter [facility] 08-05-2024 Telephone encounter Note TSH still abnormal. Verify she is taking 1 tablet daily. If so, cut one tablet in half once daily and we will recheck in 4-6 weeks. Thank you Griselda Lema APRN.CNP [facility] 06-24-2024 Telephone encounter Note Patient notified and Health Maintenance updated. [facility] 06-24-2024 Miscellaneous Notes Patient notified and Health Maintenance updated. No need to get one at this time. Thank you Griselda Lema APRN.CNP Patient calls and wanted office to know that she received her RSV Vaccine today at [facility] (06/24/2024) Patient also was checking with Griselda to see if she needed to get Dtap. Patient states that this was discussed in office that she had gotten a shot about a year ago when [facility]. Patient making sure that she is not supposed to get another one. Please review and advise, Sarina Bobby RN documented in this encounter [facility] 06-24-2024 Telephone encounter Note No need to get one at this time. Thank you Griselda Lema APRN.CNP [facility] 06-24-2024 Telephone encounter Note Patient calls and wanted office to know that she received her RSV Vaccine today at [facility] (06/24/2024) Patient also was checking with Griselda to see if she needed to get Dtap. Patient states that this was discussed in office that she had gotten a shot about a year ago when [facility]. Patient making sure that she is not supposed to get another one. Please review and advise, Sarina Bobby RN [facility] 2024 Note HNO ID: [id number] Author: GRISELDA LEMA APRN.CNP Service: ? Author [...] Sulfa (Sulfonamide Antibiotics) MEDICATIONS blood sugar diagnostic (So1 ULTRA TEST) test strip TEST 1 TIME [...] mg Tab Take 81 mg by mouth. Daurniftmxyvh-Lzhwfhlt-Kaqemq (CENTRUM SILVER) tab Take 1 tablet by mouth once daily. FAMILY HISTORY Adopted: Yes Social History Tobacco Use Smoking status: Never Smokeless tobacco: Never Tobacco comments: [place] (more content not included)... [facility] 2024 History of Presen t illness Narrative [...] Sulfa (Sulfonamide Antibiotics) MEDICATIONS blood sugar diagnostic (CarnivalTOUCH ULTRA TEST) test strip TEST 1 TIME [...] mg Tab Take 81 mg by mouth. Hjwxnamijmhxf-Zgzrddon-Isigno (CENTRUM SILVER) tab Take 1 tablet by [...] 1-dose 75+ series) due on 08/17/2024 Covid-19 Vaccine( season) due on 07/04/2024 HbA1C due on 12/12/2024 Diabetic Foot Exam due on 03/21/2025 Urine Albumin:Creatinine Ratio due on 06/13/2025 LDL Cholesterol due on 06/13/2025 Bone Density Screening Completed Advance Directive Discussion Completed Shingrix Vaccine Completed Pneumococcal Vaccine: 65+ Completed Colorectal Cancer Screening Discontinued DATA REVIEWED: Most recent labs ASSESSMENT/PLAN: 1. Controlled type 2 diabetes mellitus without complication, 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) - ICD9: 250.00, ICD10: [...] Griselda Lema APRN.CNP documented in this encounter [facility] 06-14-2024 History of Presen t illness [...] TAKE 1 TABLET BY MOUTH TWICE DAILY Cslbpbljfjnuz-Sctxszry-Elxsyf Tab Commonly known as: CENTRUM SILVER pantoprazole [...] subcentimeter pulmonary nodules 3. No thoracic lymphadenopathy Stove Polisher: SAVITA Transcribe Date/Time: Dec 07 2023 4:07P Dictated by : ARACELI ZARAGOZA MD This examination was interpreted and the report reviewed and electronically signed by: ARACELI ZARAGOZA MD on Dec 07 2023 4:20PM EST Results-Findings * * *Final Report* * * DATE OF EXAM: Dec 05 2023 8:38AM [facility] 0541 - CT CHEST WO IVCON / [...] Pneumovax 23 - xx Influenza - xx COVID- - 04/2024 RSV- xx Review of Systems Constitutional: Negative [...] which included preparing to see the patient, sipw-ar-lvrd patient care, completing clinical documentation, performing a medically appropriate examination, ordering medications, tests, or procedures, and communicating results to the patient/family/caregiver. documented in this encounter [facility] 06-14-2024 Note HNO ID: [id number] Author: DORIE GILL APRN.CNP Service: ? Author Type: Nurse Practitioner Type: Progress Notes Filed: 06/14/2024 10:34 Note Text: Pulmonary Medicine Patients name: Shannon Leija PCP: Darin Alonzo MD CC: follow-up, chronic cough HPI: Shannon Lieja is a 83 year old female never [...] TAKE 1 TABLET BY MOUTH TWICE DAILY Ehnldirmehylk-Ohotkykg-Oiucrt Tab Commonly known as: CENTRUM SILVER pantoprazole [...] subcentimeter pulmonary nodules 3. No thoracic lymphadenopathy Stove Polisher: SAVITA Transcribe Date/Time: Dec 07 2023 4:07P Dictated by : ARACELI ZARAGOZA MD This examination was interpreted and the report reviewed and electronically signed by: ARACELI ZARAGOZA MD on Nov 10 (more content not included)... [facility] 05-17-2024 Telephone encounter Note Prescription Refill Information [...] Hill LPN May 17, 2024 2:40 PM [facility] 05-17-2024 Miscellaneous Notes Prescription Refill Information [...] 2024 2:40 PM documented in this encounter [facility] 05-16-2024 Telephone encounter Note The patient [...] Curtis LPN May 16, 2024 9:56 AM [facility] 05-16-2024 Miscellaneous Notes The patient has [...] 2024 9:56 AM documented in this encounter [facility] 04-25-2024 Telephone encounter Note Will watch for forms. [facility] 04-25-2024 Miscellaneous Notes Will watch for forms. Patient calls just to notify office that she saw Dr Chaney this morning at [facility] and ordered diabetic shoes. She just wanted office to know that we would be seeing an order come to us. documented in this encounter [facility] 04-25-2024 Telephone encounter Note Patient calls just to notify office that she saw Dr Chaney this morning at [facility] and ordered diabetic shoes. She just wanted office to know that we would be seeing an order come to us. [facility] 03-21-2024 Instructions Griselda Lema APRN.CNP - 03/21/2024 7:44 AM EDT Call insurance to see if cost of alinauvney is going to remain in the 400s. documented in this encounter [facility] 03-21-2024 History of Presen t illness Narrative CC: Patient presents with: Recheck: 3 month DM follow up HPI Shannon Leija is a 83 year old female who presents today for diabetic follow up. Recently lost her so dealing with grief. Staying busy with [employer] members, neighbors, friends, and is maintaining her [...] not check BP's generally. Shannon Goes to [employer] almost daily and has friends there she [...] mg Tab Take 81 mg by mouth. Hgjowppcgssxw-Gvjbghwj-Licpfz (CENTRUM SILVER) tab Take 1 tablet by [...] 2 diabetes mellitus without complication, unspecified whether jail insulin use (HCC) - ICD9: 250.00, ICD10: [...] Is going to start grief counseling at [employer] next month 6. Acquired hypothyroidism - ICD9: [...] Griselda Lema APRN.CNP documented in this encounter [facility] 02-22-2024 Telephone encounter Note Changed to ointment. [facility] 02-22-2024 Miscellaneous Notes Changed to ointment. Patient calls to report [facility] is not able to dispense the mupirocin cream as they don't have it in stock. Patient asking provider if it is ok to switch to ointment that is in stock. Pended for review. Yoon Jones RN documented in this encounter [facility] 02-22-2024 Telephone encounter Note Patient calls to report [facility] is not able to dispense the mupirocin cream as they don't have it in stock. Patient asking provider if it is ok to switch to ointment that is in stock. Pended for review. Yoon Jones, RN [facility] 02-22-2024 Nurse Note This nurse washed wound with soap and water and applied bacitracin cream to wound, covered with Band-Aid and educated pt on washing wound and covering same, she was able to understand. Catina Merlos LPN [facility] 02-22-2024 Nurse Note This nurse washed wound with soap and water and applied bacitracin cream to wound, covered with Band-Aid and educated pt on washing wound and covering same, she was able to understand. Catina Merlos LPN documented in this encounter [facility] 02-22-2024 History of Presen t illness Narrative This note was created using [employer]un[employer]. Subjective Shannon Leija is a 83 year [...] history is provided by the patient. No english language arts teacher was used. Laceration The incident occurred 5 [...] mg Tab Take 81 mg by mouth. Bncgrpwjnudbj-Yufzsmoe-Xxldkh (CENTRUM SILVER) tab Take 1 tablet by [...] wound care F/U with PCP Darleen Orr APRN.OVERCOILER documented in this encounter [facility] 02-02-2024 Telephone encounter Note The following approved medication requests have been transmitted electronically. Requested Prescriptions Pending Prescriptions Disp Refills Telmisartan 20 mg tablet [Pharmacy Med Name: Telmisartan 20 MG Oral Tablet] 90 tablet 3 Sig: TAKE 1 TABLET BY MOUTH ONCE DAILY Yahir Parekh APRN.OVERCOILER [facility] Work Phone: 02-02-2024 Miscellaneous Notes The following approved medication requests have been transmitted electronically. Requested Prescriptions Pending Prescriptions Disp Refills Telmisartan 20 mg tablet [Pharmacy Med Name: Telmisartan 20 MG Oral Tablet] 90 tablet 3 Sig: TAKE 1 TABLET BY MOUTH ONCE DAILY Yahir Parekh APRN.OLESYA Patient has been identified by name [...] Kathia Mayers LPN. documented in this encounter [facility] 02-02-2024 Telephone encounter Note Patient has [...] Please advise. Thank you. Kathia Mayers LPN. [facility] 01-31-2024 Telephone encounter Note Patient has [...] primary care: 03/21/2024 Please advise. Thank you. Kahtia Mayers LPN. [facility] 01-31-2024 Miscellaneous Notes Patient has been [...] Glimeperide 2mg twice daily be sent to [facility] as pended. It was sent [...] Ria Lopez RN documented in this encounter [facility] 01-31-2024 Telephone encounter Note Patient calling [...] in primary care: 03/21/2024 Ria Lopez RN [facility] 01-10-2024 Telephone encounter Note Spoke with Shannon, she is doing ok. Very thankful for the call. Instructed patient if anything is needed not to hesitate to let us know. [facility] 01-10-2024 Miscellaneous Notes Spoke with Shannon, [...] Griselda Lema APRN.CNP documented in this encounter [facility] 01-08-2024 Telephone encounter Note T/C patient , johny schmidt. [facility] 01-08-2024 Telephone encounter Note Just received word that patient's spouse . Please send our condolences and ask if there is anything she needs from us. Thank you Griselda Lema APRN.CNP [facility] 12-18-2023 Miscellaneous Notes Patient calling to ask question about her dosing. Went over notes below from Griselda Lema AUTOMOTIVE PAINT TECHNICIAN with understanding, aware one tablet daily except one day a week one and one half tablets. Called and left a detailed voicemail notifying patient of providers message. Clinic phone number was left in case patient had any questions. Sent information to Pt through [employer] as well. Aliyah Clemens, SKY Thyroid level slightly abnormal which may be cause of her dizzy moments. Decrease to 1 tablet daily except 1 and 1/2 tablet one day a week versus her previous 2 tablets one day a week. Recheck in 4 weeks. Thank you Griselda Lema APRN.CNP documented in this encounter [facility] 12-15-2023 Instructions Griselda Lema APRN.CNP - 12/15/2023 7:47 AM EDT Increase glimepiride to 2 tablets with breakfast and 1 tablet with dinner. Call in 2 weeks if fasting blood sugar is consistently greater than 150 so we can increase it further. documented in this encounter [facility] 12-15-2023 History of Presen t illness [...] by mouth once daily. blood sugar diagnostic (Apogee PhotonicsUCH ULTRA TEST) test strip Test 1 time [...] mg Tab Take 81 mg by mouth. Veqcoqqpqvzcq-Dmtbvelg-Whvlnn (CENTRUM SILVER) tab Take 1 tablet by [...] 2 diabetes mellitus without complication, unspecified whether jail insulin use (HCC) - ICD9: 250.00, ICD10: [...] Griselda Lema APRN.CNP documented in this encounter [facility] 12-05-2023 History of Presen t illness [...] PATIENT PRESENTS WITH AN IMPLANTABLE OR ATTACHED LEAN ENGINEER: No RADIOLOGY DEPARTMENT: CT; Exam(s) Completed: Chest PERIPHERAL IV DATA: Not applicable SIGNED BY: RT Paula(R) December 05, 2023 9:31 AM documented in this encounter [facility] 12-04-2023 Miscellaneous Notes Patient has been [...] Alanis Daniel LPN. documented in this encounter [facility] 11-28-2023 History of Presen t illness Narrative Images from the original note were not included. . [facility] [place] Note Patient name: Shannon Leija PCP: Darin [...] mg Tab Take 81 mg by mouth. Sbjtbcarynkon-Iwsrmibw-Pakuom (CENTRUM SILVER) tab Take 1 tablet by [...] Flonase nasal spray Pamela Aranda MD [facility] [place] documented in this encounter [facility] 10-30-2023 Miscellaneous Notes Patient has been [...] Kathia Mayers LPN. documented in this encounter [facility] 08-14-2023 Miscellaneous Notes Patient has been [...] you. Kathia Mayers. documented in this encounter [facility] 08-01-2023 Miscellaneous Notes Pt will be due for a mammogram in August, pt calling for order to be placed. Order pending review. Please call pt to schedule when order is placed. 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 She reports wanting to wait a few days before beginning them. She has increased her inhaler to BID as prescription states and her tessalon pearls to TID as prescribed. She would like to see if this helps as she does not like to take the steroids unless necessary. Christy Pratt MA documented in this encounter [facility] 07-06-2023 Miscellaneous Notes Pt calling back. She said that she is agreeable to take a short course of steroids as long as that is safe since she is diabetic. [facility] Alanis Galvin MA Images from the original note [...] Christy Pratt MA documented in this encounter [facility] 05-29-2023 History of Presen t illness Narrative Images from the original note were not included. . [facility] [place] Note Patient name: Shannon Leija PCP: Darin [...] to poor control of her diabetes. At [facility], felt persistent cough more attributable to post [...] mg Tab Take 81 mg by mouth. Mgfiiomxnjorz-Zthuvzgg-Xiqims (CENTRUM SILVER) tab Take 1 tablet by [...] sooner with problems Pamela Aranda MD [facility] [place] documented in this encounter [facility] 05-19-2023 Instructions Griselda Lema APRN.OLESYA - 05/19/2023 9:11 AM EDT To wean off pantoprazole: Take 1 tablet every other day for a few weeks, then every 3rd for a few weeks, then stop. If you start having heartburn, abdominal pain, nausea, bloating or difficulty swallowing restart at previous step. documented in this encounter [facility] 05-19-2023 History of Presen t illness [...] 12 months Went to diabetic clinic at [facility] 6 weeks ago and has had improvement [...] pain/inflammation). Take with food. blood sugar diagnostic (CarnivalTOUCH ULTRA TEST) test strip Test 1 time [...] mg Tab Take 81 mg by mouth. Egeaiyzamtnrb-Aprqruvx-Wjaulp (CENTRUM SILVER) tab Take 1 tablet by [...] 2 diabetes mellitus without complication, 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) - ICD9: 250.00, ICD10: [...] Griselda Lema APRN.CNP documented in this encounter [facility] 04-18-2023 Miscellaneous Notes Patient has been [...] Lo Miranda LPN documented in this encounter [facility] 04-10-2023 History of Presen t illness [...] 2023 10:47 AM documented in this encounter [facility] 04-10-2023 History of Presen t illness [...] Sulfa (Sulfonamide Antibiotics) MEDICATIONS blood sugar diagnostic (So1 ULTRA TEST) test strip Test 1 time [...] mg Tab Take 81 mg by mouth. Jzmjyxkpuvitg-Doutgfhe-Zpxerj (CENTRUM SILVER) tab Take 1 tablet by [...] Patient agreeable to treatment plan Griselda Lema APRN.OLESYA documented in this encounter [facility] [facility] 03-01-2023 History of Presen t illness [...] PRESCRIPTION COMPOUNDED PRESCRIPTION Aspirin 81 mg Tab Mewlybsocjgwg-Oobgncyo-Kyvdqc (CENTRUM SILVER) tab Review of Systems CONSTITUTIONAL: [...] Darin Alonzo MD documented in this encounter [facility] 02-28-2023 Miscellaneous Notes Pt notified not [...] Kathia Swanson LPN documented in this encounter [facility] 02-28-2023 Miscellaneous Notes appt made for [...] pressure worse . documented in this encounter [facility] 02-27-2023 Miscellaneous Notes Patient has been [...] Kathia Swanson LPN documented in this encounter [facility] 02-23-2023 Miscellaneous Notes Patient calls back [...] Sarina Gomez LPN documented in this encounter [facility] 12-13-2022 Miscellaneous Notes Pt calls in for refill of levothyroxine 125 mcg. Previous rx [facility]. Patient has been [...] 7.9 10/18/2021 6.8 07/09/2021 8.0 Thank you. Alanis Daniel LPN documented in this encounter [facility] 11-25-2022 Instructions Pamela Aranda MD - 11/25/2022 10:18 AM EDT Obtain Flonase nasal spray. One spray each nostril once daily. Rinse mouth after use. documented in this encounter [facility] 11-25-2022 History of Presen t illness Narrative Images from the original note were not included. . [facility] [place] Note Patient name: Shannon Leija PCP: Darin Alonzo MD CC: Follow-up chronic cough HPI: Shannon Leija 82 year old female never smoker with PMH significant for follicular bronchiolitis, HTN, DM2, post nasal drip, hypothyroidism, GERD. 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 Last bronchoscopy in 2017 pertinent for bronchial inflammation. Initially treated with oral steroids then maintained on ICS. Currently taking Flovent 110 mcg 1 puff twice daily. At [facility] with me, she had been to local [...] mg Tab Take 81 mg by mouth. Vgnhfivhnfdmn-Rgzomcbh-Kxdbhj (CENTRUM SILVER) tab Take 1 tablet by [...] and antireflux measures Pamela Aranda MD [facility] [place] documented in this encounter [facility] 11-25-2022 Nurse Note Intake information documented in the prior visit with ANUEL Hollins today. documented in this encounter [facility] 11-25-2022 History of Presen t illness Narrative PULM FUNCTION SMARTBLOCK: Provider: Pamela Aranda MD Assisting Tech: ANUEL Hollins Spirometry: 1 documented in this encounter [facility] 11-09-2022 Miscellaneous Notes Patient has been [...] Jean Kaba RN documented in this encounter [facility] 11-07-2022 History of Presen t illness [...] 2022 10:02 AM documented in this encounter [facility] 11-01-2022 History of Presen t illness [...] on steroids at that time. She joined [employer] Right now she is doing the treadmill [...] PRESCRIPTION COMPOUNDED PRESCRIPTION Aspirin 81 mg Tab Fofgtxbmmfvcq-Hisnnlzi-Ntwhxx (CENTRUM SILVER) tab Review of Systems CONSTITUTIONAL: [...] 2 diabetes mellitus without complication, unspecified whether jail insulin use (HCC) - ICD9: 250.00, ICD10: E11.9 Cont the current medication and exercise regimen Darin Alonzo MD documented in this encounter [facility] 09-21-2022 Miscellaneous Notes Med updated to [...] result. Thank you. documented in this encounter [facility] 08-23-2022 Miscellaneous Notes August 23, 2022 PID: [id number] Shannon Leija [address] [place] [address] Dear Ms. Leija, We are pleased to [...] report will be kept on file at [facility] as part of your permanent medical record and are available for your continuing care. Thank you for allowing us to help in meeting your health care needs. Sincerely, Dr. Hines Interpreting Radiologist [facility] (Normal over 40) documented in this encounter [facility] 08-22-2022 History of Presen t illness [...] 2022 9:45 AM documented in this encounter [facility] 08-19-2022 Miscellaneous Notes Patient has been [...] Kathia Swanson LPN documented in this encounter [facility] 08-01-2022 History of Presen t illness [...] PRESCRIPTION COMPOUNDED PRESCRIPTION Aspirin 81 mg Tab Zmmhupdjhqxhk-Xckbekcy-Qhtkgq (CENTRUM SILVER) tab Review of Systems CONSTITUTIONAL: [...] 2 diabetes mellitus without complication, 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) - ICD9: 250.00, ICD10: [...] Darin Alonzo MD documented in this encounter [facility] 08-01-2022 Nurse Note Sees at [facility] due to see him next year documented in this encounter [facility] 07-28-2022 Miscellaneous Notes Order placed. Last screening on 08/19/21 so needs completed after this date. Please let patient know. Thank you Griselda Lema APRN.OLESYA Patient calls to request order for yearly mammogram be placed. Last mammogram completed 08/19/2021. Please call patient at [phone] to schedule once order is placed. Yoon Jones RN documented in this encounter [facility] 07-19-2022 Miscellaneous Notes Patient has been [...] Aliyah Clemens RN documented in this encounter [facility] 07-15-2022 History of Presen t illness [...] mg Tab Take 81 mg by mouth. Wlnldohhmmgrg-Hxtluzxg-Clvaib (CENTRUM SILVER) tab Take 1 tablet by [...] EMR. IMMUNIZATIONS Prevnar 13 - 08/11/2014 Pneumovax 23 - 08/10/2015, 08/29/2003 Influenza - 07/02/2022 COVID-19 [...] IGE BLD - EOSINOPHIL ABS COUNT - [facility] 3. Gastroesophageal reflux disease without esophagitis - ICD9: 530.81, ICD10: K21.9 Symptoms controlled with PPI 4. Post-nasal drip - ICD9: 784.91, ICD10: R09.82 See #2. - IGE BLD - EOSINOPHIL ABS COUNT - [facility] Christy Williamson PA-C documented in this encounter [facility] 2022 Miscellaneous Notes Patient has been [...] Sarina Gomez LPN documented in this encounter [facility] 06-17-2022 Instructions Christy Williamson PA-C - 06/17/2022 1:51 PM EDT Prednisone 20 mg - take 2 tablets daily for 5 days. Check blood sugars while on Prednisone. Mucinex 1 tablet twice daily as needed to help thin secretions. documented in this encounter [facility] 06-17-2022 History of Presen t illness Narrative [facility] [place], 06/17/2022: Name: Shannon Leija : 1940 The [...] SOCH: Updated with patient today. IMMUNIZATIONS Prevnar 13 - 08/11/2014 Pneumovax - [...] Christy Williamson PA-C documented in this encounter [facility] 06-15-2022 History of Presen t illness [...] 2022 8:32 AM documented in this encounter [facility] 06-15-2022 History of Presen t illness Narrative CC: Patient presents with: Recheck: 1 week cough follow up HPI Shannon Leija is a 81 year old female who presents today for follow up on cough. Was in urgent care 2 weeks ago and prescribed doxycyline. Saw Michelle AUTOMOTIVE PAINT TECHNICIAN last week and given azithromycin, benzonatate, flonase, [...] 05/1980 BONE DENSITY MULTIPLE SITES 11/[address]Obrecht COLONOSCOPY FLX DX W/COLLJ SPEC WHEN PFRMD [...] mg Tab Take 81 mg by mouth. Ojnrhiyewbqzf-Uuuziyeu-Couaoe (CENTRUM SILVER) tab Take 1 tablet by [...] Griselda Lema APRN.CNP documented in this encounter [facility] 06-02-2022 Instructions Arsh Davalos APRN.CNP - [...] concerning to you. documented in this encounter [facility] 06-02-2022 History of Presen t illness Narrative Subjective HPI Nontoxic female presents urgent care chief complaint cough congestion. Duration of symptoms 1 week. Associated symptoms cough sinus pressure. Patient states her in [place] she did have a sore throat and [...] mg Tab Take 81 mg by mouth. Yvpchjqygtkjv-Kewbkrkd-Fvkckq (CENTRUM SILVER) tab Take 1 tablet by [...] of care. This note was generated using [employer]sch[employer] software. It may contain errors in wording, punctuation, or spelling. Arsh Davalos APRN.OLESYA documented in this encounter [facility] 05-09-2022 History of Presen t illness Narrative . [facility] [place] [facility] Patient name: Shannon Leija PCP: Darin [...] until February when she was admitted to [facility] hospital with hypertensive urgency. No stroke. Started [...] DATE OF EXAM: Sep 29 2010 10:04AM [facility] 0349 - CT CHEST WO CONTRAST / [...] To be tested 2 times a day Lfxobtswnhqxh-Biepjiqw-Cjleww (CENTRUM SILVER) ORAL Tab Take 1 tablet [...] -Conservative anti-reflux measures Pamela Aranda MD [facility] [place] documented in this encounter [facility] 04-22-2022 Miscellaneous Notes Patient calls and is asking if amlodipine can be sent to mail pharmacy for a 90 day supply with 3 refills? Order pended if agreeable. Sarina Bobby RN documented in this encounter [facility] 04-21-2022 Miscellaneous Notes Pt called and is notified of providers message. Pt voices understanding. Aliyah Clemens RN Prescription has been sent for new dosage. Thank you Griselda Lema APRN.OVERCOILER Natalie from [facility] pharmacy calling the Codeine-guaifenesin rx Dr Alonzo sent in for her is on manufacture back order. Asking for another rx to replace. They have Robitussin AC 10:100 per 5 ml in stock. Please send another rx patient has already been in to [facility] operator rx, knows about the issue, PCP is out this afternoon. Pending Robitussin rx if wanted needs completed. Please advise documented in this encounter [facility] 04-19-2022 Miscellaneous Notes Addended by: DARIN ALONZO on: 04/19/2022 05:00 PM Modules accepted: Orders documented in this encounter [facility] 04-19-2022 History of Presen t illness [...] PRESCRIPTION COMPOUNDED PRESCRIPTION Aspirin 81 mg Tab Udgbdtsvglhbf-Arelxuqy-Cdelvd (CENTRUM SILVER) ORAL Tab Review of Systems [...] 2 diabetes mellitus without complication, unspecified whether jail insulin use (HCC) - ICD9: 250.00, ICD10: E11.9 The patient has controlled diabetes mellitus, recently got it under control she is very proud of her self 3. Essential hypertension - ICD9: 401.9, ICD10: I10 Bp is well controlled. 4. Hyperlipidemia, unspecified hyperlipidemia type - ICD9: 272.4, ICD10: E78.5 Cont the statin medication. Darin Alonzo MD documented in this encounter [facility] 04-14-2022 Miscellaneous Notes Noted. Griselda Lema APRN.OLESYA Protocol recommends see provider in 2 weeks. [...] travel. No exposures. Protocols used: COUGH - [id number] documented in this encounter [facility] 04-11-2022 Miscellaneous Notes Patient has been [...] Kathia Swanson LPN documented in this encounter [facility] 03-23-2022 Miscellaneous Notes Patient returned call [...] the next visit, documented in this encounter [facility] 03-21-2022 History of Presen t illness Narrative Reason for Visit Patient presents with: Established Patient: [facility] hospital follow up-dizziness/nausea Shannon Leija is a 81 year old female who presents here today for Above Complaints Health Maintenance DILATED RETINAL EXAM HPI 11 days ago patient was admitted at [facility]. She was taken to the ER first [...] PRESCRIPTION COMPOUNDED PRESCRIPTION Aspirin 81 mg Tab Tngwjanjrvwvq-Llkueefz-Ivmodu (CENTRUM SILVER) ORAL Tab Review of Systems [...] Darin Alonzo MD documented in this encounter [facility] 03-18-2022 Miscellaneous Notes Patient notified. I [...] Sarina Bobby RN documented in this encounter [facility] 03-15-2022 Miscellaneous Notes Patient has been [...] Jean Kaba RN documented in this encounter [facility] 03-10-2022 History of Presen t illness [...] mg Tab Take 81 mg by mouth. Uingehdlzfxwe-Bzfxaxbg-Vvcnjw (CENTRUM SILVER) ORAL Tab Take 1 tablet [...] her to the ER. Report called to [facility]. Nakul Patino MD documented in this encounter [facility] 12-10-2021 Miscellaneous Notes Patient has been [...] Sarina Gomez LPN documented in this encounter [facility] 08-11-2014 History of Past i llness [...] of this encounter (statuses as of 12/10/2021) [facility] History of Past illness Narrative* Problem [...] of this encounter (statuses as of 03/10/2022) [facility] of [facility] Narrative* Problem [...] of this encounter (statuses as of 03/18/2022) [facility] Narrative* Problem [...] of this encounter (statuses as of 03/21/2022) [facility] Past [facility] Narrative* Problem [...] of this encounter (statuses as of 03/23/2022) [facility] Narrative* Problem [...] of this encounter (statuses as of 04/11/2022) [facility] Narrative* Problem [...] of this encounter (statuses as of 04/13/2022) [facility] of Past illness Narrative* Problem [...] of this encounter (statuses as of 04/19/2022) [facility] of [facility] Narrative* Problem [...] of this encounter (statuses as of 04/21/2022) [facility] Narrative* Problem [...] of this encounter (statuses as of 04/22/2022) [facility] Narrative* Problem [...] of this encounter (statuses as of 05/09/2022) [facility] Narrative* Problem [...] of this encounter (statuses as of 06/02/2022) [facility] Narrative* Problem [...] of this encounter (statuses as of 06/15/2022) [facility] Narrative* Problem [...] of this encounter (statuses as of 06/17/2022) [facility] Past illness Narrative* Problem [...] of this encounter (statuses as of 2022) [facility] Past [facility] Narrative* Problem [...] of this encounter (statuses as of 07/02/2022) [facility] Narrative* Problem [...] of this encounter (statuses as of 07/15/2022) [facility] Narrative* Problem [...] of this encounter (statuses as of 07/20/2022) [facility] Narrative* Problem [...] of this encounter (statuses as of 07/21/2022) [facility] Narrative* Problem [...] of this encounter (statuses as of 08/01/2022) [facility] Narrative* Problem [...] of this encounter (statuses as of 08/19/2022) [facility] Narrative* Problem [...] of this encounter (statuses as of 08/25/2022) [facility] Past [facility] Narrative* Problem [...] of this encounter (statuses as of 08/25/2022) [facility] Past [facility] Narrative* Problem [...] of this encounter (statuses as of 09/21/2022) [facility] Past [facility] Narrative* Problem [...] of this encounter (statuses as of 11/01/2022) [facility] Narrative* Problem [...] of this encounter (statuses as of 11/07/2022) [facility] Past [facility] Narrative* Problem [...] of this encounter (statuses as of 11/10/2022) [facility] Past [facility] Narrative* Problem [...] of this encounter (statuses as of 11/25/2022) [facility] Past [facility] Narrative* Problem [...] of this encounter (statuses as of 11/25/2022) [facility] Narrative* Problem [...] of this encounter (statuses as of 12/14/2022) [facility] Narrative* Problem [...] of this encounter (statuses as of 02/16/2023) [facility] Narrative* Problem [...] of this encounter (statuses as of 02/23/2023) [facility] Narrative* Problem [...] of this encounter (statuses as of 02/27/2023) [facility] Past [facility] Narrative* Problem [...] of this encounter (statuses as of 02/28/2023) [facility] Narrative* Problem [...] of this encounter (statuses as of 03/01/2023) [facility] Narrative* Problem [...] of this encounter (statuses as of 03/01/2023) [facility] Narrative* Problem [...] of this encounter (statuses as of 04/13/2023) [facility] Narrative* Problem [...] of this encounter (statuses as of 04/18/2023) [facility] Narrative* Problem [...] of this encounter (statuses as of 05/19/2023) [facility] Narrative* Problem [...] of this encounter (statuses as of 05/19/2023) [facility] Narrative* Problem [...] of this encounter (statuses as of 05/30/2023) [facility] Narrative* Problem [...] of this encounter (statuses as of 07/07/2023) [facility] Narrative* Problem [...] of this encounter (statuses as of 07/15/2023) [facility] Narrative* Problem [...] of this encounter (statuses as of 07/16/2023) [facility] Narrative* Problem [...] of this encounter (statuses as of 08/01/2023) [facility] Narrative* Problem [...] of this encounter (statuses as of 08/15/2023) [facility] Narrative* Problem [...] of this encounter (statuses as of 09/01/2023) [facility] Narrative* Problem [...] of this encounter (statuses as of 10/18/2023) [facility] Narrative* Problem [...] of this encounter (statuses as of 10/30/2023) [facility] Narrative* Problem [...] of this encounter (statuses as of 11/29/2023) [facility] Narrative* Problem [...] of this encounter (statuses as of 12/04/2023) [facility] Narrative* Problem [...] of this encounter (statuses as of 12/06/2023) [facility] Narrative* Problem [...] of this encounter (statuses as of 12/15/2023) [facility] Narrative* Problem [...] of this encounter (statuses as of 12/18/2023) [facility] Narrative* Problem [...] of this encounter (statuses as of 12/18/2023) [facility] Past [facility] Narrative* Problem [...] of this encounter (statuses as of 12/29/2023) [facility] noteNo assessment information availableWHolzer [facility] Work Phone: Evaluation note* Diagnosis Dizziness- Primary Dizziness and giddiness Headache, unspecified headache type Nausea Nausea alone [facility] Diagnosis Onset Date Resolution Status Carotid artery stenosis acut e Nausea acute Vertigo acute [facility] Work Phone: Evaluation note* Diagnosis Acute cough- Primary Controlled type 2 diabetes mellitus without complication, without long-term current use of insulin ([facility]) Hospital discharge follow-up Other follow-up examination Vertigo Dizziness and giddiness documented in this encounter [facility] note* Diagnosis Chronic cough- Primary Cough Controlled type 2 diabetes mellitus without complication, unspecified whether jail insulin use ([facility]) Essential hypertension Unspecified essential hypertension Hyperlipidemia, unspecified hyperlipidemia type [facility] Chronic [facility]- Primary Cough [facility] Diagnosis Follicular bronchiolitis (HCC)- Primary Other chronic bronchitis Post-nasal drip Postnasal drip Gastroesophageal reflux disease without esophagitis Esophageal reflux [facility] Diagnosis Suspected COVID-19 virus infection- Primary Sinobronchitis Unspecified sinusitis (chronic) [facility] Diagnosis Acute cough- Primary Post-nasal drip Postnasal drip [facility] Diagnosis Acute cough- Primary Follicular bronchiolitis (HCC) Other chronic bronchitis Gastroesophageal reflux disease without esophagitis Esophageal reflux [facility] Diagnosis Follicular bronchiolitis (HCC)- Primary Other chronic bronchitis Cough, unspecified type Gastroesophageal reflux disease without esophagitis Esophageal reflux Post-nasal drip Postnasal drip [facility] Diagnosis Controlled type 2 diabetes mellitus without complication, 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)- Primary Acquired hypothyroidism Unspecified hypothyroidism Essential hypertension Unspecified essential hypertension Hyperlipidemia, unspecified hyperlipidemia type [facility] Diagnosis Encounter for screening mammogram for malignant neoplasm of breast- Primary Other screening mammogram [facility] Diagnosis Essential hypertension- Primary Unspecified essential hypertension Hyperlipidemia, unspecified hyperlipidemia type Acquired hypothyroidism Unspecified hypothyroidism Controlled type 2 diabetes mellitus without complication, unspecified whether jail insulin use (HCC) Follicular bronchiolitis (HCC) Other chronic bronchitis [facility] Diagnosis Hyperlipidemia, unspecified hyperlipidemia type [facility] Diagnosis Follicular bronchiolitis (HCC) Other chronic bronchitis [facility] Diagnosis Follicular bronchiolitis (HCC)- Primary Other chronic bronchitis Post-nasal drip Postnasal drip Gastroesophageal reflux disease, unspecified whether esophagitis present [facility] Diagnosis Essential hypertension- Primary Unspecified essential hypertension Uncontrolled hypertension Unspecified essential hypertension [facility] Diagnosis Essential hypertension- Primary Unspecified essential hypertension Tenderness of right hip Pain in joint, pelvic region and thigh Right thigh pain Pain in limb Right ankle instability Other joint derangement, not elsewhere classified, ankle and foot documented in this encounter [facility] note* Diagnosis Controlled type 2 diabetes mellitus without complication, 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)- Primary Essential hypertension Unspecified essential hypertension Hyperlipidemia, unspecified hyperlipidemia type Acquired hypothyroidism Unspecified hypothyroidism documented in this encounter [facility] note* Diagnosis Follicular bronchiolitis- Primary Other chronic bronchitis Upper airway cough syndrome Cough documented in this encounter [facility] note* Diagnosis Encounter for screening mammogram for malignant neoplasm of breast Other screening mammogram documented in this encounter [facility] note* Diagnosis Encounter for screening mammogram for malignant neoplasm of breast- Primary Other screening mammogram documented in this encounter [facility] note* Diagnosis Follicular bronchiolitis (HCC)- Primary Other chronic bronchitis Chronic cough Cough Postnasal drip documented in this encounter [facility] note* Diagnosis Hyperlipidemia, unspecified hyperlipidemia type documented in this encounter [facility] note* Diagnosis Follicular bronchiolitis (HCC) Other chronic bronchitis Chronic cough Cough documented in this encounter [facility] note* Diagnosis Controlled type 2 diabetes mellitus without complication, unspecified whether jail insulin use (HCC)- Primary Essential hypertension Unspecified essential hypertension Acquired hypothyroidism Unspecified hypothyroidism Dizziness Dizziness and giddiness documented in this encounter [facility] note* Diagnosis Medication management- Primary Encounter for long-term (current) use of other medications Dizziness Dizziness and giddiness Acquired hypothyroidism Unspecified hypothyroidism documented in this encounter [facility] note* Diagnosis Elbow wound, left, initial encounter- Primary documented in this encounter [facility] note* Diagnosis Controlled type 2 diabetes mellitus without complication, unspecified whether jail insulin use (HCC)- Primary Hyperlipidemia, unspecified hyperlipidemia type Essential hypertension Unspecified essential hypertension Gastroesophageal reflux disease without esophagitis Esophageal reflux Grief Adjustment disorder with depressed mood Acquired hypothyroidism Unspecified hypothyroidism Follicular bronchiolitis (HCC) Other chronic bronchitis documented in this encounter [facility] note* Diagnosis Knee injury, right, initial encounter- Primary Controlled type 2 diabetes mellitus without complication, unspecified jail insulin use status Essential hypertension Unspecified essential hypertension Acquired hypothyroidism Unspecified hypothyroidism Controlled type 2 diabetes mellitus without complication, unspecified jail insulin use status- Primary Essential hypertension Unspecified essential hypertension Acquired hypothyroidism Unspecified hypothyroidism Cough Bronchitis Bronchitis, not specified as acute or chronic Controlled type 2 diabetes mellitus without complication, unspecified whether jail insulin use (HCC)- Primary documented in this encounter [facility] note* Diagnosis Knee injury, right, initial encounter- Primary Controlled type 2 diabetes mellitus without complication, unspecified [employer] insulin use status Essential hypertension Unspecified essential hypertension Acquired hypothyroidism Unspecified hypothyroidism Controlled type 2 diabetes mellitus without complication, unspecified [employer] insulin use status- Primary Essential hypertension Unspecified essential hypertension Acquired hypothyroidism Unspecified hypothyroidism Cough Bronchitis Bronchitis, not specified as acute or chronic Tenderness of right hip Pain in joint, pelvic region and thigh Right thigh pain Pain in limb Right ankle instability Other joint derangement, not elsewhere classified, ankle and foot [facility]* Diagnosis Knee injury, right, initial encounter- Primary Controlled type 2 diabetes mellitus without complication, unspecified [employer] insulin use status Essential hypertension Unspecified essential hypertension Acquired hypothyroidism Unspecified hypothyroidism Controlled type 2 diabetes mellitus without complication, unspecified [employer] insulin use status- Primary Essential hypertension Unspecified essential hypertension Acquired hypothyroidism Unspecified hypothyroidism Cough Bronchitis Bronchitis, not specified as acute or chronic Follicular bronchiolitis (HCC) Other chronic bronchitis documented in this encounter [facility] note* Diagnosis Knee injury, right, initial encounter- Primary Controlled type 2 diabetes mellitus without complication, unspecified [employer] insulin use status Essential hypertension Unspecified essential hypertension Acquired hypothyroidism Unspecified hypothyroidism Controlled type 2 diabetes mellitus without complication, unspecified [employer] insulin use status- Primary Essential hypertension Unspecified essential hypertension Acquired hypothyroidism Unspecified hypothyroidism Cough Bronchitis Bronchitis, not specified as acute or chronic Acute cough [facility] Diagnosis Knee injury, right, initial encounter- Primary Controlled type 2 diabetes mellitus without complication, unspecified jail insulin use status Essential hypertension Unspecified essential hypertension Acquired hypothyroidism Unspecified hypothyroidism Controlled type 2 diabetes mellitus without complication, unspecified jail insulin use status- Primary Essential hypertension Unspecified essential hypertension Acquired hypothyroidism Unspecified hypothyroidism Cough Bronchitis Bronchitis, not specified as acute or chronic Chronic cough- Primary Cough Follicular bronchiolitis (HCC) Other chronic bronchitis Pulmonary air trapping PND (post-nasal drip) Postnasal drip Cardiac murmur Undiagnosed cardiac murmurs documented in this encounter [facility] note* Diagnosis Knee injury, right, initial encounter- Primary Controlled type 2 diabetes mellitus without complication, unspecified [employer] insulin use status Essential hypertension Unspecified essential hypertension Acquired hypothyroidism Unspecified hypothyroidism Controlled type 2 diabetes mellitus without complication, unspecified [employer] insulin use status- Primary Essential hypertension Unspecified essential hypertension Acquired hypothyroidism Unspecified hypothyroidism Cough Bronchitis Bronchitis, not specified as acute or chronic Controlled type 2 diabetes mellitus without complication, 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)- Primary Essential hypertension Unspecified essential hypertension Hyperlipidemia, unspecified hyperlipidemia type Acquired hypothyroidism Unspecified hypothyroidism Medication management Encounter for long-term (current) use of other medications documented in this encounter [facility] note* Diagnosis Knee injury, right, initial encounter- Primary Controlled type 2 diabetes mellitus without complication, unspecified jail insulin use status Essential hypertension Unspecified essential hypertension Acquired hypothyroidism Unspecified hypothyroidism Controlled type 2 diabetes mellitus without complication, unspecified [employer] insulin use status- Primary Essential hypertension Unspecified essential hypertension Acquired hypothyroidism Unspecified hypothyroidism Cough Bronchitis Bronchitis, not specified as acute or chronic Acquired hypothyroidism- Primary Unspecified hypothyroidism Medication management Encounter for long-term (current) use of other medications documented in this encounter [facility] note* Diagnosis Knee injury, right, initial encounter- Primary Controlled type 2 diabetes mellitus without complication, unspecified jail insulin use status Essential hypertension Unspecified essential hypertension Acquired hypothyroidism Unspecified hypothyroidism Controlled type 2 diabetes mellitus without complication, unspecified jail insulin use status- Primary Essential hypertension Unspecified essential hypertension Acquired hypothyroidism Unspecified hypothyroidism Cough Bronchitis Bronchitis, not specified as acute or chronic Encounter for screening mammogram for breast cancer- Primary documented in this encounter [facility] note* Diagnosis Knee injury, right, initial encounter- Primary Controlled type 2 diabetes mellitus without complication, unspecified jail insulin use status Essential hypertension Unspecified essential hypertension Acquired hypothyroidism Unspecified hypothyroidism Controlled type 2 diabetes mellitus without complication, unspecified [employer] insulin use status- Primary Essential hypertension Unspecified essential hypertension Acquired hypothyroidism Unspecified hypothyroidism Cough Bronchitis Bronchitis, not specified as acute or chronic Encounter for screening mammogram for breast cancer documented in this encounter [facility] note* Diagnosis Knee injury, right, initial encounter- Primary Controlled type 2 diabetes mellitus without complication, unspecified [employer] insulin use status Essential hypertension Unspecified essential hypertension Acquired hypothyroidism Unspecified hypothyroidism Controlled type 2 diabetes mellitus without complication, unspecified [employer] insulin use status- Primary Essential hypertension Unspecified essential hypertension Acquired hypothyroidism Unspecified hypothyroidism Cough Bronchitis Bronchitis, not specified as acute or chronic Controlled type 2 diabetes mellitus without complication, 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)- Primary Essential hypertension Unspecified essential hypertension Grief Adjustment disorder with depressed mood Acquired hypothyroidism Unspecified hypothyroidism documented in this encounter [facility] note* Diagnosis Knee injury, right, initial encounter- Primary Controlled type 2 diabetes mellitus without complication, unspecified [employer] insulin use status Essential hypertension Unspecified essential hypertension Acquired hypothyroidism Unspecified hypothyroidism Controlled type 2 diabetes mellitus without complication, unspecified jail insulin use status- Primary Essential hypertension Unspecified essential hypertension Acquired hypothyroidism Unspecified hypothyroidism Cough Bronchitis Bronchitis, not specified as acute or chronic Chronic cough- Primary Cough Follicular bronchiolitis (HCC) Other chronic bronchitis Pulmonary air trapping Post-nasal drip Postnasal drip Gastroesophageal reflux disease without esophagitis Esophageal reflux [facility]* Diagnosis Knee injury, right, initial encounter- Primary Controlled type 2 diabetes mellitus without complication, unspecified [employer] insulin use status Essential hypertension Unspecified essential hypertension Acquired hypothyroidism Unspecified hypothyroidism Controlled type 2 diabetes mellitus without complication, unspecified [employer] insulin use status- Primary Essential hypertension Unspecified essential hypertension Acquired hypothyroidism Unspecified hypothyroidism Cough Bronchitis Bronchitis, not specified as acute or chronic Essential hypertension- Primary Unspecified essential hypertension Controlled type 2 diabetes mellitus without complication, 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) Muscle cramps Cramp of limb Insomnia, unspecified type Anxiety and depression Dysthymic disorder Grief Adjustment disorder with depressed mood Acquired hypothyroidism Unspecified hypothyroidism Gastroesophageal reflux disease without esophagitis Esophageal reflux Hyperlipidemia, unspecified hyperlipidemia type Abnormal color of lips Diseases of lips [facility]* Diagnosis Knee injury, right, initial encounter- Primary Controlled type 2 diabetes mellitus without complication, unspecified [employer] insulin use status Essential hypertension Unspecified essential hypertension Acquired hypothyroidism Unspecified hypothyroidism Controlled type 2 diabetes mellitus without complication, unspecified [employer] insulin use status- Primary Essential hypertension Unspecified essential hypertension Acquired hypothyroidism Unspecified hypothyroidism Cough Bronchitis Bronchitis, not specified as acute or chronic Hypomagnesemia- Primary Disorders of magnesium metabolism [facility]* Diagnosis Knee injury, right, initial encounter- Primary Controlled type 2 diabetes mellitus without complication, unspecified jail insulin use status Essential hypertension Unspecified essential hypertension Acquired hypothyroidism Unspecified hypothyroidism Controlled type 2 diabetes mellitus without complication, unspecified [employer] insulin use status- Primary Essential hypertension Unspecified essential hypertension Acquired hypothyroidism Unspecified hypothyroidism Cough Bronchitis Bronchitis, not specified as acute or chronic Muscle cramps- Primary Cramp of limb Hypomagnesemia Disorders of magnesium metabolism Gastroesophageal reflux disease without esophagitis Esophageal reflux Acute cough Insomnia, unspecified type documented in this encounter [facility] note* Diagnosis Knee injury, right, initial encounter- Primary Controlled type 2 diabetes mellitus without complication, unspecified jail insulin use status Essential hypertension Unspecified essential hypertension Acquired hypothyroidism Unspecified hypothyroidism Controlled type 2 diabetes mellitus without complication, unspecified jail insulin use status- Primary Essential hypertension Unspecified [...] 2 diabetes mellitus without complication, 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) documented in this encounter [facility] for referral (narrative)* Outpatient Procedure (Routine) - Authorized Specialty Diagnoses / Procedures Referred By Gilbert wood Referred To [facility] Diagnoses Follicular bronchiolitis (HCC) Procedures SPIROMETRY WITH DILATOR IF OBSTRUCTED BRNCDILAT RSPSE SPMTRY PRE&POST-BRNCDILAT Pamela Meade MD [address] [place] [address] Respiratory [place] [address] [place] [address] Referral ID Status Reason Start Date Expiration Date Visits Requested Visits Authorized [id number] Authorized Auto-Generat ed Referral 05/09/2022 06/08/2023 1 1 [facility] for referral (narrative)* Diagnostic Procedure Only (Routine) - Closed Specialty Diagnoses / Procedures Referred By Gilbert wood Referred To Contact [facility] Diagnoses Encounter for screening mammogram for malignant neoplasm of breast Procedures [facility]ADISON SCREENING SCREENING MAMMOGRAPHY BI 2-VIEW BREAST INC Griselda Andrea APRN.CNP [address] [place] [address] [facility] [address] [place] [address] Referral ID Status Reason Start Date Expiration Date V isits Requested Visits Authorized [id number] Closed Auto-Generate d Referral 07/28/2022 08/27/2023 1 1 [facility] for referral (narrative)* Diagnostic Procedure Only (Routine) - Closed Specialty Diagnoses / Procedures Referred By Contac t Referred To Contact [facility] Diagnoses Encounter for screening mammogram for malignant neoplasm of breast Procedures MADISON SCREENING SCREENING MAMMOGRAPHY BI 2-VIEW BREAST INC CAD Griselda Lema APRN.OVERCOILER [address] [place] [address] [facility] [address] [place] [address] Referral ID Status Reason Start Date Expiration Date V isits Requested Visits Authorized [id number] Closed Auto-Generate d Referral 07/28/2022 08/27/2023 1 1 [facility] for referral (narrative)* Diagnostic Procedure Only (Routine) - Pending Review Specialty Diagnoses / Procedures Referred By Contac t Referred To Contact [facility] Diagnoses Encounter for screening mammogram for malignant neoplasm of breast Procedures MADISON SCREENING SCREENING MAMMOGRAPHY BI 2-VIEW BREAST INC CAD Bouchra Lema APRN.OVERCOILER [address] [place] [address] [facility] [address] [place] [address] Referral ID Status Reason Start Date Expiration Date Visits Requested Visits Authorized [id number] Pending Review Auto-Generat ed Referral 08/30/2024 1 1 [facility] for referral (narrative)* Diagnostic Procedure Only (Routine) - Closed Specialty Diagnoses / Procedures Referred By Contac t Referred To Contact XR IMAGING Diagnoses Right ankle instability Procedures XR ANKLE GENERAL 3V AP/LAT/OBL RIGHT RADEX ANKLE COMPLETE MINIMUM 3 VIEWS Griselda Lema APRN.OVERCOILER [address] [place] [address] Xr Imaging [facility] Referral ID Status Reason Start Date Expiration Date V isits Requested Visits Authorized [id number] Closed Auto-Generate d Referral 04/10/2023 05/09/2024 1 1 * Diagnostic Procedure Only (Routine) - Closed Specialty Diagnoses / Procedures Referred By Zainabac t Referred To Contact XR IMAGING Diagnoses Tenderness of right hip Right thigh pain Procedures XR HIP GENERAL 3V PELV/AP/LAT RIGHT RADEX HIP UNILATERAL WITH PELVIS 2-3 VIEWS Griselda Lema APRN.CNP [address] [place] [address] [place] [id number] Referral ID Status Reason Start Date Expiration Date V isits Requested Visits Authorized [id number] Closed Auto-Generate d Referral 04/10/2023 05/09/2024 1 1 [facility] for referral (narrative)* Diagnostic Procedure Only (Routine) - Authorized Specialty Diagnoses / Procedures Referred By Gilbert t Referred To Contact [facility] Diagnoses Encounter for screening mammogram for breast cancer Procedures MADISON SCREENING SCREENING MAMMOGRAPHY BI 2-VIEW BREAST INC Darin Bazzi MD [address] [id number] [facility] [address] [place] [address] Referral ID Status Reason Start Date Expiration Date Visits Requested Visits Authorized [id number] Authorized Auto-Generat ed Referral 09/05/2025 1 1 [facility] for referral (narrative)* Diagnostic Procedure Only (Routine) - Closed Specialty Diagnoses / Procedures Referred By Contac t Referred To Contact [facility] Diagnoses Encounter for screening mammogram for breast cancer Procedures MADISON SCREENING SCREENING MAMMOGRAPHY BI 2-VIEW BREAST INC Darin Bazzi MD [address] [place] [address] [facility] [address] [place] [address] Referral ID Status Reason Start Date Expiration Date V isits Requested Visits Authorized [id number] Closed Auto-Generate d Referral 08/06/2024 09/05/2025 1 1 [facility] for visit Narrative* Diagnostic Procedure Only (Routine) - Closed Specialty Diagnoses / Procedures Referred By Contac t Referred To Contact [facility] Diagnoses Encounter for screening mammogram for malignant neoplasm of breast Procedures MADISON SCREENING SCREENING MAMMOGRAPHY BI 2-VIEW BREAST INC CAD Griselda Lema, NAREN.OVERCOILER [address] [place] [address] [facility] [address] [place] [address] Referral ID Status Reason Start Date Expiration Date V isits Requested Visits Authorized [id number] Closed Auto-Generate d Referral 07/28/2022 08/27/2023 1 1 [facility] for visit Narrative* Diagnostic Procedure Only (Routine) - Closed Specialty Diagnoses / Procedures Referred By Conthalley t Referred To Contact XR IMAGING Diagnoses Right ankle instability Procedures XR ANKLE GENERAL 3V AP/LAT/OBL RIGHT RADEX ANKLE COMPLETE MINIMUM 3 VIEWS Griselda Lema APRN.OVERCOILER [address] [place] [address] Xr Imaging [facility] Referral ID Status Reason Start Date Expiration Date V isits Requested Visits Authorized [id number] Closed Auto-Generate d Referral 04/10/2023 05/09/2024 1 1 [facility] for visit Narrative* Diagnostic Procedure Only (Routine) - Closed Specialty Diagnoses / Procedures Referred By Contac t Referred To Contact [facility] Diagnoses Encounter for screening mammogram for breast cancer Procedures MADISON SCREENING SCREENING MAMMOGRAPHY BI 2-VIEW BREAST INC CAD Darin Alonzo MD [address] [place] [address] [facility] [address] [place] [address] Referral ID Status Reason Start Date Expiration Date V isits Requested Visits Authorized [id number] Closed Auto-Generate d Referral 08/06/2024 09/05/2025 1 1 [facility] Summary Purpose Family History No Family History Records Found Relationship Condition Age at Onset Recorded Date/T farhad Not Specified Diabetes mellitus Unknown Hypertension Unknown Advance Directives No Advanced Directives Records FoundDocuments on File Type Date 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 Advance Directive(s) 10/27/2017 10:28 AM Advance Directive(s) 10/19/2017 8:19 AM Advance Directive(s) 06/06/2007 12:00 AM Advance Directive Response Recorded Date/ Time Living Will Yes March 10, 2022 3:42pm Power of Adhesive Primer Yes March 10 3:42pm Name of Medical Power of Adhesive Primer Reymundo March 10, 2022 3:42pm Advance Directive Response Recorded Date/ Time Name of Medical Power of Adhesive Primer Ambrocio Leija March 10, 2022 5:11pm Living Will Yes March 10, 2022 5:11pm Power of Adhesive Primer Yes March 10 5:11pm Documents on File Type Date Recorded 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 Advance Directive(s) 06/06/2007 Documents on File Type Date Recorded 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 Advance Directive(s) 06/06/2007 Advance Directive Response Recorded Date/ Time Living Will Yes March 09, 2023 9:57am Power of Adhesive Primer Yes March 09 9:57am Chief Complaint and [...] Referral Specialty Diagnoses / Procedures Referred By Contac t Referred To Contact Orthopedics Diagnoses Tenderness of right hip Right thigh pain Right ankle instability Procedures CONSULT TO ORTHOPAEDICS OFFICE/OUTPATIENT [facility] MDM 60-74 MINUTES Griselda Lema APRN.OVERCOILER [address] [place] [address] Referral ID Status Reason Start Date Expiration Date Visits Requested Visits Authorized [id number] Authorized PCP Requested Referral 04/10/2023 04/09/2024 1 1 Specialty Diagnoses / Procedures Referred By Contac t Referred To Contact XR IMAGING Diagnoses Right ankle instability Procedures XR ANKLE GENERAL 3V AP/LAT/OBL RIGHT RADEX ANKLE COMPLETE MINIMUM 3 VIEWS Griselda Lema APRN.OVERCOILER [address] [place] [address] Xr Imaging Referral ID Status Reason Start Date Expiration Date V isits Requested Visits Authorized [id number] Closed Auto-Generate d Referral 04/10/2023 05/09/2024 1 1 Specialty Diagnoses / Procedures Referred By Contac t Referred To Contact XR IMAGING Diagnoses Tenderness of right hip Right thigh pain Procedures XR HIP GENERAL 3V PELV/AP/LAT RIGHT RADEX HIP UNILATERAL WITH PELVIS 2-3 VIEWS Griselda Lema APRN.OVERCOILER [address] [place] [address] Xr Imaging Referral ID Status Reason Start Date Expiration Date V isits Requested Visits Authorized [id number] Closed Auto-Generate d Referral 04/10/2023 05/09/2024 1 1 Specialty Diagnoses / Procedures Referred By Contac t Referred To Contact CT IMAGING Diagnoses 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) Chronic cough Procedures CT CHEST WO IVCON DIAGNOSTIC COMPUTED TOMOGRAPHY THORAX W/O Pamela Riddle MD [address] [place] [address] [place] [address] Referral ID Status Reason Start Date Expiration Date Visits Requested Visits Authorized [id number] Authorized Auto-Generat ed Referral 11/28/2023 12/27/2024 1 1 Additional Source Comments INFORMATION SOURCE (unrecogn ized section and content) DATE CREATED AUTHOR 03/15/2018 [facility] DATE CREATED AUTHOR AUTHOR'S ORGANIZ ATION 11/07/2024 [facility] DATE CREATED AUTHOR AUTHOR'S ORGANIZ ATION 04/13/2025 [facility] Source Comments (unrecognize d section and content) In the event this informatio n is protected by the Federal Confidentiality of Alcohol and Drug Abuse Patient Records regulations: The Federal rules restrict any use of the information to criminally investigate or prosecute any alcohol or drug abuse patient.[facility]In the event this information is protected by the Federal Confidentiality of Alcohol and Drug Abuse Patient Records regulations: The Federal rules restrict any use of the information to criminally investigate or prosecute any alcohol or drug abuse patient.[facility] HospitalIn the event this information is protected by the Federal Confidentiality of Alcohol and Drug Abuse Patient Records regulations: The Federal rules restrict any use of the information to criminally investigate or prosecute any alcohol or drug abuse patient.[facility] HospitalIn the event this information is protected by the Federal Confidentiality of Alcohol and Drug Abuse Patient Records regulations: The Federal rules restrict any use of the information to criminally investigate or prosecute any alcohol or drug abuse patient.[facility] HospitalIn the event this information is protected by the Federal Confidentiality of Alcohol and Drug Abuse Patient Records regulations: The Federal rules restrict any use of the information to criminally investigate or prosecute any alcohol or drug abuse patient.[facility] HospitalIn the event this information is protected by the Federal Confidentiality of Alcohol and Drug Abuse Patient Records regulations: The Federal rules restrict any use of the information to criminally investigate or prosecute any alcohol or drug abuse patient.[facility] HospitalIn the event this information is protected by the Federal Confidentiality of Alcohol and Drug Abuse Patient Records regulations: The Federal rules restrict any use of the information to criminally investigate or prosecute any alcohol or drug abuse patient.[facility] HospitalIn the event this information is protected by the Federal Confidentiality of Alcohol and Drug Abuse Patient Records regulations: The Federal rules restrict any use of the information to criminally investigate or prosecute any alcohol or drug abuse patient.[facility] HospitalIn the event this information is protected by the Federal Confidentiality of Alcohol and Drug Abuse Patient Records regulations: The Federal rules restrict any use of the information to criminally investigate or prosecute any alcohol or drug abuse patient.[facility] HospitalIn the event this information is protected by the Federal Confidentiality of Alcohol and Drug Abuse Patient Records regulations: The Federal rules restrict any use of the information to criminally investigate or prosecute any alcohol or drug abuse patient.[facility] HospitalIn the event this information is protected by the Federal Confidentiality of Alcohol and Drug Abuse Patient Records regulations: The Federal rules restrict any use of the information to criminally investigate or prosecute any alcohol or drug abuse patient.[facility] HospitalIn the event this information is protected by the Federal Confidentiality of Alcohol and Drug Abuse Patient Records regulations: The Federal rules restrict any use of the information to criminally investigate or prosecute any alcohol or drug abuse patient.[facility] HospitalIn the event this information is protected by the Federal Confidentiality of Alcohol and Drug Abuse Patient Records regulations: The Federal rules restrict any use of the information to criminally investigate or prosecute any alcohol or drug abuse patient.[facility] HospitalIn the event this information is protected by the Federal Confidentiality of Alcohol and Drug Abuse Patient Records regulations: The Federal rules restrict any use of the information to criminally investigate or prosecute any alcohol or drug abuse patient.[facility] HospitalIn the event this information is protected by the Federal Confidentiality of Alcohol and Drug Abuse Patient Records regulations: The Federal rules restrict any use of the information to criminally investigate or prosecute any alcohol or drug abuse patient.[facility] HospitalIn the event this information is protected by the Federal Confidentiality of Alcohol and Drug Abuse Patient Records regulations: The Federal rules restrict any use of the information to criminally investigate or prosecute any alcohol or drug abuse patient.[facility] HospitalIn the event this information is protected by the Federal Confidentiality of Alcohol and Drug Abuse Patient Records regulations: The Federal rules restrict any use of the information to criminally investigate or prosecute any alcohol or drug abuse patient.[facility] HospitalIn the event this information is protected by the Federal Confidentiality of Alcohol and Drug Abuse Patient Records regulations: The Federal rules restrict any use of the information to criminally investigate or prosecute any alcohol or drug abuse patient.[facility] HospitalIn the event this information is protected by the Federal Confidentiality of Alcohol and Drug Abuse Patient Records regulations: The Federal rules restrict any use of the information to criminally investigate or prosecute any alcohol or drug abuse patient.[facility] HospitalIn the event this information is protected by the Federal Confidentiality of Alcohol and Drug Abuse Patient Records regulations: The Federal rules restrict any use of the information to criminally investigate or prosecute any alcohol or drug abuse patient.[facility] HospitalIn the event this information is protected by the Federal Confidentiality of Alcohol and Drug Abuse Patient Records regulations: The Federal rules restrict any use of the information to criminally investigate or prosecute any alcohol or drug abuse patient.[facility] HospitalIn the event this information is protected by the Federal Confidentiality of Alcohol and Drug Abuse Patient Records regulations: The Federal rules restrict any use of the information to criminally investigate or prosecute any alcohol or drug abuse patient.[facility] HospitalIn the event this information is protected by the Federal Confidentiality of Alcohol and Drug Abuse Patient Records regulations: The Federal rules restrict any use of the information to criminally investigate or prosecute any alcohol or drug abuse patient.[facility] HospitalIn the event this information is protected by the Federal Confidentiality of Alcohol and Drug Abuse Patient Records regulations: The Federal rules restrict any use of the information to criminally investigate or prosecute any alcohol or drug abuse patient.[facility] HospitalIn the event this information is protected by the Federal Confidentiality of Alcohol and Drug Abuse Patient Records regulations: The Federal rules restrict any use of the information to criminally investigate or prosecute any alcohol or drug abuse patient.[facility] HospitalIn the event this information is protected by the Federal Confidentiality of Alcohol and Drug Abuse Patient Records regulations: The Federal rules restrict any use of the information to criminally investigate or prosecute any alcohol or drug abuse patient.[facility] HospitalIn the event this information is protected by the Federal Confidentiality of Alcohol and Drug Abuse Patient Records regulations: The Federal rules restrict any use of the information to criminally investigate or prosecute any alcohol or drug abuse patient.[facility] HospitalIn the event this information is protected by the Federal Confidentiality of Alcohol and Drug Abuse Patient Records regulations: The Federal rules restrict any use of the information to criminally investigate or prosecute any alcohol or drug abuse patient.[facility] HospitalIn the event this information is protected by the Federal Confidentiality of Alcohol and Drug Abuse Patient Records regulations: The Federal rules restrict any use of the information to criminally investigate or prosecute any alcohol or drug abuse patient.[facility] HospitalIn the event this information is protected by the Federal Confidentiality of Alcohol and Drug Abuse Patient Records regulations: The Federal rules restrict any use of the information to criminally investigate or prosecute any alcohol or drug abuse patient.[facility] HospitalIn the event this information is protected by the Federal Confidentiality of Alcohol and Drug Abuse Patient Records regulations: The Federal rules restrict any use of the information to criminally investigate or prosecute any alcohol or drug abuse patient.[facility] HospitalIn the event this information is protected by the Federal Confidentiality of Alcohol and Drug Abuse Patient Records regulations: The Federal rules restrict any use of the information to criminally investigate or prosecute any alcohol or drug abuse patient.[facility] HospitalIn the event this information is protected by the Federal Confidentiality of Alcohol and Drug Abuse Patient Records regulations: The Federal rules restrict any use of the information to criminally investigate or prosecute any alcohol or drug abuse patient.[facility] HospitalIn the event this information is protected by the Federal Confidentiality of Alcohol and Drug Abuse Patient Records regulations: The Federal rules restrict any use of the information to criminally investigate or prosecute any alcohol or drug abuse patient.[facility] HospitalIn the event this information is protected by the Federal Confidentiality of Alcohol and Drug Abuse Patient Records regulations: The Federal rules restrict any use of the information to criminally investigate or prosecute any alcohol or drug abuse patient.[facility] HospitalIn the event this information is protected by the Federal Confidentiality of Alcohol and Drug Abuse Patient Records regulations: The Federal rules restrict any use of the information to criminally investigate or prosecute any alcohol or drug abuse patient.[facility] HospitalIn the event this information is protected by the Federal Confidentiality of Alcohol and Drug Abuse Patient Records regulations: The Federal rules restrict any use of the information to criminally investigate or prosecute any alcohol or drug abuse patient.[facility] HospitalIn the event this information is protected by the Federal Confidentiality of Alcohol and Drug Abuse Patient Records regulations: The Federal rules restrict any use of the information to criminally investigate or prosecute any alcohol or drug abuse patient.[facility] HospitalIn the event this information is protected by the Federal Confidentiality of Alcohol and Drug Abuse Patient Records regulations: The Federal rules restrict any use of the information to criminally investigate or prosecute any alcohol or drug abuse patient.[facility] HospitalIn the event this information is protected by the Federal Confidentiality of Alcohol and Drug Abuse Patient Records regulations: The Federal rules restrict any use of the information to criminally investigate or prosecute any alcohol or drug abuse patient.[facility] HospitalIn the event this information is protected by the Federal Confidentiality of Alcohol and Drug Abuse Patient Records regulations: The Federal rules restrict any use of the information to criminally investigate or prosecute any alcohol or drug abuse patient.[facility] HospitalIn the event this information is protected by the Federal Confidentiality of Alcohol and Drug Abuse Patient Records regulations: The Federal rules restrict any use of the information to criminally investigate or prosecute any alcohol or drug abuse patient.[facility] HospitalIn the event this information is protected by the Federal Confidentiality of Alcohol and Drug Abuse Patient Records regulations: The Federal rules restrict any use of the information to criminally investigate or prosecute any alcohol or drug abuse patient.[facility] HospitalIn the event this information is protected by the Federal Confidentiality of Alcohol and Drug Abuse Patient Records regulations: The Federal rules restrict any use of the information to criminally investigate or prosecute any alcohol or drug abuse patient.[facility] HospitalIn the event this information is protected by the Federal Confidentiality of Alcohol and Drug Abuse Patient Records regulations: The Federal rules restrict any use of the information to criminally investigate or prosecute any alcohol or drug abuse patient.[facility] HospitalIn the event this information is protected by the Federal Confidentiality of Alcohol and Drug Abuse Patient Records regulations: The Federal rules restrict any use of the information to criminally investigate or prosecute any alcohol or drug abuse patient.[facility] HospitalIn the event this information is protected by the Federal Confidentiality of Alcohol and Drug Abuse Patient Records regulations: The Federal rules restrict any use of the information to criminally investigate or prosecute any alcohol or drug abuse patient.[facility] HospitalIn the event this information is protected by the Federal Confidentiality of Alcohol and Drug Abuse Patient Records regulations: The Federal rules restrict any use of the information to criminally investigate or prosecute any alcohol or drug abuse patient.[facility] HospitalIn the event this information is protected by the Federal Confidentiality of Alcohol and Drug Abuse Patient Records regulations: The Federal rules restrict any use of the information to criminally investigate or prosecute any alcohol or drug abuse patient.[facility] HospitalIn the event this information is protected by the Federal Confidentiality of Alcohol and Drug Abuse Patient Records regulations: The Federal rules restrict any use of the information to criminally investigate or prosecute any alcohol or drug abuse patient.[facility] HospitalIn the event this information is protected by the Federal Confidentiality of Alcohol and Drug Abuse Patient Records regulations: The Federal rules restrict any use of the information to criminally investigate or prosecute any alcohol or drug abuse patient.[facility] HospitalIn the event this information is protected by the Federal Confidentiality of Alcohol and Drug Abuse Patient Records regulations: The Federal rules restrict any use of the information to criminally investigate or prosecute any alcohol or drug abuse patient.[facility] HospitalIn the event this information is protected by the Federal Confidentiality of Alcohol and Drug Abuse Patient Records regulations: The Federal rules restrict any use of the information to criminally investigate or prosecute any alcohol or drug abuse patient.[facility] HospitalIn the event this information is protected by the Federal Confidentiality of Alcohol and Drug Abuse Patient Records regulations: The Federal rules restrict any use of the information to criminally investigate or prosecute any alcohol or drug abuse patient.[facility] HospitalIn the event this information is protected by the Federal Confidentiality of Alcohol and Drug Abuse Patient Records regulations: The Federal rules restrict any use of the information to criminally investigate or prosecute any alcohol or drug abuse patient.[facility] HospitalIn the event this information is protected by the Federal Confidentiality of Alcohol and Drug Abuse Patient Records regulations: The Federal rules restrict any use of the information to criminally investigate or prosecute any alcohol or drug abuse patient.[facility] HospitalIn the event this information is protected by the Federal Confidentiality of Alcohol and Drug Abuse Patient Records regulations: The Federal rules restrict any use of the information to criminally investigate or prosecute any alcohol or drug abuse patient.[facility] HospitalIn the event this information is protected by the Federal Confidentiality of Alcohol and Drug Abuse Patient Records regulations: The Federal rules restrict any use of the information to criminally investigate or prosecute any alcohol or drug abuse patient.[facility] HospitalIn the event this information is protected by the Federal Confidentiality of Alcohol and Drug Abuse Patient Records regulations: The Federal rules restrict any use of the information to criminally investigate or prosecute any alcohol or drug abuse patient.[facility] HospitalIn the event this information is protected by the Federal Confidentiality of Alcohol and Drug Abuse Patient Records regulations: The Federal rules restrict any use of the information to criminally investigate or prosecute any alcohol or drug abuse patient.[facility] HospitalIn the event this information is protected by the Federal Confidentiality of Alcohol and Drug Abuse Patient Records regulations: The Federal rules restrict any use of the information to criminally investigate or prosecute any alcohol or drug abuse patient.[facility] HospitalIn the event this information is protected by the Federal Confidentiality of Alcohol and Drug Abuse Patient Records regulations: The Federal rules restrict any use of the information to criminally investigate or prosecute any alcohol or drug abuse patient.[facility] HospitalIn the event this information is protected by the Federal Confidentiality of Alcohol and Drug Abuse Patient Records regulations: The Federal rules restrict any use of the information to criminally investigate or prosecute any alcohol or drug abuse patient.[facility] HospitalIn the event this information is protected by the Federal Confidentiality of Alcohol and Drug Abuse Patient Records regulations: The Federal rules restrict any use of the information to criminally investigate or prosecute any alcohol or drug abuse patient.[facility] HospitalIn the event this information is protected by the Federal Confidentiality of Alcohol and Drug Abuse Patient Records regulations: The Federal rules restrict any use of the information to criminally investigate or prosecute any alcohol or drug abuse patient.[facility] HospitalIn the event this information is protected by the Federal Confidentiality of Alcohol and Drug Abuse Patient Records regulations: The Federal rules restrict any use of the information to criminally investigate or prosecute any alcohol or drug abuse patient.[facility] HospitalIn the event this information is protected by the Federal Confidentiality of Alcohol and Drug Abuse Patient Records regulations: The Federal rules restrict any use of the information to criminally investigate or prosecute any alcohol or drug abuse patient.[facility] HospitalIn the event this information is protected by the Federal Confidentiality of Alcohol and Drug Abuse Patient Records regulations: The Federal rules restrict any use of the information to criminally investigate or prosecute any alcohol or drug abuse patient.[facility] HospitalIn the event this information is protected by the Federal Confidentiality of Alcohol and Drug Abuse Patient Records regulations: The Federal rules restrict any use of the information to criminally investigate or prosecute any alcohol or drug abuse patient.[facility] HospitalIn the event this information is protected by the Federal Confidentiality of Alcohol and Drug Abuse Patient Records regulations: The Federal rules restrict any use of the information to criminally investigate or prosecute any alcohol or drug abuse patient.[facility] HospitalIn the event this information is protected by the Federal Confidentiality of Alcohol and Drug Abuse Patient Records regulations: The Federal rules restrict any use of the information to criminally investigate or prosecute any alcohol or drug abuse patient.[facility] HospitalIn the event this information is protected by the Federal Confidentiality of Alcohol and Drug Abuse Patient Records regulations: The Federal rules restrict any use of the information to criminally investigate or prosecute any alcohol or drug abuse patient.[facility] HospitalIn the event this information is protected by the Federal Confidentiality of Alcohol and Drug Abuse Patient Records regulations: The Federal rules restrict any use of the information to criminally investigate or prosecute any alcohol or drug abuse patient.[facility] HospitalIn the event this information is protected by the Federal Confidentiality of Alcohol and Drug Abuse Patient Records regulations: The Federal rules restrict any use of the information to criminally investigate or prosecute any alcohol or drug abuse patient.[facility] HospitalIn the event this information is protected by the Federal Confidentiality of Alcohol and Drug Abuse Patient Records regulations: The Federal rules restrict any use of the information to criminally investigate or prosecute any alcohol or drug abuse patient.[facility] HospitalIn the event this information is protected by the Federal Confidentiality of Alcohol and Drug Abuse Patient Records regulations: The Federal rules restrict any use of the information to criminally investigate or prosecute any alcohol or drug abuse patient.[facility] HospitalIn the event this information is protected by the Federal Confidentiality of Alcohol and Drug Abuse Patient Records regulations: The Federal rules restrict any use of the information to criminally investigate or prosecute any alcohol or drug abuse patient.[facility] HospitalIn the event this information is protected by the Federal Confidentiality of Alcohol and Drug Abuse Patient Records regulations: The Federal rules restrict any use of the information to criminally investigate or prosecute any alcohol or drug abuse patient.[facility] HospitalIn the event this information is protected by the Federal Confidentiality of Alcohol and Drug Abuse Patient Records regulations: The Federal rules restrict any use of the information to criminally investigate or prosecute any alcohol or drug abuse patient.[facility] HospitalIn the event this information is protected by the Federal Confidentiality of Alcohol and Drug Abuse Patient Records regulations: The Federal rules restrict any use of the information to criminally investigate or prosecute any alcohol or drug abuse patient.[facility] HospitalIn the event this information is protected by the Federal Confidentiality of Alcohol and Drug Abuse Patient Records regulations: The Federal rules restrict any use of the information to criminally investigate or prosecute any alcohol or drug abuse patient.[facility] HospitalIn the event this information is protected by the Federal Confidentiality of Alcohol and Drug Abuse Patient Records regulations: The Federal rules restrict any use of the information to criminally investigate or prosecute any alcohol or drug abuse patient.[facility] HospitalIn the event this information is protected by the Federal Confidentiality of Alcohol and Drug Abuse Patient Records regulations: The Federal rules restrict any use of the information to criminally investigate or prosecute any alcohol or drug abuse patient.[facility] HospitalIn the event this information is protected by the Federal Confidentiality of Alcohol and Drug Abuse Patient Records regulations: The Federal rules restrict any use of the information to criminally investigate or prosecute any alcohol or drug abuse patient.[facility] HospitalIn the event this information is protected by the Federal Confidentiality of Alcohol and Drug Abuse Patient Records regulations: The Federal rules restrict any use of the information to criminally investigate or prosecute any alcohol or drug abuse patient.[facility] HospitalIn the event this information is protected by the Federal Confidentiality of Alcohol and Drug Abuse Patient Records regulations: The Federal rules restrict any use of the information to criminally investigate or prosecute any alcohol or drug abuse patient.[facility] HospitalIn the event this information is protected by the Federal Confidentiality of Alcohol and Drug Abuse Patient Records regulations: The Federal rules restrict any use of the information to criminally investigate or prosecute any alcohol or drug abuse patient.[facility] HospitalIn the event this information is protected by the Federal Confidentiality of Alcohol and Drug Abuse Patient Records regulations: The Federal rules restrict any use of the information to criminally investigate or prosecute any alcohol or drug abuse patient.[facility] HospitalIn the event this information is protected by the Federal Confidentiality of Alcohol and Drug Abuse Patient Records regulations: The Federal rules restrict any use of the information to criminally investigate or prosecute any alcohol or drug abuse patient.[facility] HospitalIn the event this information is protected by the Federal Confidentiality of Alcohol and Drug Abuse Patient Records regulations: The Federal rules restrict any use of the information to criminally investigate or prosecute any alcohol or drug abuse patient.[facility] HospitalIn the event this information is protected by the Federal Confidentiality of Alcohol and Drug Abuse Patient Records regulations: The Federal rules restrict any use of the information to criminally investigate or prosecute any alcohol or drug abuse patient.[facility] HospitalIn the event this information is protected by the Federal Confidentiality of Alcohol and Drug Abuse Patient Records regulations: The Federal rules restrict any use of the information to criminally investigate or prosecute any alcohol or drug abuse patient.[facility] HospitalIn the event this information is protected by the Federal Confidentiality of Alcohol and Drug Abuse Patient Records regulations: The Federal rules restrict any use of the information to criminally investigate or prosecute any alcohol or drug abuse patient.[facility] HospitalIn the event this information is protected by the Federal Confidentiality of Alcohol and Drug Abuse Patient Records regulations: The Federal rules restrict any use of the information to criminally investigate or prosecute any alcohol or drug abuse patient.[facility] HospitalIn the event this information is protected by the Federal Confidentiality of Alcohol and Drug Abuse Patient Records regulations: The Federal rules restrict any use of the information to criminally investigate or prosecute any alcohol or drug abuse patient.[facility] HospitalIn the event this information is protected by the Federal Confidentiality of Alcohol and Drug Abuse Patient Records regulations: The Federal rules restrict any use of the information to criminally investigate or prosecute any alcohol or drug abuse patient.[facility] HospitalIn the event this information is protected by the Federal Confidentiality of Alcohol and Drug Abuse Patient Records regulations: The Federal rules restrict any use of the information to criminally investigate or prosecute any alcohol or drug abuse patient.[facility] HospitalIn the event this information is protected by the Federal Confidentiality of Alcohol and Drug Abuse Patient Records regulations: The Federal rules restrict any use of the information to criminally investigate or prosecute any alcohol or drug abuse patient.[facility] HospitalIn the event this information is protected by the Federal Confidentiality of Alcohol and Drug Abuse Patient Records regulations: The Federal rules restrict any use of the information to criminally investigate or prosecute any alcohol or drug abuse patient.[facility] HospitalIn the event this information is protected by the Federal Confidentiality of Alcohol and Drug Abuse Patient Records regulations: The Federal rules restrict any use of the information to criminally investigate or prosecute any alcohol or drug abuse patient.[facility] HospitalIn the event this information is protected by the Federal Confidentiality of Alcohol and Drug Abuse Patient Records regulations: The Federal rules restrict any use of the information to criminally investigate or prosecute any alcohol or drug abuse patient.[facility] HospitalIn the event this information is protected by the Federal Confidentiality of Alcohol and Drug Abuse Patient Records regulations: The Federal rules restrict any use of the information to criminally investigate or prosecute any alcohol or drug abuse patient.[facility] HospitalIn the event this information is protected by the Federal Confidentiality of Alcohol and Drug Abuse Patient Records regulations: The Federal rules restrict any use of the information to criminally investigate or prosecute any alcohol or drug abuse patient.[facility] Reason for Visit (unrecogniz ed section and content) Reason Onset Date Comments Refill Request 12/10/2021 Reason Comments Headache SARAH, nausea dn dizzy x 1 hour Reason Comments Patient Update Reason Comments Established Patient [facility] hospital follow up-dizziness/nausea Reason Comments Results Reason [...] Spirometry Specialty Diagnoses / Procedures Referred By Gilbert t Referred To [facility] Diagnoses Follicular bronchiolitis (HCC) Procedures SPIROMETRY WITH DILATOR IF OBSTRUCTED BRNCDILAT RSPSE SPMTRY PRE&POST-BRNCDILAT ADMN Pamela Aranda MD [address] [place] [address] Respiratory [place] [address] [place] [address] Referral ID Status Reason Start Date Expiration Date V isits Requested Visits Authorized [id number] Closed Auto-Generate d Referral 05/09/2022 06/08/2023 1 [...] CT Specialty Diagnoses / Procedures Referred By Gilbert t Referred To Contact CT IMAGING Diagnoses 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) Chronic cough Procedures CT CHEST WO IVCON DIAGNOSTIC COMPUTED TOMOGRAPHY THORAX W/O Pamela Riddle MD [address] [place] [address] [place] [address] Referral ID Status Reason Start Date Expiration Date V isits Requested Visits Authorized [id number] Closed Auto-Generate d Referral 11/28/2023 12/27/2024 1 [...] Care Teams (unrecognized sec tion and content) Energy Assistant Relationship Specialty Start Date End Date Darin Alonzo MD [address] [place] [address] PCP - General Internal Medicine 05/18/16 Energy Assistant Relationship Specialty Start Date End Date Darin Alonzo MD [address] [place] [address] PCP - General Internal Medicine 05/18/16 Energy Assistant Relationship Specialty Start Date End Date Darin Alonzo MD [address] [place] [address] PCP - General Internal Medicine 05/18/16 Energy Assistant Relationship Specialty Start Date End Date Darin Alonzo MD [address] [place] [address] PCP - General Internal Medicine 05/18/16 Energy Assistant Relationship Specialty Start Date End Date Darin Alonzo MD [address] [place] [address] PCP - General Internal Medicine 05/18/16 Energy Assistant Relationship Specialty Start Date End Date Darin Alonzo MD [address] [place] [address] PCP - General Internal Medicine 05/18/16 Energy Assistant Relationship Specialty Start Date End Date Darin Alonzo MD [address] [place] [address] PCP - General Internal Medicine 05/18/16 Energy Assistant Relationship Specialty Start Date End Date Darin Alnozo MD [address] [place] [address] PCP - General Internal Medicine 05/18/16 Energy Assistant Relationship Specialty Start Date End Date Darin Alonzo MD [address] [place] [address] PCP - General Internal Medicine 05/18/16 Energy Assistant Relationship Specialty Start Date End Date Darin Alonzo MD [address] [place] [address] PCP - General Internal Medicine 05/18/16 Energy Assistant Relationship Specialty Start Date End Date Darin Alonzo MD [address] [place] [address] PCP - General Internal Medicine 05/18/16 Energy Assistant Relationship Specialty Start Date End Date Darin Alonzo MD [address] [place] [address] PCP - General Internal Medicine 05/18/16 Energy Assistant Relationship Specialty Start Date End Date Darin Alonzo MD [address] [place] [address] PCP - General Internal Medicine 05/18/16 Energy Assistant Relationship Specialty Start Date End Date Darin Alonzo MD [address] [place] [address] PCP - General Internal Medicine 05/18/16 Energy Assistant Relationship Specialty Start Date End Date Darin Alonzo MD [address] [place] [address] PCP - General Internal Medicine 05/18/16 Energy Assistant Relationship Specialty Start Date End Date Darin Alonzo MD [address] [place] [address] PCP - General Internal Medicine 05/18/16 Energy Assistant Relationship Specialty Start Date End Date Darin Alonzo MD [address] [place] [address] PCP - General Internal Medicine 05/18/16 Energy Assistant Relationship Specialty Start Date End Date Darin Alonzo MD [address] [place] [address] PCP - General Internal Medicine 05/18/16 Energy Assistant Relationship Specialty Start Date End Date Darin Alonzo MD [address] [place] [address] PCP - General Internal Medicine 05/18/16 Energy Assistant Relationship Specialty Start Date End Date Darin Alonzo MD [address] [facility], [place] [address] PCP - General Internal Medicine 05/18/16 Team [...] MD Attending Provider, Referring Pro vider Active Energy Assistant Relationship Specialty Start Date End Date Darin Alonzo MD [address] [place] [address] PCP - General Internal Medicine 05/18/16 Energy Assistant Relationship Specialty Start Date End Date Darin Alonzo MD [address] [facility], [place] [address] PCP - General Internal Medicine 05/18/16 Team Status: Inactive Member Role Status Dates Dr. Darin Alonzo MD Primary Care Provider, Referring Provider Active DANIEL Valladares Attending Provider Active Team Status: Inactive Member Role Status Dates Dr. Darin Alonzo MD Primary Care Provider Active MITZI VLEEZC Attending Provider, Referring Provide r Active Energy Assistant Relationship Specialty Start Date End Date Darin Alonzo MD [address] [place] [address] PCP - General Internal Medicine 05/18/16 Energy Assistant Relationship Specialty Start Date End Date Darin Alonzo MD [address] [facility], [place] [address] PCP - General Internal Medicine 05/18/16 Energy Assistant Relationship Specialty Start Date End Date Darin Alonzo MD [address] [place] [address] PCP - General Internal Medicine 05/18/16 Team Status: Inactive Member Role Status Dates Dr. Darin Alonzo MD Primary Care Provider, Referring Provider Active DANIEL Neff Attending Provider Active Energy Assistant Relationship Specialty Start Date End Date Darin Alonzo MD [address] [place] [address] PCP - General Internal Medicine 05/18/16 Energy Assistant Relationship Specialty Start Date End Date Darin Alonzo MD [address] [place] [address] PCP - General Internal Medicine 05/18/16 Energy Assistant Relationship Specialty Start Date End Date Darin Alonzo MD [address] [place] [address] PCP - General Internal Medicine 05/18/16 Energy Assistant Relationship Specialty Start Date End Date Darin Alonzo MD [address] [place] [address] PCP - General Internal Medicine 05/18/16 Energy Assistant Relationship Specialty Start Date End Date Darin Alonzo MD [address] [place] [address] PCP - General Internal Medicine 05/18/16 Energy Assistant Relationship Specialty Start Date End Date Darin Alonzo MD [address] [place] [address] PCP - General Internal Medicine 05/18/16 Energy Assistant Relationship Specialty Start Date End Date Darin Alonzo MD [address] [place] [address] PCP - General Internal Medicine 05/18/16 Energy Assistant Relationship Specialty Start Date End Date Darin Alonzo MD [address] [place] [address] PCP - General Internal Medicine 05/18/16 Energy Assistant Relationship Specialty Start Date End Date Darin Alonzo MD [address] [place] [address] PCP - General Internal Medicine 05/18/16 Energy Assistant Relationship Specialty Start Date End Date Darin Alonzo MD [address] [place] [address] PCP - General Internal Medicine 05/18/16 Energy Assistant Relationship Specialty Start Date End Date Darin Alonzo MD [address] [place] [address] PCP - General Internal Medicine 05/18/16 Energy Assistant Relationship Specialty Start Date End Date Darin Alonzo MD [address] [place] [address] PCP - General Internal Medicine 05/18/16 Energy Assistant Relationship Specialty Start Date End Date Darin Alonzo MD [address] [place] [address] PCP - General Internal Medicine 05/18/16 Energy Assistant Relationship Specialty Start Date End Date Darin Alonzo MD [address] [place] [address] PCP - General Internal Medicine 05/18/16 Energy Assistant Relationship Specialty Start Date End Date Darin Alonzo MD [address] [place] [address] PCP - General Internal Medicine 05/18/16 Energy Assistant Relationship Specialty Start Date End Date Darin Alonzo MD [address] [place] [address] PCP - General Internal Medicine 05/18/16 Energy Assistant Relationship Specialty Start Date End Date Darin Alonzo MD [address] [place] [address] PCP - General Internal Medicine 05/18/16 Energy Assistant Relationship Specialty Start Date End Date Darin Alonzo MD [address] [place] [address] PCP - General Internal Medicine 05/18/16 Energy Assistant Relationship Specialty Start Date End Date Darin Alonzo MD [address] [place] [address] PCP - General Internal Medicine 05/18/16 Energy Assistant Relationship Specialty Start Date End Date Darin Alonzo MD [address] [place] [address] PCP - General Internal Medicine 05/18/16 Arturo Winter PA-C [address] [place] [address] Labor Relations Teacher Family Medicine 08/18/24 Griselda Lema APRN.CNP [address] [place] [address] Labor Relations Teacher Internal Medicine 08/18/24 Lorene Mendez PA-C [address] [place] [address] Labor Relations Teacher Family [facility] 08/18/24 Energy Assistant Relationship Specialty Start Date End Date Darin Alonzo MD [address] [place] [address] PCP - General Internal Medicine 05/18/16 Arturo Winter PA-C [address] [place] [address] Labor Relations Teacher Family Medicine 08/18/24 Griselda Lema APRN.OVERCOILER [address] [place] [address] Labor Relations Teacher Internal Medicine 08/18/24 Lorene Mendez PA-C [address] [place] [address] Labor Relations Teacher Family [facility] 08/18/24 Energy Assistant Relationship Specialty Start Date End Date Darin Alonzo MD [address] [place] [address] PCP - General Internal Medicine 05/18/16 Arturo Winter PA-C [address] [place] [address] Labor Relations Teacher Family Medicine 08/18/24 Griselda Lema APRN.OVERCOILER [address] [place] [address] Labor Relations Teacher Internal Medicine 08/18/24 Lorene Mendez PA-C [address] [place] [address] Labor Relations Teacher Family Medicine 08/18/24 Energy Assistant Relationship Specialty Start Date End Date Darin Alonzo MD [address] [place] [address] PCP - General Internal Medicine 05/18/16 Arturo Winter PA-C [address] [place] [address] Labor Relations Teacher Family Medicine 08/18/24 Griselda Lema, CALCIMINER.OVERCOILER [address] [place] [address] Labor Relations Teacher Internal Medicine 08/18/24 Lorene Mendez PA-C [address] [place] [address] Labor Relations Teacher Family Medicine 08/18/24 Energy Assistant Relationship Specialty Start Date End Date Darin Alonzo MD [address] [place] [address] PCP - General Internal Medicine 05/18/16 Arturo Winter PA-C [address] [place] [address] Labor Relations Teacher Family Medicine 08/18/24 Griselda Lema, CALCIMINER.OVERCOILER [address] [place] [address] Labor Relations Teacher Internal Medicine 08/18/24 Lorene Mendez PA-C [address] [place] [address] Labor Relations Teacher Family Medicine 08/18/24 Energy Assistant Relationship Specialty Start Date End Date Darin Alonzo MD [address] [place] [address] PCP - General Internal Medicine 05/18/16 Arturo Winter PA-C [address] [place] [address] Labor Relations Teacher Family Medicine 08/18/24 Griselda Lema APRN.OVERCOILER [address] [place] [address] Labor Relations Teacher Internal Medicine 08/18/24 Lorene Mendez PA-C [address] [place] [address] Labor Relations Teacher Family Medicine 08/18/24 Energy Assistant Relationship Specialty Start Date End Date Darin Alonzo MD [address] [place] [address] PCP - General Internal Medicine 05/18/16 Arturo Winter PA-C [address] [place] [address] Labor Relations Teacher Family Medicine 08/18/24 Griselda Lema APRN.OVERCOILER [address] [place] [address] Labor Relations Teacher Internal Medicine 08/18/24 Lorene Mendez PA-C [address] [place] [address] Labor Relations Teacher Family Medicine 08/18/24 Energy Assistant Relationship Specialty Start Date End Date Darin Alonzo MD [address] [place] [address] PCP - General Internal Medicine 05/18/16 Griselda Lema APRN.OVERCOILER [address] [place] [address] Labor Relations Teacher Internal Medicine 08/18/24 Energy Assistant Relationship Specialty Start Date End Date Darin Alonzo MD [address] [facility] [place] [address] PCP - General Internal Medicine 05/18/16 Griselda Lema APRN.OVERCOILER [address] [facility] [address] Labor Relations Teacher Internal Medicine 08/18/24 Energy Assistant Relationship Specialty Start Date End Date Darin Alonzo MD [address] [place] [address] PCP - General Internal Medicine 05/18/16 Griselda Lema CALCIMINER.OVERCOILER [address] [facility] [address] Labor Relations Teacher Internal Medicine 08/18/24 Energy Assistant Relationship Specialty Start Date End Date Darin Alonzo MD [address] [facility] [place] [address] PCP - General Internal Medicine 05/18/16 Griselda Lema, CALCIMINER.OVERCOILER [address] [place] [address] Labor Relations Teacher Internal Medicine 08/18/24 Energy Assistant Relationship Specialty Start Date End Date Darin Alonzo MD [address] [facility] [place] [place] [address] PCP - General Internal Medicine 05/18/16 Griselda Lema APRN.OVERCOILER [address] [place] [address] Labor Relations Teacher Internal Medicine 08/18/24 Energy Assistant Relationship Specialty Start Date End Date Darin Alonzo MD [address] [facility] [place] [address] PCP - General Internal Medicine 05/18/16 Griselda Lema APRN.OVERCOILER [address] [place] [address] Labor Relations Teacher Internal Medicine 08/18/24 Energy Assistant Relationship Specialty Start Date End Date Darin Alonzo MD [address] [place] [address] PCP - General Internal Medicine 05/18/16 Griselda Lema CALCIMINER.OVERCOILER [address] [place] [address] Labor Relations Teacher Internal Medicine 08/18/24 Energy Assistant Relationship Specialty Start Date End Date Darin Alonzo MD [address] [facility] [id number] PCP - General Internal Medicine 05/18/16 Griselda Lema, CALCIMINER.OVERCOILER [address] [place] [address] Labor Relations Teacher Internal Medicine 08/18/24 Energy Assistant Relationship Specialty Start Date End Date Darin Alonzo MD [address] [facility] [place] [address] PCP - General Internal Medicine 05/18/16 Griselda Lema APRN.OVERCOILER [address] [place] [address] [facility] Internal Medicine 08/18/24 Energy Assistant Relationship Specialty Start Date End Date Darin Alonzo MD [address] [place], [place] [id number] PCP - General Internal Medicine 05/18/16 Griselda Lema APRN.OVERCOILER [address] [place] [address] [facility] Internal [facility] 08/18/24 Energy Assistant Relationship Specialty Start Date End Date Darin Alonzo MD [address] [place], [place] [id number] PCP - General Internal Medicine 05/18/16 Griselda Lema APRN.OVERCOILER [address] [place] [address] [facility] Internal Medicine 08/18/24 Goals (unrecognized section [...] BE BASED ON THE PRIMARY CLINICAL RECORDS. [employer] [facility]. provides no warranty or guarantee of the accuracy or completeness of information in this document.
--- NOTE | 2025-04-13 01:41 | CDU_ITS ---
Reason For Study Reason For Study: Carotid stenosis Rt. Velocities/BP Lt. Velocities/BP Prox CCA 59.8/6.9 cm/sec. Prox CCA 67.4/8 cm/sec. Mid CCA 57/6.9 cm/sec. Mid CCA 66.3/9.1 cm/sec. Dist CCA 54.1/8.8 cm/sec. Dist CCA 59.7/11.3 cm/sec. Prox ICA 63/11.3 cm/sec. Prox ICA 71.6/18.8 cm/sec. Mid ICA 80.6/15.7 cm/sec. Mid ICA 101.1/18.8 cm/sec. Dist ICA 77.3/14.6 cm/sec. Dist ICA 77.7/17.6 cm/sec. Rt. ICA/CCA = 1.41. Lt. ICA/CCA = 1.52. Prox ECA 135.7 cm/sec. Prox ECA 119.3 cm/sec. Rt. Vert. 58.6/14.6 cm/sec. Lt. Vert. 47/9 cm/sec. Right Extracranial There is heterogeneous, irregular atherosclerotic plaque noted in the right common carotid artery. There is heterogeneous, irregular atherosclerotic plaque noted in the right internal carotid artery. There is heterogeneous, irregular atherosclerotic plaque noted in the right external carotid artery. Antegrade flow is noted in the right vertebral artery. Left Extracranial There is heterogeneous, irregular atherosclerotic plaque noted in the left common carotid artery. There is heterogeneous, irregular atherosclerotic plaque noted in the left internal carotid artery. There is heterogeneous, irregular atherosclerotic plaque noted in the left external carotid artery. Antegrade flow is noted in the left vertebral artery. Procedure Carotid Duplex [id number]. This is a Carotid Duplex examination using B-mode, color flow and specral Doppler. Exam performed in department. VL/Carotid Duplex Ultrasound Interpretation Summary Mild (<50%) stenosis right extracranial internal carotid. Mild (<50%) stenosis left extracranial internal carotid. Patent and antegrade vertebrals bilaterally. Ordering Physician: Raj Schroeder Referring Physician: Rupinder Lei Performed By: Eve Betts RVT
[2025-04-13 02:23] LABS: Magnesium 1.6 mg/dL (1.5-2.2)
--- OUTSIDE RECORDS SUMMARY | 2025-04-13 02:24 | XMS RPT_ITS | CCD ---
Author Organization [facility] Care Team Providers Care Tunnel Mucker Name Role Phone YASHIRA GIORDANO Unavailable Unavailable YASHIRA GIORDANO Unavailable Unavailable Darin Alonzo MD Primary Care Provider Dr. Darin Alonzo Primary Care Provider Dr. Boris Dean Emergency Provider [phone] Hamida Anderson Admit Provider Dr. Hamida [...] Provider Darin Alonzo MD Primary Care Provider Nohemy Winter PA-C Unavailable Older AIRCRAFT CLEANER.Griselda DACOSTA Unavailable Lorene Mendez PA-C Unavailable Arsh Chaney Attending Unavailable Darin Alonzo Primary Care Unavailable DARIN ALONZO Primary Care Unavailable DARIN ALONZO Referring Unavailable OLDER, GRISELDA Attending Unavailable GANTA, DARIN Primary Care Unavailable GANTA, DARIN Primary Care Unavailable GANTA, DARIN Primary Care Unavailable OLDER, GRISELDA Attending Unavailable OLDER, GRISELDA Referring Unavailable GANTA, DARIN Primary Care Unavailable OLDER, GRISELDA Referring Unavailable GANTA, DARIN Primary Care Unavailable OLDER, GRISELDA Attending Unavailable GANTA, DARIN Primary Care Unavailable OLDER, GIRSELDA Referring Unavailable GANTA, DARIN Primary Care Unavailable [...] Referring Unavailable GANTA, DARIN Primary Care Unavailable Ganta Dr. Darin BURDICK Primary Care Provider [phone] Dr. Jim Owens DO Emergency Provider Dr. Raj Schroeder DO Admit Provider Unavail able Dr. Raj Schroeder DO Attending Provider Unav ailable Allergies Allergy Classification Reported Allergen(s) Allergy Type Date of Onset Reaction(s) Facility (20 sources) Sulfonamides (Antibiotic); Translations: [SULFA (SULFONAMIDE ANTIBIOTICS)] Propensity to adverse reactions to drug (disorder) 5 Rash Other [place] [facility] (20 sources) Lisinopril; Translations: [LISINOPRIL] Drug Allergy 2 Cough Medications Current Medications Medication Drug Class(es) Dates Sig (Normalized) Sig (Original) amLODIPine 2.5 mg oral tablet (20 sources) Dihydropyridine Calcium Channel Yamileth Start: 03-18-2022 End: 01-10-2025 take 1 tablet by mouth once daily Amlodipine 2.5 mg tablet Active 2.5 mg PO DAILY March 21, 2023 12:00am Comment on above: Take 1 tablet by alhaji th once daily. TAKE 1 TABLET BY ALHAJI TH EVERY DAY aspirin 81 mg chewable tablet (20 sources) Platelet Aggregation Inhibitor, Nonsteroidal Anti-inflammatory Drug Start: 03-10-2022 Aspirin 81 mg Tablet,Chewable Active 1 {tbl} PO DAILY March 10, 2022 12:00am [facility] Aspirin 81 mg Ta b Take 81 [...] alhaji th twice daily for 5 days. famotidine 40 mg oral tablet (7 sources) Histamine-2 Receptor Antagonist Start: End: take 1 tablet by mouth once daily at bedtime famotidine (PEPCID) 40 mg tablet Take 1 tablet by mouth daily at bedtime. 30 tablet 1 02/07/2025 03/07/2025 Discontinued fexofenadine hydrochloride 60 mg oral tablet (20 sources) Histamine-1 Receptor Antagonist Start: take 1 tablet by mouth twice daily Fexofenadine 60 mg Tablet Active 60 mg PO TWICE A DAY March 10, 2022 12:00am allergies Comment on above: Take 1 tablet by alhaji twice daily. 14 actuat fluticasone furoate 0.1 [...] 1 Puff as ins tructed once daily. Fluticasone Propion-Salmeterol (20 sources) Corticosteroid, beta2-Adrenergic Agonist Start: 04-13-2025 Fluticasone Propion-Salmeterol 250-50 mcg/dose blister with device Active 1 NMA INHALATION TWICE A DAY April 13, 2025 12:00am Start: 04-01-2025 take 1 puff(s) by in halation twice daily fluticasone-salmeterol (WIXELA INHUB) 250-50 mcg/dose inhaler Inhale 1 puff as instructed two times a day. 180 each 3 04/01/2025 Active Start: 03-28-2025 take 1 puff(s) by in halation [address] [place] [address] 6 month f/u Pulmonary Medicine Comment on above: 6 month f/u Start: 12-12-2024 Hemoglobin A1c measurement HbA1C Start: 10-11-2024 End: 10-11-2024 Patient encounter procedure 10/11/2024 8:00 AM EST Office Visit Internal Medicine [place] [address] [place] [address] Griselda Lema APRN.GAMER [address] [place] [address] 3 month follow up Internal Medicine [place] Comment on above: 3 month follow up Start: 09-21-2024 Hemoglobin A1c measurement HbA1C Start: 09-20-2024 End: 09-20-2024 Patient encounter procedure 09/20/2024 7:20 AM EST Office Visit [facility] [place] [address] [place] [address] Griselda Lema APRN.GAMER [address] [place] [address] 3 month follow up [facility] [place] Comment on above: 3 month follow up Start: 09-19-2024 End: 09-19-2024 Patient encounter procedure 09/19/2024 10:50 AM EST Appointment Mammogram [address] [place] [address] Encounter for screening mammogram for breast cancer [Z12.31] Mammogram Comment on above: Encounter for screen ing mammogram for breast cancer [Z12.31] Start: 09-11-2024 Advance Directive Discussion Advance Directive Discussion Start: 09-04-2024 End: 12-04-2024 Thyrotropin [Units/volume] in Serum or Plasma THYROID STIMULATING HORMONE Lab Routine Acquired hypothyroidism Medication management Expected: 09/04/2024 (Approximate), Expires: 12/04/2024 [facility] Work Phone: Comment on above: Expected: 09/04/2024 (Approximate), Expires: 12/04/2024 Start: 09-04-2024 End: 12-04-2024 Thyroxine (T4) free [Mass/volume] in Serum or Plasma T4 FREE/FREE THYROXINE Lab Routine Acquired hypothyroidism Medication management Expected: 09/04/2024 (Approximate), Expires: 12/04/2024 Comment on above: Expected: 09/04/2024 (Approximate), Expires: 12/04/2024 Start: 08-17-2024 RSV Vaccine (1 - 1-d ose 60+ series) RSV Vaccine (1 - 1-dose 60+ series) Comment on above: Postponed from 06/21 (Declined at this time) Start: 08-17-2024 RSV Vaccine (1 - 1-d ose 75+ series) RSV Vaccine (1 - 1-dose 75+ series) Comment on above: Postponed from 06/21 (Declined at this time) Start: 08-05-2024 Hepatitis B surface antibody level LDL Cholesterol Start: 07-22-2024 End: 10-21-2024 Thyrotropin [Units/volume] in Serum or Plasma THYROID STIMULATING HORMONE Lab Routine Acquired hypothyroidism Medication management Expected: 07/22/2024 (Approximate), Expires: 10/21/2024 [facility] Work Phone: Comment on above: Expected: 07/22/2024 (Approximate), Expires: 10/21/2024 Start: 07-14-2024 Glaucoma screening Dilated Retinal E xam Start: 07-14-2024 Hepatitis C antibody , confirmatory test Dilated Retinal Exam Start: 07-13-2024 End: 07-13-2024 Patient encounter procedure 07/13/2024 8:00 AM EDT Immunization [facility] [place] [address] [place], [place] [id number] [place], Immunization Clinic Nurse [address] [place], [place] [id number] 65+ Flu Vaccine [facility] [place] Comment on above: 65+ Flu Vaccine Start: 07-04-2024 Covid-19 Vaccine ( season) Covid-19 Vaccine ( season) Start: 2024 End: 2024 Patient encounter procedure 2024 7:20 AM EDT Office Visit Internal Medicine [place] [address] [place], [place] [id number] Griselda Lema APRN.GAMER [address] [place] [address] 3 month follow up Internal Medicine [place] Comment on above: 3 month follow up Start: 06-17-2024 End: 09-16-2024 CBC panel - Blood by Automated count COMPLETE BLOOD COUNT Lab Routine Controlled type 2 diabetes mellitus without complication, unspecified whether intermediate frame tender insulin use (HCC) Essential hypertension Expected: 06/17/2024 (Approximate), Expires: 09/16/2024 Comment on above: Expected: 06/17/2024 (Approximate), Expires: 09/16/2024 Start: 06-17-2024 End: 09-16-2024 Comprehensive metabolic 2000 panel - Serum or Plasma COMPREHENSIVE METABOLIC PANEL Lab Routine Controlled type 2 diabetes mellitus without complication, unspecified whether intermediate frame tender insulin use (HCC) Essential hypertension Hyperlipidemia, unspecified hyperlipidemia type Expected: 06/17/2024 (Approximate), Expires: 09/16/2024 Comment on above: Expected: 06/17/2024 (Approximate), Expires: 09/16/2024 Start: 06-17-2024 End: 09-16-2024 Hemoglobin A1c in Blood HEMOGLOBIN A1C Lab Routine Controlled type 2 diabetes mellitus without complication, unspecified whether half-way insulin use (HCC) Expected: 06/17/2024 (Approximate), Expires: 09/16/2024 Comment on above: Expected: 06/17/2024 (Approximate), Expires: 09/16/2024 Start: 06-17-2024 End: 09-16-2024 Lipid 1996 panel - Serum or Plasma LIPID PANEL BASIC Lab Routine Hyperlipidemia, unspecified hyperlipidemia type Expected: 06/17/2024 (Approximate), Expires: 09/16/2024 Comment on above: Expected: 06/17/2024 (Approximate), Expires: 09/16/2024 Start: 06-17-2024 End: 09-16-2024 Microalbumin/Creatinine [Mass Ratio] in Urine ALBUMIN/CREATININE RATIO, URINE Lab Routine Controlled type 2 diabetes mellitus without complication, unspecified whether intermediate frame tender insulin use (HCC) Expected: 06/17/2024 (Approximate), Expires: 09/16/2024 [facility] Work Phone: Comment on above: Expected: 06/17/2024 (Approximate), Expires: 09/16/2024 Start: 06-17-2024 End: 09-16-2024 Thyrotropin [Units/volume] in Serum or Plasma THYROID STIMULATING HORMONE Lab Routine Acquired hypothyroidism Expected: 06/17/2024 (Approximate), Expires: 09/16/2024 Comment on above: Expected: 06/17/2024 (Approximate), Expires: 09/16/2024 Start: 06-14-2024 End: 06-14-2024 Patient encounter procedure Pulmonary Medicine Comment on above: 6 month follow up Start: 05-19-2024 ANNUAL PCP TEAM COUNTY SUPERVISOR ROMY DISEASE VISIT ANNUAL PCP TEAM CHRONIC DISEASE VISIT Start: 05-19-2024 BP CONTROLLED (<130/80) BP CONTROLLE D (<130/80) Start: 05-19-2024 Covid-19 Vaccine ( season) Covid-19 Vaccine () Comment on above: Postponed from 05/12 (Declined at this time) Start: 05-19-2024 COVID-19 VACCINE (6 - Moderna series) COVID-19 VACCINE (6 - Moderna series) Comment on above: Postponed from 11/04 (Declined at this time) Start: 05-19-2024 Urine microalbumin profile Comment on above: Postponed from 03/23 (Declined at this time) Start: 05-12-2024 Influenza vaccination Influenza Vacc ine (#1) Start: 04-10-2024 ANNUAL PCP TEAM COUNTY SUPERVISOR ROMY DISEASE VISIT ANNUAL PCP TEAM CHRONIC DISEASE VISIT Start: 03-21-2024 End: 03-21-2024 Patient encounter procedure 03/21/2024 7:20 AM EDT Office Visit Internal Medicine [place] [address] [place] [address] Griselda Lema APRN.GAMER [address] [place], [place] [id number] 3month FU DM [facility] [place] Comment on above: 3month FU DM Start: 03-15-2024 End: 03-15-2024 Patient encounter procedure 03/15/2024 7:20 AM EDT Office Visit Internal Medicine [place] [address] [place] [address] Griselda Lema APRN.GAMER [address] [place] [address] 3 month DM follow up Internal Medicine [place] Comment on above: 3 month DM follow up Start: 03-11-2024 Hemoglobin A1c measurement HbA1C Start: 03-10-2024 Influenza vaccination [facility] Comment on above: Postponed from 05/12 (Declined at this time) Start: 03-01-2024 ANNUAL PCP TEAM COUNTY SUPERVISOR ROMY DISEASE VISIT ANNUAL PCP TEAM CHRONIC DISEASE VISIT Start: 02-23-2024 Urine microalbumin profile DTaP,Tdap,Td Vaccine (1 - Tdap) Start: 02-22-2024 End: 05-23-2024 Bacteria identified in Wound by Culture [facility] Work Phone: Comment on above: Expected: 02/22/2024 , Expires: 05/23/2024 Start: 02-03-2024 Hemoglobin A1c measurement HbA1C Start: 02-03-2024 Hemoglobin A1c/Hemoglobin.total in Blood HbA1C Start: 01-31-2024 ANNUAL PCP TEAM COUNTY SUPERVISOR ROMY DISEASE VISIT ANNUAL PCP TEAM CHRONIC DISEASE VISIT Start: 01-24-2024 Hepatitis B surface antibody level LDL CHOLESTEROL Start: 01-17-2024 End: 04-17-2024 Thyrotropin [Units/volume] in Serum or Plasma TSH BLD Lab Routine Medication management Acquired hypothyroidism Expected: 01/17/2024 (Approximate), Expires: 04/17/2024 [facility] Work Phone: Comment on above: Expected: 01/17/2024 (Approximate), Expires: 04/17/2024 Start: 01-17-2024 End: 04-17-2024 Thyroxine (T4) free [Mass/volume] in Serum or Plasma T4 FREE/FREE THYROX Lab Routine Medication management Acquired hypothyroidism Expected: 01/17/2024 (Approximate), Expires: 04/17/2024 [facility] Work Phone: Comment on above: Expected: 01/17/2024 (Approximate), Expires: 04/17/2024 Start: 12-15-2023 End: 03-15-2024 CBC W Auto Differential panel - Blood [facility] Work Phone: Comment on above: Expected: 12/15/2023 , Expires: 03/15/2024 Start: 12-15-2023 End: 03-15-2024 Thyrotropin [Units/volume] in Serum or Plasma [facility] Work Phone: Comment on above: Expected: 12/15/2023 , Expires: 03/15/2024 Start: 11-09-2023 Hemoglobin A1c/Hemoglobin.total in Blood HBA1C Start: 11-02-2023 Hepatitis B screening URINE AL BUMIN:CREATININE RATIO Start: 11-01-2023 3 comp foot exam completed DIABETIC FOOT EXAM Start: 11-01-2023 ANNUAL PCP TEAM COUNTY SUPERVISOR ROMY DISEASE VISIT ANNUAL PCP TEAM CHRONIC DISEASE VISIT Start: 11-01-2023 Diabetic foot examination Diabetic F oot Exam Start: 10-24-2023 Hepatitis B surface antibody level LDL CHOLESTEROL Start: 09-27-2023 Hepatitis C antibody , confirmatory test DILATED RETINAL EXAM Start: 09-11-2023 Behavioral Health Screening Behavioral Health Screening Start: 08-14-2023 End: 10-14-2023 CBC panel - Blood by Automated count CBC Lab Routine Essential hypertension Controlled type 2 diabetes mellitus without complication, unspecified whether intermediate frame tender insulin use (HCC) Expected: 08/14/2023 (Approximate), Expires: 10/14/2023 [facility] Work Phone: Comment on above: Expected: 08/14/2023 (Approximate), Expires: 10/14/2023 Start: 08-14-2023 End: 10-14-2023 Comprehensive metabolic 2000 panel - Serum or Plasma COMP METABOLIC PANEL Lab Routine Essential hypertension Hyperlipidemia, unspecified hyperlipidemia type Controlled type 2 diabetes mellitus without complication, unspecified whether intermediate frame tender insulin use (HCC) Expected: 08/14/2023 (Approximate), Expires: 10/14/2023 [facility] Work Phone: Comment on above: Expected: 08/14/2023 (Approximate), Expires: 10/14/2023 Start: 08-14-2023 End: 10-14-2023 Hemoglobin A1c in Blood HGB A1C Lab Routine Controlled type 2 diabetes mellitus without complication, unspecified whether intermediate frame tender insulin use (HCC) Expected: 08/14/2023 (Approximate), Expires: 10/14/2023 [facility] Work Phone: Comment on above: Expected: 08/14/2023 (Approximate), Expires: 10/14/2023 Start: 08-14-2023 End: 10-14-2023 Lipid 1996 panel - Serum or Plasma LIPID PANEL BASIC Lab Routine Hyperlipidemia, unspecified hyperlipidemia type Expected: 08/14/2023 (Approximate), Expires: 10/14/2023 [facility] Work Phone: Comment on above: Expected: 08/14/2023 (Approximate), Expires: 10/14/2023 Start: 08-14-2023 End: 10-14-2023 Thyrotropin [Units/volume] in Serum or Plasma TSH BLD Lab Routine Acquired hypothyroidism Expected: 08/14/2023 (Approximate), Expires: 10/14/2023 [facility] Work Phone: Comment on above: Expected: 08/14/2023 (Approximate), Expires: 10/14/2023 Start: 08-01-2023 ANNUAL PCP TEAM COUNTY SUPERVISOR RMOY DISEASE VISIT ANNUAL PCP TEAM CHRONIC DISEASE VISIT Start: 07-26-2023 Hemoglobin A1c/Hemoglobin.total in Blood HBA1C Start: 07-25-2023 Hepatitis B surface antibody level LDL CHOLESTEROL Start: 06-15-2023 ANNUAL PCP TEAM COUNTY SUPERVISOR ROMY DISEASE VISIT ANNUAL PCP TEAM CHRONIC DISEASE VISIT Start: 05-12-2023 Influenza vaccination INFLUENZA (#1) Start: 04-23-2023 Hemoglobin A1c/Hemoglobin.total in Blood HBA1C Start: 04-19-2023 ANNUAL PCP TEAM COUNTY SUPERVISOR ROMY DISEASE VISIT ANNUAL PCP TEAM CHRONIC DISEASE VISIT Start: 04-15-2023 Hepatitis B surface antibody level LDL CHOLESTEROL Start: 03-21-2023 ANNUAL PCP TEAM COUNTY SUPERVISOR ROMY DISEASE VISIT ANNUAL PCP TEAM CHRONIC DISEASE VISIT Start: 03-21-2023 BP CONTROLLED (<130/80) BP CONTROLLE D (<130/80) Start: 01-22-2023 Hemoglobin A1c/Hemoglobin.total in Blood HBA1C Start: 12-20-2022 Hepatitis B surface antibody level LDL CHOLESTEROL Start: 11-04-2022 COVID-19 VACCINE (6 - Moderna series) COVID-19 VACCINE (6 - Moderna series) Start: 11-01-2022 End: 01-01-2023 ALBUMIN/CREAT RATIO RND UR ALBUMIN/CREAT RATIO RND UR Lab Routine Controlled type 2 diabetes mellitus without complication, unspecified whether half-way insulin use (HCC) Expected: 11/01/2022, Expires: 01/01/2023 [facility] Work Phone: Comment on above: Expected: 11/01/2022 , Expires: 01/01/2023 Start: 10-26-2022 ADVANCE DIRECTIVE DISCUSSION ADVANCE DIRECTIVE DISCUSSION Comment on above: Postponed from 09/11 (Currently Scheduled) Start: 10-22-2022 3 comp foot exam completed DIABETIC FOOT EXAM Start: 10-22-2022 Adult depression screening assessment DEPRESSION SCREENING Start: 10-22-2022 ANNUAL PCP TEAM COUNTY SUPERVISOR ROMY DISEASE VISIT ANNUAL PCP TEAM CHRONIC DISEASE VISIT Start: 10-22-2022 BP CONTROLLED (<130/80) BP CONTROLLE D (<130/80) Start: 10-18-2022 Hepatitis B screening URINE AL BUMIN:CREATININE RATIO Start: 10-16-2022 Hemoglobin A1c/Hemoglobin.total in Blood HBA1C Start: 09-11-2022 ADVANCE DIRECTIVE DISCUSSION ADVANCE DIRECTIVE DISCUSSION Start: 09-11-2022 DEPRESSION ASSESSMENT DEPRESSION ASS ESSMENT Start: 08-31-2022 End: 10-31-2022 Thyrotropin [Units/volume] in Serum or Plasma TSH BLD Lab Routine Acquired hypothyroidism Expected: 08/31/2022, Expires: 10/31/2022 [facility] Work Phone: Comment on above: Expected: 08/31/2022 , Expires: 10/31/2022 Start: 07-15-2022 End: 09-14-2022 ALGN [facility] Work Phone: Comment on above: Expected: 07/15/2022 , Expires: 09/14/2022 Start: 07-15-2022 End: 09-14-2022 IgE [Units/volume] in Serum or Plasma [facility] Work Phone: Comment on above: Expected: 07/15/2022 , Expires: 09/14/2022 Start: 05-12-2022 Influenza vaccination INFLUENZA (#1) Start: 04-17-2022 Hemoglobin A1c/Hemoglobin.total in Blood HBA1C Start: 04-08-2022 Urine microalbumin profile DTAP,TDAP,TD (1 - Tdap) Comment on above: Postponed from 03/23 (Declined at this time) Start: 04-01-2022 Hepatitis B surface antibody level LDL CHOLESTEROL Start: 03-11-2022 Patient discharge [facility] Work Phone: Start: 03-10-2022 Application of intermittent pneumatic compression device [facility] Work Phone: Start: 03-10-2022 Following clinical pathway protocol [facility] Work Phone: Start: 03-10-2022 Assessment of risk o f venous thromboembolism [facility] Work Phone: Start: 03-10-2022 Cardiac monitoring [facility] Work Phone: Start: 03-10-2022 Care regimes management [facility] Work Phone: Start: 03-10-2022 Catheterization of vein [facility] Work Phone: Start: 03-10-2022 Continuous pulse oximetry [facility] Work Phone: Start: 03-10-2022 Elevation of head of bed [facility] Work Phone: Start: 03-10-2022 Exercises [facility] Work Phone: Start: 03-10-[address]ed interventions [facility] Work Phone: Start: 03-10-[address] [facility] Work Phone: Start: 03-10-2022 Insertion of cathete r into peripheral vein [facility] Work Phone: Start: 03-10-2022 Measuring intake and output [facility] Work Phone: Start: 03-10-2022 Notification of physician [facility] Work Phone: Start: 03-10-2022 Oxygen therapy [facility] Work Phone: Start: 03-10-2022 Providing care accor ding to standard [facility] Work Phone: Start: 03-10-2022 Referral to occupati onal therapist [facility] Work Phone: Start: 03-10-2022 Referral to service [facility] Work Phone: Start: 03-10-2022 Tobacco use cessatio n education [facility] Work Phone: Start: 03-10-2022 [facility] Work Phone: Start: 03-10-2022 MRI of brain without contrast Brain without Contrast [facility] Work Phone: Start: 03-10-2022 Admission procedure [facility] Work Phone: Start: 03-10-2022 Oxygen therapy [facility] Work Phone: Start: 03-10-2022 Plain chest X-ray Chest 1 View [facility] Work Phone: Start: 03-10-2022 [facility] Work Phone: Start: 03-10-2022 Thyroid stimulating hormone measurement [facility] Work Phone: Start: 03-08-2022 Hepatitis C antibody , confirmatory test DILATED RETINAL EXAM Start: 02-17-2022 COVID-19 VACCINE (5 - Booster for Moderna series) COVID-19 VACCINE (5 - Booster for Moderna series) Start: 09-11-2021 DEPRESSION ASSESSMENT DEPRESSION ASS ESSMENT Start: 03-23-2012 Urine microalbumin profile DTAP,TDAP,TD (1 - Tdap) Start: 06-11-2007 Medicare Annual Well ness Visit Medicare Annual Wellness Visit Start: 2002 Hepatitis B Vaccine (1 of 3 - Risk 3-dose series) Hepatitis B Vaccine (1 of 3 - Risk 3-dose series) Start: 2002 RSV Vaccine (1 - 1-d ose 60+ series) RSV Vaccine (1 - 1-dose 60+ series) Start: 1960 Anxiety Screening Anxiety Screening Start: 1960 Depression Screening Depression Scre ening End: 03-21-2023 CBC panel - Blood by Automated count CBC Lab Routine Controlled type 2 diabetes mellitus without complication, without long-term current use of insulin (HCC) Every 6 months for 12 Occurrences starting 03/21/2022 until 03/21/2023 [facility] Work Phone: Comment on above: Every 6 months for 1 2 Occurrences starting 03/21/2022 until 03/21/2023 End: 03-21-2023 Comprehensive metabolic 2000 panel - Serum or Plasma COMP METABOLIC PANEL Lab Routine Controlled type 2 diabetes mellitus without complication, without long-term current use of insulin (HCC) Every 6 months for 12 Occurrences starting 03/21/2022 until 03/21/2023 [facility] Work Phone: Comment on above: Every 6 months for 1 2 Occurrences starting 03/21/2022 until 03/21/2023 End: 12-27-2024 CT Chest WO contrast CT CHEST WO IVCON Radiology Routine Follicular bronchiolitis (HCC) Chronic cough 1 Occurrences starting 11/28/2023 until 12/27/2024 [facility] Work Phone: Comment on above: 1 Occurrences starti ng 11/28/2023 until 12/27/2024 CT Chest WO contrast CT CHEST WO IVCON Radiology Routine Follicular bronchiolitis (HCC) Chronic cough 12/05/2023 8:38 AM EDT [facility] Work Phone: Folate [Moles/volume ] in Serum or Plasma [facility] End: 03-21-2023 Hemoglobin A1c in Blood HGB A1C Lab Routine Controlled type 2 diabetes mellitus without complication, without long-term current use of insulin (HCC) Every 3 months for 24 Occurrences starting 03/21/2022 until 03/21/2023 [facility] Work Phone: Comment on above: Every 3 months for 2 4 Occurrences starting 03/21/2022 until 03/21/2023 Hemoglobin A1c/Hemoglobin.total in Blood [facility] Work Phone: Hemoglobin A1c/Hemoglobin.total in Blood [facility] Influenza virus A an d B RNA and SARS-CoV-2 (COVID-19) N gene panel - Respiratory specimen by DONAVAN with probe detection COVID WITH FLUA+B, ROUTINE Microbiology Routine Acute cough Ordered: 03/21/2022 [facility] Work Phone: Comment on above: Ordered: 03/21/2022 Influenza virus A an d B RNA and SARS-CoV-2 (COVID-19) N gene panel - Respiratory specimen by DONAVAN with probe detection COVID WITH FLUA+B, ROUTINE Microbiology Routine Suspected COVID-19 virus infection Ordered: 06/02/2022 [facility] Work Phone: Comment on above: Ordered: 06/02/2022 End: 03-21-2023 Lipid 1996 panel - Serum or Plasma LIPID PANEL BASIC Lab Routine Controlled type 2 diabetes mellitus without complication, without long-term current use of insulin (HCC) Every 6 months for 12 Occurrences starting 03/21/2022 until 03/21/2023 [facility] Work Phone: Comment on above: Every 6 months for 1 2 Occurrences starting 03/21/2022 until 03/21/2023 Magnesium measurement [facility] End: 08-30-2024 MADISON SCREENING MADISON SCREENING Radiology Routine Encounter for screening mammogram for malignant neoplasm of breast 1 Occurrences starting 08/01/2023 until 08/30/2024 [facility] Work Phone: Comment on above: 1 Occurrences starti ng 08/01/2023 until 08/30/2024 End: 09-05-2025 MG Breast Screening MADISON SCREENING Radiology Routine Encounter for screening mammogram for breast cancer 1 Occurrences starting 08/06/2024 until 09/05/2025 [facility] Work Phone: Comment on above: 1 Occurrences starti ng 08/06/2024 until 09/05/2025 Patient referral [facility] Work Phone: Radiologic exam ches t 2 views XR CHEST 2V FRONTAL/LAT Radiology Routine Acute cough 03/21/2022 6:55 PM EDT [facility] Work Phone: End: 06-08-2023 Radiologic exam chest 2 views XR CHEST 2V FRONTAL/LAT Radiology Routine Follicular bronchiolitis (HCC) 1 Occurrences starting 05/09/2022 until 06/08/2023 [facility] Work Phone: Comment on above: 1 Occurrences starti ng 05/09/2022 until 06/08/2023 End: 06-08-2023 SPIROMETRY WITH DILATOR IF OBSTRUCTED SPIROMETRY WITH DILATOR IF OBSTRUCTED PFT Routine Follicular bronchiolitis (HCC) 1 Occurrences starting 05/09/2022 until 06/08/2023 [facility] Work Phone: Comment on above: 1 Occurrences starti ng 05/09/2022 until 06/08/2023 SPIROMETRY WITH DILA TOR IF OBSTRUCTED SPIROMETRY WITH DILATOR IF OBSTRUCTED PFT Routine Follicular bronchiolitis (HCC) 11/25/2022 9:43 AM EDT [facility] Work Phone: Thyroid stimulating hormone measurement [facility] Work Phone: End: 03-21-2023 Thyrotropin [Units/volume] in Serum or Plasma TSH BLD Lab Routine Controlled type 2 diabetes mellitus without complication, without long-term current use of insulin (HCC) Every 3 months for 24 Occurrences starting 03/21/2022 until 03/21/2023 [facility] Work Phone: Comment on above: Every 3 months for 2 4 Occurrences starting 03/21/2022 until 03/21/2023 [facility] Immunizations Immunization Date Immunization Notes Care Provider Fa jose francisco 07-13-2024 influenza, high dose seasonal, preservative-free Immunization [place] Work Phone: 07-13-2024 influenza virus vaccine, unspecified formulation Dorie Gill [employer] Work Phone: 06-24-2024 respiratory syncytia l virus (RSV) vaccine, adjuvanted (AREXVY) Immunization [place] Work Phone: 06-23-2024 respiratory syncytia l virus (RSV) vaccine, adjuvanted (AREXVY) Darin Alonzo MD Work Phone: 05-09-2024 COVID-19 vaccine (NOVAVAX) Dorie Gill [employer] Work Phone: 02-22-2024 TD(adult) unspecifie d formulation Darleen Orr [employer] Work Phone: 02-22-2024 tetanus and diphther ia toxoids, adsorbed, preservative free, for adult use (5 Lf of tetanus toxoid and 2 Lf of diphtheria toxoid) Darleen Orr [employer] Work Phone: 07-15-2023 influenza (HD-IIV4) vaccine, age 65+ yr, high dose, quadrivalent, PF (FLUZONE HIGH-DOSE) Immunization [place] Work Phone: 07-15-2023 influenza virus vaccine, unspecified formulation Screen [facility] 07-02-2022 influenza, high-dose , quadrivalent vaccine (FLUZONE HIGH DOSE QUADRIVALENT) Immunization [place] Work Phone: 07-02-2022 influenza virus vaccine, unspecified formulation Pamela Hernandez MD Work Phone: 07-03-2021 influenza, high-dose , quadrivalent vaccine (FLUZONE HIGH DOSE QUADRIVALENT) Darin Alonzo MD Work Phone: Work Phone: 10-29-2020 COVID-19 vaccine, fu ll dose (MODERNA) Darin Alonzo MD Work Phone: 07-06-2020 zoster vaccine recombinant Darin Alonzo MD Work Phone: Work Phone: 06-09-2020 influenza, high-dose , quadrivalent vaccine (FLUZONE HIGH DOSE QUADRIVALENT) Darin Alonzo MD Work Phone: 05-12-2020 zoster vaccine recombinant Darin Alonzo MD Work Phone: Work Phone: 04-07-2020 zoster vaccine recombinant Darin Alonzo MD Work Phone: Work Phone: 07-06-2019 influenza, high dose seasonal, preservative-free Darin Alonzo MD Work Phone: 07-03-2018 influenza, high dose seasonal, preservative-free Darin Alonzo MD Work Phone: Work Phone: 07-15-2017 influenza, high dose seasonal, preservative-free Darin Alonzo MD Work Phone: Work Phone: 07-02-2016 influenza, high dose seasonal, preservative-free Darin Alonzo MD Work Phone: Work Phone: 08-10-2015 pneumococcal polysaccharide vaccine, 23 valent Darin Alonzo MD Work Phone: 06-11-2015 influenza, high dose seasonal, preservative-free Darin Alonzo MD Work Phone: Work Phone: 08-11-2014 pneumococcal conjuga te vaccine, 13 valent Darin Alonzo MD Work Phone: 06-25-2014 influenza, seasonal, injectable Darin Alonzo MD Work Phone: 06-22-2013 influenza virus vaccine, unspecified formulation Darin Alonzo MD Work Phone: Work Phone: 06-02-2012 influenza virus vaccine, unspecified formulation Darin Alonzo MD Work Phone: 03-22-2012 tetanus and diphther ia toxoids, adsorbed, preservative free, for adult use (2 Lf of tetanus toxoid and 2 Lf of diphtheria toxoid) Darin Alonzo MD Work Phone: 10-25-2011 zoster vaccine, live Darin Alonzo MD Work Phone: 06-30-2011 influenza virus vaccine, unspecified formulation Darin Alonzo MD Work Phone: 06-15-2010 influenza virus vaccine, unspecified formulation Darin Alonzo MD Work Phone: Work Phone: 06-18-2009 influenza virus vaccine, unspecified formulation Darin Alonzo MD Work Phone: 07-16-2007 influenza virus vaccine, unspecified formulation Darin Alonzo MD Work Phone: 07-03-2006 influenza virus vaccine, unspecified formulation Darin Alonzo MD Work Phone: Work Phone: 08-29-2003 pneumococcal polysaccharide vaccine, 23 valent Nakul Patino MD Work Phone: Payers Date Payer Category Payer Self-pay [id number] 2023 Unknown [id number] 2013 Private Health Insurance [facility] AARP SUPPLEMENT [id number] 2013-Present [phone] [address] [place] [address] Indemnity [id number] 2013 Private Health Insurance [id number] 2007 Medicare MEDICARE MEDICAR E A AND B [id number] 2007-Present [phone] [place] [address] Medicare [id number] 2007 Medicare [id number] 2007 Medicare [id number] Unknown [id number] Social History Date Type Detail Facility Start: 04-19-2022 End: 04-12-2025 Tobacco smoking status NHIS Never smoked tobacco Work Phone: Start: 11-08-2021 End: 03-07-2025 Alcohol intake Current drinker of alcohol (finding) Start: 08-10-2012 History SDOH Alcohol Comment Rarely. Start: 09-27-2013 End: 04-19-2022 Tobacco Comment Parents did not smoke in childhood home. Spouse smoked in home for about 10 years. Start: 1940 Sex Assigned At Not on file [facility] Start: 03-10-2022 End: 03-21-2023 Tobacco smoking status NHIS Unknown if ever smoked [facility] Start: 1940 Sex Assigned At Female [facility] Start: 02-28-2022 End: 08-01-2022 Exposure to SARS-CoV-2 (event) Not sure Work Phone: Start: 09-27-2013 End: 04-19-2022 Tobacco use and exposure Smokeless tobacco non-user Work Phone: Start: 03-01-2023 End: 09-18-2023 History of Social function Work Phone: Start: 03-01-2023 End: 09-18-2023 Tobacco use panel Work Phone: Adult Depression Screening Assessment 0 Work Phone: Medical Equipment Procedure Code Equipment Code Equipment Original Text Equipment Identifier Dates [id number], [id number], [id number], [id number] Start: 03-26-2021 End: 05-17-2024 Comment on above: Test blood sugar(s) 1 times daily. Dx: Type 2 DM - Controlled E11.9 Insulin: No Test 1 time daily. [id number], [id number] Start: 12-19-2016 Comment on above: Easy [facility] o test strips. To be tested 2 times a day One touch ultra 2, t est strips Test 3 times daily. Dx: E11.9 Insulin: No Goals Date Patient Goal Desired Activity /State Functional Status Date Assessment Result Facility 03-11-2022 Functional status Ambulates;Bath room Privilege [facility] Work Phone: 10-09-2017 Are you deaf, or do you have serious difficulty hearing No 10/09/2017 12:55 PM Christy Bardales PA-C No 10-09-2017 Are you blind, or do you have serious difficulty seeing, even when wearing glasses No 10/09/2017 12:55 PM Christy Bardales PA-C No 10-09-2017 Do you have serious difficulty walking or climbing stairs No 10/09/2017 12:55 PM Christy Bardales PA-C No 10-09-2017 Do you have difficul ty dressing or bathing No 10/09/2017 12:55 PM Christy Bardales PA-C No 10-09-2017 Because of a physica l, mental, or emotional condition, do you have difficulty doing errands alone such as visiting a physician's office or shopping No 10/09/2017 12:55 PM Christy Bardales PA-C No Mental Status Date Assessment Result Facility 04-12-2025 Cognitive function Voice/Name [facility] Work Phone: 03-11-2022 Cognitive function Voice/Name [facility] Work Phone: 03-10-2022 Cognitive function Voice/Name [facility] Work Phone: 10-09-2017 Because of a physica l, mental, or emotional condition, do you have serious difficulty concentrating, remembering, or making decisions No 10/09/2017 12:55 PM Christy Bardales PA-C No Clinical Notes 08-11-2014 to 04-12-2025 Telephone Encounter - Alana Birmingham MA - 04/10/2025 2:26 PM EDTTelephone Encounter - Alana Birmingham MA - 04/10/2025 2:26 PM EDTPatient InstructionsPatient Instructions Note Date & Type Note Facility 04-12-2025 Radiology Diagnostic study note [facility] Imaging Services [address] [place] [address] [id number] CTA Head AND Neck W/ Contrast MR#: [id number] Acct: [id number] Name: SHANNON LEIJA Rep #: [id number] : 1940 F 84 From: Lauren Stauffer MD PCP: Dr. Darin Alonzo MD Status: REG E R Study:CTA Head AND Neck W/ Contrast Date of E xam: 04/12/25 Exam# [id number] Ordering Dr: Jim Owens DO PROCEDURE: CTA HEAD AND NECK W/ CONTRAST 04/12/2025 REASON FOR EXAM: DIZZINESS TECHNIQUE: CTA HEAD AND NECK W/ CONTRAST Multiplanar Sagittal and Coronal images were obtained. CONTRAST: Isovue 370 VOLUME: 131 mL One or more dose reduction techniques were used (e.g., Automated exposure control, adjustment of the mA and/or kV according to patient size, use of iterative reconstruction technique). RADIATION DOSE SUMMARY: CTDlvol: 80 mGy DLP: 1459 mGycm COMPARISON: 03/10/2022 FINDINGS: Severe white matter change. Dilated ventricles, likely central atrophy. Arterial calcifications. No definite acute abnormal brain densities. No intracranial hemorrhage. No midline shift. No acute scalp or skull pathology. Multiple skin nodules in the scalp. Bilateral lens extraction. Clear sinuses. Lung apices are clear. Unremarkable superior mediastinum. Cervical spine degeneration. No acute neck soft tissue pathology. No abnormal brain enhancement. The thoracic arch is unremarkable. The common carotid arteries, extracranial internal carotid arteries, and vertebral arteries are patent. No high-grade stenosis, dissection, or aneurysm. There is approximately 50% narrowing in the proximal right ICA, and approximately 70% narrowing in the proximal left ICA.. There is bilateral intracranial ICA calcified plaque, mainly in cavernous portions. No thrombosis, high-grade stenosis, dissection or aneurysm. Dural venous sinuses are patent. CT/CTA Head AND Neck W/ Contrast IMPRESSION: Dkij-gmxnxnj-tugy-right stenosis, proximal extracranial ICA, as seen previously. No thrombosis, high-grade stenosis, dissection or aneurysm in the cervical or intracranial arteries. Patent dural venous sinuses. Reading Location: [place] [address] CC: Dr. Darin Alonzo MD; Dr. Jim Owens DO ~ Supervisor Central Supply: Signed [facility] 04-10-2025 Telephone encounter Note Printed medication list & sent to mail. Alana Birmingham MA 04-10-2025 Miscellaneous Notes Printed medication list & sent to mail. Alana Birmingham MA Please print a list of her medications And mail to her Regards, Darin Alonzo MD Pt called in and reports she will be flying down to [place] in June. She was wanting to know about taking her pills on her carry on. She said the home agent told her she they want them I [...] Aliyah Clemens RN documented in this encounter 04-10-2025 Telephone encounter Note Please print a list of her medications And mail to her Regards, Darin Alonzo MD 04-09-2025 Telephone encounter Note Pt called in and reports she will be flying down to [place] in June. She was wanting to know about taking her pills on her carry on. She said the home agent told her she they want them I the original bottles. The Pt states she wants to put them in the Monday-Monday pill container. Then she wanted to know if she had a print out of what she takes from the providers office would that be good enough, or does she need a letter from her provider. Please call and advise. Aliyah Clemens RN 03-07-2025 Griselda Barajas APRN.OLESYA - 03/07/2025 7:26 [...] - Keep up your exercise routine at [employer] six days a week. - A magnesium refill has been sent: a two-week supply to [facility] now and a 180-day supply via [facility] (expected in about one week). - Schedule a full blood panel in three months to check magnesium level, hemoglobin A1c, kidney and liver function, electrolytes, thyroid, and cholesterol. - If you choose to try increasing telmisartan and stopping amlodipine, take two telmisartan daily, stop amlodipine, monitor your blood pressure at home, and notify me via [employer]. - If you wish to trial stopping your statin before the cholesterol recheck, hold it for 4-6 weeks prior to your lab draw. documented in this encounter 03-07-2025 Note HNO ID: [id number] Author: GRISELDA LEMA APRN.OLESYA Service: ? Author Type: Nurse Practitioner Type: Progress Notes Filed: 03/07/2025 08:35 Note Text: CC: Patient presents with: Recheck: 4 week follow up HPI Shannon Leija is a 84 year old female who presents today for follow up on leg cramps and insomnia. Recording using [employer] software for draft documentation of the visit was discussed with the patient/authorized direct customer service representative; all questions welcomed and answered. Patient/authorized direct customer service representative agreed to proceed Muscle Cramps: - [...] with sleep. Lifestyle: - Shannon exercises at [employer] six days a week. - Enjoys attending shows at [employer]. REVIEW OF SYSTEMS General: no fevers, no [...] mg Tab Take 81 mg by mouth. Yhlapirsqzbit-Utawklyx-Agnkmr (CENTRUM SILVER) tab Take 1 tablet by [...] mood and affect (more content not included)... [facility] 03-07-2025 History of Presen t illness Narrative CC: Patient presents with: Recheck: 4 week follow up HPI Shannon Leija is a 84 year old female who presents today for follow up on leg cramps and insomnia. Recording using [employer] software for draft documentation of the visit was discussed with the patient/authorized direct customer service representative; all questions welcomed and answered. Patient/authorized direct customer service representative agreed to proceed Muscle Cramps: - [...] with sleep. Lifestyle: - Shannon exercises at [employer] six days a week. - Enjoys attending shows at [employer]. [employer] General: no fevers, no [...] mg Tab Take 81 mg by mouth. Dbcaejamgruxd-Alezzxbs-Epzrkm (CENTRUM SILVER) tab Take 1 tablet by [...] Diabetic Foot Exam due on 03/21/2025 Covid-19 Vaccine() due on 10/11/2025 Urine Albumin:Creatinine Ratio due [...] Refill for magnesium sent: 2-week supply to [facility] and 3-month supply to [id number]. - Ordered serum magnesium level recheck in [...] 2 diabetes mellitus without complication, unspecified whether half-way insulin use (HCC) (E11.9) - not discussed today, labs ordered to be reviewed at next visit - Will reassess hemoglobin A1c and renal function in 3 months. Prescription instructions reviewed with patient as applicable. Potential red flag symptoms discussed with the patient. Reviewed appropriate action plan to take if red flag symptoms occur. Patient agreeable to treatment plan. Griselda Lema APRN.GAMER documented in this encounter 03-03-2025 Telephone encounter Note Patient to contact office. Lo Miranda LPN 03-03-2025 Miscellaneous Notes Patient to contact office. Lo Miranda LPN documented in this encounter 03-03-2025 Telephone encounter Note PILAR 12/13/24 Patient phones requesting refills as follows: Requested Prescriptions Pending Prescriptions Disp Refills ipratropium bromide (ATROVENT) 42 mcg (0.06 %) nasal spray [Pharmacy Med Name: Ipratropium [facility] 0.06 % Nasal Solution] 135 mL 3 Sig: USE 2 SPRAYS NASALLY 4 TIMES DAILY Please review and advise. Charisse Castro LPN 03-03-2025 Miscellaneous Notes PILAR 12/13/24 Patient phones requesting refills as follows: Requested Prescriptions Pending Prescriptions Disp Refills ipratropium bromide (ATROVENT) 42 mcg (0.06 %) nasal spray [Pharmacy Med Name: Ipratropium [facility] 0.06 % Nasal Solution] 135 mL 3 Sig: USE 2 SPRAYS NASALLY 4 TIMES DAILY Please review and advise. Charisse Castro LPN documented in this encounter 02-10-2025 Telephone encounter Note Discussed further in visit Griselda Lema APRN.CNP 02-10-2025 Miscellaneous Notes Discussed further in visit Griselda Lema APRN.CNP Patient notified and states taking medication daily after lunch. Magnesium level actually went down further. Is she tolerating the supplement I sent in and taking as ordered? Thank you Griselda Lema APRN.CNP documented in this encounter 02-07-2025 Instructions Griselda Lema APRN.CNP - 02/07/2025 7:31 AM EDT - Stop taking pantoprazole starting tomorrow morning. - Begin famotidine (Pepcid) 40 mg at bedtime tonight; prescription sent to [facility] for a 30-day supply. Once your reflux [...] at bedtime as prescribed; refills sent to [facility] [place] and [facility]. - Watch for any return of muscle cramps, heartburn, cough, or loose stools and let us know if these problems persist. documented in this encounter 02-07-2025 Note HNO ID: [id number] Author: GRISELDA LEMA APRN.CNP Service: ? Author [...] started on a magnesium supplement. Recording using [employer] software for draft documentation of the visit was discussed with the patient/authorized direct customer service representative; all questions welcomed and answered. Patient/authorized direct customer service representative agreed to proceed Hypomagnesemia: - Magnesium [...] mg Tab Take 81 mg by mouth. Fbsdhjepigzek-Fcolehij-Fqknoi (CENTRUM SILVER) tab Take 1 tablet by [...] Wt 72.1 k (more content not included)... [facility] 02-07-2025 History of Presen t illness Narrative CC: Patient presents with: Recheck: 4 week follow up HPI Shannon Leija is a 84 year old female who presents today for follow up on insomnia which she was started on trazadone for and muscle cramps. Was found to have low magnesium so started on a magnesium supplement. Recording using [employer] software for draft documentation of the visit was discussed with the patient/authorized direct customer service representative; all questions welcomed and answered. Patient/authorized direct customer service representative agreed to proceed Hypomagnesemia: - Magnesium [...] mg Tab Take 81 mg by mouth. Neciletckminz-Okrxgryj-Fasgmf (CENTRUM SILVER) tab Take 1 tablet by [...] - Magnesium supplementation to be filled at [facility]. - Will reassess symptoms at follow-up. - recheck mag level in 1-2 weeks. 3. Gastroesophageal reflux disease without esophagitis (K21.9) - Suspect pantoprazole contributing to hypomagnesemia. - Discontinued pantoprazole. - Initiated famotidine 40 mg orally at bedtime; prescription sent to [facility] [place] for 30 days. - Will evaluate efficacy of famotidine in controlling reflux symptoms. 4. Acute cough (R05.1) - Cough well-controlled with current inhaler therapy from pulmonology. - No wheezing, shortness of breath, or other respiratory symptoms reported. 5. Insomnia, unspecified type (G47.00) - Insomnia partially managed with trazodone; however, sleep disrupted by muscle cramps. - Continue trazodone; prescription refilled at [facility]. Short Rx sent to local pharmacy [...] Griselda Lema APRN.CNP documented in this encounter 02-07-2025 Telephone encounter Note Will discuss further at upcoming appointment Griselda Lema APRN.CNP 02-07-2025 Miscellaneous Notes Will discuss further at upcoming appointment Griselda Lema APRN.CNP Patient called said she continues to have leg cramps even with taking the magnesium chloride 64mg Patient asking if a higher dose should be called in? She has 7 pills left Can be reached at [phone] Please advise documented in this encounter 02-05-2025 Telephone encounter Note Patient notified and states taking medication daily after lunch. 02-05-2025 Telephone encounter Note Magnesium level actually went down further. Is she tolerating the supplement I sent in and taking as ordered? Thank you Griselda Lema APRN.CNP 02-05-2025 Telephone encounter Note Patient needs to contact office. Appt scheduled 02/07/3025. Lo Miranda LPN 02-05-2025 Miscellaneous Notes Patient needs to contact office. Appt scheduled 02/07/3025. Lo Miranda LPN documented in this encounter 02-04-2025 Telephone encounter Note Patient called said she continues to have leg cramps even with taking the magnesium chloride 64mg Patient asking if a higher dose should be called in? She has 7 pills left Can be reached at [phone] Please advise Work Phone: 01-15-2025 Telephone encounter Note Left message on [employer]. 01-15-2025 Miscellaneous Notes Left message on [employer]. I sent in a prescription for her to [facility] [place] to take daily. Thank you Griselda Lema APRN.CNP Phoned patient and went over results, notes from Griselda Lema COUNTY SUPERVISOR with understanding. Patient is asking what dose of Magnesium does she need to be taking? Magnesium is low and possibly the cause of her cramping. Start once a day supplement and recheck in 1-2 weeks after starting this. Thank you Griselda Lema APRN.CNP documented in this encounter 01-15-2025 Telephone encounter Note I sent in a prescription for her to [facility] to take daily. Thank you Griselda Lema APRN.CNP 01-13-2025 Telephone encounter Note Phoned patient and went over results, notes from Griselda Lema COUNTY SUPERVISOR with understanding. Patient is asking what dose of Magnesium does she need to be taking? 01-13-2025 Telephone encounter Note Magnesium is low and possibly the cause of her cramping. Start once a day supplement and recheck in 1-2 weeks after starting this. Thank you Griselda Lema APRN.CNP 01-10-2025 Instructions Griselda Lema APRN.CNP - 01/10/2025 [...] any further adjustments. documented in this encounter 01-10-2025 Note HNO ID: [id number] Author: GRISELDA LEMA APRN.OLESYA Service: ? Author Type: Nurse Practitioner Type: Progress Notes Filed: 01/10/2025 07:59 Note Text: CC: Patient presents with: Recheck: 3 month follow up IFRAH Leija is a 84 year old female who presents today for routine follow up. Recording using [employer] software for draft documentation of the visit was discussed with the patient/authorized direct customer service representative; all questions welcomed and answered. Patient/authorized direct customer service representative agreed to proceed Diabetes Mellitus: - [...] dyspnea, edema, or headaches. - Exercises at [employer] 6 days a week: strength training and [...] Insulin: No COMPO (more content not included)... [facility] 01-10-2025 History of Presen t illness Narrative CC: Patient presents with: Recheck: 3 month follow up IFRAH eLija is a 84 year old female who presents today for routine follow up. Recording using [employer] software for draft documentation of the visit was discussed with the patient/authorized direct customer service representative; all questions welcomed and answered. Patient/authorized direct customer service representative agreed to proceed Diabetes Mellitus: - [...] dyspnea, edema, or headaches. - Exercises at [employer] 6 days a week: strength training and [...] mg Tab Take 81 mg by mouth. Shkngmsjpjtmz-Jiffbwdd-Olbojv (CENTRUM SILVER) tab Take 1 tablet by [...] 2 diabetes mellitus without complication, unspecified whether intermediate frame tender insulin use (HCC) (E11.9) - Hemoglobin A1c [...] Griselda Lema APRN.OLESYA documented in this encounter 12-23-2024 Telephone encounter Note RX pended for mail order Charisse Castro LPN 12-23-2024 Miscellaneous Notes RX pended for mail order Charisse Castro LPN documented in this encounter 12-13-2024 History of Presen t illness Narrative [...] TAKE 1 TABLET BY MOUTH TWICE DAILY Rsscfgexfkrxu-Rwkirkgg-Bxtdtr Tab Commonly known as: CENTRUM SILVER pantoprazole [...] DATE OF EXAM: Dec 05 2023 8:38AM [facility] 05[facility] - CT CHEST WO IVCON [...] abnormality in the imaged upper abdomen. Cholelithiasis. Warehouse Associate (topogram) images: No additional findings. Labs: WBC [...] Neut (k/uL) Date Value 12/15/2023 4.38 Abs [place] (k/uL) Date Value 12/15/2023 0.45 07/08/2020 0.41 [...] which included preparing to see the patient, tsyi-so-gusj patient care, completing clinical documentation, performing a medically appropriate examination, counseling and educating the patient/family/caregiver, and ordering medications, tests, or procedures. documented in this encounter 12-13-2024 Note HNO ID: [id number] Author: DORIE GILL APRN.OLESYA Service: ? Author [...] sugar diagnostic test strip Commonly known as: CityNewsUCH ULTRA TEST TEST 1 TIME DAILY COMPOUNDED [...] TAKE 1 TABLET BY MOUTH TWICE DAILY Iprptkdcuhcat-Mbimaqpi-Ivequz Tab Commonly known as: CENTRUM SILVER pantoprazole [...] DATE OF EXAM: Dec 05 2023 8:38AM [facility] 0541 - CT CHEST WO IVCON [...] chest 09/29/2010 RESULT: (more content not included)... [facility] 11-20-2024 Telephone encounter Note Prescription Refill [...] Pagan RN November 20, 2024 8:37 AM 11-20-2024 Miscellaneous Notes Prescription Refill Information The [...] 2024 8:37 AM documented in this encounter 11-18-2024 Telephone encounter Note Patient calling again to let us know that she had been instructed by PCP recently to begin discontinuing her pantoprazole. She is currently using this every 3 days. Advised patient she should return to daily use- could certainly be contributing to her increased coughing. Will make EB aware. Charisse Castro LPN 11-18-2024 Miscellaneous Notes Patient calling again to let us know that she had been instructed by PCP recently to begin discontinuing her pantoprazole. She is currently using this every 3 days. Advised patient she should return to daily use- could certainly be contributing to her increased coughing. Will make EB aware. Charisse Castro LPN Patient calling with one week history of cough and PND. Cough is forceful and occasionally productive of clear mucus, worst overnight. No fever, chills, or myalgias. Some chest discomfort from continued cough and has had episodes of post tussive emesis. She denies wheezing. Asking if she should be treated for exacerbation? Charisse Castro LPN documented in this encounter 11-18-2024 Telephone encounter Note Patient calling with one week history of cough and PND. Cough is forceful and occasionally productive of clear mucus, worst overnight. No fever, chills, or myalgias. Some chest discomfort from continued cough and has had episodes of post tussive emesis. She denies wheezing. Asking if she should be treated for exacerbation? Charisse Castro LPN 10-17-2024 Telephone encounter Note Per MyChart message from 12/13/23- patient may benefit from ICC/LABA therapy, but she wanted to continue ICC alone as she had just switched to Arnuity. PILAR 06/14/24- LABA was offered and patient declined as she had just filled a 90 day supply of Arnuity. Please advise. Charisse Castro LPN 10-17-2024 Miscellaneous Notes Per MyChart message from 12/13/23- patient may benefit from ICC/LABA therapy, but she wanted to continue ICC alone as she had just switched to Arnuity. PILAR 06/14/24- LABA was offered and patient declined as she had just filled a 90 day supply of Arnuity. Please advise. Charisse Castro LPN Patient phones to report she has been using arnuity ellipta inhaler but is still coughing. She is wondering if you wan to change her medication. [facility]. She reports having an appointment on 12/13/24 but is available to come in sooner if indicated by the provider. Christy Pratt MA documented in this encounter 10-17-2024 Telephone encounter Note Patient phones to report she has been using arnuity ellipta inhaler but is still coughing. She is wondering if you wan to change her medication. Her [facility]. She reports having an appointment on 12/13/24 but is available to come in sooner if indicated by the provider. Christy Pratt MA 10-11-2024 Note HNO ID: [id number] Author: GRISELDA LEMA APRN.GAMER Service: ? Author Type: Nurse Practitioner Type: [...] him. Is starting grief sharing class at [employer] soon and hoping this will help. Has [...] mg Tab Take 81 mg by mouth. Ntjkhydbflcft-Kgfpqiny-Gtcagd (CENTRUM SILVER) tab Take 1 tablet by mouth once daily. FAMILY HISTORY Adopted: Yes Social History Tobacco Use Smoking status: Never Smokeless tobacco: Never Tobacco comments: (more content not included)... [facility] 10-11-2024 History of Presen t illness [...] regimen. She does not check BP's generally. Shanonn works out regularly 6-7 times per week [...] him. Is starting grief sharing class at [employer] soon and hoping this will help. Has [...] mg Tab Take 81 mg by mouth. Sofoxsggcmrwu-Ggvvlxla-Kqlgyf (CENTRUM SILVER) tab Take 1 tablet by [...] 2 diabetes mellitus without complication, unspecified whether half-way insulin use (HCC) - ICD9: 250.00, ICD10: [...] - Instructed patient to contact office or njmjl-gn-gdtw after-hours promptly should condition worsen or any new symptoms appear. - [facility] and after hours crisis line 4. Acquired [...] Griselda Lema APRN.CNP documented in this encounter 09-19-2024 History of Presen t illness Narrative [...] PATIENT PRESENTS WITH AN IMPLANTABLE OR ATTACHED CALLIOPE PLAYER: No RADIOLOGY DEPARTMENT: Mammography PERIPHERAL IV DATA: Not applicable SIGNED BY: Poncho Adler September 19, 2024 10:32 AM documented in this encounter 09-19-2024 Note HNO ID: [id number] Author: REBEKAH GUERRIER Mammo Tech Service: ? Author Type: Brass Instrument Repair Technician Type: Progress Notes Filed: 09/19/2024 10:32 Note [...] PATIENT PRESENTS WITH AN IMPLANTABLE OR ATTACHED CALLIOPE PLAYER: No RADIOLOGY DEPARTMENT: Mammography PERIPHERAL IV DATA: Not applicable SIGNED BY: Rebekah uGerrier VeriWave September 19, 2024 10:32 AM [facility] 09-19-2024 Telephone encounter Note Patient calling and asking about thyroid lab testing results and instructions. Patient Notified: Thyroid levels in normal range. Continue current dosing of levothyroxine. Take care Griselda Lema APRN.GAMER Patient voices understanding. Sarina Swan RN 09-19-2024 Miscellaneous Notes Patient calling and asking about thyroid lab testing results and instructions. Patient Notified: Thyroid levels in normal range. Continue current dosing of levothyroxine. Take care Griselda Lema APRN.GAMER Patient voices understanding. Sarina Swan RN documented in this encounter 08-07-2024 Telephone encounter Note Mammogram order placed. Please contact patient to schedule. Nohemy Murillo MA 08-07-2024 Miscellaneous Notes Mammogram order placed. Please contact patient to schedule. Nohemy Murillo MA Please help her schedule Regards, Darin Alonzo MD Patient calls and states that it is time for her annual mammogram. Patient asking if orders can be placed so that she can get this scheduled? Sarina Swan RN documented in this encounter 08-06-2024 Telephone encounter Note Please help her schedule Regards, Darin Alonzo MD 08-06-2024 Telephone encounter Note Patient calls and states that it is time for her annual mammogram. Patient asking if orders can be placed so that she can get this scheduled? Sarina Swan RN 08-05-2024 Telephone encounter Note Patient notified. 08-05-2024 Miscellaneous Notes Patient notified. TSH still abnormal. Verify she is taking 1 tablet daily. If so, cut one tablet in half once daily and we will recheck in 4-6 weeks. Thank you Griselda Lema APRN.CNP documented in this encounter 08-05-2024 Telephone encounter Note TSH still abnormal. Verify she is taking 1 tablet daily. If so, cut one tablet in half once daily and we will recheck in 4-6 weeks. Thank you Griselda Lema APRN.CNP 06-24-2024 Telephone encounter Note Patient notified and Health Maintenance updated. 06-24-2024 Miscellaneous Notes Patient notified and Health Maintenance updated. No need to get one at this time. Thank you Griselda Lema APRN.CNP Patient calls and wanted office to know that she received her RSV Vaccine today at [facility] (06/24/2024) Patient also was checking with Griselda to see if she needed to get Dtap. Patient states that this was discussed in office that she had gotten a shot about a year ago when [facility]. Patient making sure that she is not supposed to get another one. Please review and advise, Sarina Swan RN documented in this encounter 06-24-2024 Telephone encounter Note No need to get one at this time. Thank you Griselda Lema APRN.CNP 06-24-2024 Telephone encounter Note Patient calls and wanted office to know that she received her RSV Vaccine today at [facility] (06/24/2024) Patient also was checking with Griselda to see if she needed to get Dtap. Patient states that this was discussed in office that she had gotten a shot about a year ago when [facility]. Patient making sure that she is not supposed to get another one. Please review and advise, Sarina Swan RN 2024 Note HNO ID: [id number] Author: GRISELDA LEMA APRN.CNP Service: ? Author [...] Sulfa (Sulfonamide Antibiotics) MEDICATIONS blood sugar diagnostic (Index ULTRA TEST) test strip TEST 1 TIME [...] mg Tab Take 81 mg by mouth. Zvlogelqbxuvu-Ahcxztvo-Ggzfwx (CENTRUM SILVER) tab Take 1 tablet by mouth once daily. FAMILY HISTORY Adopted: Yes Social History Tobacco Use Smoking status: Never Smokeless tobacco: Never Tobacco comments: Daniel (more content not included)... [facility] 2024 History of Presen t illness [...] Sulfa (Sulfonamide Antibiotics) MEDICATIONS blood sugar diagnostic (Phynd Technologies, IncTOUCH ULTRA TEST) test strip TEST 1 TIME [...] mg Tab Take 81 mg by mouth. Vceiomrgbqjtt-Ploutuxx-Meleox (CENTRUM SILVER) tab Take 1 tablet by [...] 1-dose 75+ series) due on 08/17/2024 Covid-19 Vaccine(9 ) due on 07/04/2024 HbA1C due on 12/12/2024 Diabetic Foot Exam due on 03/21/2025 Urine Albumin:Creatinine Ratio due on 06/13/2025 LDL Cholesterol due on 06/13/2025 Bone Density Screening Completed Advance Directive Discussion Completed Shingrix Vaccine Completed Pneumococcal Vaccine: 65+ Completed Colorectal Cancer Screening Discontinued DATA REVIEWED: Most recent labs ASSESSMENT/PLAN: 1. Controlled type 2 diabetes mellitus without complication, unspecified whether intermediate frame tender insulin use (HCC) - ICD9: 250.00, ICD10: [...] Griselda Lema APRN.CNP documented in this encounter 06-14-2024 History of Presen t illness Narrative [...] TAKE 1 TABLET BY MOUTH TWICE DAILY Mtngwqhgrvwzr-Mwcwctrf-Xpgetd Tab Commonly known as: CENTRUM SILVER pantoprazole [...] subcentimeter pulmonary nodules 3. No thoracic lymphadenopathy Supervisor Central Supply: SAVITA Transcribe Date/Time: Dec 07 2023 4:07P Dictated by : RAACELI ZARAGOZA MD This examination was interpreted and the report reviewed and electronically signed by: ARACELI ZARAGOZA MD on Dec 07 2023 4:20PM EST Results-Findings * * *Final Report* * * DATE OF EXAM: Dec 05 2023 8:38AM [facility] 0541 - CT CHEST WO IVCON [...] which included preparing to see the patient, atnq-vm-gzsh patient care, completing clinical documentation, performing a medically appropriate examination, ordering medications, tests, or procedures, and communicating results to the patient/family/caregiver. documented in this encounter 06-14-2024 Note HNO ID: [id number] Author: DORIE GILL APRN.CNP Service: ? Author [...] TAKE 1 TABLET BY MOUTH TWICE DAILY Fcuvprkfbwfic-Csgsqrtk-Ofvdvz Tab Commonly known as: CENTRUM SILVER pantoprazole [...] subcentimeter pulmonary nodules 3. No thoracic lymphadenopathy Supervisor Central Supply: SAVITA Transcribe Date/Time: Dec 07 2023 4:07P Dictated by : ARACELI ZARAGOZA MD This examination was interpreted and the report reviewed and electronically signed by: ARACELI ZARAGOZA MD on Nov 10 (more content not included)... [facility] 05-17-2024 Telephone encounter Note Prescription Refill [...] Hill LPN May 17, 2024 2:40 PM 05-17-2024 Miscellaneous Notes Prescription Refill Information The [...] 2024 2:40 PM documented in this encounter 05-16-2024 Telephone encounter Note The patient has [...] Curtis LPN May 16, 2024 9:56 AM 05-16-2024 Miscellaneous Notes The patient has been [...] 2024 9:56 AM documented in this encounter 04-25-2024 Telephone encounter Note Will watch for forms. 04-25-2024 Miscellaneous Notes Will watch for forms. Patient calls just to notify office that she saw Dr Chaney this morning at [facility] and ordered diabetic shoes. She just wanted office to know that we would be seeing an order come to us. documented in this encounter 04-25-2024 Telephone encounter Note Patient calls just to notify office that she saw Dr Chaney this morning at [facility] and ordered diabetic shoes. She just wanted office to know that we would be seeing an order come to us. 03-21-2024 Instructions Griselda Lema APRN.CNP - 03/21/2024 7:44 AM EDT Call insurance to see if cost of januvia is going to remain in the 400s. documented in this encounter 03-21-2024 History of Presen t illness Narrative CC: Patient presents with: Recheck: 3 month DM follow up HPI Shannon Leija is a 83 year old female who presents today for diabetic follow up. Recently lost her so dealing with grief. Staying busy with [employer] members, neighbors, friends, and is maintaining her [...] not check BP's generally. Shannon Goes to [place] almost daily and has friends there she [...] mg Tab Take 81 mg by mouth. Auiyrlhxntstn-Oemcqdol-Zoaccw (CENTRUM SILVER) tab Take 1 tablet by [...] 2 diabetes mellitus without complication, unspecified whether intermediate frame tender insulin use (HCC) - ICD9: 250.00, ICD10: [...] Is going to start grief counseling at [employer] next month 6. Acquired hypothyroidism - ICD9: [...] Griselda Lema APRN.CNP documented in this encounter 02-22-2024 Telephone encounter Note Changed to ointment. 02-22-2024 Miscellaneous Notes Changed to ointment. Patient calls [facility] report [facility] not able to [facility] mupirocin cream as they don't have it in stock. Patient asking provider if it is ok to switch to ointment that is in stock. Pended for review. Yoon Jones RN documented in this encounter 02-22-2024 Telephone encounter Note Patient calls to report [facility] is not able to dispense the mupirocin cream as they don't have it in stock. Patient asking provider if it is ok to switch to ointment that is in stock. Pended for review. Yoon Jones, SKY 02-22-2024 Nurse Note This nurse washed wound with soap and water and applied bacitracin cream to wound, covered with Band-Aid and educated pt on washing wound and covering same, she was able to understand. Catina Merlos LPN 02-22-2024 Nurse Note This nurse washed wound with soap and water and applied bacitracin cream to wound, covered with Band-Aid and educated pt on washing wound and covering same, she was able to understand. Catina Merlos LPN documented in this encounter 02-22-2024 History of Presen t illness Narrative This note was created using [employer]. Subjective Shannon Leija is a 83 year [...] history is provided by the patient. No speech language specialist was used. Laceration The incident occurred 5 [...] mg Tab Take 81 mg by mouth. Ffzogscmkcqvj-Pfedqmti-Gbuemd (CENTRUM SILVER) tab Take 1 tablet by [...] wound care F/U with PCP Darleen Orr APRN.GAMER documented in this encounter 02-02-2024 Telephone encounter Note The following approved medication requests have been transmitted electronically. Requested Prescriptions Pending Prescriptions Disp Refills Telmisartan 20 mg tablet [Pharmacy Med Name: Telmisartan 20 MG Oral Tablet] 90 tablet 3 Sig: TAKE 1 TABLET BY MOUTH ONCE DAILY Yahir Parekh APRN.GAMER Work Phone: 02-02-2024 Miscellaneous Notes The following [...] Kathia Mayers LPN. documented in this encounter 02-02-2024 Telephone encounter Note Patient has been [...] Please advise. Thank you. Kathia Mayers LPN. 01-31-2024 Telephone encounter Note Patient has been [...] Please advise. Thank you. Kathia Mayers LPN. 01-31-2024 Miscellaneous Notes Patient has been identified [...] Glimeperide 2mg twice daily be sent to [facility] as pended. It was sent [...] Ria Lopez RN documented in this encounter 01-31-2024 Telephone encounter Note Patient calling for [...] in primary care: 03/21/2024 Ria Lopez RN 01-10-2024 Telephone encounter Note Spoke with Shannon, she is doing ok. Very thankful for the call. Instructed patient if anything is needed not to hesitate to let us know. 01-10-2024 Miscellaneous Notes Spoke with Shannon, she is doing ok. Very thankful for the call. Instructed patient if anything is needed not to hesitate to let us know. T/C patient , johny rang busy. Just received word that patient's spouse . Please send our condolences and ask if there is anything she needs from us. Thank you Griselda Lema APRN.OLESYA documented in this encounter 01-08-2024 Telephone encounter Note T/C patient , johny schmidt. 01-08-2024 Telephone encounter Note Just received word that patient's spouse . Please send our condolences and ask if there is anything she needs from us. Thank you Griselda Lema APRN.CNP 12-18-2023 Miscellaneous Notes Patient calling to ask question about her dosing. Went over notes below from Griselda Lema COUNTY SUPERVISOR with understanding, aware one tablet daily except one day a week one and one half tablets. Called and left a detailed voicemail notifying patient of providers message. Clinic phone number was left in case patient had any questions. Sent information to Pt through [employer] as well. Aliyah Clemens, SKY Thyroid level slightly abnormal which may be cause of her dizzy moments. Decrease to 1 tablet daily except 1 and 1/2 tablet one day a week versus her previous 2 tablets one day a week. Recheck in 4 weeks. Thank you Griselda Lema APRN.CNP documented in this encounter 12-15-2023 Instructions Griselda Lema APRN.CNP - 12/15/2023 7:47 AM EDT Increase glimepiride to 2 tablets with breakfast and 1 tablet with dinner. Call in 2 weeks if fasting blood sugar is consistently greater than 150 so we can increase it further. documented in this encounter 12-15-2023 History of Presen t illness Narrative [...] by mouth once daily. blood sugar diagnostic (Phynd Technologies, IncTOUCH ULTRA TEST) test strip Test 1 time [...] mg Tab Take 81 mg by mouth. Wjnqrrzmvgqeu-Ljcmxxgq-Qogakj (CENTRUM SILVER) tab Take 1 tablet by [...] 2 diabetes mellitus without complication, unspecified whether half-way insulin use (HCC) - ICD9: 250.00, ICD10: [...] Griselda Lema APRN.CNP documented in this encounter 12-05-2023 History of Presen t illness Narrative [...] PATIENT PRESENTS WITH AN IMPLANTABLE OR ATTACHED CALLIOPE PLAYER: No RADIOLOGY DEPARTMENT: CT; Exam(s) Completed: Chest PERIPHERAL IV DATA: Not applicable SIGNED BY: RT Paula(R) December 05, 2023 9:31 AM documented in this encounter 12-04-2023 Miscellaneous Notes Patient has been identified [...] Alanis Daniel LPN. documented in this encounter 11-28-2023 History of Presen t illness Narrative Images from the original note were not included. . [facility] Note Patient name: Shannon Leija PCP: Darin [...] mg Tab Take 81 mg by mouth. Uqgyyjmdxtfzp-Jetvlbpl-Nghodl (CENTRUM SILVER) tab Take 1 tablet by [...] Postnasal drip -Continue Flonase nasal spray Pamela Hernandez MD [facility] documented in this encounter [facility] 10-30-2023 Miscellaneous Notes Patient has been identified [...] Kathia Mayers LPN. documented in this encounter 08-14-2023 Miscellaneous Notes Patient has been identified [...] you. Kathia Mayers. documented in this encounter 08-01-2023 Miscellaneous Notes Pt will be due for a mammogram in August, pt calling for order to be placed. Order pending review. Please call pt to schedule when order is placed. Luisana Curtis LPN documented in this encounter 07-07-2023 Miscellaneous Notes Patient will pharmacy picking tech prednisone from pharmacy. She reports wanting to wait a few days before beginning them. She has increased her inhaler to BID as prescription states and her tessalon pearls to TID as prescribed. She would like to see if this helps as she does not like to take the steroids unless necessary. Christy Pratt MA documented in this encounter 07-06-2023 Miscellaneous Notes Pt calling back. She said that she is agreeable to take a short course of steroids as long as that is safe since she is diabetic. [facility] Alanis Galvin MA Images from the original note were not included. Pamela Hernandez MD She could take a course of [...] Christy Pratt MA documented in this encounter 05-29-2023 History of Presen t illness Narrative Images from the original note were not included. . [facility] Note Patient name: Shannon Leija PCP: Darin [...] to poor control of her diabetes. At [facility], felt persistent cough more attributable to [...] mg Tab Take 81 mg by mouth. Vriieedjqelob-Kjzhdyjt-Nxmsqz (CENTRUM SILVER) tab Take 1 tablet by [...] 6 months or sooner with problems Pamela Hernandez MD [facility] documented in this encounter 05-19-2023 Instructions Griselda Lema APRN.OLESYA - 05/19/2023 9:11 AM EDT To wean off pantoprazole: Take 1 tablet every other day for a few weeks, then every 3rd for a few weeks, then stop. If you start having heartburn, abdominal pain, nausea, bloating or difficulty swallowing restart at previous step. documented in this encounter 05-19-2023 History of Presen t illness Narrative [...] 12 months Went to diabetic clinic at [facility] 6 weeks ago and has had [...] pain/inflammation). Take with food. blood sugar diagnostic (CityNewsUCH ULTRA TEST) test strip Test 1 time [...] mg Tab Take 81 mg by mouth. Igutipquhhlxd-Jgrbhufm-Nxubqr (CENTRUM SILVER) tab Take 1 tablet by [...] 2 diabetes mellitus without complication, unspecified whether half-way insulin use (HCC) - ICD9: 250.00, ICD10: [...] Griselda Lema APRN.CNP documented in this encounter 04-18-2023 Miscellaneous Notes Patient has been identified [...] Lo Miranda LPN documented in this encounter 04-10-2023 History of Presen t illness Narrative [...] 2023 10:47 AM documented in this encounter 04-10-2023 History of Presen t illness Narrative [...] Sulfa (Sulfonamide Antibiotics) MEDICATIONS blood sugar diagnostic (Index ULTRA TEST) test strip Test 1 time [...] mg Tab Take 81 mg by mouth. Flrkihiggwfif-Tihlxwqk-Ixlamx (CENTRUM SILVER) tab Take 1 tablet by [...] Patient agreeable to treatment plan Griselda Lema APRN.GAMER documented in this encounter 03-01-2023 History of Presen t illness Narrative [...] PRESCRIPTION COMPOUNDED PRESCRIPTION Aspirin 81 mg Tab Xylpibqkrtkcp-Btevmycu-Jvsrjo (CENTRUM SILVER) tab Review of Systems CONSTITUTIONAL: [...] Darin Alonzo MD documented in this encounter 02-28-2023 Miscellaneous Notes Pt notified not certain [...] Kathia Swanson LPN documented in this encounter 02-28-2023 Miscellaneous Notes appt made for tomorrow 03/01/23 with . Kathia Swanson LPN Patient needs appointment. Nohemy Winter PA-C Patient calling due to elevated [...] pressure worse . documented in this encounter 02-27-2023 Miscellaneous Notes Patient has been identified [...] Kathia Swanson LPN documented in this encounter 02-23-2023 Miscellaneous Notes Patient calls back to [...] Sarina Gomez LPN documented in this encounter 12-13-2022 Miscellaneous Notes Pt calls in for [...] Alanis Daniel LPN documented in this encounter 11-25-2022 Instructions Pamela Hernandez MD - 11/25/2022 10:18 AM EDT Obtain Flonase nasal spray. One spray each nostril once daily. Rinse mouth after use. documented in this encounter 11-25-2022 History of Presen t illness Narrative Images from the original note were not included. . [facility] Note Patient name: Shannon Leija PCP: Darin [...] 110 mcg 1 puff twice daily. At [facility] with me, she had been to [...] mg Tab Take 81 mg by mouth. Bfjztlxwceysg-Owvnsrmc-Kvdrxa (CENTRUM SILVER) tab Take 1 tablet by [...] proton pump inhibitor and antireflux measures Pamela Hernandez MD [facility] documented in this encounter 11-25-2022 Nurse Note Intake information documented in the prior visit with ANUEL Hollins today. documented in this encounter 11-25-2022 History of Presen t illness Narrative PULM FUNCTION SMARTBLOCK: Provider: Pamela Hernandez MD Assisting Tech: ANUEL Hollins Spirometry: 1 documented in this encounter 11-09-2022 Miscellaneous Notes Patient has been identified [...] Jean Kaba RN documented in this encounter 11-07-2022 History of Presen t illness Narrative [...] 2022 10:02 AM documented in this encounter 11-01-2022 History of Presen t illness Narrative [...] on steroids at that time. She joined [employer] Right now she is doing the treadmill [...] PRESCRIPTION COMPOUNDED PRESCRIPTION Aspirin 81 mg Tab Szoisvcfenemw-Vuornjfg-Jcqrwv (CENTRUM SILVER) tab Review of Systems CONSTITUTIONAL: [...] 2 diabetes mellitus without complication, unspecified whether intermediate frame tender insulin use (HCC) - ICD9: 250.00, ICD10: E11.9 Cont the current medication and exercise regimen Darin Alonzo MD documented in this encounter 09-21-2022 Miscellaneous Notes Med updated to reflect current dosing. Griselda Lema APRN.OLESYA Patient is taking 2 tablets one day a week and 1 tablet the rest of the week. Informed patient to continue that dosing and medication list will be updated. Thyroid level is WNL. Continue with current dose. Thank you Griselda Lema APRN.OLESYA Pt calling to ask PCP to advise on her recent TSH result. Thank you. documented in this encounter 08-23-2022 Miscellaneous Notes August 23, 2022 PID: [id number] Shannon Leija [address] [place] [address] Dear Ms. Leija, We are pleased to [...] report will be kept on file at as part of your permanent medical record and are available for your continuing care. Thank you for allowing us to help in meeting your health care needs. Sincerely, Dr. Hines Interpreting Radiologist [facility] (Normal over 40) documented in this encounter 08-22-2022 History of Presen t illness Narrative [...] IV DATA: Not applicable SIGNED BY: RT Autumn(Celia) August 22, 2022 9:45 AM documented in this encounter 08-19-2022 Miscellaneous Notes Patient has been identified [...] Kathia Swanson LPN documented in this encounter 08-01-2022 History of Presen t illness Narrative [...] PRESCRIPTION COMPOUNDED PRESCRIPTION Aspirin 81 mg Tab Auttshqpgikdz-Emllnges-Imyzzp (CENTRUM SILVER) tab Review of Systems CONSTITUTIONAL: [...] 2 diabetes mellitus without complication, unspecified whether half-way insulin use (HCC) - ICD9: 250.00, ICD10: [...] Darin Alonzo MD documented in this encounter 08-01-2022 Nurse Note Sees at [facility] due to see him next year documented in this encounter 07-28-2022 Miscellaneous Notes Order placed. Last screening on 08/19/21 so needs completed after this date. Please let patient know. Thank you Griselda Lema APRN.GAMER Patient calls to request order for yearly mammogram be placed. Last mammogram completed 08/19/2021. Please call patient at [phone] to schedule once order is placed. Yoon Jones RN documented in this encounter 07-19-2022 Miscellaneous Notes Patient has been identified [...] 07/09/2021 22 Please advise. Thank you. Aliyah Clemens, RN documented in this encounter 07-15-2022 History of Presen t illness Narrative [...] maintained on inhaled steroids. Repeat bronchoscopy in 2017 showed persistent bronchial inflammation and negative cultures. [...] mg Tab Take 81 mg by mouth. Tsutoqwtrtnbq-Slhooeaj-Ahrrww (CENTRUM SILVER) tab Take 1 tablet by [...] IGE BLD - EOSINOPHIL ABS COUNT - [facility] GRP 3. Gastroesophageal reflux disease without esophagitis - ICD9: 530.81, ICD10: K21.9 Symptoms controlled with PPI 4. Post-nasal drip - ICD9: 784.91, ICD10: R09.82 See #2. - IGE BLD - EOSINOPHIL ABS COUNT - [facility] GRP Christy Williamson PA-C documented in this encounter 2022 Miscellaneous Notes Patient has been identified [...] Sarina Gomez LPN documented in this encounter 06-17-2022 Instructions Christy Williamson PA-C - 06/17/2022 1:51 PM EDT Prednisone 20 mg - take 2 tablets daily for 5 days. Check blood sugars while on Prednisone. Mucinex 1 tablet twice daily as needed to help thin secretions. documented in this encounter 06-17-2022 History of Presen t illness Narrative [facility], 06/17/2022: Name: Shannon Leija : 1940 The [...] Christy Williamson PA-C documented in this encounter 06-15-2022 History of Presen t illness Narrative [...] 2022 8:32 AM documented in this encounter 06-15-2022 History of Presen t illness Narrative CC: Patient presents with: Recheck: 1 week cough follow up HPI Shannon Leija is a 81 year old female who presents today for follow up on cough. Was in urgent care 2 weeks ago and prescribed doxycyline. Saw [facility] last week and given azithromycin, benzonatate, flonase, [...] mg Tab Take 81 mg by mouth. Daxwewfrhvscj-Wxkwgmsk-Aeiowv (CENTRUM SILVER) tab Take 1 tablet by [...] Griselda Lema APRN.CNP documented in this encounter 06-02-2022 Instructions Arsh Davalos APRN.CNP - 06/02/2022 [...] concerning to you. documented in this encounter 06-02-2022 History of Presen t illness Narrative Subjective HPI Nontoxic female presents urgent care chief complaint cough congestion. Duration of symptoms 1 week. Associated symptoms cough sinus pressure. Patient states her in [place] she did have a sore throat and [...] mg Tab Take 81 mg by mouth. Cgpmppdpcapnd-Xvlvcmhr-Dvxcxs (CENTRUM SILVER) tab Take 1 tablet by [...] of care. This note was generated using Dragon software. It may contain errors in wording, punctuation, or spelling. Arsh Davalos APRN.OLESYA documented in this encounter 05-09-2022 History of Presen t illness Narrative . [facility] Patient name: Shannon Leija PCP: Darin [...] until February when she was admitted to [facility] hospital with hypertensive urgency. No stroke. Started [...] DATE OF EXAM: Sep 29 2010 10:04AM [facility] 0349 - CT CHEST WO CONTRAST [...] To be tested 2 times a day Uyyzokfkszqkn-Amlzcczs-Dzusml (CENTRUM SILVER) ORAL Tab Take 1 tablet [...] controlled with PPI -Conservative anti-reflux measures Pamela Hernandez MD [facility] documented in this encounter 04-22-2022 Miscellaneous Notes Patient calls and is asking if amlodipine can be sent to mail pharmacy for a 90 day supply with 3 refills? Order pended if agreeable. Sarina Swan RN documented in this encounter 04-21-2022 Miscellaneous Notes Pt called and is notified of providers message. Pt voices understanding. Aliyah Clemens RN Prescription has been sent for new dosage. Thank you Griselda Lema APRN.GAMER Natalie from [facility] pharmacy calling the Codeine-guaifenesin rx Dr Alonzo sent in for her is on manufacture back order. Asking for another rx to replace. They have Robitussin AC 10:100 per 5 ml in stock. Please send another rx patient has already been in to pharmacy picking tech rx, knows about the issue, PCP is out this afternoon. Pending Robitussin rx if wanted needs completed. Please advise documented in this encounter 04-19-2022 Miscellaneous Notes Addended by: DARIN ALONZO on: 04/19/2022 05:00 PM Modules accepted: Orders documented in this encounter 04-19-2022 History of Presen t illness Narrative [...] PRESCRIPTION COMPOUNDED PRESCRIPTION Aspirin 81 mg Tab Riqyvmfvzpkcs-Wzsmybyy-Inhzbz (CENTRUM SILVER) ORAL Tab Review of Systems [...] 2 diabetes mellitus without complication, unspecified whether half-way insulin use (HCC) - ICD9: 250.00, ICD10: E11.9 The patient has controlled diabetes mellitus, recently got it under control she is very proud of her self 3. Essential hypertension - ICD9: 401.9, ICD10: I10 Bp is well controlled. 4. Hyperlipidemia, unspecified hyperlipidemia type - ICD9: 272.4, ICD10: E78.5 Cont the statin medication. Darin Alonzo MD documented in this encounter 04-14-2022 Miscellaneous Notes Noted. Griselda Lema APRN.CNP [...] travel. No exposures. Protocols used: COUGH - GAFOZCV-IUYPC-XL documented in this encounter 04-11-2022 Miscellaneous Notes Patient has been identified [...] Kathia Swanson LPN documented in this encounter 03-23-2022 Miscellaneous Notes Patient returned call and [...] the next visit, documented in this encounter 03-21-2022 History of Presen t illness Narrative Reason for Visit Patient presents with: Established Patient: [facility] hospital follow up-dizziness/nausea Shannon Leija is a 81 year old female who presents here today for Above Complaints Health Maintenance DILATED RETINAL EXAM HPI 11 days ago patient was admitted at [facility]. She was taken to the ER first [...] PRESCRIPTION COMPOUNDED PRESCRIPTION Aspirin 81 mg Tab Ahjlxrdkadupn-Bzukvufl-Qafcsf (CENTRUM SILVER) ORAL Tab Review of Systems [...] Darin Alonzo MD documented in this encounter 03-18-2022 Miscellaneous Notes Patient notified. I sent [...] on Monday03/21/2022. Please review and advise, Sarina Swan RN documented in this encounter 03-15-2022 Miscellaneous Notes Patient has been identified [...] Jean Kaba RN documented in this encounter 03-10-2022 History of Presen t illness Narrative [...] mg Tab Take 81 mg by mouth. Iwvlndxozqubf-Epbriwee-Irzydh (CENTRUM SILVER) ORAL Tab Take 1 tablet [...] her to the ER. Report called to [facility]. Nakul Patino MD documented in this encounter 12-10-2021 Miscellaneous Notes Patient has been identified [...] Sarina Gomez LPN documented in this encounter 08-11-2014 History of Past i llness Narrative [...] of this encounter (statuses as of 12/10/2021) 12-01-2014 History of Past illness Narrative* Problem Noted [...] of this encounter (statuses as of 03/10/2022) 12-01-2014 History of Past illness Narrative* Problem Noted [...] of this encounter (statuses as of 03/18/2022) 12-01-2014 History of Past illness Narrative* Problem Noted [...] of this encounter (statuses as of 03/21/2022) 12-01-2014 History of Past illness Narrative* Problem Noted [...] of this encounter (statuses as of 03/23/2022) 12-01-2014 History of Past illness Narrative* Problem Noted [...] of this encounter (statuses as of 04/11/2022) 12-01-2014 History of Past illness Narrative* Problem Noted [...] of this encounter (statuses as of 04/13/2022) 12-01-2014 History of Past illness Narrative* Problem Noted [...] of this encounter (statuses as of 04/19/2022) 12-01-2014 History of Past illness Narrative* Problem Noted [...] of this encounter (statuses as of 04/21/2022) 12-01-2014 History of Past illness Narrative* Problem Noted [...] of this encounter (statuses as of 04/22/2022) 12-01-2014 History of Past illness Narrative* Problem Noted [...] of this encounter (statuses as of 05/09/2022) 12-01-2014 History of Past illness Narrative* Problem Noted [...] of this encounter (statuses as of 06/02/2022) 12-01-2014 History of Past illness Narrative* Problem Noted [...] of this encounter (statuses as of 06/15/2022) 12-01-2014 History of Past illness Narrative* Problem Noted [...] of this encounter (statuses as of 06/17/2022) 12-01-2014 History of Past illness Narrative* Problem Noted [...] of this encounter (statuses as of 2022) 12-01-2014 History of Past illness Narrative* Problem Noted [...] of this encounter (statuses as of 07/02/2022) 12-01-2014 History of Past illness Narrative* Problem Noted [...] of this encounter (statuses as of 07/15/2022) 12-01-2014 History of Past illness Narrative* Problem Noted [...] of this encounter (statuses as of 07/20/2022) 12-01-2014 History of Past illness Narrative* Problem Noted [...] of this encounter (statuses as of 07/21/2022) 12-01-2014 History of Past illness Narrative* Problem Noted [...] of this encounter (statuses as of 08/01/2022) 12-01-2014 History of Past illness Narrative* Problem Noted [...] of this encounter (statuses as of 08/19/2022) 12-01-2014 History of Past illness Narrative* Problem Noted [...] of this encounter (statuses as of 08/25/2022) 12-01-2014 History of Past illness Narrative* Problem Noted [...] of this encounter (statuses as of 08/25/2022) 12-01-2014 History of Past illness Narrative* Problem Noted [...] of this encounter (statuses as of 09/21/2022) 12-01-2014 History of Past illness Narrative* Problem Noted [...] of this encounter (statuses as of 11/01/2022) 12-01-2014 History of Past illness Narrative* Problem Noted [...] of this encounter (statuses as of 11/07/2022) 12-01-2014 History of Past illness Narrative* Problem Noted [...] of this encounter (statuses as of 11/10/2022) 12-01-2014 History of Past illness Narrative* Problem Noted [...] of this encounter (statuses as of 11/25/2022) 12-01-2014 History of Past illness Narrative* Problem Noted [...] of this encounter (statuses as of 11/25/2022) 12-01-2014 History of Past illness Narrative* Problem Noted [...] of this encounter (statuses as of 12/14/2022) 12-01-2014 History of Past illness Narrative* Problem Noted [...] of this encounter (statuses as of 02/16/2023) 12-01-2014 History of Past illness Narrative* Problem Noted [...] of this encounter (statuses as of 02/23/2023) 12-01-2014 History of Past illness Narrative* Problem Noted [...] of this encounter (statuses as of 02/27/2023) 12-01-2014 History of Past illness Narrative* Problem Noted [...] of this encounter (statuses as of 02/28/2023) 12-01-2014 History of Past illness Narrative* Problem Noted [...] of this encounter (statuses as of 03/01/2023) 12-01-2014 History of Past illness Narrative* Problem Noted [...] of this encounter (statuses as of 03/01/2023) 12-01-2014 History of Past illness Narrative* Problem Noted [...] of this encounter (statuses as of 04/13/2023) 12-01-2014 History of Past illness Narrative* Problem Noted [...] of this encounter (statuses as of 04/18/2023) 12-01-2014 History of Past illness Narrative* Problem Noted [...] of this encounter (statuses as of 05/19/2023) 12-01-2014 History of Past illness Narrative* Problem Noted [...] of this encounter (statuses as of 05/19/2023) 12-01-2014 History of Past illness Narrative* Problem Noted [...] of this encounter (statuses as of 05/30/2023) 12-01-2014 History of Past illness Narrative* Problem Noted [...] of this encounter (statuses as of 07/07/2023) 12-01-2014 History of Past illness Narrative* Problem Noted [...] of this encounter (statuses as of 07/15/2023) 12-01-2014 History of Past illness Narrative* Problem Noted [...] of this encounter (statuses as of 07/16/2023) 12-01-2014 History of Past illness Narrative* Problem Noted [...] of this encounter (statuses as of 08/01/2023) 12-01-2014 History of Past illness Narrative* Problem Noted [...] of this encounter (statuses as of 08/15/2023) 12-01-2014 History of Past illness Narrative* Problem Noted [...] of this encounter (statuses as of 09/01/2023) 12-01-2014 History of Past illness Narrative* Problem Noted [...] of this encounter (statuses as of 10/18/2023) 12-01-2014 History of Past illness Narrative* Problem Noted [...] of this encounter (statuses as of 10/30/2023) 12-01-2014 History of Past illness Narrative* Problem Noted [...] of this encounter (statuses as of 11/29/2023) 12-01-2014 History of Past illness Narrative* Problem Noted [...] of this encounter (statuses as of 12/04/2023) 12-01-2014 History of Past illness Narrative* Problem Noted [...] of this encounter (statuses as of 12/06/2023) 12-01-2014 History of Past illness Narrative* Problem Noted [...] of this encounter (statuses as of 12/15/2023) 12-01-2014 History of Past illness Narrative* Problem Noted [...] of this encounter (statuses as of 12/18/2023) 12-01-2014 History of Past illness Narrative* Problem Noted [...] of this encounter (statuses as of 12/18/2023) 12-01-2014 History of Past illness Narrative* Problem Noted [...] of this encounter (statuses as of 12/29/2023) [facility]No [facility]: [facility]* Diagnosis Dizziness- Primary Dizziness and giddiness Headache, unspecified headache type Nausea Nausea alone documented in this encounter [facility] note* Diagnosis Onset Date Resolution Status Carotid artery stenosis acut e Nausea acute Vertigo acute [facility] Work Phone: evaluation note* Diagnosis Acute cough- Primary Controlled type 2 diabetes mellitus without complication, without long-term current use of insulin ([facility]) Hospital discharge follow-up Other follow-up examination Vertigo Dizziness and giddiness documented in this encounter [facility] note* Diagnosis Chronic cough- Primary Cough Controlled type 2 diabetes mellitus without complication, unspecified whether half-way insulin use (HCC) Essential hypertension Unspecified essential hypertension Hyperlipidemia, unspecified hyperlipidemia type documented in this encounter [facility] note* Diagnosis Chronic cough- Primary Cough documented in this encounter [facility] note* Diagnosis Follicular bronchiolitis (HCC)- Primary Other chronic bronchitis Post-nasal drip Postnasal drip Gastroesophageal reflux disease without esophagitis Esophageal reflux [facility]* Diagnosis Suspected COVID-19 virus infection- Primary Sinobronchitis Unspecified sinusitis (chronic) documented in this encounter [facility]* Diagnosis Acute cough- Primary Post-nasal drip Postnasal drip documented in this encounter [facility]* Diagnosis Acute cough- Primary Follicular bronchiolitis (HCC) Other chronic bronchitis Gastroesophageal reflux disease without esophagitis Esophageal reflux documented in this encounter [facility]* Diagnosis Follicular bronchiolitis (HCC)- Primary Other chronic bronchitis Cough, unspecified type Gastroesophageal reflux disease without esophagitis Esophageal reflux Post-nasal drip Postnasal drip documented in this encounter [facility]* Diagnosis Controlled type 2 diabetes mellitus without complication, unspecified whether half-way insulin use (HCC)- Primary Acquired hypothyroidism Unspecified hypothyroidism Essential hypertension Unspecified essential hypertension Hyperlipidemia, unspecified hyperlipidemia type documented in this encounter [facility] note* Diagnosis Encounter for screening mammogram for malignant neoplasm of breast- Primary Other screening mammogram documented in this encounter [facility]* Diagnosis Essential hypertension- Primary Unspecified essential hypertension Hyperlipidemia, unspecified hyperlipidemia type Acquired hypothyroidism Unspecified hypothyroidism Controlled type 2 diabetes mellitus without complication, unspecified whether half-way insulin use (HCC) Follicular bronchiolitis (HCC) Other chronic bronchitis documented in this encounter [facility]* Diagnosis Hyperlipidemia, unspecified hyperlipidemia type documented in this encounter [facility]* Diagnosis Follicular bronchiolitis (HCC) Other chronic bronchitis documented in this encounter [facility]* Diagnosis Follicular bronchiolitis (HCC)- Primary Other chronic bronchitis Post-nasal drip Postnasal drip Gastroesophageal reflux disease, unspecified whether esophagitis present documented in this encounter [facility]* Diagnosis Essential hypertension- Primary Unspecified essential hypertension Uncontrolled hypertension Unspecified essential hypertension documented in this encounter [facility]* Diagnosis Essential hypertension- Primary Unspecified essential hypertension Tenderness of right hip Pain in joint, pelvic region and thigh Right thigh pain Pain in limb Right ankle instability Other joint derangement, not elsewhere classified, ankle and foot documented in this encounter [facility]* Diagnosis Controlled type 2 diabetes mellitus without complication, unspecified whether half-way insulin use (HCC)- Primary Essential hypertension Unspecified essential hypertension Hyperlipidemia, unspecified hyperlipidemia type Acquired hypothyroidism Unspecified hypothyroidism documented in this encounter [facility] note* Diagnosis Follicular bronchiolitis- Primary Other chronic bronchitis Upper airway cough syndrome Cough documented in this encounter [facility] note* Diagnosis Encounter for screening mammogram for malignant neoplasm of breast Other screening mammogram documented in this encounter [facility] note* Diagnosis Encounter for screening mammogram for malignant neoplasm of breast- Primary Other screening mammogram documented in this encounter [facility] note* Diagnosis Follicular bronchiolitis (HCC)- Primary Other chronic bronchitis Chronic cough Cough Postnasal drip documented in this encounter [facility] note* Diagnosis Hyperlipidemia, unspecified hyperlipidemia type documented in this encounter [facility] note* Diagnosis Follicular bronchiolitis (HCC) Other chronic bronchitis Chronic cough Cough documented in this encounter [facility] note* Diagnosis Controlled type 2 diabetes mellitus without complication, unspecified whether intermediate frame tender insulin use (HCC)- Primary Essential hypertension Unspecified essential hypertension Acquired hypothyroidism Unspecified hypothyroidism Dizziness Dizziness and giddiness documented in this encounter [facility] note* Diagnosis Medication management- Primary Encounter for long-term (current) use of other medications Dizziness Dizziness and giddiness Acquired hypothyroidism Unspecified hypothyroidism documented in this encounter [facility] note* Diagnosis Elbow wound, left, initial encounter- Primary documented in this encounter [facility] note* Diagnosis Controlled type 2 diabetes mellitus without complication, unspecified whether half-way insulin use (HCC)- Primary Hyperlipidemia, unspecified hyperlipidemia type Essential hypertension Unspecified essential hypertension Gastroesophageal reflux disease without esophagitis Esophageal reflux Grief Adjustment disorder with depressed mood Acquired hypothyroidism Unspecified hypothyroidism Follicular bronchiolitis (HCC) Other chronic bronchitis documented in this encounter [facility] note* Diagnosis Knee injury, right, initial encounter- Primary Controlled type 2 diabetes mellitus without complication, unspecified intermediate frame tender insulin use status Essential hypertension Unspecified essential hypertension Acquired hypothyroidism Unspecified hypothyroidism Controlled type 2 diabetes mellitus without complication, unspecified intermediate frame tender insulin use status- Primary Essential hypertension Unspecified essential hypertension Acquired hypothyroidism Unspecified hypothyroidism Cough Bronchitis Bronchitis, not specified as acute or chronic Controlled type 2 diabetes mellitus without complication, unspecified whether intermediate frame tender insulin use (HCC)- Primary documented in this encounter [facility] note* Diagnosis Knee injury, right, initial encounter- Primary Controlled type 2 diabetes mellitus without complication, unspecified intermediate frame tender insulin use status Essential hypertension Unspecified essential hypertension Acquired hypothyroidism Unspecified hypothyroidism Controlled type 2 diabetes mellitus without complication, unspecified half-way insulin use status- Primary Essential hypertension Unspecified essential hypertension Acquired hypothyroidism Unspecified hypothyroidism Cough Bronchitis Bronchitis, not specified as acute or chronic Tenderness of right hip Pain in joint, pelvic region and thigh Right thigh pain Pain in limb Right ankle instability Other joint derangement, not elsewhere classified, ankle and foot documented in this encounter [facility] note* Diagnosis Knee injury, right, initial encounter- Primary Controlled type 2 diabetes mellitus without complication, unspecified intermediate frame tender insulin use status Essential hypertension Unspecified essential hypertension Acquired hypothyroidism Unspecified hypothyroidism Controlled type 2 diabetes mellitus without complication, unspecified half-way insulin use status- Primary Essential hypertension Unspecified essential hypertension Acquired hypothyroidism Unspecified hypothyroidism Cough Bronchitis Bronchitis, not specified as acute or chronic Follicular bronchiolitis (HCC) Other chronic bronchitis documented in this encounter [facility] note* Diagnosis Knee injury, right, initial encounter- Primary Controlled type 2 diabetes mellitus without complication, unspecified intermediate frame tender insulin use status Essential hypertension Unspecified essential hypertension Acquired hypothyroidism Unspecified hypothyroidism Controlled type 2 diabetes mellitus without complication, unspecified intermediate frame tender insulin use status- Primary Essential hypertension Unspecified essential hypertension Acquired hypothyroidism Unspecified hypothyroidism Cough Bronchitis Bronchitis, not specified as acute or chronic Acute cough documented in this encounter [facility] note* Diagnosis Knee injury, right, initial encounter- Primary Controlled type 2 diabetes mellitus without complication, unspecified half-way insulin use status Essential hypertension Unspecified essential hypertension Acquired hypothyroidism Unspecified hypothyroidism Controlled type 2 diabetes mellitus without complication, unspecified intermediate frame tender insulin use status- Primary Essential hypertension Unspecified essential hypertension Acquired hypothyroidism Unspecified hypothyroidism Cough Bronchitis Bronchitis, not specified as acute or chronic Chronic cough- Primary Cough Follicular bronchiolitis (HCC) Other chronic bronchitis Pulmonary air trapping PND (post-nasal drip) Postnasal drip Cardiac murmur Undiagnosed cardiac murmurs documented in this encounter [facility] note* Diagnosis Knee injury, right, initial encounter- Primary Controlled type 2 diabetes mellitus without complication, unspecified half-way insulin use status Essential hypertension Unspecified essential hypertension Acquired hypothyroidism Unspecified hypothyroidism Controlled type 2 diabetes mellitus without complication, unspecified intermediate frame tender insulin use status- Primary Essential hypertension Unspecified essential hypertension Acquired hypothyroidism Unspecified hypothyroidism Cough Bronchitis Bronchitis, not specified as acute or chronic Controlled type 2 diabetes mellitus without complication, unspecified whether half-way insulin use (HCC)- Primary Essential hypertension Unspecified essential hypertension Hyperlipidemia, unspecified hyperlipidemia type Acquired hypothyroidism Unspecified hypothyroidism Medication management Encounter for long-term (current) use of other medications documented in this encounter [facility] note* Diagnosis Knee injury, right, initial encounter- Primary Controlled type 2 diabetes mellitus without complication, unspecified intermediate frame tender insulin use status Essential hypertension Unspecified essential hypertension Acquired hypothyroidism Unspecified hypothyroidism Controlled type 2 diabetes mellitus without complication, unspecified half-way insulin use status- Primary Essential hypertension Unspecified essential hypertension Acquired hypothyroidism Unspecified hypothyroidism Cough Bronchitis Bronchitis, not specified as acute or chronic Acquired hypothyroidism- Primary Unspecified hypothyroidism Medication management Encounter for long-term (current) use of other medications documented in this encounter [facility] note* Diagnosis Knee injury, right, initial encounter- Primary Controlled type 2 diabetes mellitus without complication, unspecified intermediate frame tender insulin use status Essential hypertension Unspecified essential hypertension Acquired hypothyroidism Unspecified hypothyroidism Controlled type 2 diabetes mellitus without complication, unspecified half-way insulin use status- Primary Essential hypertension Unspecified essential hypertension Acquired hypothyroidism Unspecified hypothyroidism Cough Bronchitis Bronchitis, not specified as acute or chronic Encounter for screening mammogram for breast cancer- Primary documented in this encounter [facility] note* Diagnosis Knee injury, right, initial encounter- Primary Controlled type 2 diabetes mellitus without complication, unspecified intermediate frame tender insulin use status Essential hypertension Unspecified essential hypertension Acquired hypothyroidism Unspecified hypothyroidism Controlled type 2 diabetes mellitus without complication, unspecified intermediate frame tender insulin use status- Primary Essential hypertension Unspecified essential hypertension Acquired hypothyroidism Unspecified hypothyroidism Cough Bronchitis Bronchitis, not specified as acute or chronic Encounter for screening mammogram for breast cancer documented in this encounter [facility] note* Diagnosis Knee injury, right, initial encounter- Primary Controlled type 2 diabetes mellitus without complication, unspecified intermediate frame tender insulin use status Essential hypertension Unspecified essential hypertension Acquired hypothyroidism Unspecified hypothyroidism Controlled type 2 diabetes mellitus without complication, unspecified intermediate frame tender insulin use status- Primary Essential hypertension Unspecified essential hypertension Acquired hypothyroidism Unspecified hypothyroidism Cough Bronchitis Bronchitis, not specified as acute or chronic Controlled type 2 diabetes mellitus without complication, unspecified whether half-way insulin use (HCC)- Primary Essential hypertension Unspecified essential hypertension Grief Adjustment disorder with depressed mood Acquired hypothyroidism Unspecified hypothyroidism documented in this encounter [facility] note* Diagnosis Knee injury, right, initial encounter- Primary Controlled type 2 diabetes mellitus without complication, unspecified half-way insulin use status Essential hypertension Unspecified essential hypertension Acquired hypothyroidism Unspecified hypothyroidism Controlled type 2 diabetes mellitus without complication, unspecified intermediate frame tender insulin use status- Primary Essential hypertension Unspecified essential hypertension Acquired hypothyroidism Unspecified hypothyroidism Cough Bronchitis Bronchitis, not specified as acute or chronic Chronic cough- Primary Cough Follicular bronchiolitis (HCC) Other chronic bronchitis Pulmonary air trapping Post-nasal drip Postnasal drip Gastroesophageal reflux disease without esophagitis Esophageal reflux documented [facility] this encounter [facility]* Diagnosis Knee injury, right, initial encounter- Primary Controlled type 2 diabetes mellitus without complication, unspecified intermediate frame tender insulin use status Essential hypertension Unspecified essential hypertension Acquired hypothyroidism Unspecified hypothyroidism Controlled type 2 diabetes mellitus without complication, unspecified intermediate frame tender insulin use status- Primary Essential hypertension Unspecified essential hypertension Acquired hypothyroidism Unspecified hypothyroidism Cough Bronchitis Bronchitis, not specified as acute or chronic Essential hypertension- Primary Unspecified essential hypertension Controlled type 2 diabetes mellitus without complication, unspecified whether half-way insulin use (HCC) Muscle cramps Cramp of limb Insomnia, unspecified type Anxiety and depression Dysthymic disorder Grief Adjustment disorder with depressed mood Acquired hypothyroidism Unspecified hypothyroidism Gastroesophageal reflux disease without esophagitis Esophageal reflux Hyperlipidemia, unspecified hyperlipidemia type Abnormal color of lips Diseases of lips documented in this encounter [facility]* Diagnosis Knee injury, right, initial encounter- Primary Controlled type 2 diabetes mellitus without complication, unspecified intermediate frame tender insulin use status Essential hypertension Unspecified essential hypertension Acquired hypothyroidism Unspecified hypothyroidism Controlled type 2 diabetes mellitus without complication, unspecified intermediate frame tender insulin use status- Primary Essential hypertension Unspecified essential hypertension Acquired hypothyroidism Unspecified hypothyroidism Cough Bronchitis Bronchitis, not specified as acute or chronic Hypomagnesemia- Primary Disorders of magnesium metabolism documented in this encounter [facility] note* Diagnosis Knee injury, right, initial encounter- Primary Controlled type 2 diabetes mellitus without complication, unspecified intermediate frame tender insulin use status Essential hypertension Unspecified essential hypertension Acquired hypothyroidism Unspecified hypothyroidism Controlled type 2 diabetes mellitus without complication, unspecified half-way insulin use status- Primary Essential hypertension Unspecified essential hypertension Acquired hypothyroidism Unspecified hypothyroidism Cough Bronchitis Bronchitis, not specified as acute or chronic Muscle cramps- Primary Cramp of limb Hypomagnesemia Disorders of magnesium metabolism Gastroesophageal reflux disease without esophagitis Esophageal reflux Acute cough Insomnia, unspecified type documented in this encounter [facility] note* Diagnosis Knee injury, right, initial encounter- Primary Controlled type 2 diabetes mellitus without complication, unspecified intermediate frame tender insulin use status Essential hypertension Unspecified essential hypertension Acquired hypothyroidism Unspecified hypothyroidism Controlled type 2 diabetes mellitus without complication, unspecified intermediate frame tender insulin use status- Primary Essential hypertension Unspecified [...] 2 diabetes mellitus without complication, unspecified whether half-way insulin use (HCC) documented in this encounter Evaluation note* Diagnosis Onset Date Resolution Status Admit Date Bilateral carotid artery disease acu te April 13, 2025 1:15am Gait difficulty acute April 1:15am Hyponatremia acute April 13, 2025 1:15am Nausea and vomiting acute Augus 2024 1:15am Overweight (BMI 25.0-29.9) acute April 13, 2025 1:15am Vertigo acute April 13 1:15am [facility] Work Phone: Reason for referral (narrative)* Outpatient Procedure (Routine) - Authorized Specialty Diagnoses / Procedures Referred By Gilbert wood Referred To [facility] Diagnoses Follicular bronchiolitis (HCC) Procedures SPIROMETRY WITH DILATOR IF OBSTRUCTED BRNCDILAT RSPSE SPMTRY PRE&POST-BRNCDILAT Pamela Meade MD [address] [place] [address] [facility] [place] [address] [place] [id number] Referral ID Status Reason Start Date Expiration Date Visits Requested Visits Authorized [id number] Authorized Auto-Generat ed Referral 05/09/2022 06/08/2023 1 1 [facility] for referral (narrative)* Diagnostic Procedure Only (Routine) - Closed Specialty Diagnoses / Procedures Referred By Gilbert wood Referred To Contact [facility] Diagnoses Encounter for screening mammogram for malignant neoplasm of breast Procedures MADISON SCREENING SCREENING MAMMOGRAPHY BI 2-VIEW BREAST INC Griselda Andrea APRN.GAMER [address] [place] [address] [facility] [address] [place] [address] Referral ID Status Reason Start Date Expiration Date V isits Requested Visits Authorized [id number] Closed Auto-Generate d Referral 07/28/2022 08/27/2023 1 1 [facility] for referral (narrative)* Diagnostic Procedure Only (Routine) - Closed Specialty Diagnoses / Procedures Referred By Contac t Referred To Contact [facility] Diagnoses Encounter for screening mammogram for malignant neoplasm of breast Procedures MADISON SCREENING SCREENING MAMMOGRAPHY BI 2-VIEW BREAST INC CAD Griselda Lema APRN.GAMER [address] [place] [address] [facility] [address] [place] [address] Referral ID Status Reason Start Date Expiration Date V isits Requested Visits Authorized [id number] Closed Auto-Generate d Referral 07/28/2022 08/27/2023 1 1 [facility] for referral (narrative)* Diagnostic Procedure Only (Routine) - Pending Review Specialty Diagnoses / Procedures Referred By Contac t Referred To Contact [facility] Diagnoses Encounter for screening mammogram for malignant neoplasm of breast Procedures MADISON SCREENING SCREENING MAMMOGRAPHY BI 2-VIEW BREAST INC CAD Bouchra Lema APRN.GAMER [address] [place] [address] [facility] [address] [place] [address] Referral ID Status Reason Start Date Expiration Date Visits Requested Visits Authorized [id number] Pending Review Auto-Generat ed Referral 08/30/2024 1 1 [facility] for referral (narrative)* Diagnostic Procedure Only (Routine) - Closed Specialty Diagnoses / Procedures Referred By Contac t Referred To Contact XR IMAGING Diagnoses Right ankle instability Procedures XR ANKLE GENERAL 3V AP/LAT/OBL RIGHT RADEX ANKLE COMPLETE MINIMUM 3 VIEWS Griselda Lema APRN.GAMER [address] [place] [address] [place] [address] Referral ID Status Reason Start Date Expiration Date V isits Requested Visits Authorized [id number] Closed Auto-Generate d Referral 04/10/2023 05/09/2024 1 1 * Diagnostic Procedure Only (Routine) - Closed Specialty Diagnoses / Procedures Referred By Contac t Referred To Contact XR IMAGING Diagnoses Tenderness of right hip Right thigh pain Procedures XR HIP GENERAL 3V PELV/AP/LAT RIGHT RADEX HIP UNILATERAL WITH PELVIS 2-3 VIEWS Griselda Lema APRN.GAMER [address] [place] [address] [place] [address] Referral ID Status Reason Start Date Expiration Date V isits Requested Visits Authorized [id number] Closed Auto-Generate d Referral 04/10/2023 05/09/2024 1 1 [facility] for referral (narrative)* Diagnostic Procedure Only (Routine) - Authorized Specialty Diagnoses / Procedures Referred By Gilbert t Referred To Contact [facility] Diagnoses Encounter for screening mammogram for breast cancer Procedures MADISON SCREENING SCREENING MAMMOGRAPHY BI 2-VIEW BREAST INC Darin Bazzi MD [address] [place] [address] [facility] [address] [place] [address] Referral ID Status Reason Start Date Expiration Date Visits Requested Visits Authorized [id number] Authorized Auto-Generat ed Referral 09/05/2025 1 1 [facility] for referral (narrative)* Diagnostic Procedure Only (Routine) - Closed Specialty Diagnoses / Procedures Referred By Gilbert t Referred To Contact [facility] Diagnoses Encounter for screening mammogram for breast cancer Procedures MADISON SCREENING SCREENING MAMMOGRAPHY BI 2-VIEW BREAST INC Darin Bazzi MD [address] [place] [address] [facility] [address] [place] [address] Referral ID Status Reason Start Date Expiration Date V isits Requested Visits Authorized [id number] Closed Auto-Generate d Referral 08/06/2024 09/05/2025 1 1 [facility] for referral (narrative)No reason for [facility] Reason for visit Narrative* Diagnostic Procedure Only (Routine) - Closed Specialty Diagnoses / Procedures Referred By Contac t Referred To Contact [facility] Diagnoses Encounter for screening mammogram for malignant neoplasm of breast Procedures MADISON SCREENING SCREENING MAMMOGRAPHY BI 2-VIEW BREAST INC CAD Griselda Lema, AIRCRAFT CLEANER.GAMER [address] [place] [id number] [facility] [address] [place] [address] Referral ID Status Reason Start Date Expiration Date V isits Requested Visits Authorized [id number] Closed Auto-Generate d Referral 07/28/2022 08/27/2023 1 1 [facility] for visit Narrative* Diagnostic Procedure Only (Routine) - Closed Specialty Diagnoses / Procedures Referred By Contac t Referred To Contact XR IMAGING Diagnoses Right ankle instability Procedures XR ANKLE GENERAL 3V AP/LAT/OBL RIGHT RADEX ANKLE COMPLETE MINIMUM 3 VIEWS Griselda Lema, AIRCRAFT CLEANER.GAMER [address] [place] [address] [place] [address] Referral ID Status Reason Start Date Expiration Date V isits Requested Visits Authorized [id number] Closed Auto-Generate d Referral 04/10/2023 05/09/2024 1 1 [facility] for visit Narrative* Diagnostic Procedure Only (Routine) - Closed Specialty Diagnoses / Procedures Referred By Contac t Referred To Contact [facility] Diagnoses Encounter for screening mammogram for breast cancer Procedures MADISON SCREENING SCREENING MAMMOGRAPHY BI 2-VIEW BREAST INC CAD Darin Alonzo MD [address] [place] [address] [facility] [address] [place] [address] Referral ID Status Reason Start Date Expiration Date V isits Requested Visits Authorized [id number] Closed Auto-Generate d Referral 08/06/2024 09/05/2025 1 1 Summary Purpose Family History Relationship Condition Age at Onset Recorded Date/T farhad Not Specified Diabetes mellitus Unknown Hypertension Unknown Advance Directives Documents on File Type Date Recorded Patient 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 Expl 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 Advance Directive(s) 10/27/2017 10:28 AM Advance Directive(s) 10/19/2017 8:19 AM Advance Directive(s) 06/06/2007 12:00 AM Advance Directive Response Recorded Date/ Time Living Will Yes March 10, 2022 3:42pm Power of Machine Adjuster Leader Yes March 10 3:42pm Name of Medical Power of Machine Adjuster Leader Reymundo March 10, 2022 3:42pm Advance Directive Response Recorded Date/ Time Name of Medical Power of Machine Adjuster Leader Ambrocio Leija March 10, 2022 5:11pm Living Will Yes March 10, 2022 5:11pm Power of Machine Adjuster Leader Yes March 10 5:11pm Documents on File Type Date Recorded Patient 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 No April 12, 2025 10:13pm Chief Complaint and Reason for Visit Chief Complaint DIZZINESS Chief Complaint DIZZINESS Dizziness (cardiology) Dizziness (cardiology) Reason for Visit Carotid artery steno sis Nausea Vertigo Chief Complaint CAROTID STENOSIS Chief Complaint CAROTID STENOSIS 1 Y FU TYPE 2 DM Chief Complaint CAROTID STENOSIS 1 Y FU TYPE 2 DM TYPE 2 DM Chief Complaint Admit Date SYMPTOMATIC VERTIGO April 13, 2025 1:1 5am Reason for Visit Admit Date Bilateral carotid artery disease April 13, 2025 1:15am Gait difficulty April 13, 2025 1:1 5am Hyponatremia April 13, 2025 1:1 5am Nausea and vomiting April 13, 2025 1:1 5am Overweight (BMI 25.0-29.9) April 13 1:15am Vertigo April 13, 2025 1:1 5am Reason for Referral Specialty Diagnoses / Procedures Referred By Contac t Referred To Contact Orthopedics Diagnoses Tenderness of right hip Right thigh pain Right ankle instability Procedures CONSULT TO ORTHOPAEDICS OFFICE/OUTPATIENT [facility] 60-74 MINUTES Griselda Lema APRN.GAMER [address] [place] [address] Referral ID Status Reason Start Date Expiration Date Visits Requested Visits Authorized [id number] Authorized PCP Requested Referral 04/10/2023 04/09/2024 1 1 Specialty Diagnoses / Procedures Referred By Contac t Referred To Contact XR IMAGING Diagnoses Right ankle instability Procedures XR ANKLE GENERAL 3V AP/LAT/OBL RIGHT RADEX ANKLE COMPLETE MINIMUM 3 VIEWS Griselda Lema APRN.GAMER [address] [place] [address] X[facility] Referral ID Status Reason Start Date Expiration Date V isits Requested Visits Authorized [id number] Closed Auto-Generate d Referral 04/10/2023 05/09/2024 1 1 Specialty Diagnoses / Procedures Referred By Contac t Referred To Contact XR IMAGING Diagnoses Tenderness of right hip Right thigh pain Procedures XR HIP GENERAL 3V PELV/AP/LAT RIGHT RADEX HIP UNILATERAL WITH PELVIS 2-3 VIEWS Griselda Lema APRN.GAMER [address] [place] [address] X[facility] Imaging Referral ID Status Reason Start Date Expiration Date V isits Requested Visits Authorized [id number] Closed Auto-Generate d Referral 04/10/2023 05/09/2024 1 1 Specialty Diagnoses / Procedures Referred By Contac t Referred To Contact CT IMAGING Diagnoses 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) Chronic cough Procedures CT CHEST WO IVCON DIAGNOSTIC COMPUTED TOMOGRAPHY THORAX W/O Pamela Riddle MD [address] [place] [address] [place] [address] Referral ID Status Reason Start Date Expiration Date Visits Requested Visits Authorized [id number] Authorized Auto-Generat ed Referral 11/28/2023 12/27/2024 1 1 Additional Source Comments INFORMATION SOURCE (unrecogn ized section and content) DATE CREATED AUTHOR 03/15/2018 [facility] DATE CREATED AUTHOR AUTHOR'S ORGANIZ ATION 11/07/2024 [facility] DATE CREATED AUTHOR AUTHOR'S ORGANIZ ATION 04/13/2025 [facility] Source Comments (unrecognize d section and content) In the event this informatio n is protected by the Federal Confidentiality of Alcohol and Drug Abuse Patient Records regulations: The Federal rules restrict any use of the information to criminally investigate or prosecute any alcohol or drug abuse patient.In the event this information is protected by the Federal Confidentiality of Alcohol and Drug Abuse Patient Records regulations: The Federal rules restrict any use of the information to criminally investigate or prosecute any alcohol or drug abuse patient.In the event this information is protected by the Federal Confidentiality of Alcohol and Drug Abuse Patient Records regulations: The Federal rules restrict any use of the information to criminally investigate or prosecute any alcohol or drug abuse patient.In the event this information is protected by the Federal Confidentiality of Alcohol and Drug Abuse Patient Records regulations: The Federal rules restrict any use of the information to criminally investigate or prosecute any alcohol or drug abuse patient.In the event this information is protected by the Federal Confidentiality of Alcohol and Drug Abuse Patient Records regulations: The Federal rules restrict any use of the information to criminally investigate or prosecute any alcohol or drug abuse patient.In the event this information is protected by the Federal Confidentiality of Alcohol and Drug Abuse Patient Records regulations: The Federal rules restrict any use of the information to criminally investigate or prosecute any alcohol or drug abuse patient.In the event this information is protected by the Federal Confidentiality of Alcohol and Drug Abuse Patient Records regulations: The Federal rules restrict any use of the information to criminally investigate or prosecute any alcohol or drug abuse patient.In the event this information is protected by the Federal Confidentiality of Alcohol and Drug Abuse Patient Records regulations: The Federal rules restrict any use of the information to criminally investigate or prosecute any alcohol or drug abuse patient.In the event this information is protected by the Federal Confidentiality of Alcohol and Drug Abuse Patient Records regulations: The Federal rules restrict any use of the information to criminally investigate or prosecute any alcohol or drug abuse patient.In the event this information is protected by the Federal Confidentiality of Alcohol and Drug Abuse Patient Records regulations: The Federal rules restrict any use of the information to criminally investigate or prosecute any alcohol or drug abuse patient.In the event this information is protected by the Federal Confidentiality of Alcohol and Drug Abuse Patient Records regulations: The Federal rules restrict any use of the information to criminally investigate or prosecute any alcohol or drug abuse patient.In the event this information is protected by the Federal Confidentiality of Alcohol and Drug Abuse Patient Records regulations: The Federal rules restrict any use of the information to criminally investigate or prosecute any alcohol or drug abuse patient.In the event this information is protected by the Federal Confidentiality of Alcohol and Drug Abuse Patient Records regulations: The Federal rules restrict any use of the information to criminally investigate or prosecute any alcohol or drug abuse patient.In the event this information is protected by the Federal Confidentiality of Alcohol and Drug Abuse Patient Records regulations: The Federal rules restrict any use of the information to criminally investigate or prosecute any alcohol or drug abuse patient.In the event this information is protected by the Federal Confidentiality of Alcohol and Drug Abuse Patient Records regulations: The Federal rules restrict any use of the information to criminally investigate or prosecute any alcohol or drug abuse patient.In the event this information is protected by the Federal Confidentiality of Alcohol and Drug Abuse Patient Records regulations: The Federal rules restrict any use of the information to criminally investigate or prosecute any alcohol or drug abuse patient.In the event this information is protected by the Federal Confidentiality of Alcohol and Drug Abuse Patient Records regulations: The Federal rules restrict any use of the information to criminally investigate or prosecute any alcohol or drug abuse patient.In the event this information is protected by the Federal Confidentiality of Alcohol and Drug Abuse Patient Records regulations: The Federal rules restrict any use of the information to criminally investigate or prosecute any alcohol or drug abuse patient.In the event this information is protected by the Federal Confidentiality of Alcohol and Drug Abuse Patient Records regulations: The Federal rules restrict any use of the information to criminally investigate or prosecute any alcohol or drug abuse patient.In the event this information is protected by the Federal Confidentiality of Alcohol and Drug Abuse Patient Records regulations: The Federal rules restrict any use of the information to criminally investigate or prosecute any alcohol or drug abuse patient.In the event this information is protected by the Federal Confidentiality of Alcohol and Drug Abuse Patient Records regulations: The Federal rules restrict any use of the information to criminally investigate or prosecute any alcohol or drug abuse patient.In the event this information is protected by the Federal Confidentiality of Alcohol and Drug Abuse Patient Records regulations: The Federal rules restrict any use of the information to criminally investigate or prosecute any alcohol or drug abuse patient.In the event this information is protected by the Federal Confidentiality of Alcohol and Drug Abuse Patient Records regulations: The Federal rules restrict any use of the information to criminally investigate or prosecute any alcohol or drug abuse patient.In the event this information is protected by the Federal Confidentiality of Alcohol and Drug Abuse Patient Records regulations: The Federal rules restrict any use of the information to criminally investigate or prosecute any alcohol or drug abuse patient.In the event this information is protected by the Federal Confidentiality of Alcohol and Drug Abuse Patient Records regulations: The Federal rules restrict any use of the information to criminally investigate or prosecute any alcohol or drug abuse patient.In the event this information is protected by the Federal Confidentiality of Alcohol and Drug Abuse Patient Records regulations: The Federal rules restrict any use of the information to criminally investigate or prosecute any alcohol or drug abuse patient.In the event this information is protected by the Federal Confidentiality of Alcohol and Drug Abuse Patient Records regulations: The Federal rules restrict any use of the information to criminally investigate or prosecute any alcohol or drug abuse patient.In the event this information is protected by the Federal Confidentiality of Alcohol and Drug Abuse Patient Records regulations: The Federal rules restrict any use of the information to criminally investigate or prosecute any alcohol or drug abuse patient.In the event this information is protected by the Federal Confidentiality of Alcohol and Drug Abuse Patient Records regulations: The Federal rules restrict any use of the information to criminally investigate or prosecute any alcohol or drug abuse patient.In the event this information is protected by the Federal Confidentiality of Alcohol and Drug Abuse Patient Records regulations: The Federal rules restrict any use of the information to criminally investigate or prosecute any alcohol or drug abuse patient.In the event this information is protected by the Federal Confidentiality of Alcohol and Drug Abuse Patient Records regulations: The Federal rules restrict any use of the information to criminally investigate or prosecute any alcohol or drug abuse patient.In the event this information is protected by the Federal Confidentiality of Alcohol and Drug Abuse Patient Records regulations: The Federal rules restrict any use of the information to criminally investigate or prosecute any alcohol or drug abuse patient.In the event this information is protected by the Federal Confidentiality of Alcohol and Drug Abuse Patient Records regulations: The Federal rules restrict any use of the information to criminally investigate or prosecute any alcohol or drug abuse patient.In the event this information is protected by the Federal Confidentiality of Alcohol and Drug Abuse Patient Records regulations: The Federal rules restrict any use of the information to criminally investigate or prosecute any alcohol or drug abuse patient.In the event this information is protected by the Federal Confidentiality of Alcohol and Drug Abuse Patient Records regulations: The Federal rules restrict any use of the information to criminally investigate or prosecute any alcohol or drug abuse patient.In the event this information is protected by the Federal Confidentiality of Alcohol and Drug Abuse Patient Records regulations: The Federal rules restrict any use of the information to criminally investigate or prosecute any alcohol or drug abuse patient.In the event this information is protected by the Federal Confidentiality of Alcohol and Drug Abuse Patient Records regulations: The Federal rules restrict any use of the information to criminally investigate or prosecute any alcohol or drug abuse patient.In the event this information is protected by the Federal Confidentiality of Alcohol and Drug Abuse Patient Records regulations: The Federal rules restrict any use of the information to criminally investigate or prosecute any alcohol or drug abuse patient.In the event this information is protected by the Federal Confidentiality of Alcohol and Drug Abuse Patient Records regulations: The Federal rules restrict any use of the information to criminally investigate or prosecute any alcohol or drug abuse patient.In the event this information is protected by the Federal Confidentiality of Alcohol and Drug Abuse Patient Records regulations: The Federal rules restrict any use of the information to criminally investigate or prosecute any alcohol or drug abuse patient.In the event this information is protected by the Federal Confidentiality of Alcohol and Drug Abuse Patient Records regulations: The Federal rules restrict any use of the information to criminally investigate or prosecute any alcohol or drug abuse patient.In the event this information is protected by the Federal Confidentiality of Alcohol and Drug Abuse Patient Records regulations: The Federal rules restrict any use of the information to criminally investigate or prosecute any alcohol or drug abuse patient.In the event this information is protected by the Federal Confidentiality of Alcohol and Drug Abuse Patient Records regulations: The Federal rules restrict any use of the information to criminally investigate or prosecute any alcohol or drug abuse patient.In the event this information is protected by the Federal Confidentiality of Alcohol and Drug Abuse Patient Records regulations: The Federal rules restrict any use of the information to criminally investigate or prosecute any alcohol or drug abuse patient.In the event this information is protected by the Federal Confidentiality of Alcohol and Drug Abuse Patient Records regulations: The Federal rules restrict any use of the information to criminally investigate or prosecute any alcohol or drug abuse patient.In the event this information is protected by the Federal Confidentiality of Alcohol and Drug Abuse Patient Records regulations: The Federal rules restrict any use of the information to criminally investigate or prosecute any alcohol or drug abuse patient.In the event this information is protected by the Federal Confidentiality of Alcohol and Drug Abuse Patient Records regulations: The Federal rules restrict any use of the information to criminally investigate or prosecute any alcohol or drug abuse patient.In the event this information is protected by the Federal Confidentiality of Alcohol and Drug Abuse Patient Records regulations: The Federal rules restrict any use of the information to criminally investigate or prosecute any alcohol or drug abuse patient.In the event this information is protected by the Federal Confidentiality of Alcohol and Drug Abuse Patient Records regulations: The Federal rules restrict any use of the information to criminally investigate or prosecute any alcohol or drug abuse patient.In the event this information is protected by the Federal Confidentiality of Alcohol and Drug Abuse Patient Records regulations: The Federal rules restrict any use of the information to criminally investigate or prosecute any alcohol or drug abuse patient.In the event this information is protected by the Federal Confidentiality of Alcohol and Drug Abuse Patient Records regulations: The Federal rules restrict any use of the information to criminally investigate or prosecute any alcohol or drug abuse patient.In the event this information is protected by the Federal Confidentiality of Alcohol and Drug Abuse Patient Records regulations: The Federal rules restrict any use of the information to criminally investigate or prosecute any alcohol or drug abuse patient.In the event this information is protected by the Federal Confidentiality of Alcohol and Drug Abuse Patient Records regulations: The Federal rules restrict any use of the information to criminally investigate or prosecute any alcohol or drug abuse patient.In the event this information is protected by the Federal Confidentiality of Alcohol and Drug Abuse Patient Records regulations: The Federal rules restrict any use of the information to criminally investigate or prosecute any alcohol or drug abuse patient.In the event this information is protected by the Federal Confidentiality of Alcohol and Drug Abuse Patient Records regulations: The Federal rules restrict any use of the information to criminally investigate or prosecute any alcohol or drug abuse patient.In the event this information is protected by the Federal Confidentiality of Alcohol and Drug Abuse Patient Records regulations: The Federal rules restrict any use of the information to criminally investigate or prosecute any alcohol or drug abuse patient.In the event this information is protected by the Federal Confidentiality of Alcohol and Drug Abuse Patient Records regulations: The Federal rules restrict any use of the information to criminally investigate or prosecute any alcohol or drug abuse patient.In the event this information is protected by the Federal Confidentiality of Alcohol and Drug Abuse Patient Records regulations: The Federal rules restrict any use of the information to criminally investigate or prosecute any alcohol or drug abuse patient.In the event this information is protected by the Federal Confidentiality of Alcohol and Drug Abuse Patient Records regulations: The Federal rules restrict any use of the information to criminally investigate or prosecute any alcohol or drug abuse patient.In the event this information is protected by the Federal Confidentiality of Alcohol and Drug Abuse Patient Records regulations: The Federal rules restrict any use of the information to criminally investigate or prosecute any alcohol or drug abuse patient.In the event this information is protected by the Federal Confidentiality of Alcohol and Drug Abuse Patient Records regulations: The Federal rules restrict any use of the information to criminally investigate or prosecute any alcohol or drug abuse patient.In the event this information is protected by the Federal Confidentiality of Alcohol and Drug Abuse Patient Records regulations: The Federal rules restrict any use of the information to criminally investigate or prosecute any alcohol or drug abuse patient.In the event this information is protected by the Federal Confidentiality of Alcohol and Drug Abuse Patient Records regulations: The Federal rules restrict any use of the information to criminally investigate or prosecute any alcohol or drug abuse patient.In the event this information is protected by the Federal Confidentiality of Alcohol and Drug Abuse Patient Records regulations: The Federal rules restrict any use of the information to criminally investigate or prosecute any alcohol or drug abuse patient.In the event this information is protected by the Federal Confidentiality of Alcohol and Drug Abuse Patient Records regulations: The Federal rules restrict any use of the information to criminally investigate or prosecute any alcohol or drug abuse patient.In the event this information is protected by the Federal Confidentiality of Alcohol and Drug Abuse Patient Records regulations: The Federal rules restrict any use of the information to criminally investigate or prosecute any alcohol or drug abuse patient.In the event this information is protected by the Federal Confidentiality of Alcohol and Drug Abuse Patient Records regulations: The Federal rules restrict any use of the information to criminally investigate or prosecute any alcohol or drug abuse patient.In the event this information is protected by the Federal Confidentiality of Alcohol and Drug Abuse Patient Records regulations: The Federal rules restrict any use of the information to criminally investigate or prosecute any alcohol or drug abuse patient.In the event this information is protected by the Federal Confidentiality of Alcohol and Drug Abuse Patient Records regulations: The Federal rules restrict any use of the information to criminally investigate or prosecute any alcohol or drug abuse patient.In the event this information is protected by the Federal Confidentiality of Alcohol and Drug Abuse Patient Records regulations: The Federal rules restrict any use of the information to criminally investigate or prosecute any alcohol or drug abuse patient.In the event this information is protected by the Federal Confidentiality of Alcohol and Drug Abuse Patient Records regulations: The Federal rules restrict any use of the information to criminally investigate or prosecute any alcohol or drug abuse patient.In the event this information is protected by the Federal Confidentiality of Alcohol and Drug Abuse Patient Records regulations: The Federal rules restrict any use of the information to criminally investigate or prosecute any alcohol or drug abuse patient.In the event this information is protected by the Federal Confidentiality of Alcohol and Drug Abuse Patient Records regulations: The Federal rules restrict any use of the information to criminally investigate or prosecute any alcohol or drug abuse patient.In the event this information is protected by the Federal Confidentiality of Alcohol and Drug Abuse Patient Records regulations: The Federal rules restrict any use of the information to criminally investigate or prosecute any alcohol or drug abuse patient.In the event this information is protected by the Federal Confidentiality of Alcohol and Drug Abuse Patient Records regulations: The Federal rules restrict any use of the information to criminally investigate or prosecute any alcohol or drug abuse patient.In the event this information is protected by the Federal Confidentiality of Alcohol and Drug Abuse Patient Records regulations: The Federal rules restrict any use of the information to criminally investigate or prosecute any alcohol or drug abuse patient.In the event this information is protected by the Federal Confidentiality of Alcohol and Drug Abuse Patient Records regulations: The Federal rules restrict any use of the information to criminally investigate or prosecute any alcohol or drug abuse patient.In the event this information is protected by the Federal Confidentiality of Alcohol and Drug Abuse Patient Records regulations: The Federal rules restrict any use of the information to criminally investigate or prosecute any alcohol or drug abuse patient.In the event this information is protected by the Federal Confidentiality of Alcohol and Drug Abuse Patient Records regulations: The Federal rules restrict any use of the information to criminally investigate or prosecute any alcohol or drug abuse patient.In the event this information is protected by the Federal Confidentiality of Alcohol and Drug Abuse Patient Records regulations: The Federal rules restrict any use of the information to criminally investigate or prosecute any alcohol or drug abuse patient.In the event this information is protected by the Federal Confidentiality of Alcohol and Drug Abuse Patient Records regulations: The Federal rules restrict any use of the information to criminally investigate or prosecute any alcohol or drug abuse patient.In the event this information is protected by the Federal Confidentiality of Alcohol and Drug Abuse Patient Records regulations: The Federal rules restrict any use of the information to criminally investigate or prosecute any alcohol or drug abuse patient.In the event this information is protected by the Federal Confidentiality of Alcohol and Drug Abuse Patient Records regulations: The Federal rules restrict any use of the information to criminally investigate or prosecute any alcohol or drug abuse patient.In the event this information is protected by the Federal Confidentiality of Alcohol and Drug Abuse Patient Records regulations: The Federal rules restrict any use of the information to criminally investigate or prosecute any alcohol or drug abuse patient.In the event this information is protected by the Federal Confidentiality of Alcohol and Drug Abuse Patient Records regulations: The Federal rules restrict any use of the information to criminally investigate or prosecute any alcohol or drug abuse patient.In the event this information is protected by the Federal Confidentiality of Alcohol and Drug Abuse Patient Records regulations: The Federal rules restrict any use of the information to criminally investigate or prosecute any alcohol or drug abuse patient.In the event this information is protected by the Federal Confidentiality of Alcohol and Drug Abuse Patient Records regulations: The Federal rules restrict any use of the information to criminally investigate or prosecute any alcohol or drug abuse patient.In the event this information is protected by the Federal Confidentiality of Alcohol and Drug Abuse Patient Records regulations: The Federal rules restrict any use of the information to criminally investigate or prosecute any alcohol or drug abuse patient.In the event this information is protected by the Federal Confidentiality of Alcohol and Drug Abuse Patient Records regulations: The Federal rules restrict any use of the information to criminally investigate or prosecute any alcohol or drug abuse patient.In the event this information is protected by the Federal Confidentiality of Alcohol and Drug Abuse Patient Records regulations: The Federal rules restrict any use of the information to criminally investigate or prosecute any alcohol or drug abuse patient.In the event this information is protected by the Federal Confidentiality of Alcohol and Drug Abuse Patient Records regulations: The Federal rules restrict any use of the information to criminally investigate or prosecute any alcohol or drug abuse patient.In the event this information is protected by the Federal Confidentiality of Alcohol and Drug Abuse Patient Records regulations: The Federal rules restrict any use of the information to criminally investigate or prosecute any alcohol or drug abuse patient.In the event this information is protected by the Federal Confidentiality of Alcohol and Drug Abuse Patient Records regulations: The Federal rules restrict any use of the information to criminally investigate or prosecute any alcohol or drug abuse patient.In the event this information is protected by the Federal Confidentiality of Alcohol and Drug Abuse Patient Records regulations: The Federal rules restrict any use of the information to criminally investigate or prosecute any alcohol or drug abuse patient.In the event this information is protected by the Federal Confidentiality of Alcohol and Drug Abuse Patient Records regulations: The Federal rules restrict any use of the information to criminally investigate or prosecute any alcohol or drug abuse patient.In the event this information is protected by the Federal Confidentiality of Alcohol and Drug Abuse Patient Records regulations: The Federal rules restrict any use of the information to criminally investigate or prosecute any alcohol or drug abuse patient.In the event this information is protected by the Federal Confidentiality of Alcohol and Drug Abuse Patient Records regulations: The Federal rules restrict any use of the information to criminally investigate or prosecute any alcohol or drug abuse patient.In the event this information is protected by the Federal Confidentiality of Alcohol and Drug Abuse Patient Records regulations: The Federal rules restrict any use of the information to criminally investigate or prosecute any alcohol or drug abuse patient.In the event this information is protected by the Federal Confidentiality of Alcohol and Drug Abuse Patient Records regulations: The Federal rules restrict any use of the information to criminally investigate or prosecute any alcohol or drug abuse patient.In the event this information is protected by the Federal Confidentiality of Alcohol and Drug Abuse Patient Records regulations: The Federal rules restrict any use of the information to criminally investigate or prosecute any alcohol or drug abuse patient.In the event this information is protected by the Federal Confidentiality of Alcohol and Drug Abuse Patient Records regulations: The Federal rules restrict any use of the information to criminally investigate or prosecute any alcohol or drug abuse patient.In the event this information is protected by the Federal Confidentiality of Alcohol and Drug Abuse Patient Records regulations: The Federal rules restrict any use of the information to criminally investigate or prosecute any alcohol or drug abuse patient.In the event this information is protected by the Federal Confidentiality of Alcohol and Drug Abuse Patient Records regulations: The Federal rules restrict any use of the information to criminally investigate or prosecute any alcohol or drug abuse patient. Reason for Visit (unrecogniz ed section and content) Reason Onset Date Comments Refill Request 12/10/2021 Reason Comments Headache SARAH, nausea dn dizzy x 1 hour Reason Comments Patient Update Reason Comments Established Patient [facility] hospital follow up-dizziness/nausea Reason Comments Results Reason Comments Refill Request Reason Onset Date Comments Refill Request 03/15/2022 Reason Comments F/U 6 months and cough issue sinc e Ly Reason Comments Medication Problem Reason Onset Date [...] ADMPamela Gavin MD [address] [place] [address] [facility] [place] [address] [place] [address] Referral ID Status Reason Start Date Expiration Date V isits Requested Visits Authorized [id number] Closed Auto-Generate d Referral 05/09/2022 06/08/2023 1 [...] Referred By Gilbert wood Referred To Contact CT IMAGING Diagnoses 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) Chronic cough Procedures CT CHEST WO IVCON DIAGNOSTIC COMPUTED TOMOGRAPHY THORAX W/O CNTRST Pamela Hernandez MD [address] [place] [address] [place] [address] Referral ID Status Reason Start Date Expiration Date V isits Requested Visits Authorized [id number] Closed Auto-Generate d Referral 11/28/2023 12/27/2024 1 [...] Care Teams (unrecognized sec tion and content) Tunnel Mucker Relationship Specialty Start Date End Date Darin Alonzo MD [address] [place] [address] PCP - General Internal Medicine 05/18/16 Tunnel Mucker Relationship Specialty Start Date End Date Darin Alonzo MD [address] [place] [address] PCP - General Internal Medicine 05/18/16 Tunnel Mucker Relationship Specialty Start Date End Date Darin Alonzo MD [address] [place] [address] PCP - General Internal Medicine 05/18/16 Tunnel Mucker Relationship Specialty Start Date End Date Darin Alonzo MD [address] [place] [address] PCP - General Internal Medicine 05/18/16 Tunnel Mucker Relationship Specialty Start Date End Date Darin Alonzo MD [address] [place] [address] PCP - General Internal Medicine 05/18/16 Tunnel Mucker Relationship Specialty Start Date End Date Darin Alonzo MD [address] [place] [address] PCP - General Internal Medicine 05/18/16 Tunnel Mucker Relationship Specialty Start Date End Date Darin Alonzo MD [address] [place] [address] PCP - General Internal Medicine 05/18/16 Tunnel Mucker Relationship Specialty Start Date End Date Darin Alonzo MD [address] [place] [address] PCP - General Internal Medicine 05/18/16 Tunnel Mucker Relationship Specialty Start Date End Date Darin Alonzo MD [address] [place] [address] PCP - General Internal Medicine 05/18/16 Tunnel Mucker Relationship Specialty Start Date End Date Darin Alonzo MD [address] [place] [address] PCP - General Internal Medicine 05/18/16 Tunnel Mucker Relationship Specialty Start Date End Date Darin Alonzo MD [address] [place] [address] PCP - General Internal Medicine 05/18/16 Tunnel Mucker Relationship Specialty Start Date End Date Darin Alonzo MD [address] [place] [address] PCP - General Internal Medicine 05/18/16 Tunnel Mucker Relationship Specialty Start Date End Date Darin Alonzo MD [address] [place] [address] PCP - General Internal Medicine 05/18/16 Tunnel Mucker Relationship Specialty Start Date End Date Darin Alonzo MD [address] [place] [address] PCP - General Internal Medicine 05/18/16 Tunnel Mucker Relationship Specialty Start Date End Date Darin Alonzo MD [address] [place] [address] PCP - General Internal Medicine 05/18/16 Tunnel Mucker Relationship Specialty Start Date End Date Darin Alonzo MD [address] [place] [address] PCP - General Internal Medicine 05/18/16 Tunnel Mucker Relationship Specialty Start Date End Date Darin Alonzo MD [address] [place] [address] PCP - General Internal Medicine 05/18/16 Tunnel Mucker Relationship Specialty Start Date End Date Darin Alonzo MD [address] [place] [address] PCP - General Internal Medicine 05/18/16 Tunnel Mucker Relationship Specialty Start Date End Date Darin Alonzo MD [address] [place] [address] PCP - General Internal Medicine 05/18/16 Tunnel Mucker Relationship Specialty Start Date End Date Darin Alonzo MD [address] [place] [address] PCP - General Internal Medicine 05/18/16 Team [...] MD Attending Provider, Referring Pro vider Active Tunnel Mucker Relationship Specialty Start Date End Date Darin Alonzo MD [address] [place] [address] PCP - General Internal Medicine 05/18/16 Tunnel Mucker Relationship Specialty Start Date End Date Darin Alonzo MD [address] [place] [address] PCP - General Internal Medicine 05/18/16 Team Status: Inactive Member Role Status Dates Dr. Darin Alonzo MD Primary Care Provider, Referring Provider Active DANIEL Valladares Attending Provider Active Team Status: Inactive Member Role Status Dates Dr. Darin Alonzo MD Primary Care Provider Active GRISELDA LEMA , COUNTY SUPERVISOR-C Attending Provider, Referring Provide r Active Tunnel Mucker Relationship Specialty Start Date End Date Darin Alonzo MD [address] [place] [address] PCP - General Internal Medicine 05/18/16 Tunnel Mucker Relationship Specialty Start Date End Date Darin Alonzo MD [address] [place] [address] PCP - General Internal Medicine 05/18/16 Tunnel Mucker Relationship Specialty Start Date End Date Darin Alonzo MD [address] [place] [address] PCP - General Internal Medicine 05/18/16 Team Status: Inactive Member Role Status Dates Dr. Darin Alonzo MD Primary Care Provider, Referring Provider Active DANIEL Neff Attending Provider Active Tunnel Mucker Relationship Specialty Start Date End Date Darin Alonzo MD [address] [place] [address] PCP - General Internal Medicine 05/18/16 Tunnel Mucker Relationship Specialty Start Date End Date Darin Alonzo MD [address] [place] [address] PCP - General Internal Medicine 05/18/16 Tunnel Mucker Relationship Specialty Start Date End Date Darin Alonzo MD [address] [place] [address] PCP - General Internal Medicine 05/18/16 Tunnel Mucker Relationship Specialty Start Date End Date Darin Alonzo MD [address] [place] [address] PCP - General Internal Medicine 05/18/16 Tunnel Mucker Relationship Specialty Start Date End Date Darin Alonzo MD [address] [place] [address] PCP - General Internal Medicine 05/18/16 Tunnel Mucker Relationship Specialty Start Date End Date Darin Alonzo MD [address] [place] [address] PCP - General Internal Medicine 05/18/16 Tunnel Mucker Relationship Specialty Start Date End Date Darin Alonzo MD [address] [place] [address] PCP - General Internal Medicine 05/18/16 Tunnel Mucker Relationship Specialty Start Date End Date Darin Alonzo MD [address] [place] [address] PCP - General Internal Medicine 05/18/16 Tunnel Mucker Relationship Specialty Start Date End Date Darin Alonzo MD [address] [place] [address] PCP - General Internal Medicine 05/18/16 Tunnel Mucker Relationship Specialty Start Date End Date Darin Alonzo MD [address] [place] [address] PCP - General Internal Medicine 05/18/16 Tunnel Mucker Relationship Specialty Start Date End Date Darin Alonzo MD [address] [place] [address] PCP - General Internal Medicine 05/18/16 Tunnel Mucker Relationship Specialty Start Date End Date Darin Alonzo MD [address] [place] [address] PCP - General Internal Medicine 05/18/16 Tunnel Mucker Relationship Specialty Start Date End Date Darin Alonzo MD [address] [place] [address] PCP - General Internal Medicine 05/18/16 Tunnel Mucker Relationship Specialty Start Date End Date Darin Alonzo MD [address] [place] [address] PCP - General Internal Medicine 05/18/16 Tunnel Mucker Relationship Specialty Start Date End Date Darin Alonzo MD [address] [place] [address] PCP - General Internal Medicine 05/18/16 Tunnel Mucker Relationship Specialty Start Date End Date Darin Alonzo MD [address] [place] [address] PCP - General Internal Medicine 05/18/16 Tunnel Mucker Relationship Specialty Start Date End Date Darin Alonzo MD [address] [place] [address] PCP - General Internal Medicine 05/18/16 Tunnel Mucker Relationship Specialty Start Date End Date Darin Alonzo MD [address] [place] [address] PCP - General Internal Medicine 9/7/16 Tunnel Mucker Relationship Specialty Start Date End Date Darin Alonzo MD [address] [place] [address] PCP - General Internal Medicine 05/18/16 Tunnel Mucker Relationship Specialty Start Date End Date Darin Alonzo MD [address] [place] [address] PCP - General Internal Medicine 05/18/16 Nohemy Winter PA-C [address] [place] [address] [facility] Family Medicine 08/18/24 Griselda Lema APRN.GAMER [address] [place] [address] [facility]cat Operator Internal Medicine 08/18/24 Lorene Mendez PA-C [address] [place] [address] [facility] Family Medicine 08/18/24 Tunnel Mucker Relationship Specialty Start Date End Date Darin Alonzo MD [address] [place] [address] PCP - General Internal Medicine 05/18/16 Nohemy Winter PA-C [address] [place] [address] [facility] Operator Family Medicine 08/18/24 Griselda Lema APRN.GAMER [address] [place] [address] Bobcat Operator Internal Medicine 08/18/24 Lorene Mendez PA-C [address] [place] [address] [facility] Operator Family Medicine 08/18/24 Tunnel Mucker Relationship Specialty Start Date End Date Darin Alonzo MD [address] [place] [address] PCP - General Internal Medicine 05/18/16 Nohemy Winter PA-C [address] [place] [address] [facility] Operator Family Medicine 08/18/24 Griselda Lema APRN.GAMER [address] [place] [address] Bobcat Operator Internal Medicine 08/18/24 Lorene Mendez PA-C [address] [place] [address] [facility]cat Operator Family Medicine 08/18/24 Tunnel Mucker Relationship Specialty Start Date End Date Darin Alonzo MD [address] [place] [address] PCP - General Internal Medicine 05/18/16 Nohemy Winter PA-C [address] [place] [address] [facility]cat Operator Family Medicine 08/18/24 Griselda Lema APRN.GAMER [address] [place] [address] Bobcat Operator Internal Medicine 08/18/24 Lorene Mendez PA-C [address] [place] [address] Bobcat Operator Family Medicine 08/18/24 Tunnel Mucker Relationship Specialty Start Date End Date Darin Alonzo MD [address] [place] [address] PCP - General Internal Medicine 05/18/16 Nohemy Winter PA-C [address] [place] [address] [employer]cat Operator Family Medicine 08/18/24 Griselda Lema APRN.GAMER [address] [place] [address] Bobcat Operator Internal Medicine 08/18/24 Lorene Mendez PA-C [address] [place] [address] Bobcat Operator Family Medicine 08/18/24 Tunnel Mucker Relationship Specialty Start Date End Date Darin Alonzo MD [address] [place] [address] PCP - General Internal Medicine 05/18/16 Nohemy Winter PA-C [address] [place] [address] [employer]cat Operator Family Medicine 08/18/24 Griselda Lema APRN.GAMER [address] [place] [address] Bobcat Operator Internal Medicine 08/18/24 Lorene Mendez PA-C [address] [place] [address] Bobcat Operator Family Medicine 08/18/24 Tunnel Mucker Relationship Specialty Start Date End Date Darin Alonzo MD [address] [place] [address] PCP - General Internal Medicine 05/18/16 Nohemy Winter PA-C [address] [place] [address] Bobcat Operator Family Medicine 08/18/24 Griselda Lema APRN.GAMER [address] [place] [address] Bobcat Operator Internal Medicine 08/18/24 Lorene Mendez PA-C [address] [place] [address] Bobcat Operator Family Medicine 08/18/24 Tunnel Mucker Relationship Specialty Start Date End Date Darin Alonzo MD [address] [place] [address] PCP - General Internal Medicine 05/18/16 Griselda Lema APRN.GAMER [address] [place] [address] Bobcat Operator Internal Medicine 08/18/24 Tunnel Mucker Relationship Specialty Start Date End Date Darin Alonzo MD [address] [place] [address] PCP - General Internal Medicine 05/18/16 Griselda Lema APRN.GAMER [address] [place] [address] Bobcat Operator Internal Medicine 08/18/24 Tunnel Mucker Relationship Specialty Start Date End Date Darin Alonzo MD [address] [place] [address] PCP - General Internal Medicine 05/18/16 Griselda Lema, NAREN.GAMER [address] [place] [address] Bobcat Operator Internal Medicine 08/18/24 Tunnel Mucker Relationship Specialty Start Date End Date Darin Alonzo MD [address] [place] [address] PCP - General Internal Medicine 05/18/16 Griselda Lema, AIRCRAFT CLEANER.GAMER [address] [place] [address] Bobcat Operator Internal Medicine 08/18/24 Tunnel Mucker Relationship Specialty Start Date End Date Darin Alonzo MD [address] [place] [address] PCP - General Internal Medicine 05/18/16 Griselda Lema, AIRCRAFT CLEANER.GAMER [address] [place] [address] Bobcat Operator Internal Medicine 08/18/24 Tunnel Mucker Relationship Specialty Start Date End Date Darin Alonzo MD [address] [place] [address] PCP - General Internal Medicine 05/18/16 Griselda Lema, AIRCRAFT CLEANER.GAMER [address] [place] [address] Bobcat Operator Internal Medicine 08/18/24 Tunnel Mucker Relationship Specialty Start Date End Date Darin Alonzo MD [address] [place] [address] PCP - General Internal Medicine 05/18/16 Griselda Lema, AIRCRAFT CLEANER.GAMER [address] [place] [address] Bobcat Operator Internal Medicine 08/18/24 Tunnel Mucker Relationship Specialty Start Date End Date Darin Alonzo MD [address] [place] [address] PCP - General Internal Medicine 05/18/16 Griselda Lema AIRCRAFT CLEANER.GAMER [address] [place] [address] Bobcat Operator Internal Medicine 08/18/24 Tunnel Mucker Relationship Specialty Start Date End Date Darin Alonzo MD [address] [place] [address] PCP - General Internal Medicine 05/18/16 Griselda Lema, AIRCRAFT CLEANER.GAMER [address] [place] [address] Bobcat Operator Internal Medicine 08/18/24 Tunnel Mucker Relationship Specialty Start Date End Date Darin Alonzo MD [address] [place] [address] PCP - General Internal Medicine 05/18/16 Griselda Lema, AIRCRAFT CLEANER.GAMER [address] [place] [address] Bobcat Operator Internal Medicine 08/18/24 Tunnel Mucker Relationship Specialty Start Date End Date Darin Alonzo MD [address] [place] [address] PCP - General Internal Medicine 05/18/16 Griselda Lema AIRCRAFT CLEANER.GAMER [address] [place] [address] Bobcat Operator Internal Medicine 08/18/24 Team Status: Active Member Role/Relationship Status Dates Dr. Darin Alonzo MD Primary Care Provider Active Team Status: Active Member Role/Relationship Status Dates Dr. Darin Alonzo MD Primary Care Provider Active Start: April 13, 2025 Dr. Jim Owens DO Emergency Provider Active Start : April 13, 2025 Dr. Raj Schroeder DO Admit Provider Active Start: April 13, 2025 Dr. Raj Schroeder DO Attending Provider Active Start: April 13, 2025 Goals (unrecognized section and content) Goals may [...] BE BASED ON THE PRIMARY CLINICAL RECORDS. [facility] [employer] [facility]. provides no warranty or guarantee of the accuracy or completeness of information in this document.
--- OUTSIDE RECORDS SUMMARY | 2025-04-13 02:25 | XMS RPT_ITS | CCD ---
Author Organization [facility] CliniSyin Care Team Providers Care Check And Transfer Beader Name Role Phone YASHIRA GIORDANO Unavailable Unavailable [...] Care Provider Arturo Winter PA-C Unavailable Older ROR ENGINEER.Griselda DACOSTA Unavailable Lorene Mendez PA-C Unavailable Arsh [...] Ganta Dr. Darin BURDICK Primary Care Provider Dr. Jim Owens DO Emergency Provider Dr. Raj Schroeder DO Admit Provider Unavail able Dr. Raj Schroeder DO Attending Provider Unav ailable Allergies Allergy Classification Reported Allergen(s) Allergy Type Date of Onset Reaction(s) Facility (20 sources) Sulfonamides (Antibiotic); Translations: [SULFA (SULFONAMIDE ANTIBIOTICS)] Propensity to adverse reactions to drug (disorder) 5 Rash [facility] Other [place] Repository (20 sources) Lisinopril; Translations: [LISINOPRIL] Drug Allergy 2 Cough [facility] Medications Current Medications Medication Drug Class(es) Dates [...] {tbl} PO DAILY March 10, 2022 12:00am [facility] Aspirin 81 mg Ta b Take 81 [...] times a day. 60 Each 10/18/2024 Active glimepiride 2 mg oral tablet (20 sources) [...] 1 in PM 0 08/17/2023 Active Start: 03-10-2022 Glimepiride 1 mg tablet Active 1 {tbl} PO TWICE A DAY March 10, 2022 12:00am diabetes Start: 02-11-2022 End: 08-17-2023 take 1 tablet by mouth twice daily at mealtime glimepiride (AMARYL) 1 mg tablet TAKE 1 TABLET BY MOUTH TWICE DAILY WITH MEALS 180 tablet 3 02/11/2022 02/21/2023 Discontinued Start: 04-08-2021 take 1 tablet by alhaji twice daily at mealtime glimepiride (AMARYL) 1 mg tablet Take 1 tablet by mouth twice daily with meals. 180 tablet 3 04/08/2021 Active Comment on above: Take 1 tablet by alhaji th twice daily with meals. TAKE 1 TABLET BY ALHAJI TWICE DAILY WITH MEALS Take 2 tablets in AM and 1 in PM Take 2 tablets by mo [facility] two times a day with meals. Take 2 tablets in AM and 1 in PM Take 1 tablet by alhaji th two times a day with meals. ipratropium bromide 0.042 mg/actuat metered dose nasal spray (20 sources) Anticholinergic Start: 04-13-2025 Ipratropium [place] 42 mcg (0.06 %) spray,non-aerosol Active 2 NMA INTRANASAL 4 TIMES DAILY April 13, 2025 12:00am Start: 03-04-2025 take 2 spray(s) nasa l route four times daily ipratropium bromide (ATROVENT) [...] mg oral tablet (20 sources) l-Thyroxine Start: 04-13-2025 Levothyroxine (Euthyrox) 125 mcg tablet Active 62.5 ug PO MO April 13, 2025 12:00am Start: 03-10-2022 Levothyroxine 125 mcg tablet Active 1 {tbl} PO SUTUWETHFRSA March 10, 2022 12:00am thyroid Start: 10-22-2021 End: 08-05-2024 levothyroxine (SYNTHROID) 12 5 mcg tablet Indications: Acquired hypothyroidism Take 1 [...] take 1.5 tablets one day a week magnesium chloride 598 mg delayed release oral tablet (18 sources) Start: 04-13-2025 Magnesium Chloride [Magnesium Chloride 64 Mg (Magnesium Chloride) Tablet,Delayed Release] (Magnesium Chloride 64 Mg (Magnesium Chloride) Tablet,Delayed ) 64 mg tablet,delayed release (DR/EC) Active 128 mg PO DAILY April 13, 2025 12:00am Start: 02-07-2025 End: 03-07-2025 take 2 tablets [...] mg oral tablet (20 sources) Biguanide Start: 03-10-2022 Metformin 1,00 0 mg tablet Active 1 {tbl} PO TWICE A DAY March 10, 2022 12:00am diabetes Start: 01-05-2021 End: 01-10-2025 take 1 tablet by mouth twice daily metFORMIN (GLUCOPHAGE) 1,000 mg tablet Take 1 tablet by mouth two times a day. 180 tablet 3 01/10/2025 Active Comment on above: Take 1 tablet by alhaji th twice daily. TAKE 1 TABLET BY ALHAJI TH TWICE DAILY Multivitamin-Minera ls-Lutein (A Thru Z High Potency) tablet (1 source) Start: Multivitamin-Mineral s-Lutein (A Thru Z High Potency) tablet Active 1 {tbl} PO DAILY April 13, 2025 12:00am Multivitamins-Staff [employer] Engineer als-Lutein (CENTRUM SILVER) tab (20 sources) Start: 2 take 1 tablet by mouth once daily Multivitamins-Minera ls-Lutein (CENTRUM SILVER) tab Take 1 tablet by mouth once daily. 0 10/25/2011 Active Comment on above: Take 1 tablet by alhaji th once daily. mupirocin 0.02 mg/mg topical ointment (3 sources) RNA Synthetase Inhibitor Antibacterial Start: End: mupirocin (BACTROBAN) 2 % ointment Apply to [...] tablet (20 sources) Proton Pump Inhibitor Start: 03-10-2022 Pantoprazole 20 mg tablet,delayed release (DR/EC) Active 1 {tbl} PO DAILY March 10, 2022 12:00am reflux Start: 09-17-2021 End: 02-18-2025 take 1 tablet by mouth once daily pantoprazole DR (PROTONIX) 20 mg tablet Take 1 tablet by mouth once daily. 90 tablet 3 11/20/2024 Active Comment on above: Take 1 tablet by alhaji th daily before breakfast. Take on empty stomach, 1/2 hr before meal. TAKE 1 TABLET BY ALHAJI TH DAILY BEFORE BREAKFAST ON AN EMPTY STOMACH [...] tablet (20 sources) HMG-CoA Reductase Inhibitor Start: 03-10-2022 Simvastatin 10 mg tablet Active 1 {tbl} PO DAILY March 10, 2022 12:00am cholesterol Start: 12-27-2021 End: 01-10-2025 take 1 tablet by mouth [...] (20 sources) Dipeptidyl Peptidase 4 Inhibitor Start: 03-10-2022 Sitagliptin Phosphate (Januvia) 100 mg tablet Active 1 {tbl} PO DAILY March 10, 2022 12:00am diabetes Start: 07-15-2021 End: 2024 take 1 tablet by mouth once daily SITagliptin phosphate (JANUVIA) 100 mg tablet Take 1 tablet by mouth once daily. 90 tablet 3 2024 Active Comment on above: Take 1 tablet by alhaji th once daily. telmisartan 20 mg oral tablet (20 sources) Angiotensin 2 Receptor Yamileth Start: 3 End: take 1 tablet by mouth once daily Telmisartan 20 mg tablet Active 20 mg PO DAILY March 21, 2023 12:00am Comment on above: Take 1 tablet by alhaji th once daily. traZODone hydrochloride 50 mg oral tablet (20 sources) Serotonin Reuptake Inhibitor Start: Trazodone 50 mg tablet Active 1 {tbl} PO AT BEDTIME March 10, 2022 12:00am sleep Start: 02-11-2022 End: 03-07-2025 take 1 tablet by mouth once daily [...] Drug Class(es) Dates Sig (Normalized) Sig (Original) [id number] 200 actuat albuterol 0.09 mg/actuat metered dose [...] on above: Take 1 capsule by mo [facility] three times daily as needed for cough. Fluticasone Propionate (Flovent Hfa) 110 mcg/actuation HFA aerosol inhaler (7 sources) Start: 03-10-2022 End: 04-13-2025 Fluticasone Propionate (Flovent Hfa) 110 mcg/actuation HFA aerosol inhaler Discontinued 2 NMA INHALATION TWICE A DAY March 10, 2022 12:00am April 13, 2025 12:49am allergies Start: 03-10-2022 take 1 puff(s) by in halation twice daily Fluticasone Propionate (Flovent Hfa) 110 mcg/actuation HFA aerosol inhaler Active 2 PUFF INHALATION TWICE A DAY March 09, 2022 11:00pm Start: 03-10-2022 take 1 puff(s) by in halation twice daily Fluticasone Propionate (Flovent Hfa) 110 mcg/actuation HFA aerosol inhaler Active 2 PUFF INHALATION TWICE A DAY March 10, 2022 12:00am 12 hr guaiFENesin 600 mg extended release oral tablet (20 sources) Start: 06-17-2022 End: 11-28-2023 take 1 tablet by mouth twice daily guaiFENesin (MUCINEX) 600 mg 12 hr tablet Indications: Acute cough Take 1 tablet by mouth twice daily. 60 tablet 5 06/17/2022 11/28/2023 Discontinued Comment on above: [facility] lisinopril 20 mg oral tablet (6 sources) Angiotensin Converting Enzyme Inhibitor Start: 03-11-2022 End: 04-13-2025 take 1 tablet by mouth once daily Lisinopril 20 mg Tablet Discontinued 20 mg PO DAILY 30 March 11, 2022 12:00am April 13, 2025 12:49am montelukast 10 mg oral tablet (8 sources) [...] Chronic Conditions associated with dizziness or vertigo (14 sources) Vertigo; Translations: [Dizziness and giddiness] Episodic [...] abscess without bleeding] Onset: 07-04-2005 01-03-2006 Chronic E Codes: Fall (1 source) Fall; Translations: [Unspecified fall, initial encounter] 04-13-2025 Episodic Esophageal disorders (20 sources) Gastroesophageal reflux disease without esophagitis; Translations: [Gastro-esophageal reflux disease without esophagitis] Onset: 10-22-2020 10-22-2020 Chronic Essential hypertension (20 sources) Essential hypertension; Translations: [Essential (primary) hypertension] Onset: 01-03-2006 09-06-2021 Chronic Fluid and electrolyte disorders (2 sources) Hyponatremia; Translations: [Hypo-osmolality and hyponatremia] 04-13-2025 Episodic Headache; including migraine (1 source) Headache; Translations: [...] and depression] Onset: 01-10-2025 Nausea and vomiting (10 sources) Nausea; Translations: [Nausea] Episodic Occlusion or stenosis of precerebral arteries (3 sources) Carotid artery stenosis; Translations: [Occlusion and stenosis of unspecified carotid artery] Chronic Comment on above: Duplex 03/07/23:Calci fic plaque with some shadowing proximal right internal carotid artery with less than 50%stenosisLess than 50% stenosis right external carotid artery Irregular calcific plaque with shadowing at the proximal left internal carotid artery with less than50% stenosisLess than 50% stenosis left external carotid artery Open wounds of extremities (1 source) Open wound of left elbow region; Translations: [Unspecified open wound of left elbow, initial encounter] 02-22-2024 Episodic Other aftercare (1 source) Post-discharge follow-up; Translations: [Encounter for follow-up examination after completed treatment for conditions other than malignant neoplasm] Episodic Other circulatory disease (2 sources) Disorder of carotid artery; Translations: [Disorder of arteries and arterioles, unspecified] 04-13-2025 Chronic Other circulatory disease (2 sources) Air trapping; Translations: [Other specified symptoms and signs involving the circulatory and respiratory systems] 06-14-2024 Episodic Other connective tissue disease (2 sources) Pain of right thigh; Translations: [Pain in right thigh] 04-10-2023 Episodic Other connective tissue disease (3 sources) Cramp; Translations: [Cramp and spasm] 01-10-2025 Episodic Other lower respiratory disease (5 sources) Angiotensin-converting -enzyme inhibitor adverse reaction; Translations: [Cough due to angiotensin-converting enzyme inhibitor] 03-17-2022 Episodic Other lower respiratory disease (3 sources) Cough; Translations: [Acute cough] 06-15-2022 Episodic Other nervous system disorders (2 sources) Abnormal gait; Translations: [Unspecified abnormalities of gait and mobility] 04-13-2025 Episodic Other non-traumatic joint disorders (2 sources) [...] Hypomagnesemia; Translations: [Hypomagnesemia] Onset: 01-29-2025 Chronic Other nutritional; endocrine; and metabolic disorders (2 sources) Body mass index 25-29 - overweight; Translations: [Overweight] 04-13-2025 Episodic Other upper respiratory infections (1 source) Chronic sinusitis; Translations: [Chronic sinusitis, unspecified] Chronic Residual codes; unclassified (3 sources) Insomnia; Translations: [Insomnia, unspecified] 01-10-2025 Episodic Residual codes; unclassified (1 source) Insomnia, unspecified; Translations: [Insomnia, unspecified type] Onset: 02-07-2025 Episodic Superficial injury; contusion (1 source) Contusion of left elbow; Translations: [Contusion of left elbow, initial encounter] 04-13-2025 Episodic Thyroid disorders (20 sources) Hypothyroidism; Translations: [...] 01-03-2006 Episodic Other aftercare (1 source) Other retirement (current) drug therapy; Translations: [Medication management] Onset: [...] Test Name Value Interpretation Reference Range Facility Absolute lymphocyte countOrd ered By: Jim Owens on 04-12-2025 Lymphocytes Auto (Unsp spec) [#/Vol] 1.19 10*3/uL 0.83-4.51 [facility] Absolute neutrophil countOrd ered By: Jim Owens on 04-12-2025 Neutrophils (Bld) [#/Vol] 8.1 10*3/uL High 2.0-7.7 [facility] Activated partial thrombopla stin time (aPTT) in platelet poor plasma by coagulation aOrdered By: Jim Owens on 04-12-2025 aPTT Coag (PPP) [Time] 24.8 s 24.1-36.2 [facility] Anion gap in Serum or Plasma Ordered By: Jim Owens on 04-12-2025 Anion gap [Moles/Vol] 14 mmol/L 5-15 [facility] Automated lymphocyte count a s percentage of total leukocytesOrdered By: Jim Owens on 04-12-2025 Lymphocytes/100 WBC Auto (Unsp spec) 12.1 % Low 19-41 [facility] BUN/creatinine ratioOrdered By: Jim Owens on 04-12-2025 Urea nitrogen/Creatinine [Mass ratio] 24.1 mg/mg High 10-20 [facility] Basophil percentageOrdered B y: Jim Owens on 04-12-2025 Basophils/100 WBC (Bld) 0.4 % 0-1 [facility] Carbon dioxide, total [Moles /volume] in Central venous bloodOrdered By: Jim Owens on 04-12-2025 CO2 [Moles/Vol] 21.5 mmol/L 21.0-32.0 [facility] Chloride assayOrdered By: Alpesh Owens on 04-12-2025 Chloride [Moles/Vol] 96 mmol/L Low 98-108 [facility] Eosinophil percentageOrdered By: Jim Owens on 04-12-2025 Eosinophils/100 WBC (Bld) 0.2 % 0-5 [facility] Erythrocyte distribution wid th ratioOrdered By: Jim Owens on 04-12-2025 Erythrocyte distribution width (RBC) [Ratio] 15.3 % High 11.6-14.6 [facility] Erythrocyte distribution wid th standard deviationOrdered By: Jim Owens on 04-12-2025 Erythrocyte distribution width (RBC) [Ratio] 47.4 fl High 35.1-43.9 [facility] Glomerular filtration rate ( GFR) estimation/1.73 sq m using serum, plasma, or whole bOrdered By: Jim Owens on 04-12-2025 GFR/1.73 sq M.predicted among non-blacks MDRD (S/P/Bld) [Vol rate/Area] 88 mL/min/{1.73_m2} >60 [facility] Comment on above: mL/min/1.73m2 CKD-EP I Creatinine Equation (2020) Hematocrit Auto (Bld) [Volum e fraction]Ordered By: Jim Owens on 04-12-2025 Hematocrit (Bld) [Volume fraction] 35.3 % Low 37-47 [facility] Hemoglobin measurementOrdere d By: Jim Owens on 04-12-2025 Hemoglobin (Bld) [Mass/Vol] 11.7 g/dL Low 12.0-15.0 [facility] Immature granulocytes/100 WB C Auto (Bld)Ordered By: Jim Owens on 04-12-2025 Immature granulocytes/100 WBC (Bld) 0.300 % 0.0-0.9 [facility] Comment on above: IG% - Immature Granu locytes (promyelocytes, myelocytes and metamyelocytes) > 1% indicates that a LEFT SHIFT is Present. International normalized rat io (INR) calculationOrdered By: Jim Owens on 04-12-2025 INR Coag (Bld) [Relative time] 1.1 {INR} [facility] MCV (mean corpuscular volume ) determinationOrdered By: Jim Owens on 04-12-2025 MCV (RBC) [Entitic vol] 85.3 fL 81-99 [facility] Mean corpuscular hemoglobin (MCH) determinationOrdered By: Jim Owens on 04-12-2025 MCH (RBC) [Entitic mass] 28.3 pg 27.0-32.0 [facility] Mean corpuscular hemoglobin concentration (MCHC) determinationOrdered By: Jim Owens on 04-12-2025 MCHC (RBC) [Mass/Vol] 33.1 g/dL 32-36 [facility] Mean platelet volume determi nationOrdered By: Jim Owens on 04-12-2025 Platelet mean volume (Bld) [Entitic vol] 10.3 fL 6.2-12.0 [facility] Monocyte percentageOrdered B y: Jim Owens on 04-12-2025 Monocytes/100 WBC (Bld) 4.8 % 0-10 [facility] Neutrophil percentageOrdered By: Jim Owens on 04-12-2025 Neutrophils/100 WBC (Bld) 82.2 % High 47-70 [facility] Nucleated red blood cell per centageOrdered By: Jim Owens on 04-12-2025 Nucleated RBC/100 WBC (Bld) [Ratio] 0 % 0-5 [facility] Platelet countOrdered By: Alpesh Owens on 04-12-2025 Platelets (Bld) [#/Vol] 235 10*3/uL 150-450 [facility] Potassium measurement (mass/ volume)Ordered By: Jim Owens on 08-02-2025 Potassium (Unsp spec) [Mass/Vol] 4.2 mmol/L 3.3-5.1 [facility] Comment on above: Hemolysis present, R esults could be affected. Prothrombin timeOrdered By: Jim Owens on 04-12-2025 PT Coag (PPP) [Time] 14.3 s 11.7-14.9 [facility] RBC Auto (Bld) [#/Vol]Ordere d By: Jim Owens on 04-12-2025 RBC (Bld) [#/Vol] 4.14 10*6/uL Low 4.2-5.4 [facility] Serum creatinine measurement (mass/volume)Ordered By: Jim Owens on 04-12-2025 Creatinine [Mass/Vol] 0.65 mg/dL Low 0.70-1.20 [facility] Serum glucose measurement (m ass/volume)Ordered By: Jim Owens on 04-12-2025 Glucose [Mass/Vol] 198 mg/dL High 70-99 [facility] Serum or plasma calcium sharmin urement (mass/volume)Ordered By: Jim Owens on 04-12-2025 Calcium [Mass/Vol] 8.8 mg/dL 7.6-11.0 [facility] Serum or plasma urea nitroge n measurement (mass/volume)Ordered By: Jim Owens on 04-12-2025 Urea nitrogen [Mass/Vol] 16 mg/dL 4-19 [facility] Sodium levelOrdered By: Jim Owens on 04-12-2025 Sodium [Moles/Vol] 131 mmol/L Low 133-145 [facility] White blood cell (WBC) count Ordered By: Jim Owens on 04-12-2025 WBC (Bld) [#/Vol] 9.9 10*3/uL 4.4-11.0 [facility] CNPNon 04-09-2025 [place] Telephone ([facility]) SHANNON LEIJA ([id number]) 1940 F NFR Date Time Provider Department 04/09/25 DARIN ALONZO During your visit today, we recorded the following information about you: Aliyah Clemens RN 04/09/2025 4:20 PM Signed Pt called in and reports she will be flying down to [place] in June. She was wanting to know about taking her pills on her carry on. She said the travel physical therapist told her she they want them I [...] Date Reviewed: 03/07/2025 Reviewed by: Griselda Lema APRN.DISPOSAL PLANT OPERATOR - Fully Assessed Reason for Visit: Patient Question [9347] Prescriptions as of 04/10/2025 - fluticasone-salmeterol (WIXELA [...] Tab Take 81 mg by mouth. - Jfmcuqyqaahlw-Qeprupvn-Txsm in (CENTRUM SILVER) tab Take 1 tablet [...] Encounter Status:Closed by CHRISTI QUIÑONEZ on 04/10/25 [facility] CNOVon 03-07-2025 CNOV Office Visit (INTMWS ) SHANNON LEIJA ([id number]) 1940 F NFR Date Time Provider Department 03/07/25 7:00 AM GRISELDA LEMA INTMWS During your visit today, we recorded the following information about you: Pulse Respiration Blood pressure Weight 84/minute 16/minute 122/60 71.2 kg Griselda Lema APRN.DISPOSAL PLANT OPERATOR 03/07/2025 8:35 AM Signed CC: Patient presents with: Recheck: 4 week follow up HPI Shannon Leija is a 84 year old female who presents today for follow up on leg cramps and insomnia. Recording using ambient I[employer]INTO[employer] software for draft documentation of the visit was discussed with the patient/authorized customer success representative; all questions welcomed and answered. Patient/authorized customer success representative agreed to proceed Muscle Cramps: - [...] with sleep. Lifestyle: - Shannon exercises at [employer] six days a week. - Enjoys attending shows at [employer]. REVIEW OF SYSTEMS General: no fevers, no [...] mg Tab Take 81 mg by mouth. Tqxzwchvmvdrv-Dwwgwnfu-Akkx in (CENTRUM SILVER) tab Take 1 tablet by mouth once daily. FAMILY HISTORY Adopted: Yes Social History Tobacco Use Smoking status: Never Smokeless tobacco: Never Tobacco comments: Parents did not smoke in childhood home. Spouse smoked in home for about 10 years. Vaping Use Vaping status: Never Used Sub (more content not included)... Normal [facility] Magnesium SerPl-ncon 02-21 Magnesium [Mass/Vol] 1.7 mg/dL Normal 1.7-2.3 [facility] Comment on above: Order Comment: Speci men Type: BLOOD SPECIMEN Ordering Facility: [facility] Address: [address] [place] [address] Performed By: #### 1 9123-9 #### [facility] CLIA [id number] [address] [place] [address] [facility] CNOVon 02-07-2025 CNOV Office Visit (INTMWS ) SHANNON LEIJA ([id number]) 1940 F NFR Date Time Provider Department 02/07/25 7:00 AM PHIL GRISELDA INTGISELLA During your visit today, we recorded the following information about you: Pulse Respiration Blood pressure Weight 74/minute 16/minute 136/64 72.1 kg Griselda Lema APRN.DISPOSAL PLANT OPERATOR 02/07/2025 7:44 AM Signed CC: Patient presents with: Recheck: 4 week follow up HPI Shannon Leija is a 84 year old female who presents today for follow up on insomnia which she was started on trazadone for and muscle cramps. Was found to have low magnesium so started on a magnesium supplement. Recording using [employer] software for draft documentation of the visit was discussed with the patient/authorized customer success representative; all questions welcomed and answered. Patient/authorized customer success representative agreed to proceed Hypomagnesemia: - Magnesium [...] mg Tab Take 81 mg by mouth. Tzbxblwibgjcm-Wghgeyff-Zxos in (CENTRUM SILVER) tab Take 1 tablet by mouth once daily. FAMILY HISTORY Adopted: Yes Social History Tobacco Use Smoking status: Never Smokeless tobacco: Never Tobacco comments: (more content not included)... Normal [facility] 02-04-2025 [facility] Telephone ([facility]) SHANNON LEIJA ([id number]) 1940 F NFR Date Time Provider Department 02/04/25 DARIN ALONZO INTMWS During your visit today, we recorded the following information about you: Luisana Cleveland 02/04/2025 12:35 PM Signed Patient called said she continues to have leg cramps even with taking the magnesium chloride 64mg Patient asking if a higher dose should be called in? She has 7 pills left Can be reached at [phone] Please advise Griselda Lema APRN.CNP 02/07/2025 7:04 AM Signed Will discuss further at upcoming appointment Griselda Lema APRN.CNP Allergies As of Date: 02/04/2025 Noted Allergy Reaction LISINOPRIL 05/09/2022 3 - Cough SULFA (SULFONAMIDE ANTIBIOTICS) 07/04/2005 2 - Rash Comments: Childhood reaction. Date Reviewed: 01/10/2025 Reviewed by: Griselda Lema APRN.CNP - Fully Assessed Reason for Visit: Patient Question [4309] Cmt: Leg cramps / asking if a [...] Tab Take 81 mg by mouth. - Rcwfafnmpuqwc-Kvofyjjn-Bgac in (CENTRUM SILVER) tab Take 1 tablet [...] Status:Closed by GRISELDA LEMA on 02/07/25 Normal [facility] Magnesium SerPl-mCncon 01-29 Magnesium [Mass/Vol] 1.4 mg/dL Low 1.7-2.3 [facility] Comment on above: Order Comment: Speci men Type: BLOOD SPECIMEN Ordering Facility: [facility] Address: [address] [place] [address] Performed By: #### 5 8410-2 #### [facility] CLIA [id number] [address] [place] [address] [facility] CNOVon 01-10-2025 CNOV Office Visit (INTMWS ) LEIJASHANNON Laya ([id number]) 1940 F NFR Date Time Provider Department 01/10/25 7:20 AM GRISELDA LEMA During your visit today, we recorded the following information about you: Pulse Respiration Blood pressure Weight 78/minute 16/minute 130/68 71.7 kg Griselda Lema APRN.DISPOSAL PLANT OPERATOR 01/10/2025 7:59 AM Signed CC: Patient presents with: Recheck: 3 month follow up HPI Shannon Leija is a 84 year old female who presents today for routine follow up. Recording using [employer] software for draft documentation of the visit was discussed with the patient/authorized customer success representative; all questions welcomed and answered. Patient/authorized customer success representative agreed to proceed Diabetes Mellitus: - [...] dyspnea, edema, or headaches. - Exercises at [employer] 6 days a week: strength training and [...] Test blood (more content not included)... Normal [facility] Magnesium SerPl-mCncon 01-10 Magnesium [Mass/Vol] 1.5 mg/dL Low 1.7-2.3 [facility] Comment on above: Order Comment: Speci men Type: BLOOD SPECIMENOrdering Facility: [facility] Address: [address] [place] [address] Performed By: #### 1 9123-9 ####[facility] [id number] [place] [address] [place] Basic metabolic 2000 panelon 01-03-2025 Anion gap [Moles/Vol] 11 mmol/L Normal 8-15 [facility] Comment on above: Order Comment: Speci men Type: BLOOD SPECIMENOrdering Facility: [facility] Address: [address] [place] [address] Performed By: #### 3 016-3, 47298-7 ####[facility] [id number] [place] [address] [place] Calcium [Mass/Vol] 9.2 mg/dL Normal 8.5-10.2 [facility] Comment on above: Order Comment: Speci men Type: BLOOD SPECIMENOrdering Facility: [facility] Address: [address] [place] [address] Performed By: #### 3 016-3, 48015-4 ####[facility]IA [id number] [place] [address] [place] Chloride [Moles/Vol] 98 mmol/L Normal 98-107 [facility] Comment on above: Order Comment: Speci men Type: BLOOD SPECIMENOrdering Facility: [facility] Address: [address] [place] [address] Performed By: #### 3 016-3, 62964-8 ####[facility]CLIA [id number] [place] [id number] [place] CO2 [Moles/Vol] 26 mmol/L Normal 22-30 [facility] Comment on above: Order Comment: Speci men Type: BLOOD SPECIMENOrdering Facility: [facility] Address: [address] [place], [place] [address] Performed By: #### 3 016-3, 98777-8 ####[facility]CLIA [id number] [place] [id number] [place] [facility] Creatinine [Mass/Vol] 0.77 mg/dL Normal 0.58-0.96 [facility] Comment on above: Order Comment: Saba dickerson Type: BLOOD SPECIMENOrdering Facility: [facility] Address: [address] [place] [address] Performed By: #### 3 016-3, 65824-9 ####[facility] LABIA [id number] [address] Creatinine and Glomerular filtration rate.predicted panel (S/P/Bld) 77 mL/min/1.73m??? Normal >=60 [facility] Comment on above: Order Comment: Saba dickerson Type: BLOOD SPECIMENOrdering Facility: [facility] Address: [address] [place] [address] Result Comment: Shari mated Glomerular Filtration Rate [...] actual GFR. Performed By: #### 3 016-3, 93922-7 ####[facility] LABIA [id number] [place] [address] [place] Glucose [Mass/Vol] 129 mg/dL High 74-99 [facility] Comment on above: Order Comment: Saba dickerson Type: BLOOD SPECIMENOrdering Facility: [facility] Address: [address] [place] [address] Result Comment: The [place] Diabetes Association (ADA) provides guidance for cutoff [...] Standards of Medical Care in Diabetes 2016, [place] Diabetes Association. Diabetes Care. 2016.39(Suppl 1). Performed By: #### 3 016-3, 16606-6 ####[facility]IA [id number] [place] [address] [place] Potassium [Moles/Vol] 4.3 mmol/L Normal 3.7-5.1 [facility] Comment on above: Order Comment: Speci men Type: BLOOD SPECIMENOrdering Facility: [facility] Address: [address] [place] [address] Performed By: #### 3 016-3, 08627-3 ####[facility]CLIA [id number] [place] [address] [place] Sodium [Moles/Vol] 135 mmol/L Low 136-144 [facility] Comment on above: Order Comment: Speci men Type: BLOOD SPECIMENOrdering Facility: [facility] Address: [address] [place] [address] Performed By: #### 3 016-3, 44323-1 ####[facility]IA [id number] [place] [id number] [place] Urea nitrogen [Mass/Vol] 18 mg/dL Normal 7-21 [facility] Comment on above: Order Comment: Speci men Type: BLOOD SPECIMENOrdering Facility: [facility] Address: [address] [place] [address] Performed By: #### 3 016-3, 74007-5 ####[facility]IA [id number] [place] [id number] [place] CBC panel Auto (Bld)on 01-03 Erythrocyte distribution width (RBC) [Ratio] 15.0 % Normal 11.5-15.0 [facility] Comment on above: Order Comment: Speci men Type: BLOOD SPECIMEN [facility] Address: [address] [place] [address] Performed By: #### 5 8410-2 #### [facility] CLIA [id number] [address] [place] [address] [place] Hematocrit (Bld) [Volume fraction] 36.8 % Normal 36.0-46.0 [facility] Comment on above: Order Comment: Speci men Type: BLOOD SPECIMEN [facility] Address: [address] [place] [address] Performed By: #### 5 8410-2 #### [facility] CLIA [id number] [address] [place] [address] [place] Hemoglobin (Bld) [Mass/Vol] 11.8 g/dL Normal 11.5-15.5 [facility] Comment on above: Order Comment: Speci men Type: BLOOD SPECIMEN [facility] Address: [address] [place] [address] Performed By: #### 5 8410-2 #### [facility] CLIA [id number] [address] [place] [address] [place] MCH (RBC) [Entitic mass] 28.0 pg Normal 26.0-34.0 [facility] Comment on above: Order Comment: Speci men Type: BLOOD SPECIMEN [facility] Address: [address] [place] [address] Performed By: #### 5 8410-2 #### [facility] CLIA [id number] [address] [place] [address] [place] MCHC (RBC) [Mass/Vol] 32.1 g/dL Normal 30.5-36.0 [facility] Comment on above: Order Comment: Speci men Type: BLOOD SPECIMEN [facility] Address: [address] [place] [address] Performed By: #### 5 8410-2 #### [facility] CLIA [id number] [address] [place] [address] [place] MCV (RBC) [Entitic vol] 87.2 fL Normal 80.0-100.0 [facility] Comment on above: Order Comment: Speci men Type: BLOOD SPECIMEN [facility] Address: [address] [place] [address] Performed By: #### 5 8410-2 #### [facility] CLIA [id number] [address] [place] [address] [place] Nucleated RBC (Bld) [#/Vol] 10*3/uL Normal <0.01 [facility] Comment on above: Order Comment: Speci men Type: BLOOD SPECIMEN [facility] Address: [address] [place] [address] Performed By: #### 5 8410-2 #### [facility] CLIA [id number] [address] [place] [address] [place] Platelet mean volume (Bld) [Entitic vol] 10.7 fL Normal 9.0-12.7 [facility] Comment on above: Order Comment: Speci men Type: BLOOD SPECIMEN [facility] Address: [address] [place] [address] Performed By: #### 5 8410-2 #### [facility] CLIA [id number] [address] [place] [address] [place] Platelets (Bld) [#/Vol] 250 10*3/uL Normal 150-400 [facility] Comment on above: Order Comment: Speci men Type: BLOOD SPECIMEN [facility] Address: [address] [place] [address] Performed By: #### 5 8410-2 #### [facility] CLIA [id number] [address] [place] [address] [place] RBC (Bld) [#/Vol] 4.22 10*6/uL Normal 3.90-5.20 [facility] Comment on above: Order Comment: Speci men Type: BLOOD SPECIMEN [facility] Address: [address] [place] [address] Performed By: #### 5 8410-2 #### [facility] CLIA [id number] [address] [place] [address] [place] WBC (Bld) [#/Vol] 6.52 10*3/uL Normal 3.70-11.00 [facility] Comment on above: Order Comment: Otonieli men Type: BLOOD SPECIMEN [facility] Address: [address] [place] [address] Performed By: #### 5 8410-2 #### [facility] CLIA [id number] [address] [place] [address] [place] HbA1c (Bld)on 01-03-2025 Average glucose Estimated from glycated hemoglobin (Bld) [Mass/Vol] 177 mg/dL Normal [facility] Comment on above: Order Comment: Saba dickerson Type: BLOOD SPECIMENOrdering Facility: [facility] Address: [address] [place] [address] Result Comment: eAG: (Estimated average glucose) is a calculated value from HgbA1c and is customer success representative of the average blood glucose level in the last 2-3 month period. Performed By: #### 5 5454-3 ####[facility]IA [id number] [place] [address] [place] HbA1c (Bld) [Mass fraction] 7.8 % High 4.3-5.6 [facility] Comment on above: Order Comment: Saba dickerson Type: BLOOD SPECIMENOrdering Facility: [facility] Address: [address] [place] [address] Result Comment: Amer [place] Diabetes Association guidelines indicate that patients with HgbA1c in the range 5.7-6.4% are at increased risk for development of diabetes, and intervention by lifestyle modification may be beneficial. HgbA1c greater or equal to 6.5% is considered diagnostic of diabetes. Performed By: #### 5 5454-3 ####[facility] [id number] [address] [place] TSH SerPl-aCncon 01-03-2025 TSH Qn 0.544 m[IU]/L Normal 0.270-4.20 0 [facility] Comment on above: Order Comment: Speci men Type: BLOOD SPECIMENOrdering Facility: [facility] Address: [address] [place] [address] [place] [address] Performed By: #### 3 016-3, 22405-1 ####[facility] LABIA [id number] [address] [facility] CNOVon 12-13-2024 CNOV Office Visit (PULMWS ) SHANNON LEIJA ([id number]) 1940 F NFR Date Time Provider Department 12/13/24 8:00 AM DORIE GILL PULMWS During your visit today, we recorded the following information about you: Pulse Respiration Blood pressure Weight 82/minute 17/minute 130/64 70.3 kg Dorie Gill, ROR ENGINEER.DISPOSAL PLANT OPERATOR 12/13/2024 12:40 PM Signed Pulmonary Medicine Patients [...] TAKE 1 TABLET BY MOUTH TWICE DAILY Vtgtmeqofugue-Ymwpvilb-Wlkk in Tab Commonly known as: CENTRUM SILVER [...] DATE OF EXAM: Dec 05 2023 8:38AM [facility] 0541 - CT CHEST WO IVCON / PROCEDURE REASON: multiple diagnoses * * * * Physician Interpretation * * * * EXAMINATION: CHEST CT WITHOUT CONTRAST CLINICAL HISTORY: Chronic cough Technique: Spiral CT acquisition of the chest from the thoracic inlet t (more content not included)... Normal [facility] Russell 11-18-2024 OLESYAN Telephone (BALBINA) SHANNON LEIJA ([id number]) 1940 F NFR Date Time Provider Department [...] Date Reviewed: 10/11/2024 Reviewed by: Griselda Lema APRN.DISPOSAL PLANT OPERATOR - Fully Assessed Reason for Visit: Cough [...] mouth once daily. - blood sugar diagnostic (MusicPlay AnalyticsTOUCH ULTRA TEST) test strip TEST 1 TIME [...] Tab Take 81 mg by mouth. - Cclotqvowqmzs-Umsmvcnz-Qtnf in (CENTRUM SILVER) tab Take 1 tablet [...] Encounter Status:Closed by CHARISSE LAGOS on 11/19/24 [facility] PT D/C Summary (1)on [facility] PT D/C Summary (1) [facility] [address] [place] [address] [address] [place] [address] / REHABILITATION SERVICES DISCHARGE SUMMARY MR#: [id number] Acct: [id number] Name: SHANNON LEIJA Rep #: [id number] : 1940 84 From: Tin Perdomo PT, ATC Referring Dr.: ADITYA Chaney Status: REG RCR Insurance: MEDICARE PART A B [facility] Discharge Summary D/C summary: It has [...] please feel free to call me at [phone]. Thank you for the referral of this patient. Sincerely, Tin Perdomo, PT, ATC Balance/Gait/Functional tests Balance/Special Test Scores Lower Extremity Functional Score: 75 Improvement % Improvement: 100 10/22/24 1111 CC: ADITYA Chaney; Dr. Darin Alonzo MD [facility] Signed [facility] CNPNon 10-17-2024 CNPN Telephone (ANATSANDY) SHANNON LEIJA ([id number]) 1940 F NFR Date Time Provider Department [...] Kathleen, LPN 10/17/2024 9:46 AM Signed Per mobifriends message from 12/13/23- patient may benefit from [...] Date Reviewed: 10/11/2024 Reviewed by: Griselda Lema APRN.DISPOSAL PLANT OPERATOR - Fully Assessed Reason for Visit: Patient [...] Tab Take 81 mg by mouth. 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 Is starting grief sharing class at [employer] soon and hoping this will help. Has [...] a day (more content not included)... Normal [facility] HEMOGLOBIN A1C (POC)on 10-11 HbA1c (Bld) [Mass fraction] 7.8 % Abnormal 4.3 - 5.6 % [facility] Comment on above: Location:[address], [place], [address] Point of care (POC) Hemoglobin A1c (HGBA1C) [...] specific diabetes management situations: The POC device microphone operator provides a normal range of 4.2% to 6.5% for the HGBA1C POC test. However, the [place] Diabetes Association guidelines indicate that patients with [...] Interpretation and review of laboratory results Abnormal [facility] Inital Evaluation (1) - PTon 09-25-2024 Inital Evaluation (1) - PT [facility] [address] [place] [address]. [address] [place] [address] / REHABILITATION SERVICES INITIAL EVALUATION MR#: [id number] Acct: [id number] Name: SHANNON LEIJA Rep #: [id number] : 1940 84 From: Tin Perdomo PT, ATC Referring Dr.: Dr. Arsh Chaney DPM Status: REG RCR Insurance: MEDICARE PART A B [facility] Patient's Visit Information Visit Information Visit [...] to be FAXED BACK to us at [phone] for Medicare purposes. For Medicare only, by signing this I certify the plan of care. Please let me know if there are questions or concerns regarding this plan of care. Physician Signature: Date: 09/25/24 1202 CC: ADITYA Chaney; Dr. Darin Alonzo MD [facility] Signed [facility] 09-19-2024 [facility] Telephone (INTMWS) SHANNON LEIJA ([id number]) 1940 F NFR Date Time Provider Department 09/19/24 DARIN ALONZO INTMWS During your visit today, we recorded the following information about you: Sarina Bobby RN 09/19/2024 9:30 AM Signed Patient calling and asking about thyroid lab testing results and instructions. Patient Notified: Thyroid levels in normal range. Continue current dosing of levothyroxine. Take care Griselda Lema APRN.[facility] Patient voices understanding. Sarina Bobby RN [...] Tab Take 81 mg by mouth. - Brwksiyslxeuo-Mzzldzyk-Hcyo in (CENTRUM SILVER) tab Take 1 tablet [...] Status:Closed by SARINA BOBBY on 09/19/24 Normal [facility] SCREENINGon 09-19-2024 [facility] SCREENING * * *Final Report* * * DATE OF EXAM: Sep 19 2024 10:22AM [facility] SAULT SCREENING / PROCEDURE REASON: Encounter for screening mammogram for breast cancer * * * * Physician Interpretation * * * * RESULT: [place] [address] #[id number] - [facility] SCREENING HISTORY: Patient is 84 years old [...] has dense breast tissue. Interpreting Radiologist: Charisse Websetr M.D. Electronically signed on: 09/19/2024 Client Engagement Specialist: EMEKA Transcribe Date/Time: Sep 19 2024 10:09A Dictated by: CHARISSE WEBSTER MD This examination was interpreted and the report reviewed and electronically signed by: CHARISSE WEBSTER MD on Sep 19 2024 4:28PM EST [id number] Normal [facility] Breast Screeningon 2024 IMPRESSION: There is no [...] Charisse Webster M.D. Electronically signed on: 09/19/2024 Client Engagement Specialist: EMEKA Transcripatti Date/Time: Sep 19 2024 10:09A Dictated by: CHARISSE WEBSTER MD This examination was interpreted and the report reviewed and electronically signed by: CHARISSE WEBSTER MD on Sep 19 2024 4:28PM EST DIVISION OF RADIOLOGY * * *Final Report* * * DATE OF EXAM: Sep 19 2024 10:22AM [facility] - [facility] SCREENING / PROCEDURE REASON: Encounter for screening mammogram for breast cancer * * * * Physician Interpretation * * * * RESULT: [facility] [address] [place] [id number] #[id number] - [place] SCREENING HISTORY: Patient is 84 [...] significant interval changes. DIVISION OF RADIOLOGY Provider, [facility] - 09/19/2024 * * *Final Report* * * DATE OF EXAM: Sep 19 2024 10:22AM [facility]81 - [facility] SCREENING / PROCEDURE REASON: Encounter for screening mammogram for breast cancer * * * * Physician Interpretation * * * * RESULT: [facility] [address] [place] [address] #[id number] - [place] SCREENING HISTORY: Patient is 84 [...] Charisse Webster M.D. Electronically signed on: 09/19/2024 Client Engagement Specialist: EMEKA Transcribe Date/Time: Sep 19 2024 10:09A Dictated by: CHARISSE WEBSTER MD This examination was interpreted and the report reviewed and electronically signed by: CHARISSE WEBSTER MD on Sep 19 2024 4:28PM EST [facility] Radiology Study observation (narrative) [facility] MG Breast ScreeningOrdered B y: [facility] Provider on 09-19-2024 [facility] T4 Free SerPl-mCncon 025 Free T4 [Mass/Vol] 1.7 ng/dL Normal 0.9-1.7 [facility] Comment on above: Order Comment: Saba dickerson Type: BLOOD SPECIMEN [facility] Address: [address] [place] [address] Performed By: #### 5 8410-2 #### [facility] CLIA [id number] [address] [place] [address] [place] TSH SerPl-aCncon 09-16-2024 TSH Qn 0.368 m[IU]/L Normal 0.270-4.20 0 [facility] Comment on above: Order Comment: Saba dickerson Type: BLOOD SPECIMEN [facility] Address: [address] [place] [address] Performed By: #### 5 8410-2 #### [facility] CLIA [id number] [address] [place] [address] [place] 08-06-2024 CNPN Telephone (INTMWS) SHANNON LEIJA ([id number]) 1940 F NFR Date Time Provider Department [...] for screening mammogram for breast cancer [Z12.31] Order(s):[facility] SCREENING [7226112] Order #: [id number] FUTURE Prescriptions as of 08/07/2024 - levothyroxine [...] Tab Take 81 mg by mouth. - Dmtbvsmmyuxbr-Hzpculul-Dgmr in (CENTRUM SILVER) tab Take 1 tablet [...] Encounter Status:Closed by ARTURO MAIN on 08/07/24 [facility] ([id number]) 1940 F NFR Date Time Provider Department 08/05/24 GRISELDA LEMA During your visit today, we recorded the following information about you: Griselda Lema APRN.CNP 08/05/2024 7:23 AM Signed TSH still abnormal. Verify she is taking 1 tablet daily. If so, cut one tablet in half once daily and we will recheck in 4-6 weeks. Thank you Griselda Lema APRN.DISPOSAL PLANT OPERATOR Danika Avilez MA 08/05/2024 9:53 AM Signed Patient notified. Allergies As of Date: 08/05/2024 Noted Allergy Reaction LISINOPRIL 05/09/2022 3 - Cough SULFA (SULFONAMIDE ANTIBIOTICS) 07/04/2005 2 - Rash Comments: Childhood reaction. Date Reviewed: 2024 Reviewed by: Danika Avilez MA - Fully Assessed Reason for Visit: Results [95] Primary Visit Diagnosis:Acquired hypothyroidism [E03.9] Other Visit Diagnosis:Medication management [Z79.899] Order(s):THYROID STIMULATING HORMONE [SQTSH] Order #: [id number] FUTURE T4 FREE/FREE THYROXINE [SQFT4] Order #: [id number] FUTURE levothyroxine (SYNTHROID) 125 mcg tabletTake 1 tablet by mouth once daily. Except take 1/2 tablet on SundaysDisp: 90 tabletRfl: 3 Prescriptions as of 08/05/2024 - levothyroxine (SYNTHROID) 125 mcg tablet Take 1 tablet by mouth once daily. Except take 1/2 tablet on Sundays - SITagliptin phosphate (JANUVIA) 100 mg tablet Take 1 tablet by mouth once daily. - blood sugar diagnostic (MusicPlay AnalyticsTOUCH ULTRA TEST) test strip TEST 1 TIME [...] Tab Take 81 mg by mouth. - Lzrtyeozijkho-Hgoerqdl-Usuz in (CENTRUM SILVER) tab Take 1 tablet [...] Status:Closed by DANIKA AVILEZ on 08/05/24 Normal [facility] TSH SerPl-aCncon 08-03-2024 TSH Qn 0.150 m[IU]/L Low 0.270-4.20 0 [facility] Comment on above: Order Comment: Speci men Type: BLOOD SPECIMENOrdering Facility: [facility] Address: [address] [place] [address] Performed By: #### 3 016-3 ####[facility] [id number] [facility] [id number] [place] [address] [facility] 06-24-2024 CNPN Telephone (INTMWS) SHANNON LEIJA ([id number]) 1940 F NFR Date Time Provider Department 06/24/24 DARIN ALONZO INTJeanWS During your visit today, we recorded the following information about you: Sarina Bobby RN 06/24/2024 11:16 AM Signed Patient calls and wanted office to know that she received her RSV Vaccine today at [facility] (06/24/2024) Patient also was checking with Griselda to see if she needed to get Dtap. Patient states that this was discussed in office that she had gotten a shot about a year ago when she went to [facility] care. Patient making sure that she is not supposed to get another one. Please review and advise, SKY Espinosa Joy, APRN.DISPOSAL PLANT OPERATOR 06/24/2024 11:20 AM Signed No need to get one at this time. Thank you Griselda Lema APRN.DISPOSAL PLANT OPERATOR Danika Avilez MA 06/24/2024 1:41 PM Signed [...] mouth once daily. - blood sugar diagnostic (MusicPlay AnalyticsTOUCH ULTRA TEST) test strip TEST 1 TIME [...] Tab Take 81 mg by mouth. - Bmdzmhvjkmihs-Hufyerwh-Ofbu in (CENTRUM SILVER) tab Take 1 tablet [...] Encounter Status:Closed by DANIKA AVILEZ on 06/24/24 Normal [facility] YANETHon 2024 CNOV Office Visit (INTMWS ) SHANNON LEIJA ([id number]) 1940 F NFR Date Time Provider Department 06/21/24 7:20 AM GRISELDA LEMA During your visit today, we recorded the following information about you: Pulse Respiration Blood pressure Weight 80/minute 16/minute 118/68 71.2 kg Griselda Lema APRN.DISPOSAL PLANT OPERATOR 2024 8:00 AM Signed CC: Patient presents [...] Sulfa (Sulfonamide Antibiotics) MEDICATIONS blood sugar diagnostic (MusicPlay AnalyticsTOUCH ULTRA TEST) test strip TEST 1 TIME [...] day A (more content not included)... Normal [facility] Lainey 06-14-2024 CNOV Office Visit (PULMWS ) SHANNON LEIJA ([id number]) 1940 F NFR Date Time Provider Department 06/14/24 9:00 AM DORIE GILL PULMWS During your visit today, we recorded the following information about you: Weight 71.7 kg Dorie Gill, ROR ENGINEER.DISPOSAL PLANT OPERATOR 06/14/2024 10:34 AM Signed Pulmonary Medicine Patients [...] TAKE 1 TABLET BY MOUTH TWICE DAILY Yavwgjqktauxr-Pzgszegv-Lvzc in Tab Commonly known as: CENTRUM SILVER [...] lymphadenopathy Trans (more content not included)... Normal [facility] ALBUMIN/CREATININE RATIO, UR INEon 06-13-2024 Albumin DL <= 20 mg/L (U) [Mass/Vol] mg/dL Normal [facility] Comment on above: Order Comment: Speci men Type: URINE SPECIMENOrdering Facility: [facility] Address: [address] [place] [address] Performed By: #### U ACR ####[facility] [id number] [place] [address] [place] Albumin/Creatinine (U) [Mass ratio] <19 Normal <30 [facility] Comment on above: Order Comment: Speci men Type: URINE SPECIMENOrdering Facility: [facility] Address: [address] [place] [address] Result Comment: Adul t Male and Female Nephrotic Criteria: <30 mg/g is considered normal to mildly increased 30-300 mg/g is considered moderately increased >300 mg/g is considered severely increased KDIGO. (2013). KDIGO 2012 Clinical Practice Guideline for the Evaluation and Management of Chronic Kidney Disease. Official Journal of the International Society of Nephrology, 3(1), 1-150. Performed By: #### U ACR ####[facility] [id number] [place] [address] [place] Creatinine (U) [Mass/Vol] 64.7 mg/dL Normal 20.0-300.0 [facility] Comment on above: Order Comment: Speci men Type: URINE SPECIMENOrdering Facility: [facility] Address: [address] [place] [address] Performed By: #### U ACR ####[facility] [id number] [place] [id number] [place] CBC panel Auto (Bld)on 06-13 Erythrocyte distribution width (RBC) [Ratio] 14.2 % Normal 11.5-15.0 [facility] Comment on above: Order Comment: Speci men Type: BLOOD SPECIMEN [facility] Facility[facility] Address: [address] [place] [address] Performed By: #### 5 8410-2 #### [facility] CLIA [id number] [address] [place] [address] [place] Hematocrit (Bld) [Volume fraction] 39.8 % Normal 36.0-46.0 [facility] Comment on above: Order Comment: Speci men Type: BLOOD SPECIMEN [facility] Address: [address] [place] [address] Performed By: #### 5 8410-2 #### [facility] CLIA [id number] [address] [place] [address] [place] Hemoglobin (Bld) [Mass/Vol] 12.5 g/dL Normal 11.5-15.5 [facility] Comment on above: Order Comment: Speci men Type: BLOOD SPECIMEN [facility] Address: [address] [place] [address] Performed By: #### 5 8410-2 #### [facility] CLIA [id number] [address] [place] [address] [place] MCH (RBC) [Entitic mass] 28.7 pg Normal 26.0-34.0 [facility] Comment on above: Order Comment: Speci men Type: BLOOD SPECIMEN [facility] Address: [address] [place] [address] Performed By: #### 5 8410-2 #### [facility] CLIA [id number] [address] [place] [address] [place] MCHC (RBC) [Mass/Vol] 31.4 g/dL Normal 30.5-36.0 [facility] Comment on above: Order Comment: Speci men Type: BLOOD SPECIMEN [facility] Address: [address] [place] [address] Performed By: #### 5 8410-2 #### [facility] CLIA [id number] [address] [place] [address] [place] MCV (RBC) [Entitic vol] 91.5 fL Normal 80.0-100.0 [facility] Comment on above: Order Comment: Speci men Type: BLOOD SPECIMEN [facility] Address: [address] [place] [address] Performed By: #### 5 8410-2 #### [facility] CLIA [id number] [address] [place] [address] [place] Nucleated RBC (Bld) [#/Vol] 10*3/uL Normal <0.01 [facility] Comment on above: Order Comment: Speci men Type: BLOOD SPECIMEN [facility] Address: [address] [place] [address] Performed By: #### 5 8410-2 #### [facility] CLIA [id number] [address] [place] [address] [place] Platelet mean volume (Bld) [Entitic vol] 10.6 fL Normal 9.0-12.7 [facility] Comment on above: Order Comment: Speci men Type: BLOOD SPECIMEN [facility] Address: [address] [place] [address] Performed By: #### 5 8410-2 #### [facility] CLIA [id number] [address] [place] [address] [place] Platelets (Bld) [#/Vol] 252 10*3/uL Normal 150-400 [facility] Comment on above: Order Comment: Speci men Type: BLOOD SPECIMEN [facility] Address: [address] [place] [address] Performed By: #### 5 8410-2 #### [facility] CLIA [id number] [address] [place] [address] [place] RBC (Bld) [#/Vol] 4.35 10*6/uL Normal 3.90-5.20 [facility] Comment on above: Order Comment: Speci men Type: BLOOD SPECIMEN [facility] Address: [address] [place] [address] Performed By: #### 5 8410-2 #### [facility] CLIA [id number] [address] [place] [address] [place] WBC (Bld) [#/Vol] 6.67 10*3/uL Normal 3.70-11.00 [facility] Comment on above: Order Comment: Speci men Type: BLOOD SPECIMEN [facility] Address: [address] [place] [address] Performed By: #### 5 8410-2 #### [facility] CLIA [id number] [address] [place] [address] [place] Comprehensive metabolic 2000 panelon 06-13-2024 Albumin [Mass/Vol] 3.9 g/dL Normal 3.9-4.9 [facility] Comment on above: Order Comment: Speci men Type: BLOOD SPECIMEN [facility] Address: [address] [place] [address] Performed By: #### 5 8410-2 #### [facility] CLIA [id number] [address] [place] [address] [place] ALP [Catalytic activity/Vol] 57 U/L Normal 34-123 [facility] Comment on above: Order Comment: Speci men Type: BLOOD SPECIMEN [facility] Address: [address] [place] [address] Performed By: #### 5 8410-2 #### [facility] CLIA [id number] [address] [place] [address] [place] ALT [Catalytic activity/Vol] 20 U/L Normal 7-38 [facility] Comment on above: Order Comment: Speci men Type: BLOOD SPECIMEN [facility] Address: [address] [place] [address] Performed By: #### 5 8410-2 #### [facility] CLIA [id number] [address] [place] [address] [place] Anion gap [Moles/Vol] 11 mmol/L Normal 8-15 [facility] Comment on above: Order Comment: Speci men Type: BLOOD SPECIMEN [facility] Address: [address] [place] [address] Performed By: #### 5 8410-2 #### [facility] CLIA [id number] [address] [place] [address] [place] AST [Catalytic activity/Vol] 24 U/L Normal 13-35 [facility] Comment on above: Order Comment: Speci men Type: BLOOD SPECIMEN [facility] Address: [address] [place] [address] Performed By: #### 5 8410-2 #### [facility] CLIA [id number] [address] [place], [place] [address] [place] Bilirubin [Mass/Vol] 0.3 mg/dL Normal 0.2-1.3 [facility] Comment on above: Order Comment: Speci men Type: BLOOD SPECIMEN [facility] Address: [address] [place] [address] Performed By: #### 5 8410-2 #### [facility] CLIA [id number] [address] [place], [place] [address] [place] Calcium [Mass/Vol] 9.6 mg/dL Normal 8.5-10.2 [facility] Comment on above: Order Comment: Speci men Type: BLOOD SPECIMEN [facility] Address: [address] [place], [place] [address] Performed By: #### 5 8410-2 #### [facility] CLIA [id number] [address] [place], [place] [address] [place] Chloride [Moles/Vol] 100 mmol/L Normal 98-107 [facility] Comment on above: Order Comment: Speci men Type: BLOOD SPECIMEN [facility] Address: [address] [place] [address] Performed By: #### 5 8410-2 #### [facility] CLIA [id number] [address] [place] [address] [place] CO2 [Moles/Vol] 26 mmol/L Normal 22-30 [facility] Comment on above: Order Comment: Speci men Type: BLOOD SPECIMEN [facility] Address: [address] [place] [address] Performed By: #### 5 8410-2 #### [facility] CLIA [id number] [address] [place] [address] [place] Creatinine [Mass/Vol] 0.63 mg/dL Normal 0.58-0.96 [facility] Comment on above: Order Comment: Speci men Type: BLOOD SPECIMEN [facility] Address: [address] [place] [address] Performed By: #### 5 8410-2 #### [facility] CLIA [id number] [address] [place] [address] [facility] Creatinine and Glomerular filtration rate.predicted panel (S/P/Bld) 89 mL/min/1.73m??? Normal >=60 [facility] Comment on above: Order Comment: Speci men Type: BLOOD SPECIMEN [facility] Address: [address] [place] [address] Result Comment: Shari mated Glomerular Filtration Rate [...] GFR. Performed By: #### 5 8410-2 #### [facility] CLIA [id number] [address] [place] [address] [place] Glucose [Mass/Vol] 126 mg/dL High 74-99 [facility] Comment on above: Order Comment: Speci men Type: BLOOD SPECIMEN [facility] Address: [address] [place] [address] Result Comment: The [place] Diabetes Association (ADA) provides guidance for cutoff [...] Standards of Medical Care in Diabetes 2016, [place] Diabetes Association. Diabetes Care. 2016.39(Suppl 1). Performed By: #### 5 8410-2 #### [facility] CLIA [id number] [address] [place] [address] [place] Potassium [Moles/Vol] 4.6 mmol/L Normal 3.7-5.1 [facility] Comment on above: Order Comment: Speci men Type: BLOOD SPECIMEN [facility] Address: [address] [place] [address] Performed By: #### 5 8410-2 #### [facility] CLIA [id number] [address] [place] [address] [place] Protein [Mass/Vol] 7.2 g/dL Normal 6.3-8.0 [facility] Comment on above: Order Comment: Speci men Type: BLOOD SPECIMEN [facility] Address: [address] [place] [address] Performed By: #### 5 8410-2 #### [facility] CLIA [id number] [address] [place] [address] [place] Sodium [Moles/Vol] 137 mmol/L Normal 136-144 [facility] Comment on above: Order Comment: Saba dickerson Type: BLOOD SPECIMEN [facility] Address: [address] [place] [address] Performed By: #### 5 8410-2 #### [facility] CLIA [id number] [address] [place] [address] [place] Urea nitrogen [Mass/Vol] 19 mg/dL Normal 7-21 [facility] Comment on above: Order Comment: Otonieli men Type: BLOOD SPECIMEN [facility] Address: [address] [place] [address] Performed By: #### 5 8410-2 #### [facility] CLIA [id number] [address] [place] [address] [place] HbA1c (Bld)on 06-13-2024 Average glucose Estimated from glycated hemoglobin (Bld) [Mass/Vol] 177 mg/dL Normal [facility] Comment on above: Order Comment: Saba dickerson Type: BLOOD SPECIMEN [facility] Address: [address] [place] [address] Result Comment: eAG: (Estimated average glucose) is a calculated value from HgbA1c and is customer success representative of the average blood glucose level in the last 2-3 month period. Performed By: #### 5 8410-2 #### [facility] CLIA [id number] [address] [place] [address] [place] HbA1c (Bld) [Mass fraction] 7.8 % High 4.3-5.6 [facility] Comment on above: Order Comment: Saba dickerson Type: BLOOD SPECIMEN [facility] Address: [address] [place] [address] Result Comment: [place] Diabetes Association guidelines indicate that patients with HgbA1c in the range 5.7-6.4% are at increased risk for development of diabetes, and intervention by lifestyle modification may be beneficial. HgbA1c greater or equal to 6.5% is considered diagnostic of diabetes. Performed By: #### 5 8410-2 #### [facility] CLIA [id number] [address] [place] [address] [place] Lipid 1996 panelon 4 Cholesterol [Mass/Vol] 136 mg/dL Normal <200 [facility] Comment on above: Order Comment: Speci men Type: BLOOD SPECIMEN [facility] Address: [address] [place] [address] Result Comment: <200 mg/dL, Desirable 200-239 mg/dL, Borderline high >239 mg/dL, High Performed By: #### 5 8410-2 #### [facility] CLIA [id number] [address] [place] [address] [place] Cholesterol in HDL [Mass/Vol] 54 mg/dL Normal >39 [facility] Comment on above: Order Comment: Saba dickerson Type: BLOOD SPECIMEN [facility] Address: [address] [place] [address] Result Comment: 40-5 9 mg/dL, Acceptable >59 mg/dL, High: Negative risk factor for coronary heart disease <40 mg/dL, Low: Positive risk factor for coronary heart disease Performed By: #### 5 8410-2 #### [facility] CLIA [id number] [address] [place] [address] [facility] Cholesterol in LDL [Mass/Vol] 71 mg/dL Normal <100 [facility] Comment on above: Order Comment: Saba men Type: BLOOD SPECIMEN [facility] Address: [address] [place] [address] Result Comment: <100 mg/dL, Optimal 100-129 mg/dL, Near optimal/above optimal 130-159 mg/dL, Borderline high 160-189 mg/dL, High >189 mg/dL, Very high Secondary prevention optimal LDL Cholesterol levels are recommended to be < 70 mg/dL Performed By: #### 5 8410-2 #### [facility] CLIA [id number] [address] [place] [address] [place] Cholesterol in LDL/Cholesterol in HDL [Mass ratio] 1.31 {ratio} Normal <2.54 [facility] Comment on above: Order Comment: Speci men Type: BLOOD SPECIMEN [facility] Address: [address] [place] [address] Result Comment: Refe rence: 1. National Cholesterol Education Program ATP III Guideline At-A-Glance Quick Desk Reference: National Heart, Lung, and Blood [place]. National Institutes of Health. 2001: NIH Publication No. 01-3305. 2. An International Atherosclerosis Society position paper: global recommendations for the management of dyslipidemia: executive summary, Atherosclerosis. 2014: 232(2):410-413. Performed By: #### 5 8410-2 #### [facility] CLIA [id number] [address] [place] [address] [place] Cholesterol in VLDL [Mass/Vol] 11 mg/dL Normal <30 [facility] Comment on above: Order Comment: Speci men Type: BLOOD SPECIMEN [facility] Address: [address] [place] [address] Performed By: #### 5 8410-2 #### [facility] CLIA [id number] [address] [place] [address] [place] Cholesterol non HDL [Mass/Vol] 82 mg/dL Normal <130 [facility] Comment on above: Order Comment: Speci men Type: BLOOD SPECIMEN [facility] Address: [address] [place] [address] Result Comment: <130 mg/dL, Optimal 130-159 mg/dL, Near optimal/above optimal 160-189 mg/dL, Borderline high 190-219 mg/dL, High >219 mg/dL, Very high Secondary prevention optimal non HDL Cholesterol levels are recommended to be <100 mg/dL Performed By: #### 5 8410-2 #### [facility] CLIA [id number] [address] [place] [address] [place] Cholesterol.total/Chol esterol in HDL [Mass ratio] 2.52 {ratio} Normal <5.10 [facility] Comment on above: Order Comment: Speci men Type: BLOOD SPECIMEN [facility] Address: [address] [place] [address] Performed By: #### 5 8410-2 #### [facility] CLIA [id number] [address] [place] [address] [place] FASTING TIME 12 hrs Normal [facility] Comment on above: Order Comment: Speci men Type: BLOOD SPECIMEN [facility] Address: [address] [place] [address] Performed By: #### 5 8410-2 #### [facility] CLIA [id number] [address] [place] [address] [place] Triglyceride [Mass/Vol] 54 mg/dL Normal <150 [facility] Comment on above: Order Comment: Speci men Type: BLOOD SPECIMEN [facility] Address: [address] [place] [address] Result Comment: <150 mg/dL, Normal 150-199 mg/dL, Borderline high 200-499 mg/dL, High >499 mg/dL, Very high Performed By: #### 5 8410-2 #### [facility] CLIA [id number] [address] [place] [address] [place] TSH SerPl-aCncon 06-13-2024 TSH Qn 0.173 m[IU]/L Low 0.270-4.20 0 [facility] Comment on above: Order Comment: Speci men Type: BLOOD SPECIMEN [facility] Address: [address] [place] [address] Performed By: #### 5 8410-2 #### [facility] CLIA [id number] [address] [place] [address] [place] CNPShruthi 04-25-2024 CNPN Telephone (FAMPWS) LEIJASHANNON Asif ([id number]) 1940 F NFR Date Time Provider Department 04[facility] today, we recorded the [...] Tab Take 81 mg by mouth. - Dwlvtesffrppa-Telepyjw-Pktc in (CENTRUM SILVER) tab Take 1 tablet [...] Status:Closed by JAC DUMONT on 06/03/24 Normal [facility] HEMOGLOBIN A1C (POC)on 03-21 HbA1c (Bld) [Mass fraction] 7.7 % Abnormal 4.3 - 5.6 % [facility] Comment on above: Location:[address], [address] Point of care (POC) Hemoglobin A1c (HGBA1C) [...] specific diabetes management situations: The POC device microphone operator provides a normal range of 4.2% to 6.5% for the HGBA1C POC test. However, the [place] Diabetes Association guidelines indicate that patients with [...] Interpretation and review of laboratory results Abnormal [facility] No Panel Informationon 04-10 IMPRESSION: No acute osseous findings right hip. Right hip joint is maintained. No acute osseous findings right ankle. Joint spaces are maintained Client Engagement Specialist: [facility] Transcribe Date/Time: Apr 10 2023 3:17P Dictated by : TACOS JUSTIN MD This examination was interpreted and the report reviewed and electronically signed by: TACOS JUSTIN MD on Apr 10 2023 3:20PM [facility] DIVISION OF RADIOLOGY Radiology Study observation (narrative) [facility] No Panel InformationOrdered By: Ccf Provider on 04-10-2023 [facility] XR Ankle - right AP and Late [...] thigh x 4-5 months. No injury. (accession [id number]), Right ankle weakness without pain x 4-5 months. No injury (accession [id number]) Tenderness of right hip (accession [id number]), Right ankle instability (accession [id number]) Right thigh pain Technique: XR HIP 3V [...] seen on radiograph. DIVISION OF RADIOLOGY Provider, [facility] - 04/10/2023 * * *Final Report* [...] thigh x 4-5 months. No injury. (accession [id number]), Right ankle weakness without pain x 4-5 months. No injury (accession [id number]) Tenderness of right hip (accession [id number]), Right ankle instability (accession [id number]) Right thigh pain Technique: XR HIP 3V [...] findings right ankle. Joint spaces are maintained Client Engagement Specialist: [facility] Transcribe Date/Time: Apr 10 2023 3:17P Dictated by : TACOS JUSTIN MD This examination was interpreted and the report reviewed and electronically signed by: TACOS JUSTIN MD on Apr 10 2023 3:20PM [facility] XR Pelvis and Hip - right AP [...] thigh x 4-5 months. No injury. (accession [id number]), Right ankle weakness without pain x 4-5 months. No injury (accession [id number]) Tenderness of right hip (accession [id number]), Right ankle instability (accession [id number]) Right thigh pain Technique: XR HIP 3V [...] seen on radiograph. DIVISION OF RADIOLOGY Provider, [facility] - 04/10/2023 * * *Final Report* * [...] thigh x 4-5 months. No injury. (accession [id number]), Right ankle weakness without pain x 4-5 months. No injury (accession [id number]) Tenderness of right hip (accession [id number]), Right ankle instability (accession [id number]) Right thigh pain Technique: XR HIP 3V [...] findings right ankle. Joint spaces are maintained Client Engagement Specialist: [facility] Transcribe Date/Time: Apr 10 2023 3:17P Dictated by : TACOS JUSTIN MD This examination was interpreted and the report reviewed and electronically signed by: TACOS JUSTIN MD on Apr 10 2023 3:20PM EST [facility] XR Chest PA and Lateralon IMPRESSION: No acute radiographic abnormality. Client Engagement Specialist: [facility] Transcribe Date/Time: Nov 08 2022 4:00P Dictated by : MAYELIN VORA MD This examination was interpreted and the report reviewed and electronically signed by: MAYELIN VORA MD on Nov 08 2022 4:02PM [facility] DIVISION OF RADIOLOGY * * *Final [...] and degenerative changes. DIVISION OF RADIOLOGY Provider, [facility] - 11/08/2022 * * *Final Report* * [...] changes. IMPRESSION IMPRESSION: No acute radiographic abnormality. Client Engagement Specialist: [facility] Transcribe Date/Time: Nov 08 2022 4:00P Dictated by : MAYELIN VORA MD This examination was interpreted and the report reviewed and electronically signed by: MAYELIN VORA MD on Nov 08 2022 4:02PM EST [facility] XR Chest PA and LateralOrder ed By: Ccf Provider on 11-08-2022 [facility] XR Chest PA and Lateralon Radiology Study observation (narrative) [facility] No Panel Informationon 08-22 [facility] Eosinophils Auto (Bld) [#/Vo l]on 07-15-2022 Eosinophils (Bld) [#/Vol] 0.17 10*3/uL <0.46 k/uL [facility] XR CHEST 2V FRONTAL/LATon [facility] XR Chest PA and Lateralon IMPRESSION: No acute radiographic abnormality. Client Engagement Specialist: [facility] Transcribe Date/Time: Jun 15 2022 9:00A Dictated by : OSMANY COLE MD This examination was interpreted and the report reviewed and electronically signed by: OSMANY COLE MD on Jun 15 2022 9:01AM [facility] DIVISION OF RADIOLOGY * * *Final [...] pectus excavatum deformity DIVISION OF RADIOLOGY Provider, [facility] - 06/15/2022 * * *Final Report* * [...] deformity IMPRESSION IMPRESSION: No acute radiographic abnormality. Client Engagement Specialist: [facility] Transcribe Date/Time: Jun 15 2022 9:00A Dictated by : OSMANY COLE MD This examination was interpreted and the report reviewed and electronically signed by: OSMANY COLE MD on Jun 15 2022 9:01AM EST [facility] Radiology Study observation (narrative) [facility] XR Chest PA and LateralOrder ed By: Ccf Provider on 06-15-2022 [facility] XR Chest PA and Lateralon IMPRESSION: Stable chronic interstitial changes. No superimposed acute radiographic abnormality. Client Engagement Specialist: [employer] Transcribe Date/Time: Mar 22 2022 12:09P Dictated by : SARINA BAUGH MD This examination was interpreted and the report reviewed and electronically signed by: SARINA BAUGH MD on Mar 22 2022 12:11PM EST [facility]_DO_NOT _USE_DIVIS ION OF RADIOLOGY * * *Final Report* * [...] degenerative change. No bony destructive process noted. ZZZ_DO_NOT _USE_DIVIS ION OF RADIOLOGY Provider, Slim Jauregui - 03/22/2022 [...] interstitial changes. No superimposed acute radiographic abnormality. Client Engagement Specialist: PSCB Transcribe Date/Time: Mar 22 2022 12:09P Dictated by : SARINA BAUGH MD This examination was interpreted and the report reviewed and electronically signed by: SARINA BAUGH MD on Mar 22 2022 12:11PM EST [facility] XR Chest PA and LateralOrder ed By: Ccf Provider on 03-22-2022 [facility] XR Chest PA and Lateralon Radiology Study observation (narrative) [facility] Absolute lymphocyte counton 03-11-2022 Lymphocytes Auto (Unsp spec) [#/Vol] 2.35 10*3/uL 0.83-4.51 [facility] Work Phone: Basophil percentageon 2021 Basophil percentage 2.2 mg/dL 2.5-4.9 [facility]: [phone] Basophils/100 WBC (Bld) 0.5 % 0-1 [facility] Work Phone: Chloride [Moles/Vol] 103 mmol/L 98-107 [facility]: [phone] Cholesterol [Mass/Vol] 143 mg/dL <200 [facility] Work Phone: [phone] Comment on above: <200 mg/dL Desirable 200-240 mg/dL Borderline >240 mg/dL High Risk Eosinophils/100 WBC (Bld) 1.3 % 0-5 [facility] Work Phone: [phone] Glucose [Mass/Vol] 173 mg/dL 74-106 [facility] Work Phone: [phone] Comment on above: Fasting Glucose resu lt greater than or equal to 126 mg/dL suggests DIABETES MELLITUS per A.D.A. criteria. Neutrophils (Bld) [#/Vol] 4.7 10*3/uL 2.0-7.7 [facility] Work Phone: [phone] Neutrophils/100 WBC (Bld) 60.9 % 47-70 [facility] Work Phone: [phone] Potassium [Moles/Vol] 3.9 mmol/L 3.5-5.1 [facility] Work Phone: [phone] Sodium [Moles/Vol] 137 mmol/L 136-145 [facility] Work Phone: [phone] Triglyceride [Mass/Vol] 97 mg/dL <199 [facility] Work Phone: [phone] Comment on above: The drugs N-Acetylcy steine and Metamizole may falsely depress this assay.Serum Triglycerides Reference Interval Normal <150 mg/dL Borderline high 150 - 199 mg/dL High 200 - 499 mg/dL Very High > or = 500 mg/dL WBC (Bld) [#/Vol] 7.7 10*3/uL 4.4-11.0 [facility] Work Phone: [phone] Blood erythrocytes count (nu mber/volume)on 03-11-2022 RBC (Bld) [#/Vol] 4.19 10*6/uL 4.2-5.4 [facility] Work Phone: Blood hemoglobin measurement (mass/volume)on 03-11-2022 Hemoglobin (Bld) [Mass/Vol] 12.7 g/dL 12.0-15.0 [facility] Work Phone: [phone] Blood lymphocytes/100 leukoc yteson 03-11-2022 Lymphocytes/100 WBC (Bld) 30.4 % 19-41 [facility] Work Phone: Blood monocytes/100 leukocyt eson 03-11-2022 Monocytes/100 WBC (Bld) 6.6 % 0-10 [facility] Work Phone: Blood platelet mean volumeon 03-11-2022 Platelet mean volume (Bld) [Entitic vol] 9.9 fL 6.2-12.0 [facility] Work Phone: Determination of erythrocyte mean corpuscular volume (MCV)on 03-11-2022 MCV (RBC) [Entitic vol] 90.5 fL 81-99 [facility] Work Phone: Glucose Glucometer (BldC) [M ass/Vol]on 03-11-2022 Glucose [Mass/Vol] 280 mg/dL 74-106 [facility] Work Phone: Comment on above: MANAGEMENT OF PATIEN T CARE PER NURSING PROTOCOL Hematocrit Auto (Bld) [Volum e fraction]on 03-11-2022 Hematocrit (Bld) [Volume fraction] 37.9 % 37-47 [facility] Work Phone: Laboratory - Chemistry and C hemistry - challengeon 03-11-2022 CO2 [Moles/Vol] 27.0 mmol/L 21.0-32.0 [facility] Work Phone: Magnesium [Mass/Vol] 1.7 mg/dL 1.6-2.6 [facility] Work Phone: Urea nitrogen/Creatinine [Mass ratio] 21.0 mg/mg 10-20 [facility] Work Phone: Laboratory - Hematology and Cell countson 03-11-2022 Erythrocyte distribution width (RBC) [Entitic vol] 43.7 fL 35.1-43.9 [facility] Work Phone: Erythrocyte distribution width (RBC) [Ratio] 13.2 % 11.6-14.6 [facility] Work Phone: Immature granulocytes/100 WBC (Bld) 0.300 % 0.0-0.9 [facility] Work Phone: Comment on above: IG% - Immature Granu locytes (promyelocytes, myelocytes and metamyelocytes) > 1% indicates that a LEFT SHIFT is Present. MCH (RBC) [Entitic mass] 30.3 pg 27.0-32.0 [facility] Work Phone: Nucleated RBC/100 WBC (Bld) [Ratio] 0 % 0-5 [facility] Work Phone: MCHC Auto (RBC) [Mass/Vol]on 03-11-2022 MCHC (RBC) [Mass/Vol] 33.5 g/dL 32-36 [facility] Work Phone: No Panel Informationon 03-11 Estimated Creatinine Clearance Calc 41.05 ml/min [facility] Work Phone: Estimated GFR (MDRD) Amer 119 mL/min >60 [facility] Work Phone: Comment on above: GFR Calc Estimated GFR (MDRD) Non-Af Amer 99 mL/min >60 [facility] Work Phone: Comment on above: Non- GFR Calc Platelets bldon 03-11-2022 Platelets (Bld) [#/Vol] 219 10*3/uL 150-450 [facility] Work Phone: Serum or plasma calcium sharmin urement (mass/volume)on 03-11-2022 Calcium [Mass/Vol] 8.8 mg/dL 8.5-10.1 [facility] Work Phone: Serum or plasma cholesterol in HDL measurement (mass/volume)on 03-11-2022 Cholesterol in HDL [Mass/Vol] 57 mg/dL >40 [facility] Work Phone: Comment on above: The drugs N-Acetylcy steine and Metamizole may falsely depress this assay. Reference Range HDL <40 mg/dL Low HDL Cholesterol HDL >or= 60 mg/dL High HDL Cholesterol Serum or plasma cholesterol in VLDL measurement (mass/volume)on 03-11-2022 Cholesterol in VLDL [Mass/Vol] 19 mg/dL 5-40 [facility] Work Phone: Serum or plasma creatinine m easurement (mass/volume)on 03-11-2022 Creatinine [Mass/Vol] 0.62 mg/dL 0.55-1.02 [facility] Work Phone: Comment on above: The validity of the calculated GFR & GFRAA in patients over 70 years has not been determined. Clinical correlation is essential. Serum or plasma low density lipoprotein (LDL) cholesterol measurement (mass/volume)on 03-11-2022 Cholesterol in LDL [Mass/Vol] 67 mg/dL 0-130 [facility] Work Phone: Serum or plasma urea nitroge n measurement (mass/volume)on 03-11-2022 Urea nitrogen [Mass/Vol] 13 mg/dL 7-18 [facility] Work Phone: Thin prep Papanicolaou smear with manual screeningon 03-11-2022 Thin prep Papanicolaou smear with manual screening 7 5-15 [facility] Work Phone: Absolute lymphocyte counton 03-10-2022 Lymphocytes Auto (Unsp spec) [#/Vol] 2.05 10*3/uL 0.83-4.51 [facility] Work Phone: Basophil percentageon 2021 Basophils/100 WBC (Bld) 0.5 % 0-1 [facility] Work Phone: Chloride [Moles/Vol] 102 mmol/L 98-107 [facility] Work Phone: Eosinophils/100 WBC (Bld) 2.1 % 0-5 [facility] Work Phone: [phone] Glucose [Mass/Vol] 117 mg/dL 74-106 [facility] Work Phone: [phone] Comment on above: Fasting Glucose resu lt from 100 to 125 mg/dL suggests IMPAIRED HOMEOSTASIS per A.D.A. criteria. Neutrophils (Bld) [#/Vol] 5.0 10*3/uL 2.0-7.7 [facility] Work Phone: [phone] Neutrophils/100 WBC (Bld) 64.5 % 47-70 [facility] Work Phone: [phone] Potassium [Moles/Vol] 3.6 mmol/L 3.5-5.1 [facility] Work Phone: [phone] Comment on above: Slight Hemolysis, Re sult may be falsely increased. Sodium [Moles/Vol] 136 mmol/L 136-145 [facility] Work Phone: [phone] WBC (Bld) [#/Vol] 7.8 10*3/uL 4.4-11.0 [facility] Work Phone: [phone] Blood erythrocytes count (nu mber/volume)on 03-10-2022 RBC (Bld) [#/Vol] 4.43 10*6/uL 4.2-5.4 [facility] Work Phone: [phone] Blood hemoglobin measurement (mass/volume)on 03-10-2022 Hemoglobin (Bld) [Mass/Vol] 13.4 g/dL 12.0-15.0 [facility] Work Phone: Blood lymphocytes/100 leukoc yteson 03-10-2022 Lymphocytes/100 WBC (Bld) 26.3 % 19-41 [facility] Work Phone: Blood monocytes/100 leukocyt eson 03-10-2022 Monocytes/100 WBC (Bld) 6.3 % 0-10 [facility] Work Phone: Blood platelet mean volumeon 03-10-2022 Platelet mean volume (Bld) [Entitic vol] 9.9 fL 6.2-12.0 [facility] Work Phone: Determination of erythrocyte mean corpuscular volume (MCV)on 03-10-2022 MCV (RBC) [Entitic vol] 91.4 fL 81-99 [facility] Work Phone: Glucose Glucometer (BldC) [M ass/Vol]on 03-10-2022 Glucose [Mass/Vol] 114 mg/dL 74-106 [facility] Work Phone: Comment on above: MANAGEMENT OF PATIEN T CARE PER NURSING PROTOCOL Hematocrit Auto (Bld) [Volum e fraction]on 03-10-2022 Hematocrit (Bld) [Volume fraction] 40.5 % 37-47 [facility] Work Phone: INR in Blood by Coagulation assayon 03-10-2022 INR Coag (Bld) [Relative time] 1.0 {INR} [facility] Work Phone: Laboratory - Chemistry and C hemistry - challengeon 03-10-2022 CO2 [Moles/Vol] 30.0 mmol/L 21.0-32.0 [facility] Work Phone: Urea nitrogen/Creatinine [Mass ratio] 19.0 mg/mg 10-20 [facility] Work Phone: Laboratory - Coagulationon 0 03-10-2022 aPTT Coag (Bld) [Time] 27.0 s 24.1-36.2 [facility] Work Phone: PT Coag (PPP) [Time] 12.9 s 11.7-14.9 [facility] Work Phone: Laboratory - Hematology and Cell countson 03-10-2022 Erythrocyte distribution width (RBC) [Entitic vol] 44.5 fL 35.1-43.9 [facility] Work Phone: Erythrocyte distribution width (RBC) [Ratio] 13.3 % 11.6-14.6 [facility] Work Phone: Immature granulocytes/100 WBC (Bld) 0.300 % 0.0-0.9 [facility] Work Phone: Comment on above: IG% - Immature Granu locytes (promyelocytes, myelocytes and metamyelocytes) > 1% indicates that a LEFT SHIFT is Present. MCH (RBC) [Entitic mass] 30.2 pg 27.0-32.0 [facility] Work Phone: Nucleated RBC/100 WBC (Bld) [Ratio] 0 % 0-5 [facility] Work Phone: MCHC Auto (RBC) [Mass/Vol]on 03-10-2022 MCHC (RBC) [Mass/Vol] 33.1 g/dL 32-36 [facility] Work Phone: No Panel Informationon 03-10 Estimated Creatinine Clearance Calc 41.05 ml/min [facility] Work Phone: Estimated GFR (MDRD) Amer 90 mL/min >60 [facility] Work Phone: Comment on above: GFR Calc Estimated GFR (MDRD) Non-Af Amer 75 mL/min >60 [facility] Work Phone: Comment on above: Non- GFR Calc Thyroid Stimulating Hormone (TSH) 0.51 uIU/mL 0.358-3.74 [facility] Work Phone: Troponin I High Sensitivity 8 pg/mL 3.0-54.0 [facility] Work Phone: Comment on above: Please Note: New Kami t Units and Gender Specific Reference Ranges. For more information see Policy Stat Procedure [place] High Sensitivity Troponin (TNIH) and attachments. Platelets bldon 03-10-2022 Platelets (Bld) [#/Vol] 212 10*3/uL 150-450 [facility] Work Phone: Serum or plasma calcium sharmin urement (mass/volume)on 03-10-2022 Calcium [Mass/Vol] 9.0 mg/dL 8.5-10.1 [facility] Work Phone: Serum or plasma creatinine m easurement (mass/volume)on 03-10-2022 Creatinine [Mass/Vol] 0.79 mg/dL 0.55-1.02 [facility] Work Phone: Comment on above: The validity of the calculated GFR & GFRAA in patients over 70 years has not been determined. Clinical correlation is essential. Serum or plasma urea nitroge n measurement (mass/volume)on 03-10-2022 Urea nitrogen [Mass/Vol] 15 mg/dL 7-18 [facility] Work Phone: Thin prep Papanicolaou smear with manual screeningon 03-10-2022 Thin prep Papanicolaou smear with manual screening 4 5-15 [facility] Work Phone: Whole blood hemoglobin A1c/t otal hemoglobin ratio (mass fraction)on 03-10-2022 HbA1c (Bld) [Mass fraction] 6.7 % 3.8-5.6 [facility] Work Phone: Comment on above: Normal < 5.7 % Predi abetic 5.7 - 6.4 % Diabetic >or= 6.5 % Please note range changes. AFB Cult and Stainon 018 AFB Cult and Stain Smear Result - No ac id fast bacilli seen by fluorochrome stain Culture Result - No Acid Fast Bacilli isolated after 46 days [facility] Comment on above: Performed By: #### A FC ####[facility], [place] [phone] BRIEF OP NOTon 10-27-2017 BRIEF OP NOT HNO ID: [id number] thor: Yashira Coyne: Pulmonary DiseaseAuthor Type: PhysicianType: Brief Op NoteFiled: 10/27/2017 11:58 AMNote Text:10/27/2017Shannon Leija [id number] bronchoscopy with endobronchial biopsy of the right [...] microbiology analysis.Full note in Provation.Yashira Giordano MD, [facility] [address] [address]I: [phone]: [phone] [facility] Fungal Cultureon 10-27-2017 Fungal Culture Sp. Request/Comment: - Specimen received in sterile container. Culture Result - No Fungus isolated after 32 days [facility] Comment on above: Performed By: #### F CUL ####[facility] [address] [place], [place] [phone] Fungal Smearon 10-27-2017 Fungal Smear Sp. Request/Comment: - Specimen received in sterile container. Smear Result - No fungus seen. [facility] Comment on above: Performed By: #### F UNGSM ####[facility], [place] [phone] HISTORY PHYSICALon 8 HISTORY PHYSICAL HNO ID: [id number] thor: Yashira GiordanoService: Pulmonary DiseaseAuthor Type: PhysicianType: [...] 09/29/2017.SIGNATURE: Yashira Giordano MD PATIENT NAME: Shannon Matson: October 27, 2017 : 10:39 AM PAGER: [phone] [facility] NURSING PROGon 10-27-2017 NURSING PROG HNO ID: [id number] thor: Darleen (Rn) Susan RNService: NursingAuthor Type: Registered NurseType: Nursing Progress NoteFiled: 10/27/2017 11:05 AMNote Text: Nursing Progress NotePatient Name: Shannon MartinezRN: [id number] Location: [place] Endo/[place] Endo pt ready for OR, call light in reach, pt ok for friend to stay in waitingroom a this time, Needs consent signed prior to ORThis note was completed by: Darleen Davis RN [facility] OPERATIVE NOon 10-27-2017 OPERATIVE NO HNO ID: [id number] thor: Yashira Coyne: Pulmonary DiseaseAuthor Type: PhysicianType: Operative ReportFiled: 10/27/2017 11:58 AMNote Text:10/27/2017Shannon Leija [id number] bronchoscopy with endobronchial biopsy of the right [...] microbiology analysis.Full note in Provation.Yashira Giordano MD, [facility] [address] [address]K: [phone]: [phone] [facility] PROCEDUREon 10-27-2017 PROCEDURE HNO ID: [id number] thor: Yashira Coyne: Pulmonary DiseaseAuthor Type: PhysicianType: ProceduresFiled: 10/27/2017 11:58 AMNote Text:10/27/2017Shannon Leija [id number] bronchoscopy with endobronchial biopsy of the right [...] microbiology analysis.Full note in Provation.Yashira Giordano MD, [facility] [address] [address]N: [phone]: [phone] [facility] PT EDon 10-27-2017 PT ED HNO ID: [id number] thor: Michael GambinoRnARUNA Galindoervice: NursingAuthor Type: Registered NurseType: Patient EducationFiled: 10/27/2017 1:38 PMNote Text:POST OP LEARNING RESPONSEINSTRUCTION PROVIDED TO: PatientMETHOD OF INSTRUCTION: Written instruction - handoutsVerbal instructionPATIENT / FAMILY RESPONSE: Verbalizes understanding of: POST-PROCEDUREINSTRUCTIONS- Correct actions to take to reduce post procedurecomplicationsFOLLO W-UP PLAN: Patient instructed to call with any further issuesSUPPLEMENTAL MATERIAL: NoneREFERRAL (RECOMMENDATION): NoneElectronically Signed By: Michael Carlisle RN [facility] PT ED HNO ID: [id number] thor: ARUNA Leija Rnervice: NursingAuthor Type: Registered NurseType: Patient EducationFiled: 10/27/2017 11:08 AMNote Text:PRE OP LEARNING ASSESSMENTPROCEDURE/SURGERY : SURGERY: BronchoscopyREADINESS TO LEARNCOGNITIVE ABILITY: Alert and orientedMOTIVATION TO LEARN: EagerFAMILY SUPPORT: friend out in waiting roomPATIENT LEARNS BEST BY: Written Instruction - Hand-outsVerbal InstructionFACTORS AFFECTING LEARNING: NonePHYSICAL LIMITATIONS AFFECTING LEARNING: NoneElectronically Signed By: Darleen Davis RN [facility] Respiratory Cult/Stainon Respiratory Cult/Stain Smear Result - Ra re Gram positive cocci --> ABNORMAL ALERT Few Polymorphonuclear leukocytes Few Mononuclear cells Culture Result - Few Normal respiratory stewart present Critically abnormal [facility] Comment on above: Performed By: #### R CULST ####[facility] [address], [place] [phone] SURGICAL PATHOLOGYon 018 SURGICAL PATHOLOGY [facility]: [id number] Physician: Yashira Giordano M.D. FIN AL DIAGNOSISLung, [...] submitted in one cassette.Gross examination performed at [facility], [address] [place] [id number] 10/27/2017 3:27:21 PMPatient ID #: [id number] of Report: 10/30/2017Date of Procedure: 10/27/2017Date of Receipt: 10/27/2017Submitted by: Yashira Giordano M.D.Location: MEENDDiagnostic interpretation performed at [address] [address] [facility] Comment on above: Performed By: #### P ATHS ####[facility] [address] [place], [place] [phone] HOSPon 10-18-2017 HOSP Patient:Madi Leija AMRN: Height:5' [...] tabletsimvastatin (ZOCOR) 10 mg tabletAspirin 81 mg AepHjedertdpaprt-Rlnszgyy-B utein (CENTRUM SILVER) ORAL Tabblood sugar diagnostic [...] days for the following basenames: K,HCTProgress Notes ([facility]):Charisse Lagos LPN 10/13/2017 11:07 AM SignedPatient phones requesting refills as follows:Pending Prescriptions Disp Refills FLUTICASONE 50 MCG/ACTUATION NASAL SPRAY,SUSPENSION 3 Bottle 3 Sig: Use 1 Purdys in each nostril daily at bedtime. Please review and advise.Charisse Matthew LPNProgress Notes ([facility]):Laura Therese TEIXEIRA 10/09/2017 12:28 PM SignedPatient returning call in regards to the my chart message. States she has seenDr. Rodriguez in the past for ear problems. Is willing to go to [place] or where yourecommend.Yashira Giordano MD 10/13/2017 5:10 PM SignedPatient familiar to me.I can proceed with outpatient Flexible bronchoscopy in [place] 10/25 or 10/27.Order placed.Yashira Giordano MD, [facility] [address] [address]M: [phone]: [phone] Mack [facility] 10/18/2017 10:43 AM SignedSpoke with patient, she has been scheduled for 10/27 at 12:[address] [facility] Vital Signs Date Time Vital Sign Value Performing Clinician Facility 04-13-2025 00:43-0400 Body temperature 99 [degF] Dr. Darin Alonzo MD Work Phone: [facility] 04-13-2025 00:43-0400 Diastolic blood pressure 67 mm[Hg] Dr. Darin Alonzo MD Work Phone: [facility] 04-13-2025 00:43-0400 Heart rate 82 /min Dr. Darin Alonzo MD Work Phone: [facility] 04-13-2025 00:43-0400 Respiratory rate 14 /min Dr. Darin Alonzo MD Work Phone: [facility] 04-13-2025 00:43-0400 SaO2% (BldA) [Mass fraction] 98 % Dr. Darin Alonzo MD Work Phone: [facility] 04-13-2025 00:43-0400 Systolic blood pressure 137 mm[Hg] Dr. Darin Alonzo MD Work Phone: [facility] 04-12-2025 21:24-0400 Body height 165.[address] Darin Alonzo MD Work Phone: [facility] 04-12-2025 21:24-0400 Body mass index (BMI) [Ratio] 26.4 kg/m2 Dr. Darin Alonzo MD Work Phone: [facility] 04-12-2025 21:24-0400 Body weight 71.[address] Darin Alonzo MD Work Phone: [facility] 03-07-2025 07:02-0400 Body mass index (BMI) [Ratio] 26.13 kg/m2 Griselda Older ROR ENGINEER.[employer]POSAL PLANT OPERATOR Work Phone: [facility] 03-07-2025 07:02-0400 Body weight 71.22 kg Griselda Older ROR ENGINEER.DISPOSAL PLANT OPERATOR Work Phone: [facility] 03-07-2025 07:02-0400 Diastolic blood pressure 60 mm[Hg] Griselda Older ROR ENGINEER.DISPOSAL PLANT OPERATOR Work Phone: [facility] 03-07-2025 07:02-0400 Heart rate 84 /min Griselda Older ROR ENGINEER.DISPOSAL PLANT OPERATOR Work Phone: [facility] 03-07-2025 07:02-0400 Respiratory rate 16 /min Griselda Older ROR ENGINEER.DISPOSAL PLANT OPERATOR Work Phone: [facility] 03-07-2025 07:02-0400 SaO2% (BldA) [Mass fraction] 97 % Griselda Older ROR ENGINEER.DISPOSAL PLANT OPERATOR Work Phone: [facility] 03-07-2025 07:02-0400 Systolic blood pressure 122 mm[Hg] Griselda Older ROR ENGINEER.DISPOSAL PLANT OPERATOR Work Phone: [facility] 02-07-2025 07:03-0400 Body mass index (BMI) [Ratio] 26.46 kg/m2 Griselda Older ROR ENGINEER.DISPOSAL PLANT OPERATOR Work Phone: [facility] 02-07-2025 07:03-0400 Body weight 72.12 kg Griselda Older ROR ENGINEER.DISPOSAL PLANT OPERATOR Work Phone: [facility] 02-07-2025 07:03-0400 Diastolic blood pressure 64 mm[Hg] Griselda Older ROR ENGINEER.DISPOSAL PLANT OPERATOR Work Phone: [facility] 02-07-2025 07:03-0400 Heart rate 74 /min Griselda Older ROR ENGINEER.DISPOSAL PLANT OPERATOR Work Phone: [facility] 02-07-2025 07:03-0400 Respiratory rate 16 /min Griselda Older ROR ENGINEER.DISPOSAL PLANT OPERATOR Work Phone: [facility] 02-07-2025 07:03-0400 SaO2% (BldA) [Mass fraction] 98 % Griselda Older ROR ENGINEER.DISPOSAL PLANT OPERATOR Work Phone: [facility] 02-07-2025 07:03-0400 Systolic blood pressure 136 mm[Hg] Griselda Older ROR ENGINEER.DISPOSAL PLANT OPERATOR Work Phone: [facility] 01-10-2025 07:10-0400 Body mass index (BMI) [Ratio] 26.29 kg/m2 Griselda Older ROR ENGINEER.DISPOSAL PLANT OPERATOR Work Phone: [facility] 01-10-2025 07:10-0400 Body weight 71.67 kg Griselda Older ROR ENGINEER.DISPOSAL PLANT OPERATOR Work Phone: [facility] 01-10-2025 07:10-0400 Diastolic blood pressure 68 mm[Hg] Griselda Older ROR ENGINEER.DISPOSAL PLANT OPERATOR Work Phone: [facility] 01-10-2025 07:10-0400 Heart rate 78 /min Griselda Older ROR ENGINEER.DISPOSAL PLANT OPERATOR Work Phone: [facility] 01-10-2025 07:10-0400 Respiratory rate 16 /min Griselda Older ROR ENGINEER.DISPOSAL PLANT OPERATOR Work Phone: [facility] 01-10-2025 07:10-0400 SaO2% (BldA) [Mass fraction] 99 % Griselda Older ROR ENGINEER.DISPOSAL PLANT OPERATOR Work Phone: [facility] 01-10-2025 07:10-0400 Systolic blood pressure 130 mm[Hg] Griselda Older ROR ENGINEER.DISPOSAL PLANT OPERATOR Work Phone: [facility] 12-13-2024 07:56-0400 Body mass index (BMI) [Ratio] 25.79 kg/m2 Dorie Click ROR ENGINEER.DISPOSAL PLANT OPERATOR Work Phone: [facility] 12-13-2024 07:56-0400 Body weight 70.31 kg Dorie Click ROR ENGINEER.DISPOSAL PLANT OPERATOR Work Phone: [facility] 12-13-2024 07:56-0400 Diastolic blood pressure 64 mm[Hg] Dorie Click ROR ENGINEER.DISPOSAL PLANT OPERATOR Work Phone: [facility] 12-13-2024 07:56-0400 Heart rate 82 /min Dorie Click ROR ENGINEER.DISPOSAL PLANT OPERATOR Work Phone: [facility] 12-13-2024 07:56-0400 Respiratory rate 17 /min Dorie Click ROR ENGINEER.DISPOSAL PLANT OPERATOR Work Phone: [facility] 12-13-2024 07:56-0400 SaO2% (BldA) [Mass fraction] 99 % Dorie Click ROR ENGINEER.DISPOSAL PLANT OPERATOR Work Phone: [facility] 12-13-2024 07:56-0400 Systolic blood pressure 130 mm[Hg] Dorie Click ROR ENGINEER.DISPOSAL PLANT OPERATOR Work Phone: [facility] [facility] 10-11-2024 08:20-0500 Diastolic blood pressure 68 mm[Hg] Griselda Older ROR ENGINEER.DISPOSAL PLANT OPERATOR Work Phone: [facility] Comment on above: BP [facility] 10-11-2024 08:20-0500 Systolic blood pressure 132 mm[Hg] Griselda Older ROR ENGINEER.DISPOSAL PLANT OPERATOR Work Phone: [facility] Comment on above: BP [facility] 10-11-2024 07:55-0500 Body mass index (BMI) [Ratio] 26.13 kg/m2 Griselda Older ROR ENGINEER.DISPOSAL PLANT OPERATOR Work Phone: [facility] 10-11-2024 07:55-0500 Body weight 71.22 kg Griselda Older ROR ENGINEER.DISPOSAL PLANT OPERATOR Work Phone: [facility] 10-11-2024 07:55-0500 Heart rate 84 /min Griselda Older ROR ENGINEER.DISPOSAL PLANT OPERATOR Work Phone: [facility] 10-11-2024 07:55-0500 Respiratory rate 16 /min Griselda Older ROR ENGINEER.DISPOSAL PLANT OPERATOR Work Phone: [facility] 10-11-2024 07:55-0500 SaO2% (BldA) [Mass fraction] 98 % Griselda Older ROR ENGINEER.DISPOSAL PLANT OPERATOR Work Phone: [facility] 2024 07:22-0400 Body mass index (BMI) [Ratio] 26.13 kg/m2 Griselda Older ROR ENGINEER.DISPOSAL PLANT OPERATOR Work Phone: [facility] 2024 07:22-0400 Body weight 71.22 kg Griselda Older ROR ENGINEER.DISPOSAL PLANT OPERATOR Work Phone: [facility] Comment on above: shoes on 2024 07:22-0400 Diastolic blood pressure 68 mm[Hg] Griselda Older ROR ENGINEER.DISPOSAL PLANT OPERATOR Work Phone: [facility] 2024 07:22-0400 Heart rate 80 /min Griselda Older ROR ENGINEER.DISPOSAL PLANT OPERATOR Work Phone: [facility] 2024 07:22-0400 Respiratory rate 16 /min Girselda Older ROR ENGINEER.DISPOSAL PLANT OPERATOR Work Phone: [facility] 2024 07:22-0400 SaO2% (BldA) [Mass fraction] 97 % Griselda Older ROR ENGINEER.DISPOSAL PLANT OPERATOR Work Phone: [facility] 2024 07:22-0400 Systolic blood pressure 118 mm[Hg] Griselda Older ROR ENGINEER.DISPOSAL PLANT OPERATOR Work Phone: [facility] 06-14-2024 08:51-0400 Body mass index (BMI) [Ratio] 26.29 kg/m2 Dorie Click ROR ENGINEER.DISPOSAL PLANT OPERATOR Work Phone: [facility] 06-14-2024 08:51-0400 Body weight 71.67 kg Dorie Click ROR ENGINEER.DISPOSAL PLANT OPERATOR Work Phone: [facility] 03-21-2024 07:20-0400 Body mass index (BMI) [Ratio] 25.29 kg/m2 Griselda Older ROR ENGINEER.DISPOSAL PLANT OPERATOR Work Phone: [facility] 03-21-2024 07:20-0400 Body weight 68.95 kg Griselda Older ROR ENGINEER.DISPOSAL PLANT OPERATOR Work Phone: [facility] 03-21-2024 07:20-0400 Diastolic blood pressure 68 mm[Hg] Griselda Older ROR ENGINEER.DISPOSAL PLANT OPERATOR Work Phone: [facility] 03-21-2024 07:20-0400 Heart rate 99 /min Griselda Older ROR ENGINEER.DISPOSAL PLANT OPERATOR Work Phone: [facility] 03-21-2024 07:20-0400 Respiratory rate 16 /min Griselda Older ROR ENGINEER.DISPOSAL PLANT OPERATOR Work Phone: [facility] 03-21-2024 07:20-0400 SaO2% (BldA) [Mass fraction] 99 % ROR ENGINEER.DISPOSAL PLANT OPERATOR Work Phone: [facility] 03-21-2024 07:20-0400 Systolic blood pressure 134 mm[Hg] Griselda ROR ENGINEER.DISPOSAL PLANT OPERATOR Work Phone: [facility] 02-22-2024 15:20-0400 Body mass index (BMI) [Ratio] 26.41 kg/m2 Darleen Orr ROR ENGINEER.DISPOSAL PLANT OPERATOR Work Phone: [facility] 02-22-2024 15:20-0400 Body temperature 97.81 [degF] Darleen Orr ROR ENGINEER.DISPOSAL PLANT OPERATOR Work Phone: [facility] 02-22-2024 15:20-0400 Body weight 72 kg Darleen Orr ROR ENGINEER.DISPOSAL PLANT OPERATOR Work Phone: [facility] 02-22-2024 15:20-0400 Diastolic blood pressure 79 mm[Hg] Darleen Orr ROR ENGINEER.DISPOSAL PLANT OPERATOR Work Phone: [facility] 02-22-2024 15:20-0400 Heart rate 78 /min Darleen Orr ROR ENGINEER.DISPOSAL PLANT OPERATOR Work Phone: [facility] 02-22-2024 15:20-0400 Respiratory rate 20 /min Darleen Orr ROR ENGINEER.DISPOSAL PLANT OPERATOR Work Phone: [facility] 02-22-2024 15:20-0400 SaO2% (BldA) [Mass fraction] 98 % Darleen Orr ROR ENGINEER.DISPOSAL PLANT OPERATOR Work Phone: [facility] 02-22-2024 15:20-0400 Systolic blood pressure 169 mm[Hg] Darleen Orr ROR ENGINEER.DISPOSAL PLANT OPERATOR Work Phone: [facility] 12-15-2023 07:20-0400 Body weight 72.12 kg Griselda Older ROR ENGINEER.DISPOSAL PLANT OPERATOR Work Phone: [facility] 12-15-2023 07:20-0400 Diastolic blood pressure 70 mm[Hg] Griselda Older ROR ENGINEER.DISPOSAL PLANT OPERATOR Work Phone: [facility] 12-15-2023 07:20-0400 Heart rate 72 /min Griselda Older ROR ENGINEER.DISPOSAL PLANT OPERATOR Work Phone: [facility] 12-15-2023 07:20-0400 Respiratory rate 16 /min Griselda Older ROR ENGINEER.DISPOSAL PLANT OPERATOR Work Phone: [facility] 12-15-2023 07:20-0400 SaO2% (BldA) [Mass fraction] 98 % Griselda Older ROR ENGINEER.DISPOSAL PLANT OPERATOR Work Phone: [facility] 12-15-2023 07:20-0400 Systolic blood pressure 128 mm[Hg] Griselda Older ROR ENGINEER.DISPOSAL PLANT OPERATOR Work Phone: [facility] 11-28-2023 09:58-0400 Body weight 73.12 kg Pamela Aranda MD Work Phone: [facility] 11-28-2023 09:58-0400 Diastolic blood pressure 52 mm[Hg] Pamela Aranda MD Work Phone: [facility] 11-28-2023 09:58-0400 Heart rate 73 /min Pamela Aranda MD Work Phone: [facility] 11-28-2023 09:58-0400 Respiratory rate 14 /min Pamela Aranda MD Work Phone: [facility] 11-28-2023 09:58-0400 SaO2% (BldA) [Mass fraction] 96 % Pamela Aranda MD Work Phone: [facility] 11-28-2023 09:58-0400 Systolic blood pressure 116 mm[Hg] Pamela Aranda MD Work Phone: [facility] 05-29-2023 10:23-0400 Body height 165.1 cm Pamela Aranda MD Work Phone: [facility] 05-29-2023 10:23-0400 Body weight 73.48 kg Pamela Aranda MD Work Phone: [facility] 05-29-2023 10:23-0400 Diastolic blood pressure 60 mm[Hg] Pamela Aranda MD Work Phone: [facility] 05-29-2023 10:23-0400 Heart rate 76 /min Pamela Aranda MD Work Phone: [facility] 05-29-2023 10:23-0400 Respiratory rate 21 /min Pamela Aranda MD Work Phone: [facility] 05-29-2023 10:23-0400 SaO2% (BldA) [Mass fraction] 97 % Pamela Aranda MD Work Phone: [facility] 05-29-2023 10:23-0400 Systolic blood pressure 132 mm[Hg] Pamela Aranda MD Work Phone: [facility] 05-19-2023 08:41-0400 Body weight 71.67 kg Griselda Older ROR ENGINEER.DISPOSAL PLANT OPERATOR Work Phone: [facility] 05-19-2023 08:41-0400 Diastolic blood pressure 68 mm[Hg] Griselda Older ROR ENGINEER.DISPOSAL PLANT OPERATOR Work Phone: [facility] 05-19-2023 08:41-0400 Heart rate 78 /min Griselda Older ROR ENGINEER.DISPOSAL PLANT OPERATOR Work Phone: [facility] 05-19-2023 08:41-0400 Respiratory rate 16 /min Griselda Older ROR ENGINEER.DISPOSAL PLANT OPERATOR Work Phone: [facility] 05-19-2023 08:41-0400 SaO2% (BldA) [Mass fraction] 98 % Griselda Older ROR ENGINEER.DISPOSAL PLANT OPERATOR Work Phone: [facility] 05-19-2023 08:41-0400 Systolic blood pressure 128 mm[Hg] Griselda Older ROR ENGINEER.DISPOSAL PLANT OPERATOR Work Phone: [facility] 05-17-2023 11:29-0400 Body height 162.[address] Darin Alonzo Work Phone: [facility] 05-17-2023 11:29-0400 Body weight 72.[address] Darin Alonzo Work Phone: [facility] 04-11-2023 12:07-0400 Body height 162.[address] Darin Alonzo Work Phone: [facility] 04-11-2023 12:07-0400 Body weight 74.[address] Darin Alonzo Work Phone: [facility] 04-10-2023 07:57-0400 Body temperature 98.01 [degF] Griselda Older ROR ENGINEER.DISPOSAL PLANT OPERATOR Work Phone: [facility] 04-10-2023 07:57-0400 Body weight 73.48 kg Griselda Older ROR ENGINEER.DISPOSAL PLANT OPERATOR Work Phone: [facility] 04-10-2023 07:57-0400 Diastolic blood pressure 70 mm[Hg] Griselda Older ROR ENGINEER.DISPOSAL PLANT OPERATOR Work Phone: [facility] 04-10-2023 07:57-0400 Heart rate 76 /min Griselda Older ROR ENGINEER.DISPOSAL PLANT OPERATOR Work Phone: [facility] 04-10-2023 07:57-0400 Respiratory rate 16 /min Griselda Older ROR ENGINEER.DISPOSAL PLANT OPERATOR Work Phone: [facility] 04-10-2023 07:57-0400 SaO2% (BldA) [Mass fraction] 100 % Griselda Older ROR ENGINEER.DISPOSAL PLANT OPERATOR Work Phone: [facility] 04-10-2023 07:57-0400 Systolic blood pressure 142 mm[Hg] Griselda Lema APRN.CNP Work Phone: [facility] 03-21-2023 11:30-0400 Body temperature 98.2 [degF] Dr. Darin Alonzo Work Phone: [facility] 03-21-2023 11:30-0400 Body weight 73.[address] Darin Alonzo Work Phone: [facility] 03-21-2023 11:30-0400 Diastolic blood pressure 73 mm[Hg] Dr. Darin Alonzo Work Phone: [facility] 03-21-2023 11:30-0400 Heart rate 73 /min Dr. Darin Alonzo Work Phone: [facility] 03-21-2023 11:30-0400 Respiratory rate 16 /min Dr. Darin Alonzo Work Phone: [facility] 03-21-2023 11:30-0400 SaO2% (BldA) [Mass fraction] 99 % Dr. Darin Alonzo Work Phone: [facility] 03-21-2023 11:30-0400 Systolic blood pressure 151 mm[Hg] Dr. Darin Alonzo Work Phone: [facility] 03-01-2023 11:15-0400 Body height 162.6 cm Darin Alonzo MD Work Phone: [facility] 03-01-2023 11:15-0400 Body temperature 97 [degF] Darin Alonzo MD Work Phone: [facility] 03-01-2023 11:15-0400 Body weight 73.03 kg Darin Alonzo MD Work Phone: [facility] 03-01-2023 11:15-0400 Diastolic blood pressure 62 mm[Hg] Darin Alonzo MD Work Phone: [facility] 03-01-2023 11:15-0400 Heart rate 84 /min Darin Alonzo MD Work Phone: [facility] 03-01-2023 11:15-0400 Respiratory rate 12 /min Darin Alonzo MD Work Phone: [facility] 03-01-2023 11:15-0400 SaO2% (BldA) [Mass fraction] 97 % Darin Alonzo MD Work Phone: [facility] 03-01-2023 11:15-0400 Systolic blood pressure 136 mm[Hg] Darin Alonzo MD Work Phone: [facility] 11-25-2022 09:52-0400 Body height 162.6 cm Pamela Aranda MD Work Phone: [facility] 11-25-2022 09:52-0400 Body weight 73.48 kg Pamela Aranda MD Work Phone: [facility] 11-25-2022 09:52-0400 Diastolic blood pressure 68 mm[Hg] Pamela Aranda MD Work Phone: [facility] 11-25-2022 09:52-0400 Heart rate 82 /min Pamela Aranda MD Work Phone: [facility] 11-25-2022 09:52-0400 Respiratory rate 12 /min Pamela Aranda MD Work Phone: [facility] 11-25-2022 09:52-0400 SaO2% (BldA) [Mass fraction] 96 % Pamela Aranda MD Work Phone: [facility] 11-25-2022 09:52-0400 Systolic blood pressure 132 mm[Hg] Pamela Aranda MD Work Phone: [facility] 11-25-2022 09:41-0400 Body height 162.6 cm Pulm Wstr Work Phone: [facility] 11-25-2022 09:41-0400 Body weight 73.48 kg Pulm Wstr Work Phone: [facility] 11-25-2022 09:41-0400 Heart rate 82 /min Pulm Wstr Work Phone: [facility] 11-25-2022 09:41-0400 Respiratory rate 12 /min Pulm Wstr Work Phone: [facility] 11-25-2022 09:41-0400 SaO2% (BldA) [Mass fraction] 96 % Pulm Wstr Work Phone: [facility] 11-01-2022 07:57-0500 Body height 162.6 cm Darin Alonzo MD Work Phone: [facility] 11-01-2022 07:57-0500 Body temperature 97.39 [degF] Darin Alonzo MD Work Phone: [facility] 11-01-2022 07:57-0500 Body weight 73.48 kg Darin Alonzo MD Work Phone: [facility] 11-01-2022 07:57-0500 Diastolic blood pressure 64 mm[Hg] Darin Alonzo MD Work Phone: [facility] 11-01-2022 07:57-0500 Heart rate 82 /min Darin Alonzo MD Work Phone: [facility] 11-01-2022 07:57-0500 Respiratory rate 12 /min Darin Alonzo MD Work Phone: [facility] 11-01-2022 07:57-0500 SaO2% (BldA) [Mass fraction] 97 % Darin Alonzo MD Work Phone: [facility] 11-01-2022 07:57-0500 Systolic blood pressure 130 mm[Hg] Darin Alonzo MD Work Phone: [facility] 08-01-2022 08:37-0500 Body height 162.6 cm Darin Alonzo MD Work Phone: [facility] 08-01-2022 08:37-0500 Body temperature 97.7 [degF] Darin Alonzo MD Work Phone: [facility] 08-01-2022 08:37-0500 Body weight 74.39 kg Darin Alonzo MD Work Phone: [facility] 08-01-2022 08:37-0500 Diastolic blood pressure 62 mm[Hg] Darin Alonzo MD Work Phone: [facility] 08-01-2022 08:37-0500 Heart rate 83 /min Darin Alonzo MD Work Phone: [facility] 08-01-2022 08:37-0500 Respiratory rate 12 /min Darin Alonzo MD Work Phone: [facility] 08-01-2022 08:37-0500 SaO2% (BldA) [Mass fraction] 99 % Darin Alonzo MD Work Phone: [facility] 08-01-2022 08:37-0500 Systolic blood pressure 130 mm[Hg] Darin Alonzo MD Work Phone: [facility] 07-15-2022 08:57-0400 Body weight 74.84 kg Christy Clay PA-C Work Phone: [facility] 07-15-2022 08:57-0400 Diastolic blood pressure 80 mm[Hg] Christy Clay PA-C Work Phone: [facility] 07-15-2022 08:57-0400 Heart rate 81 /min Christy Clay PA-C Work Phone: [facility] 07-15-2022 08:57-0400 Respiratory rate 15 /min Christy Clay PA-C Work Phone: [facility] 07-15-2022 08:57-0400 SaO2% (BldA) [Mass fraction] 99 % Christy Clay PA-C Work Phone: [facility] 07-15-2022 08:57-0400 Systolic blood pressure 138 mm[Hg] Christy Clay PA-C Work Phone: [facility] 06-17-2022 12:59-0400 Body weight 73.94 kg Christy Caly PA-C Work Phone: [facility] 06-17-2022 12:59-0400 Diastolic blood pressure 80 mm[Hg] Christy Clay PA-C Work Phone: [facility] 06-17-2022 12:59-0400 Heart rate 99 /min Christy Clay PA-C Work Phone: [facility] 06-17-2022 12:59-0400 Respiratory rate 19 /min Christy Clay PA-C Work Phone: [facility] 06-17-2022 12:59-0400 SaO2% (BldA) [Mass fraction] 98 % Christy Clay PA-C Work Phone: [facility] 06-17-2022 12:59-0400 Systolic blood pressure 142 mm[Hg] Christy Clay PA-C Work Phone: [facility] 06-15-2022 07:59-0400 Body temperature 97.7 [degF] Griselda Older ROR ENGINEER.DISPOSAL PLANT OPERATOR Work Phone: [facility] 06-15-2022 07:59-0400 Body weight 75.3 kg Griselda Older ROR ENGINEER.DISPOSAL PLANT OPERATOR Work Phone: [facility] 06-15-2022 07:59-0400 Diastolic blood pressure 78 mm[Hg] Griselda Older ROR ENGINEER.DISPOSAL PLANT OPERATOR Work Phone: [facility] 06-15-2022 07:59-0400 Heart rate 82 /min Griselda Older ROR ENGINEER.DISPOSAL PLANT OPERATOR Work Phone: [facility] 06-15-2022 07:59-0400 Respiratory rate 16 /min Griselda Older ROR ENGINEER.DISPOSAL PLANT OPERATOR Work Phone: [facility] 06-15-2022 07:59-0400 SaO2% (BldA) [Mass fraction] 99 % Griselda Older ROR ENGINEER.DISPOSAL PLANT OPERATOR Work Phone: [facility] 06-15-2022 07:59-0400 Systolic blood pressure 140 mm[Hg] Griselda Older ROR ENGINEER.DISPOSAL PLANT OPERATOR Work Phone: [facility] 06-02-2022 12:34-0400 Body temperature 97.7 [degF] Arsh Davalos ROR ENGINEER.DISPOSAL PLANT OPERATOR Work Phone: [facility] 06-02-2022 12:34-0400 Body weight 75.57 kg Arsh Davalos ROR ENGINEER.DISPOSAL PLANT OPERATOR Work Phone: [facility] 06-02-2022 12:34-0400 Diastolic blood pressure 78 mm[Hg] Arsh Davalos ROR ENGINEER.DISPOSAL PLANT OPERATOR Work Phone: [facility] 06-02-2022 12:34-0400 Heart rate 85 /min Arsh Davalos ROR ENGINEER.DISPOSAL PLANT OPERATOR Work Phone: [facility] 06-02-2022 12:34-0400 Respiratory rate 21 /min Arsh Davalos ROR ENGINEER.DISPOSAL PLANT OPERATOR Work Phone: [facility] 06-02-2022 12:34-0400 SaO2% (BldA) [Mass fraction] 98 % Arsh Davalos ROR ENGINEER.DISPOSAL PLANT OPERATOR Work Phone: [facility] 06-02-2022 12:34-0400 Systolic blood pressure 148 mm[Hg] Arsh Davalos ROR ENGINEER.DISPOSAL PLANT OPERATOR Work Phone: [facility] 05-09-2022 08:10-0400 Body weight 73.48 kg Pamela Aranda MD Work Phone: [facility] 04-19-2022 15:190400 Body height 162.6 cm Darin Alonzo MD Work Phone: [facility] 04-19-2022 15:19-0400 Body temperature 97.81 [degF] Darin Alonzo MD Work Phone: [facility] 04-19-2022 15:19-0400 Body weight 74.39 kg Darin Alonzo MD Work Phone: [facility] 04-19-2022 15:19-0400 Diastolic blood pressure 68 mm[Hg] Darin Alonzo MD Work Phone: [facility] 04-19-2022 15:19-0400 Heart rate 80 /min Darin Alonzo MD Work Phone: [facility] 04-19-2022 15:19-0400 Respiratory rate 12 /min Darin Alonzo MD Work Phone: [facility] 04-19-2022 15:19-0400 SaO2% (BldA) [Mass fraction] 99 % Darin Alonzo MD Work Phone: [facility] 04-19-2022 15:19-0400 Systolic blood pressure 140 mm[Hg] Darin Alonzo MD Work Phone: [facility] 03-21-2022 16:11-0400 Body height 162.6 cm Darin Alonzo MD Work Phone: [facility] 03-21-2022 16:11-0400 Body temperature 98.29 [degF] Darin Alonzo MD Work Phone: [facility] 03-21-2022 16:11-0400 Body weight 73.94 kg Darin Alonzo MD Work Phone: [facility] 03-21-2022 16:11-0400 Diastolic blood pressure 72 mm[Hg] Darin Alonzo MD Work Phone: [facility] 03-21-2022 16:11-0400 Heart rate 76 /min Darin Alonzo MD Work Phone: [facility] 03-21-2022 16:11-0400 Respiratory rate 12 /min Darin Alonzo MD Work Phone: [facility] 03-21-2022 16:11-0400 SaO2% (BldA) [Mass fraction] 97 % Darin Alonzo MD Work Phone: [facility] 03-21-2022 16:11-0400 Systolic blood pressure 126 mm[Hg] Darin Alonzo MD Work Phone: [facility] 03-11-2022 08:41-0400 Body temperature 98.4 [degF] Dr. Darin Alonzo Work Phone: [facility] Work Phone: 03-11-2022 08:41-0400 Diastolic blood pressure 72 mm[Hg] Dr. Darin Alonzo Work Phone: [facility] Work Phone: 03-11-2022 08:41-0400 Heart rate 86 /min Dr. Darin Alonzo Work Phone: [facility] Work Phone: 03-11-2022 08:41-0400 Respiratory rate 18 /min Dr. Darin Alonzo Work Phone: [facility] Work Phone: 03-11-2022 08:41-0400 SaO2% (BldA) [Mass fraction] 95 % Dr. Darin Alonzo Work Phone: [facility] Work Phone: 03-11-2022 08:41-0400 Systolic blood pressure 182 mm[Hg] Dr. Darin Alonzo Work Phone: [facility] Work Phone: 03-11-2022 08:21-0400 Body mass index (BMI) [Ratio] 27.1 kg/m2 Dr. Darin Alonzo Work Phone: [facility] Work Phone: 03-10-2022 16:48-0400 Body height 165.[address] Darin Alonzo Work Phone: [facility] Work Phone: 03-10-2022 16:48-0400 Body weight 74.[address] Darin Alonzo Work Phone: [facility] Work Phone: 03-10-2022 16:26-0400 Body temperature 97.9 [degF] [facility] Work Phone: 03-10-2022 16:26-0400 Diastolic blood pressure 68 mm[Hg] [facility] Work Phone: 03-10-2022 16:26-0400 Heart rate 83 /min [facility] Work Phone: 03-10-2022 16:26-0400 Respiratory rate 18 /min [facility] Work Phone: 03-10-2022 16:26-0400 SaO2% (BldA) [Mass fraction] 97 % [facility] Work Phone: 03-10-2022 16:26-0400 Systolic blood pressure 167 mm[Hg] [facility] Work Phone: 03-10-2022 15:15-0400 Body height 165.1 cm [facility] Work Phone: 03-10-2022 15:15-0400 Body mass index (BMI) [Ratio] 27.9 kg/m2 [facility] Work Phone: 03-10-2022 15:15-0400 Body weight 76.1 kg [facility] Work Phone: 03-10-2022 14:57-0400 Body temperature 97 [degF] Nakul Patino MD Work Phone: [facility] 03-10-2022 14:57-0400 Body weight 76.11 kg Nakul Patino MD Work Phone: [facility] 03-10-2022 14:57-0400 Diastolic blood pressure 106 mm[Hg] Nakul Patino MD Work Phone: [facility] 03-10-2022 14:57-0400 Heart rate 77 /min Nakul Patino MD Work Phone: [facility] 03-10-2022 14:57-0400 Respiratory rate 18 /min Nakul Patino MD Work Phone: [facility] 03-10-2022 14:57-0400 SaO2% (BldA) [Mass fraction] 98 % Nakul Patino MD Work Phone: [facility] 03-10-2022 14:57-0400 Systolic blood pressure 182 mm[Hg] Nakul Patino MD Work Phone: [facility] Encounters Encounter Date Encounter Type Care Provider Facility Start: 04-13-2025 Evaluation and management of inpatient Dr. Raj Schroeder DO [facility] Work Phone: Start: 04-09-2025 End: 04-10-2025 Telephone encounter Darin Alonzo MD Work Phone: [facility] [place] Comment on above: Patient Question Start: 03-26-2025 End: 03-28-2025 ambulatory Dorie Gill ROR ENGINEER.DISPOSAL PLANT OPERATOR Work Phone: [facility] Comment on above: [place] Start: 03-07-2025 End: 03-07-2025 Office outpatient visit 25 minutes Griselda Older ROR ENGINEER.DISPOSAL PLANT OPERATOR Work Phone: [facility] [place] Comment on above: Muscle cramps (Prima ry Dx); Insomnia, unspecified type; Gastroesophageal reflux disease without esophagitis; Acute cough; Hypomagnesemia; Hyperlipidemia, unspecified hyperlipidemia type; Essential hypertension; Acquired hypothyroidism; Controlled type 2 diabetes mellitus without complication, unspecified whether tree sapper insulin use (HCC) Start: 03-07-2025 End: 03-07-2025 ambulatory GRISELDA OLDER Facility:[facility] Start: 03-02-2025 End: 03-03-2025 Refill Griselda Older ROR ENGINEER.DISPOSAL PLANT OPERATOR Work Phone: Internal [facility] [place] Comment on above: Med Change Request Start: 02-24-2025 End: 03-04-2025 Refill Dorie Gill ROR ENGINEER.DISPOSAL PLANT OPERATOR Work Phone: Pulmonary Medicine Comment on above: Refill Request Start: 02-23-2025 End: 02-28-2025 ambulatory Griselda Older ROR ENGINEER.DISPOSAL PLANT OPERATOR Work Phone: Internal Medicine [place] Comment on above: [place] Start: 02-21-2025 End: 02-21-2025 ambulatory GRISELDA OLDER Facility:[facility] Start: 02-08-2025 End: 02-12-2025 ambulatory Griselda Older ROR ENGINEER.DISPOSAL PLANT OPERATOR Work Phone: Internal Medicine [place] Comment on above: [place]woods Start: 02-07-2025 End: 02-07-2025 Office outpatient visit 25 minutes Griselda Lema ROR ENGINEER.DISPOSAL PLANT OPERATOR Work Phone: Internal Medicine [place] Comment on above: Muscle cramps (Prima ry Dx); Hypomagnesemia; Gastroesophageal reflux disease without esophagitis; Acute cough; Insomnia, unspecified type Start: 02-07-2025 End: 02-12-2025 ambulatory Griselda Lema ROR ENGINEER.DISPOSAL PLANT OPERATOR Work Phone: Internal Medicine [place] Comment on above: pawoods Start: 02-05-2025 End: 02-10-2025 Follow-up encounter Griselda Lema ROR ENGINEER.DISPOSAL PLANT OPERATOR Work Phone: Family [facility] [place] Start: 02-04-2025 End: 02-07-2025 Telephone encounter Darin Alonzo MD Work Phone: Internal Medicine [place] Comment on above: Patient Question (Le g cramps / asking if a higher dose should me called in?) Start: 02-01-2025 End: 02-05-2025 Refill Griselda Lema ROR ENGINEER.DISPOSAL PLANT OPERATOR Work Phone: Internal Medicine [place] Comment on above: Med Change Request Start: 01-29-2025 End: 01-29-2025 [facility] Facility:[facility] Start: 01-13-2025 End: 01-15-2025 Follow-up encounter Griselda Lema APRN.DISPOSAL PLANT OPERATOR Work Phone: Family Medicine [place] Comment on above: Results Start: 01-10-2025 End: 01-10-2025 Office outpatient visit 25 minutes Griselda Lema ROR ENGINEER.DISPOSAL PLANT OPERATOR Work Phone: Internal Medicine [place] Comment on above: Essential hypertensi on (Primary Dx); Controlled type 2 diabetes mellitus without complication, unspecified whether retirement insulin use (HCC); Muscle cramps; Insomnia, unspecified type; Anxiety and depression; Grief; Acquired hypothyroidism; Gastroesophageal reflux disease without esophagitis; Hyperlipidemia, unspecified hyperlipidemia type; Abnormal color of lips Start: 01-10-2025 End: 01-10-2025 [facility] Facility:[facility] Start: 01-08-2025 End: 03-10-2025 Follow-up encounter Griselda Lema APRN.CNP Work Phone: Family [facility] Start: 01-03-2025 End: 01-03-2025 ambulatory GRISELDA ELMA Facility:[facility] Start: 12-23-2024 End: 12-24-2024 ambulatory Dorie Gill APRN.DISPOSAL PLANT OPERATOR Work Phone: Pulmonary Medicine Comment on above: [place] Start: 12-13-2024 End: 12-13-2024 ambulatory Dorie Gill ROR ENGINEER.DISPOSAL PLANT OPERATOR Work Phone: Pulmonary Medicine Comment on above: pa[place] Start: 12-13-2024 End: 12-13-2024 Office outpatient visit 15 minutes Dorie Gill APRN.DISPOSAL PLANT OPERATOR Work Phone: Pulmonary Medicine Comment on above: Chronic cough (Prima ry Dx); Follicular bronchiolitis (HCC); Pulmonary air trapping; Post-nasal drip; Gastroesophageal reflux disease without esophagitis Start: 11-20-2024 End: 11-20-2024 Refill Darin Alonzo MD Work Phone: [facility] Comment on above: Refill Request Start: 11-18-2024 End: 11-19-2024 Telephone encounter Pamela Aranda MD Work Phone: Pulmonary Medicine Comment on above: Cough Start: 10-22-2024 End: 10-22-2024 ambulatory [facility] Facility:[facility] Start: 10-18-2024 End: 10-18-2024 ambulatory Dorie Gill APRN.DISPOSAL PLANT OPERATOR Work Phone: Pulmonary Medicine Comment on above: new inhaler Start: 10-18-2024 End: 10-18-2024 E-mail encounter from caregiver Dorie Gill APRN.DISPOSAL PLANT OPERATOR Work Phone: Pulmonary Medicine Start: 10-17-2024 End: 10-18-2024 Refill Pamela Aranda MD Work Phone: Pulmonary Medicine Comment on above: Refill Request Start: 10-17-2024 End: 10-18-2024 Telephone encounter Dorie Gill APRN.DISPOSAL PLANT OPERATOR Work Phone: Pulmonary Medicine Comment on above: Patient Update (Medi cation change) Start: 10-11-2024 End: 10-11-2024 ambulatory [facility] Facility:[facility] Start: 10-11-2024 End: 10-11-2024 Patient encounter procedure Griselda Lema APRN.CNP Work Phone: Internal Medicine [place] Comment on above: Controlled type 2 di abetes mellitus without complication, unspecified whether tree sapper insulin use (HCC) (Primary Dx); Essential hypertension; Grief; Acquired hypothyroidism Start: 09-19-2024 End: 09-19-2024 Telephone encounter Darin Alonzo MD Work Phone: Internal Medicine [place] Comment on above: Results Start: 09-19-2024 End: 09-19-2024 [facility] Facility:[facility] Start: 09-19-2024 End: 09-19-2024 Subsequent hospital visit by physician Screen Mammo [facility] Mammogram Comment on above: Encounter for screen ing mammogram for breast cancer [Z12.31] Start: 09-16-2024 End: 09-16-2024 [facility] Facility:[facility] Start: 08-16-2024 End: 08-22-2024 ambulatory Griselda Lema APRN.DISPOSAL PLANT OPERATOR Work Phone: Internal Medicine [place] Comment on above: [place] Start: 08-06-2024 End: 08-07-2024 Telephone encounter Darin Alonzo MD Work Phone: Internal Medicine [place] Comment on above: Orders (Mammogram) Start: 08-05-2024 End: 08-05-2024 Telephone encounter Griselda Lema APRN.DISPOSAL PLANT OPERATOR Work Phone: Internal Medicine [place] Comment on above: Results Start: 08-03-2024 End: 08-03-2024 ambulatory [facility] Facility:[facility] Start: 07-13-2024 End: 07-13-2024 ambulatory [facility] [place] Work Phone: Family Medicine [place] Start: 07-13-2024 End: 07-13-2024 Patient encounter procedure [facility] [place] Work Phone: Family [facility] [place] Start: 06-24-2024 End: 06-24-2024 Telephone encounter Darin Alonzo MD Work Phone: Internal [facility] [place] Comment on above: Patient Update Start: 2024 End: 2024 [facility] Facility:[facility] Start: 2024 End: 2024 Patient encounter procedure Griselda Lema ROR ENGINEER.DISPOSAL PLANT OPERATOR Work Phone: Internal Medicine [place] Comment on above: Controlled type 2 di abetes mellitus without complication, unspecified whether retirement insulin use (HCC) (Primary Dx); Essential hypertension; Hyperlipidemia, unspecified hyperlipidemia type; Acquired hypothyroidism; Medication management Start: 06-14-2024 End: 06-14-2024 ambulatory DORIE GILL Facility:[facility] Start: 06-14-2024 End: 06-14-2024 Office outpatient visit 25 minutes Dorie Gill APRN.DISPOSAL PLANT OPERATOR Work Phone: Pulmonary Medicine Comment on above: Chronic cough (Prima ry Dx); Follicular bronchiolitis (HCC); Pulmonary air trapping; PND (post-nasal drip); Cardiac murmur Start: 06-13-2024 End: 06-13-2024 [facility] Facility:[facility] Start: 05-16-2024 End: 05-16-2024 Refill Darin Alonzo MD Work Phone: Internal Medicine [place] Comment on above: Refill Request Start: 05-16-2024 End: 05-17-2024 Refill Griselda Lema APRN.DISPOSAL PLANT OPERATOR Work Phone: Internal Medicine [place] Comment on above: Med Change Request Start: 04-25-2024 End: 06-03-2024 Telephone encounter Darin Alonzo MD Work Phone: Family Medicine [place] Comment on above: Patient Update (Diab etic shoes) Start: 03-21-2024 End: 03-21-2024 Patient encounter procedure Griselda Lema ROR ENGINEER.DISPOSAL PLANT OPERATOR Work Phone: Internal Medicine [place] Comment on above: Controlled type 2 di abetes mellitus without complication, unspecified whether tree sapper insulin use (HCC) (Primary Dx); Hyperlipidemia, unspecified hyperlipidemia type; Essential hypertension; Gastroesophageal reflux disease without esophagitis; Grief; Acquired hypothyroidism; Follicular bronchiolitis (HCC) Start: 02-22-2024 End: 02-22-2024 Patient encounter procedure Darleen Orr ROR ENGINEER.DISPOSAL PLANT OPERATOR Work Phone: [place] [facility] Comment on above: Elbow wound, left, i nitial encounter (Primary Dx) Start: 02-22-2024 Telephone encounter Darleen Maguire ggneel ROR ENGINEER.DISPOSAL PLANT OPERATOR Work Phone: Internal Medicine [place] Comment on above: Medication Problem Start: 02-02-2024 Refill Griselda Older ROR ENGINEER .DISPOSAL PLANT OPERATOR Work Phone: Internal Medicine [place] Comment on above: Refill Request Start: 01-31-2024 Refill Griselda Older ROR ENGINEER .DISPOSAL PLANT OPERATOR Work Phone: Internal Medicine [place] Comment on above: Refill Request Start: 01-08-2024 Telephone encounter Griselda Older ROR ENGINEER.DISPOSAL PLANT OPERATOR Work Phone: Internal Medicine [place] Comment on above: Patient Update Start: 12-29-2023 ambulatory Griselda Older ROR ENGINEER .DISPOSAL PLANT OPERATOR Work Phone: Internal Medicine [place] Comment on above: [place] Start: 12-18-2023 ambulatory Griselda Older ROR ENGINEER .DISPOSAL PLANT OPERATOR Work Phone: Internal [facility] [place] Comment on above: [place] Start: 12-18-2023 Telephone encounter Griselda Older ROR ENGINEER.DISPOSAL PLANT OPERATOR Work Phone: Internal Medicine [place] Comment on above: Results Start: 12-15-2023 End: 12-15-2023 Patient encounter procedure Griselda Older ROR ENGINEER.DISPOSAL PLANT OPERATOR Work Phone: Internal Medicine [place] Comment on above: Controlled type 2 di abetes mellitus without complication, unspecified whether retirement insulin use (HCC) (Primary Dx); Essential hypertension; Acquired hypothyroidism; Dizziness Start: 12-05-2023 End: 12-05-2023 Subsequent hospital visit by physician [facility] ([facility]) Work Phone: Cat Scan Comment on above: Follicular bronchiol itis (HCC) [J42] Start: 12-04-2023 Refill Darin Montague Work Phone: Internal Medicine [place] Comment on above: Refill Request Start: 11-28-2023 End: 11-28-2023 Patient encounter procedure Pamela Aranda MD Work Phone: Pulmonary Medicine Comment on above: Follicular bronchiol itis (HCC) (Primary Dx); Chronic cough; Postnasal drip Start: 10-30-2023 Refill Griselda Older ROR ENGINEER .DISPOSAL PLANT OPERATOR Work Phone: Internal Medicine [place] Comment on above: Refill Request Start: 10-02-2023 ambulatory Griselda Older ROR ENGINEER .DISPOSAL PLANT OPERATOR Work Phone: Internal [facility] [place] Comment on above: [place] Start: 08-23-2023 ambulatory Griselda Older ROR ENGINEER .DISPOSAL PLANT OPERATOR Work Phone: Internal Medicine [place] Comment on above: [place] Start: 08-14-2023 Refill Griselda Older ROR ENGINEER .DISPOSAL PLANT OPERATOR Work Phone: Internal Medicine [place] Comment on above: Refill Request Start: 08-01-2023 Telephone encounter Darin gamez MD Work Phone: Family Medicine [place] Comment on above: Mammogram order Start: 07-15-2023 End: 07-15-2023 ambulatory [facility] [place] Work Phone: Family [facility] [place] Comment on above: Arrived Start: 07-07-2023 Telephone [...] 05-19-2023 End: 05-19-2023 Patient encounter procedure Griselda Older ROR ENGINEER.DISPOSAL PLANT OPERATOR Work Phone: Internal Medicine [place] Comment on above: Controlled type 2 di abetes mellitus without complication, unspecified whether tree sapper insulin use (HCC) (Primary Dx); Essential hypertension; Hyperlipidemia, unspecified hyperlipidemia type; Acquired hypothyroidism Start: 05-17-2023 End: 06-10-[address] Darin Alonzo Work Phone: [facility] Work Phone: Start: 05-17-2023 End: 06-10-[address] [facility]zo [facility] Work Phone: Start: 04-18-2023 Refill Darin Montague Work Phone: Internal Medicine [place] Comment on above: Refill Request Start: 04-11-2023 End: 05-11-[address] Darin Alonzo Work Phone: [facility] Work Phone: Start: 04-11-2023 End: 05-11-[address] Dar[facility] Alonzo [facility] Work Phone: Start: 04-10-2023 End: 04-10-2023 Subsequent hospital visit by physician Xr [facility] Work Phone: Radiology Comment on above: Tenderness of right hip [M25.551] Start: 04-10-2023 End: 04-10-2023 Patient encounter procedure Griselda Lema APRN.CNP Work Phone: Internal Medicine [place] Comment on above: Essential hypertensi on (Primary Dx); Tenderness of right hip; Right thigh pain; Right ankle instability Start: 03-21-2023 End: 03-21-[address] Darin Alonzo Work Phone: [facility] Work Phone: Start: 03-07-2023 Non-patient / Non-visit Dr. Derrek Alonzo Work Phone: [facility] Start: 03-07-2023 End: 03-07-[address] Darin Alonzo Work Phone: [facility] Work Phone: Start: 03-07-2023 End: 03-07-[address] Darin Alonzo Work Phone: [facility] Work Phone: Start: 03-01-2023 End: 03-01-2023 Patient encounter procedure Darin Alonzo MD Work Phone: Internal Medicine [place] Comment on above: Essential hypertensi on (Primary Dx); Uncontrolled hypertension Start: 02-27-2023 Refill Griselda Older ROR ENGINEER .DISPOSAL PLANT OPERATOR Work Phone: Internal Medicine [place] Comment on above: Refill Request Start: 02-27-2023 Telephone encounter Darin gamez MD Work Phone: Internal Medicine [place] Comment on above: Blood Pressure Start: 02-25-2023 Refill Griselda Older ROR ENGINEER .DISPOSAL PLANT OPERATOR Work Phone: Internal Medicine [place] Comment on above: Refill Request Start: 02-23-2023 Refill Griselda Older ROR ENGINEER .DISPOSAL PLANT OPERATOR Work Phone: Internal Medicine [place] Comment on above: Refill Request Start: 02-16-2023 Refill Griselda Older ROR ENGINEER .DISPOSAL PLANT OPERATOR Work Phone: Internal Medicine [place] Comment on above: Refill Request Start: 12-13-2022 Refill Darin Montague Work Phone: Internal Medicine [place] Comment on above: Refill Request Start: 11-25-2022 End: 11-25-2022 ambulatory [facility] Comment on above: Spi[facility] Start: 11-25-2022 End: 11-25-2022 Patient encounter procedure [facility] Phone[facility] Comment on above: Follicular bronchiol itis (HCC) (Primary Dx); Post-nasal drip; Gastroesophageal reflux disease, unspecified whether esophagitis present Start: 11-09-2022 Refill Darin Montague Work Phone: Internal Medicine [place] Comment on above: Refill Request Start: 11-07-2022 Refill Griselda ManriquezDISPOSAL PLANT OPERATOR Work Phone: Internal Medicine [place] Comment on above: Refill Request Start: 11-07-2022 End: 11-07-2022 Subsequent hospital visit by physician Xr [facility] [place] Work Phone: Radiology Comment on above: Follicular bronchiol itis (HCC) [J42] Start: 11-01-2022 End: 11-01-2022 Patient encounter procedure Darin Alonzo MD Work Phone: Internal Medicine [place] Comment on above: Essential hypertensi on (Primary Dx); Hyperlipidemia, unspecified hyperlipidemia type; Acquired hypothyroidism; Controlled type 2 diabetes mellitus without complication, unspecified whether retirement insulin use (HCC); Follicular bronchiolitis (HCC) Start: 09-19-2022 Telephone encounter Darin gamez MD Work Phone: Internal Medicine [place] Comment on above: Results Start: 08-23-2022 Documentation procedure Mammog shavonne Coordinator [facility] Start: 08-23-2022 Letter encounter Mammography Coordinator [facility] Department Start: 08-22-2022 End: 08-22-2022 Subsequent hospital visit by physician Screen Mammo [facility] Mammogram Comment on above: Encounter for screen ing mammogram for malignant neoplasm of breast [Z12.31] Start: 08-19-2022 Refill Griselda Lema APRN .DISPOSAL PLANT OPERATOR Work Phone: Internal Medicine [place] Comment on above: Refill Request Start: 08-01-2022 End: 08-01-2022 Patient encounter procedure Darin Alonzo MD Work Phone: Internal [facility] [place] Comment on above: Controlled type 2 di abetes mellitus without complication, unspecified whether retirement insulin use (HCC) (Primary Dx); Acquired hypothyroidism; Essential hypertension; Hyperlipidemia, unspecified hyperlipidemia type Start: 07-28-2022 Telephone encounter Darin gamez MD Work Phone: Internal Medicine [place] Comment on above: Orders Start: 07-19-2022 Refill Darin Montague Work Phone: Internal Medicine [place] Comment on above: Refill Request Start: 07-15-2022 [...] 06-15-2022 Subsequent hospital visit by physician Xr [facility] [place] Work Phone: Radiology Comment on above: Acute cough [R05.1] Start: 06-15-2022 End: 06-15-2022 Patient encounter procedure Griselda Lema APRN.DISPOSAL PLANT OPERATOR Work Phone: Internal Medicine [place] Comment on above: Acute cough (Primary Dx); Post-nasal drip Start: 06-02-2022 End: 06-02-2022 Patient encounter procedure Arsh Davalos APRN.DISPOSAL PLANT OPERATOR Work Phone: [place] [facility] Comment on above: Suspected COVID-19 v irus infection (Primary Dx); Sinobronchitis Start: 05-09-2022 End: 05-09-2022 Patient encounter procedure Pamela Aranda MD Work Phone: Pulmonary Medicine Comment on above: Follicular bronchiol itis (HCC) (Primary Dx); Post-nasal drip; Gastroesophageal reflux disease without esophagitis Start: 04-22-2022 Refill Darin Montague Work Phone: Internal Medicine [place] Comment on above: Refill Request Start: 04-21-2022 Telephone encounter Griselda Lema APRN.DISPOSAL PLANT OPERATOR Work Phone: Internal Medicine [place] Comment on above: Medication Problem Start: 04-19-2022 End: 04-19-2022 Patient encounter procedure Darin Alonzo MD Work Phone: Internal Medicine [place] Comment on above: Chronic cough (Prima ry Dx); Controlled type 2 diabetes mellitus without complication, unspecified whether retirement insulin use (HCC); Essential hypertension; Hyperlipidemia, unspecified hyperlipidemia type Start: 04-14-2022 ambulatory Darin Montague Work Phone: Internal [facility] [place] Comment on above: Cough Start: 04-09-2022 Refill Griselda ManriquezDISPOSAL PLANT OPERATOR Work Phone: Internal Medicine [place] Comment on above: Refill Request Start: 03-23-2022 Telephone encounter Darin gamez MD Work Phone: Internal Medicine [place] Comment on above: Results Start: 03-21-2022 End: 03-21-2022 Subsequent hospital visit by physician Xr [facility] [place] Work Phone: Radiology Comment on above: Acute [...] [place] Comment on above: Refill Request Start: 03-11-2022 Non-patient / Non-visit Dr. Derrek Alonzo Work Phone: [facility] Start: 03-11-2022 Non-patient / Non-visit Dr. Derrek Alonzo Work Phone: [facility] Start: 03-11-2022 Non-patient / Non-visit Dr. Derrek Alonzo Work Phone: [facility] Start: 03-10-2022 Non-patient / Non-visit Dr. Derrek Alonzo Work Phone: [facility] Start: 03-10-2022 End: 03-11-2022 Evaluation and management of inpatient Dr. Darin Alonzo Work Phone: [facility]Progressive Care Unit Start: 03-10-2022 End: 03-10-2022 Emergency department patient visit [facility]Emer[facility] Start: 03-10-2022 End: 03-10-2022 Patient encounter procedure Nakul Patino MD Work Phone: [place] [facility] Comment on above: Dizziness (Primary D x); Headache, unspecified headache type; Nausea Start: 12-10-2021 Refill Darin Montague Work Phone: Internal Medicine [place] Comment on above: Refill Request Start: 10-27-2017 End: 10-27-2017 Ambulatory [facility] Procedures Date Procedure Procedure Detail Performing Clinician Start: 04-12-2025 CT angiography of he ad and neck Dr. Darin Alonzo MD Work Phone: Start: 04-12-[address] Darin Alonzo MD Work Phone: Start: 10-11-2024 Hemoglobin A1c/Hemoglobin.total in Blood Griselda Lema APRN.DISPOSAL PLANT OPERATOR Work Phone: Start: 09-19-2024 Screening mammograph y bi 2-view breast inc cad Darin Alonzo MD Work Phone: Start: 03-21-2024 Hemoglobin A1c/Hemoglobin.total in Blood Griselda Older ROR ENGINEER.DISPOSAL PLANT OPERATOR Work Phone: Start: 07-15-2023 INFLUENZA VACCINE, P RSV FREE, AGE 65+ YR, HIGH DOSE, QUADRIVALENT (FLUZONE HIGH-DOSE) Hamzah Leggett MD Work Phone: Start: 04-10-2023 Radex ankle complete minimum 3 views Griselda Older ROR ENGINEER.DISPOSAL PLANT OPERATOR Work Phone: Start: 11-25-2022 Brncdilat rspse spmt ry pre&post-brncdilat admn Pamela Aranda MD Work Phone: Start: 11-07-2022 Radiologic exam ches t 2 views Pamela Aranda MD Work Phone: Start: 08-22-2022 Screening mammograph y bi 2-view breast inc cad Griselda Older ROR ENGINEER.DISPOSAL PLANT OPERATOR Work Phone: Start: 07-02-2022 INFLUENZA SEASONAL QUADRIVALENT HIGH DOSE AGE 65+ Hamzah Leggett MD Work Phone: Start: 06-15-2022 Radiologic exam ches t 2 views Griselda Older ROR ENGINEER.DISPOSAL PLANT OPERATOR Work Phone: Start: 03-21-2022 Radiologic exam ches [...] Vaccine ( season) Covid-19 Vaccine ( season) [facility] Comment on above: Postponed from 07/04 (Declined at this time) Start: 07-16-2025 Glaucoma screening Dilated Retinal E xam [facility] Start: 07-05-2025 Hemoglobin A1c measurement HbA1C [facility] Start: 06-24-2025 End: 06-24-2025 Patient encounter procedure 06/24/2025 9:30 AM EDT Office Visit Pulmonary Medicine [address] [place] [address] Pamela Aranda MD [address] [place] [address] 6 month follow up Pulmonary Medicine Comment on above: 6 month follow up Start: 06-13-2025 Hepatitis B screening Urine Al bumin:Creatinine Ratio [facility] Start: 06-13-2025 Hepatitis B surface antibody level LDL Cholesterol [facility] Start: 06-07-2025 End: 09-06-2025 CBC panel - Blood by Automated count COMPLETE BLOOD COUNT Lab Routine Essential hypertension Controlled type 2 diabetes mellitus without complication, unspecified whether retirement insulin use (HCC) Expected: 06/07/2025 (Approximate), Expires: 09/06/2025 [facility] Comment on above: Expected: 06/07/2025 (Approximate), Expires: 09/06/2025 Start: 06-07-2025 End: 09-06-2025 Comprehensive metabolic 2000 panel - Serum or Plasma COMPREHENSIVE METABOLIC PANEL Lab Routine Hyperlipidemia, unspecified hyperlipidemia type Essential hypertension Controlled type 2 diabetes mellitus without complication, unspecified whether tree sapper insulin use (HCC) Expected: 06/07/2025, Expires: 09/06/2025 [facility] Comment on above: Expected: 06/07/2025 , Expires: 09/06/2025 Start: 06-07-2025 End: 09-06-2025 Hemoglobin A1c in Blood HEMOGLOBIN A1C Lab Routine Controlled type 2 diabetes mellitus without complication, unspecified whether retirement insulin use (HCC) Expected: 06/07/2025 (Approximate), Expires: 09/06/2025 [facility] Comment on above: Expected: 06/07/2025 (Approximate), Expires: 09/06/2025 Start: 06-07-2025 End: 09-06-2025 Lipid 1996 panel - Serum or Plasma LIPID PANEL, FASTING Lab Routine Hyperlipidemia, unspecified hyperlipidemia type Expected: 06/07/2025, Expires: 09/06/2025 [facility] Comment on above: Expected: 06/07/2025 , Expires: 09/06/2025 Start: 06-07-2025 End: 09-06-2025 Magnesium [Mass/volume] in Serum or Plasma MAGNESIUM Lab Routine Hypomagnesemia Expected: 06/07/2025 (Approximate), Expires: 09/06/2025 [facility] Work Phone: Comment on above: Expected: 06/07/2025 (Approximate), Expires: 09/06/2025 Start: 06-07-2025 End: 09-06-2025 Thyrotropin [Units/volume] in Serum or Plasma THYROID STIMULATING HORMONE Lab Routine Acquired hypothyroidism Expected: 06/07/2025, Expires: 09/06/2025 [facility] Comment on above: Expected: 06/07/2025 , Expires: 09/06/2025 Start: 06-06-2025 End: 06-06-2025 Patient encounter procedure 06/06/2025 8:00 AM EDT Office Visit [facility] [place] [address] [place] [address] Darin Alonzo MD [address] [place] [address] Medicare Wellness [facility] [place] Comment on above: Medicare Wellness Start: 05-12-2025 Influenza vaccination Influenza Vacc ine (#1) [facility] Start: 04-13-2025 Thyroid stimulating hormone measurement [facility] Start: 04-13-2025 Urinalysis complete panel - Urine [facility] Start: 04-13-2025 Verification routine [facility] Start: 04-13-2025 Admission procedure [facility] Start: 04-13-2025 Hospital admission, emergency, from emergency room, medical nature [facility] Start: 04-10-2025 Hemoglobin A1c measurement HbA1C [facility] Start: 03-21-2025 Diabetic foot examination Diabetic F oot Exam [facility] Start: 03-10-2025 Influenza vaccination Influenza Vacc ine (#1) [facility] Comment on above: Postponed from 05/12 (Declined at this time) Start: 03-07-2025 End: 03-07-2025 Patient encounter procedure 03/07/2025 7:00 AM EDT Office Visit [facility] [place] [address] [place] [address] Griselda Lema APRN.DISPOSAL PLANT OPERATOR [address] [place] [address] 4 week follow up [facility] [place] Comment on above: 4 week follow up Start: 02-21-2025 End: 05-23-2025 Magnesium [Mass/volume] in Serum or Plasma MAGNESIUM Lab Routine Hypomagnesemia Expected: 02/21/2025, Expires: 05/23/2025 [facility] Work Phone: Comment on above: Expected: 02/21/2025 , Expires: 05/23/2025 Start: 02-07-2025 End: 02-07-2025 Patient encounter procedure 02/07/2025 7:00 AM EDT Office Visit [facility] [place] [address] [place] [address] Griselda Lema APRN.DISPOSAL PLANT OPERATOR [address] [place] [address] 4 week follow up [facility] [place] Comment on above: 4 week follow up Start: 01-20-2025 End: 04-21-2025 Magnesium [Mass/volume] in Serum or Plasma MAGNESIUM Lab Routine Hypomagnesemia Expected: 01/20/2025 (Approximate), Expires: 04/21/2025 [facility] Work Phone: Comment on above: Expected: 01/20/2025 (Approximate), Expires: 04/21/2025 Start: 01-10-2025 End: 04-11-2025 Magnesium [Mass/volume] in Serum or Plasma [facility] Work Phone: Comment on above: Expected: 01/10/2025 , Expires: 04/11/2025 Start: 01-10-2025 End: 01-10-2025 Patient encounter procedure 01/10/2025 7:20 AM EDT Office Visit [facility] [place] [address] [place] [address] Griselda Lema APRN.DISPOSAL PLANT OPERATOR [address] [place] [address] 3 month follow up [facility] [place] Comment on above: 3 month follow up Start: 01-08-2025 End: 04-09-2025 Basic metabolic 2000 panel - Serum or Plasma BASIC METABOLIC PANEL Lab Routine Controlled type 2 diabetes mellitus without complication, unspecified whether retirement insulin use (HCC) Essential hypertension Expected: 01/08/2025 (Approximate), Expires: 04/09/2025 [facility] Work Phone: Comment on above: Expected: 01/08/2025 (Approximate), Expires: 04/09/2025 Start: 01-08-2025 End: 04-09-2025 CBC panel - Blood by Automated count COMPLETE BLOOD COUNT Lab Routine Controlled type 2 diabetes mellitus without complication, unspecified whether tree sapper insulin use (HCC) Essential hypertension Expected: 01/08/2025 (Approximate), Expires: 04/09/2025 [facility] Comment on above: Expected: 01/08/2025 (Approximate), Expires: 04/09/2025 Start: 01-08-2025 End: 04-09-2025 Hemoglobin A1c in Blood HEMOGLOBIN A1C Lab Routine Controlled type 2 diabetes mellitus without complication, unspecified whether retirement insulin use (HCC) Expected: 01/08/2025 (Approximate), Expires: 04/09/2025 [facility] Comment on above: Expected: 01/08/2025 (Approximate), Expires: 04/09/2025 Start: 01-08-2025 End: 04-09-2025 Thyrotropin [Units/volume] in Serum or Plasma THYROID STIMULATING HORMONE Lab Routine Acquired hypothyroidism Expected: 01/08/2025 (Approximate), Expires: 04/09/2025 [facility] Comment on above: Expected: 01/08/2025 (Approximate), Expires: 04/09/2025 Start: 12-13-2024 End: 12-13-2024 Patient encounter procedure 12/13/2024 8:00 AM EDT Office Visit Pulmonary Medicine [address] [place] [address] Dorie Gill APRN.DISPOSAL PLANT OPERATOR [address] [place] [address] 6 month f/u Pulmonary Medicine Comment on above: 6 month f/u Start: 12-12-2024 Hemoglobin A1c measurement HbA1C [facility] Start: 10-11-2024 End: 10-11-2024 Patient encounter procedure 10/11/2024 8:00 AM EST Office Visit Internal Medicine [place] [address] [place], [place] [id number] Griselda Lema APRN.DISPOSAL PLANT OPERATOR [address] [place], [place] [id number] 3 month follow up [facility] Medicine [place] Comment on above: 3 month follow up Start: 09-21-2024 Hemoglobin A1c measurement HbA1C [facility] Start: 09-20-2024 End: 09-20-2024 Patient encounter procedure 09/20/2024 7:20 AM EST Office Visit Internal Medicine [place] [address] [place] [address] Griselda Lema APRN.DISPOSAL PLANT OPERATOR [address] [place], [place] [address] 3 month follow up [facility] Medicine [place] Comment on above: 3 month follow up Start: 09-19-2024 End: 09-19-2024 Patient encounter procedure 09/19/2024 10:50 AM EST Appointment Mammogram [address] [place], [place] [id number] Encounter for screening mammogram for breast cancer [Z12.31] Mammogram Comment on above: Encounter for screen ing mammogram for breast cancer [Z12.31] Start: 09-11-2024 Advance Directive Discussion Advance Directive Discussion [facility] Start: 09-04-2024 End: 12-04-2024 Thyrotropin [Units/volume] in Serum or Plasma THYROID STIMULATING HORMONE Lab Routine Acquired hypothyroidism Medication management Expected: 09/04/2024 (Approximate), Expires: 12/04/2024 [facility] Work Phone: Comment on above: Expected: 09/04/2024 (Approximate), Expires: 12/04/2024 Start: 09-04-2024 End: 12-04-2024 Thyroxine (T4) free [Mass/volume] in Serum or Plasma T4 FREE/FREE THYROXINE Lab Routine Acquired hypothyroidism Medication management Expected: 09/04/2024 (Approximate), Expires: 12/04/2024 [facility] Comment on above: Expected: 09/04/2024 (Approximate), Expires: 12/04/2024 Start: 08-17-2024 RSV Vaccine (1 - 1-d ose 60+ series) RSV Vaccine (1 - 1-dose 60+ series) [facility] Comment on above: Postponed from 06/21 (Declined at this time) Start: 08-17-2024 RSV Vaccine (1 - 1-d ose 75+ series) RSV Vaccine (1 - 1-dose 75+ series) [facility] Comment on above: Postponed from 06/21 (Declined at this time) Start: 08-05-2024 Hepatitis B surface antibody level LDL Cholesterol [facility] Start: 07-22-2024 End: 10-21-2024 Thyrotropin [Units/volume] in Serum or Plasma THYROID STIMULATING HORMONE Lab Routine Acquired hypothyroidism Medication management Expected: 07/22/2024 (Approximate), Expires: 10/21/2024 [facility] Work Phone: Comment on above: Expected: 07/22/2024 (Approximate), Expires: 10/21/2024 Start: 07-14-2024 Glaucoma screening Dilated Retinal E xam [facility] Start: 07-14-2024 Hepatitis C antibody , confirmatory test Dilated Retinal Exam [facility] Start: 07-13-2024 End: 07-13-2024 Patient encounter procedure 07/13/2024 8:00 AM EDT Immunization [facility] [place] [address] [place] [address] [place], Immunization Clinic Nurse [address] [place] [address] 65+ Flu Vaccine [facility] [place] Comment on above: 65+ Flu Vaccine Start: 07-04-2024 Covid-19 Vaccine ( season) Covid-19 Vaccine ( season) [facility] Start: 2024 End: 2024 Patient encounter procedure 2024 7:20 AM EDT Office Visit Internal Medicine [place] [address] [place] [address] Griselda Lema APRN.DISPOSAL PLANT OPERATOR [address] [place] [address] 3 month follow up [facility] [place] Comment on above: 3 month follow up Start: 06-17-2024 End: 09-16-2024 CBC panel - Blood by Automated count COMPLETE BLOOD COUNT Lab Routine Controlled type 2 diabetes mellitus without complication, unspecified whether tree sapper insulin use (HCC) Essential hypertension Expected: 06/17/2024 (Approximate), Expires: 09/16/2024 [facility] Comment on above: Expected: 06/17/2024 (Approximate), Expires: 09/16/2024 Start: 06-17-2024 End: 09-16-2024 Comprehensive metabolic 2000 panel - Serum or Plasma COMPREHENSIVE METABOLIC PANEL Lab Routine Controlled type 2 diabetes mellitus without complication, unspecified whether tree sapper insulin use (HCC) Essential hypertension Hyperlipidemia, unspecified hyperlipidemia type Expected: 06/17/2024 (Approximate), Expires: 09/16/2024 [facility] Comment on above: Expected: 06/17/2024 (Approximate), Expires: 09/16/2024 Start: 06-17-2024 End: 09-16-2024 Hemoglobin A1c in Blood HEMOGLOBIN A1C Lab Routine Controlled type 2 diabetes mellitus without complication, unspecified whether tree sapper insulin use (HCC) Expected: 06/17/2024 (Approximate), Expires: 09/16/2024 [facility] Comment on above: Expected: 06/17/2024 (Approximate), Expires: 09/16/2024 Start: 06-17-2024 End: 09-16-2024 Lipid 1996 panel - Serum or Plasma LIPID PANEL BASIC Lab Routine Hyperlipidemia, unspecified hyperlipidemia type Expected: 06/17/2024 (Approximate), Expires: 09/16/2024 [facility] Comment on above: Expected: 06/17/2024 (Approximate), Expires: 09/16/2024 Start: 06-17-2024 End: 09-16-2024 Microalbumin/Creatinine [Mass Ratio] in Urine ALBUMIN/CREATININE RATIO, URINE Lab Routine Controlled type 2 diabetes mellitus without complication, unspecified whether tree sapper insulin use (HCC) Expected: 06/17/2024 (Approximate), Expires: 09/16/2024 [facility] Work Phone: Comment on above: Expected: 06/17/2024 (Approximate), Expires: 09/16/2024 Start: 06-17-2024 End: 09-16-2024 Thyrotropin [Units/volume] in Serum or Plasma THYROID STIMULATING HORMONE Lab Routine Acquired hypothyroidism Expected: 06/17/2024 (Approximate), Expires: 09/16/2024 [facility] Comment on above: Expected: 06/17/2024 (Approximate), Expires: 09/16/2024 Start: 06-14-2024 End: 06-14-2024 Patient encounter procedure Pulmonary Medicine Comment on above: 6 month follow up Start: 05-19-2024 ANNUAL PCP TEAM WATERPROOF BAG SEWER ROMY DISEASE VISIT ANNUAL PCP TEAM CHRONIC DISEASE VISIT [facility] Start: 05-19-2024 BP CONTROLLED (<130/80) BP CONTROLLE D (<130/80) [facility] Start: 05-19-2024 Covid-19 Vaccine ( season) Covid-19 Vaccine ( season) [facility] Comment on above: Postponed from 05/12 (Declined at this time) Start: 05-19-2024 COVID-19 VACCINE (6 - Moderna series) COVID-19 VACCINE (6 - Moderna series) [facility] Comment on above: Postponed from 11/04 (Declined at this time) Start: 05-19-2024 Urine microalbumin profile [facility] Comment on above: Postponed from 03/23 (Declined at this time) Start: 05-12-2024 Influenza vaccination Influenza Vacc ine (#1) [facility] Start: 04-10-2024 ANNUAL PCP TEAM WATERPROOF BAG SEWER ROMY DISEASE VISIT ANNUAL PCP TEAM CHRONIC DISEASE VISIT [facility] Start: 03-21-2024 End: 03-21-2024 Patient encounter procedure 03/21/2024 7:20 AM EDT Office Visit Internal Medicine [place] [address] [place] [address] Griselda Lema APRN.DISPOSAL PLANT OPERATOR [address] [place] [address] 3month FU DM [facility] Medicine [place] Comment on above: 3month FU DM Start: 03-15-2024 End: 03-15-2024 Patient encounter procedure 03/15/2024 7:20 AM EDT Office Visit Internal Medicine [place] [address] [place] [address] Griselda Lema, ROR ENGINEER.DISPOSAL PLANT OPERATOR [address] [place] [address] 3 month DM follow up [facility] Medicine [place] Comment on above: 3 month DM follow up Start: 03-11-2024 Hemoglobin A1c measurement HbA1C [facility] Start: 03-10-2024 Influenza vaccination [facility] Comment on above: Postponed from 05/12 (Declined at this time) Start: 03-01-2024 ANNUAL PCP TEAM WATERPROOF BAG SEWER ROMY DISEASE VISIT ANNUAL PCP TEAM CHRONIC DISEASE VISIT [facility] Start: 02-23-2024 Urine microalbumin profile DTaP,Tdap,Td Vaccine (1 - Tdap) [facility] Start: 02-22-2024 End: 05-23-2024 Bacteria identified in Wound by Culture [facility] Work Phone: Comment on above: Expected: 02/22/2024 , Expires: 05/23/2024 Start: 02-03-2024 Hemoglobin A1c measurement HbA1C [facility] Start: 02-03-2024 Hemoglobin A1c/Hemoglobin.total in Blood HbA1C [facility] Start: 01-31-2024 ANNUAL PCP TEAM WATERPROOF BAG SEWER ROMY DISEASE VISIT ANNUAL PCP TEAM CHRONIC DISEASE VISIT [facility] Start: 01-24-2024 Hepatitis B surface antibody level LDL CHOLESTEROL [facility] Start: 01-17-2024 End: 04-17-2024 Thyrotropin [Units/volume] in Serum or Plasma TSH BLD Lab Routine Medication management Acquired hypothyroidism Expected: 01/17/2024 (Approximate), Expires: 04/17/2024 [facility] Work Phone: Comment on above: Expected: 01/17/2024 (Approximate), Expires: 04/17/2024 Start: 01-17-2024 End: 04-17-2024 Thyroxine (T4) free [Mass/volume] in Serum or Plasma T4 FREE/FREE THYROX Lab Routine Medication management Acquired hypothyroidism Expected: 01/17/2024 (Approximate), Expires: 04/17/2024 [facility] Work Phone: Comment on above: Expected: 01/17/2024 (Approximate), Expires: 04/17/2024 Start: 12-15-2023 End: 03-15-2024 CBC W Auto Differential panel - Blood [facility] Work Phone: Comment on above: Expected: 12/15/2023 , Expires: 03/15/2024 Start: 12-15-2023 End: 03-15-2024 Thyrotropin [Units/volume] in Serum or Plasma [facility] Work Phone: Comment on above: Expected: 12/15/2023 , Expires: 03/15/2024 Start: 11-09-2023 Hemoglobin A1c/Hemoglobin.total in Blood HBA1C [facility] Start: 11-02-2023 Hepatitis B screening URINE AL BUMIN:CREATININE RATIO [facility] Start: 11-01-2023 3 comp foot exam completed DIABETIC FOOT EXAM [facility] Start: 11-01-2023 ANNUAL PCP TEAM WATERPROOF BAG SEWER ROMY DISEASE VISIT ANNUAL PCP TEAM CHRONIC DISEASE VISIT [facility] Start: 11-01-2023 Diabetic foot examination Diabetic F oot Exam [facility] Start: 10-24-2023 Hepatitis B surface antibody level LDL CHOLESTEROL [facility] Start: 09-27-2023 Hepatitis C antibody , confirmatory test DILATED RETINAL EXAM [facility] Start: 09-11-2023 Behavioral Health Screening Behavioral Health Screening [facility] Start: 08-14-2023 End: 10-14-2023 CBC panel - Blood by Automated count CBC Lab Routine Essential hypertension Controlled type 2 diabetes mellitus without complication, unspecified whether tree sapper insulin use (HCC) Expected: 08/14/2023 (Approximate), Expires: 10/14/2023 [facility] Work Phone: Comment on above: Expected: 08/14/2023 (Approximate), Expires: 10/14/2023 Start: 08-14-2023 End: 10-14-2023 Comprehensive metabolic 2000 panel - Serum or Plasma COMP METABOLIC PANEL Lab Routine Essential hypertension Hyperlipidemia, unspecified hyperlipidemia type Controlled type 2 diabetes mellitus without complication, unspecified whether tree sapper insulin use (HCC) Expected: 08/14/2023 (Approximate), Expires: 10/14/2023 [facility] Work Phone: Comment on above: Expected: 08/14/2023 (Approximate), Expires: 10/14/2023 Start: 08-14-2023 End: 10-14-2023 Hemoglobin A1c in Blood HGB A1C Lab Routine Controlled type 2 diabetes mellitus without complication, unspecified whether retirement insulin use (HCC) Expected: 08/14/2023 (Approximate), Expires: 10/14/2023 [facility] Work Phone: Comment on above: Expected: 08/14/2023 (Approximate), Expires: 10/14/2023 Start: 08-14-2023 End: 10-14-2023 Lipid 1996 panel - Serum or Plasma LIPID PANEL BASIC Lab Routine Hyperlipidemia, unspecified hyperlipidemia type Expected: 08/14/2023 (Approximate), Expires: 10/14/2023 [facility] Work Phone: Comment on above: Expected: 08/14/2023 (Approximate), Expires: 10/14/2023 Start: 08-14-2023 End: 10-14-2023 Thyrotropin [Units/volume] in Serum or Plasma TSH BLD Lab Routine Acquired hypothyroidism Expected: 08/14/2023 (Approximate), Expires: 10/14/2023 [facility] Work Phone: Comment on above: Expected: 08/14/2023 (Approximate), Expires: 10/14/2023 Start: 08-01-2023 ANNUAL PCP TEAM WATERPROOF BAG SEWER ROMY DISEASE VISIT ANNUAL PCP TEAM CHRONIC DISEASE VISIT [facility] Start: 07-26-2023 Hemoglobin A1c/Hemoglobin.total in Blood HBA1C [facility] Start: 07-25-2023 Hepatitis B surface antibody level LDL CHOLESTEROL [facility] Start: 06-15-2023 ANNUAL PCP TEAM WATERPROOF BAG SEWER ROMY DISEASE VISIT ANNUAL PCP TEAM CHRONIC DISEASE VISIT [facility] Start: 05-12-2023 Influenza vaccination INFLUENZA (#1) [facility] Start: 04-23-2023 Hemoglobin A1c/Hemoglobin.total in Blood HBA1C [facility] Start: 04-19-2023 ANNUAL PCP TEAM WATERPROOF BAG SEWER ROMY DISEASE VISIT ANNUAL PCP TEAM CHRONIC DISEASE VISIT [facility] Start: 04-15-2023 Hepatitis B surface antibody level LDL CHOLESTEROL [facility] Start: 03-21-2023 ANNUAL PCP TEAM WATERPROOF BAG SEWER ROMY DISEASE VISIT ANNUAL PCP TEAM CHRONIC DISEASE VISIT [facility] Start: 03-21-2023 BP CONTROLLED (<130/80) BP CONTROLLE D (<130/80) [facility] Start: 01-22-2023 Hemoglobin A1c/Hemoglobin.total in Blood HBA1C [facility] Start: 12-20-2022 Hepatitis B surface antibody level LDL CHOLESTEROL [facility] Start: 11-04-2022 COVID-19 VACCINE (6 - Moderna series) COVID-19 VACCINE (6 - Moderna series) [facility] Start: 11-01-2022 End: 01-01-2023 ALBUMIN/CREAT RATIO RND UR ALBUMIN/CREAT RATIO RND UR Lab Routine Controlled type 2 diabetes mellitus without complication, unspecified whether tree sapper insulin use (HCC) Expected: 11/01/2022, Expires: 01/01/2023 [facility] Work Phone: Comment on above: Expected: 11/01/2022 , Expires: 01/01/2023 Start: 10-26-2022 ADVANCE DIRECTIVE DISCUSSION ADVANCE DIRECTIVE DISCUSSION [facility] Comment on above: Postponed from 09/11 (Currently Scheduled) Start: 10-22-2022 3 comp foot exam completed DIABETIC FOOT EXAM [facility] Start: 10-22-2022 Adult depression screening assessment DEPRESSION SCREENING [facility] Start: 10-22-2022 ANNUAL PCP TEAM JOSE ROMY DISEASE VISIT ANNUAL PCP TEAM CHRONIC DISEASE VISIT [facility] Start: 10-22-2022 BP CONTROLLED (<130/80) BP CONTROLLE D (<130/80) [facility] Start: 10-18-2022 Hepatitis B screening URINE AL BUMIN:CREATININE RATIO [facility] Start: 10-16-2022 Hemoglobin A1c/Hemoglobin.total in Blood HBA1C [facility] Start: 09-11-2022 ADVANCE DIRECTIVE DISCUSSION ADVANCE DIRECTIVE DISCUSSION [facility] Start: 09-11-2022 DEPRESSION ASSESSMENT DEPRESSION ASS ESSMENT [facility] Start: 08-31-2022 End: 10-31-2022 Thyrotropin [Units/volume] in Serum or Plasma TSH BLD Lab Routine Acquired hypothyroidism Expected: 08/31/2022, Expires: 10/31/2022 [facility] Work Phone: Comment on above: Expected: 08/31/2022 , Expires: 10/31/2022 Start: 07-15-2022 End: 09-14-2022 ALGN BLAIR GRP [facility] Work Phone: Comment on above: Expected: 07/15/2022 , Expires: 09/14/2022 Start: 07-15-2022 End: 09-14-2022 IgE [Units/volume] in Serum or Plasma [facility] Work Phone: Comment on above: Expected: 07/15/2022 , Expires: 09/14/2022 Start: 05-12-2022 Influenza vaccination INFLUENZA (#1) [facility] Start: 04-17-2022 Hemoglobin A1c/Hemoglobin.total in Blood HBA1C [facility] Start: 04-08-2022 Urine microalbumin profile DTAP,TDAP,TD (1 - Tdap) [facility] Comment on above: Postponed from 03/23 (Declined at this time) Start: 04-01-2022 Hepatitis B surface antibody level LDL CHOLESTEROL [facility] Start: 03-11-2022 [facility] Start: 03-10-2022 Application of intermittent pneumatic compression device [facility] Work Phone: Start: 03-10-2022 Following clinical pathway protocol [facility] Work Phone: Start: 03-10-2022 Assessment of risk o f venous thromboembolism [facility] Work Phone: Start: 03-10-2022 Cardiac monitoring [facility] Work Phone: Start: 03-10-2022 Care regimes management [facility] Work Phone: Start: 03-10-2022 Catheterization of vein [facility] Work Phone: Start: 03-10-2022 Continuous pulse oximetry [facility] Work Phone: Start: 03-10-2022 Elevation of head of bed [facility] Work Phone: Start: 03-10-2022 Exercises [facility] Work Phone: Start: 03-10-[address] anned interventions [facility] Work Phone: Start: 03-10-2022 Incentive spirometry [facility] Work Phone: Start: 03-10-2022 Insertion of cathete r into peripheral vein [facility] Work Phone: Start: 03-10-2022 Measuring intake and output [facility] Work Phone: Start: 03-10-2022 Notification of physician [facility] Work Phone: Start: 03-10-2022 Oxygen therapy [facility] Work Phone: Start: 03-10-2022 Providing care accor ding to standard [facility] [facility] Work Phone: Start: 03-10-2022 Referral to occupati onal therapist [facility] Work Phone: Start: 03-10-2022 Referral to service [facility] Work Phone: Start: 03-10-2022 Tobacco use cessatio n education [facility] Work Phone: Start: 03-10-2022 [facility] Work Phone: Start: 03-10-2022 MRI of brain without contrast Brain without Contrast [facility] Work Phone: Start: 03-10-2022 Admission procedure [facility] Work Phone: Start: 03-10-2022 Oxygen therapy [facility] Work Phone: Start: 03-10-2022 [facility] Start: 03-10-2022 [facility] Work Phone: Start: 03-10-2022 Thyroid stimulating hormone measurement [facility] Work Phone: Start: 03-08-2022 Hepatitis C antibody , confirmatory test DILATED RETINAL EXAM [facility] Start: 02-17-2022 COVID-19 VACCINE (5 - Booster for Moderna series) COVID-19 VACCINE (5 - Booster for Moderna series) [facility] Start: 09-11-2021 DEPRESSION ASSESSMENT DEPRESSION ASS ESSMENT [facility] Start: 03-23-2012 Urine microalbumin profile DTAP,TDAP,TD (1 - Tdap) [facility] Start: 06-11-2007 Medicare Annual Well ness Visit Medicare Annual Wellness Visit [facility] Start: 2002 Hepatitis B Vaccine (1 of 3 - Risk 3-dose series) Hepatitis B Vaccine (1 of 3 - Risk 3-dose series) [facility] Start: 2002 RSV Vaccine (1 - 1-d ose 60+ series) RSV Vaccine (1 - 1-dose 60+ series) [facility] Start: 1960 Anxiety Screening Anxiety Screening [facility] Start: 1960 Depression Screening Depression Scre ening [facility] End: 03-21-2023 CBC panel - Blood by Automated count CBC Lab Routine Controlled type 2 diabetes mellitus without complication, without long-term current use of insulin (HCC) Every 6 months for 12 Occurrences starting 03/21/2022 until 03/21/2023 [facility] Work Phone: Comment on above: Every 6 months for 1 2 Occurrences starting 03/21/2022 until 03/21/2023 End: 03-21-2023 Comprehensive metabolic 2000 panel - Serum or Plasma COMP METABOLIC PANEL Lab Routine Controlled type 2 diabetes mellitus without complication, without long-term current use of insulin (HCC) Every 6 months for 12 Occurrences starting 03/21/2022 until 03/21/2023 [facility] Work Phone: Comment on above: Every 6 months for 1 2 Occurrences starting 03/21/2022 until 03/21/2023 End: 12-27-2024 CT Chest WO contrast CT CHEST WO IVCON Radiology Routine Follicular bronchiolitis (HCC) Chronic cough 1 Occurrences starting 11/28/2023 until 12/27/2024 [facility] Work Phone: Comment on above: 1 Occurrences starti ng 11/28/2023 until 12/27/2024 CT Chest WO contrast CT CHEST WO IVCON Radiology Routine Follicular bronchiolitis (HCC) Chronic cough 12/05/2023 8:38 AM EDT [facility] Work Phone: Folate [Moles/volume ] in Serum or Plasma [facility] End: 03-21-2023 Hemoglobin A1c in Blood HGB A1C Lab Routine Controlled type 2 diabetes mellitus without complication, without long-term current use of insulin ([facility]) Every 3 months for 24 Occurrences starting 03/21/2022 until 03/21/2023 [facility] Work Phone: Comment on above: Every 3 months for 2 4 Occurrences starting 03/21/2022 until 03/21/2023 Hemoglobin A1c/Hemoglobin.total in Blood [facility] Work Phone: Hemoglobin A1c/Hemoglobin.total in Blood [facility] Influenza virus A an d B RNA and SARS-CoV-2 (COVID-19) N gene panel - Respiratory specimen by DONAVAN with probe detection COVID WITH FLUA+B, ROUTINE Microbiology Routine Acute cough Ordered: 03/21/2022 [facility] Work Phone: Comment on above: Ordered: 03/21/2022 Influenza virus A an d B RNA and SARS-CoV-2 (COVID-19) N gene panel - Respiratory specimen by DONAVAN with probe detection COVID WITH FLUA+B, ROUTINE Microbiology Routine Suspected COVID-19 virus infection Ordered: 06/02/2022 [facility] Work Phone: Comment on above: Ordered: 06/02/2022 End: 03-21-2023 Lipid 1996 panel - Serum or Plasma LIPID PANEL BASIC Lab Routine Controlled type 2 diabetes mellitus without complication, without long-term current use of insulin ([facility]) Every 6 months for 12 Occurrences starting 03/21/2022 until 03/21/2023 [facility] Work Phone: Comment on above: Every 6 months for 1 2 Occurrences starting 03/21/2022 until 03/21/2023 Magnesium measurement [facility] End: 08-30-2024 MADISON SCREENING MADISON SCREENING Radiology Routine Encounter for screening mammogram for malignant neoplasm of breast 1 Occurrences starting 08/01/2023 until 08/30/2024 [facility] Work Phone: Comment on above: 1 Occurrences starti ng 08/01/2023 until 08/30/2024 End: 09-05-2025 MG Breast Screening MADISON SCREENING Radiology Routine Encounter for screening mammogram for breast cancer 1 Occurrences starting 08/06/2024 until 09/05/2025 [facility] Work Phone: Comment on above: 1 Occurrences starti ng 08/06/2024 until 09/05/2025 Patient referral [facility] Work Phone: Radiologic exam ches t 2 views XR CHEST 2V FRONTAL/LAT Radiology Routine Acute cough 03/21/2022 6:55 PM EDT [facility] Work Phone: End: 06-08-2023 Radiologic exam chest 2 views XR CHEST 2V FRONTAL/LAT Radiology Routine Follicular bronchiolitis (HCC) 1 Occurrences starting 05/09/2022 until 06/08/2023 [facility] Work Phone: Comment on above: 1 Occurrences starti ng 05/09/2022 until 06/08/2023 End: 06-08-2023 SPIROMETRY WITH DILATOR IF OBSTRUCTED SPIROMETRY WITH DILATOR IF OBSTRUCTED PFT Routine Follicular bronchiolitis (HCC) 1 Occurrences starting 05/09/2022 until 06/08/2023 [facility] Work Phone: Comment on above: 1 Occurrences starti ng 05/09/2022 until 06/08/2023 SPIROMETRY WITH DILA TOR IF OBSTRUCTED SPIROMETRY WITH DILATOR IF OBSTRUCTED PFT Routine Follicular bronchiolitis (HCC) 11/25/2022 9:43 AM EDT [facility] Work Phone: Thyroid stimulating hormone measurement [facility] Work Phone: End: 03-21-2023 Thyrotropin [Units/volume] in Serum or Plasma TSH BLD Lab Routine Controlled type 2 diabetes mellitus without complication, without long-term current use of insulin (HCC) Every 3 months for 24 Occurrences starting 03/21/2022 until 03/21/2023 [facility] Work Phone: Comment on above: Every 3 months for 2 4 Occurrences starting 03/21/2022 until 03/21/2023 [facility] Immunizations Immunization Date Immunization Notes Care Provider [facility] 07-13-2024 influenza, high dose seasonal, preservative-free Immunization [place] Work Phone: [facility] 07-13-2024 influenza virus vaccine, unspecified formulation Dorie Gill APRN.DISPOSAL PLANT OPERATOR Work Phone: [facility] 06-24-2024 respiratory syncytia l virus (RSV) vaccine, adjuvanted (AREXVY) Immunization [place] Work Phone: [facility] 06-23-2024 respiratory syncytia l virus (RSV) vaccine, adjuvanted (AREXVY) Darin Alonzo MD Work Phone: [facility] 05-09-2024 COVID-19 vaccine (NOVAVAX) Dorie Gill APRN.DISPOSAL PLANT OPERATOR Work Phone: [facility] 02-22-2024 TD(adult) unspecifie d formulation Darleen Orr APRN.DISPOSAL PLANT OPERATOR Work Phone: [facility] 02-22-2024 tetanus and diphther ia toxoids, adsorbed, preservative free, for adult use (5 Lf of tetanus toxoid and 2 Lf of diphtheria toxoid) Darleen Orr ROR ENGINEER.DISPOSAL PLANT OPERATOR Work Phone: [facility] 07-15-2023 influenza (HD-IIV4) vaccine, age 65+ yr, high dose, quadrivalent, PF (FLUZONE HIGH-DOSE) Immunization [place] Work Phone: [facility] 07-15-2023 influenza virus vaccine, unspecified formulation Screen Wstr [facility] 07-02-2022 influenza, high-dose , quadrivalent vaccine (FLUZONE HIGH DOSE QUADRIVALENT) Immunization [place] Work Phone: [facility] 07-02-2022 influenza virus vaccine, unspecified formulation Pamela Aranda MD Work Phone: [facility] 07-03-2021 influenza, high-dose , quadrivalent vaccine (FLUZONE HIGH DOSE QUADRIVALENT) Darin Alonzo MD Work Phone: [facility] Work Phone: 10-29-2020 COVID-19 vaccine, fu ll dose (MODERNA) Darin Alonzo MD Work Phone: [facility] 07-06-2020 zoster vaccine recombinant Darin Alonzo MD Work Phone: [facility] Work Phone: 06-09-2020 influenza, high-dose , quadrivalent vaccine (FLUZONE HIGH DOSE QUADRIVALENT) Darin Alonzo MD Work Phone: [facility] 05-12-2020 zoster vaccine recombinant Darin Alonzo MD Work Phone: [facility] Work Phone: 04-07-2020 zoster vaccine recombinant Darin Alonzo MD Work Phone: [facility] Work Phone: 07-06-2019 influenza, high dose seasonal, preservative-free Darin Alonzo MD Work Phone: [facility] 07-03-2018 influenza, high dose seasonal, preservative-free Darin Alonzo MD Work Phone: [facility] Work Phone: 07-15-2017 influenza, high dose seasonal, preservative-free Darin Alonzo MD Work Phone: [facility] Work Phone: 07-02-2016 influenza, high dose seasonal, preservative-free Darin Alonzo MD Work Phone: [facility] Work Phone: 08-10-2015 pneumococcal polysaccharide vaccine, 23 valent Darin Alonzo MD Work Phone: [facility] 06-11-2015 influenza, high dose seasonal, preservative-free Darin Alonzo MD Work Phone: [facility] Work Phone: 08-11-2014 pneumococcal conjuga te vaccine, 13 valent Darin Alonzo MD Work Phone: [facility] 06-25-2014 influenza, seasonal, injectable Darin Alonzo MD Work Phone: [facility] 06-22-2013 influenza virus vaccine, unspecified formulation Darin Alonzo MD Work Phone: [facility] Work Phone: 06-02-2012 influenza virus vaccine, unspecified formulation Darin Alonzo MD Work Phone: [facility] 03-22-2012 tetanus and diphther ia toxoids, adsorbed, preservative free, for adult use (2 Lf of tetanus toxoid and 2 Lf of diphtheria toxoid) Darin Alonzo MD Work Phone: [facility] 10-25-2011 zoster vaccine, live Darin Alonzo MD Work Phone: [facility] 06-30-2011 influenza virus vaccine, unspecified formulation Darin Alonzo MD Work Phone: [facility] 06-15-2010 influenza virus vaccine, unspecified formulation Darin Alonzo MD Work Phone: [facility] Work Phone: 06-18-2009 influenza virus vaccine, unspecified formulation Darin Alonzo MD Work Phone: [facility] 07-16-2007 influenza virus vaccine, unspecified formulation Darin Alonzo MD Work Phone: [facility] 07-03-2006 influenza virus vaccine, unspecified formulation Darin Alonzo MD Work Phone: [facility] Work Phone: 08-29-2003 pneumococcal polysaccharide vaccine, 23 valent Nakul Patino MD Work Phone: [facility] Payers Date Payer Category Payer Self-pay [id number] 2023 Unknown [id number] 2013 Private Health Insurance [facility] AARP SUPPLEMENT [id number] 2013-Present [phone] [address] [place] [address] Indemnity [id number] 2013 Private Health Insurance [id number] 2007 Medicare MEDICARE MEDICAR E A AND B [id number] 2007-Present [phone] [address] [address] [place] [address] Medicare [id number] 2007 Medicare [id number] 2007 Medicare [id number] Unknown [id number] Social History Date Type Detail Facility Start: 04-19-2022 End: 04-12-2025 Tobacco smoking status NHIS Never smoked tobacco [facility] Work Phone: Start: 11-08-2021 End: 03-07-2025 Alcohol intake Current drinker of alcohol (finding) [facility] Start: 08-10-2012 History SDOH Alcohol Comment Rarely. [facility] Start: 09-27-2013 End: 04-19-2022 Tobacco Comment Parents did not smoke in childhood home. Spouse smoked in home for about 10 years. [facility] Start: 1940 Sex Assigned At Not on file [facility] Start: 03-10-2022 End: 03-21-2023 Tobacco smoking status NHIS Unknown if ever smoked [facility] Start: 1940 Sex Assigned At Female [facility] Start: 02-28-2022 End: 08-01-2022 Exposure to SARS-CoV-2 (event) Not sure [facility] Work Phone: Start: 09-27-2013 End: 04-19-2022 Tobacco use and exposure Smokeless tobacco non-user [facility] Work Phone: Start: 03-01-2023 End: 09-18-2023 History of Social function [facility] Work Phone: Start: 03-01-2023 End: 09-18-2023 Tobacco use panel [facility] Work Phone: Adult Depression Screening Assessment 0 [facility] Work Phone: Medical Equipment Procedure Code Equipment Code Equipment Original Text Equipment Identifier Dates [id number], [id number], [id number], [id number] Start: 03-26-2021 End: 05-17-2024 Comment on above: Test blood sugar(s) 1 times daily. Dx: Type 2 DM - Controlled E11.9 Insulin: No Test 1 time daily. [id number], [id number] Start: 12-19-2016 Comment on above: [employer] Pr o test strips. To be tested 2 times a day One touch ultra 2, t est strips Test 3 times daily. Dx: E11.9 Insulin: No Goals Date Patient Goal Desired Activity /State Functional Status Date Assessment Result Facility 03-11-2022 Functional status Ambulates;Bath room Privilege [facility] Work Phone: 10-09-2017 Are you deaf, or do you have serious difficulty hearing No 10/09/2017 12:55 PM Christy Bardales PA-C No [facility] 10-09-2017 Are you blind, or do you have serious difficulty seeing, even when wearing glasses No 10/09/2017 12:55 PM Christy Bardales PA-C No [facility] 10-09-2017 Do you have serious difficulty walking or climbing stairs No 10/09/2017 12:55 PM Christy Bardales PA-C No [facility] 10-09-2017 Do you have difficul ty dressing or bathing No 10/09/2017 12:55 PM Christy Bardales PA-C No [facility] 10-09-2017 Because of a physica l, mental, or emotional condition, do you have difficulty doing errands alone such as visiting a physician's office or shopping No 10/09/2017 12:55 PM Christy Bardales PA-C No [facility] Mental Status Date Assessment Result Facility 04-12-2025 Cognitive function Voice/Name [facility] Work Phone: 03-11-2022 Cognitive function Voice/Name [facility] Work Phone: 03-10-2022 Cognitive function Voice/Name [facility] Work Phone: 10-09-2017 Because of a physica l, mental, or emotional condition, do you have serious difficulty concentrating, remembering, or making decisions No 10/09/2017 12:55 PM Christy Bardales PA-C No [facility] Clinical Notes 08-11-2014 to 04-12-2025 Telephone Encounter - Christi Quiñonez MA - 04/10/2025 2:26 PM EDTTelephone Encounter - Christi Quiñonez MA - 04/10/2025 2:26 PM EDTPatient InstructionsPatient Instructions Note Date & Type Note Facility 04-12-2025 Radiology Diagnostic study note [facility] Imaging Services [address] [place] [address] CTA Head AND Neck W/ Contrast MR#: [id number] Acct: [id number] Name: SHANNON LEIJA Rep #: [id number] : 1940 F 84 From: Lauren Stauffer MD PCP: Dr. Darin Alonzo MD Status: REG E R Study:CTA Head AND Neck W/ Contrast Date of E xam: 04/12/25 Exam# [id number] Ordering Dr: Jim Owens DO PROCEDURE: CTA [...] CT/CTA Head AND Neck W/ Contrast IMPRESSION: Enzr-pyxagux-ryrk-right stenosis, proximal extracranial ICA, as seen previously. No thrombosis, high-grade stenosis, dissection or aneurysm in the cervical or intracranial arteries. Patent dural venous sinuses. Reading Location: [facility] CC: Dr. Darin Alonzo MD; Dr. Jim Owens, DO ~ Client Engagement Specialist: Signed [facility] 04-10-2025 Telephone encounter Note Printed medication list & sent to mail. Christi Quiñonez MA [facility] 04-10-2025 Miscellaneous Notes Printed medication list & sent to mail. Christi Quiñonez MA Please print a list of her medications And mail to her Regards, Darin Alonzo MD Pt called in and reports she will be flying down to [place] in June. She was wanting to know about taking her pills on her carry on. She said the travel physical therapist told her she they want them I the original bottles. The Pt states she wants to put them in the Monday-Monday pill container. Then she wanted to know if she had a print out of what she takes from the providers office would that be good enough, or does she need a letter from her provider. Please call and advise. Aliyah Clemens, SKY documented in this encounter [facility] 04-10-2025 Telephone encounter Note Please print a list of her medications And mail to her Regards, Darin Alonzo MD [facility] 04-09-2025 Telephone encounter Note Pt called in and reports she will be flying down to [place] in June. She was wanting to know about taking her pills on her carry on. She said the travel physical therapist told her she they want them I the original bottles. The Pt states she wants to put them in the Monday-Monday pill container. Then she wanted to know if she had a print out of what she takes from the providers office would that be good enough, or does she need a letter from her provider. Please call and advise. Aliyah Clemens RN [facility] 03-07-2025 Instructions Griselda Lema APRN.OLESYA - 03/07/2025 7:26 AM EDT - [...] - Keep up your exercise routine at [employer] six days a week. - A magnesium refill has been sent: a two-week supply to [facility] now and a 180-day supply via [facility] (expected in about one week). - Schedule a full blood panel in three months to check magnesium level, hemoglobin A1c, kidney and liver function, electrolytes, thyroid, and cholesterol. - If you choose to try increasing telmisartan and stopping amlodipine, take two telmisartan daily, stop amlodipine, monitor your blood pressure at home, and notify me via [employer]. - If you wish to trial stopping your statin before the cholesterol recheck, hold it for 4-6 weeks prior to your lab draw. documented in this encounter [facility] 03-07-2025 Note HNO ID: [id number] Author: GRISELDA LEMA APRN.DISPOSAL PLANT OPERATOR Service: ? Author Type: Nurse Practitioner Type: Progress Notes Filed: 03/07/2025 08:35 Note Text: CC: Patient presents with: Recheck: 4 week follow up IFRAH Leija is a 84 year old female who presents today for follow up on leg cramps and insomnia. Recording using [employer] software for draft documentation of the visit was discussed with the patient/authorized customer success representative; all questions welcomed and answered. Patient/authorized customer success representative agreed to proceed Muscle Cramps: - [...] with sleep. Lifestyle: - Shannon exercises at [employer] six days a week. - Enjoys attending shows at [employer]. REVIEW OF SYSTEMS General: no fevers, no [...] mg Tab Take 81 mg by mouth. Etgvfwgcgdimx-Itbmlslc-Wtmcjn (CENTRUM SILVER) tab Take 1 tablet by [...] mood and affect (more content not included)... [facility] 03-07-2025 History of Presen t illness Narrative CC: Patient presents with: Recheck: 4 week follow up IFRAH Leija is a 84 year old female who presents today for follow up on leg cramps and insomnia. Recording using [employer] software for draft documentation of the visit was discussed with the patient/authorized customer success representative; all questions welcomed and answered. Patient/authorized customer success representative agreed to proceed Muscle Cramps: - [...] with sleep. Lifestyle: - Shannon exercises at [employer] six days a week. - Enjoys attending shows at [employer]. REVIEW [employer] SYSTEM[employer] General: no fevers, no [...] mg Tab Take 81 mg by mouth. Vhownepqqkmxk-Iabwoeqj-Cvlfre (CENTRUM SILVER) tab Take 1 tablet by [...] Diabetic Foot Exam due on 03/21/2025 Covid-19 Vaccine(2023- season) due on 10/11/2025 Urine Albumin:Creatinine Ratio [...] Refill for magnesium sent: 2-week supply to [facility] and 3-month supply to [facility]. - Ordered serum magnesium level recheck in [...] 2 diabetes mellitus without complication, unspecified whether tree sapper insulin use (HCC) (E11.9) - not discussed [...] Griselda Lema APRN.CNP documented in this encounter [facility] 03-03-2025 Telephone encounter Note Patient to contact office. Lo Miranda LPN [facility] 03-03-2025 Miscellaneous Notes Patient to contact office. Lo Miranda LPN documented in this encounter [facility] 03-03-2025 Telephone encounter Note [facility] 12/13/24 Patient phones requesting refills as follows: Requested Prescriptions Pending Prescriptions Disp Refills ipratropium bromide (ATROVENT) 42 mcg (0.06 %) nasal spray [Pharmacy Med Name: Ipratropium [place] 0.06 % Nasal Solution] 135 mL 3 Sig: USE 2 SPRAYS NASALLY 4 TIMES DAILY Please review and advise. Charisse Lagos LPN [facility] 03-03-2025 Miscellaneous Notes [facility] 12/13/24 Patient phones requesting refills as follows: Requested Prescriptions Pending Prescriptions Disp Refills ipratropium bromide (ATROVENT) 42 mcg (0.06 %) nasal spray [Pharmacy Med Name: Ipratropium [place] 0.06 % Nasal Solution] 135 mL 3 Sig: USE 2 SPRAYS NASALLY 4 TIMES DAILY Please review and advise. Charisse Lagos LPN documented in this encounter [facility] 02-10-2025 Telephone encounter Note Discussed further in visit Griselda Lema APRN.DISPOSAL PLANT OPERATOR [facility] 02-10-2025 Miscellaneous Notes Discussed further in visit Griselda Lema APRN.CNP Patient notified and states taking medication daily after lunch. Magnesium level actually went down further. Is she tolerating the supplement I sent in and taking as ordered? Thank you Griselda Lema APRN.CNP documented in this encounter [facility] 02-07-2025 Instructions Griselda Lema APRN.CNP - 02/07/2025 7:31 AM EDT - Stop taking pantoprazole starting tomorrow morning. - Begin famotidine (Pepcid) 40 mg at bedtime tonight; prescription sent to [facility] for a 30-day supply. Once your reflux [...] bedtime as prescribed; refills sent to [facility] [place] and [facility]. - Watch for any return of muscle cramps, heartburn, cough, or loose stools and let us know if these problems persist. documented in this encounter [facility] 02-07-2025 Note HNO ID: [id number] Author: GRISELDA LEMA APRN.CNP Service: ? Author [...] started on a magnesium supplement. Recording using VOIP Depot software for draft documentation of the visit was discussed with the patient/authorized customer success representative; all questions welcomed and answered. Patient/authorized customer success representative agreed to proceed Hypomagnesemia: - Magnesium [...] mg Tab Take 81 mg by mouth. Gouchtwrbwemb-Ytrarngf-Xirxre (CENTRUM SILVER) tab Take 1 tablet by [...] Wt 72.1 k (more content not included)... [facility] 02-07-2025 History of Presen t illness Narrative CC: Patient presents with: Recheck: 4 week follow up HPI Shannon Leija is a 84 year old female who presents today for follow up on insomnia which she was started on trazadone for and muscle cramps. Was found to have low magnesium so started on a magnesium supplement. Recording using VOIP Depot software for draft documentation of the visit was discussed with the patient/authorized customer success representative; all questions welcomed and answered. Patient/authorized customer success representative agreed to proceed Hypomagnesemia: - Magnesium [...] mg Tab Take 81 mg by mouth. Hnvbbsuuxlogd-Zsmlmmxz-Fukslv (CENTRUM SILVER) tab Take 1 tablet by [...] - Magnesium supplementation to be filled at [facility]. - Will reassess symptoms at follow-up. - recheck mag level in 1-2 weeks. 3. Gastroesophageal reflux disease without esophagitis (K21.9) - Suspect pantoprazole contributing to hypomagnesemia. - Discontinued pantoprazole. - Initiated famotidine 40 mg orally at bedtime; prescription sent to [facility] for 30 days. - Will evaluate efficacy of famotidine in controlling reflux symptoms. 4. Acute cough (R05.1) - Cough well-controlled with current inhaler therapy from pulmonology. - No wheezing, shortness of breath, or other respiratory symptoms reported. 5. Insomnia, unspecified type (G47.00) - Insomnia partially managed with trazodone; however, sleep disrupted by muscle cramps. - Continue trazodone; prescription refilled at [facility]. Short Rx sent to local pharmacy - [...] Griselda Lema APRN.CNP documented in this encounter [facility] 02-07-2025 Telephone encounter Note Will discuss further at upcoming appointment Griselda Lema APRN.CNP [facility] 02-07-2025 Miscellaneous Notes Will discuss further at upcoming appointment Griselda Lema APRN.CNP Patient called said she continues to have leg cramps even with taking the magnesium chloride 64mg Patient asking if a higher dose should be called in? She has 7 pills left Can be reached at [phone] Please advise documented in this encounter [facility] 02-05-2025 Telephone encounter Note Patient notified and states taking medication daily after lunch. [facility] 02-05-2025 Telephone encounter Note Magnesium level actually went down further. Is she tolerating the supplement I sent in and taking as ordered? Thank you Griselda Lema APRN.DISPOSAL PLANT OPERATOR [facility] 02-05-2025 Telephone encounter Note Patient needs to contact office. Appt scheduled 02/07/3025. Lo Miranda LPN [facility] 02-05-2025 Miscellaneous Notes Patient needs to contact office. Appt scheduled 02/07/3025. Lo Miranda LPN documented in this encounter [facility] 02-04-2025 Telephone encounter Note Patient called said she continues to have leg cramps even with taking the magnesium chloride 64mg Patient asking if a higher dose should be called in? She has 7 pills left Can be reached at [phone] Please advise [facility] Work Phone: 01-15-2025 Telephone encounter Note Left message on K[employer]. [facility] 01-15-2025 Miscellaneous Notes Left message on secure VM. I sent in a prescription for her to [facility] to take daily. Thank you Griselda Lema APRN.CNP Phoned patient and went over results, notes from Griselda Lema RESERVATIONS MANAGER with understanding. Patient is asking what dose of Magnesium does she need to be taking? Magnesium is low and possibly the cause of her cramping. Start once a day supplement and recheck in 1-2 weeks after starting this. Thank you Griselda Lema APRN.CNP documented in this encounter [facility] 01-15-2025 Telephone encounter Note I sent in a prescription for her to [facility] to take daily. Thank you Griselda Lema APRN.CNP [facility] 01-13-2025 Telephone encounter Note Phoned patient and went over results, notes from Griselda Lema RESERVATIONS MANAGER with understanding. Patient is asking what dose of Magnesium does she need to be taking? [facility] 01-13-2025 Telephone encounter Note Magnesium is low and possibly the cause of her cramping. Start once a day supplement and recheck in 1-2 weeks after starting this. Thank you Griselda Lema APRN.CNP [facility] 01-10-2025 Instructions Griselda Lema APRN.CNP - 01/10/2025 [...] any further adjustments. documented in this encounter [facility] 01-10-2025 Note HNO ID: [id number] Author: GRISELDA LEMA APRN.CNP Service: ? Author Type: Nurse Practitioner Type: Progress Notes Filed: 01/10/2025 07:59 Note Text: CC: Patient presents with: Recheck: 3 month follow up HPI Shannon Leija is a 84 year old female who presents today for routine follow up. Recording using VO[employer] Depot software for draft documentation of the visit was discussed with the patient/authorized customer success representative; all questions welcomed and answered. Patient/authorized customer success representative agreed to proceed Diabetes Mellitus: - [...] dyspnea, edema, or headaches. - Exercises at [employer] 6 days a week: strength training and [...] Insulin: No COMPO (more content not included)... [facility] 01-10-2025 History of Presen t illness Narrative CC: Patient presents with: Recheck: 3 month follow up HPI Shannon Leija is a 84 year old female who presents today for routine follow up. Recording using ambient IAMINTOIT software for draft documentation of the visit was discussed with the patient/authorized customer success representative; all questions welcomed and answered. Patient/authorized customer success representative agreed to proceed Diabetes Mellitus: - [...] dyspnea, edema, or headaches. - Exercises at [employer] 6 days a week: strength training and [...] mg Tab Take 81 mg by mouth. Advwqgpayyvup-Nnlqmzvp-Ysrmxq (CENTRUM SILVER) tab Take 1 tablet by [...] 2 diabetes mellitus without complication, unspecified whether retirement insulin use (HCC) (E11.9) - Hemoglobin A1c [...] Patient agreeable to treatment plan. Griselda Lema APRN.DISPOSAL PLANT OPERATOR documented in this encounter [facility] 12-23-2024 Telephone encounter Note RX pended for mail order Charisse Lagos LPN [facility] 12-23-2024 Miscellaneous Notes RX pended for mail order Charisse Lagos LPN documented in this encounter [facility] 12-13-2024 History of Presen t illness Narrative Images from the original note were not included. Pulmonary Medicine Patients name: Shannon Leija PCP: Darin Alonzo MD CC: follow-up HPI: Shannon Leija is a 84 year old female never smoker with PMH significant for HTN, DM2, rhinitis with postnasal drip, hypothyroidsim, GERD, HLD, follicular bronchiolitis/BALT. Current inhaled therapy with [facility]. She presents today for follow-up. [facility] 06/2024 with continued chronic cough secondary to [...] TAKE 1 TABLET BY MOUTH TWICE DAILY Mtrckouqdachs-Cesovcnv-Qdojcm Tab Commonly known as: CENTRUM SILVER pantoprazole [...] DATE OF EXAM: Dec 05 2023 8:38AM [facility] 0541 - CT CHEST WO IVCON / [...] abnormality in the imaged upper abdomen. Cholelithiasis. Predator Control Trapper (topogram) images: No additional findings. Labs: WBC [...] Neut (k/uL) Date Value 12/15/2023 4.38 Abs [place] (k/uL) Date Value 12/15/2023 0.45 07/08/2020 0.41 [...] which included preparing to see the patient, xzek-tl-jbai patient care, completing clinical documentation, performing a medically appropriate examination, counseling and educating the patient/family/caregiver, and ordering medications, tests, or procedures. documented in this encounter [facility] 12-13-2024 Note HNO ID: [id number] Author: DORIE GILL APRN.OLESYA Service: ? Author [...] TAKE 1 TABLET BY MOUTH TWICE DAILY Lkzpuusaavcen-Gmqkaaxi-Giaaxc Tab Commonly known as: CENTRUM SILVER pantoprazole [...] DATE OF EXAM: Dec 05 2023 8:38AM [facility] 0541 - CT CHEST WO IVCON / [...] chest 09/29/2010 RESULT: (more content not included)... [facility] 11-20-2024 Telephone encounter Note Prescription Refill [...] Pagan RN November 20, 2024 8:37 AM [facility] 11-20-2024 Miscellaneous Notes Prescription Refill Information The [...] 2024 8:37 AM documented in this encounter [facility] 11-18-2024 Telephone encounter Note Patient calling again to let us know that she had been instructed by PCP recently to begin discontinuing her pantoprazole. She is currently using this every 3 days. Advised patient she should return to daily use- could certainly be contributing to her increased coughing. Will make EB aware. Charisse Lagos LPN [facility] 11-18-2024 Miscellaneous Notes Patient calling again to [...] Charisse Lagos LPN documented in this encounter [facility] 11-18-2024 Telephone encounter Note Patient calling with one week history of cough and PND. Cough is forceful and occasionally productive of clear mucus, worst overnight. No fever, chills, or myalgias. Some chest discomfort from continued cough and has had episodes of post tussive emesis. She denies wheezing. Asking if she should be treated for exacerbation? Charisse Lagos LPN [facility] 10-17-2024 Telephone encounter Note Per MyChart message from 12/13/23- patient may benefit from ICC/LABA therapy, but she wanted to continue ICC alone as she had just switched to Arnuity. PILAR 06/14/24- LABA was offered and patient declined as she had just filled a 90 day supply of Arnuity. Please advise. Charisse Lagos LPN [facility] 10-17-2024 Miscellaneous Notes Per MyChart message from [...] Christy Pratt MA documented in this encounter [facility] 10-17-2024 Telephone encounter Note Patient phones to report she has been using arnuity ellipta inhaler but is still coughing. She is wondering if you wan to change her medication. [facility]. She reports having an appointment on 12/13/24 but is available to come in sooner if indicated by the provider. Christy Pratt MA [facility] 10-11-2024 Note HNO ID: [id number] Author: GRISELDA LEMA APRN.DISPOSAL PLANT OPERATOR Service: ? Author Type: Nurse Practitioner Type: [...] him. Is starting grief sharing class at [employer] soon and hoping this will help. Has [...] mg Tab Take 81 mg by mouth. Dlwiainxasrzi-Vxuqnmoa-Ssipth (CENTRUM SILVER) tab Take 1 tablet by mouth once daily. FAMILY HISTORY Adopted: Yes Social History Tobacco Use Smoking status: Never Smokeless tobacco: Never Tobacco comments: (more content not included)... [facility] 10-11-2024 History of Presen t illness [...] him. Is starting grief sharing class at [employer] soon and hoping this will help. Has [...] mg Tab Take 81 mg by mouth. Gjihnfzlvvxsd-Uwyaefem-Aulktx (CENTRUM SILVER) tab Take 1 tablet by [...] 2 diabetes mellitus without complication, unspecified whether retirement insulin use (HCC) - ICD9: 250.00, ICD10: [...] - Instructed patient to contact office or kjfog-jc-nthw after-hours promptly should condition worsen or any new symptoms appear. - Counseling Center [facility] and after hours crisis line 4. [...] Griselda Lema APRN.CNP documented in this encounter [facility] 09-19-2024 History of Presen t illness Narrative [...] PATIENT PRESENTS WITH AN IMPLANTABLE OR ATTACHED HOT DIP TINNING SUPERVISOR: No RADIOLOGY DEPARTMENT: Mammography PERIPHERAL IV DATA: Not applicable SIGNED BY: Rebekah Guerrier [employer] September 19, 2024 10:32 AM documented in this encounter [facility] 09-19-2024 Note HNO ID: [id number] Author: REBEKAH GUERRIER Mammo Tech Service: ? Author Type: Disassembler Product Type: Progress Notes Filed: 09/19/2024 10:32 Note [...] PATIENT PRESENTS WITH AN IMPLANTABLE OR ATTACHED HOT DIP TINNING SUPERVISOR: No RADIOLOGY DEPARTMENT: Mammography PERIPHERAL IV DATA: Not applicable SIGNED BY: Poncho Adler September 19, 2024 10:32 AM [facility] 09-19-2024 Telephone encounter Note Patient calling and asking about thyroid lab testing results and instructions. Patient Notified: Thyroid levels in normal range. Continue current dosing of levothyroxine. Take care Griselda Lema APRN.OLESYA Patient voices understanding. Sarina Bobby RN [facility] 09-19-2024 Miscellaneous Notes Patient calling and asking about thyroid lab testing results and instructions. Patient Notified: Thyroid levels in normal range. Continue current dosing of levothyroxine. Take care Griselda Lema APRN.CNP Patient voices understanding. Sarina Bobby RN documented in this encounter [facility] 08-07-2024 Telephone encounter Note Mammogram order placed. Please contact patient to schedule. Arturo Main MA [facility] 08-07-2024 Miscellaneous Notes Mammogram order placed. Please contact patient to schedule. Arturo Main MA Please help her schedule Regards, Darin Alonzo MD Patient calls and states that it is time for her annual mammogram. Patient asking if orders can be placed so that she can get this scheduled? Sarina Bobby RN documented in this encounter [facility] 08-06-2024 Telephone encounter Note Please help her schedule Regards, Darin Alonzo MD [facility] 08-06-2024 Telephone encounter Note Patient calls and states that it is time for her annual mammogram. Patient asking if orders can be placed so that she can get this scheduled? Sarina Bobby RN [facility] 08-05-2024 Telephone encounter Note Patient notified. [facility] 08-05-2024 Miscellaneous Notes Patient notified. TSH still abnormal. Verify she is taking 1 tablet daily. If so, cut one tablet in half once daily and we will recheck in 4-6 weeks. Thank you Griselda Lema APRN.CNP documented in this encounter [facility] 08-05-2024 Telephone encounter Note TSH still abnormal. Verify she is taking 1 tablet daily. If so, cut one tablet in half once daily and we will recheck in 4-6 weeks. Thank you Griselda Lema APRN.CNP [facility] 06-24-2024 Telephone encounter Note Patient notified and Health Maintenance updated. [facility] 06-24-2024 Miscellaneous Notes Patient notified and Health Maintenance updated. No need to get one at this time. Thank you Griselda Lema APRN.CNP Patient calls and wanted office to know that she received her RSV Vaccine today at [facility] (06/24/2024) Patient also was checking with Griselda to see if she needed to get Dtap. Patient states that this was discussed in office that she had gotten a shot about a year ago when she went to [facility] care. Patient making sure that she is not supposed to get another one. Please review and advise, Sarina Bobby RN documented in this encounter [facility] 06-24-2024 Telephone encounter Note No need to get one at this time. Thank you Griselda Lema APRN.CNP [facility] 06-24-2024 Telephone encounter Note Patient calls and wanted office to know that she received her RSV Vaccine today at [facility] (06/24/2024) Patient also was checking with Griselda to see if she needed to get Dtap. Patient states that this was discussed in office that she had gotten a shot about a year ago when she went to [facility] care. Patient making sure that she is not supposed to get another one. Please review and advise, Sarina Bobby RN [facility] 2024 Note HNO ID: [id number] Author: GRISELDA LEMA APRN.DISPOSAL PLANT OPERATOR Service: ? Author Type: Nurse Practitioner Type: [...] Sulfa (Sulfonamide Antibiotics) MEDICATIONS blood sugar diagnostic (MusicPlay AnalyticsTOUCH ULTRA TEST) test strip TEST 1 TIME [...] mg Tab Take 81 mg by mouth. Usklthnowduuq-Nxzdktbm-Xqxxxj (CENTRUM SILVER) tab Take 1 tablet by mouth once daily. FAMILY HISTORY Adopted: Yes Social History Tobacco Use Smoking status: Never Smokeless tobacco: Never Tobacco comments: [place] (more content not included)... [facility] 2024 History of Presen t illness [...] mg Tab Take 81 mg by mouth. Amqewfzyhvfkf-Bwmdjjhz-Ibmybn (CENTRUM SILVER) tab Take 1 tablet by [...] 2 diabetes mellitus without complication, unspecified whether tree sapper insulin use (HCC) - ICD9: 250.00, ICD10: [...] Griselda Lema APRN.CNP documented in this encounter [facility] 06-14-2024 History of Presen t illness Narrative [...] TAKE 1 TABLET BY MOUTH TWICE DAILY Dllamtzglckmv-Jpiffmma-Njnunk Tab Commonly known as: CENTRUM SILVER pantoprazole [...] subcentimeter pulmonary nodules 3. No thoracic lymphadenopathy Client Engagement Specialist: [facility] Transcribe Date/Time: Dec 07 2023 4:07P Dictated by : ARACELI ZARAGOZA MD This examination was interpreted and the report reviewed and electronically signed by: ARACELI ZARAGOZA MD on Dec 07 2023 4:20PM EST Results-Findings * * *Final Report* * * DATE OF EXAM: Dec 05 2023 8:38AM [facility] 0541 - CT CHEST WO IVCON / [...] Gill APRN.OLESYA I spent a total of 35 minutes on the date of the service which included preparing to see the patient, xlqe-yr-rddz patient care, completing clinical documentation, performing a medically appropriate examination, ordering medications, tests, or procedures, and communicating results to the patient/family/caregiver. documented in this encounter [facility] 06-14-2024 Note HNO ID: [id number] Author: DORIE GILL APRN.CNP Service: ? Author [...] TAKE 1 TABLET BY MOUTH TWICE DAILY Ppzkxpwqxrlfz-Zbzjefds-Psfkqf Tab Commonly known as: CENTRUM SILVER pantoprazole [...] subcentimeter pulmonary nodules 3. No thoracic lymphadenopathy Client Engagement Specialist: SAVITA Transcribe Date/Time: Dec 07 2023 4:07P Dictated by : ARACELI ZARAGOZA MD This examination was interpreted and the report reviewed and electronically signed by: ARACELI ZARAGOZA MD on Nov 10 (more content not included)... [facility] 05-17-2024 Telephone encounter Note Prescription Refill [...] Hill LPN May 17, 2024 2:40 PM [facility] 05-17-2024 Miscellaneous Notes Prescription Refill Information The [...] 2024 2:40 PM documented in this encounter [facility] 05-16-2024 Telephone encounter Note The patient has [...] Curtis LPN May 16, 2024 9:56 AM [facility] 05-16-2024 Miscellaneous Notes The patient has been [...] 2024 9:56 AM documented in this encounter [facility] 04-25-2024 Telephone encounter Note Will watch for forms. [facility] 04-25-2024 Miscellaneous Notes Will watch for forms. Patient calls just to notify office that she saw Dr Chaney this morning at [facility] and ordered diabetic shoes. She just wanted office to know that we would be seeing an order come to us. documented in this encounter [facility] 04-25-2024 Telephone encounter Note Patient calls just to notify office that she saw Dr Chaney this morning at [facility] and ordered diabetic shoes. She just wanted office to know that we would be seeing an order come to us. [facility] 03-21-2024 Griselda Barajas APRN.DISPOSAL PLANT OPERATOR - 03/21/2024 7:44 AM EDT Call insurance to see if cost of bryce is going to remain in the 400s. documented in this encounter [facility] 03-21-2024 History of Presen t illness Narrative CC: Patient presents with: Recheck: 3 month DM follow up HPI Shannon Leija is a 83 year old female who presents today for diabetic follow up. Recently lost her so dealing with grief. Staying busy with [employer] members, neighbors, friends, and is maintaining her [...] not check BP's generally. Shannon Goes to [employer] almost daily and has friends there she [...] mg Tab Take 81 mg by mouth. Fbybwaxaskayn-Wbeohpwg-Twitnr (CENTRUM SILVER) tab Take 1 tablet by [...] 2 diabetes mellitus without complication, unspecified whether retirement insulin use (HCC) - ICD9: 250.00, ICD10: [...] Is going to start grief counseling at [employer] next month 6. Acquired hypothyroidism - ICD9: [...] Griselda Lema APRN.CNP documented in this encounter [facility] 02-22-2024 Telephone encounter Note Changed to ointment. [facility] 02-22-2024 Miscellaneous Notes Changed to ointment. Patient calls to report [facility] is not able to dispense the mupirocin cream as they don't have it in stock. Patient asking provider if it is ok to switch to ointment that is in stock. Pended for review. Yoon Jones RN documented in this encounter [facility] 02-22-2024 Telephone encounter Note Patient calls to report [facility] is not able to dispense the mupirocin cream as they don't have it in stock. Patient asking provider if it is ok to switch to ointment that is in stock. Pended for review. Yoon Jones RN [facility] 02-22-2024 Nurse Note This nurse washed wound with soap and water and applied bacitracin cream to wound, covered with Band-Aid and educated pt on washing wound and covering same, she was able to understand. Catina Merlos LPN [facility] 02-22-2024 Nurse Note This nurse washed wound with soap and water and applied bacitracin cream to wound, covered with Band-Aid and educated pt on washing wound and covering same, she was able to understand. Catina Merlos LPN documented in this encounter [facility] 02-22-2024 History of Presen t illness Narrative This note was created using [employer]. Subjective Shannon Leija is a 83 year [...] history is provided by the patient. No touch up painter was used. Laceration The incident occurred 5 [...] by mouth once daily. blood sugar diagnostic (Pencil You InUCH ULTRA TEST) test strip Test 1 time [...] mg Tab Take 81 mg by mouth. Fpypgdtsjoxkg-Ovjccnnj-Eecpyw (CENTRUM SILVER) tab Take 1 tablet by [...] wound care F/U with PCP Darleen Orr APRN.OLESYA documented in this encounter [facility] 02-02-2024 Telephone encounter Note The following approved medication requests have been transmitted electronically. Requested Prescriptions Pending Prescriptions Disp Refills Telmisartan 20 mg tablet [Pharmacy Med Name: Telmisartan 20 MG Oral Tablet] 90 tablet 3 Sig: TAKE 1 TABLET BY MOUTH ONCE DAILY Yahir Parekh APRN.OLESYA [facility] Work Phone: 02-02-2024 Miscellaneous Notes The following [...] Kathia Mayers LPN. documented in this encounter [facility] 02-02-2024 Telephone encounter Note Patient has been [...] Please advise. Thank you. Kathia Mayers LPN. [facility] 01-31-2024 Telephone encounter Note Patient has been [...] Please advise. Thank you. Kathia Mayers LPN. [facility] 01-31-2024 Miscellaneous Notes Patient has been identified [...] Ria Lopez RN documented in this encounter [facility] 01-31-2024 Telephone encounter Note Patient calling for [...] in primary care: 03/21/2024 Ria Lopez RN [facility] 01-10-2024 Telephone encounter Note Spoke with Shannon, she is doing ok. Very thankful for the call. Instructed patient if anything is needed not to hesitate to let us know. [facility] 01-10-2024 Miscellaneous Notes Spoke with Shannon, she [...] Griselda Lema APRN.CNP documented in this encounter [facility] 01-08-2024 Telephone encounter Note T/C patient , johny rang busy. [facility] 01-08-2024 Telephone encounter Note Just received word that patient's spouse . Please send our condolences and ask if there is anything she needs from us. Thank you Griselda Lema APRN.CNP [facility] 12-18-2023 Miscellaneous Notes Patient calling to ask question about her dosing. Went over notes below from Griselda Lema RESERVATIONS MANAGER with understanding, aware one tablet daily except one day a week one and one half tablets. Called and left a detailed voicemail notifying patient of providers message. Clinic phone number was left in case patient had any questions. Sent information to Pt through mobifriends as well. Aliyah Babulski, RN Thyroid level slightly abnormal which may be cause of her dizzy moments. Decrease to 1 tablet daily except 1 and 1/2 tablet one day a week versus her previous 2 tablets one day a week. Recheck in 4 weeks. Thank you Griselda Lema APRN.CNP documented in this encounter [facility] 12-15-2023 Instructions Griselda Lema APRN.OLESYA - 12/15/2023 7:47 AM EDT Increase glimepiride to 2 tablets with breakfast and 1 tablet with dinner. Call in 2 weeks if fasting blood sugar is consistently greater than 150 so we can increase it further. documented in this encounter [facility] 12-15-2023 History of Presen t illness Narrative [...] mg Tab Take 81 mg by mouth. Fpryjhakwwkyx-Bwmrbxne-Wgbhpp (CENTRUM SILVER) tab Take 1 tablet by [...] 2 diabetes mellitus without complication, unspecified whether retirement insulin use (HCC) - ICD9: 250.00, ICD10: [...] Griselda Lema APRN.CNP documented in this encounter [facility] 12-05-2023 History of Presen t illness Narrative [...] PATIENT PRESENTS WITH AN IMPLANTABLE OR ATTACHED HOT DIP TINNING SUPERVISOR: No RADIOLOGY DEPARTMENT: CT; Exam(s) Completed: Chest PERIPHERAL IV DATA: Not applicable SIGNED BY: RT Paula(R) December 05, 2023 9:31 AM documented in this encounter [facility] 12-04-2023 Miscellaneous Notes Patient has been identified [...] Alanis Daniel LPN. documented in this encounter [facility] 11-28-2023 History of Presen t illness Narrative Images from the original note were not included. . [facility] [place] Note Patient name: Shannon Leija PCP: Darin [...] mg Tab Take 81 mg by mouth. Vmtcpsfvbpqlk-Vvunbxgm-Rtzfyl (CENTRUM SILVER) tab Take 1 tablet by [...] 3. Postnasal drip -Continue Flonase nasal spray Pameal Aranda MD [facility] [place] documented in this encounter [facility] 10-30-2023 Miscellaneous Notes Patient has been identified [...] Kathia Mayers LPN. documented in this encounter [facility] 08-14-2023 Miscellaneous Notes Patient has been identified [...] you. Kathia Mayers. documented in this encounter [facility] 08-01-2023 Miscellaneous Notes Pt will be due for a mammogram in August, pt calling for order to be placed. Order pending review. Please call pt to schedule when order is placed. Luisana Curtis LPN documented in this encounter [facility] 07-07-2023 Miscellaneous Notes Patient will picker and packer prednisone from pharmacy. She reports wanting to wait a few days before beginning them. She has increased her inhaler to BID as prescription states and her tessalon pearls to TID as prescribed. She would like to see if this helps as she does not like to take the steroids unless necessary. Christy Pratt MA documented in this encounter [facility] 07-06-2023 Miscellaneous Notes Pt calling back. She [...] Christy Pratt MA documented in this encounter [facility] 05-29-2023 History of Presen t illness Narrative Images from the original note were not included. . [facility] [place] Note Patient name: Shannon Leija PCP: Darin [...] to poor control of her diabetes. At [facility], felt persistent cough more attributable to [...] by mouth once daily. blood sugar diagnostic (MusicPlay AnalyticsTOUCH ULTRA TEST) test strip Test 1 time [...] mg Tab Take 81 mg by mouth. Unafkuzyhkkkm-Yajsdbrx-Dmeagl (CENTRUM SILVER) tab Take 1 tablet by [...] sooner with problems Pamela Aranda MD [facility] [place] documented in this encounter [facility] 05-19-2023 Instructions Griselda Lema APRN.CNP - 05/19/2023 9:11 AM EDT To wean off pantoprazole: Take 1 tablet every other day for a few weeks, then every 3rd for a few weeks, then stop. If you start having heartburn, abdominal pain, nausea, bloating or difficulty swallowing restart at previous step. documented in this encounter [facility] 05-19-2023 History of Presen t illness Narrative CC: Patient presents with: Recheck: 3 month DM follow up HPI Sahnnon Leija is a 82 year old female [...] 12 months Went to diabetic clinic at [facility] 6 weeks ago and has had [...] mg Tab Take 81 mg by mouth. Sjhjcnhfjdvkj-Zykagtcs-Piqhok (CENTRUM SILVER) tab Take 1 tablet by [...] 2 diabetes mellitus without complication, unspecified whether tree sapper insulin use (HCC) - ICD9: 250.00, ICD10: [...] Griselda Lema APRN.CNP documented in this encounter [facility] 04-18-2023 Miscellaneous Notes Patient has been identified [...] Lo Miranda LPN documented in this encounter [facility] 04-10-2023 History of Presen t illness Narrative [...] 2023 10:47 AM documented in this encounter [facility] 04-10-2023 History of Presen t illness Narrative [...] Sulfa (Sulfonamide Antibiotics) MEDICATIONS blood sugar diagnostic (Music[employer] AnalyticsTOUCH ULTRA TEST) test strip Test 1 time [...] mg Tab Take 81 mg by mouth. Gufzkwlyasjti-Vkowkhwc-Gzxmdt (CENTRUM SILVER) tab Take 1 tablet by [...] Griselda Lema APRN.CNP documented in this encounter [facility] 03-01-2023 History of Presen t illness Narrative [...] PRESCRIPTION COMPOUNDED PRESCRIPTION Aspirin 81 mg Tab Rhkwwehxcgqzb-Vyzjtije-Mxrulg (CENTRUM SILVER) tab Review of Systems CONSTITUTIONAL: [...] Darin Alonzo MD documented in this encounter [facility] 02-28-2023 Miscellaneous Notes Pt notified not certain [...] Kathia Swanson LPN documented in this encounter [facility] 02-28-2023 Miscellaneous Notes appt made for tomorrow [...] pressure worse . documented in this encounter [facility] 02-27-2023 Miscellaneous Notes Patient has been identified [...] Kathia Swanson LPN documented in this encounter [facility] 02-23-2023 Miscellaneous Notes Patient calls back to [...] Sarina Gomez LPN documented in this encounter [facility] 12-13-2022 Miscellaneous Notes Pt calls in for refill of levothyroxine 125 mcg. Previous rx went to [facility] instead of [facility]. Patient has been [...] Alanis Daniel LPN documented in this encounter [facility] 11-25-2022 Instructions Pamela Aranda MD - 11/25/2022 10:18 AM EDT Obtain Flonase nasal spray. One spray each nostril once daily. Rinse mouth after use. documented in this encounter [facility] 11-25-2022 History of Presen t illness Narrative Images from the original note were not included. . [facility] [place] Note Patient name: Shannon Leija PCP: Darin [...] 110 mcg 1 puff twice daily. At [facility] with me, she had been to [...] mg Tab Take 81 mg by mouth. Xdvpvwzfvpbgy-Tyxbcfep-Naarbk (CENTRUM SILVER) tab Take 1 tablet by [...] and antireflux measures Pamela Aranda MD [facility] [place] documented in this encounter [facility] 11-25-2022 Nurse Note Intake information documented in the prior visit with ANUEL Hollins today. documented in this encounter [facility] 11-25-2022 History of Presen t illness Narrative PULM FUNCTION SMARTBLOCK: Provider: Pamela Aranda MD Assisting Tech: ANUEL Hollins Spirometry: 1 documented in this encounter [facility] 11-09-2022 Miscellaneous Notes Patient has been identified [...] Jean Kaba RN documented in this encounter [facility] 11-07-2022 History of Presen t illness Narrative [...] 2022 10:02 AM documented in this encounter [facility] 11-01-2022 History of Presen t illness Narrative [...] on steroids at that time. She joined [employer] Right now she is doing the treadmill [...] PRESCRIPTION COMPOUNDED PRESCRIPTION Aspirin 81 mg Tab Lspmtzjlrtuil-Ppoomuvn-Bvngqy (CENTRUM SILVER) tab Review of Systems CONSTITUTIONAL: [...] 2 diabetes mellitus without complication, unspecified whether retirement insulin use (HCC) - ICD9: 250.00, ICD10: E11.9 Cont the current medication and exercise regimen Darin Alonzo MD documented in this encounter [facility] 09-21-2022 Miscellaneous Notes Med updated to reflect [...] result. Thank you. documented in this encounter [facility] 08-23-2022 Miscellaneous Notes August 23, 2022 PID: [id number] Shannon Leija [address] [place] [address] Dear Ms. Leija, We are pleased to [...] report will be kept on file at [facility] as part of your permanent medical record and are available for your continuing care. Thank you for allowing us to help in meeting your health care needs. Sincerely, Dr. Hines Interpreting Radiologist [facility] (Normal over 40) documented in this encounter [facility] 08-22-2022 History of Presen t illness Narrative [...] 2022 9:45 AM documented in this encounter [facility] 08-19-2022 Miscellaneous Notes Patient has been identified [...] Kathia Swanson LPN documented in this encounter [facility] 08-01-2022 History of Presen t illness Narrative [...] PRESCRIPTION COMPOUNDED PRESCRIPTION Aspirin 81 mg Tab Prhvpjjvozkxw-Rsuxdndu-Mworpq (CENTRUM SILVER) tab Review of Systems CONSTITUTIONAL: [...] 2 diabetes mellitus without complication, unspecified whether tree sapper insulin use (HCC) - ICD9: 250.00, ICD10: [...] Darin Alonzo MD documented in this encounter [facility] 08-01-2022 Nurse Note Sees at [facility] due to see him next year documented in this encounter [facility] 07-28-2022 Miscellaneous Notes Order placed. Last screening on 08/19/21 so needs completed after this date. Please let patient know. Thank you Griselda Lema APRN.OLESYA Patient calls to request order for yearly mammogram be placed. Last mammogram completed 08/19/2021. Please call patient at [phone] to schedule once order is placed. Yoon Jones RN documented in this encounter [facility] 07-19-2022 Miscellaneous Notes Patient has been identified [...] Aliyah Clemens RN documented in this encounter [facility] 07-15-2022 History of Presen t illness Narrative [...] mg Tab Take 81 mg by mouth. Sttjwvspqgaqy-Lpogatzz-Qzznen (CENTRUM SILVER) tab Take 1 tablet by [...] IGE BLD - EOSINOPHIL ABS COUNT - [facility] 3. Gastroesophageal reflux disease without esophagitis - ICD9: 530.81, ICD10: K21.9 Symptoms controlled with PPI 4. Post-nasal drip - ICD9: 784.91, ICD10: R09.82 See #2. - IGE BLD - EOSINOPHIL ABS COUNT - [facility] Christy Williamson PA-C documented in this encounter [facility] 2022 Miscellaneous Notes Patient has been identified [...] Sarina Gomez LPN documented in this encounter [facility] 06-17-2022 Instructions Christy Williamson PA-C - 06/17/2022 1:51 PM EDT Prednisone 20 mg - take 2 tablets daily for 5 days. Check blood sugars while on Prednisone. Mucinex 1 tablet twice daily as needed to help thin secretions. documented in this encounter [facility] 06-17-2022 History of Presen t illness Narrative [facility] [place], 06/17/2022: Name: Shannon Leija : 1940 The [...] Christy Williamson PA-C documented in this encounter [facility] 06-15-2022 History of Presen t illness Narrative [...] 2022 8:32 AM documented in this encounter [facility] 06-15-2022 History of Presen t illness Narrative CC: Patient presents with: Recheck: 1 week cough follow up HPI Shannon Leija is a 81 year old female who presents today for follow up on cough. Was in urgent care 2 weeks ago and prescribed doxycyline. Saw Michelle RESERVATIONS MANAGER last week and given azithromycin, benzonatate, flonase, [...] mg Tab Take 81 mg by mouth. Mecjzwackxkxj-Ebnkdnca-Ibuqvn (CENTRUM SILVER) tab Take 1 tablet by [...] Griselda Lema APRN.CNP documented in this encounter [facility] 06-02-2022 Instructions Arsh Davalos APRN.CNP - 06/02/2022 [...] concerning to you. documented in this encounter [facility] 06-02-2022 History of Presen t illness Narrative Subjective HPI Nontoxic female presents urgent care chief complaint cough congestion. Duration of symptoms 1 week. Associated symptoms cough sinus pressure. Patient states her in [place] she did have a sore throat and [...] mg Tab Take 81 mg by mouth. Cxdcshcuringh-Poqrpruu-Tqvydm (CENTRUM SILVER) tab Take 1 tablet by [...] of care. This note was generated using [employer] software. It may contain errors in wording, punctuation, or spelling. Arsh Davaols APRN.OLESYA documented in this encounter [facility] 05-09-2022 History of Presen t illness Narrative . [facility] [place] Note Patient name: Shannon Leija PCP: Darin [...] until February when she was admitted to [facility] hospital with hypertensive urgency. No stroke. Started [...] DATE OF EXAM: Sep 29 2010 10:04AM [facility] 0349 - CT CHEST WO CONTRAST / [...] To be tested 2 times a day Sdwzcbhxwukph-Qmfohawe-Ukkqup (CENTRUM SILVER) ORAL Tab Take 1 tablet [...] -Conservative anti-reflux measures Pamela Aranda MD [facility] [place] documented in this encounter [facility] 04-22-2022 Miscellaneous Notes Patient calls and is asking if amlodipine can be sent to mail pharmacy for a 90 day supply with 3 refills? Order pended if agreeable. Sarina Bobby RN documented in this encounter [facility] 04-21-2022 Miscellaneous Notes Pt called and is notified of providers message. Pt voices understanding. Aliyah Clemens RN Prescription has been sent for new dosage. Thank you Griselda Lema APRN.OLESYA Natalie from [facility] pharmacy calling the Codeine-guaifenesin rx Dr Alonzo sent in for her is on manufacture back order. Asking for another rx to replace. They have Robitussin AC 10:100 per 5 ml in stock. Please send another rx patient has already been in to [facility] packer rx, knows about the issue, PCP is out this afternoon. Pending Robitussin rx if wanted needs completed. Please advise documented in this encounter [facility] 04-19-2022 Miscellaneous Notes Addended by: DARIN ALONZO on: 04/19/2022 05:00 PM Modules accepted: Orders documented in this encounter [facility] 04-19-2022 History of Presen t illness Narrative [...] PRESCRIPTION COMPOUNDED PRESCRIPTION Aspirin 81 mg Tab Nvtoplhotxwyh-Ganwxqda-Epsehh (CENTRUM SILVER) ORAL Tab Review of Systems [...] 2 diabetes mellitus without complication, unspecified whether tree sapper insulin use (HCC) - ICD9: 250.00, ICD10: E11.9 The patient has controlled diabetes mellitus, recently got it under control she is very proud of her self 3. Essential hypertension - ICD9: 401.9, ICD10: I10 Bp is well controlled. 4. Hyperlipidemia, unspecified hyperlipidemia type - ICD9: 272.4, ICD10: E78.5 Cont the statin medication. Darin Alonzo MD documented in this encounter [facility] 04-14-2022 Miscellaneous Notes Noted. Griselda Lema APRN.CNP [...] travel. No exposures. Protocols used: COUGH - LSZOGWX-FUUWF-HW documented in this encounter [facility] 04-11-2022 Miscellaneous Notes Patient has been identified [...] Kathia Swanson LPN documented in this encounter [facility] 03-23-2022 Miscellaneous Notes Patient returned call and [...] the next visit, documented in this encounter [facility] 03-21-2022 History of Presen t illness Narrative Reason for Visit Patient presents with: Established Patient: [facility] hospital follow up-dizziness/nausea Shannon Leija is a 81 year old female who presents here today for Above Complaints Health Maintenance DILATED RETINAL EXAM HPI 11 days ago patient was admitted at [facility]. She was taken to the ER [...] PRESCRIPTION COMPOUNDED PRESCRIPTION Aspirin 81 mg Tab Hhaiteuiuzrlq-Qktwsouq-Ibontf (CENTRUM SILVER) ORAL Tab Review of Systems [...] Darin Alonzo MD documented in this encounter [facility] 03-18-2022 Miscellaneous Notes Patient notified. I sent in an order for amlodipine to take instead of lisinopril. Number one side effect is edema so please let us know if this occurs. This will be re-evaluated at her appointment with Dr. Alonzo. Thank you Griselda Lema APRN.DISPOSAL PLANT OPERATOR Asking if ok to stop medication for [...] Sarina Bobby RN documented in this encounter [facility] 03-15-2022 Miscellaneous Notes Patient has been identified [...] Jean Kaba RN documented in this encounter [facility] 03-10-2022 History of Presen t illness Narrative [...] mg Tab Take 81 mg by mouth. Pftcpeivuepvh-Regpohid-Roeqdv (CENTRUM SILVER) ORAL Tab Take 1 tablet [...] her to the ER. Report called to [facility]. Nakul Patino MD documented in this encounter [facility] 12-10-2021 Miscellaneous Notes Patient has been identified [...] Sarina Gomez LPN documented in this encounter [facility] 08-11-2014 History of Past i llness Narrative [...] of this encounter (statuses as of 12/10/2021) [facility] of [facility] Narrative* Problem Noted [...] of this encounter (statuses as of 03/10/2022) [facility] Narrative* Problem Noted [...] of this encounter (statuses as of 03/18/2022) [facility] Narrative* Problem Noted [...] of this encounter (statuses as of 03/21/2022) [facility] Narrative* Problem Noted [...] of this encounter (statuses as of 03/23/2022) [facility] Narrative* Problem Noted [...] of this encounter (statuses as of 04/11/2022) [facility] Narrative* Problem Noted [...] of this encounter (statuses as of 04/13/2022) [facility] Narrative* Problem Noted [...] of this encounter (statuses as of 04/19/2022) [facility] Narrative* Problem Noted [...] of this encounter (statuses as of 04/21/2022) [facility] Narrative* Problem Noted [...] of this encounter (statuses as of 04/22/2022) [facility] Narrative* Problem Noted [...] of this encounter (statuses as of 05/09/2022) [facility] Narrative* Problem Noted [...] of this encounter (statuses as of 06/02/2022) [facility] Narrative* Problem Noted [...] of this encounter (statuses as of 06/15/2022) [facility] Narrative* Problem Noted [...] of this encounter (statuses as of 06/17/2022) [facility] Narrative* Problem Noted [...] of this encounter (statuses as of 2022) [facility] Narrative* Problem Noted [...] of this encounter (statuses as of 07/02/2022) [facility] Narrative* Problem Noted [...] of this encounter (statuses as of 07/15/2022) [facility] Narrative* Problem Noted Date Resolved Date DM (diabetes mellitus) 08/11/2014 6 Setele angioma 04/17/2013 02/16/2015 Capillary angioma 04/17/2013 02/16/2015 Solar lentigo 04/17/2013 02/16/2015 Actinic skin damage 04/17/2013 02/16/2015 Telangiectasia 04/17/2013 02/16/2015 Cutaneous skin tags 04/17/2013 02/16/2015 OVERWEIGHT 07/04/2005 02/16/2015 DIABETES MELLITUS TYPE II-UNCOMPL 07/04/2005 02/16/2015 Other and unspecified hyperlipidemia 07/04/2005 01/04/2016 Cough 07/04/2005 02/16/2015 Overview: chronic documented as of this encounter (statuses as of 07/20/2022) [facility] Narrative* Problem Noted [...] of this encounter (statuses as of 07/21/2022) [facility] Narrative* Problem Noted [...] of this encounter (statuses as of 08/01/2022) [facility] Narrative* Problem Noted [...] of this encounter (statuses as of 08/19/2022) [facility] Narrative* Problem Noted [...] of this encounter (statuses as of 08/25/2022) [facility] Narrative* Problem Noted [...] of this encounter (statuses as of 08/25/2022) [facility] Narrative* Problem Noted [...] of this encounter (statuses as of 09/21/2022) [facility] History of Past illness Narrative* Problem Noted [...] of this encounter (statuses as of 11/01/2022) [facility] Past [facility] Narrative* Problem Noted [...] of this encounter (statuses as of 11/07/2022) [facility] Narrative* Problem Noted [...] of this encounter (statuses as of 11/10/2022) [facility] Narrative* Problem Noted [...] of this encounter (statuses as of 11/25/2022) [facility] N[facility]* Problem Noted [...] of this encounter (statuses as of 11/25/2022) [facility] Narrative* Problem Noted [...] of this encounter (statuses as of 12/14/2022) [facility] N[facility]ative* Problem Noted [...] of this encounter (statuses as of 02/16/2023) [facility] N[facility]* Problem Noted [...] of this encounter (statuses as of 02/23/2023) [facility] N[facility]ative* Problem Noted [...] of this encounter (statuses as of 02/27/2023) [facility] N[facility]ative* Problem Noted [...] of this encounter (statuses as of 02/28/2023) [facility] N[facility]* Problem Noted [...] of this encounter (statuses as of 03/01/2023) [facility] N[facility]* Problem Noted [...] of this encounter (statuses as of 03/01/2023) [facility] N[facility]ative* Problem Noted [...] of this encounter (statuses as of 04/13/2023) [facility]* Problem Noted [...] of this encounter (statuses as of 04/18/2023) [facility] N[facility]ative* Problem Noted [...] of this encounter (statuses as of 05/19/2023) [facility] N[facility]ative* Problem Noted [...] of this encounter (statuses as of 05/19/2023) [facility] N[facility]ative* Problem Noted [...] of this encounter (statuses as of 05/30/2023) [facility] N[facility]* Problem Noted [...] of this encounter (statuses as of 07/07/2023) [facility] N[facility]ative* Problem Noted [...] of this encounter (statuses as of 07/15/2023) [facility] N[facility]* Problem Noted [...] of this encounter (statuses as of 07/16/2023) [facility] N[facility]* Problem Noted [...] of this encounter (statuses as of 08/01/2023) [facility] N[facility]ative* Problem Noted [...] of this encounter (statuses as of 08/15/2023) [facility] N[facility]* Problem Noted [...] of this encounter (statuses as of 09/01/2023) [facility] N[facility]* Problem Noted [...] of this encounter (statuses as of 10/18/2023) [facility] N[facility]ative* Problem Noted [...] of this encounter (statuses as of 10/30/2023) [facility] Narrative* Problem Noted [...] of this encounter (statuses as of 11/29/2023) [facility] N[facility]* Problem Noted [...] of this encounter (statuses as of 12/04/2023) [facility] Narrative* Problem Noted [...] of this encounter (statuses as of 12/06/2023) [facility] Narrative* Problem Noted [...] of this encounter (statuses as of 12/15/2023) [facility] Past [facility] Narrative* Problem Noted [...] of this encounter (statuses as of 12/18/2023) [facility] Narrative* Problem Noted [...] of this encounter (statuses as of 12/18/2023) [facility] Narrative* Problem Noted [...] of this encounter (statuses as of 12/29/2023) [facility]No [facility]* Diagnosis Dizziness- Primary Dizziness and giddiness Headache, unspecified headache type Nausea Nausea alone documented in this encounter [facility] note* Diagnosis Onset Date Resolution Status Carotid artery stenosis acut e Nausea acute Vertigo acute [facility] Work Phone: evaluation note* Diagnosis Acute cough- Primary Controlled type 2 diabetes mellitus without complication, without long-term current use of insulin (HCC) Hospital discharge follow-up Other follow-up examination Vertigo Dizziness and giddiness documented in this encounter [facility] note* Diagnosis Chronic cough- Primary Cough Controlled type 2 diabetes mellitus without complication, unspecified whether tree sapper insulin use (HCC) Essential hypertension Unspecified essential hypertension Hyperlipidemia, unspecified hyperlipidemia type documented in this encounter [facility] note* Diagnosis Chronic cough- Primary Cough documented in this encounter [facility] note* Diagnosis Follicular bronchiolitis (HCC)- Primary Other chronic bronchitis Post-nasal drip Postnasal drip Gastroesophageal reflux disease without esophagitis Esophageal reflux documented in this encounter [facility] note* Diagnosis Suspected COVID-19 virus infection- Primary Sinobronchitis Unspecified sinusitis (chronic) documented in this encounter [facility] note* Diagnosis Acute cough- Primary Post-nasal drip Postnasal drip documented in this encounter [facility] note* Diagnosis Acute cough- Primary Follicular bronchiolitis (HCC) Other chronic bronchitis Gastroesophageal reflux disease without esophagitis Esophageal reflux documented in this encounter [facility] note* Diagnosis Follicular bronchiolitis (HCC)- Primary Other chronic bronchitis Cough, unspecified type Gastroesophageal reflux disease without esophagitis Esophageal reflux Post-nasal drip Postnasal drip documented in this encounter [facility] note* Diagnosis Controlled type 2 diabetes mellitus without complication, unspecified whether tree sapper insulin use (HCC)- Primary Acquired hypothyroidism Unspecified hypothyroidism Essential hypertension Unspecified essential hypertension Hyperlipidemia, unspecified hyperlipidemia type documented in this encounter [facility] note* Diagnosis Encounter for screening mammogram for malignant neoplasm of breast- Primary Other screening mammogram documented in this encounter [facility] note* Diagnosis Essential hypertension- Primary Unspecified essential hypertension Hyperlipidemia, unspecified hyperlipidemia type Acquired hypothyroidism Unspecified hypothyroidism Controlled type 2 diabetes mellitus without complication, unspecified whether retirement insulin use (HCC) Follicular bronchiolitis (HCC) Other chronic bronchitis [facility]* Diagnosis Hyperlipidemia, unspecified hyperlipidemia type documented in this encounter [facility] note* Diagnosis Follicular bronchiolitis (HCC) Other chronic bronchitis documented in this encounter [facility] note* Diagnosis Follicular bronchiolitis (HCC)- Primary Other chronic bronchitis Post-nasal drip Postnasal drip Gastroesophageal reflux disease, unspecified whether esophagitis present documented in this encounter [facility] note* Diagnosis Essential hypertension- Primary Unspecified essential hypertension Uncontrolled hypertension Unspecified essential hypertension documented in this encounter [facility] note* Diagnosis Essential hypertension- Primary Unspecified essential hypertension Tenderness of right hip Pain in joint, pelvic region and thigh Right thigh pain Pain in limb Right ankle instability Other joint derangement, not elsewhere classified, ankle and foot documented in this encounter [facility] note* Diagnosis Controlled type 2 diabetes mellitus without complication, unspecified whether tree sapper insulin use (HCC)- Primary Essential hypertension Unspecified essential hypertension Hyperlipidemia, unspecified hyperlipidemia type Acquired hypothyroidism Unspecified hypothyroidism documented in this encounter [facility] note* Diagnosis Follicular bronchiolitis- Primary Other chronic bronchitis Upper airway cough syndrome Cough documented [facility] this [facility]* Diagnosis Encounter for screening mammogram for malignant neoplasm of breast Other screening mammogram documented in this encounter [facility] note* Diagnosis Encounter for screening mammogram for malignant neoplasm of breast- Primary Other screening mammogram documented in this encounter [facility] note* Diagnosis Follicular bronchiolitis (HCC)- Primary Other chronic bronchitis Chronic cough Cough Postnasal drip documented [facility] this [facility]* Diagnosis Hyperlipidemia, unspecified hyperlipidemia type documented in this encounter [facility] note* Diagnosis Follicular bronchiolitis (HCC) Other chronic bronchitis Chronic cough Cough documented [facility] this [facility]* Diagnosis Controlled type 2 diabetes mellitus without complication, unspecified whether tree sapper insulin use (HCC)- Primary Essential hypertension Unspecified essential hypertension Acquired hypothyroidism Unspecified hypothyroidism Dizziness Dizziness and giddiness documented in this encounter [facility] note* Diagnosis Medication management- Primary Encounter for long-term (current) use of other medications Dizziness Dizziness and giddiness Acquired hypothyroidism Unspecified hypothyroidism documented in this encounter [facility] note* Diagnosis Elbow wound, left, initial encounter- Primary documented in this encounter [facility] note* Diagnosis Controlled type 2 diabetes mellitus without complication, unspecified whether tree sapper insulin use (HCC)- Primary Hyperlipidemia, unspecified hyperlipidemia type Essential hypertension Unspecified essential hypertension Gastroesophageal reflux disease without esophagitis Esophageal reflux Grief Adjustment disorder with depressed mood Acquired hypothyroidism Unspecified hypothyroidism Follicular bronchiolitis (HCC) Other chronic bronchitis documented in this encounter [facility] note* Diagnosis Knee injury, right, initial encounter- Primary Controlled type 2 diabetes mellitus without complication, unspecified tree sapper insulin use status Essential hypertension Unspecified essential hypertension Acquired hypothyroidism Unspecified hypothyroidism Controlled type 2 diabetes mellitus without complication, unspecified retirement insulin use status- Primary Essential hypertension Unspecified essential hypertension Acquired hypothyroidism Unspecified hypothyroidism Cough Bronchitis Bronchitis, not specified as acute or chronic Controlled type 2 diabetes mellitus without complication, unspecified whether tree sapper insulin use (HCC)- Primary documented in this encounter [facility] note* Diagnosis Knee injury, right, initial encounter- Primary Controlled type 2 diabetes mellitus without complication, unspecified tree sapper insulin use status Essential hypertension Unspecified essential hypertension Acquired hypothyroidism Unspecified hypothyroidism Controlled type 2 diabetes mellitus without complication, unspecified tree sapper insulin use status- Primary Essential hypertension Unspecified essential hypertension Acquired hypothyroidism Unspecified hypothyroidism Cough Bronchitis Bronchitis, not specified as acute or chronic Tenderness of right hip Pain in joint, pelvic region and thigh Right thigh pain Pain in limb Right ankle instability Other joint derangement, not elsewhere classified, ankle and foot documented in this encounter [facility] note* Diagnosis Knee injury, right, initial encounter- Primary Controlled type 2 diabetes mellitus without complication, unspecified tree sapper insulin use status Essential hypertension Unspecified essential hypertension Acquired hypothyroidism Unspecified hypothyroidism Controlled type 2 diabetes mellitus without complication, unspecified retirement insulin use status- Primary Essential hypertension Unspecified essential hypertension Acquired hypothyroidism Unspecified hypothyroidism Cough Bronchitis Bronchitis, not specified as acute or chronic Follicular bronchiolitis (HCC) Other chronic bronchitis documented in this encounter [facility] note* Diagnosis Knee injury, right, initial encounter- Primary Controlled type 2 diabetes mellitus without complication, unspecified tree sapper insulin use status Essential hypertension Unspecified essential hypertension Acquired hypothyroidism Unspecified hypothyroidism Controlled type 2 diabetes mellitus without complication, unspecified retirement insulin use status- Primary Essential hypertension Unspecified essential hypertension Acquired hypothyroidism Unspecified hypothyroidism Cough Bronchitis Bronchitis, not specified as acute or chronic Acute cough documented in this encounter [facility] note* Diagnosis Knee injury, right, initial encounter- Primary Controlled type 2 diabetes mellitus without complication, unspecified retirement insulin use status Essential hypertension Unspecified essential hypertension Acquired hypothyroidism Unspecified hypothyroidism Controlled type 2 diabetes mellitus without complication, unspecified tree sapper insulin use status- Primary Essential hypertension Unspecified essential hypertension Acquired hypothyroidism Unspecified hypothyroidism Cough Bronchitis Bronchitis, not specified as acute or chronic Chronic cough- Primary Cough Follicular bronchiolitis (HCC) Other chronic bronchitis Pulmonary air trapping PND (post-nasal drip) Postnasal drip Cardiac murmur Undiagnosed cardiac murmurs documented in this encounter [facility]* Diagnosis Knee injury, right, initial encounter- Primary Controlled type 2 diabetes mellitus without complication, unspecified tree sapper insulin use status Essential hypertension Unspecified essential hypertension Acquired hypothyroidism Unspecified hypothyroidism Controlled type 2 diabetes mellitus without complication, unspecified tree sapper insulin use status- Primary Essential hypertension Unspecified essential hypertension Acquired hypothyroidism Unspecified hypothyroidism Cough Bronchitis Bronchitis, not specified as acute or chronic Controlled type 2 diabetes mellitus without complication, unspecified whether retirement insulin use (HCC)- Primary Essential hypertension Unspecified essential hypertension Hyperlipidemia, unspecified hyperlipidemia type Acquired hypothyroidism Unspecified hypothyroidism Medication management Encounter for long-term (current) use of other medications documented in this encounter [facility] note* Diagnosis Knee injury, right, initial encounter- Primary Controlled type 2 diabetes mellitus without complication, unspecified retirement insulin use status Essential hypertension Unspecified essential hypertension Acquired hypothyroidism Unspecified hypothyroidism Controlled type 2 diabetes mellitus without complication, unspecified retirement insulin use status- Primary Essential hypertension Unspecified essential hypertension Acquired hypothyroidism Unspecified hypothyroidism Cough Bronchitis Bronchitis, not specified as acute or chronic Acquired hypothyroidism- Primary Unspecified hypothyroidism Medication management Encounter for long-term (current) use of other medications documented in this encounter [facility] note* Diagnosis Knee injury, right, initial encounter- Primary Controlled type 2 diabetes mellitus without complication, unspecified retirement insulin use status Essential hypertension Unspecified essential hypertension Acquired hypothyroidism Unspecified hypothyroidism Controlled type 2 diabetes mellitus without complication, unspecified tree sapper insulin use status- Primary Essential hypertension Unspecified essential hypertension Acquired hypothyroidism Unspecified hypothyroidism Cough Bronchitis Bronchitis, not specified as acute or chronic Encounter for screening mammogram for breast cancer- Primary documented in this encounter [facility] note* Diagnosis Knee injury, right, initial encounter- Primary Controlled type 2 diabetes mellitus without complication, unspecified retirement insulin use status Essential hypertension Unspecified essential hypertension Acquired hypothyroidism Unspecified hypothyroidism Controlled type 2 diabetes mellitus without complication, unspecified tree sapper insulin use status- Primary Essential hypertension Unspecified essential hypertension Acquired hypothyroidism Unspecified hypothyroidism Cough Bronchitis Bronchitis, not specified as acute or chronic Encounter for screening mammogram for breast cancer documented in this encounter [facility] note* Diagnosis Knee injury, right, initial encounter- Primary Controlled type 2 diabetes mellitus without complication, unspecified retirement insulin use status Essential hypertension Unspecified essential hypertension Acquired hypothyroidism Unspecified hypothyroidism Controlled type 2 diabetes mellitus without complication, unspecified tree sapper insulin use status- Primary Essential hypertension Unspecified essential hypertension Acquired hypothyroidism Unspecified hypothyroidism Cough Bronchitis Bronchitis, not specified as acute or chronic Controlled type 2 diabetes mellitus without complication, unspecified whether retirement insulin use (HCC)- Primary Essential hypertension Unspecified essential hypertension Grief Adjustment disorder with depressed mood Acquired hypothyroidism Unspecified hypothyroidism documented in this encounter [facility] note* Diagnosis Knee injury, right, initial encounter- Primary Controlled type 2 diabetes mellitus without complication, unspecified retirement insulin use status Essential hypertension Unspecified essential hypertension Acquired hypothyroidism Unspecified hypothyroidism Controlled type 2 diabetes mellitus without complication, unspecified tree sapper insulin use status- Primary Essential hypertension Unspecified essential hypertension Acquired hypothyroidism Unspecified hypothyroidism Cough Bronchitis Bronchitis, not specified as acute or chronic Chronic cough- Primary Cough Follicular bronchiolitis (HCC) Other chronic bronchitis Pulmonary air trapping Post-nasal drip Postnasal drip Gastroesophageal reflux disease without esophagitis Esophageal reflux documented in this encounter [facility] note* Diagnosis Knee injury, right, initial encounter- Primary Controlled type 2 diabetes mellitus without complication, unspecified retirement insulin use status Essential hypertension Unspecified essential hypertension Acquired hypothyroidism Unspecified hypothyroidism Controlled type 2 diabetes mellitus without complication, unspecified retirement insulin use status- Primary Essential hypertension Unspecified essential hypertension Acquired hypothyroidism Unspecified hypothyroidism Cough Bronchitis Bronchitis, not specified as acute or chronic Essential hypertension- Primary Unspecified essential hypertension Controlled type 2 diabetes mellitus without complication, unspecified whether tree sapper insulin use (HCC) Muscle cramps Cramp of limb Insomnia, unspecified type Anxiety and depression Dysthymic disorder Grief Adjustment disorder with depressed mood Acquired hypothyroidism Unspecified hypothyroidism Gastroesophageal reflux disease without esophagitis Esophageal reflux Hyperlipidemia, unspecified hyperlipidemia type Abnormal color of lips Diseases of lips documented in this encounter [facility] note* Diagnosis Knee injury, right, initial encounter- Primary Controlled type 2 diabetes mellitus without complication, unspecified retirement insulin use status Essential hypertension Unspecified essential hypertension Acquired hypothyroidism Unspecified hypothyroidism Controlled type 2 diabetes mellitus without complication, unspecified retirement insulin use status- Primary Essential hypertension Unspecified essential hypertension Acquired hypothyroidism Unspecified hypothyroidism Cough Bronchitis Bronchitis, not specified as acute or chronic Hypomagnesemia- Primary Disorders of magnesium metabolism documented in this encounter [facility] note* Diagnosis Knee injury, right, initial encounter- Primary Controlled type 2 diabetes mellitus without complication, unspecified tree sapper insulin use status Essential hypertension Unspecified essential hypertension Acquired hypothyroidism Unspecified hypothyroidism Controlled type 2 diabetes mellitus without complication, unspecified retirement insulin use status- Primary Essential hypertension Unspecified essential hypertension Acquired hypothyroidism Unspecified hypothyroidism Cough Bronchitis Bronchitis, not specified as acute or chronic Muscle cramps- Primary Cramp of limb Hypomagnesemia Disorders of magnesium metabolism Gastroesophageal reflux disease without esophagitis Esophageal reflux Acute cough Insomnia, unspecified type documented in this encounter [facility] note* Diagnosis Knee injury, right, initial encounter- Primary Controlled type 2 diabetes mellitus without complication, unspecified retirement insulin use status Essential hypertension Unspecified essential hypertension Acquired hypothyroidism Unspecified hypothyroidism Controlled type 2 diabetes mellitus without complication, unspecified tree sapper insulin use status- Primary Essential hypertension Unspecified [...] 2 diabetes mellitus without complication, unspecified whether tree sapper insulin use (HCC) documented in this encounter [facility] note* Diagnosis Onset Date Resolution Status Admit Date Bilateral carotid artery disease acu te April 13, 2025 1:15am Gait difficulty acute April 1:15am Hyponatremia acute April 13, 2025 1:15am Nausea and vomiting acute Augus t 2024 1:15am Overweight (BMI 25.0-29.9) acute April 13, 2025 1:15am Vertigo acute April 13 1:15am [facility] Work Phone: Reason for referral (narrative)* Outpatient Procedure (Routine) - Authorized Specialty Diagnoses / Procedures Referred By Gilbert t Referred To [facility] Diagnoses Follicular bronchiolitis (HCC) Procedures SPIROMETRY WITH DILATOR IF OBSTRUCTED BRNCDILAT RSPSE SPMTRY PRE&POST-BRNCDILAT Pamela Meade MD [address] [place] [address] Respiratory [place] [address] [place] [address] Referral ID Status Reason Start Date Expiration Date Visits Requested Visits Authorized [id number] Authorized Auto-Generat ed Referral 05/09/2022 06/08/2023 1 1 [facility] for referral (narrative)* Diagnostic Procedure Only (Routine) - Closed Specialty Diagnoses / Procedures Referred By Contac t Referred To Contact [facility] Diagnoses Encounter for screening mammogram for malignant neoplasm of breast Procedures MADISON SCREENING SCREENING MAMMOGRAPHY BI 2-VIEW BREAST INC CAD Griselda Lema APRN.DISPOSAL PLANT OPERATOR [address] [place] [address] [facility] [address] [place] [address] Referral ID Status Reason Start Date Expiration Date V isits Requested Visits Authorized [id number] Closed Auto-Generate d Referral 07/28/2022 08/27/2023 1 1 [facility] for referral (narrative)* Diagnostic Procedure Only (Routine) - Closed Specialty Diagnoses / Procedures Referred By Contac t Referred To Contact [facility] Diagnoses Encounter for screening mammogram for malignant neoplasm of breast Procedures MADISON SCREENING SCREENING MAMMOGRAPHY BI 2-VIEW BREAST INC CAD Griselda Lema APRN.DISPOSAL PLANT OPERATOR [address] [place] [address] [facility] [address] [place] [address] Referral ID Status Reason Start Date Expiration Date V isits Requested Visits Authorized [id number] Closed Auto-Generate d Referral 07/28/2022 08/27/2023 1 1 [facility] for referral (narrative)* Diagnostic Procedure Only (Routine) - Pending Review Specialty Diagnoses / Procedures Referred By Contac t Referred To Contact [facility] Diagnoses Encounter for screening mammogram for malignant neoplasm of breast Procedures MADISON SCREENING SCREENING MAMMOGRAPHY BI 2-VIEW BREAST INC CAD Bouchra Lema APRN.DISPOSAL PLANT OPERATOR [address] [place] [address] [facility] [address] [place] [address] Referral ID Status Reason Start Date Expiration Date Visits Requested Visits Authorized [id number] Pending Review Auto-Generat ed Referral 08/30/2024 1 1 [facility] for referral (narrative)* Diagnostic Procedure Only (Routine) - Closed Specialty Diagnoses / Procedures Referred By Zainabac t Referred To Contact X[facility] IMAGING Diagnoses Right ankle instability Procedures XR ANKLE GENERAL 3V AP/LAT/OBL RIGHT RADEX ANKLE COMPLETE MINIMUM 3 VIEWS Griselda Lema APRN.DISPOSAL PLANT OPERATOR [address] [place] [address] [place] [address] Referral ID Status Reason Start Date Expiration Date V isits Requested Visits Authorized [id number] Closed Auto-Generate d Referral 04/10/2023 05/09/2024 1 1 * Diagnostic Procedure Only (Routine) - Closed Specialty Diagnoses / Procedures Referred By Contac t Referred To Contact XR IMAGING Diagnoses Tenderness of right hip Right thigh pain Procedures XR HIP GENERAL 3V PELV/AP/LAT RIGHT RADEX HIP UNILATERAL WITH PELVIS 2-3 VIEWS Griselda Lema APRN.DISPOSAL PLANT OPERATOR [address] [place] [address] [place] [address] Referral ID Status Reason Start Date Expiration Date V isits Requested Visits Authorized [id number] Closed Auto-Generate d Referral 04/10/2023 05/09/2024 1 1 [facility] for referral (narrative)* Diagnostic Procedure Only (Routine) - Authorized Specialty Diagnoses / Procedures Referred By Gilbert wood Referred To Contact [facility] Diagnoses Encounter for screening mammogram for breast cancer Procedures MADISON SCREENING SCREENING MAMMOGRAPHY BI 2-VIEW BREAST INC Darin Bazzi MD [address] [place] [address] [facility] [address] [place] [address] Referral ID Status Reason Start Date Expiration Date Visits Requested Visits Authorized [id number] Authorized Auto-Generat ed Referral 09/05/2025 1 1 [facility] for referral (narrative)* Diagnostic Procedure Only (Routine) - Closed Specialty Diagnoses / Procedures Referred By Gilbert wood Referred To Contact [facility] Diagnoses Encounter for screening mammogram for breast cancer Procedures MADISON SCREENING SCREENING MAMMOGRAPHY BI 2-VIEW BREAST INC Darin Bazzi MD [address] [place] [address] [facility] [address] [place] [address] Referral ID Status Reason Start Date Expiration Date V isits Requested Visits Authorized [id number] Closed Auto-Generate d Referral 08/06/2024 09/05/2025 1 1 [facility] for referral (narrative)No reason for referral information [facility]WMer[facility] Work Phone: Re[facility] for visit Narrative* Diagnostic Procedure Only (Routine) - Closed Specialty Diagnoses / Procedures Referred By Gilbert wood Referred To Contact [facility] Diagnoses Encounter for screening mammogram for malignant neoplasm of breast Procedures MADISON SCREENING SCREENING MAMMOGRAPHY BI 2-VIEW BREAST INC CAD Griselda Lema APRN.CNP [address] [place] [address] [facility] [address] [place] [address] Referral ID Status Reason Start Date Expiration Date V isits Requested Visits Authorized [id number] Closed Auto-Generate d Referral 07/28/2022 08/27/2023 1 1 [facility] for visit Narrative* Diagnostic Procedure Only (Routine) - Closed Specialty Diagnoses / Procedures Referred By Contac t Referred To Contact XR IMAGING Diagnoses Right ankle instability Procedures XR ANKLE GENERAL 3V AP/LAT/OBL RIGHT RADEX ANKLE COMPLETE MINIMUM 3 VIEWS Griselda Lema APRN.CNP [address] [place] [address] [place] [address] Referral ID Status Reason Start Date Expiration Date V isits Requested Visits Authorized [id number] Closed Auto-Generate d Referral 04/10/2023 05/09/2024 1 [facility] Diagnostic Procedure Only (Routine) - Closed Specialty Diagnoses / Procedures Referred By Contac t Referred To Contact [facility] Diagnoses Encounter for screening mammogram for breast cancer Procedures MADISON SCREENING SCREENING MAMMOGRAPHY BI 2-VIEW BREAST INC CAD Darin Alonzo MD [address] [place] [address] [facility] [address] [place] [address] Referral ID Status Reason Start Date Expiration Date V isits Requested Visits Authorized [id number] Closed Auto-Generate d Referral 08/06/2024 09/05/2025 1 1 [facility] Summary Purpose Family History Relationship Condition Age at Onset Recorded Date/T farhad Not Specified Diabetes mellitus Unknown Hypertension Unknown Advance Directives Documents on File Type Date Recorded 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 Advance Directive(s) 10/27/2017 10:28 AM Advance Directive(s) 10/19/2017 8:19 AM Advance Directive(s) 06/06/2007 12:00 AM Advance Directive Response Recorded Date/ Time Living Will Yes March 10, 2022 3:42pm Power of Qm Consultant Yes March 10 3:42pm Name of Medical Power of Qm Consultant Ambrocio- March 10, 2022 3:42pm Advance Directive Response Recorded Date/ Time Name of Medical Power of Qm Consultant Ambrocio Leija March 10, 2022 5:11pm Living Will Yes March 10, 2022 5:11pm Power of Qm Consultant Yes March 10 5:11pm Documents on File Type Date Recorded 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 No April 12, 2025 10:13pm Chief Complaint [...] ORTHOPAEDICS OFFICE/OUTPATIENT NEW HIGH MDM 60-74 MINUTES Griselda Lema APRN.DISPOSAL PLANT OPERATOR [address] [place] [address] Referral ID Status Reason Start Date Expiration Date Visits Requested Visits Authorized [id number] Authorized PCP Requested Referral 04/10/2023 04/09/2024 1 1 Specialty Diagnoses / Procedures Referred By Contac t Referred To Contact XR IMAGING Diagnoses Right ankle instability Procedures XR ANKLE GENERAL 3V AP/LAT/OBL RIGHT RADEX ANKLE COMPLETE MINIMUM 3 VIEWS Griselda Lema APRN.DISPOSAL PLANT OPERATOR [address] [place] [address] X[facility] Imaging Referral ID Status Reason Start Date Expiration Date V isits Requested Visits Authorized [id number] Closed Auto-Generate d Referral 04/10/2023 05/09/2024 1 1 Specialty Diagnoses / Procedures Referred By Contac t Referred To Contact XR IMAGING Diagnoses Tenderness of right hip Right thigh pain Procedures XR HIP GENERAL 3V PELV/AP/LAT RIGHT RADEX HIP UNILATERAL WITH PELVIS 2-3 VIEWS Griselda Lema APRN.DISPOSAL PLANT OPERATOR [address] [place] [address] X[facility] Imaging Referral ID Status Reason Start Date Expiration Date V isits Requested Visits Authorized [id number] Closed Auto-Generate d Referral 04/10/2023 05/09/2024 1 1 Specialty Diagnoses / Procedures Referred By Contac t Referred To Contact CT IMAGING Diagnoses 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) Chronic cough Procedures CT CHEST WO IVCON DIAGNOSTIC COMPUTED TOMOGRAPHY THORAX W/O Pamela Riddle MD [address] [place] [address] [place] [address] Referral ID Status Reason Start Date Expiration Date Visits Requested Visits Authorized [id number] Authorized Auto-Generat ed Referral 11/28/2023 12/27/2024 1 1 Additional Source Comments INFORMATION SOURCE (unrecogn ized section and content) DATE CREATED AUTHOR 03/15/[address] [facility] DATE CREATED AUTHOR AUTHOR'S ORGANIZ ATION 11/07/2024 [facility] DATE CREATED AUTHOR AUTHOR'S ORGANIZ ATION 04/13/2025 [facility] Source Comments (unrecognize d section and content) In the event this informatio n is protected by the Federal Confidentiality of Alcohol and Drug Abuse Patient Records regulations: The Federal rules restrict any use of the information to criminally investigate or prosecute any alcohol or drug abuse patient.[facility] the event this information is protected by the Federal Confidentiality of Alcohol and Drug Abuse Patient Records regulations: The Federal rules restrict any use of the information to criminally investigate or prosecute any alcohol or drug abuse patient.[facility] the event this information is protected by the Federal Confidentiality of Alcohol and Drug Abuse Patient Records regulations: The Federal rules restrict any use of the information to criminally investigate or prosecute any alcohol or drug abuse patient.[facility] the event this information is protected by the Federal Confidentiality of Alcohol and Drug Abuse Patient Records regulations: The Federal rules restrict any use of the information to criminally investigate or prosecute any alcohol or drug abuse patient.[facility] the event this information is protected by the Federal Confidentiality of Alcohol and Drug Abuse Patient Records regulations: The Federal rules restrict any use of the information to criminally investigate or prosecute any alcohol or drug abuse patient.[facility] Center[facility] the event this information is protected by the Federal Confidentiality of Alcohol and Drug Abuse Patient Records regulations: The Federal rules restrict any use of the information to criminally investigate or prosecute any alcohol or drug abuse patient.[facility] Center[facility] the event this information is protected by the Federal Confidentiality of Alcohol and Drug Abuse Patient Records regulations: The Federal rules restrict any use of the information to criminally investigate or prosecute any alcohol or drug abuse patient.[facility] Center[facility] the event this information is protected by the Federal Confidentiality of Alcohol and Drug Abuse Patient Records regulations: The Federal rules restrict any use of the information to criminally investigate or prosecute any alcohol or drug abuse patient.[facility] CenterIn the event this information is protected by the Federal Confidentiality of Alcohol and Drug Abuse Patient Records regulations: The Federal rules restrict any use of the information to criminally investigate or prosecute any alcohol or drug abuse patient.[facility] CenterIn the event this information is protected by the Federal Confidentiality of Alcohol and Drug Abuse Patient Records regulations: The Federal rules restrict any use of the information to criminally investigate or prosecute any alcohol or drug abuse patient.[facility] CenterIn the event this information is protected by the Federal Confidentiality of Alcohol and Drug Abuse Patient Records regulations: The Federal rules restrict any use of the information to criminally investigate or prosecute any alcohol or drug abuse patient.[facility] CenterIn the event this information is protected by the Federal Confidentiality of Alcohol and Drug Abuse Patient Records regulations: The Federal rules restrict any use of the information to criminally investigate or prosecute any alcohol or drug abuse patient.[facility] CenterIn the event this information is protected by the Federal Confidentiality of Alcohol and Drug Abuse Patient Records regulations: The Federal rules restrict any use of the information to criminally investigate or prosecute any alcohol or drug abuse patient.[facility] CenterIn the event this information is protected by the Federal Confidentiality of Alcohol and Drug Abuse Patient Records regulations: The Federal rules restrict any use of the information to criminally investigate or prosecute any alcohol or drug abuse patient.[facility] CenterIn the event this information is protected by the Federal Confidentiality of Alcohol and Drug Abuse Patient Records regulations: The Federal rules restrict any use of the information to criminally investigate or prosecute any alcohol or drug abuse patient.[facility] CenterIn the event this information is protected by the Federal Confidentiality of Alcohol and Drug Abuse Patient Records regulations: The Federal rules restrict any use of the information to criminally investigate or prosecute any alcohol or drug abuse patient.[facility] CenterIn the event this information is protected by the Federal Confidentiality of Alcohol and Drug Abuse Patient Records regulations: The Federal rules restrict any use of the information to criminally investigate or prosecute any alcohol or drug abuse patient.[facility] CenterIn the event this information is protected by the Federal Confidentiality of Alcohol and Drug Abuse Patient Records regulations: The Federal rules restrict any use of the information to criminally investigate or prosecute any alcohol or drug abuse patient.[facility] CenterIn the event this information is protected by the Federal Confidentiality of Alcohol and Drug Abuse Patient Records regulations: The Federal rules restrict any use of the information to criminally investigate or prosecute any alcohol or drug abuse patient.[facility] CenterIn the event this information is protected by the Federal Confidentiality of Alcohol and Drug Abuse Patient Records regulations: The Federal rules restrict any use of the information to criminally investigate or prosecute any alcohol or drug abuse patient.[facility] CenterIn the event this information is protected by the Federal Confidentiality of Alcohol and Drug Abuse Patient Records regulations: The Federal rules restrict any use of the information to criminally investigate or prosecute any alcohol or drug abuse patient.[facility] CenterIn the event this information is protected by the Federal Confidentiality of Alcohol and Drug Abuse Patient Records regulations: The Federal rules restrict any use of the information to criminally investigate or prosecute any alcohol or drug abuse patient.[facility] CenterIn the event this information is protected by the Federal Confidentiality of Alcohol and Drug Abuse Patient Records regulations: The Federal rules restrict any use of the information to criminally investigate or prosecute any alcohol or drug abuse patient.[facility] CenterIn the event this information is protected by the Federal Confidentiality of Alcohol and Drug Abuse Patient Records regulations: The Federal rules restrict any use of the information to criminally investigate or prosecute any alcohol or drug abuse patient.[facility] CenterIn the event this information is protected by the Federal Confidentiality of Alcohol and Drug Abuse Patient Records regulations: The Federal rules restrict any use of the information to criminally investigate or prosecute any alcohol or drug abuse patient.[facility] CenterIn the event this information is protected by the Federal Confidentiality of Alcohol and Drug Abuse Patient Records regulations: The Federal rules restrict any use of the information to criminally investigate or prosecute any alcohol or drug abuse patient.[facility] CenterIn the event this information is protected by the Federal Confidentiality of Alcohol and Drug Abuse Patient Records regulations: The Federal rules restrict any use of the information to criminally investigate or prosecute any alcohol or drug abuse patient.[facility] CenterIn the event this information is protected by the Federal Confidentiality of Alcohol and Drug Abuse Patient Records regulations: The Federal rules restrict any use of the information to criminally investigate or prosecute any alcohol or drug abuse patient.[facility] CenterIn the event this information is protected by the Federal Confidentiality of Alcohol and Drug Abuse Patient Records regulations: The Federal rules restrict any use of the information to criminally investigate or prosecute any alcohol or drug abuse patient.[facility] CenterIn the event this information is protected by the Federal Confidentiality of Alcohol and Drug Abuse Patient Records regulations: The Federal rules restrict any use of the information to criminally investigate or prosecute any alcohol or drug abuse patient.[facility] CenterIn the event this information is protected by the Federal Confidentiality of Alcohol and Drug Abuse Patient Records regulations: The Federal rules restrict any use of the information to criminally investigate or prosecute any alcohol or drug abuse patient.[facility] CenterIn the event this information is protected by the Federal Confidentiality of Alcohol and Drug Abuse Patient Records regulations: The Federal rules restrict any use of the information to criminally investigate or prosecute any alcohol or drug abuse patient.[facility] CenterIn the event this information is protected by the Federal Confidentiality of Alcohol and Drug Abuse Patient Records regulations: The Federal rules restrict any use of the information to criminally investigate or prosecute any alcohol or drug abuse patient.[facility] CenterIn the event this information is protected by the Federal Confidentiality of Alcohol and Drug Abuse Patient Records regulations: The Federal rules restrict any use of the information to criminally investigate or prosecute any alcohol or drug abuse patient.[facility] CenterIn the event this information is protected by the Federal Confidentiality of Alcohol and Drug Abuse Patient Records regulations: The Federal rules restrict any use of the information to criminally investigate or prosecute any alcohol or drug abuse patient.[facility] CenterIn the event this information is protected by the Federal Confidentiality of Alcohol and Drug Abuse Patient Records regulations: The Federal rules restrict any use of the information to criminally investigate or prosecute any alcohol or drug abuse patient.[facility] CenterIn the event this information is protected by the Federal Confidentiality of Alcohol and Drug Abuse Patient Records regulations: The Federal rules restrict any use of the information to criminally investigate or prosecute any alcohol or drug abuse patient.[facility] the event this information is protected by the Federal Confidentiality of Alcohol and Drug Abuse Patient Records regulations: The Federal rules restrict any use of the information to criminally investigate or prosecute any alcohol or drug abuse patient.[facility] CenterIn the event this information is protected by the Federal Confidentiality of Alcohol and Drug Abuse Patient Records regulations: The Federal rules restrict any use of the information to criminally investigate or prosecute any alcohol or drug abuse patient.[facility] CenterIn the event this information is protected by the Federal Confidentiality of Alcohol and Drug Abuse Patient Records regulations: The Federal rules restrict any use of the information to criminally investigate or prosecute any alcohol or drug abuse patient.[facility]In the event this information is protected by the Federal Confidentiality of Alcohol and Drug Abuse Patient Records regulations: The Federal rules restrict any use of the information to criminally investigate or prosecute any alcohol or drug abuse patient.[facility] CenterIn the event this information is protected by the Federal Confidentiality of Alcohol and Drug Abuse Patient Records regulations: The Federal rules restrict any use of the information to criminally investigate or prosecute any alcohol or drug abuse patient.[facility] CenterIn the event this information is protected by the Federal Confidentiality of Alcohol and Drug Abuse Patient Records regulations: The Federal rules restrict any use of the information to criminally investigate or prosecute any alcohol or drug abuse patient.[facility] CenterIn the event this information is protected by the Federal Confidentiality of Alcohol and Drug Abuse Patient Records regulations: The Federal rules restrict any use of the information to criminally investigate or prosecute any alcohol or drug abuse patient.[facility] CenterIn the event this information is protected by the Federal Confidentiality of Alcohol and Drug Abuse Patient Records regulations: The Federal rules restrict any use of the information to criminally investigate or prosecute any alcohol or drug abuse patient.[facility] CenterIn the event this information is protected by the Federal Confidentiality of Alcohol and Drug Abuse Patient Records regulations: The Federal rules restrict any use of the information to criminally investigate or prosecute any alcohol or drug abuse patient.[facility] CenterIn the event this information is protected by the Federal Confidentiality of Alcohol and Drug Abuse Patient Records regulations: The Federal rules restrict any use of the information to criminally investigate or prosecute any alcohol or drug abuse patient.[facility] CenterIn the event this information is protected by the Federal Confidentiality of Alcohol and Drug Abuse Patient Records regulations: The Federal rules restrict any use of the information to criminally investigate or prosecute any alcohol or drug abuse patient.[facility] CenterIn the event this information is protected by the Federal Confidentiality of Alcohol and Drug Abuse Patient Records regulations: The Federal rules restrict any use of the information to criminally investigate or prosecute any alcohol or drug abuse patient.[facility] CenterIn the event this information is protected by the Federal Confidentiality of Alcohol and Drug Abuse Patient Records regulations: The Federal rules restrict any use of the information to criminally investigate or prosecute any alcohol or drug abuse patient.[facility] CenterIn the event this information is protected by the Federal Confidentiality of Alcohol and Drug Abuse Patient Records regulations: The Federal rules restrict any use of the information to criminally investigate or prosecute any alcohol or drug abuse patient.[facility] CenterIn the event this information is protected by the Federal Confidentiality of Alcohol and Drug Abuse Patient Records regulations: The Federal rules restrict any use of the information to criminally investigate or prosecute any alcohol or drug abuse patient.[facility] CenterIn the event this information is protected by the Federal Confidentiality of Alcohol and Drug Abuse Patient Records regulations: The Federal rules restrict any use of the information to criminally investigate or prosecute any alcohol or drug abuse patient.[facility] CenterIn the event this information is protected by the Federal Confidentiality of Alcohol and Drug Abuse Patient Records regulations: The Federal rules restrict any use of the information to criminally investigate or prosecute any alcohol or drug abuse patient.[facility] CenterIn the event this information is protected by the Federal Confidentiality of Alcohol and Drug Abuse Patient Records regulations: The Federal rules restrict any use of the information to criminally investigate or prosecute any alcohol or drug abuse patient.[facility] CenterIn the event this information is protected by the Federal Confidentiality of Alcohol and Drug Abuse Patient Records regulations: The Federal rules restrict any use of the information to criminally investigate or prosecute any alcohol or drug abuse patient.[facility] CenterIn the event this information is protected by the Federal Confidentiality of Alcohol and Drug Abuse Patient Records regulations: The Federal rules restrict any use of the information to criminally investigate or prosecute any alcohol or drug abuse patient.[facility] CenterIn the event this information is protected by the Federal Confidentiality of Alcohol and Drug Abuse Patient Records regulations: The Federal rules restrict any use of the information to criminally investigate or prosecute any alcohol or drug abuse patient.[facility] CenterIn the event this information is protected by the Federal Confidentiality of Alcohol and Drug Abuse Patient Records regulations: The Federal rules restrict any use of the information to criminally investigate or prosecute any alcohol or drug abuse patient.[facility] CenterIn the event this information is protected by the Federal Confidentiality of Alcohol and Drug Abuse Patient Records regulations: The Federal rules restrict any use of the information to criminally investigate or prosecute any alcohol or drug abuse patient.[facility] CenterIn the event this information is protected by the Federal Confidentiality of Alcohol and Drug Abuse Patient Records regulations: The Federal rules restrict any use of the information to criminally investigate or prosecute any alcohol or drug abuse patient.[facility] CenterIn the event this information is protected by the Federal Confidentiality of Alcohol and Drug Abuse Patient Records regulations: The Federal rules restrict any use of the information to criminally investigate or prosecute any alcohol or drug abuse patient.[facility] CenterIn the event this information is protected by the Federal Confidentiality of Alcohol and Drug Abuse Patient Records regulations: The Federal rules restrict any use of the information to criminally investigate or prosecute any alcohol or drug abuse patient.[facility] CenterIn the event this information is protected by the Federal Confidentiality of Alcohol and Drug Abuse Patient Records regulations: The Federal rules restrict any use of the information to criminally investigate or prosecute any alcohol or drug abuse patient.[facility] CenterIn the event this information is protected by the Federal Confidentiality of Alcohol and Drug Abuse Patient Records regulations: The Federal rules restrict any use of the information to criminally investigate or prosecute any alcohol or drug abuse patient.[facility] CenterIn the event this information is protected by the Federal Confidentiality of Alcohol and Drug Abuse Patient Records regulations: The Federal rules restrict any use of the information to criminally investigate or prosecute any alcohol or drug abuse patient.[facility] CenterIn the event this information is protected by the Federal Confidentiality of Alcohol and Drug Abuse Patient Records regulations: The Federal rules restrict any use of the information to criminally investigate or prosecute any alcohol or drug abuse patient.[facility] CenterIn the event this information is protected by the Federal Confidentiality of Alcohol and Drug Abuse Patient Records regulations: The Federal rules restrict any use of the information to criminally investigate or prosecute any alcohol or drug abuse patient.[facility] CenterIn the event this information is protected by the Federal Confidentiality of Alcohol and Drug Abuse Patient Records regulations: The Federal rules restrict any use of the information to criminally investigate or prosecute any alcohol or drug abuse patient.[facility] CenterIn the event this information is protected by the Federal Confidentiality of Alcohol and Drug Abuse Patient Records regulations: The Federal rules restrict any use of the information to criminally investigate or prosecute any alcohol or drug abuse patient.[facility] CenterIn the event this information is protected by the Federal Confidentiality of Alcohol and Drug Abuse Patient Records regulations: The Federal rules restrict any use of the information to criminally investigate or prosecute any alcohol or drug abuse patient.[facility] CenterIn the event this information is protected by the Federal Confidentiality of Alcohol and Drug Abuse Patient Records regulations: The Federal rules restrict any use of the information to criminally investigate or prosecute any alcohol or drug abuse patient.[facility] CenterIn the event this information is protected by the Federal Confidentiality of Alcohol and Drug Abuse Patient Records regulations: The Federal rules restrict any use of the information to criminally investigate or prosecute any alcohol or drug abuse patient.[facility] CenterIn the event this information is protected by the Federal Confidentiality of Alcohol and Drug Abuse Patient Records regulations: The Federal rules restrict any use of the information to criminally investigate or prosecute any alcohol or drug abuse patient.[facility] CenterIn the event this information is protected by the Federal Confidentiality of Alcohol and Drug Abuse Patient Records regulations: The Federal rules restrict any use of the information to criminally investigate or prosecute any alcohol or drug abuse patient.[facility] CenterIn the event this information is protected by the Federal Confidentiality of Alcohol and Drug Abuse Patient Records regulations: The Federal rules restrict any use of the information to criminally investigate or prosecute any alcohol or drug abuse patient.[facility] CenterIn the event this information is protected by the Federal Confidentiality of Alcohol and Drug Abuse Patient Records regulations: The Federal rules restrict any use of the information to criminally investigate or prosecute any alcohol or drug abuse patient.[facility] CenterIn the event this information is protected by the Federal Confidentiality of Alcohol and Drug Abuse Patient Records regulations: The Federal rules restrict any use of the information to criminally investigate or prosecute any alcohol or drug abuse patient.[facility] CenterIn the event this information is protected by the Federal Confidentiality of Alcohol and Drug Abuse Patient Records regulations: The Federal rules restrict any use of the information to criminally investigate or prosecute any alcohol or drug abuse patient.[facility] CenterIn the event this information is protected by the Federal Confidentiality of Alcohol and Drug Abuse Patient Records regulations: The Federal rules restrict any use of the information to criminally investigate or prosecute any alcohol or drug abuse patient.[facility] CenterIn the event this information is protected by the Federal Confidentiality of Alcohol and Drug Abuse Patient Records regulations: The Federal rules restrict any use of the information to criminally investigate or prosecute any alcohol or drug abuse patient.[facility] CenterIn the event this information is protected by the Federal Confidentiality of Alcohol and Drug Abuse Patient Records regulations: The Federal rules restrict any use of the information to criminally investigate or prosecute any alcohol or drug abuse patient.[facility] CenterIn the event this information is protected by the Federal Confidentiality of Alcohol and Drug Abuse Patient Records regulations: The Federal rules restrict any use of the information to criminally investigate or prosecute any alcohol or drug abuse patient.[facility] CenterIn the event this information is protected by the Federal Confidentiality of Alcohol and Drug Abuse Patient Records regulations: The Federal rules restrict any use of the information to criminally investigate or prosecute any alcohol or drug abuse patient.[facility] CenterIn the event this information is protected by the Federal Confidentiality of Alcohol and Drug Abuse Patient Records regulations: The Federal rules restrict any use of the information to criminally investigate or prosecute any alcohol or drug abuse patient.[facility] CenterIn the event this information is protected by the Federal Confidentiality of Alcohol and Drug Abuse Patient Records regulations: The Federal rules restrict any use of the information to criminally investigate or prosecute any alcohol or drug abuse patient.[facility] CenterIn the event this information is protected by the Federal Confidentiality of Alcohol and Drug Abuse Patient Records regulations: The Federal rules restrict any use of the information to criminally investigate or prosecute any alcohol or drug abuse patient.[facility] the event this information is protected by the Federal Confidentiality of Alcohol and Drug Abuse Patient Records regulations: The Federal rules restrict any use of the information to criminally investigate or prosecute any alcohol or drug abuse patient.[facility] CenterIn the event this information is protected by the Federal Confidentiality of Alcohol and Drug Abuse Patient Records regulations: The Federal rules restrict any use of the information to criminally investigate or prosecute any alcohol or drug abuse patient.[facility] CenterIn the event this information is protected by the Federal Confidentiality of Alcohol and Drug Abuse Patient Records regulations: The Federal rules restrict any use of the information to criminally investigate or prosecute any alcohol or drug abuse patient.[facility]In the event this information is protected by the Federal Confidentiality of Alcohol and Drug Abuse Patient Records regulations: The Federal rules restrict any use of the information to criminally investigate or prosecute any alcohol or drug abuse patient.[facility] CenterIn the event this information is protected by the Federal Confidentiality of Alcohol and Drug Abuse Patient Records regulations: The Federal rules restrict any use of the information to criminally investigate or prosecute any alcohol or drug abuse patient.[facility] CenterIn the event this information is protected by the Federal Confidentiality of Alcohol and Drug Abuse Patient Records regulations: The Federal rules restrict any use of the information to criminally investigate or prosecute any alcohol or drug abuse patient.[facility] CenterIn the event this information is protected by the Federal Confidentiality of Alcohol and Drug Abuse Patient Records regulations: The Federal rules restrict any use of the information to criminally investigate or prosecute any alcohol or drug abuse patient.[facility] CenterIn the event this information is protected by the Federal Confidentiality of Alcohol and Drug Abuse Patient Records regulations: The Federal rules restrict any use of the information to criminally investigate or prosecute any alcohol or drug abuse patient.[facility] CenterIn the event this information is protected by the Federal Confidentiality of Alcohol and Drug Abuse Patient Records regulations: The Federal rules restrict any use of the information to criminally investigate or prosecute any alcohol or drug abuse patient.[facility] CenterIn the event this information is protected by the Federal Confidentiality of Alcohol and Drug Abuse Patient Records regulations: The Federal rules restrict any use of the information to criminally investigate or prosecute any alcohol or drug abuse patient.[facility] CenterIn the event this information is protected by the Federal Confidentiality of Alcohol and Drug Abuse Patient Records regulations: The Federal rules restrict any use of the information to criminally investigate or prosecute any alcohol or drug abuse patient.[facility] CenterIn the event this information is protected by the Federal Confidentiality of Alcohol and Drug Abuse Patient Records regulations: The Federal rules restrict any use of the information to criminally investigate or prosecute any alcohol or drug abuse patient.[facility] CenterIn the event this information is protected by the Federal Confidentiality of Alcohol and Drug Abuse Patient Records regulations: The Federal rules restrict any use of the information to criminally investigate or prosecute any alcohol or drug abuse patient.[facility] CenterIn the event this information is protected by the Federal Confidentiality of Alcohol and Drug Abuse Patient Records regulations: The Federal rules restrict any use of the information to criminally investigate or prosecute any alcohol or drug abuse patient.[facility] CenterIn the event this information is protected by the Federal Confidentiality of Alcohol and Drug Abuse Patient Records regulations: The Federal rules restrict any use of the information to criminally investigate or prosecute any alcohol or drug abuse patient.[facility] CenterIn the event this information is protected by the Federal Confidentiality of Alcohol and Drug Abuse Patient Records regulations: The Federal rules restrict any use of the information to criminally investigate or prosecute any alcohol or drug abuse patient.[facility] Reason for Visit (unrecogniz ed section and content) Reason Onset Date Comments Refill Request 12/10/2021 Reason Comments Headache SARAH, nausea dn dizzy x 1 hour Reason Comments Patient Update Reason Comments Established Patient [facility] hospital follow up-dizziness/nausea Reason Comments Results Reason [...] PRE&POST-BRNCDILAT Pamela Meade MD [address] [place] [address] Respiratory [place] [address] [facility] [place] [address] Referral ID Status Reason Start Date Expiration Date V isits Requested Visits Authorized [id number] Closed Auto-Generate d Referral 05/09/2022 06/08/2023 1 [...] CT Specialty Diagnoses / Procedures Referred By Contac t Referred To Contact CT IMAGING Diagnoses 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) Chronic cough Procedures CT CHEST WO IVCON DIAGNOSTIC COMPUTED TOMOGRAPHY THORAX W/O Pamela Riddle MD [address] [facility] [place] [address] [place] [id number] Referral ID Status Reason Start Date Expiration Date V isits Requested Visits Authorized [id number] Closed Auto-Generate d Referral 11/28/2023 12/27/2024 1 [...] Care Teams (unrecognized sec tion and content) Check And Transfer Beader Relationship Specialty Start Date End Date Darin Alonzo MD [address] [place], [place] [id number] PCP - General Internal Medicine 05/18/16 Check And Transfer Beader Relationship Specialty Start Date End Date Darin Alonzo MD [address] [place] [address] PCP - General Internal Medicine 05/18/16 Check And Transfer Beader Relationship Specialty Start Date End Date Darin Alonzo MD [address] [facility] [place] [address] PCP - General Internal Medicine 05/18/16 Check And Transfer Beader Relationship Specialty Start Date End Date Darin Alonzo MD [address] [facility] [place] [address] PCP - General Internal Medicine 05/18/16 Check And Transfer Beader Relationship Specialty Start Date End Date Darin Alonzo MD [address] [facility] [place] [address] PCP - General Internal Medicine 05/18/16 Check And Transfer Beader Relationship Specialty Start Date End Date Darin Alonzo MD [address] [facility] [place] [address] PCP - General Internal Medicine 05/18/16 Check And Transfer Beader Relationship Specialty Start Date End Date Darin Alonzo MD [address] [facility] [place] [address] PCP - General Internal Medicine 05/18/16 Check And Transfer Beader Relationship Specialty Start Date End Date Darin Alonzo MD [address] [facility] [place] [address] PCP - General Internal Medicine 05/18/16 Check And Transfer Beader Relationship Specialty Start Date End Date Darin Alonzo MD [address] [facility] [place] [address] PCP - General Internal Medicine 05/18/16 Check And Transfer Beader Relationship Specialty Start Date End Date Darin Alonzo MD [address] [facility] [place] [address] PCP - General Internal Medicine 05/18/16 Check And Transfer Beader Relationship Specialty Start Date End Date Darin Alonzo MD [address] [facility] [place] [address] PCP - General Internal Medicine 05/18/16 Check And Transfer Beader Relationship Specialty Start Date End Date Darin Alonzo MD [address] [facility] [place] [address] PCP - General Internal Medicine 05/18/16 Check And Transfer Beader Relationship Specialty Start Date End Date Darin Alonzo MD [address] [facility] [place] [address] PCP - General Internal Medicine 05/18/16 Check And Transfer Beader Relationship Specialty Start Date End Date Dairn Alonzo MD [address] [facility] [place] [address] PCP - General Internal Medicine 05/18/16 Check And Transfer Beader Relationship Specialty Start Date End Date Darin Alonzo MD [address] [facility] [place] [address] PCP - General Internal Medicine 05/18/16 Check And Transfer Beader Relationship Specialty Start Date End Date Darin Alonzo MD [address] [facility] [place] [address] PCP - General Internal Medicine 05/18/16 Check And Transfer Beader Relationship Specialty Start Date End Date Darin Alonzo MD [address] [facility] [place] [address] PCP - General Internal Medicine 05/18/16 Check And Transfer Beader Relationship Specialty Start Date End Date Darin Alonzo MD [address] [facility] [place] [address] PCP - General Internal Medicine 05/18/16 Check And Transfer Beader Relationship Specialty Start Date End Date Darin Alonzo MD [address] [facility] [place] [address] PCP - General Internal Medicine 05/18/16 Check And Transfer Beader Relationship Specialty Start Date End Date Darin Alonzo MD [address] [place] [address] PCP - General Internal Medicine 05/18/16 Team Status: Active Member Role Status Dates Dr. Darin Alonzo MD Family Provider Active Dr. Darin Alonzo MD Primary Care Provider Active Team Status: Active Member Role Status Dates Dr. Darin Alonoz MD Primary Care Provider Active Dr. Rogerio Brower MD Attending Provider Active Team Status: Inactive Member Role Status Dates Dr. Darin Alonzo MD Primary Care Provider Active Dr. Richi Degroot MD Attending Provider, Referring Pro vider Active Check And Transfer Beader Relationship Specialty Start Date End Date Darin Alonzo MD [address] [place] [address] PCP - General Internal Medicine 05/18/16 Check And Transfer Beader Relationship Specialty Start Date End Date Darin Alonzo MD [address] [place] [address] PCP - General Internal Medicine 05/18/16 Team Status: Inactive Member Role Status Dates Dr. Darin Alonzo MD Primary Care Provider, Referring Provider Active DANIEL Valladares Attending Provider Active Team Status: Inactive Member Role Status Dates Dr. Darin Alonzo MD Primary Care Provider Active GRISELDA LEMA , RESERVATIONS MANAGER-C Attending Provider, Referring Provide r Active Check And Transfer Beader Relationship Specialty Start Date End Date Darin Alonzo MD [address] [place] [address] PCP - General Internal Medicine 05/18/16 Check And Transfer Beader Relationship Specialty Start Date End Date Darin Alonzo MD [address] [place] [address] PCP - General Internal Medicine 05/18/16 Check And Transfer Beader Relationship Specialty Start Date End Date Darin Alonzo MD [address] [place] [place], [place] [address] [phone] PCP - General Internal Medicine 05/18/16 Team Status: Inactive Member Role Status Dates Dr. Darin Alonzo MD Primary Care Provider, Referring Provider Active DANIEL Neff Attending Provider Active Check And Transfer Beader Relationship Specialty Start Date End Date Darin Alonzo MD [address] [place] [address] PCP - General Internal Medicine 05/18/16 Check And Transfer Beader Relationship Specialty Start Date End Date Darin Alonzo MD [address] [place] [address] PCP - General Internal Medicine 05/18/16 Check And Transfer Beader Relationship Specialty Start Date End Date Darin Alonzo MD [address] [place] [address] PCP - General Internal Medicine 05/18/16 Check And Transfer Beader Relationship Specialty Start Date End Date Darin Alonzo MD [address] [place] [address] PCP - General Internal Medicine 05/18/16 Check And Transfer Beader Relationship Specialty Start Date End Date Darin Alonzo MD [address] [place] [address] PCP - General Internal Medicine 05/18/16 Check And Transfer Beader Relationship Specialty Start Date End Date Darin Alonzo MD [address] [place] [address] PCP - General Internal Medicine 05/18/16 Check And Transfer Beader Relationship Specialty Start Date End Date Darin Alonzo MD [address] [place] [address] PCP - General Internal Medicine 05/18/16 Check And Transfer Beader Relationship Specialty Start Date End Date Darin Alonzo MD [address] [place] [address] PCP - General Internal Medicine 05/18/16 Check And Transfer Beader Relationship Specialty Start Date End Date Darin Alonzo MD [address] [place] [address] PCP - General Internal Medicine 05/18/16 Check And Transfer Beader Relationship Specialty Start Date End Date Darin Alonzo MD [address] [place] [address] PCP - General Internal Medicine 05/18/16 Check And Transfer Beader Relationship Specialty Start Date End Date Darin Alonzo MD [address] [place] [address] PCP - General Internal Medicine 05/18/16 Check And Transfer Beader Relationship Specialty Start Date End Date Darin Alonzo MD [address] [place] [address] PCP - General Internal Medicine 05/18/16 Check And Transfer Beader Relationship Specialty Start Date End Date Darin Alonzo MD [address] [place] [address] PCP - General Internal Medicine 05/18/16 Check And Transfer Beader Relationship Specialty Start Date End Date Darin Alonzo MD [address] [place] [address] PCP - General Internal Medicine 05/18/16 Check And Transfer Beader Relationship Specialty Start Date End Date Darin Alonzo MD [address] [place] [address] PCP - General Internal Medicine 05/18/16 Check And Transfer Beader Relationship Specialty Start Date End Date Darin Alonzo MD [address] [facility] [place] [address] PCP - General Internal Medicine 05/18/16 Check And Transfer Beader Relationship Specialty Start Date End Date Darin Alonzo MD [address] [facility] [place] [address] PCP - General Internal Medicine 05/18/16 Check And Transfer Beader Relationship Specialty Start Date End Date Darin Alonzo MD [address] [place] [address] PCP - General Internal Medicine 05/18/16 Check And Transfer Beader Relationship Specialty Start Date End Date Darin Alonzo MD [address] [place] [address] PCP - General Internal Medicine 05/18/16 Check And Transfer Beader Relationship Specialty Start Date End Date Darin Alonzo MD [address] [place] [address] PCP - General Internal Medicine 05/18/16 Arturo Winter PA-C [address] [place] [address] Pre Billing Clinician Family Medicine 08/18/24 Griselda Lema APRN.DISPOSAL PLANT OPERATOR [address] [place] [address] Pre Billing Clinician Internal Medicine 08/18/24 Lorene Mendez PA-C [address] [place] [address] Pre Billing Clinician Family Medicine 08/18/24 Check And Transfer Beader Relationship Specialty Start Date End Date Darin Alonzo MD [address] [place] [address] PCP - General Internal Medicine 05/18/16 Arturo Winter PA-C [address] [place] [address] Pre Billing Clinician Family Medicine 08/18/24 Griselda Lema, ROR ENGINEER.DISPOSAL PLANT OPERATOR [address] [place] [address] Pre Billing Clinician Internal Medicine 08/18/24 Lorene Mendez PA-C [address] [place] [address] [facility] Check And Transfer Beader Relationship Specialty Start Date End Date Darin Alonzo MD [address] [place] [address] PCP - General Internal Medicine 05/18/16 Arturo Winter PA-C [address] [place] [address] Pre Billing Clinician Family Medicine 08/18/24 Griselda Lema, ROR ENGINEER.DISPOSAL PLANT OPERATOR [address] [place] [address] Pre Billing Clinician Internal Medicine 08/18/24 Lorene Mendez PA-C [address] [place] [address] Pre Billing Clinician Family Medicine 08/18/24 Check And Transfer Beader Relationship Specialty Start Date End Date Darin Alonzo MD [address] [place] [address] PCP - General Internal Medicine 05/18/16 Arturo Winter PA-C [address] [place] [address] Pre Billing Clinician Family Medicine 08/18/24 Griselda Lema APRN.DISPOSAL PLANT OPERATOR [address] [place] [address] Pre Billing Clinician Internal Medicine 08/18/24 Lorene Mendez PA-C [address] [place] [address] Pre Billing Clinician Family Medicine 08/18/24 Check And Transfer Beader Relationship Specialty Start Date End Date Darin Alonzo MD [address] [place] [address] PCP - General Internal Medicine 05/18/16 Arturo Winter PA-C [address] [place] [address] Pre Billing Clinician Family Medicine 08/18/24 Griselda Lema APRN.DISPOSAL PLANT OPERATOR [address] [place] [address] Pre Billing Clinician Internal Medicine 08/18/24 Lorene Mendez PA-C [address] [place] [address] Pre Billing Clinician Family Medicine 08/18/24 Check And Transfer Beader Relationship Specialty Start Date End Date Darin Alonzo MD [address] [place] [address] PCP - General Internal Medicine 05/18/16 Arturo Winter PA-C [address] [place] [address] Pre Billing Clinician Family [facility] 08/18/24 Griselda Lema APRN.DISPOSAL PLANT OPERATOR [address] [place] [address] Pre Billing Clinician Internal Medicine 08/18/24 Lorene Mendez PA-C [address] [place] [address] [facility] 08/18/24 Check And Transfer Beader Relationship Specialty Start Date End Date Darin Alonzo MD [address] [place] [address] PCP - General Internal Medicine 05/18/16 Arturo Winter PA-C [address] [place] [address] [facility] Medicine 08/18/24 Griselda Lema APRN.DISPOSAL PLANT OPERATOR [address] [place] [address] Pre Billing Clinician Internal Medicine 08/18/24 Lorene Mendez PA-C [address] [facility] [place] [address] [facility] 08/18/24 Check And Transfer Beader Relationship Specialty Start Date End Date Darin Alonzo MD [address] [facility] [place] [address] PCP - General Internal Medicine 05/18/16 Griselda Lema APRN.DISPOSAL PLANT OPERATOR [address] [facility] [place] [address] Pre Billing Clinician Internal Medicine 08/18/24 Check And Transfer Beader Relationship Specialty Start Date End Date Darin Alonzo MD [address] [facility] [place] [address] PCP - General Internal Medicine 05/18/16 Griselda Lema APRN.DISPOSAL PLANT OPERATOR [address] [facility] [place] [address] Pre Billing Clinician Internal Medicine 08/18/24 Check And Transfer Beader Relationship Specialty Start Date End Date Darin Alonzo MD [address] [facility] [place] [address] PCP - General Internal Medicine 05/18/16 Griselda Lema APRN.DISPOSAL PLANT OPERATOR [address] [facility] [place] [address] Pre Billing Clinician Internal Medicine 08/18/24 Check And Transfer Beader Relationship Specialty Start Date End Date Darin Alonzo MD [address] [facility] [place] [address] PCP - General Internal Medicine 05/18/16 Griselda Lema APRN.DISPOSAL PLANT OPERATOR [address] [facility] [place] [address] Pre Billing Clinician Internal Medicine 08/18/24 Check And Transfer Beader Relationship Specialty Start Date End Date Darin Alonzo MD [address] [facility] [place] [address] PCP - General Internal Medicine 05/18/16 Griselda Lema APRN.DISPOSAL PLANT OPERATOR [address] [place] [address] Pre Billing Clinician Internal Medicine 08/18/24 Check And Transfer Beader Relationship Specialty Start Date End Date Darin Alonzo MD [address] [place] [address] PCP - General Internal Medicine 05/18/16 Griselda Lema APRN.DISPOSAL PLANT OPERATOR [address] [facility] [place] [address] Pre Billing Clinician Internal Medicine 08/18/24 Check And Transfer Beader Relationship Specialty Start Date End Date Darin Alonzo MD [address] [facility] [address] PCP - General Internal Medicine 05/18/16 Griselda Lema APRN.DISPOSAL PLANT OPERATOR [address] [place] [address] Pre Billing Clinician Internal Medicine 08/18/24 Check And Transfer Beader Relationship Specialty Start Date End Date Darin Alonzo MD [address] [facility] [place] [address] PCP - General Internal Medicine 05/18/16 Griselda Lema APRN.DISPOSAL PLANT OPERATOR [address] [place] [address] Pre Billing Clinician Internal Medicine 08/18/24 Check And Transfer Beader Relationship Specialty Start Date End Date Darin Alonzo MD [address] [facility] [place] [place] [address] PCP - General Internal Medicine 05/18/16 Griselda Lema APRN.DISPOSAL PLANT OPERATOR [address] [place] [address] [facility] Internal Medicine 08/18/24 Check And Transfer Beader Relationship Specialty Start Date End Date Darin Alonzo MD [address] [place], [place] [address] PCP - General Internal Medicine 05/18/16 Griselda Lema, ROR ENGINEER.DISPOSAL PLANT OPERATOR [address] [place], [place] [address] Pre Billing Clinician Internal [facility] 08/18/24 Check And Transfer Beader Relationship Specialty Start Date End Date Darin Alonzo MD [address] [place], [place] [address] PCP - General Internal Medicine 05/18/16 Griselda Lema, ROR ENGINEER.DISPOSAL PLANT OPERATOR [address] [place], [place] [address] [facility] Internal [facility] 08/18/24 Team Status: Active Member Role/Relationship Status [...] BE BASED ON THE PRIMARY CLINICAL RECORDS. [facility] [employer] [facility]. provides no warranty or guarantee of the accuracy or completeness of information in this document.
[2025-04-13] MEDS: 0.9% Normal Saline (1000mL) 1,000 ML 70 ML IV (03:11)
[2025-04-13 05:11] LABS: Mucous, Urine 0 SEEN /hpf (<or=2+); Red Blood Cells-Urine 0 SEEN /hpf (0-5)
[2025-04-13 05:24] LABS: Color, Urine Yellow (Yellow); Glucose, Dipstick 100 mg/dl (Normal); Ketone-Dipstick 50 mg/dl (Negative); Leukocyte Esterase-Dipstick Negative /ul (Negative); Nitrite-Dipstick Negative (Negative); Occult Blood-Urine Negative /ul (Negative); Protein-Dipstick 15 mg/dl (Negative); Specific Gravity, Urine 1.015 (1.002-1.030); Urine Bilirubin Dipstick Negative (Negative)
[2025-04-13 05:56] LABS: Squamous Epithelial Cells - UA 0-5 SEEN /hpf (5-10)
[2025-04-13 06:41] LABS: Hematocrit 35.3 % (37-47); Hemoglobin 11.7 g/dL (12.0-15.0); Immature Granulocytes Count 0.030 X10^3/uL (0.0-0.0); Mean Corp Hgb Conc 33.1 g/dL (32-36); Mean Corpuscular Volume 85.5 fL (81-99); Mean Platelet Vol. 10.0 fl (6.2-12.0); NRBC Flagged by Analyzer 0 % (0-5); Platelet Count 244 K/mm3 (150-450); RBC Distribution Width CV 15.4 % (11.6-14.6); RBC Distribution Width SD 47.9 fl (35.1-43.9); Red Blood Count 4.13 M/mm3 (4.2-5.4); White Blood Count 9.2 K/mm3 (4.4-11.0)
[2025-04-13] MEDS: Budesonide Respules 0.5 MG/2 ML AMPUL.NEB. INHALATION (07:07)
[2025-04-13] MEDS: Albuterol 2.5 MG/3 ML VIAL.NEB. INHALATION ×2 (07:07→12:20)
[2025-04-13 07:20] LABS: AST(SGOT) 26 U/L (<=31); Alanine Aminotransfer ALT/SGPT 21 U/L (<=34); Albumin, Serum 3.8 g/dL (3.4-4.8); Alkaline Phosphatase 53 U/L (35-104); Anion Gap 13 (5-15); BUN 12 mg/dL (4-19); BUN/Creat Ratio 20.0 RATIO (10-20); Calcium,Total 8.6 mg/dL (7.6-11.0); Carbon Dioxide 20.8 mmol/L (21.0-32.0); Chloride 102 mmol/L (98-108); Cholesterol 138 mg/dL (<=200); Estimated Creatinine Clearance 52.96 ml/min (50-250); Globulin 2.8 g/dL (2.2-4.2); Glucose 151 mg/dL (70-99); Low Density Lipoprotein Calc. 60 mg/dL; Potassium 3.9 mmol/L (3.3-5.1); Triglycerides 62 mg/dL; Very Low Density Lipoprotein 12 mg/dL (5-40); Vitamin B12 366 pg/mL (180-914); cholesterol:hdl ratio screen 2.10
[2025-04-13 07:46] LABS: FOLATES,SERUM (FOLIC ACID) 29.50 ng/mL (4.60-34.80)
[2025-04-13] MEDS: 0.9% Saline Lock 10 ML Syringe IV ×3 (08:40→20:24)
--- NOTE | 2025-04-13 12:18 | PCM.HOSP.N ---
Hospitalist Note Patient admitted for vertiginous symptoms, headache, nausea and vomiting. Patient reports that the sensation of dizziness started yesterday after she was already up and about and happens with movement of her head and positional changes and is significantly improved with rest and staying still and closing her eyes. She still having a bit of a headache but it slowly improving with Tylenol, had been nauseous at home and vomiting but reports she had been trying to force herself to eat food because she thought she was supposed to, this a.m. had some tea and Jell-O and thus far is tolerating it well. Patient's neuroexam completely benign and vertiginous symptoms do seem consistent with peripheral vertigo, will give patient dose of meclizine, supportive care. Does have history of this and had an MRI previously during 1 of these episodes which was negative. If patient does not improve or if symptoms change may need to consider MRI however at this point exam and story does not seem consistent with central etiology. Additionally CTA head and neck when she presented showed left ICA about 70% stenosis and right ICA less than 50% stenosis, has had notes of stenosis previously but has not followed up in several years. Admitting physician consulted vascular physician and ordered a.m. carotid duplex. Continue supportive care, treatment for presumed flare of peripheral vertigo, appreciate vascular recommendations. Consider MRI if no improvement or if change in symptoms
[2025-04-13] MEDS: Magnesium Chloride 64 MG Delay Rel.Tablet 128 MG PO (14:50)
[2025-04-14 03:17] VITALS: BP 138/61; PULSE 68; RESP 14; TEMP 36.8; O2SAT 96
[2025-04-14 04:59] VITALS: BMI 25.3
[2025-04-14 05:50] LABS: Hematocrit 34.0 % (37-47); Hemoglobin 11.1 g/dL (12.0-15.0); Immature Granulocytes Count 0.020 X10^3/uL (0.0-0.0); Mean Corp Hgb Conc 32.6 g/dL (32-36); Mean Corpuscular Volume 86.3 fL (81-99); Mean Platelet Vol. 9.9 fl (6.2-12.0); NRBC Flagged by Analyzer 0 % (0-5); Platelet Count 220 K/mm3 (150-450); RBC Distribution Width CV 15.5 % (11.6-14.6); RBC Distribution Width SD 49.0 fl (35.1-43.9); Red Blood Count 3.94 M/mm3 (4.2-5.4); White Blood Count 5.9 K/mm3 (4.4-11.0)
[2025-04-14 06:27] LABS: Anion Gap 11 (5-15); BUN 8 mg/dL (4-19); BUN/Creat Ratio 11.9 RATIO (10-20); Calcium,Total 8.6 mg/dL (7.6-11.0); Carbon Dioxide 22.0 mmol/L (21.0-32.0); Chloride 103 mmol/L (98-108); Estimated Creatinine Clearance 52.93 ml/min (50-250); Glucose 117 mg/dL (70-99); Potassium 3.7 mmol/L (3.3-5.1)
[2025-04-14] MEDS: Budesonide Respules 0.5 MG/2 ML AMPUL.NEB. INHALATION (07:22)
[2025-04-14] MEDS: Albuterol 2.5 MG/3 ML VIAL.NEB. INHALATION ×2 (07:22→13:18)
[2025-04-14 07:45] VITALS: PULSE 78; RESP 20
--- NOTE | 2025-04-14 07:59 | EX.PCM.CON.S ---
Assessment & Plan Assessment/Plan (1) Carotid artery stenosis: QUALIFIERS: Laterality: bilateral Qualified Code(s): I65.23 - Occlusion and stenosis of bilateral carotid arteries PLAN: -CT reviewed; left ICA 52% stenosis, right <50% -will obtain duplex to confirm correlation -ok to DC after duplex completed, F/U in office to re-establish surveillance plan HPI Consult Data Date of Consult: 04/14/25 HPI Narrative HPI Narrative: ERA PARKER, is a 84 F who presents with dizziness, N/V Monday that began abruptly. No focal numbness/weakness/vision loss/speech difficulty. No prior similar symptoms. She has known bilateral carotid mild stenosis. Her symptoms have resolved for the most part, though some residual dizziness this AM when getting out of bed. She takes 81 mg ASA daily, simvastatin. [facility] Medical History Essential hypertension Carotid artery stenosis Nausea Diabetes Hyperlipemia Home Medications ?Medication ?Instructions ?Recorded ?Last Taken ?Type aspirin 81 mg chewable tablet 1 tab PO DAILY heart health 03/10/22 04/12/25 History fexofenadine 60 mg tablet 60 mg PO DAILY allergies 03/10/22 04/12/25 History glimepiride 1 mg tablet 1 tab PO BID diabetes 03/10/22 04/12/25 History levothyroxine 125 mcg tablet 1 tab PO SUTUWETHFRSA thyroid 03/10/22 04/12/25 History metformin 1,000 mg tablet 1 tab PO BID diabetes 03/10/22 04/12/25 History pantoprazole 20 mg tablet,delayed 1 tab PO DAILY reflux 03/10/22 04/12/25 History release simvastatin 10 mg tablet 1 tab PO DAILY cholesterol 03/10/22 04/12/25 History sitagliptin phosphate 100 mg 1 tab PO DAILY diabetes 03/10/22 04/12/25 History tablet (Januvia) trazodone 50 mg tablet 1 tab PO QHS sleep 03/10/22 04/11/25 History amlodipine 2.5 mg tablet 2.5 mg PO DAILY 03/21/23 04/12/25 History telmisartan 20 mg tablet 20 mg PO DAILY 03/21/23 04/12/25 History fluticasone 250 mcg-salmeterol 50 1 ea inhalation BID 04/13/25 04/12/25 History mcg/dose blistr powdr for inhalation ipratropium bromide 42 mcg (0.06 2 spray intranasal 4X/DAY 04/13/25 04/12/25 History %) nasal spray levothyroxine 125 mcg tablet 62.5 mcg PO MO 04/13/25 04/07/25 History (Euthyrox) magnesium chloride 64 mg 128 mg PO DAILY 04/13/25 04/12/25 History (magnesium chloride) tablet,delayed release (Mag 64) [id number] 1 tab PO DAILY 04/13/25 04/12/25 History tablet (A Thru Z High Potency tablet) Allergy/AdvReac Type Severity Reaction Status Date / Time Sulfa (Sulfonamide Allergy Hives Verified 04/13/25 02:47 Antibiotics) lisinopril AdvReac Cough Verified 04/13/25 02:47 Family History Other Diabetes Hypertension Surgical History History of thyroidectomy History of hysterectomy Social History household members: none Smoking Status: Never smoker alcohol intake: current alcohol intake frequency: holidays/special occasions only substance use type: does not use ROS Constitutional Constitutional: Denies chills, fever(s), frequent falls, lethargy or weakness Eyes Eyes: Denies blind spots, change in vision or loss of vision ENT HEENT: Denies bleeding gums, hoarseness or sore throat Cardiovascular Cardiovascular: Denies abdominal pain, bluish discoloration of hand/feet, chest pain with activity, claudication, cold extremities, cyanosis, dyspnea on exertion, erythema on extremities, irregular heart rhythm, leg edema, leg ulcers, numbness in extremities or weakness in extremities Respiratory/Chest Respiratory/Chest: Denies cough, excessive phlegm production, shortness of breath at rest, shortness of breath with exertion or wheezing Gastrointestinal Gastrointestinal: Reports nausea and vomiting; Denies anorexia, change in stool character, constipation, diarrhea, melena or rectal bleeding Genitourinary Genitourinary: Denies dysuria or hematuria Musculoskeletal Musculoskeletal: Denies abnormal gait Integumentary Integumentary: Denies erythema, non-healing lesions or wounds Neurologic Neurologic: Reports vertigo; Denies abnormal speech, focal weakness, headache(s), loss of vision, numbness, paresthesias or sensory deficit Hematologic/Lymphatic Hematologic/Lymphatic: Denies easy bleeding, easy bruising or lymphadenopathy Physical Exam Const alert, oriented x3, no apparent distress and healthy appearing General Appearance: cooperative; Negative for combative or lethargic Orientation / Consciousness: awake Exam Limitations: no limitations HEENT Head and Scalp: normocephalic and atraumatic Eyes EOMs intact bilaterally General Eye: normal appearance of both eyes Neck full ROM General: trachea midline Resp normal respiratory effort and no use of accessory muscles Effort and Inspection: Negative for labored, stridor or audible wheezes Cardio regular rate and regular rhythm Peripheral Pulses: brachial pulses present and radial pulses present Back/Spine Cervical Spine: cervical ROM normal Extremity full ROM, normal capillary refill and no clubbing, cyanosis or edema Skin no rashes or lesions noted and no wounds Neuro oriented x3, CN's II-XII intact bilaterally, no focal motor deficits and no sensory deficits noted Psych thought process normal, cooperative, affect normal, speech normal and activity/motor behavior normal Lab / Micro Data 04/14/25 05:33 04/14/25 05:33 Labs: Laboratory Results - last 24 hr 04/13/25 12:28: POC Glucose 241 H 04/13/25 16:50: POC Glucose 124 H 04/13/25 23:46: POC Glucose 122 H 04/14/25 05:33: WBC 5.9, RBC 3.94 L, Hgb 11.1 L, Hct 34.0 L, MCV 86.3, MCH 28.2, MCHC 32.6, RDW Std Deviation 49.0 H, RDW Coeff of Armond 15.5 H, Plt Count 220, MPV 9.9, Immature Gran % (Auto) 0.300, Neut % (Auto) 61.1, Lymph % (Auto) 29.1, [place] % (Auto) 6.9, Eos % (Auto) 1.9, Baso % (Auto) 0.7, Absolute Neuts (auto) 3.6, Absolute Lymphs (auto) 1.72, Nucleated RBC % 0, Sodium 136, Potassium 3.7, Chloride 103, Carbon Dioxide 22.0, Anion Gap 11, BUN 8, Creatinine 0.69 L, Estim Creat Clear Calc 52.93, Est GFR (MDRD) Non-Af 87, BUN/Creatinine Ratio 11.9, Glucose 117 H, Calcium 8.6 04/14/25 06:03: POC Glucose 125 H Charges/Coding Visit Charges Inpatient E&M: 41150 Init Hosp L3
[2025-04-14 08:14] VITALS: O2SAT 97
[2025-04-14 08:26] VITALS: BP 137/64; PULSE 80; RESP 17; TEMP 36.6; O2SAT 100
--- NOTE | 2025-04-14 09:32 | CASEMGMT ---
Dx: Acute on chronic vertigo with N/V LACE: 2 6-Clicks: 19 Medical record reviewed and patient evaluated for identification of discharge planning needs. Based on this review, at this time criteria are not present to indicate a need for discharge planning. Will remain available to assist with discharge planning needs as identified or requested.
[2025-04-14] MEDS: Magnesium Chloride 64 MG Delay Rel.Tablet 128 MG PO (09:47)
[2025-04-14 13:55] VITALS: PULSE 71; RESP 17
[2025-04-14 14:30] VITALS: BP 144/60; PULSE 78; RESP 17; TEMP 36.7; O2SAT 100
--- NOTE | 2025-04-14 15:02 | DCINST_ITS ---
Discharge Instructions DC O2, CPAP, BIPAP needs Home O2 Discharge instructions: No Dressing / Incision Discharge Activity: Return to Normal Activity Weight Bearing Status: Full weight bearing Follow Up Care Test Results: Test results from this visit will be discussed in further detail at your follow- up appointment, if applicable. Discharge Plan Admission Admit Date/Time: 04/13/25 17:10 Primary Reason for Your Visit: Vertigo, headache, nausea and vomiting Attending Provider: Lamberto Olguin Primary Care Provider: Rupinder Lei Consulting Providers: Raj Schroeder; Richi Degroot; Renee Foote Discharge Orders/Prescriptions Prescriptions: New meclizine 12.5 mg Tablet 12.5 mg PO TID PRN PRN (Reason: Dizziness) Qty: 20 0RF Continued amlodipine 2.5 mg tablet 2.5 mg PO DAILY telmisartan 20 mg tablet 20 mg PO DAILY trazodone 50 mg tablet 1 tab PO QHS fexofenadine 60 mg Tablet 60 mg PO DAILY simvastatin 10 mg tablet 1 tab PO DAILY glimepiride 1 mg tablet 1 tab PO BID pantoprazole 20 mg tablet,delayed release (DR/EC) 1 tab PO DAILY metformin 1,000 mg tablet 1 tab PO BID levothyroxine 125 mcg tablet 1 tab PO SUTUWETHFRSA Januvia 100 mg tablet 1 tab PO DAILY Patient Comments: 1 tablet by mouth once a day aspirin 81 mg Tablet,Chewable 1 tab PO DAILY fluticasone propion-salmeterol 250-50 mcg/dose blister with device 1 ea inhalation BID ipratropium bromide 42 mcg (0.06 %) spray,non-aerosol 2 spray INTRANASAL 4X/DAY Patient Comments: [NO ORIGINAL SIG] levothyroxine [Euthyrox] 125 mcg tablet 62.5 mcg PO MO magnesium chloride [Mag 64] 64 mg tablet,delayed release (DR/EC) 128 mg PO DAILY A Thru Z High Potency Tablet 1 tab PO DAILY Referrals / Follow Up: Rupinder Lei MD [Primary Care Provider] - See Referral Note (In 2 weeks) Disposition Disposition (needs filled in before D/C Order can be placed): Home, Self Care
--- NOTE | 2025-04-14 15:13 | DS.PCM_ITS ---
Providers Date of Admission: 04/13/25 Date of Discharge: 04/14/25 Primary Care Physician: Dr. Rupinder Lei MD Consultations 04/13/25 02:14 Consult: Vascular Surgery Routine Consulting Provider: Richi Degroot Reason for Consult: ~70% narrowing in the proximal Left ICA on CT. EMERGENT Consult: No MD Notified: Yes Date Notified: 04/13/25 Time Notified: 07:34 Method of Notification: Verbal Method of Consult:: In-Person Reason For Visit: [id number] VERTIGO WITH N/V Diagnosis Discharge Diagnosis (1) Carotid artery stenosis: Status: Acute Code(s): I65.29 - Occlusion and stenosis of unspecified carotid artery Qualifiers: Laterality: bilateral Qualified Code(s): I65.23 - Occlusion and stenosis of bilateral carotid arteries Plan 1. Acute on chronic vertigo #2 essential hypertension #3 hyperlipidemia #4 hypothyroidism #5 type 2 diabetes #6 carotid artery stenosis-mild in nature Medications at Discharge Home Medications aspirin 81 mg chewable tablet 1 tab PO DAILY heart health 03/10/22 fexofenadine 60 mg tablet 60 mg PO DAILY allergies 03/10/22 glimepiride 1 mg tablet 1 tab PO BID diabetes 03/10/22 levothyroxine 125 mcg tablet 1 tab PO SUTUWETHFRSA thyroid 03/10/22 metformin 1,000 mg tablet 1 tab PO BID diabetes 03/10/22 pantoprazole 20 mg tablet,delayed release 1 tab PO DAILY reflux 03/10/22 simvastatin 10 mg tablet 1 tab PO DAILY cholesterol 03/10/22 sitagliptin phosphate 100 mg tablet (Januvia) 1 tab PO DAILY diabetes 03/10/22 trazodone 50 mg tablet 1 tab PO QHS sleep 03/10/22 amlodipine 2.5 mg tablet 2.5 mg PO DAILY 03/21/23 telmisartan 20 mg tablet 20 mg PO DAILY 03/21/23 fluticasone 250 mcg-salmeterol 50 mcg/dose blistr powdr for inhalation 1 ea inhalation BID 04/13/25 ipratropium bromide 42 mcg (0.06 %) nasal spray 2 spray intranasal 4X/DAY 04/13/25 levothyroxine 125 mcg tablet (Euthyrox) 62.5 mcg PO MO 04/13/25 magnesium chloride 64 mg (magnesium chloride) tablet,delayed release (Mag 64) 128 mg PO DAILY 04/13/25 cxbeuipfrded-ygsvkuzv-gobcvo tablet (A Thru Z High Potency tablet) 1 tab PO DAILY 04/13/25 meclizine 12.5 mg tablet 12.5 mg PO TID PRN PRN Dizziness #20 tabs 04/14/25 Hospital Course Operations None Procedures None Summary of Care Provided Minutes Spent on Discharge: 30 Hospital Course: This 84-year-old white female was seen in the emergency room at [facility] with complaints of vertigo. Patient has a history of chronic vertigo, she felt dizzy and had nausea and vomiting. Patient developed an unstable gait and had a mild fall which caused her to bump her left elbow. During a prior admission in February/March 2022, a CTA done on her head and neck showed a left internal carotid stenosis of 70% and a right internal carotid stenosis of the left and 50%. Repeat CT scan of the head and neck with IV contrast was performed and revealed approximately 50% narrowing of the proximal right ICA and approximately 70% narrowing of the proximal left ICA. Patient was given a scopolamine patch in the emergency room and an IV dose of Reglan in addition to fluid. There was modest improvement in her vertiginous symptoms but she did not feel safe being discharged home. Patient was admitted to PCU, she was given Antivert for her dizziness, she was seen in consultation by vascular surgery and had a carotid duplex performed which showed less than 50% stenosis of both of the internal carotid arteries. On 04/14/25, patient was seen and examined: On examination she appeared in good health and spirits, she does not appear to be in any distress. Vital signs as documented. Skin warm and dry and without overt rashes. Neck without JVD, thyroid appears normal, trachea is midline, neck is supple. Lungs clear, normal air movement was noted. Heart exam notable for regular rhythm, normal sounds and absence of murmurs, rubs or gallops. Abdomen unremarkable and without evidence of organomegaly, masses, or abdominal aortic enlargement, bowel sounds are present in all 4 quadrants, no abdominal tenderness was noted. Extremities nonedematous, no cyanosis was noted, no clubbing was noted. Neuro: Cranial nerves II through XII are grossly intact, no focal motor deficits were noted, sensation to light touch and pinprick is intact, motor exam 5/5 throughout. Psych: Patient is alert and oriented x3, she does not appear anxious or depressed, she does not appear agitated. Patient appears stable for discharge home on 04/14/25 Weight / BMI Weight Weight: 69.1 kg Body Mass Index (BMI) 25.3 ABG / Lab / Microbiology Data 04/14/25 05:33 04/14/25 05:33 Laboratory: Laboratory Results - last 24 hr 04/13/25 16:50: POC Glucose 124 H 04/13/25 23:46: POC Glucose 122 H 04/14/25 05:33: WBC 5.9, RBC 3.94 L, Hgb 11.1 L, Hct 34.0 L, MCV 86.3, MCH 28.2, MCHC 32.6, RDW Std Deviation 49.0 H, RDW Coeff of Armond 15.5 H, Plt Count 220, MPV 9.9, Immature Gran % (Auto) 0.300, Neut % (Auto) 61.1, Lymph % (Auto) 29.1, [place] % (Auto) 6.9, Eos % (Auto) 1.9, Baso % (Auto) 0.7, Absolute Neuts (auto) 3.6, Absolute Lymphs (auto) 1.72, Nucleated RBC % 0, Sodium 136, Potassium 3.7, Chloride 103, Carbon Dioxide 22.0, Anion Gap 11, BUN 8, Creatinine 0.69 L, Estim Creat Clear Calc 52.93, Est GFR (MDRD) Non-Af 87, BUN/Creatinine Ratio 11.9, G lucose 117 H, Calcium 8.6 04/14/25 06:03: POC Glucose 125 H D/C Instructions Weight Bearing Status: Full weight bearing DC O2, CPAP, BIPAP Needs Home O2 Discharge instructions: No Meaningful Use Info Meaningful Use Meaningful Use Diagnoses (Choose all that apply): None applicable Discharge Plan Admission Admit Date/Time: 04/13/25 17:10 Primary Reason for Your Visit: Vertigo, headache, nausea and vomiting Attending Provider: Lamberto Olguin Primary Care Provider: Rupinder Lei Consulting Providers: Raj Schroeder; Richi Degroot; Renee Foote Discharge Orders/Prescriptions Prescriptions: New meclizine 12.5 mg Tablet 12.5 mg PO TID PRN PRN (Reason: Dizziness) Qty: 20 0RF Continued amlodipine 2.5 mg tablet 2.5 mg PO DAILY telmisartan 20 mg tablet 20 mg PO DAILY trazodone 50 mg tablet 1 tab PO QHS fexofenadine 60 mg Tablet 60 mg PO DAILY simvastatin 10 mg tablet 1 tab PO DAILY glimepiride 1 mg tablet 1 tab PO BID pantoprazole 20 mg tablet,delayed release (DR/EC) 1 tab PO DAILY metformin 1,000 mg tablet 1 tab PO BID levothyroxine 125 mcg tablet 1 tab PO SUTUWETHFRSA Januvia 100 mg tablet 1 tab PO DAILY Patient Comments: 1 tablet by mouth once a day aspirin 81 mg Tablet,Chewable 1 tab PO DAILY fluticasone propion-salmeterol 250-50 mcg/dose blister with device 1 ea inhalation BID ipratropium bromide 42 mcg (0.06 %) spray,non-aerosol 2 spray INTRANASAL 4X/DAY Patient Comments: [NO ORIGINAL SIG] levothyroxine [Euthyrox] 125 mcg tablet 62.5 mcg PO MO magnesium chloride [Mag 64] 64 mg tablet,delayed release (DR/EC) 128 mg PO DAILY A Thru Z High Potency Tablet 1 tab PO DAILY Referrals / Follow Up: Rupinder Lei MD [Primary Care Provider] - See Referral Note (In 2 weeks) Disposition Disposition (needs filled in before D/C Order can be placed): Home, Self Care Charges/Coding Visit Charges Inpatient E&M: 06861 Disch Hosp
--- NOTE | 2025-04-14 15:26 | CASEMGMT ---
SKY ADAIR updated by therapy that patient would benefit from outpatient vestibular and walker at discharge. SKY ADAIR in to discuss with patient. Patient agreeable and prefers [facility] and [facility]. Patient had no further needs or concerns. Patient had no further questions or concerns. SKY ADAIR received scripts and sent referral to [facility] with request to call patient to schedule appt. SKY ADAIR sent referral to [facility] with arrangements for walker to be delivered to room.
--- NOTE | 2025-04-14 15:34 | PHA.DC_ITS ---
Pharmacy [facility] Counseling Pharmacy Service has performed discharge medication reconciliation and counseling for this patient. The patient's discharge medication list was reviewed for discrepancies and discrepancies were resolved. The patient was counseled on the following discharge medications and changes in medications for homegoing were reviewed. The Reason for Use, instructions for use, and potential side effects were reviewed for all new medications. The patient's questions regarding all of their medications were answered. 1. Meclizine 12.5 mg PO TID PRN dizziness The patient was able to verbally demonstrate an understanding of their discharge medications. Medications at Discharge Home Medications aspirin 81 mg chewable tablet 1 tab PO DAILY heart health 03/10/22 fexofenadine 60 mg tablet 60 mg PO DAILY allergies 03/10/22 glimepiride 1 mg tablet 1 tab PO BID diabetes 03/10/22 levothyroxine 125 mcg tablet 1 tab PO SUTUWETHFRSA thyroid 03/10/22 metformin 1,000 mg tablet 1 tab PO BID diabetes 03/10/22 pantoprazole 20 mg tablet,delayed release 1 tab PO DAILY reflux 03/10/22 simvastatin 10 mg tablet 1 tab PO DAILY cholesterol 03/10/22 sitagliptin phosphate 100 mg tablet (Januvia) 1 tab PO DAILY diabetes 03/10/22 trazodone 50 mg tablet 1 tab PO QHS sleep 03/10/22 amlodipine 2.5 mg tablet 2.5 mg PO DAILY 03/21/23 telmisartan 20 mg tablet 20 mg PO DAILY 03/21/23 fluticasone 250 mcg-salmeterol 50 mcg/dose blistr powdr for inhalation 1 ea inhalation BID 04/13/25 ipratropium bromide 42 mcg (0.06 %) nasal spray 2 spray intranasal 4X/DAY 04/13/25 levothyroxine 125 mcg tablet (Euthyrox) 62.5 mcg PO MO 04/13/25 magnesium chloride 64 mg (magnesium chloride) tablet,delayed release (Mag 64) 128 mg PO DAILY 04/13/25 envektcrykxl-ccufwexb-wmxvbd tablet (A Thru Z High Potency tablet) 1 tab PO DAILY 04/13/25 meclizine 12.5 mg tablet 12.5 mg PO TID PRN PRN Dizziness #20 tabs 04/14/25
--- NOTE | 2025-04-14 15:40 | CHAPLAIN ---
Type of Pastoral Visit _x__ Initial Visit ___ Follow-up Visit ___ On-call Visit ___ General Patient Visit ___ Spiritual Assessment ___ Family Conference ___ Bereavement ___ Rapid Response ___ Code Blue ___ Other (describe below) Pastoral Care Referral From _x__ Patient ___ Family ___ Nurse ___ Physician ___ Financial Assistant ___ Therapist'S Assistant ___ Other (describe below) Sacrament/Intervention _x__ Active listening ___ Anointing ___ Adventist ___ Bereavement ___ Communion _x__ Shital exploration ___ _x__ Life review _x__ Prayer ___ Reconciliation ___ Sacrament of Sick _x__ Supportive presence ___ Wedding ___ Other (describe below) Pastoral Comments this patient was often seen during visits with her that was a previous patient; her has since and discussion goes to how she is coping and managing life alone; pt refers to her coping mechanisms and her involvement in bahai; pt is sad because she was sick and missed bahai yesterday; pt then gives her review of 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
== END 2025-04-14 17:21 | disposition home or self-care (01) | DRG 149 ==
LOC: ED 04-13 00:32 → PCU 04-13 01:26
PROVIDERS: Internal Medicine; Admitting Provider Internal Medicine; Emergency Provider Emergency Medicine; PCP Internal Medicine; Visit Provider Internal Medicine
DX: R42 Dizziness and giddiness (principal); E87.1 Hypo-osmolality and hyponatremia; E11.9 Type 2 diabetes mellitus without complications; I65.23 Occlusion and stenosis of bilateral carotid arteries; I10 Essential (primary) hypertension; F32.A Depression, unspecified; E03.9 Hypothyroidism, unspecified; J30.2 Other seasonal allergic rhinitis; I25.10 Atherosclerotic heart disease of native coronary artery without angina pectoris; M19.90 Unspecified osteoarthritis, unspecified site; K21.9 Gastro-esophageal reflux disease without esophagitis; E78.5 Hyperlipidemia, unspecified; E66.3 Overweight; R26.9 Unspecified abnormalities of gait and mobility; Z79.82 Long term (current) use of aspirin; Z79.899 Other long term (current) drug therapy; Z79.84 Long term (current) use of oral hypoglycemic drugs; Z68.26 Body mass index [BMI] 26.0-26.9, adult
CPT/HCPCS: 36415; 70496; 70498; 80048; 80053; 80061; 81001; 82607; 82746; 82962; 83036; 83735; 84100; 84443; 85025; 85610; 85730; 93005; 93880; 94640; 94668; 97116; 97162; 97166; 97530; 99252; 99285; Q9967; A4216; G0463; J2405

== ENCOUNTER 2025-05-06 15:00 | Outpatient (RCR) | payer MEDICARE, OTHER, SELFPAY ==
--- NOTE | 2025-04-21 15:00 | HP.PTEVAL_ITS ---
Patient's Visit Information Visit Information Visit Information: EAR PARKER is a 84 year old F referred to Physical Therapy by Dr. Lamberto Olguin DO with a diagnosis of Dizziness. Date of Evaluation: 04/21/25 Physical Therapist: Richi Franco, DPT, OCS, CSCS Visit Plan Frequency: 2x /Week Duration: 4-6 Weeks Plan: 2x/week for 4-6 weeks for... IE HEP seated VOR H 60 seconds 6x/day and recover, also educated on balance safety with HO for both. to use walker until further notice. Each visit please 1. progress VOR HEP, 2. work on balance and funcitonal balance climbing into tub, walking with less AD., progress to hoe balance as safety allows. Work back to [employer] workout as safety allows. Subjective Subjective: Woke up dizzy a week ago, fell that day after vomitting due to sickness and SARAH, Fell in the afternoon due to dizzyness but did not get hurt, got up herself and called squad that night. Hospital CT scan and work up and s aid carotid artery was slightly plugged. Stayed two nights, nothing else to makes dizzy. Sent home Monday still dizzy. Walking test was OK though, fell again when went home using walker . Got up and went to bed. Relief with closing eyes and be still. For the last week is improving each day. Still feels weak and i am used to going to [employer] 6x/week. Currently feels inteemrittently dizzy. A tinge walking in to PT today. Feels lightheaded and feels unsteady. Meclizine helps. Sleeping OK. Speends day sitting around and getting tired of that. No more falls. Lives alone in one story, no steps. Basic ADLS all I, but spnge bath, has to climb over a tub. Objective Objective: Walks into PT with wh walker slowly with short steps and hesitant but mod I. Trasnfers chair and bed I. cervical aROM WFL adn without pain as is UE AROM. - B hallpike annie, - roll test. Oculomotor: no nystagmus with gaze or head shake normal pursuit and saccades albeit slow. Slight + L head thrust - skew eye deviation, - ocular tilt VOR is symptomatic H 30 seconds 4/10 for 20 seconds Gait is hesitant and worried about falling. Balance/Special Test Scores Functional Gait Assessment Score: 17 % Disability: 43.3400 Dizziness Score: 30 Goals Goal 1:: FGA to reduce fallr isk Goal Time Frame: 4-6 Weeks Goal 2:: Dizzy nauseous feeling abolished Goal Time Frame: 4-6 Weeks Goal 3:: DHI score 8 or less Goal Time Frame: 4-6 Weeks Goal 4:: return to [employer] for workout Goal Time Frame: 4-6 Weeks Goal 5:: Climb in bathtub I with rails Goal Time Frame: 4-6 Weeks Rehabilitation Potential Physical Therapy Diagnosis: Likely vestib hypofucniton causing balance and dizzy concerns and ADL deficits Rehabilitation Potential: Good Anticipated Interventions Patient/Client Instruction: Educate patient on: Condition and Risk Factors For the Purpose of:: To increase tolerance to activity/condition/position and To improve ability of physical actions for home/community/work/leisure Therapeutic Exercise to Include: Balance training and Gait and locomotor training Comment: vestibular For the Purpose of:: To improve muscle performance and motor function, To increase tolerance to activity/condition/position, To improve ability of physical actions for home/community/work/leisure, To improve gait and locomotor functions and To improve safety Text: Thank you for the opportunity to evaluate your patient. For Medicare and Medicare HMO plans, please review the plan of care and approve it. It will need to be FAXED BACK to us at [phone] for Medicare purposes. For Medicare only, by signing this I certify the plan of care. Please let me know if there are questions or concerns regarding this plan of care. Physician Signature: Date:
--- NOTE | 2025-05-06 15:21 | HP.PTDCSUM ---
Discharge Summary D/C summary: It has been my pleasure to treat ERA PARKER referred by Dr. Lamberto Olguin DO, with the diagnosis of Dizziness for a total of 5 visit(s). Discharge Date: 05/06/25 Please see the following information for a summary of their discharge status. Subjective Subjective: Just came from [facility] and no problem. No dizzyness , no falls. climbing in and out of bathtub.Life is normal. Overall Improvement % Improvement: 100 Objective Objective/Function: FGa improved, walking is safe although still short steps until cued, then corrects. VOR asymptomatic. stepping over while holding on easily. Goals Goal 1:: FGA to reduce fallr isk Goal Progress: Goal Met Goal 2:: Dizzy nauseous feeling abolished Goal Progress: Goal Met Goal 3:: DHI score 8 or less Goal Progress: Goal Met Goal 4:: return to [employer] for workout Goal Progress: Goal Met Goal 5:: Climb in bathtub I with rails Goal Progress: Goal Met Plan Plan: d/c D/C Information d/c sentence: If there are questions or concerns regarding this patient's physical therapy, please feel free to call me at [phone]. Thank you for the referral of this patient. Sincerely, Richi Franco, DPT, OCS, CSCS Balance/Gait/Functional tests Balance/Special Test Scores Functional Gait Assessment Score: 25 % Disability: 16.6700 Dizziness Score: 0 Improvement % Improvement: 100
== END 2025-05-06 19:00 | disposition home or self-care (01) ==
LOC: PT 15:00
PROVIDERS: PCP Internal Medicine; Referring Provider Internal Medicine; Visit Provider Internal Medicine
DX: R42 Dizziness and giddiness (principal); I65.23 Occlusion and stenosis of bilateral carotid arteries; R26.9 Unspecified abnormalities of gait and mobility
CPT/HCPCS: 97110; 97161; 97530